=== PATIENT | female | born 1960 | race Caucasian/White ===

== ENCOUNTER 2018-07-26 16:58 | Inpatient (IN) | payer OTHER ==
[2018-07-26 19:07] LABS: Basophils # (A) 0.1 k/uL (0-0.2); Basophils % (A) 1 %; Eosinophils # (A) 0.1 k/uL (0-0.7); Eosinophils % (A) 2 %; HCT 44.6 % (34.0-46.0); HGB 14.7 gm/dL (11.4-16.0); Lymphocytes # (A) 1.6 k/uL (1.0-4.8); Lymphocytes % (A) 23 %; MCH 28.5 pg (25.0-35.0); MCV 86.3 fL (80.0-100.0); Mean Platelet Volume 5.9; Monocytes # (A) 0.4 k/uL (0-1.0); Monocytes % (A) 6 %; Neutrophils # (A) 4.6 k/uL (1.3-7.7); Neutrophils % (A) 66 %; Platelet Count 419 k/uL (150-450); RBC 5.17 m/uL (3.80-5.40)
[2018-07-26 19:10] LABS: ALT 15 U/L (9-52); AST 19 U/L (14-36); Albumin 3.7 g/dL (3.5-5.0); Alkaline Phosphatase 77 U/L (38-126); Amylase 52 U/L (30-110); Anion Gap 17 mmol/L; Blood Urea Nitrogen 15 mg/dL (7-17); Calcium 9.4 mg/dL (8.4-10.2); Carbon Dioxide 21 mmol/L (22-30); Chloride 94 mmol/L (98-107); Glucose 108 mg/dL (74-99); Lipase 29 U/L (23-300); Sodium 132 mmol/L (137-145); Total Bilirubin 0.8 mg/dL (0.2-1.3); Total Protein 7.5 g/dL (6.3-8.2)
[2018-07-26 19:11] LABS: Potassium 3.5 mmol/L (3.5-5.1)
[2018-07-26] MEDS ORDERED: SODIUM CHLORIDE 0.9% 1,000 ML IV ONE (20:21)
[2018-07-26 20:24] LABS: Amorphous Sediment,Urine Occasional /hpf; Appearance,Urine Cloudy (Clear); Bilirubin,Urine 1+ (Negative); Blood,Urine Negative (Negative); Color,Urine Dark Yellow; Glucose,Urine (UA) Negative (Negative); Ketones,Urine 3+ (Negative); Leukocyte Esterase,Urine Small (Negative); Mucus,Urine Many /hpf; Nitrite,Urine Negative (Negative); Protein,Urine 1+ (Negative); RBC,Urine 3 /hpf (0-5); Specific Gravity,Urine 1.028 (1.001-1.035); Squamous Epithelial Cell,Urine 25 /hpf (0-4); WBC,Urine 16 /hpf (0-5)
--- NOTE | 2018-07-26 20:27 | XR ---
EXAMINATION TYPE: XR KUB DATE OF EXAM: 07/26/2018 COMPARISON: NONE HISTORY: Pain for 3 weeks with nausea, intermittent pain for 6 months. TECHNIQUE: 2 upright views to include the abdomen and pelvis FINDINGS: The visualized lung bases and pleural spaces are unremarkable. There is no pneumoperitoneum and no pneumatosis. There are several mildly dilated gas-distended loops of bowel in the upper quadrant and mid abdominal areas. There are a few of these loops in the lower quadrants, but less than the upper quadrants. Gas is seen within the colon. There is prominent volume of stool throughout the descending and sigmoi d colon. IMPRESSION: 1. PATTERN SUGGESTS NONOBSTRUCTIVE ILEUS; WOULD SUGGEST SHORT INTERVAL FOLLOW-UP RADIOGRAPHS OR CT. 2. RADIOGRAPHIC FINDINGS OF CONSTIPATION.
--- NOTE | 2018-07-26 21:02 | ED ---
Abdominal Pain HPI - General Source: patient Mode of arrival: ambulatory Limitations: no limitations <Shannon Donaldson - Last Filed: 07/27/18 02:07> <Julia Marcos - Last Filed: 07/27/18 02:52> - General Chief Complaint: Abdominal Pain Stated Complaint: POSS DEHYDRATION, SENT BY [facility] Time Seen by Provider: 07/26/18 19:25 - History of Present Illness Initial Comments: 58 year-old female patient presents to the emergency department today sent in by her primary care physician for dehydration. The states that she has been having abdominal pain for the last 6 months. Patient states that multiple times a day she gets this crampy severe abdominal pain. States that she has had frequent nausea and vomiting. States that she is unable to keep down any food or fluids. States it has been 3-4 days and she has had a decent meal. She denies any fevers or chills with this. Denies any chest pain or shortness of breath. States she has not had a bowel movement, but states she has been eating. States that she did have labs that her primary care physician's office that showed she was dehydrated. Patient denies any recent rash, back pain, numbness, tingling, dizziness, weakness, hematuria, dysuria, urinary urgency, urinary frequency, headache, visual changes, or any other complaints. (Shannon Donaldson) - Related Data Home Medications Medication Instructions Recorded Confirmed Omeprazole 20 mg PO DAILY 07/26/18 07/27/18 Sucralfate [Carafate] 1 gram PO TID 07/26/18 07/26/18 Allergies Allergy/AdvReac Type Severity Reaction Status Date / Time No Known Allergies Allergy Verified 07/26/18 20:15 Review of Systems ROS Other: All systems not noted in ROS Statement are negative. <Shannon Donaldson - Last Filed: 07/27/18 02:07> ROS Other: All systems not noted in ROS Statement are negative. <Julia Marcos - Last Filed: 07/27/18 02:52> ROS Statement: Those systems with pertinent positive or pertinent negative responses have been documented in the HPI. Past Medical History Past Medical History: No Reported History History of Any Multi-Drug Resistant Organisms: None Reported Past Surgical History: Hysterectomy, Orthopedic Surgery Past Psychological History: No Psychological Hx Reported Smoking Status: Never smoker Past Alcohol Use History: Occasional Past Drug Use History: None Reported - Past Family History Mother Family Medical History: Coronary Artery Disease (CAD), Diabetes Mellitus Father Family Medical History: Diabetes Mellitus Additional Family Medical History / Comment(s): parkinsons <Shannon Donaldson - Last Filed: 07/27/18 02:07> General Exam Limitations: no limitations General appearance: alert, in no apparent distress, other (This is a well- developed, well-nourished adult female patient in no acute distress. Vital signs upon presentation are temperature 98.3F, pulse 127, respirations 18, blood pressure 117/90, pulse ox 95% on room air.) Eye exam: Present: normal appearance, PERRL, EOMI. Absent: scleral icterus, conjunctival injection, periorbital swelling ENT exam: Present: normal exam, normal oropharynx, mucous membranes moist Respiratory exam: Present: normal lung sounds bilaterally. Absent: respiratory distress, wheezes, rales, rhonchi, stridor Cardiovascular Exam: Present: regular rate, normal rhythm, normal heart sounds. Absent: systolic murmur, diastolic murmur, rubs, gallop, clicks GI/Abdominal exam: Present: soft, tenderness (Lower abdominal tenderness), normal bowel sounds. Absent: distended, guarding, rebound, rigid Neurological exam: Present: alert, oriented X3, CN II-XII intact Psychiatric exam: Present: normal affect, normal mood Skin exam: Present: warm, dry, intact, normal color. Absent: rash <Shannon Donaldson M - Last Filed: 07/27/18 02:07> Vital Signs 07/26/18 07/26/18 17:54 23:39 Temperature 98.3 F 97.7 F Pulse Rate 127 H 90 Respiratory 18 16 Rate Blood Pressure 117/90 118/83 O2 Sat by Pulse 95 98 Oximetry Medical Decision Making - Lab Data Result diagrams: 07/26/18 18:40 07/26/18 18:40 - EKG Data -: EKG Interpreted by Ca - Radiology Data Radiology results: report reviewed, image reviewed <Shannon Donaldson M - Last Filed: 07/27/18 02:07> - Lab Data Result diagrams: 07/26/18 18:40 07/26/18 18:40 <Julia Marcos - Last Filed: 07/27/18 02:52> - Medical Decision Making 58 year-old female patient presents to the emergency department today for evaluation of abdominal pain, vomiting, dehydration. Physical examination did reveal lower abdominal tenderness. Labs reviewed and are relatively unremarkable however should exhibit a anion gap of 17 with carbon dioxide of 21. We did administer IV fluids. Urinalysis showed 16 white blood cells however 25 squamous epithelial cells are present, we did send this for culture. We did obtain CT abdomen and pelvis which showed evidence for diverticular abscess and partial bowel obstruction. We will admit to medicine with consult to surgery. Dr. Marcos my attending did discuss the case with plumbing engineering draftsperson surgeon Dr. Mcnamara. (Shannon Donaldson) I personally saw and examined the patient. I reviewed and agree with the mid- level provider findings including all diagnostic interpretations and treatment plans. I discussed patient care with general surgeon on-call Dr. Mcnamara who recommended admission to medicine, continued IV fluid rehydration, continued antibiotics. She will evaluate the patient. I discussed patient care with Dr. Bear of the [facility] who accepts the admission. (Julia Marcos) - Lab Data Lab Results 07/26/18 07/26/18 07/26/18 Range/Units 18:40 18:40 20:05 WBC 7.0 (3.8-10.6) k/uL RBC 5.17 (3.80-5.40) m/uL Hgb 14.7 (11.4-16.0) gm/dL Hct 44.6 (34.0-46.0) % MCV 86.3 (80.0-100.0) fL MCH 28.5 (25.0-35.0) pg MCHC 33.0 (31.0-37.0) g/dL RDW 13.0 (11.5-15.5) % Plt Count 419 (150-450) k/uL Neutrophils % 66 % Lymphocytes % 23 % Monocytes % 6 % Eosinophils % 2 % Basophils % 1 % Neutrophils # 4.6 (1.3-7.7) k/uL Lymphocytes # 1.6 (1.0-4.8) k/uL Monocytes # 0.4 (0-1.0) k/uL Eosinophils # 0.1 (0-0.7) k/uL Basophils # 0.1 (0-0.2) k/uL Sodium 132 L (137-145) mmol/L Potassium 3.5 (3.5-5.1) mmol/L Chloride 94 L (98-107) mmol/L Carbon Dioxide 21 L (22-30) mmol/L Anion Gap 17 mmol/L BUN 15 (7-17) mg/dL Creatinine 0.68 (0.52-1.04) mg/dL Est GFR (CKD-EPI)AfAm >90 (>60 ml/min/1.73 sqM) Est GFR (CKD-EPI)NonAf >90 (>60 ml/min/1.73 sqM) Glucose 108 H (74-99) mg/dL Calcium 9.4 (8.4-10.2) mg/dL Total Bilirubin 0.8 (0.2-1.3) mg/dL AST 19 (14-36) U/L ALT 15 (9-52) U/L Alkaline Phosphatase 77 (38-126) U/L Total Protein 7.5 (6.3-8.2) g/dL Albumin 3.7 (3.5-5.0) g/dL Amylase 52 (30-110) U/L Lipase 29 (23-300) U/L Urine Color Dark Yellow Urine Appearance Cloudy H (Clear) Urine pH 6.0 (5.0-8.0) Ur Specific [place] 1.028 (1.001-1.035) Urine Protein 1+ H (Negative) Urine Glucose (UA) Negative (Negative) Urine Ketones 3+ H (Negative) Urine Blood Negative (Negative) Urine Nitrite Negative (Negative) Urine Bilirubin 1+ H (Negative) Urine Urobilinogen 6.0 (<2.0) mg/dL Ur Leukocyte Esterase Small H (Negative) Urine RBC 3 (0-5) /hpf Urine WBC 16 H (0-5) /hpf Ur Squamous Epith Cells 25 H (0-4) /hpf Amorphous Sediment Occasional H (None) /hpf Urine Mucus Many H (None) /hpf - EKG Data EKG Comments: EKG obtained at 2115 shows sinus tachycardia with a ventricular rate of 104, IL interval 126, QRS duration 72, QT 366, QTC 481. No evidence of ST elevation or depression. (Shannon Donaldson) - Radiology Data CT abdomen and pelvis with contrast was obtained. Report was reviewed in its entirety. Impression by Dr. Rani Vick reveals a 4 cm mean diameter diverticular abscess in the left lower quadrant, with associated partial bowel obstruction. (Shannon Donaldson) Disposition Decision to Admit Reason: Admit from EC Decision Date: 07/26/18 Decision Time: 23:20 <Shannon Donaldson - Last Filed: 07/27/18 02:07> <Julia Marcos - Last Filed: 07/27/18 02:52> Clinical Impression: Colonic diverticular abscess, Partial bowel obstruction Disposition: ADMITTED IP TO THIS [facility] Condition: Serious
--- NOTE | 2018-07-26 22:08 | CT ---
EXAMINATION TYPE: CT abdomen pelvis w con DATE OF EXAM: 07/26/2018 COMPARISON: None HISTORY: ABD pain x3 weeks with nausea. HX of intermittent ABD pain x6 months. No previous report. CT DLP: 624.8 mGycm Automated exposure control for dose reduction was used. TECHNIQUE: Helical acquisition of images was performed from the lung bases through the pelvis. CONTRAST: Performed without Oral Contrast and with IV Contrast, patient injected with 100 mL of Isovue 300. FINDINGS: LUNG BASES: No significant abnormality is appreciated. LIVER/GB: No significant abnormality is appreciated. PANCREAS: No significant abnormality is seen. SPLEEN: No significant abnormality is seen. ADRENALS: No significant abnormality is seen. KIDNEYS: No significant abnormality is seen. FREE AIR: No free air is visualized. No peritoneal fluid. RETROPERITONEAL ADENOPATHY: None visualized REPRODUCTIVE ORGANS: No significant abnormality is seen URINARY BLADDER: No significant abnormality is seen. PELVIC ADENOPATHY: None visualized. OSSEOUS STRUCTURES: No significant abnormality is seen. BOWEL: In the left lower quadrant anteriorly is an ill-defined focal fluid collection measuring 4 cm mean diameter. This is situated at the undersurface of the distal most descending colon, and likely represents diverticular abscess as there is circumferential mural thickening to the colon in this pos ition, i.e. the junction of the descending and proximal sigmoid colon. There is distention of the col on and small bowel proximal to this finding, with relative collapse of the caliber of the colon dista lly but with gas seen throughout the sigmoid and rectum. There is no pneumatosis. OTHER: No acute vascular findings. IMPRESSION: 4 CM MEAN DIAMETER DIVERTICULAR ABSCESS IN THE LEFT LOWER QUADRANT, WITH ASSOCIATED PARTIAL BOWEL OBS TRUCTION.
[2018-07-26] MEDS ORDERED: NALOXONE 0.4 MG/ML 1 ML VIAL IV PRN (22:30)
[2018-07-26] MEDS ORDERED: MORPHINE SULFATE 4 MG/ML SYRINGE IV PRN (22:30)
[2018-07-26] MEDS ORDERED: PIPERACILLIN-TAZOBACTAM 3.375 GM in SODIUM CHLORIDE 0.9% 100 ML IVPB STA (23:08)
[2018-07-26] MEDS: SODIUM CHLORIDE 0.9% 1,000 ML IV SCH (23:36)
--- NOTE | 2018-07-27 06:31 | P.HPIM ---
History of Present Illness H&P Date: 07/26/18 Chief Complaint: abd pain, poor PO intake 58-year-old female with no significant past medical history Patient presented to the hospital upon recommendations of her PCP for treatment of dehydration. Patient went today to visit her PCP due to progressive poor by mouth intake for the past few weeks, along with repeated nausea vomiting. Patient started to feel generalized weakness and tired as she has been having abdominal pain for the past 6 months progressive in nature she thought she might be having the flu and was refusing to go to the hospital or her doctor to be evaluated. She describes random attacks during the day of crampy abdominal pain varies in severity usually all over her belly. She denies any associated diarrhea or bloody bowel movement or any fevers or chills. However over the past week her nausea vomiting became more frequent and she couldn't keep anything down. Which triggered her to seek medical attention. Patient went to her PCP and blood work suggested dehydration for which he recommended that she goes to the hospital. In the emergency department CAT scan of the abdomen showed 4 cm diverticular abscess with partial bowel obstruction for which she was admitted for further management. Patient otherwise denies any similar conditions in the past or history of diverticular disease. She denies any fevers or chills denies any chest pain or trouble breathing denies any GI bleeding denies any focal neurologic deficits. Upon interviewing the patient she was feeling comfortable as she reported that the pain comes and goes Review of Systems Pertinent positives as noted in HPI. All other systems were reviewed and are negative Past Medical History Past Medical History: No Reported History History of Any Multi-Drug Resistant Organisms: None Reported Past Surgical History: Hysterectomy, Orthopedic Surgery Past Psychological History: No Psychological Hx Reported Smoking Status: Never smoker Past Alcohol Use History: Occasional Past Drug Use History: None Reported - Past Family History Mother Family Medical History: Coronary Artery Disease (CAD), Diabetes Mellitus Father Family Medical History: Diabetes Mellitus Additional Family Medical History / Comment(s): parkinsons Medications and Allergies Home Medications Medication Instructions Recorded Confirmed Type Omeprazole 20 mg PO DAILY 07/26/18 07/27/18 History Sucralfate [Carafate] 1 gram PO TID 07/26/18 07/26/18 History Allergies Allergy/AdvReac Type Severity Reaction Status Date / Time No Known Allergies Allergy Verified 07/26/18 20:15 Physical Exam Vitals: Vital Signs Temp Pulse Pulse Resp BP BP Pulse Ox 07/27/18 04:15 98.6 F 109 H 18 96 07/27/18 00:33 97.5 F L 114 H 18 120/81 97 07/27/18 00:30 114 H 07/26/18 23:39 97.7 F 90 16 118/83 98 07/26/18 17:54 98.3 F 127 H 18 117/90 95 Intake and Output 07/26/18 07/26/18 07/27/18 14:59 22:59 06:59 Output Total 250 Balance -250 Output: Urine 250 Other: Voiding Method Toilet # Voids 1 Weight 52.163 kg Constitutional: No acute distress, conversant, pleasant, patient looks older than her stated age Eyes: Anicteric sclerae, moist conjunctiva, no lid-lag Pupils equal round reactive to light ENMT: NC/AT Oropharynx clear, no erythema, exudates Neck: Supple, FROM, no masses, or JVD No carotid bruits No thyromegaly Lungs: Clear to auscultation Clear to percussion Normal respiratory effort, no accessory muscle use Cardiovascular: Heart regular in rate and rhythm, No murmurs, gallops, or rubs No peripheral edema Abdominal: Soft Tenderness to palpation mainly over the left lower quadrant with rebound tenderness and voluntary guarding no rigidity Abdomen moving with respiration Normoactive bowel sounds throughout No hepatomegaly, No splenomegaly No palpable mass No abdominal wall hernia noted Skin: Normal temperature, tone, texture, turgor No induration No subcutaneous nodules No rash, lesions No ulcers Extremities: No digital cyanosis No clubbing Pedal pulses intact and symmetrical Radial pulses intact and symmetrical No calf tenderness Psychiatric: Alert and oriented to person, place and time Appropriate affect fair judgment Neuro Muscles Strength 5/5 in all 4 extremities Sensation to light touch grossly present throughout Cranial nerves II-XII grossly intact No focal sensory deficits Lymphatics: no palpable cervical or supraclavicular , or inguinal lymph nodes Results CBC & Chem 7: 07/26/18 18:40 07/26/18 18:40 Labs: Abnormal Lab Results - Last 24 Hours (Table) 07/26/18 07/26/18 Range/Units 18:40 20:05 Sodium 132 L (137-145) mmol/L Chloride 94 L (98-107) mmol/L Carbon Dioxide 21 L (22-30) mmol/L Glucose 108 H (74-99) mg/dL Urine Appearance Cloudy H (Clear) Urine Protein 1+ H (Negative) Urine Ketones 3+ H (Negative) Urine Bilirubin 1+ H (Negative) Ur Leukocyte Esterase Small H (Negative) Urine WBC 16 H (0-5) /hpf Ur Squamous Epith Cells 25 H (0-4) /hpf Amorphous Sediment Occasional H (None) /hpf Urine Mucus Many H (None) /hpf Thrombosis Risk Factor Assmnt - Choose All That Apply Each Factor Represents 1 point: Age 41-60 years Other Risk Factors: No Other congenital or acquired thrombophilia - If yes, enter type in comment: No Thrombosis Risk Factor Assessment Total Risk Factor Score: 1 Thrombosis Risk Factor Assessment Level: Low Risk Assessment and Plan Assessment: 58-year-old female with no significant past medical history admitted as inpatient with anticipated length of stay of >48 hours, acute diverticular abscess with partial bowel obstruction patient had been having symptoms progressive for the past 6 months however over the past couple weeks symptoms worsen and was associated with poor by mouth intake. and repeated nausea vomiting Plan: Acute diverticular abscess Partial bowel obstruction Dehydration secondary to poor by mouth intake Nothing by mouth Aggressive IV fluid hydration Morphine when necessary for pain control IV antibiotics with Zosyn Check cultures General surgery consult Close monitoring vital signs Follow-up labs DVT prophylaxis heparin subcu 3 times a day Surrogate decision-maker: Patient CODE STATUS: Full code Discussed with: Patient, ER, RN Anticipated discharge: 48-[address]: Home A total of 60 minutes was spent on the care of this complex patient more than 50% of the time was spent in counseling and care coordination.
[2018-07-27] MEDS ORDERED: KETOROLAC 30 MG/ML 1 ML VIAL IVP STA (07:57)
[2018-07-27] MEDS: HEPARIN SODIUM,PORCINE 5,000 UNIT/ML 1 ML VIAL SQ SCH ×2 (08:50→16:19)
[2018-07-27] MEDS: PIPERACILLIN-TAZOBACTAM 3.375 GM in SODIUM CHLORIDE 0.9% 100 ML IVPB SCH ×2 (08:55→16:27)
[2018-07-27] MEDS ORDERED: IOPAMIDOL-300 CONTRAST 30 ML VIAL (ORAL USE) PO PRN (12:50)
[2018-07-27] MEDS: PANTOPRAZOLE 40 MG/10 ML VIAL IVP SCH (12:59)
[2018-07-27] MEDS: ONDANSETRON 4 MG/2 ML VIAL IVP PRN (13:09)
[2018-07-27 13:19] LABS: INR 2.2 (<1.2); Prothrombin Time 21.6 sec (9.0-12.0)
--- NOTE | 2018-07-27 14:27 | P.GSCN ---
<Maya Reyes A - Last Filed: 07/27/18 14:29> History of Present Illness Consult date: 07/27/18 Reason for Consult: Diverticular abscess Requesting physician: Shannon Donaldson History of present illness: CHIEF COMPLAINT: Abdominal pain HISTORY OF PRESENT ILLNESS: A 58-year-old female who presented to the emergency room a chief complaint of abdominal pain. Patient states she has intermittent abdominal pain for the last 6 months. She reports over the past few weeks the pain has increased in severity. She states she has had very little to eat or drink in the past three weeks. She reports bloating. Denies nausea or vomiting. Reports she has not undergone a colonoscopy in the past. PAST MEDICAL HISTORY: See list. PAST SURGICAL HISTORY: See list. MEDICATIONS: See list. ALLERGIES: See list. SOCIAL HISTORY: No illicit drug use. REVIEW OF SYSTEMS: CONSTITUTIONAL: Denies fever or chills. HEENT: Denies blurred vision, vision changes, or eye pain. Denies hemoptysis ENDOCRINE: Denies heat or cold intolerance. CARDIOVASCULAR: Denies chest pain or pressure. RESPIRATORY: No shortness of breath. GASTROINTESTINAL: Reports abdominal pain. Reports bloating. Denies nausea or vomiting. NEURO: Denies history of seizures. PSYCH: No depression or suicidal ideation HEMATOLOGIC: Denies bleeding disorders. LYMPHATIC: The patient denies any lumps and bumps around the neck. GENITOURINARY: Denies any blood in urine or increased urinary frequency. MUSCULOSKELETAL: Denies myalgias. Denies joint swelling. Denies decreased range of motion beyond patients baseline. SKIN: Denies pruitis. Denies rash. PHYSICAL EXAM: VITAL SIGNS: Currently stable. GENERAL: Well-developed in no acute distress. HEENT: No sclera icterus. Extraocular movements grossly intact. Moist buccal mucosa. Head is atraumatic, normocephalic. Hears conversational speech. No nasal drainage. NECK: Supple without lymphadenopathy. CHEST: Non-labored respirations and equal bilateral excursions. CARDIOVASCULAR: Regular rate with regular rhythm. Palpable 2+ radial pulses. ABDOMEN: Soft. Distended. Pain and tenderness noted upon palpation of left lower quadrant. MUSCULOSKELETAL: No clubbing, cyanosis or edema. NEUROLOGIC: No focal or lateralizing signs. Cranial nerves II through XII grossly intact. PSYCH: Appropriate affect. Alert and oriented to person, place and time. SKIN: Well perfused. Good skin turgor. IMAGING: Per radiology dictation: 1. CT abdomen/pelvis: 4cm mean diameter diverticular abscess in the left lower quadrant with associated partial bowel obstruction ASSESSMENT: 1. Abdominal pain, bloating, and decreased PO intake x 3 weeks 2. Diverticular abscess 3. Partial bowel obstruction, secondary to above PLAN: Various treatment options discussed with patient including surgery resulting in colostomy. Patient would like to try all other measures before proceeding with surgical intervention. Will consult interventional radiology for drainage of abscess. Patient may have water and ice chips as tolerated. If patient complains of increased bloating or begins vomiting, she will require NG tube for decompression. Continue IV antibiotics. Continue IV fluids. Patient will also require colonoscopy in the future when acute issues are resolved. Nurse practitioner note has been reviewed by physician. Signing provider agrees with the documented findings, assessment, and plan of care. Past Medical History Past Medical History: No Reported History History of Any Multi-Drug Resistant Organisms: None Reported Past Surgical History: Hysterectomy, Orthopedic Surgery Past Psychological History: No Psychological Hx Reported Smoking Status: Never smoker Past Alcohol Use History: Occasional Past Drug Use History: None Reported - Past Family History Mother Family Medical History: Coronary Artery Disease (CAD), Diabetes Mellitus Father Family Medical History: Diabetes Mellitus Additional Family Medical History / Comment(s): parkinsons Medications and Allergies Home Medications Medication Instructions Recorded Confirmed Type Omeprazole 20 mg PO DAILY 07/26/18 07/27/18 History Sucralfate [Carafate] 1 gram PO TID 07/26/18 07/26/18 History Allergies Allergy/AdvReac Type Severity Reaction Status Date / Time No Known Allergies Allergy Verified 07/26/18 20:15 Surgical - Exam Vital Signs Temp Pulse Resp BP Pulse Ox 98.3 F 127 H 18 117/90 95 07/26/18 17:54 07/26/18 17:54 07/26/18 17:54 07/26/18 17:54 07/26/18 17:54 Results - Labs 07/26/18 18:40 07/26/18 18:40 Abnormal Lab Results - Last 24 Hours (Table) 07/26/18 07/26/18 07/27/18 Range/Units 18:40 20:05 13:01 PT 21.6 H (9.0-12.0) sec INR 2.2 H (<1.2) Sodium 132 L (137-145) mmol/L Chloride 94 L (98-107) mmol/L Carbon Dioxide 21 L (22-30) mmol/L Glucose 108 H (74-99) mg/dL Urine Appearance Cloudy H (Clear) Urine Protein 1+ H (Negative) Urine Ketones 3+ H (Negative) Urine Bilirubin 1+ H (Negative) Ur Leukocyte Esterase Small H (Negative) Urine WBC 16 H (0-5) /hpf Ur Squamous Epith Cells 25 H (0-4) /hpf Amorphous Sediment Occasional H (None) /hpf Urine Mucus Many H (None) /hpf Microbiology - Last 24 Hours (Table) 07/26/18 20:05 Urine Culture - Preliminary Urine,Voided Diabetes panel 07/26/18 Range/Units 18:40 Sodium 132 L (137-145) mmol/L Potassium 3.5 (3.5-5.1) mmol/L Chloride 94 L (98-107) mmol/L Carbon Dioxide 21 L (22-30) mmol/L BUN 15 (7-17) mg/dL Creatinine 0.68 (0.52-1.04) mg/dL Glucose 108 H (74-99) mg/dL Calcium 9.4 (8.4-10.2) mg/dL AST 19 (14-36) U/L ALT 15 (9-52) U/L Alkaline Phosphatase 77 (38-126) U/L Total Protein 7.5 (6.3-8.2) g/dL Albumin 3.7 (3.5-5.0) g/dL Calcium panel 07/26/18 Range/Units 18:40 Calcium 9.4 (8.4-10.2) mg/dL Albumin 3.7 (3.5-5.0) g/dL Pituitary panel 07/26/18 Range/Units 18:40 Sodium 132 L (137-145) mmol/L Potassium 3.5 (3.5-5.1) mmol/L Chloride 94 L (98-107) mmol/L Carbon Dioxide 21 L (22-30) mmol/L BUN 15 (7-17) mg/dL Creatinine 0.68 (0.52-1.04) mg/dL Glucose 108 H (74-99) mg/dL Calcium 9.4 (8.4-10.2) mg/dL Adrenal panel 07/26/18 Range/Units 18:40 Sodium 132 L (137-145) mmol/L Potassium 3.5 (3.5-5.1) mmol/L Chloride 94 L (98-107) mmol/L Carbon Dioxide 21 L (22-30) mmol/L BUN 15 (7-17) mg/dL Creatinine 0.68 (0.52-1.04) mg/dL Glucose 108 H (74-99) mg/dL Calcium 9.4 (8.4-10.2) mg/dL Total Bilirubin 0.8 (0.2-1.3) mg/dL AST 19 (14-36) U/L ALT 15 (9-52) U/L Alkaline Phosphatase 77 (38-126) U/L Total Protein 7.5 (6.3-8.2) g/dL Albumin 3.7 (3.5-5.0) g/dL Assessment and Plan (1) Abdominal pain Current Visit: Yes Status: Acute Code(s): R10.9 - UNSPECIFIED ABDOMINAL PAIN SNOMED Code(s): 57982991 (2) Decreased oral intake Current Visit: Yes Status: Acute Code(s): R63.8 - OTHER SYMPTOMS AND SIGNS CONCERNING FOOD AND FLUID INTAKE SNOMED Code(s): 354483218 (3) Colonic diverticular abscess Current Visit: Yes Status: Acute Code(s): K57.20 - DVTRCLI OF LG INT W PERFORATION AND ABSCESS W/O BLEEDING SNOMED Code(s): 954758207 (4) Partial bowel obstruction Current Visit: Yes Status: Acute Code(s): K56.600 - PARTIAL INTESTINAL OBSTRUCTION, UNSPECIFIED TO CAUSE SNOMED Code(s): 57535176 <Ava Mcnamara N - Last Filed: 07/27/18 16:52> Surgical - Exam Vital Signs Temp Pulse Resp BP Pulse Ox 98.3 F 127 H 18 117/90 95 07/26/18 17:54 07/26/18 17:54 07/26/18 17:54 07/26/18 17:54 07/26/18 17:54 Results - Labs 07/26/18 18:40 07/26/18 18:40 Abnormal Lab Results - Last 24 Hours (Table) 07/26/18 07/26/18 07/27/18 Range/Units 18:40 20:05 13:01 PT 21.6 H (9.0-12.0) sec INR 2.2 H (<1.2) Sodium 132 L (137-145) mmol/L Chloride 94 L (98-107) mmol/L Carbon Dioxide 21 L (22-30) mmol/L Glucose 108 H (74-99) mg/dL Urine Appearance Cloudy H (Clear) Urine Protein 1+ H (Negative) Urine Ketones 3+ H (Negative) Urine Bilirubin 1+ H (Negative) Ur Leukocyte Esterase Small H (Negative) Urine WBC 16 H (0-5) /hpf Ur Squamous Epith Cells 25 H (0-4) /hpf Amorphous Sediment Occasional H (None) /hpf Urine Mucus Many H (None) /hpf 07/27/18 Range/Units 15:26 PT 22.2 H (9.0-12.0) sec INR 2.3 H (<1.2) Sodium (137-145) mmol/L Chloride (98-107) mmol/L Carbon Dioxide (22-30) mmol/L Glucose (74-99) mg/dL Urine Appearance (Clear) Urine Protein (Negative) Urine Ketones (Negative) Urine Bilirubin (Negative) Ur Leukocyte Esterase (Negative) Urine WBC (0-5) /hpf Ur Squamous Epith Cells (0-4) /hpf Amorphous Sediment (None) /hpf Urine Mucus (None) /hpf Microbiology - Last 24 Hours (Table) 07/26/18 20:05 Urine Culture - Preliminary Urine,Voided Diabetes panel 07/26/18 Range/Units 18:40 Sodium 132 L (137-145) mmol/L Potassium 3.5 (3.5-5.1) mmol/L Chloride 94 L (98-107) mmol/L Carbon Dioxide 21 L (22-30) mmol/L BUN 15 (7-17) mg/dL Creatinine 0.68 (0.52-1.04) mg/dL Glucose 108 H (74-99) mg/dL Calcium 9.4 (8.4-10.2) mg/dL AST 19 (14-36) U/L ALT 15 (9-52) U/L Alkaline Phosphatase 77 (38-126) U/L Total Protein 7.5 (6.3-8.2) g/dL Albumin 3.7 (3.5-5.0) g/dL Calcium panel 07/26/18 Range/Units 18:40 Calcium 9.4 (8.4-10.2) mg/dL Albumin 3.7 (3.5-5.0) g/dL Pituitary panel 07/26/18 Range/Units 18:40 Sodium 132 L (137-145) mmol/L Potassium 3.5 (3.5-5.1) mmol/L Chloride 94 L (98-107) mmol/L Carbon Dioxide 21 L (22-30) mmol/L BUN 15 (7-17) mg/dL Creatinine 0.68 (0.52-1.04) mg/dL Glucose 108 H (74-99) mg/dL Calcium 9.4 (8.4-10.2) mg/dL Adrenal panel 07/26/18 Range/Units 18:40 Sodium 132 L (137-145) mmol/L Potassium 3.5 (3.5-5.1) mmol/L Chloride 94 L (98-107) mmol/L Carbon Dioxide 21 L (22-30) mmol/L BUN 15 (7-17) mg/dL Creatinine 0.68 (0.52-1.04) mg/dL Glucose 108 H (74-99) mg/dL Calcium 9.4 (8.4-10.2) mg/dL Total Bilirubin 0.8 (0.2-1.3) mg/dL AST 19 (14-36) U/L ALT 15 (9-52) U/L Alkaline Phosphatase 77 (38-126) U/L Total Protein 7.5 (6.3-8.2) g/dL Albumin 3.7 (3.5-5.0) g/dL Assessment and Plan Plan: Agree with above. Patient does not want surgery. She feels much better. Will need re-evaluation for elevated INR. At this time, no surgical intervention.
[2018-07-27 15:46] LABS: INR 2.3 (<1.2); Prothrombin Time 22.2 sec (9.0-12.0)
[2018-07-27] MEDS: SODIUM CHLORIDE 0.9% 1,000 ML IV SCH (16:26)
[2018-07-27] MEDS: KETOROLAC 30 MG/ML 1 ML VIAL IVP SCH ×2 (17:20→23:59)
[2018-07-27] MEDS ORDERED: PHYTONADIONE ORAL 5 MG/5 ML ORAL.SYRG PO STA (23:26)
[2018-07-27] MEDS ORDERED: ACETAMINOPHEN TAB 325 MG TAB PO PRN (23:32)
[2018-07-28] MEDS: SODIUM CHLORIDE 0.9% 1,000 ML IV SCH ×2 (05:11→16:10)
[2018-07-28] MEDS: KETOROLAC 30 MG/ML 1 ML VIAL IVP SCH ×4 (06:12→23:37)
[2018-07-28 06:42] LABS: HCT 38.2 % (34.0-46.0); HGB 12.6 gm/dL (11.4-16.0); MCH 29.4 pg (25.0-35.0); Mean Platelet Volume 6.2; Platelet Count 347 k/uL (150-450); RBC 4.29 m/uL (3.80-5.40); RDW 13.5 % (11.5-15.5); WBC 7.3 k/uL (3.8-10.6)
[2018-07-28 06:56] LABS: Anion Gap 10 mmol/L; Blood Urea Nitrogen 8 mg/dL (7-17); Carbon Dioxide 21 mmol/L (22-30); Chloride 101 mmol/L (98-107); Glucose 83 mg/dL (74-99); Potassium 4.4 mmol/L (3.5-5.1); Sodium 132 mmol/L (137-145)
[2018-07-28 07:16] LABS: INR 1.4 (<1.2); Partial Thromboplastin Time 28.2 sec (22.0-30.0); Prothrombin Time 13.9 sec (9.0-12.0)
[2018-07-28] MEDS: PIPERACILLIN-TAZOBACTAM 3.375 GM in SODIUM CHLORIDE 0.9% 100 ML IVPB SCH ×5 (08:31→23:38)
[2018-07-28] MEDS: PANTOPRAZOLE 40 MG/10 ML VIAL IVP SCH (08:31)
[2018-07-28] MEDS ORDERED: SODIUM CHLORIDE 0.9% 1,000 ML IV ONE (10:23)
[2018-07-28] MEDS ORDERED: MEROPENEM 1 GM in SODIUM CHLORIDE 0.9% 100 ML IVPB STA (10:29)
--- NOTE | 2018-07-28 11:04 | P.PN ---
<Maya Reyes Sara - Last Filed: 07/28/18 14:40> Subjective Progress Note Date: 07/28/18 CHIEF COMPLAINT: Abdominal pain HISTORY OF PRESENT ILLNESS: Patient examined at the bedside. She states her abdominal pain is about the same as yesterday. Denies passing flatus or bowel movement. Tolerating small sips of water. Patients INR was found to be 2.2 yesterday. Patient is not on anti-coagulation. Patient received Vitamin K and FFP per medicine. INR this morning is 1.4. IR is consulted for drainage of abscess. Patient was febrile overnight with a temperature of 100.4F. She is tachycardic with a heart rate in the 120s. She is currently receiving IV fluid bolus. PHYSICAL EXAM: VITAL SIGNS: Currently stable. GENERAL: Well-developed in no acute distress. HEENT: No sclera icterus. Extraocular movements grossly intact. Moist buccal mucosa. Head is atraumatic, normocephalic. Hears conversational speech. No nasal drainage. NECK: Supple without lymphadenopathy. CHEST: Non-labored respirations and equal bilateral excursions. CARDIOVASCULAR: Regular rate with regular rhythm. Palpable 2+ radial pulses. ABDOMEN: Soft. Distended. Pain and tenderness noted upon palpation of left lower quadrant. MUSCULOSKELETAL: No clubbing, cyanosis or edema. NEUROLOGIC: No focal or lateralizing signs. Cranial nerves II through XII grossly intact. PSYCH: Appropriate affect. Alert and oriented to person, place and time. SKIN: Well perfused. Good skin turgor. IMAGING: Per radiology dictation: 1. CT abdomen/pelvis: 4cm mean diameter diverticular abscess in the left lower quadrant with associated partial bowel obstruction ASSESSMENT: 1. Abdominal pain, bloating, and decreased PO intake x 3 weeks 2. Diverticular abscess 3. Partial bowel obstruction, secondary to above 4. Coagulopathy, not on anticoagulation (patient received 1 dose of subcu heparin upon admission), no previous history of liver disease, etiology unclear PLAN: Patient receiving IV bolus. Continue IV fluids post bolus. Interventional radiology is on consult for drainage of abscess. Patient may have sips of water as tolerated. NPO for 2 hours prior to procedure. If patient complains of increased bloating or begins vomiting, she will require NG tube for decompression. Patient aware she may require surgery resulting in colostomy, but will attempt other measures before proceeding with surgical intervention. Consult hem/onc for evaluation of coagulopathy. Nurse practitioner note has been reviewed by physician. Signing provider agrees with the documented findings, assessment, and plan of care. Objective - Vital Signs Vital signs: Vital Signs Temp 98.3 F 07/28/18 09:45 Pulse 112 H 07/28/18 09:45 Resp 20 07/28/18 09:45 BP 96/65 07/28/18 09:45 Pulse Ox 96 07/28/18 09:45 Intake & Output 07/27/18 07/28/18 07/28/18 18:59 06:59 18:59 Intake Total 283 10 Output Total 500 500 Balance -217 -490 Weight 52.163 kg Intake: Oral 10 Blood Product 283 Ffp 24 Cpd Unit 283 [id number] Output: Urine 500 500 Other: Voiding Method Toilet Toilet # Voids 2 - Labs CBC & Chem 7: 07/28/18 06:21 07/28/18 06:21 Labs: Abnormal Lab Results - Last 24 Hours (Table) 07/27/18 07/27/18 07/28/18 Range/Units 13:01 15:26 06:21 PT 21.6 H 22.2 H 13.9 H (9.0-12.0) sec INR 2.2 H 2.3 H 1.4 H (<1.2) Fibrinogen 518 H (200-500) mg/dL Sodium (137-145) mmol/L Carbon Dioxide (22-30) mmol/L 07/28/18 Range/Units 06:21 PT (9.0-12.0) sec INR (<1.2) Fibrinogen (200-500) mg/dL Sodium 132 L (137-145) mmol/L Carbon Dioxide 21 L (22-30) mmol/L Microbiology - Last 24 Hours (Table) 07/26/18 20:05 Urine Culture - Final Urine,Voided Assessment and Plan (1) Abdominal pain Current Visit: Yes Status: Acute Code(s): R10.9 - UNSPECIFIED ABDOMINAL PAIN SNOMED Code(s): 06625892 (2) Decreased oral intake Current Visit: Yes Status: Acute Code(s): R63.8 - OTHER SYMPTOMS AND SIGNS CONCERNING FOOD AND FLUID INTAKE SNOMED Code(s): 638973588 (3) Colonic diverticular abscess Current Visit: Yes Status: Acute Code(s): K57.20 - DVTRCLI OF LG INT W PERFORATION AND ABSCESS W/O BLEEDING SNOMED Code(s): 632327342 (4) Partial bowel obstruction Current Visit: Yes Status: Acute Code(s): K56.600 - PARTIAL INTESTINAL OBSTRUCTION, UNSPECIFIED TO CAUSE SNOMED Code(s): 38718182 <Ava Mcnamara N - Last Filed: 07/30/18 12:32> Subjective Patient is sore following IR drainage for diverticular abscess. No abdominal bloating. May have liquid diet sparingly. Per patient request, continue conservative management. Objective - Vital Signs Vital signs: Vital Signs Temp 97.3 F L 07/30/18 09:13 Pulse 144 H 07/30/18 09:13 Resp 28 H 07/30/18 09:13 BP 92/61 07/30/18 09:13 Pulse Ox 94 L 07/30/18 09:13 Intake & Output 07/29/18 07/30/18 07/30/18 18:59 06:59 18:59 Intake Total 80 3700 Output Total 525 500 Balance 80 -525 3200 Intake: IV 3700 Oral 80 Output: Urine 525 400 Estimated Blood Loss 100 Other: Voiding Method Toilet Toilet - Labs CBC & Chem 7: 07/30/18 09:24 07/30/18 09:24 Labs: Abnormal Lab Results - Last 24 Hours (Table) 07/30/18 07/30/18 07/30/18 Range/Units 06:17 06:17 06:17 WBC 2.5 L (3.8-10.6) k/uL Neutrophils # (Manual) (1.3-7.7) k/uL Lymphocytes # (Manual) 0.50 L (1.0-4.8) k/uL Metamyelocytes # (Man) 0.13 H (0) k/uL Myelocytes # (Manual) (0) k/uL PT 13.1 H (9.0-12.0) sec INR 1.3 H (<1.2) Sodium 135 L (137-145) mmol/L Potassium (3.5-5.1) mmol/L Chloride 108 H (98-107) mmol/L Carbon Dioxide 12 L (22-30) mmol/L Glucose 111 H (74-99) mg/dL Plasma Lactic Acid Cali (0.7-2.0) mmol/L Calcium 8.3 L (8.4-10.2) mg/dL AST 12 L (14-36) U/L Total Protein 4.8 L (6.3-8.2) g/dL Albumin 2.1 L (3.5-5.0) g/dL 07/30/18 07/30/18 07/30/18 Range/Units 08:20 09:24 09:24 WBC 1.8 L (3.8-10.6) k/uL Neutrophils # (Manual) 1.00 L (1.3-7.7) k/uL Lymphocytes # (Manual) 0.50 L (1.0-4.8) k/uL Metamyelocytes # (Man) 0.07 H (0) k/uL Myelocytes # (Manual) 0.04 H (0) k/uL PT (9.0-12.0) sec INR (<1.2) Sodium 134 L (137-145) mmol/L Potassium 3.2 L (3.5-5.1) mmol/L Chloride 113 H (98-107) mmol/L Carbon Dioxide 13 L (22-30) mmol/L Glucose (74-99) mg/dL Plasma Lactic Acid Cali 2.6 H* (0.7-2.0) mmol/L Calcium 7.5 L (8.4-10.2) mg/dL AST 11 L (14-36) U/L Total Protein 4.1 L (6.3-8.2) g/dL Albumin 1.7 L (3.5-5.0) g/dL Microbiology - Last 24 Hours (Table) 07/28/18 14:30 Gram Stain - Preliminary Cyst Body Fluid Culture - Preliminary Escherichia coli Alpha Hemolytic Streptococcus
--- NOTE | 2018-07-28 11:13 | P.PN ---
Subjective Progress Note Date: 07/28/18 Patient currently nothing by mouth, reports her pain control is adequate, previously on morphine now on Toradol. He does have left lower quadrant abdominal pain. Patient afebrile overnight, and continues to be tachycardic. Initial INR elevated at 2.2 he received 1 dose of subcu heparin. Objective - Vital Signs Vital signs: Vital Signs Temp 98.3 F 07/28/18 09:45 Pulse 112 H 07/28/18 09:45 Resp 20 07/28/18 09:45 BP 96/65 07/28/18 09:45 Pulse Ox 96 07/28/18 09:45 Intake & Output 07/27/18 07/28/18 07/28/18 18:59 06:59 18:59 Intake Total 283 10 Output Total 500 500 Balance -217 -490 Weight 52.163 kg Intake: Oral 10 Blood Product 283 Ffp 24 Cpd Unit 283 [id number] Output: Urine 500 500 Other: Voiding Method Toilet Toilet # Voids 2 - Exam Constitutional: No acute distress, conversant, pleasant Eyes: Anicteric sclerae, moist conjunctiva, no lid-lag, PERRLA ENMT: NC/AT,Oropharynx clear, no erythema, exudates Neck:Supple, FROM, no masses, or JVD, No carotid bruits; No thyromegaly Lungs: Clear to auscultation, Clear to percussion, Normal respiratory effort, no accessory muscle use Cardiovascular: Tachycardic regular rhythm, No murmurs, gallops, or rubs no peripheral edema Abdominal: Soft tender to palpation in the left lower quadrant, nom distended, no guarding, no rebound or rigidity, Normoactive bowel sounds No hepatomegaly, No splenomegaly, No palpable mass No abdominal wall hernia noted Skin: Normal temperature, tone, texture, turgor, No induration No subcutaneous nodules, No rash, lesions, No ulcers Extremities:No digital cyanosis No clubbing, Pedal pulses intact and symmetrical Radial pulses intact and symmetrical Normal gait and station, No calf tenderness Psychiatric: Alert and oriented to person, place and time, Appropriate affect Intact judgement Neuro: Muscles Strength 5/5 in all 4 extremities, Sensation to light touch grossly present throughout, Cranial nerves II-XII grossly intact. No focal sensory deficits - Labs CBC & Chem 7: 07/28/18 06:21 07/28/18 06:21 Labs: Abnormal Lab Results - Last 24 Hours (Table) 07/27/18 07/27/18 07/28/18 Range/Units 13:01 15:26 06:21 PT 21.6 H 22.2 H 13.9 H (9.0-12.0) sec INR 2.2 H 2.3 H 1.4 H (<1.2) Fibrinogen 518 H (200-500) mg/dL Sodium (137-145) mmol/L Carbon Dioxide (22-30) mmol/L 07/28/18 Range/Units 06:21 PT (9.0-12.0) sec INR (<1.2) Fibrinogen (200-500) mg/dL Sodium 132 L (137-145) mmol/L Carbon Dioxide 21 L (22-30) mmol/L Microbiology - Last 24 Hours (Table) 07/26/18 20:05 Urine Culture - Final Urine,Voided Assessment and Plan (1) Sepsis Narrative/Plan: * Secondary to diverticular abscess Urine culture no growth * Patient afebrile overnight tmax 100.4, without leukocytosis continues to be tachycardic, and blood pressure borderline * We'll give her 1 L normal saline bolus and increase her maintenance fluids to 100 mL per hour of normal saline * Previously on IV Zosyn and discontinue and start Merrem with plans for ID consultation Current Visit: Yes Status: Acute Code(s): A41.9 - SEPSIS, UNSPECIFIED ORGANISM SNOMED Code(s): 63700830 (2) Colonic diverticular abscess Narrative/Plan: * 4 cm diverticular abscess in the left lower quadrant * Interventional radiology consulted yesterday for drainage of that particular abscess * Procedure not done at this time secondary to coagulopathy Current Visit: Yes Status: Acute Code(s): K57.20 - DVTRCLI OF LG INT W PERFORATION AND ABSCESS W/O BLEEDING SNOMED Code(s): 694754983 (3) Coagulopathy Narrative/Plan: * Likely secondary to heparin * INR down to 1.4 today from 2.2 after receiving a unit of FFP Current Visit: Yes Status: Acute Code(s): D68.9 - COAGULATION DEFECT, UNSPECIFIED SNOMED Code(s): 03917789 (4) Partial bowel obstruction Narrative/Plan: * Appreciate general surgery recommendations * Patient doing conservative management at this time, further options include colostomy Current Visit: Yes Status: Acute Code(s): K56.600 - PARTIAL INTESTINAL OBSTRUCTION, UNSPECIFIED TO CAUSE SNOMED Code(s): 16877783 (5) Abdominal pain Current Visit: Yes Status: Acute Code(s): R10.9 - UNSPECIFIED ABDOMINAL PAIN SNOMED Code(s): 87942037 Plan: Anticipated discharge 2-3 days
[2018-07-28 11:30] LABS: ALT 24 U/L (9-52); AST 14 U/L (14-36); Albumin 2.9 g/dL (3.5-5.0); Alkaline Phosphatase 65 U/L (38-126); Total Bilirubin 1.4 mg/dL (0.2-1.3)
[2018-07-28] MEDS ORDERED: HYDROmorphone 0.5 MG/0.5 ML SYRINGE IVP PRN (13:46)
[2018-07-28] MEDS ORDERED: HYDROmorphone 1 MG/ML 1 ML SYRINGE IVP PRN (14:00)
--- NOTE | 2018-07-28 15:09 | CT ---
EXAMINATION TYPE: CT guided abscess drainage DATE OF EXAM: 07/28/2018 HISTORY: Diverticular abscess COMPARISON: CT 07/26/2018 PROCEDURE: Maximal barrier technique was utilized. The skin over suitable path to the abscess in the left lower quadrant was localized with CT and the overlying skin prepped and draped. Lidocaine was used for lo arturo anesthesia. A skin landon made with a scalpel. Access was gained using CT guidance with a 21-gaug e needle, purulent material returned in the hub of the needle. A 0.018 inch wire was advanced and th e access site was upsized, the wire was upsized and subsequently an 8.5-[place] drain was deployed wit hin the abscess cavity and fixed in place. Catheter attached to gravity drainage. No immediate comp lication. Purulent material sent for laboratory analysis and draining into the bag. The patient rem ained in stable condition. IMPRESSION: STATUS POST CT GUIDED ABSCESS DRAINAGE, MICROBIOLOGY ANALYSIS IS PENDING. THIS PROCEDURE WAS PERFORM ED BY THE UNDERSIGNED.
[2018-07-28] MEDS ORDERED: MEROPENEM 1 GM in SODIUM CHLORIDE 0.9% 100 ML IVPB SCH (16:00)
[2018-07-28] MEDS ORDERED: PHYTONADIONE ORAL 5 MG/5 ML ORAL.SYRG PO STA (17:41)
--- NOTE | 2018-07-28 17:41 | P.CONS ---
History of Present Illness - Reason for Consult Consult date: 07/28/18 Coagulopathy. Diverticular abscess - History of Present Illness The patient is a 58-year-old white female, with overall well controlled medical problems. The patient had developed abdominal pain, about 6 months prior to her admission here. This was described as crampy, and diffuse throughout the abdomen. Initially this was fairly mild and intermittent. However it progressively became more persistent and severe. She also noted decrease in appetite, and some slow progressive weight loss. Over the past week to 10 days, she had developed fairly persistent nausea and vomiting, with markedly decreased oral intake. She therefore went into her PCP, and worse sent in for treatment of dehydration and evaluation of her symptoms. She had a computed tomography scan of the abdomen and pelvis, as well as an abdominal x- ray. He was no evidence of any obstruction or ileus. On computed tomography scan she was noted to have a 4 cm diverticular abscess. She was therefore admitted to the hospital. Initial coags revealed increased INR of 2.2. The patient was not on any anticoagulation. She received oral vitamin K, 5 mg. INR improved to 1.4 today. The patient is now status post drain placement. Consult was placed for further evaluation and recommendations The patient denied any prior history suggestive of a bleeding or clotting disorder. She has had a hysterectomy, as well as dental extractions in the past in addition to 2 normal vaginal deliveries without any bleeding complications whatsoever. There is no family history of the same. Review of Systems Constitutional: Reports fatigue, Reports poor appetite, Reports weakness, Reports weight loss Eyes: denies blurred vision, denies pain Ears: deny: decreased hearing, ear discharge, earache, tinnitus Ears, nose, mouth and throat: Denies headache, Denies sore throat Cardiovascular: Reports decreased exercise tolerance Respiratory: Denies cough Gastrointestinal: Reports abdominal pain, Reports loss of appetite, Reports nausea, Reports vomiting Genitourinary: Denies dysuria, Denies hematuria Menstruation: Reports postmenopausal Musculoskeletal: Reports muscle weakness, Denies myalgias Integumentary: Denies pruritus, Denies rash Neurological: Denies numbness, Denies weakness Psychiatric: Denies anxiety, Denies depression Endocrine: Reports fatigue, Reports weight change Hematologic/Lymphatic: Reports as per HPI Past Medical History Past Medical History: No Reported History History of Any Multi-Drug Resistant Organisms: None Reported Past Surgical History: Hysterectomy, Orthopedic Surgery Past Psychological History: No Psychological Hx Reported Smoking Status: Never smoker Past Alcohol Use History: Occasional Past Drug Use History: None Reported - Past Family History Mother Family Medical History: Coronary Artery Disease (CAD), Diabetes Mellitus Father Family Medical History: Diabetes Mellitus Additional Family Medical History / Comment(s): parkinsons Medications and Allergies Home Medications Medication Instructions Recorded Confirmed Type Omeprazole 20 mg PO DAILY 07/26/18 07/27/18 History Sucralfate [Carafate] 1 gram PO TID 07/26/18 07/26/18 History Allergies Allergy/AdvReac Type Severity Reaction Status Date / Time No Known Allergies Allergy Verified 07/26/18 20:15 Physical Exam Vitals: Vital Signs Temp Pulse Pulse Pulse Resp BP BP 07/28/18 16:28 98.6 F 07/28/18 15:32 98.6 F 110 H 16 109/66 07/28/18 14:30 98.6 F 123 H 16 123/74 07/28/18 14:16 18 111/59 07/28/18 14:01 18 108/54 07/28/18 13:56 18 110/58 07/28/18 13:45 18 123/82 07/28/18 13:21 99.5 F 114 H 18 122/74 07/28/18 13:15 99.5 F 114 H 18 122/74 07/28/18 09:45 98.3 F 112 H 20 96/65 07/28/18 08:00 97.9 F 120 H 16 96/65 07/28/18 00:02 100.2 F H 103 H 18 111/70 07/27/18 22:30 100.4 F H 104 H 18 121/67 07/27/18 21:41 99.5 F 103 H 16 115/62 07/27/18 21:11 99.4 F 110 H 18 105/65 07/27/18 21:01 99.0 F 111 H 18 113/64 Pulse Ox 07/28/18 16:28 07/28/18 15:32 98 07/28/18 14:30 97 07/28/18 14:16 96 07/28/18 14:01 95 07/28/18 13:56 95 07/28/18 13:45 95 07/28/18 13:21 98 07/28/18 13:15 98 07/28/18 09:45 96 07/28/18 08:00 95 07/28/18 00:02 97 07/27/18 22:30 96 07/27/18 21:41 97 07/27/18 21:11 96 07/27/18 21:01 95 Intake and Output 07/28/18 07/28/18 07/28/18 06:59 14:59 22:59 Intake Total 10 10 Output Total 100 925 Balance -100 -915 10 Intake: Oral 10 10 Output: Urine 100 925 Other: Voiding Method Toilet Toilet Weight 52.163 kg - Constitutional General appearance: no acute distress - EENT Eyes: EOMI, PERRLA ENT: hearing grossly normal, normal oropharynx - Neck Neck: no lymphadenopathy Thyroid: bilateral: normal size - Respiratory Respiratory: bilateral: CTA - Cardiovascular Rhythm: regular Heart sounds: normal: S1, S2 - Gastrointestinal General gastrointestinal: normal bowel sounds Localized gastrointestinal: tender: LUQ, LLQ, guarding: LUQ, LLQ - Integumentary Integumentary: normal - Neurologic Neurologic: CNII-XII intact - Musculoskeletal Musculoskeletal: generalized weakness, strength equal bilaterally - Psychiatric Psychiatric: A&O x's 3, appropriate affect Results CBC & Chem 7: 07/28/18 06:21 07/28/18 06:21 Labs: Abnormal Lab Results - Last 24 Hours (Table) 07/28/18 07/28/18 Range/Units 06:21 06:21 PT 13.9 H (9.0-12.0) sec INR 1.4 H (<1.2) Fibrinogen 518 H (200-500) mg/dL Sodium 132 L (137-145) mmol/L Carbon Dioxide 21 L (22-30) mmol/L Total Bilirubin 1.4 H (0.2-1.3) mg/dL Total Protein 6.0 L (6.3-8.2) g/dL Albumin 2.9 L (3.5-5.0) g/dL Microbiology - Last 24 Hours (Table) 07/26/18 20:05 Urine Culture - Final Urine,Voided Abdominal x-ray: report reviewed CT scan - abdomen: report reviewed CT scan - pelvis: report reviewed Assessment and Plan (1) Coagulopathy Narrative/Plan: The consult was placed for a coagulopathy, which is apparently new. This corrected rapidly with 1 dose of oral vitamin K. The patient's history is totally not suggestive of any pre-existing, underlying coagulopathy. Therefore her current presentation is most likely due to vitamin K deficiency, from chronically decreased oral intake, and bowel inflammation. As the patient's oral intake is still reduced, and she is on antibiotics, there may be recurrence of this issue. I will give her an additional dose of oral vitamin K. I would recommend ongoing monitoring of her coags. If coagulopathy recurs, then IV vitamin K can be administered. Current Visit: Yes Status: Acute Code(s): D68.9 - COAGULATION DEFECT, UNSPECIFIED SNOMED Code(s): 55355208 (2) Colonic diverticular abscess Narrative/Plan: The patient is status post drain placement. Defer to the admitting service and surgery for ongoing management. The patient has never had a colonoscopy before , and will need evaluation, when stable Current Visit: Yes Status: Acute Code(s): K57.20 - DVTRCLI OF LG INT W PERFORATION AND ABSCESS W/O BLEEDING SNOMED Code(s): 719653723
[2018-07-28] MEDS ORDERED: ACETAMINOPHEN ORAL SUSP (PEDS) 3,840 MG/120 ML BOTTLE PO PRN (18:13)
--- NOTE | 2018-07-28 23:34 | CONS ---
CONSULTATION DATE OF SERVICE: 07/28/2018 REASON FOR CONSULTATION: Antibiotic recommendation. HISTORY OF PRESENT ILLNESS: The patient is a 58-year-old female who presented to [facility] on 07/26/2018 with chief complaints of abdominal pain that apparently has been going on and off for almost 6 months now. However, for the last few days, the pain has been becoming more severe. It is crampy in nature, mostly in the left lower abdominal area, feeling nauseated, vomiting and did not have, unable to keep anything down. The patient has been constipated as well. Did have some low-grade fever and chills. With these symptoms, the patient was evaluated by the ER physician. The patient did have a CT of abdomen and pelvis completed which did show evidence of a diverticulitis with peridiverticular abscess 4 cm in diameter. General surgery was consulted, who recommended CT-guided drainage as the patient was not go for surgery. The patient has been treated with Zosyn. This was switched over to meropenem this morning. Infectious Disease was consulted for further recommendation of antibiotic therapy. The patient categorically denied having been on any antibiotics over the last 6 months for the same condition. REVIEW OF SYSTEM: The pertinent findings have been mentioned in HPI. All other systems reviewed and negative. PAST MEDICAL HISTORY: Denies any major illnesses. PAST SURGICAL HISTORY: Hysterectomy. SOCIAL HISTORY: No history of smoking. Occasionally drinks. No drug use. FAMILY HISTORY: Mother history of coronary artery disease and diabetes. Father history of diabetes mellitus and Parkinson. MEDICATION: Medications include the patient is currently on meropenem 1 g q.8 hours, she is on Protonix, Zofran, Narcan, Toradol, Dilaudid and Tylenol. PHYSICAL EXAMINATION: Blood pressure is 95/56, pulse 122, temperature 99.1, T-max is 100.4, she is 94% on room air. General description is a middle aged female lying in bed in no distress. No tachypnea or accessory muscles for respiration use. HEENT: Shows no pallor or scleral icterus. The oral mucous membrane is moist with no pharyngeal erythema or thrush. Neck trachea is central. No thyromegaly. LUNGS: Unlabored breathing. Clear to auscultation anteriorly. No wheeze or crackles. Heart S1, S2. Regular rate and rhythm. ABDOMEN: Soft. Patient is tender in the left lower quadrant area. No guarding. No rigidity. No organomegaly. EXTREMITIES: No edema of the feet. Skin examination: No rash or mass palpable. Neurological: Patient is awake, alert, oriented x3. Mood and affect normal. LABS: Hemoglobin is 12.3, white count of 7.3, BUN of 8, creatinine 0.63. Electrolytes normal. Liver enzymes normal. Bilirubin is 1.4. CT abdomen and pelvis report as mentioned above. DIAGNOSTIC IMPRESSION AND PLAN: Patient admitted to the hospital with abdominal pain that has been almost for 6 months with recent worsening in this patient who did have evidence of acute sigmoid diverticulitis complicated with perforation and formation of a 4 cm diameter abscess. The likely organism need to cover will be enteric gram-negative both aerobes and anaerobes in this patient who has been not on antibiotics in the recent past, could be sensitive pathogen such as E coli or related jose. PLAN: 1. Discontinue the meropenem. 2. Status post CT guided drainage of this abscess. Culture has been sent for aerobic and anaerobic culture, will follow. 3. We will follow up on clinical condition and culture. 4. We will switch back to Zosyn 3.75 g q.8 hours. 5. We will follow up on clinical condition and culture to further adjust medication if needed. Thank you for this consultation. Will follow this patient along with you. MMODL / IJN: [id number] /
[2018-07-29] MEDS: SODIUM CHLORIDE 0.9% 1,000 ML IV SCH ×3 (01:50→21:53)
[2018-07-29] MEDS: KETOROLAC 30 MG/ML 1 ML VIAL IVP SCH ×2 (05:28→19:16)
[2018-07-29 06:36] LABS: HCT 34.3 % (34.0-46.0); HGB 11.1 gm/dL (11.4-16.0); MCH 29.1 pg (25.0-35.0); MCHC 32.4 g/dL (31.0-37.0); MCV 89.7 fL (80.0-100.0); Mean Platelet Volume 5.8; Platelet Count 315 k/uL (150-450); RBC 3.83 m/uL (3.80-5.40); RDW 13.2 % (11.5-15.5); WBC 7.9 k/uL (3.8-10.6)
[2018-07-29 06:53] LABS: INR 1.4 (<1.2); Prothrombin Time 13.9 sec (9.0-12.0)
[2018-07-29] MEDS: PANTOPRAZOLE 40 MG/10 ML VIAL IVP SCH (07:43)
[2018-07-29] MEDS: PIPERACILLIN-TAZOBACTAM 3.375 GM in SODIUM CHLORIDE 0.9% 100 ML IVPB SCH ×2 (07:44→19:16)
[2018-07-29 07:48] LABS: Albumin 2.2 g/dL (3.5-5.0); Carbon Dioxide 17 mmol/L (22-30)
[2018-07-29 07:51] LABS: ALT 19 U/L (9-52); AST 12 U/L (14-36); Alkaline Phosphatase 47 U/L (38-126); Anion Gap 11 mmol/L; Blood Urea Nitrogen 7 mg/dL (7-17); Calcium 8.2 mg/dL (8.4-10.2); Chloride 105 mmol/L (98-107); Glucose 95 mg/dL (74-99); Potassium 3.7 mmol/L (3.5-5.1); Sodium 133 mmol/L (137-145); Total Bilirubin 1.3 mg/dL (0.2-1.3)
[2018-07-29] MEDS ORDERED: SODIUM CHLORIDE 0.9% 1,000 ML IV ONE ×2 (09:42→13:00)
--- NOTE | 2018-07-29 11:53 | P.PN ---
Progress Note - Text Progress Note Date: 07/29/18 Patient's resting comfortably in bed. She had a CT-guided diverticular abscess drainage performed yesterday. She has some feculent purulent fluid in her drainage bag. On exam her vital signs are stable. Her abdomen soft. Status post CT-guided drainage of diverticular abscess. Patient receive IV antibiotic. She'll be reevaluated in the a.m.
[2018-07-29] MEDS ORDERED: SODIUM CHLORIDE 0.9% 1,000 ML BAG ONE (12:00)
[2018-07-29] MEDS ORDERED: KETOROLAC 30 MG/ML 1 ML VIAL ONE ×2 (12:00)
[2018-07-29] MEDS ORDERED: POLYETHYLENE GLYCOL 3350 17 GM POWD.PACK ONE (12:00)
--- NOTE | 2018-07-29 12:06 | P.PN ---
Subjective Progress Note Date: 07/29/18 The patient appears to be doing well on clear liquid diet no bowel movements this morning no gas or having good bowel sounds, had CT-guided drainage of diverticular abscess yesterday, and cultures are pending preliminary showing gram-negative bacilli. The patient continues to be tachycardic, denies any chest pain or shortness of breath. Does report moderate pain. Objective - Vital Signs Vital signs: Vital Signs Temp 98.1 F 07/29/18 07:45 Pulse 117 H 07/29/18 08:00 Resp 16 07/29/18 07:45 BP 107/70 07/29/18 07:45 Pulse Ox 96 07/29/18 07:45 Intake & Output 07/28/18 07/29/18 07/29/18 18:59 06:59 18:59 Intake Total 20 80 Output Total 925 450 Balance -905 -450 80 Weight 52.163 kg Intake: Oral 20 80 Output: Urine 925 450 Other: Voiding Method Toilet Toilet Toilet - Exam Constitutional: No acute distress, conversant, pleasant Eyes: Anicteric sclerae, moist conjunctiva, no lid-lag, PERRLA ENMT: NC/AT,Oropharynx clear, no erythema, exudates Neck:Supple, FROM, no masses, or JVD, No carotid bruits; No thyromegaly Lungs: Clear to auscultation, Clear to percussion, Normal respiratory effort, no accessory muscle use Cardiovascular: Tachycardic regular rhythm, No murmurs, gallops, or rubs no peripheral edema Abdominal: Soft tender to palpation in the left lower quadrant with drain in place, nonacute abdomen, Normoactive bowel sounds Skin: Normal temperature, tone, texture, turgor, No induration No subcutaneous nodules, No rash, lesions, No ulcers Extremities:No digital cyanosis No clubbing, Pedal pulses intact and symmetrical Radial pulses intact and symmetrical Normal gait and station, No calf tenderness Psychiatric: Alert and oriented to person, place and time, Appropriate affect Intact judgement Neuro: Muscles Strength 5/5 in all 4 extremities, Sensation to light touch grossly present throughout, Cranial nerves II-XII grossly intact. No focal sensory deficits - Labs CBC & Chem 7: 07/29/18 06:11 07/29/18 06:11 Labs: Abnormal Lab Results - Last 24 Hours (Table) 07/29/18 07/29/18 07/29/18 Range/Units 06:11 06:11 06:11 Hgb 11.1 L (11.4-16.0) gm/dL PT 13.9 H (9.0-12.0) sec INR 1.4 H (<1.2) Sodium 133 L (137-145) mmol/L Carbon Dioxide 17 L (22-30) mmol/L Calcium 8.2 L (8.4-10.2) mg/dL AST 12 L (14-36) U/L Total Protein 5.0 L (6.3-8.2) g/dL Albumin 2.2 L (3.5-5.0) g/dL Microbiology - Last 24 Hours (Table) 07/28/18 14:30 Gram Stain - Preliminary Cyst Body Fluid Culture - Preliminary Gram Neg Bacilli 07/28/18 14:30 Anaerobic Culture - Preliminary Abdomen 07/26/18 20:05 Urine Culture - Final Urine,Voided Assessment and Plan (1) Sepsis Narrative/Plan: * Secondary to diverticular abscess Urine culture no growth * Patient afebrile overnight without leukocytosis continues to be tachycardic, and blood pressure borderline * Repeat her 1 L normal saline bolus and continue her maintenance fluids to 100 mL per hour of normal saline * Continue on IV Zosyn per ID recommendations Current Visit: Yes Status: Acute Code(s): A41.9 - SEPSIS, UNSPECIFIED ORGANISM SNOMED Code(s): 81643978 (2) Colonic diverticular abscess Narrative/Plan: * 4 cm diverticular abscess in the left lower quadrant s/p as CT-guided drainage by IR * Continue antibiotics Zosyn * Cultures are pending preliminary indicating gram-negative bacilli Current Visit: Yes Status: Acute Code(s): K57.20 - DVTRCLI OF LG INT W PERFORATION AND ABSCESS W/O BLEEDING SNOMED Code(s): 623773490 (3) Partial bowel obstruction Narrative/Plan: * Appreciate general surgery recommendations * Continue clear liquid diet will plan to advance to regular diet Current Visit: Yes Status: Acute Code(s): K56.600 - PARTIAL INTESTINAL OBSTRUCTION, UNSPECIFIED TO CAUSE SNOMED Code(s): 70741073 (4) Abdominal pain Narrative/Plan: * Pain management per general surgery currently on Toradol and Dilaudid Current Visit: Yes Status: Acute Code(s): R10.9 - UNSPECIFIED ABDOMINAL PAIN SNOMED Code(s): 67577077 (5) Coagulopathy Current Visit: Yes Status: Acute Code(s): D68.9 - COAGULATION DEFECT, UNSPECIFIED SNOMED Code(s): 81707656 (6) Constipation Narrative/Plan: * Initiated on daily MiraLAX Current Visit: Yes Status: Acute Code(s): K59.00 - CONSTIPATION, UNSPECIFIED SNOMED Code(s): 86904651 Plan: Disposition * Anticipate discharge 1-2 days continue antibiotics awaiting wound cultures
[2018-07-29 12:30] LABS: Band Neutrophils % 18 %; Lymphocytes # (M) 1.34 k/uL (1.0-4.8); Neutrophils % (M) 60 %; Nucleated Red Blood Cells 0 /100 WBC (0-0); Total Cells Counted 100
[2018-07-29] MEDS: POLYETHYLENE GLYCOL 3350 17 GM POWD.PACK PO SCH (19:16)
[2018-07-30] MEDS: PIPERACILLIN-TAZOBACTAM 3.375 GM in SODIUM CHLORIDE 0.9% 100 ML IVPB SCH ×4 (00:13→23:23)
[2018-07-30] MEDS: KETOROLAC 30 MG/ML 1 ML VIAL IVP SCH ×2 (00:13→05:43)
[2018-07-30] MEDS: ONDANSETRON 4 MG/2 ML VIAL IVP PRN (04:01)
[2018-07-30] MEDS: HYDROmorphone 0.5 MG/0.5 ML SYRINGE IVP PRN ×3 (05:43→14:36)
[2018-07-30 06:29] LABS: HCT 41.8 % (34.0-46.0); MCH 28.2 pg (25.0-35.0); MCHC 31.1 g/dL (31.0-37.0); MCV 90.7 fL (80.0-100.0); Mean Platelet Volume 6.1; Platelet Count 347 k/uL (150-450); RBC 4.61 m/uL (3.80-5.40); RDW 13.5 % (11.5-15.5); WBC 2.5 k/uL (3.8-10.6)
[2018-07-30] MEDS: SODIUM CHLORIDE 0.9% 1,000 ML IV SCH ×3 (06:34→13:15)
[2018-07-30 06:52] LABS: INR 1.3 (<1.2); Prothrombin Time 13.1 sec (9.0-12.0)
--- NOTE | 2018-07-30 07:13 | PN ---
PROGRESS NOTE DATE OF SERVICE: 07/29/2018 REASON FOR FOLLOWUP: Abdominal abscess. INTERVAL HISTORY: The patient is currently afebrile. The patient did have some abdominal pain, though no worsening. The patient is status post CT-guided drainage of the abscess yesterday. However, currently no output in the drainage bag. The patient denies having any chest pain, shortness of breath or cough. No Diarrhea. PHYSICAL EXAMINATION: Blood pressure is 97/62 with a pulse of 121, temperature 98.5, she is 97% on room air. GENERAL DESCRIPTION: A middle aged female lying in bed in no distress. RESPIRATORY SYSTEM: Unlabored breathing, clear to auscultation anteriorly. HEART: S1, S2. Regular rate and rhythm. ABDOMEN: Soft, mildly tender. No guarding or rigidity. LABS: Hemoglobin is 11.1, white count 7.9, BUN of 7, creatinine 0.53. Abdominal cultures showed a gram-negative bacilli. DIAGNOSTIC IMPRESSION AND PLAN: Patient with an abdominal abscess from ruptured diverticulitis status post CT-guided drainage. Cultures with gram-negative. However, currently with no output in the drainage bag. She will continue on the Zosyn while waiting for the results of this pathogen and may need to repeat CT to make sure resolution of the abscess before transitioning her antibiotic therapy. Continue supportive care. MMODL / IJN: [id number] /
[2018-07-30 07:19] LABS: ALT 18 U/L (9-52); AST 12 U/L (14-36); Albumin 2.1 g/dL (3.5-5.0); Alkaline Phosphatase 61 U/L (38-126); Anion Gap 15 mmol/L; Blood Urea Nitrogen 9 mg/dL (7-17); Calcium 8.3 mg/dL (8.4-10.2); Carbon Dioxide 12 mmol/L (22-30); Chloride 108 mmol/L (98-107); Glucose 111 mg/dL (74-99); Potassium 3.5 mmol/L (3.5-5.1); Sodium 135 mmol/L (137-145); Total Bilirubin 1.2 mg/dL (0.2-1.3); Total Protein 4.8 g/dL (6.3-8.2)
[2018-07-30] MEDS ORDERED: SODIUM CHLORIDE 0.9% 1,000 ML IV ONE ×2 (07:45→08:46)
[2018-07-30] MEDS: PANTOPRAZOLE 40 MG/10 ML VIAL IVP SCH (08:27)
[2018-07-30] MEDS: POLYETHYLENE GLYCOL 3350 17 GM POWD.PACK PO SCH (08:54)
--- NOTE | 2018-07-30 09:22 | CT ---
EXAMINATION TYPE: CT abdomen pelvis w con DATE OF EXAM: 07/30/2018 COMPARISON: Prior CT 07/26/2018 HISTORY: Follow up diverticular abscess with drain. Pain, nausea CT DLP: 1174 mGycm Automated exposure control for dose reduction was used. TECHNIQUE: Helical acquisition of images from the lung bases through the pelvis have been completed. CONTRAST: Performed without Oral Contrast and with IV Contrast, patient injected with 100 mL of Isovue 300. FINDINGS: There has been interval development of a large amount of free air within the abdomen. Subcu taneous emphysema is extensive in the left lower quadrant at the site of patient's drainage catheter within the left lower quadrant. There are also present along the rectus musculature in the left lower quadrant. LUNG BASES: Small pleural effusions and associated atelectasis. AORTA: No significant abnormality is appreciated. LIVER/GB: No significant abnormality is appreciated. PANCREAS: No significant abnormality is seen. SPLEEN: No significant abnormality is seen. ADRENALS: No significant abnormality is seen. KIDNEYS: No significant abnormality is seen. REPRODUCTIVE ORGANS: Not seen BOWEL: Colonic wall thickening is diffuse similar to prior exam, colon is distended. FREE AIR: No Free Air visible. ASCITES: Free fluid is in the pelvis.. PELVIC ADENOPATHY: None visualized. RETROPERITONEAL ADENOPATHY: No Retroperitoneal Adenopathy visible. URINARY BLADDER: No significant abnormality is seen. OSSEOUS STRUCTURES: No significant abnormality is seen. IMPRESSION: PNEUMOPERITONEUM. SUBCUTANEOUS EMPHYSEMA AND ANASARCA CHANGES. THERE MAY BE UNDERLYING COLITIS. Addit ional findings above. Report relayed telephonically to the patient's nurse at the time of performance and interpretation of the exam.
--- NOTE | 2018-07-30 09:34 | P.PN ---
Subjective Progress Note Date: 07/30/18 Principal diagnosis: abdominal pain Patient is a 58-year-old female with no significant past medical history o who presented to the emergency department at the recommendations of her PCP for dehydration, nausea, and vomiting. In the emergency department she underwent an extensive evaluation. Computed tomography scan of the abdomen showed diverticular abscess with partial bowel obstruction she was admitted for further management. Initial laboratory analysis showed a sodium of 132, carbon dioxide 21, and a negative urinalysis. She was started on IV fluids, antibiotics and was admitted. General surgery was consulted. Patient initially wanted conservative management did not want surgery. Interventional radiology was consulted and she underwent abscess ranges placement of percutaneous drain on 07/28/18. She was found to have an elevated PTT and hematology was consulted. They felt that this was likely due to poor nutritional intake and ordered additional vitamin K. Her PT INR normalized with additional vitamin K. She was seen by ID who discontinue meropenem and started her on Zosyn. She had initially been progressing well. I was called to see patient due to change in status. Overnight on 07/29 she developed increasing pain and nausea. She started requiring IV narcotics for treatment of her pain. She then became tachycardic. Morning blood work on showed a depressed white blood cell count at 2.5, and carbon dioxide of 12. I immediately ordered a stat CT with IV contrast as well as a stat lactic acid and a 1 L fluid bolus. Patient seen and examined at bedside. She complains of pain in her abdomen that is the worst in her left lower quadrant. She is not having any nausea now but did have nausea overnight. She states that when you press anywhere in her abdomen the pain is centered below her percutaneous drain. Pain is worse when you press and better when you take it away. She denies any chest pain, shortness of breath, palpitations, lightheadedness, or dizziness. On my personal review of the CT it appears that there is free air in the abdomen. I called Dr. Jacobson and Dr. Jacobson is on his way to evaluate the patient. Objective - Vital Signs Vital signs: Vital Signs Temp 98.7 F 07/30/18 08:14 Pulse 140 H 07/30/18 08:14 Resp 18 07/30/18 08:14 BP 98/60 07/30/18 08:14 Pulse Ox 95 07/30/18 08:14 Intake & Output 07/29/18 07/30/18 07/30/18 18:59 06:59 18:59 Intake Total 80 Output Total 525 Balance 80 -525 Intake: Oral 80 Output: Urine 525 Other: Voiding Method Toilet Toilet - Exam General: ill appearing, moderate distress, appears at stated age Derm: pale, diaphoretic, + skin tenting warm, dry Head: atraumatic, normocephalic, symmetric Eyes: EOMI, no lid lag, anicteric sclera Mouth: no lip lesion, mucus membranes dry Cardiovascular: S1S2 reg, no murmur, positive posterior tibial pulse bilateral, Lungs: CTA bilateral, no rhonchi, no rales , no accessory muscle use Abdominal: soft, +tender to palpation diffusely, no guarding, no rebound tenderness, no appreciable organomegaly Ext: no gross muscle atrophy, no edema, no contractures Neuro: CN II-XI grossly intact, no focal neuro deficits Psych: Alert, oriented, appropriate affect - Labs CBC & Chem 7: 07/30/18 06:17 07/30/18 06:17 Labs: Abnormal Lab Results - Last 24 Hours (Table) 07/30/18 07/30/18 07/30/18 Range/Units 06:17 06:17 06:17 WBC 2.5 L (3.8-10.6) k/uL PT 13.1 H (9.0-12.0) sec INR 1.3 H (<1.2) Sodium 135 L (137-145) mmol/L Chloride 108 H (98-107) mmol/L Carbon Dioxide 12 L (22-30) mmol/L Glucose 111 H (74-99) mg/dL Calcium 8.3 L (8.4-10.2) mg/dL AST 12 L (14-36) U/L Total Protein 4.8 L (6.3-8.2) g/dL Albumin 2.1 L (3.5-5.0) g/dL Microbiology - Last 24 Hours (Table) 07/28/18 14:30 Gram Stain - Preliminary Cyst Body Fluid Culture - Preliminary Gram Neg Bacilli Assessment and Plan Assessment: Diverticulitis with abscess and now perforation and severe sepsis, partial bowel obstruction - 2L bolus now increase IVF to 150 cc/hr - transfer to ICU if unable to go directly to the OR - D/W Dr. Jacobson who is on his way into see the patient - Ana Rosa, ID recs - Awaiting lactic acid - stat blood cultures - strict NPO - Obtain 2 IV lines - Dr. Abena asif - Frequent vital signs, tele monitoring Anion Gap metabolic acidosis - await lactic acid, repeat CMP - IVF Hyponatremia, likely due to dehydration - improving - IVF - recheck in AM Constipation due to bowel obstruction - NPO - no additional laxatives at this time Coagulopathy, resolved DVT prophylaxis: SCDs, heparin in AM after surgery Anticipated discharge: 4-[address]: likely can go home with home health A total of 45 minutes of critical care time was spent with this complex patient
[2018-07-30 09:39] LABS: HCT 39.3 % (34.0-46.0); HGB 12.2 gm/dL (11.4-16.0); Hypochromasia Slight; MCHC 31.1 g/dL (31.0-37.0); MCV 93.1 fL (80.0-100.0); Mean Platelet Volume 6.6; Platelet Count 252 k/uL (150-450); RBC 4.22 m/uL (3.80-5.40); RDW 13.7 % (11.5-15.5); WBC 1.8 k/uL (3.8-10.6)
--- NOTE | 2018-07-30 09:46 | P.PN ---
Progress Note - Text Progress Note Date: 07/30/18 The patient developed acute pain this morning around 4 AM. She states her pain worsened after she got to the bathroom. This morning the nurses noted that her pulse was in the 130 range she underwent a stat CAT scan some of free air with pneumoperitoneum. CAT scan was reviewed Dr. Fleming. Patient is evidence of colitis and pneumoperitoneum. The patient will undergo emergent exploratory laparotomy with sigmoid resection and possible colostomy today.
[2018-07-30 09:50] LABS: ALT 19 U/L (9-52); AST 11 U/L (14-36); Albumin 1.7 g/dL (3.5-5.0); Alkaline Phosphatase 40 U/L (38-126); Anion Gap 8 mmol/L; Blood Urea Nitrogen 10 mg/dL (7-17); Calcium 7.5 mg/dL (8.4-10.2); Carbon Dioxide 13 mmol/L (22-30); Chloride 113 mmol/L (98-107); Glucose 95 mg/dL (74-99); Potassium 3.2 mmol/L (3.5-5.1); Sodium 134 mmol/L (137-145); Total Bilirubin 1.1 mg/dL (0.2-1.3); Total Protein 4.1 g/dL (6.3-8.2)
[2018-07-30] MEDS ORDERED: CALCIUM CHLORIDE 100 MG/ML 10 ML SYRINGE ONE (09:56)
[2018-07-30] MEDS ORDERED: PROPOFOL 10 MG/ML 20 ML VIAL IV ONE (09:56)
[2018-07-30] MEDS ORDERED: ROCURONIUM BROMIDE 10 MG/ML 10 ML VIAL IV ONE (09:56)
[2018-07-30] MEDS ORDERED: fentaNYL (PF) 50 MCG/ML 2 ML AMP ONE (09:56)
[2018-07-30] MEDS ORDERED: MIDAZOLAM 2 MG/2 ML VIAL ONE (09:56)
[2018-07-30] MEDS ORDERED: HEPARIN SODIUM,PORCINE 5,000 UNIT/ML 1 ML VIAL ONE (09:56)
[2018-07-30] MEDS ORDERED: SUCCINYLCHOLINE CHLORIDE 100 MG/5 ML SYR IV ONE (09:56)
[2018-07-30] MEDS ORDERED: PHENYLEPHRINE-0.9% NACL SYG 1 MG/10 ML SYRINGE ONE (09:56)
[2018-07-30] MEDS ORDERED: LIDOCAINE 1% INJ 10MG/ML (20 ML MDV) ONE (09:56)
[2018-07-30] MEDS ORDERED: IV FLUID CONTINUATION 700 ML IV ONE (10:00)
[2018-07-30] MEDS ORDERED: IV FLUID CONTINUATION 1,000 ML IV ONE (10:00)
[2018-07-30] MEDS ORDERED: NOREPINEPHRINE 4 MG in SODIUM CHLORIDE 0.9% 250 ML IV ONE (11:30)
[2018-07-30 11:59] LABS: Band Neutrophils % 19 %; Metamyelocytes # (M) 0.13 k/uL (0); Metamyelocytes % 5 %; Monocytes # (M) 0.08 k/uL (0-1.0); Neutrophils % (M) 55 %; Nucleated Red Blood Cells 0 /100 WBC (0-0); Total Cells Counted 200
[2018-07-30 12:00] LABS: Poikilocytosis (M) Present; Toxic Granulation Present
[2018-07-30] MEDS ORDERED: LACTATED RINGERS 1,000 ML IV ONE ×2 (12:08→12:09)
[2018-07-30 12:20] LABS: Band Neutrophils % 22 %; Metamyelocytes # (M) 0.07 k/uL (0); Metamyelocytes % 4 %; Monocytes # (M) 0.18 k/uL (0-1.0); Myelocytes # (M) 0.04 k/uL (0); Myelocytes % 2 %; Neutrophils % (M) 34 %; Nucleated Red Blood Cells 0 /100 WBC (0-0); Total Cells Counted 100; Toxic Granulation Present; Toxic Vacuolation Present
[2018-07-30 12:21] LABS: Poikilocytosis (M) Present
[2018-07-30 13:08] LABS: Glucose,Whole Blood 122 mg/dL (75-99)
[2018-07-30] MEDS: PROPOFOL 1,000 MG in EMPTY BAG 1 BAG IV SCH ×2 (13:15→22:26)
--- NOTE | 2018-07-30 13:29 | XR ---
EXAMINATION TYPE: XR chest 1V portable DATE OF EXAM: 07/30/2018 COMPARISON: NONE HISTORY: Intubated, central venous catheter placement TECHNIQUE: Single frontal view of the chest is obtained. FINDINGS: Endotracheal tube is selectively intubated in the right mainstem bronchus. Orogastric tube shows the side port cephalad to the level of the hemidiaphragm. Left subclavian central venous geovani ter is present, distal tip is in the right atrium. There is no pneumothorax or pleural effusion. Loly ent is rotated. Lung volumes are low. Heart size within normal limits. There are cardiac leads. Patch y bibasilar atelectatic changes are present. IMPRESSION: Central venous catheter, endotracheal tube and orogastric tube as described. Rotated exp iratory exam.
[2018-07-30 13:53] LABS: ABG Base Excess -15.3 mmol/L; ABG HCO3 13 mmol/L (21-25); ABG PCO2 34 mmHg (35-45); ABG PO2 205 mmHg (83-108); ABG TCO2 14 mmol/L (19-24)
[2018-07-30 13:57] LABS: ABG PH 7.19 (7.35-7.45)
[2018-07-30] MEDS ORDERED: SODIUM BICARB 8.4% 50 ML SYR (1 MEQ/ML) IV ONE ×2 (14:17→14:30)
[2018-07-30] MEDS ORDERED: SODIUM BICARB 8.4% 50 ML SYR (1 MEQ/ML) ONE ×2 (14:18)
--- NOTE | 2018-07-30 14:28 | XR ---
EXAMINATION TYPE: XR chest 1V portable DATE OF EXAM: 07/30/2018 COMPARISON: Prior chest x-ray 07/30/2018 and earlier time HISTORY: OG tube reposition TECHNIQUE: Single frontal view of the chest is obtained. FINDINGS: There is been interval repositioning of the orogastric tube which is now within the stomac h. There are likely basilar atelectatic changes. No other interval change. IMPRESSION: Orogastric tube reposition.
--- NOTE | 2018-07-30 14:58 | P.CNPUL ---
History of Present Illness Consult date: 07/30/18 Requesting physician: Rohit Jacobson Reason for consult: other (Intensive care unit management, patient had abdominal sepsis) Chief complaint: Abdominal pain History of present illness: This is a 58-year-old female, admitted through the emergency room on 07/26/2018, mostly admitted with abdominal pain. Patient has chronic abdominal pain for the last 6 months. She had frequent episodes of nausea and vomiting, unable to keep any fluids or food down. Apparently on presentation to the ER, patient was noted to have generalized weakness, dehydration. Prior to presentation to the ER, patient saw her primary care physician, and she was told that her blood flecked that the dehydration. Patient had a CT of the abdomen on admission, and she was found to have a 4 cm diverticular abscess with partial bowel obstruction. Patient was admitted, started on antibiotics as per infectious diseases/Zosyn. She was also seen by general surgery on consultation for abdominal pain, apparently various options of treatment were discussed with the patient including surgery/colostomy, and the option of drainage of abscess by interventional radiology was also discussed with the patient. Her initial pro time and INR was elevated, INR was 2.2. Patient did receive vitamin K. This was recommended by hematology/oncology on the case. Patient underwent CT- guided diverticular abscess drainage on 07/28/2018. And there was clearly some fecal/purulent fluid noted in the drainage bag. Patient remained on antibiotics as per infectious disease. However early this a.m. around 4 AM, patient had severe worsening of her abdominal pain. She also had sinus tachycardia, and was not feeling well. CT of the abdomen showed free air with pneumoperitoneum. Hence the patient was seen by Dr. Jacobson again, and she underwent emergent exploratory laparotomy with sigmoid resection and colostomy. Postoperatively patient was sent to the ICU on mechanical ventilation. She is presently on a tidal volume of 350, assist control rate of 20, and she is on a PEEP of 5 FiO2 of 100% initially which I cut down to 50%. Initial ABG shortly after she arrived to the ICU showed a pO2 of 205 pCO2 of 34 pH of 7.19. Hence I recommended labs and bicarb, and recommended a sodium bicarb drip. Patient was also noted to have leukopenia with WBC count of 1.8. Hemoglobin 12.2. Low potassium of 3.2. Lactic acid earlier this morning was 2.6. In the OR, patient received about 3 L of IV fluids, her main IV fluid at present is running at 1 50 mL per hour, and she is sedated, on mechanical ventilation, in no distress. She is hemodynamically stable at present. Review of Systems ROS unobtainable: due to endotracheal tube Past Medical History Past Medical History: No Reported History History of Any Multi-Drug Resistant Organisms: None Reported Past Surgical History: Hysterectomy, Orthopedic Surgery Past Psychological History: No Psychological Hx Reported Smoking Status: Never smoker Past Alcohol Use History: Occasional Past Drug Use History: None Reported - Past Family History Mother Family Medical History: Coronary Artery Disease (CAD), Diabetes Mellitus Father Family Medical History: Diabetes Mellitus Additional Family Medical History / Comment(s): parkinsons Medications and Allergies Home Medications Medication Instructions Recorded Confirmed Type Omeprazole 20 mg PO DAILY 07/26/18 07/27/18 History Sucralfate [Carafate] 1 gram PO TID 07/26/18 07/26/18 History Allergies Allergy/AdvReac Type Severity Reaction Status Date / Time No Known Allergies Allergy Verified 07/26/18 20:15 Physical Exam Vitals: Vital Signs Temp Pulse Pulse Pulse Pulse Resp BP 07/30/18 14:15 142 H 32 H 140/78 07/30/18 14:00 134 H 24 121/89 07/30/18 13:45 142 H 23 121/89 07/30/18 13:27 22 07/30/18 13:21 146 H 18 133/79 07/30/18 13:11 97.8 F 144 H 13 07/30/18 09:13 97.3 F L 144 H 28 H 07/30/18 08:14 98.7 F 140 H 18 07/30/18 07:56 140 H 07/30/18 03:50 97.8 F 100 22 07/30/18 00:12 98.2 F 110 H 16 07/29/18 20:20 98.5 F 121 H 18 BP BP Pulse Ox 07/30/18 14:15 95 07/30/18 14:00 98 07/30/18 13:45 98 07/30/18 13:27 07/30/18 13:21 98 07/30/18 13:11 133/79 173/70 07/30/18 09:13 92/61 94 L 07/30/18 08:14 98/60 95 07/30/18 07:56 07/30/18 03:50 98/58 07/30/18 00:12 115/72 98 07/29/18 20:20 97/62 97 Intake and Output 07/29/18 07/30/18 07/30/18 22:59 06:59 14:59 Intake Total 4900 Output Total 150 375 620 Balance -150 -375 4280 Intake: IV 3700 Intake, IV Titration 1200 Amount Lactated Ringers 1,000 ml 900 @ 0 mls/hr IV .[facility] Rx#:[id number] Sodium Chloride 0.9% 1, 300 000 ml @ 150 mls/hr IV . Q6H40M [facility] Rx#:[id number] Output: Urine 150 375 520 Estimated Blood Loss 100 Other: Voiding Method Toilet Toilet ABP, PAP, CO, CI - Last 8 Hours Arterial Blood Pressure 149/64 Arterial Blood Pressure 123/59 Arterial Blood Pressure 146/68 Arterial Blood Pressure 162/70 GENERAL: Physical exam revealed a 58-year-old female on mechanical ventilation, sedated, presently on propofol, and she is receiving pain medication. In no distress. Endotracheal tube is intact.. HEENT: PERRLA, EOMI, no icterus, moist mucous membranes, endotracheal tube and orogastric tube were noted. No JVD, no carotid bruits.. Head: Normocephalic, atraumatic. NECK: Supple without lymphadenopathy. CHEST: Symmetrical chest expansion, no crackles nor rhonchi no wheezes, no chest wall tenderness. CARDIOVASCULAR: Normal S1 and S2, no S3 gallop, no murmur.. ABDOMEN: Postsurgical, soft, nontender, left lower quadrant colostomy bag is noted. MUSCULOSKELETAL: Cannot be assessed, patient is fully sedated on mechanical ventilation. NEUROLOGIC: Cannot be assessed, fully sedated, on mechanical ventilation. Patient just came back from the operating room. PSYCH: Not be assessed for. SKIN: No skin rashes noted. No cyanosis. Results - Laboratory Findings CBC and BMP: 07/30/18 09:24 07/30/18 09:24 ABG ABG pH 7.19 (7.35-7.45) L* 07/30/18 13:46 ABG pCO2 34 mmHg (35-45) L 07/30/18 13:46 ABG pO2 205 mmHg (83-108) H 07/30/18 13:46 ABG O2 Saturation 99.0 % (94-97) H 07/30/18 13:46 PT/INR, D-dimer PT 13.1 sec (9.0-12.0) H 07/30/18 06:17 INR 1.3 (<1.2) H 07/30/18 06:17 Abnormal lab findings: Abnormal Labs 07/26/18 07/26/18 07/27/18 18:40 20:05 13:01 WBC Hgb Neutrophils # (Manual) Lymphocytes # (Manual) Metamyelocytes # (Man) Myelocytes # (Manual) PT 21.6 H INR 2.2 H Fibrinogen ABG pH ABG pCO2 ABG pO2 ABG HCO3 ABG Total CO2 ABG O2 Saturation Sodium 132 L Potassium Chloride 94 L Carbon Dioxide 21 L Glucose 108 H POC Glucose (mg/dL) Plasma Lactic Acid Cali Calcium Total Bilirubin AST Total Protein Albumin Urine Appearance Cloudy H Urine Protein 1+ H Urine Ketones 3+ H Urine Bilirubin 1+ H Ur Leukocyte Esterase Small H Urine WBC 16 H Ur Squamous Epith Cells 25 H Amorphous Sediment Occasional H Urine Mucus Many H 07/27/18 07/28/18 07/28/18 15:26 06:21 06:21 WBC Hgb Neutrophils # (Manual) Lymphocytes # (Manual) Metamyelocytes # (Man) Myelocytes # (Manual) PT 22.2 H 13.9 H INR 2.3 H 1.4 H Fibrinogen 518 H ABG pH ABG pCO2 ABG pO2 ABG HCO3 ABG Total CO2 ABG O2 Saturation Sodium 132 L Potassium Chloride Carbon Dioxide 21 L Glucose POC Glucose (mg/dL) Plasma Lactic Acid Cali Calcium Total Bilirubin 1.4 H AST Total Protein 6.0 L Albumin 2.9 L Urine Appearance Urine Protein Urine Ketones Urine Bilirubin Ur Leukocyte Esterase Urine WBC Ur Squamous Epith Cells Amorphous Sediment Urine Mucus 07/29/18 07/29/18 07/29/18 06:11 06:11 06:11 WBC Hgb 11.1 L Neutrophils # (Manual) Lymphocytes # (Manual) Metamyelocytes # (Man) Myelocytes # (Manual) PT 13.9 H INR 1.4 H Fibrinogen ABG pH ABG pCO2 ABG pO2 ABG HCO3 ABG Total CO2 ABG O2 Saturation Sodium 133 L Potassium Chloride Carbon Dioxide 17 L Glucose POC Glucose (mg/dL) Plasma Lactic Acid Cali Calcium 8.2 L Total Bilirubin AST 12 L Total Protein 5.0 L Albumin 2.2 L Urine Appearance Urine Protein Urine Ketones Urine Bilirubin Ur Leukocyte Esterase Urine WBC Ur Squamous Epith Cells Amorphous Sediment Urine Mucus 07/30/18 07/30/18 07/30/18 06:17 06:17 06:17 WBC 2.5 L Hgb Neutrophils # (Manual) Lymphocytes # (Manual) 0.50 L Metamyelocytes # (Man) 0.13 H Myelocytes # (Manual) PT 13.1 H INR 1.3 H Fibrinogen ABG pH ABG pCO2 ABG pO2 ABG HCO3 ABG Total CO2 ABG O2 Saturation Sodium 135 L Potassium Chloride 108 H Carbon Dioxide 12 L Glucose 111 H POC Glucose (mg/dL) Plasma Lactic Acid Cali Calcium 8.3 L Total Bilirubin AST 12 L Total Protein 4.8 L Albumin 2.1 L Urine Appearance Urine Protein Urine Ketones Urine Bilirubin Ur Leukocyte Esterase Urine WBC Ur Squamous Epith Cells Amorphous Sediment Urine Mucus 07/30/18 07/30/18 07/30/18 08:20 09:24 09:24 WBC 1.8 L Hgb Neutrophils # (Manual) 1.00 L Lymphocytes # (Manual) 0.50 L Metamyelocytes # (Man) 0.07 H Myelocytes # (Manual) 0.04 H PT INR Fibrinogen ABG pH ABG pCO2 ABG pO2 ABG HCO3 ABG Total CO2 ABG O2 Saturation Sodium 134 L Potassium 3.2 L Chloride 113 H Carbon Dioxide 13 L Glucose POC Glucose (mg/dL) Plasma Lactic Acid Cali 2.6 H* Calcium 7.5 L Total Bilirubin AST 11 L Total Protein 4.1 L Albumin 1.7 L Urine Appearance Urine Protein Urine Ketones Urine Bilirubin Ur Leukocyte Esterase Urine WBC Ur Squamous Epith Cells Amorphous Sediment Urine Mucus 07/30/18 07/30/18 13:05 13:46 WBC Hgb Neutrophils # (Manual) Lymphocytes # (Manual) Metamyelocytes # (Man) Myelocytes # (Manual) PT INR Fibrinogen ABG pH 7.19 L* ABG pCO2 34 L ABG pO2 205 H ABG HCO3 13 L ABG Total CO2 14 L ABG O2 Saturation 99.0 H Sodium Potassium Chloride Carbon Dioxide Glucose POC Glucose (mg/dL) 122 H Plasma Lactic Acid Cali Calcium Total Bilirubin AST Total Protein Albumin Urine Appearance Urine Protein Urine Ketones Urine Bilirubin Ur Leukocyte Esterase Urine WBC Ur Squamous Epith Cells Amorphous Sediment Urine Mucus - Diagnostic Findings Chest x-ray: image reviewed (Chest x-ray showed no evidence of infiltrate, there is a left basilar atelectasis. Endotracheal tube is in proper position, nasogastric tube is in the proper position, and left subclavian central line is in the proper position.) Assessment and Plan Assessment: Impression: 1 acute abdominal sepsis secondary to diverticular abscess rupture requiring exploratory laparotomy and sigmoid colostomy postoperative day #0. Continue antibiotics as per infectious disease. 2 acute hypoxic respiratory failure secondary to abdominal sepsis, no evidence of septic shock at this point. Patient is presently on mechanical ventilation, she remained on mechanical ventilation postoperatively, considering her ABG, she is clearly not ready to be weaned or extubated at this point yet. Hence she will be kept on mechanical ventilation tonight, and we will address her severe metabolic acidosis with sodium bicarbonate drip. 3 acute anion gap metabolic acidosis secondary to abdominal sepsis. 4 history of chronic abdominal pain for the last 6 months. 5 leukopenia secondary to abdominal sepsis, WBC count today was 1.8 Recommendation: Continue ventilatory support, continue GI and DVT prophylaxis, continue antibiotics for abdominal sepsis, patient is presently on Zosyn, and the infectious disease specialist on the case will be notified about her condition, may or may not consider broadening the spectrum of antibiotics at present. No plans to wean or extubated today, patient has lines already in place including a left subclavian central line, and she has a arterial catheter in place. I did recommend placing the patient on sodium bicarb drip, repeat ABG will be done this evening, and ventilator settings and sodium bicarb will be adjusted accordingly. We'll continue to follow. RTC the patient is critically ill, we'll continue to follow in the ICU. Time with Patient: Greater than 30
[2018-07-30] MEDS ORDERED: ARTIFICIAL TEARS OINTMENT 3.5 GM TUBE BOTH EYES PRN (15:16)
[2018-07-30] MEDS ORDERED: HYDROmorphone 1 MG/ML 1 ML SYRINGE IVP PRN (15:19)
[2018-07-30] MEDS ORDERED: HYDROmorphone 0.5 MG/0.5 ML SYRINGE IVP PRN (15:20)
[2018-07-30] MEDS ORDERED: INSULIN ASPART (NovoLOG) 100 UNIT/ML VIAL SQ SCH (15:30)
--- NOTE | 2018-07-30 15:39 | P.OP ---
Date of Procedure: 07/30/18 Preoperative Diagnosis: Perforated viscus Postoperative Diagnosis: Perforated sigmoid colon with fecal peritonitis Small bowel obstruction Procedure(s) Performed: Sigmoid colectomy with end colostomy Takedown of splenic flexure Small bowel resection 2 Appendectomy Anesthesia: TYRON Surgeon: Rohit Jacobson Estimated Blood Loss (ml): 100 Pathology: other (Sigmoid colon mass) Condition: critical Description of Procedure: The patient's placed on the operative table in the supine position. She received general anesthesia. Her radiologic drain was cut and removed. There was stool leaking out around the drain. The abdomen was prepped and draped usual sterile fashion. The abdomen was entered through midline incision. Upon entering the midline there was a large buchanan of air. There was obvious fecal peritonitis of the perineal cavity. The Bookwalter retractors placed a wound. The cecum right colon and transverse colon appeared to be dilated. The small bowel appeared to be dilated. There was a phlegmonous mass in the left lower quadrant related to the sigmoid colon. The mass contained the appendix and 2 loops of small bowel. The mass was very hard and appeared to be chronically inflamed. The bowel perforation appeared to be at the level sigmoid colon. The mass was dissected off the lateral pelvic wall. And then using the GABBY stapler the proximal colon was transected and then using the GI stapler the rectum was transected. The small bowel could not be dissected off the mass. The small bowel loops were transected with a GI stapler. And then the appendix was transected as well. The appendix was caught up into the mass as well. At this point the small bowel was examined. There appeared to be a Meckel's diverticulum just proximal to the staple transection line. The mesentery the bowel was divided. And then the small bowel was transected again. The specimen sent to pathology. The sigmoid colon mesentery was divided with the Enseal device and sent to pathology. A [id number] functional end-to-end staple anastomosis created between the areas of the 2 small bowel resections. A 3-0 GI silk suture was used as a crotch stitch. The splenic flexure was then taken down with the Enseal device. And then the left colon was mobilized. The white line of Toldt was divided. There was adequate length for colostomy. The abdomen was irrigated with 5 L of normal saline. A suitable spot for classic brought the left upper quadrant. The fascia closed with looped #1 PDS suture. The wound was packed open and packed with wet-to-dry Kerlix. The colostomy was then matured with 3-0 Vicryl suture. The a she was sent to the ICU intubated in critical condition.
[2018-07-30] MEDS: DEXTROSE 5% IN WATER 1,000 ML with SODIUM BICARB (1 MEQ/ML) 150 ML IV SCH (15:41)
[2018-07-30] MEDS: NOREPINEPHRINE 16 MG in SODIUM CHLORIDE 0.9% 250 ML IV SCH (15:43)
[2018-07-30] MEDS ORDERED: ARTIFICIAL TEARS-HYPROMELLOSE DROPS 15 ML BTL BOTH EYES PRN (15:48)
[2018-07-30 16:20] LABS: ABG Base Excess -11.4 mmol/L; ABG HCO3 16 mmol/L (21-25); ABG PCO2 38 mmHg (35-45); ABG PH 7.24 (7.35-7.45); ABG PO2 103 mmHg (83-108); ABG TCO2 17 mmol/L (19-24)
[2018-07-30 17:04] LABS: Appearance,Urine Cloudy (Clear); Bacteria,Urine Rare /hpf; Bilirubin,Urine 1+ (Negative); Blood,Urine Small (Negative); Color,Urine Dark Yellow; Glucose,Urine (UA) Negative (Negative); Granular Casts,Urine 8 /lpf (0); Ketones,Urine 1+ (Negative); Leukocyte Esterase,Urine Negative (Negative); Mucus,Urine Rare /hpf; Nitrite,Urine Negative (Negative); Protein,Urine 1+ (Negative); RBC,Urine 4 /hpf (0-5)
[2018-07-30 17:37] LABS: Specific Gravity,Urine >1.050 (1.001-1.035)
[2018-07-30] MEDS: SODIUM CHLORIDE 0.9% 99 ML with VASOPRESSIN 20 UNIT IV SCH ×2 (17:40)
--- NOTE | 2018-07-30 18:07 | XR ---
EXAMINATION TYPE: XR chest 1V portable DATE OF EXAM: 07/30/2018 COMPARISON: Prior chest x-ray same dated earlier time HISTORY: Endotracheal tube repositioning TECHNIQUE: Single frontal view of the chest is obtained. FINDINGS: Endotracheal tube has been withdrawn and is overlying appropriate position. Orogastric tub e has been withdrawn and is in the midthoracic esophagus. No other interval change. IMPRESSION: Interval tube reposition as described.
[2018-07-30] MEDS ORDERED: fentaNYL (PF) 50 MCG/ML 2 ML AMP IVP PRN (18:25)
[2018-07-30 23:17] LABS: Glucose,Whole Blood 175 mg/dL (75-99)
[2018-07-30] MEDS: INSULIN ASPART (NovoLOG) 100 UNIT/ML VIAL SQ SCH (23:22)
--- NOTE | 2018-07-30 23:31 | PN ---
PROGRESS NOTE DATE OF SERVICE: 07/30/2018. REASON FOR FOLLOWUP: Abdominal sepsis. INTERVAL HISTORY: The patient did have a repeat CT of the abdomen and pelvis completed this morning with pneumoperitoneum and supportive emphysema. The patient subsequently has been evaluated by General Surgery. She was taken to the OR. The patient is status post laparotomy with sigmoid colectomy and end-colostomy takedown of splenic flexure and small-bowel resection x2 along with appendectomy. The patient subsequently has been admitted to the ICU, currently intubated on the vent, has been afebrile. Blood pressure currently not requiring any pressor support. Heart rate has been stable. The patient seems to be awake and following some conversation between herself and her family members. PHYSICAL EXAMINATION: Blood pressure 150/65 with a pulse of 160, temperature 97.5. She is 98% on 50% FiO2. GENERAL DESCRIPTION: An middle aged female lying in bed in no distress. HEENT: Slight pallor. No scleral icterus. The patient is orally intubated. LUNGS: Unlabored breathing with decreased breath sounds in the bases. HEART: Regular rate and rhythm. ABDOMEN: Mildly distended. Mild rigidity. LABS: Hemoglobin 12.1, white count 1.8. BUN of 10, creatinine 0.6, 2.6. DIAGNOSTIC IMPRESSION AND PLAN: Patient with abdominal sepsis from ruptured diverticulitis with significant inflammation, status post extensive surgery. Initial CT-guided culture with and E coli. The patient is currently covered with Zosyn, should be no need for any antifungal coverage at this point. Continue to discuss with medical team. Will monitor patient closely. Continue supportive care. MMODL / IJN: [id number] /
[2018-07-31] MEDS: SODIUM CHLORIDE 0.9% 99 ML with VASOPRESSIN 20 UNIT IV SCH ×2 (01:57)
[2018-07-31 02:54] LABS: HCT 32.4 % (34.0-46.0); HGB 10.5 gm/dL (11.4-16.0); MCH 28.9 pg (25.0-35.0); MCHC 32.5 g/dL (31.0-37.0); MCV 88.9 fL (80.0-100.0); Mean Platelet Volume 6.9; RBC 3.64 m/uL (3.80-5.40); RDW 14.1 % (11.5-15.5)
[2018-07-31 03:02] LABS: INR 1.3 (<1.2); Partial Thromboplastin Time 34.2 sec (22.0-30.0); Prothrombin Time 13.1 sec (9.0-12.0)
[2018-07-31 03:12] LABS: Anion Gap 4 mmol/L; Blood Urea Nitrogen 10 mg/dL (7-17); Calcium 6.7 mg/dL (8.4-10.2); Carbon Dioxide 19 mmol/L (22-30); Chloride 113 mmol/L (98-107); Glucose 165 mg/dL (74-99); Magnesium 1.2 mg/dL (1.6-2.3); Phosphorus 2.5 mg/dL (2.5-4.5); Sodium 136 mmol/L (137-145)
[2018-07-31 03:19] LABS: Band Neutrophils % 55 %; Lymphocytes # (M) 0.84 k/uL (1.0-4.8); Metamyelocytes # (M) 0.54 k/uL (0); Metamyelocytes % 9 %; Monocytes # (M) 0.36 k/uL (0-1.0); Myelocytes # (M) 0.06 k/uL (0); Myelocytes % 1 %; Neutrophils % (M) 16 %; Nucleated Red Blood Cells 0 /100 WBC (0-0); Total Cells Counted 200
[2018-07-31 03:21] LABS: Platelet Count 109 k/uL (150-450); Toxic Granulation Present; Toxic Vacuolation Present
[2018-07-31 03:43] LABS: Potassium 2.5 mmol/L (3.5-5.1)
[2018-07-31] MEDS ORDERED: Potassium Replacement Protocol 1 EACH MISC MISCELLANE PRN (03:43)
[2018-07-31] MEDS ORDERED: Magnesium Replacement Protocol 1 EACH MISC MISCELLANE PRN (03:45)
[2018-07-31 04:36] LABS: ABG Base Excess -3.9 mmol/L; ABG HCO3 21 mmol/L (21-25); ABG Oxygen Saturation 99.2 % (94-97); ABG PCO2 33 mmHg (35-45); ABG PH 7.41 (7.35-7.45); ABG PO2 126 mmHg (83-108); ABG TCO2 22 mmol/L (19-24)
[2018-07-31] MEDS: MAGNESIUM SULFATE-D5W PMX 1 GM in DEXTROSE/WATER 1 100ML.BAG IVPB SCH ×2 (04:51→05:44)
[2018-07-31] MEDS: POTASSIUM CHLORIDE IVPB SCH ×4 (04:52→11:03)
[2018-07-31] MEDS: NOREPINEPHRINE 16 MG in SODIUM CHLORIDE 0.9% 250 ML IV SCH (05:02)
[2018-07-31] MEDS: SODIUM CHLORIDE 0.9% 1,000 ML IV SCH ×4 (05:12→16:17)
[2018-07-31] MEDS: DEXTROSE 5% IN WATER 1,000 ML with SODIUM BICARB (1 MEQ/ML) 150 ML IV SCH (05:42)
[2018-07-31] MEDS: INSULIN ASPART (NovoLOG) 100 UNIT/ML VIAL SQ SCH ×3 (05:56→18:50)
[2018-07-31] MEDS: PROPOFOL 1,000 MG in EMPTY BAG 1 BAG IV SCH (05:57)
[2018-07-31 06:22] LABS: Glucose,Whole Blood 190 mg/dL (75-99)
--- NOTE | 2018-07-31 07:08 | XR ---
EXAMINATION TYPE: XR chest 1V portable DATE OF EXAM: 07/31/2018 COMPARISON: 07/30/2018 HISTORY: SOB, Follow Up FINDINGS: Indwelling tubes and catheters are unchanged. No change in bibasilar opacities. Stable appearance of the cardio-mediastinal structures at this time. Pleural effusion unchanged. IMPRESSION: 1. Stable portable chest. Clinical correlation and follow up until resolution is recommended.
[2018-07-31] MEDS: PIPERACILLIN-TAZOBACTAM 3.375 GM in SODIUM CHLORIDE 0.9% 100 ML IVPB SCH ×2 (08:57→16:16)
[2018-07-31] MEDS: PANTOPRAZOLE 40 MG/10 ML VIAL IVP SCH (08:58)
[2018-07-31] MEDS: SODIUM CHLORIDE 0.45% 1,000 ML IV SCH ×2 (09:06→15:56)
[2018-07-31] MEDS ORDERED: CHLORHEXIDINE GLUCONATE 15 ML CUP MUCOUS MEM SCH (09:15)
--- NOTE | 2018-07-31 10:29 | PN ---
PROGRESS NOTE This is a 58-year-old female who was admitted on the for abdominal pain. She was discovered subsequently to have a small bowel obstruction. The patient underwent an exploratory laparotomy on July 30 and ended up with a sigmoid colectomy and colostomy and appendectomy. She apparently had acute abdominal sepsis secondary to a diverticular abscess. She is postop day #1. She was seen by my partner yesterday. The patient also has acute hypoxemic respiratory failure secondary to abdominal sepsis without septic shock. The patient remains on the ventilator. In addition, the patient has a history of acute anion gap metabolic acidosis, chronic abdominal pain for the last 6 months, and leukopenia secondary to sepsis. In addition, she appears not to have much in the way of chronic medical disease as she was only on omeprazole and Carafate as an outpatient. Currently, she remains on the ventilator. Her abdominal wound has been closed. The muscular layer has been closed. The subcutaneous tissues are open. She is draining some material from the subcutaneous tissues. The patient is on the volume assist- control mode rate of 20, tidal volume 350, FiO2 of 40%, PEEP of 5. Blood gases show a PaO2 of 126, a pCO2 of 33, and a pH of 7.4. The patient is on saline IV at 150 hour, sodium bicarbonate IV, 1 amp of sodium bicarbonate and D5W at 75 mL an hour, norepinephrine at 9 mcg per minute and vasopressin 0.03 units/minute. She is also on propofol 40 mcg/kg per minute. She is currently sedated. The patient will have a daily interruption of sedation. We start to consolidate the pressors into one pressor. I suggest to the nurse that she stop the vasopressin and bump the dose of Levophed up for mean arterial pressures of 60 to 65 mmHg. Microbiologic studies are showing them to be positive for E coli, beta-hemolytic Streptococcus and alpha hemolytic Streptococcus in the fluid from the abdomen. Current vital signs include a temperature 98.7, heart rate about 105 beats per minute, respiratory rate 20, blood pressure 107/63 with mean of 77, and saturations 96%. Central venous pressure is 11. Appears in no acute distress. Currently sedated. HEENT examination is grossly unremarkable. There is an orally placed endotracheal tube and NG tube. NECK: Supple. Full range of motion. No adenopathy. Neck veins are flat. Cardiovascular examination reveals regular rhythm and rate. She is mildly tachycardic. Heart rate about 105 beats per minute. S1, S2 normal. No distinct murmur noted. Lungs reveal a few scattered coarse rhonchi. No wheezes. No crackles. Breath sounds equal bilaterally. Abdomen is soft. The belly wound is evaluated. There is some drainage on the dressings. The muscular layer of the abdomen is closed. Extremities are intact. No cyanosis, clubbing, or edema. Skin without rash. Neurologic examination could not be adequately assessed as the patient is currently sedated. LAB DATA: Lab data is reviewed. White count 6, hemoglobin 10.5, hematocrit 32.4, platelet count 109,000. PT 13.1, INR 1.3. Blood gases have been noted. Sodium 136, potassium 2.5, chloride 113, CO2 of 19, anion gap is 4. BUN and creatinine were 10 and 0.48. The electrolytes are consistent with a hyperchloremic non-anion gap metabolic acidosis. I have asked the ladies to switch the fluid from 0.9 to half-normal saline. Lactic acid when last checked was 2.1, which is down. Magnesium is 1.2. Potassium 2.5. Chest x-ray suggests some mild basilar atelectasis or infiltrates. Medications are reviewed. ASSESSMENT: 1. Postoperative day #1, secondary to exploratory laparotomy, sigmoid colectomy and colostomy and appendectomy secondary to acute abdominal sepsis and diverticular abscess rupture. 2. Routine postoperative ventilator management. 3. Acute hypoxemic respiratory failure secondary to abdominal sepsis. 4. Hyperchloremic non-anion gap metabolic acidosis. 5. Previous anion gap metabolic acidosis secondary to lactic acidemia. 6. Chronic abdominal pain x6 months. 7. Leukopenia secondary to sepsis. 8. Possible history of underlying gastroesophageal reflux disease/ulcer disease as the patient was on proton pump inhibitor and cytoprotective agent prior to hospitalization. PLAN: The patient has got a complex medical issue right now. We did talk to Surgery. There is no plans taking the patient back to the operating room for a washout. The abdomen is closed. The patient's subcutaneous tissues are open and are weeping a bit. The patient will have the pressors consolidated. We will see if we cannot get the patient on Levophed alone. We will see if we cannot stop the vasopressin. We will attempt a daily interruption of sedation and a spontaneous breathing trial. Additional recommendations and suggestions are forthcoming. Prognosis is guarded. The patient's medications are reviewed. The patient will remain on antibiotics. There was E coli and a couple different alpha and beta-hemolytic strep in the abdominal fluid. Additional recommendations and suggestions are forthcoming. CRITICAL CARE TIME: 34 minutes. ELENA / EPSERANZA: [id number] / [id number]
[2018-07-31] MEDS: IPRATROPIUM-ALBUTEROL 3 ML NEB INHALATION SCH ×4 (10:55→19:22)
[2018-07-31 12:31] LABS: Glucose,Whole Blood 164 mg/dL (75-99)
[2018-07-31 12:42] LABS: ABG Base Excess -1.9 mmol/L; ABG HCO3 22 mmol/L (21-25); ABG Oxygen Saturation 99.5 % (94-97); ABG PCO2 30 mmHg (35-45); ABG PH 7.47 (7.35-7.45); ABG PO2 116 mmHg (83-108); ABG TCO2 23 mmol/L (19-24)
[2018-07-31] MEDS ORDERED: SODIUM CHLORIDE 0.9% 1,000 ML IV ONE (13:22)
[2018-07-31 15:32] LABS: Anion Gap 5 mmol/L; Blood Urea Nitrogen 9 mg/dL (7-17); Carbon Dioxide 20 mmol/L (22-30); Chloride 111 mmol/L (98-107); Glucose 147 mg/dL (74-99); Potassium 2.9 mmol/L (3.5-5.1); Sodium 136 mmol/L (137-145)
[2018-07-31 15:35] LABS: Calcium 6.3 mg/dL (8.4-10.2)
--- NOTE | 2018-07-31 15:35 | P.PN ---
Subjective Progress Note Date: 07/31/18 The patient is a 58-year-old female with no significant PMH who presented to the ED for nausea, vomiting, and dehydration with chronic abdominal pain of 6 months duration. In the ED the patient had computed tomography scan of the abdomen which showed a diverticular abscess and partial small bowel obstruction. She was started on IV fluids, and IV antibiotics with a general surgery consult and was admitted for further management. The patient opted for conservative management initially and a percutaneous drain was placed by IR on . The patient also had an elevated PTT and INR for which hematology was consulted and patient was started on Vit K after which the levels normalized. The patient was evaluated by ID and switched from Meropenem to Zosyn. On 07/30, the patient had worsening of her abdominal pain and became tachycardic, leukopenic, and had an elevated lactate. A repeat CT scan w/ contrast was obtained and showed pneumoperitoneum w/ subcutaneous emphysema. Surgery was contacted immediately and the patient was transferred to the MICU. The patient was subsequently taken for an ex-lap for perforated viscus. During the procedure , the patient was noted to have fecal peritonitis and underwent a sigmoid colectomy w/ end colostomy. The patient was transferred back to MICU post- operatively and was started on IV pressors. The patient was seen and examined at the bedside on 07/31/18 at 10 am. She is on mechanical ventilation and IV sedation. She is following basic commands. Objective - Vital Signs Vital signs: Vital Signs Temp 97.8 F 07/31/18 13:15 Pulse 125 H 07/31/18 14:00 Resp 21 07/31/18 14:00 BP 105/68 07/31/18 14:00 Pulse Ox 96 07/31/18 13:45 Intake & Output 07/30/18 07/31/18 07/31/18 18:59 06:59 18:59 Intake Total 6475.522 3620.331 3281.037 Output Total 730 415 444 Balance 5745.522 3205.331 2837.037 Weight 70.6 kg 70.6 kg Intake: IV 3700 3035 3152 Dextrose 5% in Water 1, 825 525 000 ml @ 75 mls/hr IV . [id number] JESSICA with Sodium Bicarb (1 Meq/ml) 150 ml Rx#:[id number] Magnesium Sulfate-D5w Pmx 200 100 1 gm In Dextrose/Water 1 100ml.bag @ 100 mls/hr IVPB Q1H [facility] Rx#: [id number] Piperacillin-Tazobactam 3 200 100 .375 gm In Sodium Chloride 0.9% 100 ml @ 25 mls/hr IVPB Q8HR [facility] Rx# :[id number] Potassium Chloride 20 meq 100 200 In Empty Bag 1 bag @ 50 mls/hr IVPB Q2H [facility] Rx#: [id number] Pressure bag 60 27 Sodium Chloride 0.9% 1, 1650 1200 000 ml @ 150 mls/hr IV . Q6H40M [facility] Rx#:[id number] Sodium Chloride 0.9% 1, 1000 000 ml @ 999 mls/hr IV . Q1H1M [facility] Rx#:[id number] Intake, IV Titration 2775.522 585.331 129.037 Amount Dextrose 5% in Water 1, 75 000 ml @ 75 mls/hr IV . [id number] JESSICA with Sodium Bicarb (1 Meq/ml) 150 ml Rx#:[id number] Lactated Ringers 1,000 ml 900 @ 0 mls/hr IV .STK-MED [facility] Rx#:[id number] Norepinephrine 16 mg In 56.550 206.924 57.573 Sodium Chloride 0.9% 250 ml @ Titrate IV .Q0M [facility] Rx#:[id number] Piperacillin-Tazobactam 3 50 25 .375 gm In Sodium Chloride 0.9% 100 ml @ 25 mls/hr IVPB Q8HR [facility] Rx# :[id number] Propofol 1,000 mg In 19.972 128.407 71.464 Empty Bag 1 bag @ Titrate IV .Q0M [facility] Rx#: [id number] Sodium Chloride 0.9% 1, 750 150 000 ml @ 150 mls/hr IV . Q6H40M [facility] Rx#:[id number] Sodium Chloride 0.9% 1, 999 000 ml @ 999 mls/hr IV . Q1H1M [facility] Rx#:[id number] Output: Urine 630 415 244 Stool 200 Estimated Blood Loss 100 Other: Voiding Method Indwelling Catheter Indwelling Catheter Indwelling Catheter ABP, PAP, CO, CI - Last Documented Arterial Blood Pressure 110/47 - Exam General: Intubated F, sedated, in NAD HEENT: NC/AT, orotracheal intubation Cardiovascular: S1/S2 wnl, no murmurs, rubs, or gallops Lungs: Clear to auscultation, normal respiratory effort, no accessory muscle use Abdominal: R sided abdominal dressing with some purulent discharge Skin: Warm, dry Extremities: No edema or contractures Psychiatric: Unable to assess Neuro: Following basic commands, opens eyes to verbal stimuli, tracking - Labs CBC & Chem 7: 07/31/18 02:20 07/31/18 15:10 Labs: Abnormal Lab Results - Last 24 Hours (Table) 07/30/18 07/30/18 07/30/18 Range/Units 14:05 16:15 16:30 RBC (3.80-5.40) m/uL Hgb (11.4-16.0) gm/dL Hct (34.0-46.0) % Plt Count (150-450) k/uL Lymphocytes # (Manual) (1.0-4.8) k/uL Metamyelocytes # (Man) (0) k/uL Myelocytes # (Manual) (0) k/uL PT (9.0-12.0) sec INR (<1.2) APTT (22.0-30.0) sec ABG pH 7.24 L (7.35-7.45) ABG pCO2 (35-45) mmHg ABG pO2 (83-108) mmHg ABG HCO3 16 L (21-25) mmol/L ABG Total CO2 17 L (19-24) mmol/L ABG O2 Saturation 98.0 H (94-97) % Sodium (137-145) mmol/L Potassium (3.5-5.1) mmol/L Chloride (98-107) mmol/L Carbon Dioxide (22-30) mmol/L Creatinine (0.52-1.04) mg/dL Glucose (74-99) mg/dL POC Glucose (mg/dL) (75-99) mg/dL Plasma Lactic Acid Cali 2.1 H* (0.7-2.0) mmol/L Calcium (8.4-10.2) mg/dL Ionized Calcium Abbi (4.5-5.3) mg/dL Magnesium (1.6-2.3) mg/dL Urine Appearance Cloudy H (Clear) Ur Specific [place] >1.050 H (1.001-1.035) Urine Protein 1+ H (Negative) Urine Ketones 1+ H (Negative) Urine Blood Small H (Negative) Urine Bilirubin 1+ H (Negative) Urine Bacteria Rare H (None) /hpf Urine Mucus Rare H (None) /hpf 07/30/18 07/31/18 07/31/18 Range/Units 23:13 02:20 02:20 RBC 3.64 L (3.80-5.40) m/uL Hgb 10.5 L (11.4-16.0) gm/dL Hct 32.4 L (34.0-46.0) % Plt Count 109 L D (150-450) k/uL Lymphocytes # (Manual) 0.84 L (1.0-4.8) k/uL Metamyelocytes # (Man) 0.54 H (0) k/uL Myelocytes # (Manual) 0.06 H (0) k/uL PT (9.0-12.0) sec INR (<1.2) APTT (22.0-30.0) sec ABG pH (7.35-7.45) ABG pCO2 (35-45) mmHg ABG pO2 (83-108) mmHg ABG HCO3 (21-25) mmol/L ABG Total CO2 (19-24) mmol/L ABG O2 Saturation (94-97) % Sodium 136 L (137-145) mmol/L Potassium 2.5 L* (3.5-5.1) mmol/L Chloride 113 H (98-107) mmol/L Carbon Dioxide 19 L (22-30) mmol/L Creatinine 0.48 L (0.52-1.04) mg/dL Glucose 165 H (74-99) mg/dL POC Glucose (mg/dL) 175 H (75-99) mg/dL Plasma Lactic Acid Cali (0.7-2.0) mmol/L Calcium 6.7 L (8.4-10.2) mg/dL Ionized Calcium Abbi (4.5-5.3) mg/dL Magnesium 1.2 L (1.6-2.3) mg/dL Urine Appearance (Clear) Ur Specific [place] (1.001-1.035) Urine Protein (Negative) Urine Ketones (Negative) Urine Blood (Negative) Urine Bilirubin (Negative) Urine Bacteria (None) /hpf Urine Mucus (None) /hpf 07/31/18 07/31/18 07/31/18 Range/Units 02:20 02:20 02:50 RBC (3.80-5.40) m/uL Hgb (11.4-16.0) gm/dL Hct (34.0-46.0) % Plt Count (150-450) k/uL Lymphocytes # (Manual) (1.0-4.8) k/uL Metamyelocytes # (Man) (0) k/uL Myelocytes # (Manual) (0) k/uL PT 13.1 H (9.0-12.0) sec INR 1.3 H (<1.2) APTT 34.2 H (22.0-30.0) sec ABG pH (7.35-7.45) ABG pCO2 (35-45) mmHg ABG pO2 (83-108) mmHg ABG HCO3 (21-25) mmol/L ABG Total CO2 (19-24) mmol/L ABG O2 Saturation (94-97) % Sodium (137-145) mmol/L Potassium (3.5-5.1) mmol/L Chloride (98-107) mmol/L Carbon Dioxide (22-30) mmol/L Creatinine (0.52-1.04) mg/dL Glucose (74-99) mg/dL POC Glucose (mg/dL) (75-99) mg/dL Plasma Lactic Acid Cali 2.1 H* (0.7-2.0) mmol/L Calcium (8.4-10.2) mg/dL Ionized Calcium Abbi 4.4 L (4.5-5.3) mg/dL Magnesium (1.6-2.3) mg/dL Urine Appearance (Clear) Ur Specific [place] (1.001-1.035) Urine Protein (Negative) Urine Ketones (Negative) Urine Blood (Negative) Urine Bilirubin (Negative) Urine Bacteria (None) /hpf Urine Mucus (None) /hpf 07/31/18 07/31/18 07/31/18 Range/Units 04:30 05:56 07:00 RBC (3.80-5.40) m/uL Hgb (11.4-16.0) gm/dL Hct (34.0-46.0) % Plt Count (150-450) k/uL Lymphocytes # (Manual) (1.0-4.8) k/uL Metamyelocytes # (Man) (0) k/uL Myelocytes # (Manual) (0) k/uL PT (9.0-12.0) sec INR (<1.2) APTT (22.0-30.0) sec ABG pH (7.35-7.45) ABG pCO2 33 L (35-45) mmHg ABG pO2 126 H (83-108) mmHg ABG HCO3 (21-25) mmol/L ABG Total CO2 (19-24) mmol/L ABG O2 Saturation 99.2 H (94-97) % Sodium (137-145) mmol/L Potassium (3.5-5.1) mmol/L Chloride (98-107) mmol/L Carbon Dioxide (22-30) mmol/L Creatinine (0.52-1.04) mg/dL Glucose (74-99) mg/dL POC Glucose (mg/dL) 190 H (75-99) mg/dL Plasma Lactic Acid Cali 2.1 H* (0.7-2.0) mmol/L Calcium (8.4-10.2) mg/dL Ionized Calcium Abbi (4.5-5.3) mg/dL Magnesium (1.6-2.3) mg/dL Urine Appearance (Clear) Ur Specific [place] (1.001-1.035) Urine Protein (Negative) Urine Ketones (Negative) Urine Blood (Negative) Urine Bilirubin (Negative) Urine Bacteria (None) /hpf Urine Mucus (None) /hpf 07/31/18 07/31/18 Range/Units 11:57 12:34 RBC (3.80-5.40) m/uL Hgb (11.4-16.0) gm/dL Hct (34.0-46.0) % Plt Count (150-450) k/uL Lymphocytes # (Manual) (1.0-4.8) k/uL Metamyelocytes # (Man) (0) k/uL Myelocytes # (Manual) (0) k/uL PT (9.0-12.0) sec INR (<1.2) APTT (22.0-30.0) sec ABG pH 7.47 H (7.35-7.45) ABG pCO2 30 L (35-45) mmHg ABG pO2 116 H (83-108) mmHg ABG HCO3 (21-25) mmol/L ABG Total CO2 (19-24) mmol/L ABG O2 Saturation 99.5 H (94-97) % Sodium (137-145) mmol/L Potassium (3.5-5.1) mmol/L Chloride (98-107) mmol/L Carbon Dioxide (22-30) mmol/L Creatinine (0.52-1.04) mg/dL Glucose (74-99) mg/dL POC Glucose (mg/dL) 164 H (75-99) mg/dL Plasma Lactic Acid Cali (0.7-2.0) mmol/L Calcium (8.4-10.2) mg/dL Ionized Calcium Abbi (4.5-5.3) mg/dL Magnesium (1.6-2.3) mg/dL Urine Appearance (Clear) Ur Specific [place] (1.001-1.035) Urine Protein (Negative) Urine Ketones (Negative) Urine Blood (Negative) Urine Bilirubin (Negative) Urine Bacteria (None) /hpf Urine Mucus (None) /hpf Microbiology - Last 24 Hours (Table) 07/30/18 09:24 Blood Culture - Preliminary Blood No Growth after 24 hours 07/28/18 14:30 Anaerobic Culture - Preliminary Abdomen Anaerobic Gm Negative Bacilli Anaerobic Gm Negative Bacilli#2 Anaerobic Gm Positive Bacill Anaerobic Gm Negative Bacilli#3 07/30/18 08:20 Blood Culture - Preliminary Blood No Growth after 24 hours 07/28/18 14:30 Gram Stain - Final Cyst Body Fluid Culture - Final Escherichia coli Beta Hemolytic Streptococcus F Alpha Hemolytic Streptococcus Assessment and Plan Plan: Septic shock secondary to diverticular abdscess rupture, s/p ex-lap w/ sigmoid colostomy POD # 1 -Currently on Levophed, w/ titration as tolerated. Critical care following -C/w Mechanical ventilation -IV Abxs as per ID, currently on Zosyn -Sedation holiday as tolerated Metabolic acidosis secondary to septic shock -Lactate 2.7 -2 L NS bolus ordered by Surgery -C/w IV Abxs and Sodium Bicarb drip Severe hypokalemia and hypomagnasemia -Replaced. Will monitor Normocytic anemia with thrombocytopenia -Hematology following -Likely due to septic shock Leukopenia, resolved DVT//GI prophylaxis -IPCDs -No indication for GI prophylaxis Anticipated discharge date: 08/04/[address]: Home A total of 35 minutes was spent on the care of this complex patient more than 50 % of the time was spent in counseling and care coordination.
--- NOTE | 2018-07-31 15:41 | P.PN ---
Subjective Progress Note Date: 07/31/18 CHIEF COMPLAINT: Abdominal pain HISTORY OF PRESENT ILLNESS: Patient is status post sigmoid colectomy with end colostomy, takedown of splenic flexure, small bowel resection 2, and appendectomy. POD #1. Patient has been extubated. Ostomy to left lower quadrant with stool noted. Midline incision is packed with kerlix. Patient has had a lot of drainage from abdomen. Dressing changed at bedside. She is on levo at 14mcg. Mildly hypotensive and tachycardic. Lactic acid 2.1 this morning. PHYSICAL EXAM: VITAL SIGNS: Currently stable. GENERAL: Well-developed in no acute distress. HEENT: No sclera icterus. Extraocular movements grossly intact. Moist buccal mucosa. Head is atraumatic, normocephalic. Hears conversational speech. No nasal drainage. NECK: Supple without lymphadenopathy. CHEST: Non-labored respirations and equal bilateral excursions. CARDIOVASCULAR: Regular rate with regular rhythm. Palpable 2+ radial pulses. ABDOMEN: Soft. Nondistended. Midline incision packed with wet to dry Kerlix. Ostomy present with stool noted. MUSCULOSKELETAL: No clubbing, cyanosis or edema. NEUROLOGIC: No focal or lateralizing signs. Cranial nerves II through XII grossly intact. PSYCH: Appropriate affect. Alert and oriented to person, place and time. SKIN: Well perfused. Good skin turgor. ASSESSMENT: 1. Small bowel obstruction with perforated sigmoid colon and fecal peritonitis 2. Status post sigmoid colectomy with end colostomy, takedown of splenic flexure, small bowel resection 2, and appendectomy PLAN: 1L 0.9NS bolus. Repeat venous lactic acid this afternoon. Patient may have ice chips. No TPN at this time per Dr. Jacobson. Obtain wound vac for midline abdominal incision. Nurse practitioner note has been reviewed by physician. Signing provider agrees with the documented findings, assessment, and plan of care. Objective - Vital Signs Vital signs: Vital Signs Temp 97.8 F 07/31/18 13:15 Pulse 126 H 07/31/18 15:15 Resp 24 07/31/18 15:15 BP 105/68 07/31/18 14:00 Pulse Ox 94 L 07/31/18 15:15 Intake & Output 07/30/18 07/31/18 07/31/18 18:59 06:59 18:59 Intake Total 6475.522 3620.331 4509.037 Output Total 730 415 484 Balance 5745.522 3205.331 4025.037 Weight 70.6 kg 70.6 kg Intake: IV 3700 3035 4380 Dextrose 5% in Water 1, 825 600 000 ml @ 75 mls/hr IV . [id number] JESSICA with Sodium Bicarb (1 Meq/ml) 150 ml Rx#:[id number] Magnesium Sulfate-D5w Pmx 200 100 1 gm In Dextrose/Water 1 100ml.bag @ 100 mls/hr IVPB Q1H [facility] Rx#: [id number] Piperacillin-Tazobactam 3 200 100 .375 gm In Sodium Chloride 0.9% 100 ml @ 25 mls/hr IVPB Q8HR [facility] Rx# :[id number] Potassium Chloride 20 meq 100 200 In Empty Bag 1 bag @ 50 mls/hr IVPB Q2H [facility] Rx#: [id number] Pressure bag 60 30 Sodium Chloride 0.9% 1, 1650 1350 000 ml @ 150 mls/hr IV . Q6H40M [facility] Rx#:[id number] Sodium Chloride 0.9% 1, 2000 000 ml @ 999 mls/hr IV . Q1H1M [facility] Rx#:[id number] Intake, IV Titration 2775.522 585.331 129.037 Amount Dextrose 5% in Water 1, 75 000 ml @ 75 mls/hr IV . [id number] JESSICA with Sodium Bicarb (1 Meq/ml) 150 ml Rx#:[id number] Lactated Ringers 1,000 ml 900 @ 0 mls/hr IV .STK-MED [facility] Rx#:[id number] Norepinephrine 16 mg In 56.550 206.924 57.573 Sodium Chloride 0.9% 250 ml @ Titrate IV .Q0M [facility] Rx#:[id number] Piperacillin-Tazobactam 3 50 25 .375 gm In Sodium Chloride 0.9% 100 ml @ 25 mls/hr IVPB Q8HR [facility] Rx# :[id number] Propofol 1,000 mg In 19.972 128.407 71.464 Empty Bag 1 bag @ Titrate IV .Q0M [facility] Rx#: [id number] Sodium Chloride 0.9% 1, 750 150 000 ml @ 150 mls/hr IV . Q6H40M [facility] Rx#:[id number] Sodium Chloride 0.9% 1, 999 000 ml @ 999 mls/hr IV . Q1H1M [facility] Rx#:[id number] Output: Urine 630 415 284 Stool 200 Estimated Blood Loss 100 Other: Voiding Method Indwelling Catheter Indwelling Catheter Indwelling Catheter ABP, PAP, CO, CI - Last Documented Arterial Blood Pressure 109/43 - Labs CBC & Chem 7: 07/31/18 02:20 07/31/18 02:20 Labs: Abnormal Lab Results - Last 24 Hours (Table) 07/30/18 07/30/18 07/30/18 Range/Units 16:15 16:30 23:13 RBC (3.80-5.40) m/uL Hgb (11.4-16.0) gm/dL Hct (34.0-46.0) % Plt Count (150-450) k/uL Lymphocytes # (Manual) (1.0-4.8) k/uL Metamyelocytes # (Man) (0) k/uL Myelocytes # (Manual) (0) k/uL PT (9.0-12.0) sec INR (<1.2) APTT (22.0-30.0) sec ABG pH 7.24 L (7.35-7.45) ABG pCO2 (35-45) mmHg ABG pO2 (83-108) mmHg ABG HCO3 16 L (21-25) mmol/L ABG Total CO2 17 L (19-24) mmol/L ABG O2 Saturation 98.0 H (94-97) % ABG Lactic Acid (0.5-1.6) mmol/L Sodium (137-145) mmol/L Potassium (3.5-5.1) mmol/L Chloride (98-107) mmol/L Carbon Dioxide (22-30) mmol/L Creatinine (0.52-1.04) mg/dL Glucose (74-99) mg/dL POC Glucose (mg/dL) 175 H (75-99) mg/dL Plasma Lactic Acid Cali (0.7-2.0) mmol/L Calcium (8.4-10.2) mg/dL Ionized Calcium Abbi (4.5-5.3) mg/dL Magnesium (1.6-2.3) mg/dL Urine Appearance Cloudy H (Clear) Ur Specific [place] >1.050 H (1.001-1.035) Urine Protein 1+ H (Negative) Urine Ketones 1+ H (Negative) Urine Blood Small H (Negative) Urine Bilirubin 1+ H (Negative) Urine Bacteria Rare H (None) /hpf Urine Mucus Rare H (None) /hpf 07/31/18 07/31/18 07/31/18 Range/Units 02:20 02:20 02:20 RBC 3.64 L (3.80-5.40) m/uL Hgb 10.5 L (11.4-16.0) gm/dL Hct 32.4 L (34.0-46.0) % Plt Count 109 L D (150-450) k/uL Lymphocytes # (Manual) 0.84 L (1.0-4.8) k/uL Metamyelocytes # (Man) 0.54 H (0) k/uL Myelocytes # (Manual) 0.06 H (0) k/uL PT (9.0-12.0) sec INR (<1.2) APTT (22.0-30.0) sec ABG pH (7.35-7.45) ABG pCO2 (35-45) mmHg ABG pO2 (83-108) mmHg ABG HCO3 (21-25) mmol/L ABG Total CO2 (19-24) mmol/L ABG O2 Saturation (94-97) % ABG Lactic Acid (0.5-1.6) mmol/L Sodium 136 L (137-145) mmol/L Potassium 2.5 L* (3.5-5.1) mmol/L Chloride 113 H (98-107) mmol/L Carbon Dioxide 19 L (22-30) mmol/L Creatinine 0.48 L (0.52-1.04) mg/dL Glucose 165 H (74-99) mg/dL POC Glucose (mg/dL) (75-99) mg/dL Plasma Lactic Acid Cali 2.1 H* (0.7-2.0) mmol/L Calcium 6.7 L (8.4-10.2) mg/dL Ionized Calcium Abbi (4.5-5.3) mg/dL Magnesium 1.2 L (1.6-2.3) mg/dL Urine Appearance (Clear) Ur Specific [place] (1.001-1.035) Urine Protein (Negative) Urine Ketones (Negative) Urine Blood (Negative) Urine Bilirubin (Negative) Urine Bacteria (None) /hpf Urine Mucus (None) /hpf 07/31/18 07/31/18 07/31/18 Range/Units 02:20 02:50 04:30 RBC (3.80-5.40) m/uL Hgb (11.4-16.0) gm/dL Hct (34.0-46.0) % Plt Count (150-450) k/uL Lymphocytes # (Manual) (1.0-4.8) k/uL Metamyelocytes # (Man) (0) k/uL Myelocytes # (Manual) (0) k/uL PT 13.1 H (9.0-12.0) sec INR 1.3 H (<1.2) APTT 34.2 H (22.0-30.0) sec ABG pH (7.35-7.45) ABG pCO2 33 L (35-45) mmHg ABG pO2 126 H (83-108) mmHg ABG HCO3 (21-25) mmol/L ABG Total CO2 (19-24) mmol/L ABG O2 Saturation 99.2 H (94-97) % ABG Lactic Acid (0.5-1.6) mmol/L Sodium (137-145) mmol/L Potassium (3.5-5.1) mmol/L Chloride (98-107) mmol/L Carbon Dioxide (22-30) mmol/L Creatinine (0.52-1.04) mg/dL Glucose (74-99) mg/dL POC Glucose (mg/dL) (75-99) mg/dL Plasma Lactic Acid Cali (0.7-2.0) mmol/L Calcium (8.4-10.2) mg/dL Ionized Calcium Abbi 4.4 L (4.5-5.3) mg/dL Magnesium (1.6-2.3) mg/dL Urine Appearance (Clear) Ur Specific [place] (1.001-1.035) Urine Protein (Negative) Urine Ketones (Negative) Urine Blood (Negative) Urine Bilirubin (Negative) Urine Bacteria (None) /hpf Urine Mucus (None) /hpf 07/31/18 07/31/18 07/31/18 Range/Units 05:56 07:00 11:57 RBC (3.80-5.40) m/uL Hgb (11.4-16.0) gm/dL Hct (34.0-46.0) % Plt Count (150-450) k/uL Lymphocytes # (Manual) (1.0-4.8) k/uL Metamyelocytes # (Man) (0) k/uL Myelocytes # (Manual) (0) k/uL PT (9.0-12.0) sec INR (<1.2) APTT (22.0-30.0) sec ABG pH (7.35-7.45) ABG pCO2 (35-45) mmHg ABG pO2 (83-108) mmHg ABG HCO3 (21-25) mmol/L ABG Total CO2 (19-24) mmol/L ABG O2 Saturation (94-97) % ABG Lactic Acid (0.5-1.6) mmol/L Sodium (137-145) mmol/L Potassium (3.5-5.1) mmol/L Chloride (98-107) mmol/L Carbon Dioxide (22-30) mmol/L Creatinine (0.52-1.04) mg/dL Glucose (74-99) mg/dL POC Glucose (mg/dL) 190 H 164 H (75-99) mg/dL Plasma Lactic Acid Cali 2.1 H* (0.7-2.0) mmol/L Calcium (8.4-10.2) mg/dL Ionized Calcium Abbi (4.5-5.3) mg/dL Magnesium (1.6-2.3) mg/dL Urine Appearance (Clear) Ur Specific [place] (1.001-1.035) Urine Protein (Negative) Urine Ketones (Negative) Urine Blood (Negative) Urine Bilirubin (Negative) Urine Bacteria (None) /hpf Urine Mucus (None) /hpf 07/31/18 07/31/18 Range/Units 12:34 14:20 RBC (3.80-5.40) m/uL Hgb (11.4-16.0) gm/dL Hct (34.0-46.0) % Plt Count (150-450) k/uL Lymphocytes # (Manual) (1.0-4.8) k/uL Metamyelocytes # (Man) (0) k/uL Myelocytes # (Manual) (0) k/uL PT (9.0-12.0) sec INR (<1.2) APTT (22.0-30.0) sec ABG pH 7.47 H (7.35-7.45) ABG pCO2 30 L (35-45) mmHg ABG pO2 116 H (83-108) mmHg ABG HCO3 (21-25) mmol/L ABG Total CO2 (19-24) mmol/L ABG O2 Saturation 99.5 H (94-97) % ABG Lactic Acid 2.7 H* (0.5-1.6) mmol/L Sodium (137-145) mmol/L Potassium (3.5-5.1) mmol/L Chloride (98-107) mmol/L Carbon Dioxide (22-30) mmol/L Creatinine (0.52-1.04) mg/dL Glucose (74-99) mg/dL POC Glucose (mg/dL) (75-99) mg/dL Plasma Lactic Acid Cali (0.7-2.0) mmol/L Calcium (8.4-10.2) mg/dL Ionized Calcium Abbi (4.5-5.3) mg/dL Magnesium (1.6-2.3) mg/dL Urine Appearance (Clear) Ur Specific [place] (1.001-1.035) Urine Protein (Negative) Urine Ketones (Negative) Urine Blood (Negative) Urine Bilirubin (Negative) Urine Bacteria (None) /hpf Urine Mucus (None) /hpf Microbiology - Last 24 Hours (Table) 07/30/18 09:24 Blood Culture - Preliminary Blood No Growth after 24 hours 07/28/18 14:30 Anaerobic Culture - Preliminary Abdomen Anaerobic Gm Negative Bacilli Anaerobic Gm Negative Bacilli#2 Anaerobic Gm Positive Bacill Anaerobic Gm Negative Bacilli#3 07/30/18 08:20 Blood Culture - Preliminary Blood No Growth after 24 hours 07/28/18 14:30 Gram Stain - Final Cyst Body Fluid Culture - Final Escherichia coli Beta Hemolytic Streptococcus F Alpha Hemolytic Streptococcus Assessment and Plan (1) Abdominal pain Current Visit: Yes Status: Acute Code(s): R10.9 - UNSPECIFIED ABDOMINAL PAIN SNOMED Code(s): 91243304 (2) Decreased oral intake Current Visit: Yes Status: Acute Code(s): R63.8 - OTHER SYMPTOMS AND SIGNS CONCERNING FOOD AND FLUID INTAKE SNOMED Code(s): 856434727 (3) Colonic diverticular abscess Current Visit: Yes Status: Acute Code(s): K57.20 - DVTRCLI OF LG INT W PERFORATION AND ABSCESS W/O BLEEDING SNOMED Code(s): 668141163 (4) Partial bowel obstruction Current Visit: Yes Status: Acute Code(s): K56.600 - PARTIAL INTESTINAL OBSTRUCTION, UNSPECIFIED TO CAUSE SNOMED Code(s): 81858954
[2018-07-31] MEDS: POTASSIUM CHLORIDE 20 MEQ in WATER FOR INJECTION 1 100ML.BAG IVPB SCH ×3 (15:55→21:13)
[2018-07-31] MEDS: HYDROmorphone 0.5 MG/0.5 ML SYRINGE IVP PRN ×2 (16:13→18:57)
[2018-07-31 18:49] LABS: Glucose,Whole Blood 142 mg/dL (75-99)
--- NOTE | 2018-07-31 19:35 | PN ---
PROGRESS NOTE DATE OF SERVICE: 07/31/2018 REASON FOR FOLLOWUP: Abdominal abscess. INTERVAL HISTORY: The patient is currently afebrile, hemodynamically stable. FiO2 is stable. No other changes in her clinical condition. PHYSICAL EXAMINATION: Blood pressure is 108/46, pulse 141, temperature of 98. She is 94% on 50% FiO2. RESPIRATORY SYSTEM: Unlabored breathing. Clear to auscultation anteriorly. HEART: S1, S2. Regular rate and rhythm. ABDOMEN: Soft. Mildly distended. EXTREMITIES: No edema of the feet. LABS: BUN of 9, creatinine 0.47, hemoglobin 10.5, white count 6.0. The cultures obtained from the CT-guided drainage show E coli as well as beta hemolytic Streptococcus and anaerobic gram-negative bacilli. DIAGNOSTIC IMPRESSION AND PLAN: Patient with an abdominal abscess from ruptured diverticulitis, status post diverting colostomy. Culture predominantly with an Escherichia coli and sensitive pathogens with gram-negative. Antibiotic will be switched over to Unasyn 3 grams q.6 in addition to the Flagyl 500 every 8 hours and watch her clinical course closely. Continue supportive care. MMODL / IJN: [id number] /
[2018-07-31] MEDS: AMPICILLIN-SULBACTAM 3 GM in SODIUM CHLORIDE 0.9% 100 ML IVPB SCH (21:13)
[2018-08-01] MEDS: IPRATROPIUM-ALBUTEROL 3 ML NEB INHALATION SCH ×6 (00:22→19:50)
[2018-08-01] MEDS: DEXTROSE 5% IN WATER 1,000 ML with SODIUM BICARB (1 MEQ/ML) 150 ML IV SCH (00:44)
[2018-08-01] MEDS: SODIUM CHLORIDE 0.45% 1,000 ML IV SCH ×4 (00:44→18:26)
[2018-08-01 00:48] LABS: Glucose,Whole Blood 121 mg/dL (75-99)
[2018-08-01] MEDS: INSULIN ASPART (NovoLOG) 100 UNIT/ML VIAL SQ SCH ×4 (01:10→18:04)
[2018-08-01] MEDS: metroNIDAZOLE-NS PMX 500 MG in SALINE 1 100ML.BAG IVPB SCH ×3 (01:13→16:18)
[2018-08-01] MEDS: HYDROmorphone 0.5 MG/0.5 ML SYRINGE IVP PRN ×3 (01:16→12:30)
[2018-08-01] MEDS: AMPICILLIN-SULBACTAM 3 GM in SODIUM CHLORIDE 0.9% 100 ML IVPB SCH ×4 (01:17→18:03)
[2018-08-01] MEDS ORDERED: Potassium Replacement Protocol 1 EACH MISC MISCELLANE PRN (04:21)
[2018-08-01] MEDS: POTASSIUM CHLORIDE 20 MEQ in WATER FOR INJECTION 1 100ML.BAG IVPB SCH ×2 (04:34→07:17)
[2018-08-01 06:32] LABS: Anion Gap 3 mmol/L; Blood Urea Nitrogen 8 mg/dL (7-17); Carbon Dioxide 23 mmol/L (22-30); Chloride 109 mmol/L (98-107); Glucose 148 mg/dL (74-99); Magnesium 1.5 mg/dL (1.6-2.3); Phosphorus 1.7 mg/dL (2.5-4.5); Potassium 3.3 mmol/L (3.5-5.1); Sodium 135 mmol/L (137-145)
[2018-08-01 06:43] LABS: HCT 28.2 % (34.0-46.0); HGB 9.2 gm/dL (11.4-16.0); MCH 28.8 pg (25.0-35.0); MCHC 32.5 g/dL (31.0-37.0); MCV 88.6 fL (80.0-100.0); Mean Platelet Volume 7.8; RBC 3.18 m/uL (3.80-5.40); RDW 14.1 % (11.5-15.5); WBC 11.3 k/uL (3.8-10.6)
[2018-08-01 06:44] LABS: Calcium 6.2 mg/dL (8.4-10.2)
[2018-08-01 07:41] LABS: Glucose,Whole Blood 130 mg/dL (75-99)
--- NOTE | 2018-08-01 07:55 | XR ---
EXAMINATION TYPE: XR chest 1V portable DATE OF EXAM: 08/01/2018 CLINICAL HISTORY: Difficulty breathing progress study. TECHNIQUE: Single AP portable semiupright view of the chest is obtained. COMPARISON: Chest x-ray from one day earlier and older studies. FINDINGS: There is interval extubation with removal of the endotracheal and orogastric tubes. There is stable left subclavian central venous catheter. Cardiac silhouette size is stable and upper limits of normal. There is central vascular congestion redemonstrated perhaps slightly more prominent. Ther e is persistent left basilar opacity. No pneumothorax is seen bilaterally. Osseous structures are int act. IMPRESSION: Persistent left basilar acute infiltrate and/or atelectasis and probable small left pleur al effusion. Developing mild to moderate central vascular congestion is felt present new from most re cent prior. Progress study advised.
[2018-08-01 08:12] LABS: Band Neutrophils % 8 %; Eosinophils # (M) 0.11 k/uL (0-0.7); Lymphocytes # (M) 0.57 k/uL (1.0-4.8); Metamyelocytes # (M) 0.34 k/uL (0); Metamyelocytes % 3 %; Monocytes # (M) 0.45 k/uL (0-1.0); Myelocytes # (M) 0.11 k/uL (0); Myelocytes % 1 %; Neutrophils % (M) 80 %; Nucleated Red Blood Cells 0 /100 WBC (0-0); Total Cells Counted 200; Toxic Vacuolation Present
[2018-08-01 08:13] LABS: Platelet Count 30 k/uL (150-450)
[2018-08-01] MEDS: PANTOPRAZOLE 40 MG/10 ML VIAL IVP SCH (08:59)
[2018-08-01] MEDS: MAGNESIUM SULFATE-D5W PMX 1 GM in DEXTROSE/WATER 1 100ML.BAG IVPB SCH ×2 (08:59→10:05)
[2018-08-01] MEDS: NOREPINEPHRINE 16 MG in SODIUM CHLORIDE 0.9% 250 ML IV SCH ×2 (09:30→15:59)
[2018-08-01] MEDS: HYDROCORTISONE SUCCINATE 100 MG/2 ML VIAL IV SCH ×2 (10:04→16:10)
--- NOTE | 2018-08-01 10:24 | PN ---
PROGRESS NOTE DATE OF SERVICE: 08/01/2018 This is a 58-year-old female who was admitted on July 26 for abdominal pain. Subsequent to that, she was discovered to have a bowel obstruction. The patient underwent an exploratory laparotomy on July 30 and ended up with a sigmoid colectomy and colostomy with appendectomy. She also had acute abdominal sepsis secondary to a diverticular abscess. She is postop day #2. Yesterday, she was extubated. She is currently on 2 L. She is weak. The patient remains on norepinephrine 20 mcg/minute. I asked for stat random cortisol. We are going to try to wean the Levophed. In addition, we want her to use the incentive spirometer q.1 hour while awake. The patient's sodium bicarbonate drip can be discontinued. She was getting 3 amps of sodium bicarbonate and D5W at 75 mL an hour. The patient is on also getting half- normal saline at 150 mL an hour. Again, the patient appears to be relatively weak. The patient was extubated yesterday. She is currently on 2 L nasal cannula. Current vital signs are reviewed. Her temperature is 97.7, heart rate is 128 beats per minute, respiratory rate 17, blood pressure 90/51 and mean of 64. Her CVP is only 4 and her saturations are 97% on 2 L. She appears in no acute distress. Does appear ill, frail and weak. HEENT examination is grossly unremarkable. Nasal O2 in place. Neck is supple. Full range of motion. No adenopathy or thyromegaly. Cardiovascular examination reveals regular rhythm and rate. S1, S2. No S3, S4, or murmur. Lungs reveal scattered bilateral rhonchi. No wheezes or crackles. Breath sounds are equal. Abdomen is soft. A colostomy bag is noted. The subcutaneous tissues and skin are open. There are no bowel sounds. Extremities are intact. No cyanosis, clubbing, or edema. Skin without rash. Neurologic examination is brief but nonfocal. CHEST X-RAY: From 08/01 shows some bibasilar infiltrates or atelectasis. There is some mild central venous vascular congestion. There is a small left pleural effusion. Microbiologic studies showing a number of different things and the fluid analysis from the belly including an anaerobic gram-negative bacilli, three different types. There is also anaerobic gram-positive bacilli. There is also some E coli in the body fluid cultures. In addition, there was beta-hemolytic and alpha hemolytic streptococcus. LAB DATA: Reviewed. White count 11.3, hemoglobin 9.2, hematocrit 28.2, platelet count is 30,000. Sodium 135, potassium 3.3, chloride is 109, CO2 is 23, cortisols 22, magnesium 1.5, phosphorus 1.7. Calcium 6.2, BUN and creatinine were 8 and 0.4. Medications are reviewed. For antibiotics, she remains on Unasyn and Flagyl. Her 24 hour I and O is a +8.9 L. ASSESSMENT: 1. Postoperative day #2, status post exploratory laparotomy, sigmoid colectomy and colostomy and an appendectomy, secondary to acute abdominal sepsis and diverticular abscess. 2. Routine postoperative ventilator management with extubation on July 31. 3. Acute hypoxemic respiratory failure secondary to abdominal sepsis, resolved. 4. Hyperchloremic non-anion gap metabolic acidosis, improved. 5. Previous anion gap metabolic acidosis secondary to lactic acidemia, resolved. 6. Chronic abdominal pain x6 months. 7. Leukopenia secondary to sepsis. 8. Gastroesophageal reflux disease. 9. Possible adrenal insufficiency with a random cortisol level of 22. PLAN: The patient will get hydrocortisone 100 mg q.8 hours for possible adrenal insufficiency. This is relative adrenal insufficiency, so to speak. In addition, we will try to wean the Levophed and get the patient going on incentive spirometer. Additional recommendations and suggestions are forthcoming. The patient will be watched very closely. She has a number of complex medical issues. Chest x-ray showing a bit of fluid with fluid overload. She has got quite a bit of fluid in the last 24-48 hours. Additional recommendations and suggestions are forthcoming. She is on good antibiotics in form of Unasyn and Flagyl. Infectious Disease is on the case. Will continue to follow. Critical care time is 33 minutes. MMODL / IJN: [id number] /
[2018-08-01 11:57] LABS: Glucose,Whole Blood 202 mg/dL (75-99)
[2018-08-01 12:53] LABS: HCT 28.6 % (34.0-46.0); HGB 9.4 gm/dL (11.4-16.0); MCH 29.1 pg (25.0-35.0); MCHC 32.7 g/dL (31.0-37.0); Mean Platelet Volume 8.7; RBC 3.22 m/uL (3.80-5.40); RDW 14.3 % (11.5-15.5); WBC 13.1 k/uL (3.8-10.6)
[2018-08-01] MEDS ORDERED: Phosphorus Replacement Protoco 1 EACH MISC MISCELLANE PRN (12:56)
[2018-08-01 13:00] LABS: Platelet Count 25 k/uL (150-450)
--- NOTE | 2018-08-01 13:00 | P.PN ---
Subjective Progress Note Date: 08/01/18 The patient is a 58-year-old female with no significant PMH who presented to the ED for nausea, vomiting, and dehydration with chronic abdominal pain of 6 months duration. In the ED the patient had computed tomography scan of the abdomen which showed a diverticular abscess and partial small bowel obstruction. She was started on IV fluids, and IV antibiotics with a general surgery consult and was admitted for further management. The patient opted for conservative management initially and a percutaneous drain was placed by IR on . The patient also had an elevated PTT and INR for which hematology was consulted and patient was started on Vit K after which the levels normalized. The patient was evaluated by ID and switched from Meropenem to Zosyn. On 07/30, the patient had worsening of her abdominal pain and became tachycardic, leukopenic, and had an elevated lactate. A repeat CT scan w/ contrast was obtained and showed pneumoperitoneum w/ subcutaneous emphysema. Surgery was contacted immediately and the patient was transferred to the MICU. The patient was subsequently taken for an ex-lap for perforated viscus. During the procedure , the patient was noted to have fecal peritonitis and underwent a sigmoid colectomy w/ end colostomy. The patient was transferred back to MICU post- operatively and was started on IV pressors. The patient was extubated yesterday. She continues to require Levophed. ID recommended the patient to be switched to Unasyn and Flagyl. Furthermore, a random cortisol level was drawn and was 22, for which patient was started on hydrocortisone for suspected adrenal insufficiency. The patient was seen at the bedside on the MICU. She appeared weak and lethargic though answering all questions appropriately. She noted her pain is well controlled. Objective - Vital Signs Vital signs: Vital Signs Temp 97.6 F 08/01/18 08:00 Pulse 134 H 08/01/18 11:58 Resp 16 08/01/18 11:00 BP 92/54 08/01/18 11:00 Pulse Ox 95 08/01/18 11:00 Intake & Output 07/31/18 08/01/18 08/01/18 18:59 06:59 18:59 Intake Total 6284.191 3923.799 1447.854 Output Total 1024 880 400 Balance 5260.191 3043.799 1047.854 Weight 70.6 kg 86.2 kg Intake: IV 6064 3836 1406 0.45 1650 750 Dextrose 5% in Water 1, 825 900 150 000 ml @ 75 mls/hr IV . [id number] JESSICA with Sodium Bicarb (1 Meq/ml) 150 ml Rx#:[id number] LR 1000 Magnesium Sulfate-D5w Pmx 100 200 1 gm In Dextrose/Water 1 100ml.bag @ 100 mls/hr IVPB Q1H [facility] Rx#: [id number] Magnesium Sulfate-D5w Pmx 200 1 gm In Dextrose/Water 1 100ml.bag @ 100 mls/hr IVPB Q1H [facility] Rx#: [id number] Piperacillin-Tazobactam 3 200 .375 gm In Sodium Chloride 0.9% 100 ml @ 25 mls/hr IVPB Q8HR [facility] Rx# :[id number] Potassium Chloride 20 meq 400 100 In Empty Bag 1 bag @ 50 mls/hr IVPB Q2H [facility] Rx#: [id number] Pressure bag 39 36 6 Sodium Chloride 0.9% 1, 1500 150 000 ml @ 150 mls/hr IV . Q6H40M [facility] Rx#:[id number] Sodium Chloride 0.9% 1, 3000 000 ml @ 999 mls/hr IV . Q1H1M ONE Rx#:[id number] metroNIDAZOLE-NS PMX 500 100 mg In Saline 1 100ml.bag @ 100 mls/hr IVPB Q8HR [facility] Rx#:[id number] Intake, IV Titration 220.191 87.799 41.854 Amount Norepinephrine 16 mg In 148.727 87.799 41.854 Sodium Chloride 0.9% 250 ml @ Titrate IV .Q0M [facility] Rx#:[id number] Propofol 1,000 mg In 71.464 Empty Bag 1 bag @ Titrate IV .Q0M [facility] Rx#: [id number] Output: Urine 824 680 400 Stool 200 200 Other: Voiding Method Indwelling Catheter Indwelling Catheter Indwelling Catheter ABP, PAP, CO, CI - Last Documented Arterial Blood Pressure - Exam General: Lethargic F, in NAD HEENT: NC/AT, oropharynx dry Cardiovascular: S1/S2 wnl, no murmurs, rubs, or gallops Lungs: Scattered coarse breath sounds, normal respiratory effort, no accessory muscle use Abdominal: Colostomy bag in place, wound-vac in place, suctioning Skin: Warm, dry Extremities: No edema or contractures Neuro: Following commands, non-focal - Labs CBC & Chem 7: 08/01/18 05:30 08/01/18 05:30 Labs: Abnormal Lab Results - Last 24 Hours (Table) 07/31/18 07/31/18 07/31/18 Range/Units 11:57 12:34 14:20 WBC (3.8-10.6) k/uL RBC (3.80-5.40) m/uL Hgb (11.4-16.0) gm/dL Hct (34.0-46.0) % Plt Count (150-450) k/uL Neutrophils # (Manual) (1.3-7.7) k/uL Lymphocytes # (Manual) (1.0-4.8) k/uL Metamyelocytes # (Man) (0) k/uL Myelocytes # (Manual) (0) k/uL ABG pH 7.47 H (7.35-7.45) ABG pCO2 30 L (35-45) mmHg ABG pO2 116 H (83-108) mmHg ABG O2 Saturation 99.5 H (94-97) % ABG Lactic Acid 2.7 H* (0.5-1.6) mmol/L Sodium (137-145) mmol/L Potassium (3.5-5.1) mmol/L Chloride (98-107) mmol/L Carbon Dioxide (22-30) mmol/L Creatinine (0.52-1.04) mg/dL Glucose (74-99) mg/dL POC Glucose (mg/dL) 164 H (75-99) mg/dL Plasma Lactic Acid Cali (0.7-2.0) mmol/L Calcium (8.4-10.2) mg/dL Phosphorus (2.5-4.5) mg/dL Magnesium (1.6-2.3) mg/dL 07/31/18 07/31/18 07/31/18 Range/Units 15:10 18:46 22:15 WBC (3.8-10.6) k/uL RBC (3.80-5.40) m/uL Hgb (11.4-16.0) gm/dL Hct (34.0-46.0) % Plt Count (150-450) k/uL Neutrophils # (Manual) (1.3-7.7) k/uL Lymphocytes # (Manual) (1.0-4.8) k/uL Metamyelocytes # (Man) (0) k/uL Myelocytes # (Manual) (0) k/uL ABG pH (7.35-7.45) ABG pCO2 (35-45) mmHg ABG pO2 (83-108) mmHg ABG O2 Saturation (94-97) % ABG Lactic Acid (0.5-1.6) mmol/L Sodium 136 L (137-145) mmol/L Potassium 2.9 L (3.5-5.1) mmol/L Chloride 111 H (98-107) mmol/L Carbon Dioxide 20 L (22-30) mmol/L Creatinine 0.47 L (0.52-1.04) mg/dL Glucose 147 H (74-99) mg/dL POC Glucose (mg/dL) 142 H (75-99) mg/dL Plasma Lactic Acid Cali 2.8 H* (0.7-2.0) mmol/L Calcium 6.3 L* (8.4-10.2) mg/dL Phosphorus (2.5-4.5) mg/dL Magnesium (1.6-2.3) mg/dL 08/01/18 08/01/18 08/01/18 Range/Units 00:44 01:20 05:30 WBC 11.3 H (3.8-10.6) k/uL RBC 3.18 L (3.80-5.40) m/uL Hgb 9.2 L (11.4-16.0) gm/dL Hct 28.2 L (34.0-46.0) % Plt Count 30 L D (150-450) k/uL Neutrophils # (Manual) 9.90 H (1.3-7.7) k/uL Lymphocytes # (Manual) 0.57 L (1.0-4.8) k/uL Metamyelocytes # (Man) 0.34 H (0) k/uL Myelocytes # (Manual) 0.11 H (0) k/uL ABG pH (7.35-7.45) ABG pCO2 (35-45) mmHg ABG pO2 (83-108) mmHg ABG O2 Saturation (94-97) % ABG Lactic Acid (0.5-1.6) mmol/L Sodium (137-145) mmol/L Potassium 3.2 L (3.5-5.1) mmol/L Chloride (98-107) mmol/L Carbon Dioxide (22-30) mmol/L Creatinine (0.52-1.04) mg/dL Glucose (74-99) mg/dL POC Glucose (mg/dL) 121 H (75-99) mg/dL Plasma Lactic Acid Cali (0.7-2.0) mmol/L Calcium (8.4-10.2) mg/dL Phosphorus (2.5-4.5) mg/dL Magnesium (1.6-2.3) mg/dL 08/01/18 08/01/18 08/01/18 Range/Units 05:30 07:28 11:54 WBC (3.8-10.6) k/uL RBC (3.80-5.40) m/uL Hgb (11.4-16.0) gm/dL Hct (34.0-46.0) % Plt Count (150-450) k/uL Neutrophils # (Manual) (1.3-7.7) k/uL Lymphocytes # (Manual) (1.0-4.8) k/uL Metamyelocytes # (Man) (0) k/uL Myelocytes # (Manual) (0) k/uL ABG pH (7.35-7.45) ABG pCO2 (35-45) mmHg ABG pO2 (83-108) mmHg ABG O2 Saturation (94-97) % ABG Lactic Acid (0.5-1.6) mmol/L Sodium 135 L (137-145) mmol/L Potassium 3.3 L (3.5-5.1) mmol/L Chloride 109 H (98-107) mmol/L Carbon Dioxide (22-30) mmol/L Creatinine 0.40 L (0.52-1.04) mg/dL Glucose 148 H (74-99) mg/dL POC Glucose (mg/dL) 130 H 202 H (75-99) mg/dL Plasma Lactic Acid Cali (0.7-2.0) mmol/L Calcium 6.2 L* (8.4-10.2) mg/dL Phosphorus 1.7 L (2.5-4.5) mg/dL Magnesium 1.5 L (1.6-2.3) mg/dL Microbiology - Last 24 Hours (Table) 07/30/18 09:24 Blood Culture - Preliminary Blood No Growth after 48 hours 07/30/18 08:20 Blood Culture - Preliminary Blood No Growth after 48 hours 07/28/18 14:30 Anaerobic Culture - Preliminary Abdomen Anaerobic Gm Negative Bacilli Anaerobic Gm Negative Bacilli#2 Anaerobic Gm Positive Bacill Anaerobic Gm Negative Bacilli#3 07/28/18 14:30 Gram Stain - Final Cyst Body Fluid Culture - Final Escherichia coli Beta Hemolytic Streptococcus F Alpha Hemolytic Streptococcus Assessment and Plan Plan: Septic shock secondary to diverticular abdscess rupture, s/p ex-lap w/ sigmoid colostomy POD # 2 -Patient on Levophed -IV Abxs as per ID, switched to Flagyl and Unasyn -Normal saline 150 cc/hr. CXR showing some congestion. Patient to be monitored closely. Metabolic acidosis secondary to septic shock, improved C/w IVFs and Abxs Hypokalemia, Hypocalcemia, and hypomagnasemia -Replaced. Will monitor Normocytic anemia with thrombocytopenia -Hematology aware. Will f/u recs. -Likely due to septic shock Leukopenia, resolved DVT//GI prophylaxis -IPCDs -No indication for GI prophylaxis Anticipated discharge date: 08/07/[address]: Home A total of 35 minutes was spent on the care of this complex patient more than 50 % of the time was spent in counseling and care coordination.
--- NOTE | 2018-08-01 13:52 | P.PN ---
Subjective Progress Note Date: 08/01/18 CHIEF COMPLAINT: Abdominal pain HISTORY OF PRESENT ILLNESS: Patient is status post sigmoid colectomy with end colostomy, takedown of splenic flexure, small bowel resection 2, and appendectomy. POD #2. Patient was extubated yesterday. Ostomy to left lower quadrant with clear brownish output. Wound VAC applied to midline incision. Approximately 375 mL out. She remains on levophed at 18mcg/min. She remains mildly hypotensive and tachycardic in the 130s. PHYSICAL EXAM: VITAL SIGNS: Currently stable. GENERAL: Well-developed in no acute distress. HEENT: No sclera icterus. Extraocular movements grossly intact. Moist buccal mucosa. Head is atraumatic, normocephalic. Hears conversational speech. No nasal drainage. NECK: Supple without lymphadenopathy. CHEST: Non-labored respirations and equal bilateral excursions. CARDIOVASCULAR: Regular rate with regular rhythm. Palpable 2+ radial pulses. ABDOMEN: Soft. Nondistended. Ostomy to left lower quadrant with clear brownish output. Wound VAC applied to midline incision MUSCULOSKELETAL: No clubbing, cyanosis or edema. NEUROLOGIC: No focal or lateralizing signs. Cranial nerves II through XII grossly intact. PSYCH: Appropriate affect. Alert and oriented to person, place and time. SKIN: Well perfused. Good skin turgor. ASSESSMENT: 1. Small bowel obstruction with perforated sigmoid colon and fecal peritonitis 2. Status post sigmoid colectomy with end colostomy, takedown of splenic flexure, small bowel resection 2, and appendectomy 3. Possible postoperative ileus PLAN: Continue wound vac. Begin TPN. Patient may have ice chips and popsicles only. Wean Levophed as tolerated. Begin Reglan 10mg Q6 hours Nurse practitioner note has been reviewed by physician. Signing provider agrees with the documented findings, assessment, and plan of care. Objective - Vital Signs Vital signs: Vital Signs Temp 97.9 F 08/01/18 12:00 Pulse 129 H 08/01/18 13:00 Resp 13 08/01/18 13:00 BP 99/50 08/01/18 13:00 Pulse Ox 92 L 08/01/18 13:00 Intake & Output 07/31/18 08/01/18 08/01/18 18:59 06:59 18:59 Intake Total 6284.191 3923.799 1847.854 Output Total 1031 635 0262 Balance 5260.191 3043.799 637.854 Weight 70.6 kg 86.2 kg Intake: IV 6064 3836 1806 0.45 1650 1050 Ampicillin-Sulbactam 3 gm 100 In Sodium Chloride 0.9% 100 ml @ 200 mls/hr IVPB Q6HR [facility] Rx#:[id number] Dextrose 5% in Water 1, 825 900 150 000 ml @ 75 mls/hr IV . [id number] JESSICA with Sodium Bicarb (1 Meq/ml) 150 ml Rx#:[id number] LR 1000 Magnesium Sulfate-D5w Pmx 100 200 1 gm In Dextrose/Water 1 100ml.bag @ 100 mls/hr IVPB Q1H [facility] Rx#: [id number] Magnesium Sulfate-D5w Pmx 200 1 gm In Dextrose/Water 1 100ml.bag @ 100 mls/hr IVPB Q1H [facility] Rx#: [id number] Piperacillin-Tazobactam 3 200 .375 gm In Sodium Chloride 0.9% 100 ml @ 25 mls/hr IVPB Q8HR [facility] Rx# :[id number] Potassium Chloride 20 meq 400 100 In Empty Bag 1 bag @ 50 mls/hr IVPB Q2H [facility] Rx#: [id number] Pressure bag 39 36 6 Sodium Chloride 0.9% 1, 1500 150 000 ml @ 150 mls/hr IV . Q6H40M [facility] Rx#:[id number] Sodium Chloride 0.9% 1, 3000 000 ml @ 999 mls/hr IV . Q1H1M [facility] Rx#:[id number] metroNIDAZOLE-NS PMX 500 100 mg In Saline 1 100ml.bag @ 100 mls/hr IVPB Q8HR [facility] Rx#:[id number] Intake, IV Titration 220.191 87.799 41.854 Amount Norepinephrine 16 mg In 148.727 87.799 41.854 Sodium Chloride 0.9% 250 ml @ Titrate IV .Q0M [facility] Rx#:[id number] Propofol 1,000 mg In 71.464 Empty Bag 1 bag @ Titrate IV .Q0M [facility] Rx#: [id number] Output: Drainage 700 Medial Abdomen 700 Urine 824 680 510 Stool 200 200 Other: Voiding Method Indwelling Catheter Indwelling Catheter Indwelling Catheter ABP, PAP, CO, CI - Last Documented Arterial Blood Pressure - Labs CBC & Chem 7: 08/01/18 12:31 08/01/18 11:50 Labs: Abnormal Lab Results - Last 24 Hours (Table) 07/31/18 07/31/18 07/31/18 Range/Units 14:20 15:10 18:46 WBC (3.8-10.6) k/uL RBC (3.80-5.40) m/uL Hgb (11.4-16.0) gm/dL Hct (34.0-46.0) % Plt Count (150-450) k/uL Neutrophils # (Manual) (1.3-7.7) k/uL Lymphocytes # (Manual) (1.0-4.8) k/uL Metamyelocytes # (Man) (0) k/uL Myelocytes # (Manual) (0) k/uL ABG Lactic Acid 2.7 H* (0.5-1.6) mmol/L Sodium 136 L (137-145) mmol/L Potassium 2.9 L (3.5-5.1) mmol/L Chloride 111 H (98-107) mmol/L Carbon Dioxide 20 L (22-30) mmol/L Creatinine 0.47 L (0.52-1.04) mg/dL Glucose 147 H (74-99) mg/dL POC Glucose (mg/dL) 142 H (75-99) mg/dL Plasma Lactic Acid Cali (0.7-2.0) mmol/L Calcium 6.3 L* (8.4-10.2) mg/dL Phosphorus (2.5-4.5) mg/dL Magnesium (1.6-2.3) mg/dL 07/31/18 08/01/18 08/01/18 Range/Units 22:15 00:44 01:20 WBC (3.8-10.6) k/uL RBC (3.80-5.40) m/uL Hgb (11.4-16.0) gm/dL Hct (34.0-46.0) % Plt Count (150-450) k/uL Neutrophils # (Manual) (1.3-7.7) k/uL Lymphocytes # (Manual) (1.0-4.8) k/uL Metamyelocytes # (Man) (0) k/uL Myelocytes # (Manual) (0) k/uL ABG Lactic Acid (0.5-1.6) mmol/L Sodium (137-145) mmol/L Potassium 3.2 L (3.5-5.1) mmol/L Chloride (98-107) mmol/L Carbon Dioxide (22-30) mmol/L Creatinine (0.52-1.04) mg/dL Glucose (74-99) mg/dL POC Glucose (mg/dL) 121 H (75-99) mg/dL Plasma Lactic Acid Cali 2.8 H* (0.7-2.0) mmol/L Calcium (8.4-10.2) mg/dL Phosphorus (2.5-4.5) mg/dL Magnesium (1.6-2.3) mg/dL 08/01/18 08/01/18 08/01/18 Range/Units 05:30 05:30 07:28 WBC 11.3 H (3.8-10.6) k/uL RBC 3.18 L (3.80-5.40) m/uL Hgb 9.2 L (11.4-16.0) gm/dL Hct 28.2 L (34.0-46.0) % Plt Count 30 L D (150-450) k/uL Neutrophils # (Manual) 9.90 H (1.3-7.7) k/uL Lymphocytes # (Manual) 0.57 L (1.0-4.8) k/uL Metamyelocytes # (Man) 0.34 H (0) k/uL Myelocytes # (Manual) 0.11 H (0) k/uL ABG Lactic Acid (0.5-1.6) mmol/L Sodium 135 L (137-145) mmol/L Potassium 3.3 L (3.5-5.1) mmol/L Chloride 109 H (98-107) mmol/L Carbon Dioxide (22-30) mmol/L Creatinine 0.40 L (0.52-1.04) mg/dL Glucose 148 H (74-99) mg/dL POC Glucose (mg/dL) 130 H (75-99) mg/dL Plasma Lactic Acid Cali (0.7-2.0) mmol/L Calcium 6.2 L* (8.4-10.2) mg/dL Phosphorus 1.7 L (2.5-4.5) mg/dL Magnesium 1.5 L (1.6-2.3) mg/dL 08/01/18 08/01/18 Range/Units 11:54 12:31 WBC 13.1 H (3.8-10.6) k/uL RBC 3.22 L (3.80-5.40) m/uL Hgb 9.4 L (11.4-16.0) gm/dL Hct 28.6 L (34.0-46.0) % Plt Count 25 L (150-450) k/uL Neutrophils # (Manual) (1.3-7.7) k/uL Lymphocytes # (Manual) (1.0-4.8) k/uL Metamyelocytes # (Man) (0) k/uL Myelocytes # (Manual) (0) k/uL ABG Lactic Acid (0.5-1.6) mmol/L Sodium (137-145) mmol/L Potassium (3.5-5.1) mmol/L Chloride (98-107) mmol/L Carbon Dioxide (22-30) mmol/L Creatinine (0.52-1.04) mg/dL Glucose (74-99) mg/dL POC Glucose (mg/dL) 202 H (75-99) mg/dL Plasma Lactic Acid Cali (0.7-2.0) mmol/L Calcium (8.4-10.2) mg/dL Phosphorus (2.5-4.5) mg/dL Magnesium (1.6-2.3) mg/dL Microbiology - Last 24 Hours (Table) 07/28/18 14:30 Anaerobic Culture - Final Abdomen Anaerobic Gm Negative Bacilli Anaerobic Gm Negative Bacilli#2 Anaerobic Gm Positive Bacill Anaerobic Gm Negative Bacilli#3 07/30/18 09:24 Blood Culture - Preliminary Blood No Growth after 48 hours 07/30/18 08:20 Blood Culture - Preliminary Blood No Growth after 48 hours Assessment and Plan (1) Abdominal pain Current Visit: Yes Status: Acute Code(s): R10.9 - UNSPECIFIED ABDOMINAL PAIN SNOMED Code(s): 04803284 (2) Decreased oral intake Current Visit: Yes Status: Acute Code(s): R63.8 - OTHER SYMPTOMS AND SIGNS CONCERNING FOOD AND FLUID INTAKE SNOMED Code(s): 093034189 (3) Colonic diverticular abscess Current Visit: Yes Status: Acute Code(s): K57.20 - DVTRCLI OF LG INT W PERFORATION AND ABSCESS W/O BLEEDING SNOMED Code(s): 078135958 (4) Partial bowel obstruction Current Visit: Yes Status: Acute Code(s): K56.600 - PARTIAL INTESTINAL OBSTRUCTION, UNSPECIFIED TO CAUSE SNOMED Code(s): 12432807
[2018-08-01] MEDS: POTASSIUM PHOSPHATE 10 MMOL in SODIUM CHLORIDE 0.9% 250 ML IV SCH ×2 (13:56→16:00)
[2018-08-01 14:33] LABS: Ionized Calcium 4.2 mg/dL (4.5-5.3)
[2018-08-01 14:43] LABS: Albumin 1.4 g/dL (3.5-5.0)
[2018-08-01] MEDS ORDERED: MVI, ADULT NO.4 WITH VIT K 10 ML, TRACE (CONC-1ML/DOSE) 1 ML in AMINO ACID 5%-D15W+LYTE... IV SCH ×3 (15:00)
[2018-08-01 16:01] LABS: INR 1.1 (<1.2); Prothrombin Time 11.4 sec (9.0-12.0)
[2018-08-01 17:59] LABS: Glucose,Whole Blood 119 mg/dL (75-99)
[2018-08-01] MEDS: METOCLOPRAMIDE 5 MG/ML 2 ML VIAL IVP SCH (18:03)
--- NOTE | 2018-08-01 19:24 | P.PN ---
Subjective Progress Note Date: 08/01/18 Principal diagnosis: coagulopathy, thrombocytopenia, anemia Patient seen today in follow-up, denies bleeding, fevers, unusual bruising, unsure about blood in urine or stool, patient has abdominal pain but feels her pain is managed Objective - Vital Signs Vital signs: Vital Signs Temp 97.8 F 08/01/18 16:00 Pulse 126 H 08/01/18 19:00 Resp 21 08/01/18 19:00 BP 107/61 08/01/18 19:00 Pulse Ox 94 L 08/01/18 19:00 Intake & Output 08/01/18 08/01/18 08/02/18 06:59 18:59 06:59 Intake Total 3923.799 3411.322 210.75 Output Total 880 1860 210 Balance 3043.799 1551.322 0.75 Weight 86.2 kg 86.2 kg Intake: IV 3836 3286 180 0.45 1650 1800 150 Ampicillin-Sulbactam 3 gm 200 In Sodium Chloride 0.9% 100 ml @ 200 mls/hr IVPB Q6HR JESSICA Rx#:[id number] Dextrose 5% in Water 1, 900 150 000 ml @ 75 mls/hr IV . [id number] JESSICA with Sodium Bicarb (1 Meq/ml) 150 ml Rx#:[id number] LR 1000 Magnesium Sulfate-D5w Pmx 200 1 gm In Dextrose/Water 1 100ml.bag @ 100 mls/hr IVPB Q1H EJSSICA Rx#: [id number] Magnesium Sulfate-D5w Pmx 200 1 gm In Dextrose/Water 1 100ml.bag @ 100 mls/hr IVPB Q1H JESSICA Rx#: [id number] Mvi, Adult No.4 with Vit 30 30 K 10 ml Trace (Conc-1Ml/ Dose) 1 ml In Amino Acid 5%-D15w+Lytes*E* 1,000 ml @ 30 mls/hr IV .Q24H JESSICA Rx#:[id number] Potassium Chloride 20 meq 100 In Empty Bag 1 bag @ 50 mls/hr IVPB Q2H JESSICA Rx#: [id number] Potassium Phosphate 10 500 mmol In Sodium Chloride 0 .9% 250 ml @ 125 mls/hr IV Q2H JESSICA Rx#:[id number] Pressure bag 36 6 Sodium Chloride 0.9% 1, 150 000 ml @ 150 mls/hr IV . Q6H40M JESSICA Rx#:[id number] metroNIDAZOLE-NS PMX 500 200 mg In Saline 1 100ml.bag @ 100 mls/hr IVPB Q8HR JESSICA Rx#:[id number] Intake, IV Titration 87.799 125.322 30.75 Amount Norepinephrine 16 mg In 87.799 125.322 30.75 Sodium Chloride 0.9% 250 ml @ Titrate IV .Q0M JESSICA Rx#:[id number] Output: Drainage 1000 150 Medial Abdomen 1000 150 Urine 680 860 60 Stool 200 Other: Voiding Method Indwelling Catheter Indwelling Catheter ABP, PAP, CO, CI - Last Documented Arterial Blood Pressure - Constitutional General appearance: Present: cooperative, no acute distress, obese - EENT Eyes: Present: anicteric sclerae, edentulous ENT: Present: hearing grossly normal - Respiratory Respiratory: bilateral: CTA, diminished - Cardiovascular Details: mild tachycardia, regular rhythm Heart sounds: normal: S1, S2 - Peripheral edema leg Peripheral Edema: bilateral: 2+ - Gastrointestinal Gastrointestinal Comment(s): midline wound VAC, drainage into the wound VAC is pink, not grossly bloody, surrounding skin has no redness, only mild swelling, no drainage, not warm to the touch - Musculoskeletal Musculoskeletal: Present: generalized weakness - Psychiatric Psychiatric: Present: A&O x's 3, appropriate affect - Labs CBC & Chem 7: 08/01/18 12:31 08/01/18 11:50 Labs: Abnormal Lab Results - Last 24 Hours (Table) 07/31/18 08/01/18 08/01/18 Range/Units 22:15 00:44 01:20 WBC (3.8-10.6) k/uL RBC (3.80-5.40) m/uL Hgb (11.4-16.0) gm/dL Hct (34.0-46.0) % Plt Count (150-450) k/uL Neutrophils # (Manual) (1.3-7.7) k/uL Lymphocytes # (Manual) (1.0-4.8) k/uL Metamyelocytes # (Man) (0) k/uL Myelocytes # (Manual) (0) k/uL APTT (22.0-30.0) sec Sodium (137-145) mmol/L Potassium 3.2 L (3.5-5.1) mmol/L Chloride (98-107) mmol/L Creatinine (0.52-1.04) mg/dL Glucose (74-99) mg/dL POC Glucose (mg/dL) 121 H (75-99) mg/dL Plasma Lactic Acid Cali 2.8 H* (0.7-2.0) mmol/L Calcium (8.4-10.2) mg/dL Ionized Calcium Abbi (4.5-5.3) mg/dL Phosphorus (2.5-4.5) mg/dL Magnesium (1.6-2.3) mg/dL Albumin (3.5-5.0) g/dL Triglycerides (<150) mg/dL 08/01/18 08/01/18 08/01/18 Range/Units 05:30 05:30 07:28 WBC 11.3 H (3.8-10.6) k/uL RBC 3.18 L (3.80-5.40) m/uL Hgb 9.2 L (11.4-16.0) gm/dL Hct 28.2 L (34.0-46.0) % Plt Count 30 L D (150-450) k/uL Neutrophils # (Manual) 9.90 H (1.3-7.7) k/uL Lymphocytes # (Manual) 0.57 L (1.0-4.8) k/uL Metamyelocytes # (Man) 0.34 H (0) k/uL Myelocytes # (Manual) 0.11 H (0) k/uL APTT (22.0-30.0) sec Sodium 135 L (137-145) mmol/L Potassium 3.3 L (3.5-5.1) mmol/L Chloride 109 H (98-107) mmol/L Creatinine 0.40 L (0.52-1.04) mg/dL Glucose 148 H (74-99) mg/dL POC Glucose (mg/dL) 130 H (75-99) mg/dL Plasma Lactic Acid Cali (0.7-2.0) mmol/L Calcium 6.2 L* (8.4-10.2) mg/dL Ionized Calcium Abbi (4.5-5.3) mg/dL Phosphorus 1.7 L (2.5-4.5) mg/dL Magnesium 1.5 L (1.6-2.3) mg/dL Albumin (3.5-5.0) g/dL Triglycerides (<150) mg/dL 08/01/18 08/01/18 08/01/18 Range/Units 11:54 12:31 14:02 WBC 13.1 H (3.8-10.6) k/uL RBC 3.22 L (3.80-5.40) m/uL Hgb 9.4 L (11.4-16.0) gm/dL Hct 28.6 L (34.0-46.0) % Plt Count 25 L (150-450) k/uL Neutrophils # (Manual) (1.3-7.7) k/uL Lymphocytes # (Manual) (1.0-4.8) k/uL Metamyelocytes # (Man) (0) k/uL Myelocytes # (Manual) (0) k/uL APTT (22.0-30.0) sec Sodium (137-145) mmol/L Potassium (3.5-5.1) mmol/L Chloride (98-107) mmol/L Creatinine (0.52-1.04) mg/dL Glucose (74-99) mg/dL POC Glucose (mg/dL) 202 H (75-99) mg/dL Plasma Lactic Acid Cali (0.7-2.0) mmol/L Calcium (8.4-10.2) mg/dL Ionized Calcium Abbi 4.2 L (4.5-5.3) mg/dL Phosphorus (2.5-4.5) mg/dL Magnesium (1.6-2.3) mg/dL Albumin 1.4 L (3.5-5.0) g/dL Triglycerides 239 H (<150) mg/dL 08/01/18 08/01/18 Range/Units 15:15 17:57 WBC (3.8-10.6) k/uL RBC (3.80-5.40) m/uL Hgb (11.4-16.0) gm/dL Hct (34.0-46.0) % Plt Count (150-450) k/uL Neutrophils # (Manual) (1.3-7.7) k/uL Lymphocytes # (Manual) (1.0-4.8) k/uL Metamyelocytes # (Man) (0) k/uL Myelocytes # (Manual) (0) k/uL APTT 36.0 H (22.0-30.0) sec Sodium (137-145) mmol/L Potassium (3.5-5.1) mmol/L Chloride (98-107) mmol/L Creatinine (0.52-1.04) mg/dL Glucose (74-99) mg/dL POC Glucose (mg/dL) 119 H (75-99) mg/dL Plasma Lactic Acid Cali (0.7-2.0) mmol/L Calcium (8.4-10.2) mg/dL Ionized Calcium Abbi (4.5-5.3) mg/dL Phosphorus (2.5-4.5) mg/dL Magnesium (1.6-2.3) mg/dL Albumin (3.5-5.0) g/dL Triglycerides (<150) mg/dL Microbiology - Last 24 Hours (Table) 07/28/18 14:30 Anaerobic Culture - Final Abdomen Anaerobic Gm Negative Bacilli Anaerobic Gm Negative Bacilli#2 Anaerobic Gm Positive Bacill Anaerobic Gm Negative Bacilli#3 07/30/18 09:24 Blood Culture - Preliminary Blood No Growth after 48 hours 07/30/18 08:20 Blood Culture - Preliminary Blood No Growth after 48 hours Assessment and Plan (1) Thrombocytopenia Narrative/Plan: Have asked for a redraw the citrate tube. Dr. Robles will be contacted with results and further orders from there. Transfuse with platelets for symptoms or if platelets fall below 10,000 Current Visit: Yes Status: Acute Priority: High Code(s): D69.6 - THROMBOCYTOPENIA, UNSPECIFIED SNOMED Code(s): 223021511 (2) Anemia Narrative/Plan: Anemia workup has been ordered. Suspect multifactorial. Current Visit: Yes Status: Acute Priority: High Code(s): D64.9 - ANEMIA, UNSPECIFIED SNOMED Code(s): 204155802 (3) Coagulopathy Narrative/Plan: Resolved with administration of vitamin K, INR 1.1 today Current Visit: Yes Status: Resolved Code(s): D68.9 - COAGULATION DEFECT, UNSPECIFIED SNOMED Code(s): 27718383
[2018-08-01 22:35] LABS: ABG Base Excess -1.7 mmol/L; ABG HCO3 24 mmol/L (21-25); ABG Oxygen Saturation 83.4 % (94-97); ABG PCO2 44 mmHg (35-45); ABG PH 7.35 (7.35-7.45); ABG TCO2 25 mmol/L (19-24)
[2018-08-01 22:36] LABS: ABG PO2 47 mmHg (83-108)
--- NOTE | 2018-08-01 22:45 | PN ---
PROGRESS NOTE DATE OF SERVICE: 08/01/2018. REASON FOR FOLLOWUP: Abdominal abscess, polymicrobial, from diverticulitis. INTERVAL HISTORY: The patient is currently afebrile. The patient was extubated yesterday. She was doing okay until this morning when the patient did require high-flow oxygen, currently has been on BiPAP. The patient has been on Levophed, though the MR is down to 15 mcgs compared to 22 mcgs this morning. The patient is slightly anxious, lethargic, unable to provide a history. No nausea or vomiting recorded by the nursing staff. PHYSICAL EXAMINATION: Blood pressure 107/61 with a pulse of 126, temperature 98, she is 94% on room air. GENERAL DESCRIPTION: A middle aged female lying in bed in no distress. HEENT: Examination reveals good pallor. LUNGS: Unlabored breathing with decreased breath sounds in the bases. HEART: S1, S2. Regular rate and rhythm. ABDOMEN: No distention, no guarding or rigidity. EXTREMITIES: No edema of the feet. LABS: Hemoglobin 9.4, white count 13.1, blood cultures 1 set has been negative. Abdominal culture with E coli, alpha hemolytic strep anaerobic gram-negative. DIAGNOSTIC IMPRESSION/PLAN: Patient with abdominal abscess from ruptured sigmoid diverticulitis with significant inflammatory changes status post extensive surgery. Cultures revealing E coli, alpha hemolytic streptococcus anaerobic gram-negative, currently covered with Unasyn and Flagyl, to continue while watching the clinical course closely. Family present at bedside. Questions were answered. MMODL / IJN: [id number] /
[2018-08-01] MEDS ORDERED: ETOMIDATE 2 MG/ML 10 ML VIAL ONE (23:00)
[2018-08-01] MEDS ORDERED: PHENYLEPHRINE 10 MG/ML VIAL ONE (23:00)
[2018-08-01] MEDS ORDERED: SUCCINYLCHOLINE CHLORIDE VIAL 200 MG/10 ML VIAL IV ONE (23:00)
[2018-08-01] MEDS: PROPOFOL 1,000 MG in EMPTY BAG 1 BAG IV SCH (23:03)
--- NOTE | 2018-08-01 23:22 | XR ---
EXAMINATION TYPE: XR chest 1V portable DATE OF EXAM: 08/01/2018 COMPARISON: Today HISTORY: Hypoxemia TECHNIQUE: Single frontal view of the chest is obtained. FINDINGS: There is severe pulmonary alveolar edema. There are chest leads. There is left-sided centr al venous catheter with the tip in the right atrium. IMPRESSION: Severe pulmonary edema is much worse than exam this morning.
--- NOTE | 2018-08-01 23:34 | XR ---
EXAMINATION TYPE: XR chest 1V portable DATE OF EXAM: 08/01/2018 COMPARISON: Today HISTORY: Postintubation TECHNIQUE: Single frontal view of the chest is obtained. FINDINGS: Endotracheal tube is in contact with the Dina. There is severe pulmonary edema. There is left-sided central venous catheter with tip in the right atrium. No pneumothorax. IMPRESSION: Endotracheal tube is low and should be pulled back 4 cm. Severe pulmonary edema unchange d.
--- NOTE | 2018-08-01 23:38 | XR ---
EXAMINATION TYPE: XR chest 1V portable DATE OF EXAM: 08/01/2018 COMPARISON: Today HISTORY: Intubation TECHNIQUE: Single frontal view of the chest is obtained. FINDINGS: Endotracheal tube is 1.5 cm from the suresh. There is severe pulmonary edema. There is lef t subclavian catheter with tip in the right atrium. No pneumothorax. IMPRESSION: Severe pulmonary edema unchanged. Endotracheal tube is low in could be pulled back 2 cm.
--- NOTE | 2018-08-02 00:17 | XR ---
EXAMINATION TYPE: XR chest 1V portable DATE OF EXAM: 08/02/2018 COMPARISON: Today HISTORY: Check tube position TECHNIQUE: Single frontal view of the chest is obtained. FINDINGS: Endotracheal tube is 2.5 cm from the suresh and fairly good position. There is severe pulm onary edema unchanged. Left subclavian catheter has tip in the right atrium. No pneumothorax. IMPRESSION: Tubing in good position.
[2018-08-02 00:22] LABS: Glucose,Whole Blood 179 mg/dL (75-99)
[2018-08-02] MEDS: HYDROCORTISONE SUCCINATE 100 MG/2 ML VIAL IV SCH ×4 (00:22→23:52)
[2018-08-02] MEDS: CHLORHEXIDINE GLUCONATE 15 ML CUP MUCOUS MEM SCH ×3 (00:22→20:41)
[2018-08-02] MEDS: INSULIN ASPART (NovoLOG) 100 UNIT/ML VIAL SQ SCH ×3 (00:23→12:40)
[2018-08-02] MEDS: AMPICILLIN-SULBACTAM 3 GM in SODIUM CHLORIDE 0.9% 100 ML IVPB SCH ×5 (00:23→23:49)
[2018-08-02] MEDS: metroNIDAZOLE-NS PMX 500 MG in SALINE 1 100ML.BAG IVPB SCH ×4 (00:24→23:54)
[2018-08-02] MEDS: METOCLOPRAMIDE 5 MG/ML 2 ML VIAL IVP SCH ×5 (00:25→23:54)
[2018-08-02] MEDS: SODIUM CHLORIDE 0.45% 1,000 ML IV SCH ×3 (00:27→09:50)
[2018-08-02] MEDS: HYDROmorphone 0.5 MG/0.5 ML SYRINGE IVP PRN (00:31)
[2018-08-02 00:42] LABS: ABG HCO3 24 mmol/L (21-25); ABG Oxygen Saturation 93.7 % (94-97); ABG PCO2 45 mmHg (35-45); ABG PH 7.33 (7.35-7.45); ABG PO2 77 mmHg (83-108); ABG TCO2 25 mmol/L (19-24)
[2018-08-02 01:26] LABS: Platelet Count 16 k/uL (150-450)
[2018-08-02 01:32] LABS: ALT 33 U/L (9-52); AST 33 U/L (14-36); Albumin 1.4 g/dL (3.5-5.0); Alkaline Phosphatase 72 U/L (38-126); Anion Gap 6 mmol/L; Blood Urea Nitrogen 9 mg/dL (7-17); Carbon Dioxide 23 mmol/L (22-30); Chloride 107 mmol/L (98-107); Glucose 212 mg/dL (74-99); Magnesium 1.8 mg/dL (1.6-2.3); Potassium 3.2 mmol/L (3.5-5.1); Sodium 136 mmol/L (137-145); Total Bilirubin 1.1 mg/dL (0.2-1.3); Total Protein 3.5 g/dL (6.3-8.2)
[2018-08-02 01:40] LABS: Calcium 6.2 mg/dL (8.4-10.2)
[2018-08-02] MEDS ORDERED: Potassium Replacement Protocol 1 EACH MISC MISCELLANE PRN ×2 (01:44→23:18)
[2018-08-02] MEDS: PROPOFOL 1,000 MG in EMPTY BAG 1 BAG IV SCH ×4 (02:37→17:39)
[2018-08-02] MEDS: POTASSIUM CHLORIDE 20 MEQ in WATER FOR INJECTION 1 100ML.BAG IVPB SCH ×5 (02:55→23:54)
[2018-08-02] MEDS: MAGNESIUM SULFATE-D5W PMX 1 GM in DEXTROSE/WATER 1 100ML.BAG IVPB SCH ×2 (02:55→04:01)
[2018-08-02 03:41] LABS: ABG Base Excess -2.7 mmol/L; ABG HCO3 25 mmol/L (21-25); ABG Oxygen Saturation 87.8 % (94-97); ABG PCO2 60 mmHg (35-45); ABG PH 7.23 (7.35-7.45); ABG PO2 60 mmHg (83-108); ABG TCO2 27 mmol/L (19-24)
[2018-08-02 05:25] LABS: HCT 32.3 % (34.0-46.0); HGB 10.1 gm/dL (11.4-16.0); Hypochromasia Moderate; MCH 28.8 pg (25.0-35.0); MCHC 31.4 g/dL (31.0-37.0); MCV 91.8 fL (80.0-100.0); Mean Platelet Volume 10.1; RBC 3.52 m/uL (3.80-5.40); RDW 14.6 % (11.5-15.5); Reticulocyte % 1.2 % (0.5-2.0); WBC 11.5 k/uL (3.8-10.6)
[2018-08-02 05:30] LABS: Platelet Count 25 k/uL (150-450)
[2018-08-02 05:41] LABS: Anion Gap 4 mmol/L; Blood Urea Nitrogen 9 mg/dL (7-17); Carbon Dioxide 23 mmol/L (22-30); Chloride 106 mmol/L (98-107); Glucose 238 mg/dL (74-99); Magnesium 2.4 mg/dL (1.6-2.3); Phosphorus 3.1 mg/dL (2.5-4.5); Potassium 3.6 mmol/L (3.5-5.1); Sodium 133 mmol/L (137-145)
[2018-08-02 05:54] LABS: Calcium 6.2 mg/dL (8.4-10.2)
[2018-08-02 05:59] LABS: Glucose,Whole Blood 220 mg/dL (75-99)
[2018-08-02 06:00] LABS: Band Neutrophils % 13 %; Lymphocytes # (M) 0.58 k/uL (1.0-4.8); Neutrophils % (M) 83 %; Nucleated Red Blood Cells 0 /100 WBC (0-0); Total Cells Counted 200
[2018-08-02 06:01] LABS: Toxic Vacuolation Present
[2018-08-02 06:02] LABS: Toxic Granulation Present
[2018-08-02] MEDS ORDERED: FUROSEMIDE 10 MG/ML 10 ML VIAL IV STA (06:31)
[2018-08-02] MEDS: POTASSIUM CHLORIDE 10 MEQ in WATER FOR INJECTION 1 100ML.BAG IVPB SCH ×2 (07:00→09:48)
[2018-08-02] MEDS ORDERED: POTASSIUM BICARBONATE/CIT AC 20 MEQ TABLET.EFF NG-TUBE SCH (07:00)
[2018-08-02] MEDS: IPRATROPIUM-ALBUTEROL 3 ML NEB INHALATION SCH ×4 (07:13→19:21)
--- NOTE | 2018-08-02 07:34 | XR ---
EXAMINATION TYPE: XR chest 1V portable DATE OF EXAM: 08/02/2018 Comparison: 08/02/2018 Clinical History: 58-year-old female Tube placement Findings: ET tube tip at the level of the medial clavicular heads, satisfactory. Left subclavian CVC tip in the right atrium. Continued bilateral diffuse airspace disease. Impression: Continued bilateral diffuse airspace disease, stable to minimally worsened.
--- NOTE | 2018-08-02 08:25 | CONS ---
CONSULTATION Call attended at 4 in the morning because patient had a left arterial line to the radial artery. Patient has some discoloration of the left thumb. The arterial line was removed 2 days ago. Patient has history of abdominal pain. Patient went for bowel obstruction and she had a bowel resection done and the patient has been intubated. Patient is on Levophed and norepinephrine. Patient was examined and found to have chest is clear, a few crackles. First and second sounds normal. The abdomen, patient had a colostomy. The left arm, patient has ulnar pulse by Doppler. Radial pulse is not present by the Doppler. The left hand has a decent capillary refill except the left big thumb, but capillary refill is reduced. Motor functions are present. Patient has a marked swelling on the dorsum aspect of the hand. Brachial pulses present. At this point, her platelet count is 16,000. Patient will be watched very closely. Will discuss if we can heparinize the patient. We will re-evaluate her again. Thank you chen much. MMODL / IJN: [id number] /
[2018-08-02] MEDS ORDERED: FAT EMULSION 20% 250 ML IV SCH (09:00)
[2018-08-02 09:34] LABS: ABG Base Excess -0.3 mmol/L; ABG HCO3 26 mmol/L (21-25); ABG Oxygen Saturation 98.3 % (94-97); ABG PCO2 52 mmHg (35-45); ABG PH 7.31 (7.35-7.45); ABG PO2 112 mmHg (83-108); ABG TCO2 28 mmol/L (19-24)
[2018-08-02] MEDS: NOREPINEPHRINE 16 MG in SODIUM CHLORIDE 0.9% 250 ML IV SCH (09:49)
[2018-08-02] MEDS: PANTOPRAZOLE 40 MG/10 ML VIAL IVP SCH (09:50)
--- NOTE | 2018-08-02 10:01 | PCN ---
PROCEDURE NOTE ARTERIAL LINE PLACEMENT: Indications: Hemodynamic monitoring. A time-out was completed verifying correct patient, procedure, site, positioning, and implant(s) or special equipment if applicable. Edmundo's test was performed to ensure adequate perfusion. The patient's right wrist was prepped and draped in sterile fashion. 1% Lidocaine was used to anesthetize the area. An 18G Arrow arterial line was introduced into the right radial artery. The catheter was threaded over the guide wire and the needle was removed with appropriate pulsatile blood return. Blood loss was minimal. The catheter was then sutured in place to the skin and a sterile dressing applied. Perfusion to the extremity distal to the point of catheter insertion was checked and found to be adequate. The patient tolerated the procedure well and there were no complications. The patient tolerated procedure well. Good waveform was noted. Line was flushed, it was sutured in place. Sterile dressing was applied by the nursing staff. No immediate complications. MMODL / IJN: [id number] /
--- NOTE | 2018-08-02 10:31 | PN ---
PROGRESS NOTE DATE OF SERVICE: 08/02/2018 This is a 58-year-old female who was admitted back on July 26 for abdominal pain. She was discovered on evaluation at that time to have a bowel obstruction. She went to the operating room on July 30 for an exploratory laparotomy. She ended up with an appendectomy, a colostomy and sigmoid colectomy. She also was found to have an abdominal abscess/diverticular abscess and had suspected abdominal sepsis. She is postop day #3. She was doing well yesterday. As the day progressed, her saturations started to drop. Initially we bumped her oxygen up. In addition, we placed her on BiPAP. Eventually though, her respiratory failure worsened and she became more hypoxemic and we had to reintubate her. In addition, we thought that she probably had relative adrenal insufficiency as her random cortisol level was relatively low. Currently, she is on the volume assist-control mode rate of 22, tidal volume 350, FiO2 100%, PEEP of 13. On similar settings of AC 20, tidal volume 350, 100%, 10 of PEEP, her PO2 of 60, pCO2 of 60 and pH 7.23. An art line was placed. The patient's IVs include a half-normal saline IV 150 to be turned down to 50 mL an hour, norepinephrine at 20 mcg/minute, propofol 40 mcg/kg per minute and TPN at 30 mL an hour. Again, this is postop day #3. Her chest x-ray this morning looks like fluid overload/CHF. She was getting quite a bit of fluid from the TPN of the drips and also the 0.45 IV. She received Lasix 60 mg IV push this morning. We just currently made some vent changes. We dropped the FiO2 down 80% because the repeat gases were much improved. Current vital signs are reviewed her temperature is 98.5, heart rate is 105, respiratory rate 22, blood pressure 102/60, mean 74, saturations are 99%. Her central venous pressure is 12. She is currently sedated. HEENT examination is grossly unremarkable. She has got orally placed endotracheal tube and NG tube. Neck is supple. Full range of motion. No adenopathy or thyromegaly. Neck veins are flat. Cardiovascular examination reveals mild tachycardia. Heart rate 105. S1, S2 normal. Heart sounds are distant. Lungs reveal coarse rhonchi. There is some bibasilar crackles. Abdomen is soft. No bowel sounds. Extremities are intact. Minimal edema. Skin without rash. Neurologic examination could not be properly evaluated because of her current level of sedation. LAB DATA: Reviewed. White count 11.5, hemoglobin 10.1, hematocrit 32.3, platelet count is 25,000. Blood gases have been noted. Sodium 133, potassium 3.6, chloride is 106, CO2 is 23, anion gap is 4, BUN 9, creatinine 0.49. Calcium 6.2, magnesium is 2.4, phosphorus 3.1. Albumin is only 1.4. Microbiology showing all sorts of abnormalities including E coli, alpha and beta- hemolytic strep, and a number of different anaerobes. She is currently on 2 different antibiotics as recommended by Infectious Diseases. Chest x-ray shows a properly placed endotracheal tube. There is diffuse bilateral airspace disease which could represent fluid overload and/or pneumonia and/or ARDS. Medications are reviewed. She is getting Unasyn and Flagyl currently. She is on the other drips that I currently mentioned. The rest of the medications are appropriate and include updrafts as well as typical ICU medications. ASSESSMENT: 1. Postoperative day #3, status post exploratory laparotomy, sigmoid colectomy and colostomy with appendectomy, secondary to acute abdominal sepsis and diverticular abscess. 2. Routine postoperative ventilator management with extubation initially on July 31. 3. Acute hypoxemic respiratory failure secondary to abdominal sepsis and possible ARDS, with re-intubation on this case August 01. 4. Hyperchloremic non-anion gap metabolic acidosis, improved. 5. Previous anion gap metabolic acidosis secondary to lactic acidemia, resolved. 6. Chronic abdominal pain. 7. Leukopenia secondary to sepsis. 8. Thrombocytopenia, which may relate to sepsis. 9. Gastroesophageal reflux disease. 10.Possible adrenal insufficiency, relative in nature. PLAN: The patient's overall situation has certainly worsened significantly. She required re- intubation yesterday for hypoxemic respiratory failure. She is receiving hydrocortisone 100 mg q.8 for relative adrenal insufficiency. We have her back on the volume assist-control mode. A repeat gas was done and the FiO2 was dropped from 100% to 80%. She is on PEEP of 13. An arterial line was placed. She remains on Levophed or norepinephrine at 20 mcg/minute. She gets sedation with propofol 40 mcg/kg per minute. She is on TPN at 30 mL an hour and her 0.45 IV has been turned down to 50 mL an hour. Her culture data is reviewed. Infectious Disease is involved. Additional recommendations and suggestions are forthcoming. Overall prognosis remains very guarded. Critical care time is 36 minutes. ELENA / TEGANN: [id number] /
--- NOTE | 2018-08-02 10:52 | PN ---
PROGRESS NOTE This is a 58-year-old female, she was seen by me in the morning for discoloration of the left hand, big thumb and patient had arterial line placed during the surgery. This patient had a colectomy and a colostomy. Patient is on a ventilator. The patient also is on Levophed and also patient has a platelet count of 16,000. We had discussed with Dr. Topete that patient is not a candidate for heparin because of the low platelets and also patient is very high risk for any surgical intervention. Hand is improving and there is capillary refill noted in the thumb area. The ulnar artery is present by the Doppler, radial at the wrist is no signal from the radial artery. We will watch very closely. Prognosis is guarded. MMODL / IJN: [id number] /
[2018-08-02 12:36] LABS: Glucose,Whole Blood 229 mg/dL (75-99)
--- NOTE | 2018-08-02 14:11 | P.PN ---
Subjective Progress Note Date: 08/02/18 The patient is a 58-year-old female with no significant PMH who presented to the ED for nausea, vomiting, and dehydration with chronic abdominal pain of 6 months duration. In the ED the patient had computed tomography scan of the abdomen which showed a diverticular abscess and partial small bowel obstruction. She was started on IV fluids, and IV antibiotics with a general surgery consult and was admitted for further management. The patient opted for conservative management initially and a percutaneous drain was placed by IR on . The patient also had an elevated PTT and INR for which hematology was consulted and patient was started on Vit K after which the levels normalized. The patient was evaluated by ID and switched from Meropenem to Zosyn. On 07/30, the patient had worsening of her abdominal pain and became tachycardic, leukopenic, and had an elevated lactate. A repeat CT scan w/ contrast was obtained and showed pneumoperitoneum w/ subcutaneous emphysema. Surgery was contacted immediately and the patient was transferred to the MICU. The patient was subsequently taken for an ex-lap for perforated viscus. During the procedure , the patient was noted to have fecal peritonitis and underwent a sigmoid colectomy w/ end colostomy. The patient was transferred back to MICU post- operatively and was started on IV pressors. The patient was extubated on . She continued to require Levophed. ID recommended the patient to be switched to Unasyn and Flagyl. Furthermore, a random cortisol level was drawn and was 22, for which patient was started on hydrocortisone for suspected adrenal insufficiency. On 08/02/18, the patient was in respiratory distress and was re-intubated. Furthermore, she developed L thumb discoloration with hx of A- line placement on that wrist. Vascular surgery was consulted and recommended that in light of the severe thrombocytopenia and interval improvement of the capillary refill of the thumb area that the patient wouldn't undergo surgical intervention. The patient seen at the bedside in the MICU. She was sedated and on the ventilator. Unresponsive to noxious stimuli. Objective - Vital Signs Vital signs: Vital Signs Temp 98.3 F 08/02/18 12:00 Pulse 107 H 08/02/18 13:15 Resp 22 08/02/18 13:15 BP 83/53 08/02/18 09:15 Pulse Ox 99 08/02/18 13:15 Intake & Output 08/01/18 08/02/18 08/02/18 18:59 06:59 18:59 Intake Total 3411.322 3051.951 1146.875 Output Total 1710 2260 3075 Balance 1701.322 791.951 -1928.125 Weight 86.2 kg 85.3 kg Intake: IV 3286 2680 980 0.45 1800 1650 550 Ampicillin-Sulbactam 3 gm 200 200 100 In Sodium Chloride 0.9% 100 ml @ 200 mls/hr IVPB Q6HR [facility] Rx#:[id number] Dextrose 5% in Water 1, 150 000 ml @ 75 mls/hr IV . [id number] [facility] with Sodium Bicarb (1 Meq/ml) 150 ml Rx#:[id number] Magnesium Sulfate-D5w Pmx 200 200 1 gm In Dextrose/Water 1 100ml.bag @ 100 mls/hr IVPB Q1H [facility] Rx#: [id number] Magnesium Sulfate-D5w Pmx 200 200 1 gm In Dextrose/Water 1 100ml.bag @ 100 mls/hr IVPB Q1H [facility] Rx#: [id number] Mvi, Adult No.4 with Vit 30 330 30 K 10 ml Trace (Conc-1Ml/ Dose) 1 ml In Amino Acid 5%-D15w+Lytes*E* 1,000 ml @ 30 mls/hr IV .Q24H [facility] Rx#:[id number] Potassium Chloride 10 meq 200 In Water For Injection 1 100ml.bag @ 100 mls/hr IVPB Q1H [facility] Rx#: [id number] Potassium Phosphate 10 500 mmol In Sodium Chloride 0 .9% 250 ml @ 125 mls/hr IV Q2H [facility] Rx#:[id number] Pressure bag 6 metroNIDAZOLE-NS PMX 500 200 100 100 mg In Saline 1 100ml.bag @ 100 mls/hr IVPB Q8HR [facility] Rx#:[id number] Intake, IV Titration 125.322 371.951 166.875 Amount Norepinephrine 16 mg In 125.322 234.601 66.875 Sodium Chloride 0.9% 250 ml @ Titrate IV .Q0M [facility] Rx#:[id number] Propofol 1,000 mg In 137.350 100 Empty Bag 1 bag @ Titrate IV .Q0M [facility] Rx#: [id number] Output: Drainage 850 1350 800 Left Upper Abdomen 100 Medial Abdomen 850 1250 800 Urine [phone] Other: Voiding Method Indwelling Catheter Indwelling Catheter Indwelling Catheter ABP, PAP, CO, CI - Last Documented Arterial Blood Pressure 112/51 - Exam General: Sedated F, on ventilator HEENT: NC/AT, pinpoint pupils kobe Cardiovascular: S1/S2 wnl, no murmurs, rubs, or gallops Lungs: Scattered coarse breath sounds Abdominal: Colostomy bag in place with yellowish liquid draining, wound-vac in place, bowel sounds absent Skin: Warm, dry Extremities: No edema or contractures Neuro: Unresponsive to noxious stimuli, gag-reflex present - Labs CBC & Chem 7: 08/02/18 04:50 08/02/18 13:00 Labs: Abnormal Lab Results - Last 24 Hours (Table) 08/01/18 08/01/18 08/01/18 Range/Units 14:02 15:15 17:57 WBC (3.8-10.6) k/uL RBC (3.80-5.40) m/uL Hgb (11.4-16.0) gm/dL Hct (34.0-46.0) % Plt Count (150-450) k/uL Neutrophils # (Manual) (1.3-7.7) k/uL Lymphocytes # (Manual) (1.0-4.8) k/uL APTT 36.0 H (22.0-30.0) sec ABG pH (7.35-7.45) ABG pCO2 (35-45) mmHg ABG pO2 (83-108) mmHg ABG HCO3 (21-25) mmol/L ABG Total CO2 (19-24) mmol/L ABG O2 Saturation (94-97) % Sodium (137-145) mmol/L Potassium (3.5-5.1) mmol/L Creatinine (0.52-1.04) mg/dL Glucose (74-99) mg/dL POC Glucose (mg/dL) 119 H (75-99) mg/dL Calcium (8.4-10.2) mg/dL Ionized Calcium Abbi 4.2 L (4.5-5.3) mg/dL Magnesium (1.6-2.3) mg/dL Iron (50-170) ug/dL TIBC (228-460) ug/dL Ferritin (10.0-291.0) ng/mL Total Protein (6.3-8.2) g/dL Albumin 1.4 L (3.5-5.0) g/dL Triglycerides 239 H (<150) mg/dL Vitamin B12 (200.0-944.0) pg/mL 08/01/18 08/01/18 08/02/18 Range/Units 22:28 23:55 00:38 WBC (3.8-10.6) k/uL RBC (3.80-5.40) m/uL Hgb (11.4-16.0) gm/dL Hct (34.0-46.0) % Plt Count (150-450) k/uL Neutrophils # (Manual) (1.3-7.7) k/uL Lymphocytes # (Manual) (1.0-4.8) k/uL APTT (22.0-30.0) sec ABG pH 7.33 L (7.35-7.45) ABG pCO2 (35-45) mmHg ABG pO2 47 L* 77 L (83-108) mmHg ABG HCO3 (21-25) mmol/L ABG Total CO2 25 H 25 H (19-24) mmol/L ABG O2 Saturation 83.4 L 93.7 L (94-97) % Sodium (137-145) mmol/L Potassium (3.5-5.1) mmol/L Creatinine (0.52-1.04) mg/dL Glucose (74-99) mg/dL POC Glucose (mg/dL) 179 H (75-99) mg/dL Calcium (8.4-10.2) mg/dL Ionized Calcium Abbi (4.5-5.3) mg/dL Magnesium (1.6-2.3) mg/dL Iron (50-170) ug/dL TIBC (228-460) ug/dL Ferritin (10.0-291.0) ng/mL Total Protein (6.3-8.2) g/dL Albumin (3.5-5.0) g/dL Triglycerides (<150) mg/dL Vitamin B12 (200.0-944.0) pg/mL 08/02/18 08/02/18 08/02/18 Range/Units 01:10 01:10 03:35 WBC (3.8-10.6) k/uL RBC (3.80-5.40) m/uL Hgb (11.4-16.0) gm/dL Hct (34.0-46.0) % Plt Count 16 L* (150-450) k/uL Neutrophils # (Manual) (1.3-7.7) k/uL Lymphocytes # (Manual) (1.0-4.8) k/uL APTT (22.0-30.0) sec ABG pH 7.23 L (7.35-7.45) ABG pCO2 60 H (35-45) mmHg ABG pO2 60 L (83-108) mmHg ABG HCO3 (21-25) mmol/L ABG Total CO2 27 H (19-24) mmol/L ABG O2 Saturation 87.8 L (94-97) % Sodium 136 L (137-145) mmol/L Potassium 3.2 L (3.5-5.1) mmol/L Creatinine 0.46 L (0.52-1.04) mg/dL Glucose 212 H (74-99) mg/dL POC Glucose (mg/dL) (75-99) mg/dL Calcium 6.2 L* (8.4-10.2) mg/dL Ionized Calcium Abbi (4.5-5.3) mg/dL Magnesium (1.6-2.3) mg/dL Iron (50-170) ug/dL TIBC (228-460) ug/dL Ferritin (10.0-291.0) ng/mL Total Protein 3.5 L (6.3-8.2) g/dL Albumin 1.4 L (3.5-5.0) g/dL Triglycerides (<150) mg/dL Vitamin B12 (200.0-944.0) pg/mL 08/02/18 08/02/18 08/02/18 Range/Units 04:50 04:50 04:50 WBC 11.5 H (3.8-10.6) k/uL RBC 3.52 L (3.80-5.40) m/uL Hgb 10.1 L (11.4-16.0) gm/dL Hct 32.3 L (34.0-46.0) % Plt Count 25 L D (150-450) k/uL Neutrophils # (Manual) 11.00 H (1.3-7.7) k/uL Lymphocytes # (Manual) 0.58 L (1.0-4.8) k/uL APTT (22.0-30.0) sec ABG pH (7.35-7.45) ABG pCO2 (35-45) mmHg ABG pO2 (83-108) mmHg ABG HCO3 (21-25) mmol/L ABG Total CO2 (19-24) mmol/L ABG O2 Saturation (94-97) % Sodium 133 L (137-145) mmol/L Potassium (3.5-5.1) mmol/L Creatinine 0.49 L (0.52-1.04) mg/dL Glucose 238 H (74-99) mg/dL POC Glucose (mg/dL) (75-99) mg/dL Calcium 6.2 L* (8.4-10.2) mg/dL Ionized Calcium Abbi (4.5-5.3) mg/dL Magnesium 2.4 H (1.6-2.3) mg/dL Iron 30 L (50-170) ug/dL TIBC 125 L (228-460) ug/dL Ferritin 643.2 H (10.0-291.0) ng/mL Total Protein (6.3-8.2) g/dL Albumin (3.5-5.0) g/dL Triglycerides (<150) mg/dL Vitamin B12 3174.0 H (200.0-944.0) pg/mL 08/02/18 08/02/18 08/02/18 Range/Units 05:56 09:32 12:21 WBC (3.8-10.6) k/uL RBC (3.80-5.40) m/uL Hgb (11.4-16.0) gm/dL Hct (34.0-46.0) % Plt Count (150-450) k/uL Neutrophils # (Manual) (1.3-7.7) k/uL Lymphocytes # (Manual) (1.0-4.8) k/uL APTT (22.0-30.0) sec ABG pH 7.31 L (7.35-7.45) ABG pCO2 52 H (35-45) mmHg ABG pO2 112 H (83-108) mmHg ABG HCO3 26 H (21-25) mmol/L ABG Total CO2 28 H (19-24) mmol/L ABG O2 Saturation 98.3 H (94-97) % Sodium (137-145) mmol/L Potassium (3.5-5.1) mmol/L Creatinine (0.52-1.04) mg/dL Glucose (74-99) mg/dL POC Glucose (mg/dL) 220 H 229 H (75-99) mg/dL Calcium (8.4-10.2) mg/dL Ionized Calcium Abbi (4.5-5.3) mg/dL Magnesium (1.6-2.3) mg/dL Iron (50-170) ug/dL TIBC (228-460) ug/dL Ferritin (10.0-291.0) ng/mL Total Protein (6.3-8.2) g/dL Albumin (3.5-5.0) g/dL Triglycerides (<150) mg/dL Vitamin B12 (200.0-944.0) pg/mL 08/02/18 Range/Units 13:00 WBC (3.8-10.6) k/uL RBC (3.80-5.40) m/uL Hgb (11.4-16.0) gm/dL Hct (34.0-46.0) % Plt Count (150-450) k/uL Neutrophils # (Manual) (1.3-7.7) k/uL Lymphocytes # (Manual) (1.0-4.8) k/uL APTT (22.0-30.0) sec ABG pH (7.35-7.45) ABG pCO2 (35-45) mmHg ABG pO2 (83-108) mmHg ABG HCO3 (21-25) mmol/L ABG Total CO2 (19-24) mmol/L ABG O2 Saturation (94-97) % Sodium (137-145) mmol/L Potassium 3.4 L (3.5-5.1) mmol/L Creatinine (0.52-1.04) mg/dL Glucose (74-99) mg/dL POC Glucose (mg/dL) (75-99) mg/dL Calcium (8.4-10.2) mg/dL Ionized Calcium Abbi (4.5-5.3) mg/dL Magnesium (1.6-2.3) mg/dL Iron (50-170) ug/dL TIBC (228-460) ug/dL Ferritin (10.0-291.0) ng/mL Total Protein (6.3-8.2) g/dL Albumin (3.5-5.0) g/dL Triglycerides (<150) mg/dL Vitamin B12 (200.0-944.0) pg/mL Microbiology - Last 24 Hours (Table) 08/01/18 23:20 Gram Stain - Preliminary Sputum Sputum Culture - Preliminary 07/30/18 09:24 Blood Culture - Preliminary Blood No Growth after 72 hours 07/30/18 08:20 Blood Culture - Preliminary Blood No Growth after 72 hours 07/28/18 14:30 Anaerobic Culture - Final Abdomen Anaerobic Gm Negative Bacilli Anaerobic Gm Negative Bacilli#2 Anaerobic Gm Positive Bacill Anaerobic Gm Negative Bacilli#3 Assessment and Plan Plan: Septic shock secondary to diverticular abdscess rupture, s/p ex-lap w/ sigmoid colostomy POD # 3 -Patient continues to require Levophed -IV Abxs as per ID, switched to Flagyl and Unasyn -IV fluids decreased to 50 mL per hour Hypoxic respiratory failure requiring mechanical ventilation -Ventilator bundle -Received Lasix 60 mg IVP Hypokalemia, Hypocalcemia, and hypomagnasemia -Replaced. Will monitor Normocytic anemia with thrombocytopenia -Hematology aware. Will f/u recs. -Likely due to septic shock -HIT screen negative L thumb discoloration, impaired capillary refill -As per vascular surgery Leukopenia, resolved DVT//GI prophylaxis -IPCDs -No indication for GI prophylaxis Anticipated discharge date: 08/07/[address]: Home A total of 35 minutes was spent on the care of this complex patient more than 50 % of the time was spent in counseling and care coordination.
--- NOTE | 2018-08-02 14:14 | P.PN ---
Subjective Progress Note Date: 08/02/18 CHIEF COMPLAINT: Abdominal pain HISTORY OF PRESENT ILLNESS: Patient is status post sigmoid colectomy with end colostomy, takedown of splenic flexure, small bowel resection 2, and appendectomy. POD #3. Patient was re-intubated last night. Currently sedated on vent. Wound vac intact. Ostomy with small amount of dark serous fluid. PHYSICAL EXAM: VITAL SIGNS: Currently stable on vasopressors GENERAL: Sedated on ventilator. HEENT: No sclera icterus. Extraocular movements grossly intact. Moist buccal mucosa. Head is atraumatic, normocephalic. No nasal drainage. NECK: Supple without lymphadenopathy. CHEST: Equal bilateral excursions. Currently vented. CARDIOVASCULAR: Tachycardic. Regular rate with regular rhythm. Palpable 2+ radial pulses. ABDOMEN: Soft. Nondistended. Ostomy to left lower quadrant with dark serous output. Wound VAC to midline incision MUSCULOSKELETAL: No clubbing, cyanosis or edema. NEUROLOGIC: Unable to assess secondary to intubation PSYCH: Unable to assess secondary to intubation ASSESSMENT: 1. Small bowel obstruction with perforated sigmoid colon and fecal peritonitis 2. Status post sigmoid colectomy with end colostomy, takedown of splenic flexure, small bowel resection 2, and appendectomy 3. Postoperative ileus PLAN: ICU management per Dr. Topete. Wean Levophed as tolerated. Continue wound vac. Continue TPN. Continue Reglan. Nurse practitioner note has been reviewed by physician. Signing provider agrees with the documented findings, assessment, and plan of care. Objective - Vital Signs Vital signs: Vital Signs Temp 98.3 F 08/02/18 12:00 Pulse 105 H 08/02/18 14:00 Resp 22 08/02/18 14:00 BP 83/53 08/02/18 09:15 Pulse Ox 99 08/02/18 14:00 Intake & Output 08/01/18 08/02/18 08/02/18 18:59 06:59 18:59 Intake Total 3411.322 3051.951 1196.875 Output Total 1710 2260 3375 Balance 1701.322 791.951 -2178.125 Weight 86.2 kg 85.3 kg 85.3 kg Intake: IV 3286 2680 1030 0.45 1800 1650 600 Ampicillin-Sulbactam 3 gm 200 200 100 In Sodium Chloride 0.9% 100 ml @ 200 mls/hr IVPB Q6HR [facility] Rx#:[id number] Dextrose 5% in Water 1, 150 000 ml @ 75 mls/hr IV . [id number] [facility] with Sodium Bicarb (1 Meq/ml) 150 ml Rx#:[id number] Magnesium Sulfate-D5w Pmx 200 200 1 gm In Dextrose/Water 1 100ml.bag @ 100 mls/hr IVPB Q1H [facility] Rx#: [id number] Magnesium Sulfate-D5w Pmx 200 200 1 gm In Dextrose/Water 1 100ml.bag @ 100 mls/hr IVPB Q1H [facility] Rx#: [id number] Mvi, Adult No.4 with Vit 30 330 30 K 10 ml Trace (Conc-1Ml/ Dose) 1 ml In Amino Acid 5%-D15w+Lytes*E* 1,000 ml @ 30 mls/hr IV .Q24H [facility] Rx#:[id number] Potassium Chloride 10 meq 200 In Water For Injection 1 100ml.bag @ 100 mls/hr IVPB Q1H [facility] Rx#: [id number] Potassium Phosphate 10 500 mmol In Sodium Chloride 0 .9% 250 ml @ 125 mls/hr IV Q2H [facility] Rx#:[id number] Pressure bag 6 metroNIDAZOLE-NS PMX 500 200 100 100 mg In Saline 1 100ml.bag @ 100 mls/hr IVPB Q8HR [facility] Rx#:[id number] Intake, IV Titration 125.322 371.951 166.875 Amount Norepinephrine 16 mg In 125.322 234.601 66.875 Sodium Chloride 0.9% 250 ml @ Titrate IV .Q0M [facility] Rx#:[id number] Propofol 1,000 mg In 137.350 100 Empty Bag 1 bag @ Titrate IV .Q0M [facility] Rx#: [id number] Output: Drainage 850 1350 800 Left Upper Abdomen 100 Medial Abdomen 850 1250 800 Urine 697 804 2661 Other: Voiding Method Indwelling Catheter Indwelling Catheter Indwelling Catheter ABP, PAP, CO, CI - Last Documented Arterial Blood Pressure 99/46 - Labs CBC & Chem 7: 08/02/18 04:50 08/02/18 13:00 Labs: Abnormal Lab Results - Last 24 Hours (Table) 08/01/18 08/01/18 08/01/18 Range/Units 14:02 15:15 17:57 WBC (3.8-10.6) k/uL RBC (3.80-5.40) m/uL Hgb (11.4-16.0) gm/dL Hct (34.0-46.0) % Plt Count (150-450) k/uL Neutrophils # (Manual) (1.3-7.7) k/uL Lymphocytes # (Manual) (1.0-4.8) k/uL APTT 36.0 H (22.0-30.0) sec ABG pH (7.35-7.45) ABG pCO2 (35-45) mmHg ABG pO2 (83-108) mmHg ABG HCO3 (21-25) mmol/L ABG Total CO2 (19-24) mmol/L ABG O2 Saturation (94-97) % Sodium (137-145) mmol/L Potassium (3.5-5.1) mmol/L Creatinine (0.52-1.04) mg/dL Glucose (74-99) mg/dL POC Glucose (mg/dL) 119 H (75-99) mg/dL Calcium (8.4-10.2) mg/dL Ionized Calcium Abbi 4.2 L (4.5-5.3) mg/dL Magnesium (1.6-2.3) mg/dL Iron (50-170) ug/dL TIBC (228-460) ug/dL Ferritin (10.0-291.0) ng/mL Total Protein (6.3-8.2) g/dL Albumin 1.4 L (3.5-5.0) g/dL Triglycerides 239 H (<150) mg/dL Vitamin B12 (200.0-944.0) pg/mL 08/01/18 08/01/18 08/02/18 Range/Units 22:28 23:55 00:38 WBC (3.8-10.6) k/uL RBC (3.80-5.40) m/uL Hgb (11.4-16.0) gm/dL Hct (34.0-46.0) % Plt Count (150-450) k/uL Neutrophils # (Manual) (1.3-7.7) k/uL Lymphocytes # (Manual) (1.0-4.8) k/uL APTT (22.0-30.0) sec ABG pH 7.33 L (7.35-7.45) ABG pCO2 (35-45) mmHg ABG pO2 47 L* 77 L (83-108) mmHg ABG HCO3 (21-25) mmol/L ABG Total CO2 25 H 25 H (19-24) mmol/L ABG O2 Saturation 83.4 L 93.7 L (94-97) % Sodium (137-145) mmol/L Potassium (3.5-5.1) mmol/L Creatinine (0.52-1.04) mg/dL Glucose (74-99) mg/dL POC Glucose (mg/dL) 179 H (75-99) mg/dL Calcium (8.4-10.2) mg/dL Ionized Calcium Abbi (4.5-5.3) mg/dL Magnesium (1.6-2.3) mg/dL Iron (50-170) ug/dL TIBC (228-460) ug/dL Ferritin (10.0-291.0) ng/mL Total Protein (6.3-8.2) g/dL Albumin (3.5-5.0) g/dL Triglycerides (<150) mg/dL Vitamin B12 (200.0-944.0) pg/mL 08/02/18 08/02/18 08/02/18 Range/Units 01:10 01:10 03:35 WBC (3.8-10.6) k/uL RBC (3.80-5.40) m/uL Hgb (11.4-16.0) gm/dL Hct (34.0-46.0) % Plt Count 16 L* (150-450) k/uL Neutrophils # (Manual) (1.3-7.7) k/uL Lymphocytes # (Manual) (1.0-4.8) k/uL APTT (22.0-30.0) sec ABG pH 7.23 L (7.35-7.45) ABG pCO2 60 H (35-45) mmHg ABG pO2 60 L (83-108) mmHg ABG HCO3 (21-25) mmol/L ABG Total CO2 27 H (19-24) mmol/L ABG O2 Saturation 87.8 L (94-97) % Sodium 136 L (137-145) mmol/L Potassium 3.2 L (3.5-5.1) mmol/L Creatinine 0.46 L (0.52-1.04) mg/dL Glucose 212 H (74-99) mg/dL POC Glucose (mg/dL) (75-99) mg/dL Calcium 6.2 L* (8.4-10.2) mg/dL Ionized Calcium Abbi (4.5-5.3) mg/dL Magnesium (1.6-2.3) mg/dL Iron (50-170) ug/dL TIBC (228-460) ug/dL Ferritin (10.0-291.0) ng/mL Total Protein 3.5 L (6.3-8.2) g/dL Albumin 1.4 L (3.5-5.0) g/dL Triglycerides (<150) mg/dL Vitamin B12 (200.0-944.0) pg/mL 08/02/18 08/02/18 08/02/18 Range/Units 04:50 04:50 04:50 WBC 11.5 H (3.8-10.6) k/uL RBC 3.52 L (3.80-5.40) m/uL Hgb 10.1 L (11.4-16.0) gm/dL Hct 32.3 L (34.0-46.0) % Plt Count 25 L D (150-450) k/uL Neutrophils # (Manual) 11.00 H (1.3-7.7) k/uL Lymphocytes # (Manual) 0.58 L (1.0-4.8) k/uL APTT (22.0-30.0) sec ABG pH (7.35-7.45) ABG pCO2 (35-45) mmHg ABG pO2 (83-108) mmHg ABG HCO3 (21-25) mmol/L ABG Total CO2 (19-24) mmol/L ABG O2 Saturation (94-97) % Sodium 133 L (137-145) mmol/L Potassium (3.5-5.1) mmol/L Creatinine 0.49 L (0.52-1.04) mg/dL Glucose 238 H (74-99) mg/dL POC Glucose (mg/dL) (75-99) mg/dL Calcium 6.2 L* (8.4-10.2) mg/dL Ionized Calcium Abbi (4.5-5.3) mg/dL Magnesium 2.4 H (1.6-2.3) mg/dL Iron 30 L (50-170) ug/dL TIBC 125 L (228-460) ug/dL Ferritin 643.2 H (10.0-291.0) ng/mL Total Protein (6.3-8.2) g/dL Albumin (3.5-5.0) g/dL Triglycerides (<150) mg/dL Vitamin B12 3174.0 H (200.0-944.0) pg/mL 08/02/18 08/02/18 08/02/18 Range/Units 05:56 09:32 12:21 WBC (3.8-10.6) k/uL RBC (3.80-5.40) m/uL Hgb (11.4-16.0) gm/dL Hct (34.0-46.0) % Plt Count (150-450) k/uL Neutrophils # (Manual) (1.3-7.7) k/uL Lymphocytes # (Manual) (1.0-4.8) k/uL APTT (22.0-30.0) sec ABG pH 7.31 L (7.35-7.45) ABG pCO2 52 H (35-45) mmHg ABG pO2 112 H (83-108) mmHg ABG HCO3 26 H (21-25) mmol/L ABG Total CO2 28 H (19-24) mmol/L ABG O2 Saturation 98.3 H (94-97) % Sodium (137-145) mmol/L Potassium (3.5-5.1) mmol/L Creatinine (0.52-1.04) mg/dL Glucose (74-99) mg/dL POC Glucose (mg/dL) 220 H 229 H (75-99) mg/dL Calcium (8.4-10.2) mg/dL Ionized Calcium Abbi (4.5-5.3) mg/dL Magnesium (1.6-2.3) mg/dL Iron (50-170) ug/dL TIBC (228-460) ug/dL Ferritin (10.0-291.0) ng/mL Total Protein (6.3-8.2) g/dL Albumin (3.5-5.0) g/dL Triglycerides (<150) mg/dL Vitamin B12 (200.0-944.0) pg/mL 08/02/18 Range/Units 13:00 WBC (3.8-10.6) k/uL RBC (3.80-5.40) m/uL Hgb (11.4-16.0) gm/dL Hct (34.0-46.0) % Plt Count (150-450) k/uL Neutrophils # (Manual) (1.3-7.7) k/uL Lymphocytes # (Manual) (1.0-4.8) k/uL APTT (22.0-30.0) sec ABG pH (7.35-7.45) ABG pCO2 (35-45) mmHg ABG pO2 (83-108) mmHg ABG HCO3 (21-25) mmol/L ABG Total CO2 (19-24) mmol/L ABG O2 Saturation (94-97) % Sodium (137-145) mmol/L Potassium 3.4 L (3.5-5.1) mmol/L Creatinine (0.52-1.04) mg/dL Glucose (74-99) mg/dL POC Glucose (mg/dL) (75-99) mg/dL Calcium (8.4-10.2) mg/dL Ionized Calcium Abbi (4.5-5.3) mg/dL Magnesium (1.6-2.3) mg/dL Iron (50-170) ug/dL TIBC (228-460) ug/dL Ferritin (10.0-291.0) ng/mL Total Protein (6.3-8.2) g/dL Albumin (3.5-5.0) g/dL Triglycerides (<150) mg/dL Vitamin B12 (200.0-944.0) pg/mL Microbiology - Last 24 Hours (Table) 08/01/18 23:20 Gram Stain - Preliminary Sputum Sputum Culture - Preliminary 07/30/18 09:24 Blood Culture - Preliminary Blood No Growth after 72 hours 07/30/18 08:20 Blood Culture - Preliminary Blood No Growth after 72 hours 07/28/18 14:30 Anaerobic Culture - Final Abdomen Anaerobic Gm Negative Bacilli Anaerobic Gm Negative Bacilli#2 Anaerobic Gm Positive Bacill Anaerobic Gm Negative Bacilli#3 Assessment and Plan (1) Abdominal pain Current Visit: Yes Status: Acute Code(s): R10.9 - UNSPECIFIED ABDOMINAL PAIN SNOMED Code(s): 14624312 (2) Decreased oral intake Current Visit: Yes Status: Acute Code(s): R63.8 - OTHER SYMPTOMS AND SIGNS CONCERNING FOOD AND FLUID INTAKE SNOMED Code(s): 497914500 (3) Colonic diverticular abscess Current Visit: Yes Status: Acute Code(s): K57.20 - DVTRCLI OF LG INT W PERFORATION AND ABSCESS W/O BLEEDING SNOMED Code(s): 084504949 (4) Partial bowel obstruction Current Visit: Yes Status: Acute Code(s): K56.600 - PARTIAL INTESTINAL OBSTRUCTION, UNSPECIFIED TO CAUSE SNOMED Code(s): 45042301
[2018-08-02] MEDS: CALCIUM GLUCONATE 1,000 MG in SODIUM CHLORIDE 0.9% 100 ML IVPB SCH ×2 (15:09→16:21)
--- NOTE | 2018-08-02 16:46 | P.PN ---
Subjective Progress Note Date: 08/02/18 Principal diagnosis: coagulopathy, thrombocytopenia, anemia Pt seen ICU, she is now intubated and mechanically ventilated. NAD noted, no lines have blood in them, wound vac drainage is clear Objective - Vital Signs Vital signs: Vital Signs Temp 98.3 F 08/02/18 12:00 Pulse 94 08/02/18 15:31 Resp 22 08/02/18 15:00 BP 83/53 08/02/18 09:15 Pulse Ox 99 08/02/18 15:00 Intake & Output 08/01/18 08/02/18 08/02/18 18:59 06:59 18:59 Intake Total 3411.322 3051.951 1396.875 Output Total 1710 2260 4425 Balance 1701.322 791.951 -3028.125 Weight 86.2 kg 85.3 kg 85.3 kg Intake: IV 3286 2680 1230 0.45 1800 1650 700 Ampicillin-Sulbactam 3 gm 200 200 100 In Sodium Chloride 0.9% 100 ml @ 200 mls/hr IVPB Q6HR JESSICA Rx#:[id number] Dextrose 5% in Water 1, 150 000 ml @ 75 mls/hr IV . [id number] JESSICA with Sodium Bicarb (1 Meq/ml) 150 ml Rx#:[id number] Magnesium Sulfate-D5w Pmx 200 200 1 gm In Dextrose/Water 1 100ml.bag @ 100 mls/hr IVPB Q1H JESSICA Rx#: [id number] Magnesium Sulfate-D5w Pmx 200 200 1 gm In Dextrose/Water 1 100ml.bag @ 100 mls/hr IVPB Q1H [facility] Rx#: [id number] Mvi, Adult No.4 with Vit 30 330 30 K 10 ml Trace (Conc-1Ml/ Dose) 1 ml In Amino Acid 5%-D15w+Lytes*E* 1,000 ml @ 30 mls/hr IV .Q24H JESSICA Rx#:[id number] Potassium Chloride 10 meq 200 In Water For Injection 1 100ml.bag @ 100 mls/hr IVPB Q1H JESSICA Rx#: [id number] Potassium Phosphate 10 500 mmol In Sodium Chloride 0 .9% 250 ml @ 125 mls/hr IV Q2H JESSICA Rx#:[id number] Pressure bag 6 metroNIDAZOLE-NS PMX 500 200 100 200 mg In Saline 1 100ml.bag @ 100 mls/hr IVPB Q8HR JESS[facility] Rx#:[id number] Intake, IV Titration 125.322 371.951 166.875 Amount Norepinephrine 16 mg In 125.322 234.601 66.875 Sodium Chloride 0.9% 250 ml @ Titrate IV .Q0M JESSICA Rx#:[id number] Propofol 1,000 mg In 137.350 100 Empty Bag 1 bag @ Titrate IV .Q0M JESSICA Rx#: [id number] Output: Drainage 850 1350 1250 Left Upper Abdomen 100 Medial Abdomen 850 1250 1250 Urine 929 039 8983 Other: Voiding Method Indwelling Catheter Indwelling Catheter Indwelling Catheter ABP, PAP, CO, CI - Last Documented Arterial Blood Pressure 95/45 - Exam See HPI - Labs CBC & Chem 7: 08/02/18 04:50 08/02/18 13:00 Labs: Abnormal Lab Results - Last 24 Hours (Table) 08/01/18 08/01/18 08/01/18 Range/Units 17:57 22:28 23:55 WBC (3.8-10.6) k/uL RBC (3.80-5.40) m/uL Hgb (11.4-16.0) gm/dL Hct (34.0-46.0) % Plt Count (150-450) k/uL Neutrophils # (Manual) (1.3-7.7) k/uL Lymphocytes # (Manual) (1.0-4.8) k/uL ABG pH (7.35-7.45) ABG pCO2 (35-45) mmHg ABG pO2 47 L* (83-108) mmHg ABG HCO3 (21-25) mmol/L ABG Total CO2 25 H (19-24) mmol/L ABG O2 Saturation 83.4 L (94-97) % Sodium (137-145) mmol/L Potassium (3.5-5.1) mmol/L Creatinine (0.52-1.04) mg/dL Glucose (74-99) mg/dL POC Glucose (mg/dL) 119 H 179 H (75-99) mg/dL Calcium (8.4-10.2) mg/dL Magnesium (1.6-2.3) mg/dL Iron (50-170) ug/dL TIBC (228-460) ug/dL Ferritin (10.0-291.0) ng/mL Total Protein (6.3-8.2) g/dL Albumin (3.5-5.0) g/dL Vitamin B12 (200.0-944.0) pg/mL 08/02/18 08/02/18 08/02/18 Range/Units 00:38 01:10 01:10 WBC (3.8-10.6) k/uL RBC (3.80-5.40) m/uL Hgb (11.4-16.0) gm/dL Hct (34.0-46.0) % Plt Count 16 L* (150-450) k/uL Neutrophils # (Manual) (1.3-7.7) k/uL Lymphocytes # (Manual) (1.0-4.8) k/uL ABG pH 7.33 L (7.35-7.45) ABG pCO2 (35-45) mmHg ABG pO2 77 L (83-108) mmHg ABG HCO3 (21-25) mmol/L ABG Total CO2 25 H (19-24) mmol/L ABG O2 Saturation 93.7 L (94-97) % Sodium 136 L (137-145) mmol/L Potassium 3.2 L (3.5-5.1) mmol/L Creatinine 0.46 L (0.52-1.04) mg/dL Glucose 212 H (74-99) mg/dL POC Glucose (mg/dL) (75-99) mg/dL Calcium 6.2 L* (8.4-10.2) mg/dL Magnesium (1.6-2.3) mg/dL Iron (50-170) ug/dL TIBC (228-460) ug/dL Ferritin (10.0-291.0) ng/mL Total Protein 3.5 L (6.3-8.2) g/dL Albumin 1.4 L (3.5-5.0) g/dL Vitamin B12 (200.0-944.0) pg/mL 08/02/18 08/02/18 08/02/18 Range/Units 03:35 04:50 04:50 WBC 11.5 H (3.8-10.6) k/uL RBC 3.52 L (3.80-5.40) m/uL Hgb 10.1 L (11.4-16.0) gm/dL Hct 32.3 L (34.0-46.0) % Plt Count 25 L D (150-450) k/uL Neutrophils # (Manual) 11.00 H (1.3-7.7) k/uL Lymphocytes # (Manual) 0.58 L (1.0-4.8) k/uL ABG pH 7.23 L (7.35-7.45) ABG pCO2 60 H (35-45) mmHg ABG pO2 60 L (83-108) mmHg ABG HCO3 (21-25) mmol/L ABG Total CO2 27 H (19-24) mmol/L ABG O2 Saturation 87.8 L (94-97) % Sodium (137-145) mmol/L Potassium (3.5-5.1) mmol/L Creatinine (0.52-1.04) mg/dL Glucose (74-99) mg/dL POC Glucose (mg/dL) (75-99) mg/dL Calcium (8.4-10.2) mg/dL Magnesium (1.6-2.3) mg/dL Iron 30 L (50-170) ug/dL TIBC 125 L (228-460) ug/dL Ferritin 643.2 H (10.0-291.0) ng/mL Total Protein (6.3-8.2) g/dL Albumin (3.5-5.0) g/dL Vitamin B12 3174.0 H (200.0-944.0) pg/mL 08/02/18 08/02/18 08/02/18 Range/Units 04:50 05:56 09:32 WBC (3.8-10.6) k/uL RBC (3.80-5.40) m/uL Hgb (11.4-16.0) gm/dL Hct (34.0-46.0) % Plt Count (150-450) k/uL Neutrophils # (Manual) (1.3-7.7) k/uL Lymphocytes # (Manual) (1.0-4.8) k/uL ABG pH 7.31 L (7.35-7.45) ABG pCO2 52 H (35-45) mmHg ABG pO2 112 H (83-108) mmHg ABG HCO3 26 H (21-25) mmol/L ABG Total CO2 28 H (19-24) mmol/L ABG O2 Saturation 98.3 H (94-97) % Sodium 133 L (137-145) mmol/L Potassium (3.5-5.1) mmol/L Creatinine 0.49 L (0.52-1.04) mg/dL Glucose 238 H (74-99) mg/dL POC Glucose (mg/dL) 220 H (75-99) mg/dL Calcium 6.2 L* (8.4-10.2) mg/dL Magnesium 2.4 H (1.6-2.3) mg/dL Iron (50-170) ug/dL TIBC (228-460) ug/dL Ferritin (10.0-291.0) ng/mL Total Protein (6.3-8.2) g/dL Albumin (3.5-5.0) g/dL Vitamin B12 (200.0-944.0) pg/mL 08/02/18 08/02/18 Range/Units 12:21 13:00 WBC (3.8-10.6) k/uL RBC (3.80-5.40) m/uL Hgb (11.4-16.0) gm/dL Hct (34.0-46.0) % Plt Count (150-450) k/uL Neutrophils # (Manual) (1.3-7.7) k/uL Lymphocytes # (Manual) (1.0-4.8) k/uL ABG pH (7.35-7.45) ABG pCO2 (35-45) mmHg ABG pO2 (83-108) mmHg ABG HCO3 (21-25) mmol/L ABG Total CO2 (19-24) mmol/L ABG O2 Saturation (94-97) % Sodium (137-145) mmol/L Potassium 3.4 L (3.5-5.1) mmol/L Creatinine (0.52-1.04) mg/dL Glucose (74-99) mg/dL POC Glucose (mg/dL) 229 H (75-99) mg/dL Calcium (8.4-10.2) mg/dL Magnesium (1.6-2.3) mg/dL Iron (50-170) ug/dL TIBC (228-460) ug/dL Ferritin (10.0-291.0) ng/mL Total Protein (6.3-8.2) g/dL Albumin (3.5-5.0) g/dL Vitamin B12 (200.0-944.0) pg/mL Microbiology - Last 24 Hours (Table) 08/01/18 23:20 Gram Stain - Preliminary Sputum Sputum Culture - Preliminary 07/30/18 09:24 Blood Culture - Preliminary Blood No Growth after 72 hours 07/30/18 08:20 Blood Culture - Preliminary Blood No Growth after 72 hours 07/28/18 14:30 Anaerobic Culture - Final Abdomen Anaerobic Gm Negative Bacilli Anaerobic Gm Negative Bacilli#2 Anaerobic Gm Positive Bacill Anaerobic Gm Negative Bacilli#3 Assessment and Plan (1) Thrombocytopenia Narrative/Plan: Plt count low but stable, no gross s/s of infection HIT ab negative Transfuse for symptoms or plt <10,000 CBC daily No asa, NSAIDs, anticoagulation SCDs for DVT prophylaxis Current Visit: Yes Status: Acute Priority: High Code(s): D69.6 - THROMBOCYTOPENIA, UNSPECIFIED SNOMED Code(s): 162168189 (2) Anemia Narrative/Plan: Hgb stable, no correctable deficiency on resulted labs. Transfuse for Hgb < 7 or if symptomatic Current Visit: Yes Status: Acute Priority: High Code(s): D64.9 - ANEMIA, UNSPECIFIED SNOMED Code(s): 963755407 (3) Coagulopathy Narrative/Plan: Coags have been WNL after vit K adm. No s/s bleeding at this time. No evidence to suggest DIC at this time. Cont intermittent coag studies Current Visit: Yes Status: Resolved Code(s): D68.9 - COAGULATION DEFECT, UNSPECIFIED SNOMED Code(s): 56149065
[2018-08-02] MEDS ORDERED: INSULIN REGULAR BOLUS (FROM DRIP BAG) IV PRN (17:32)
[2018-08-02] MEDS: INSULIN REGULAR 100 UNIT in SODIUM CHLORIDE 0.9% 100 ML IV SCH (18:24)
[2018-08-02 18:31] LABS: Glucose,Whole Blood 226 mg/dL (75-99)
[2018-08-02 18:31] LABS: Glucose,Whole Blood 227 mg/dL (75-99)
[2018-08-02 18:58] LABS: Glucose,Whole Blood 178 mg/dL (75-99)
[2018-08-02 20:26] LABS: Glucose,Whole Blood 196 mg/dL (75-99)
[2018-08-02 22:08] LABS: Glucose,Whole Blood 203 mg/dL (75-99)
--- NOTE | 2018-08-02 22:27 | PN ---
PROGRESS NOTE DATE OF SERVICE: 08/02/2018 REASON FOR FOLLOWUP: Abdominal sepsis from ruptured diverticulitis. INTERVAL HISTORY: The patient is afebrile. The patient went into respiratory distress and had to be re- intubated. The patient is currently on 19 mcg of Levophed, sedated on the vent and unable to provide any history. PHYSICAL EXAMINATION: Blood pressure 94/45 with a pulse of 101, temperature of 98.3. She is 99% on 60% FiO2. General description is a middle-aged female, intubated on the vent. HEENT examination shows pallor. The patient is orally intubated. LUNGS: Unlabored breathing. Decreased breath sounds in the bases. HEART: S1, S2. Regular rate and rhythm. ABDOMEN: Soft wound is covered with a wound V.A.C. EXTREMITIES: No edema of the feet. LABS: Hemoglobin is 10.1, white count 11.5 compared to 13.1 yesterday. Platelet count is up to 25 as well. BUN of 9, creatinine 0.49. Electrolytes have been normal. Lactic acid 1.6. DIAGNOSTIC IMPRESSION AND PLAN: Patient with abdominal abscess in this patient who did have ruptured diverticulitis. The patient is status post laparotomy with extensive surgery and a diverting colostomy. The patient did have acute respiratory failure and got intubated last night. Patient is currently afebrile. White count is down compared to yesterday. Lactic acid has been normal as well. The patient's abdominal culture did grow Escherichia coli, alpha and beta hemolytic Streptococcus and anaerobic gram-negative bacilli in a patient who is currently on Unasyn 3 grams q.6 and Flagyl; to continue while waiting for her condition to stabilize. Overall prognosis remains guarded. Continue supportive care. MMODL / IJN: [id number] /
[2018-08-02 23:04] LABS: Glucose,Whole Blood 209 mg/dL (75-99)
[2018-08-02] MEDS: IPRATROPIUM-ALBUTEROL 3 ML NEB INHALATION PRN (23:04)
[2018-08-03] MEDS: PROPOFOL 1,000 MG in EMPTY BAG 1 BAG IV SCH ×4 (00:02→15:14)
[2018-08-03] MEDS: NOREPINEPHRINE 16 MG in SODIUM CHLORIDE 0.9% 250 ML IV SCH (00:05)
[2018-08-03] MEDS: HYDROmorphone 0.5 MG/0.5 ML SYRINGE IVP PRN ×2 (00:16→16:05)
[2018-08-03] MEDS: MVI, ADULT NO.4 WITH VIT K 10 ML, TRACE (CONC-1ML/DOSE) 1 ML in AMINO ACID 5%-D15W+LYTE... IV SCH ×6 (00:27→20:12)
[2018-08-03 01:25] LABS: Glucose,Whole Blood 171 mg/dL (75-99)
[2018-08-03] MEDS: POTASSIUM CHLORIDE 20 MEQ in WATER FOR INJECTION 1 100ML.BAG IVPB SCH ×5 (01:56→17:29)
[2018-08-03 02:03] LABS: Glucose,Whole Blood 157 mg/dL (75-99)
[2018-08-03] MEDS: IPRATROPIUM-ALBUTEROL 3 ML NEB INHALATION PRN ×2 (03:06→23:13)
[2018-08-03 03:41] LABS: Glucose,Whole Blood 171 mg/dL (75-99)
[2018-08-03] MEDS: SODIUM CHLORIDE 0.45% 1,000 ML IV SCH (04:19)
[2018-08-03 04:32] LABS: Anion Gap 1 mmol/L; Blood Urea Nitrogen 11 mg/dL (7-17); Calcium 6.8 mg/dL (8.4-10.2); Carbon Dioxide 28 mmol/L (22-30); Chloride 110 mmol/L (98-107); Glucose 153 mg/dL (74-99); Phosphorus 2.3 mg/dL (2.5-4.5); Potassium 3.5 mmol/L (3.5-5.1); Sodium 139 mmol/L (137-145)
[2018-08-03 04:43] LABS: HCT 26.1 % (34.0-46.0); HGB 8.8 gm/dL (11.4-16.0); Hypochromasia Slight; MCH 30.5 pg (25.0-35.0); MCHC 33.5 g/dL (31.0-37.0); MCV 90.9 fL (80.0-100.0); Mean Platelet Volume 10.4; RBC 2.88 m/uL (3.80-5.40); RDW 14.4 % (11.5-15.5); WBC 7.4 k/uL (3.8-10.6)
[2018-08-03 04:44] LABS: Platelet Count 20 k/uL (150-450)
[2018-08-03 05:02] LABS: Glucose,Whole Blood 142 mg/dL (75-99)
[2018-08-03 05:05] LABS: Band Neutrophils % 4 %; Lymphocytes # (M) 0.81 k/uL (1.0-4.8); Monocytes # (M) 0.44 k/uL (0-1.0); Neutrophils % (M) 79 %; Nucleated Red Blood Cells 0 /100 WBC (0-0); Total Cells Counted 100
[2018-08-03 05:05] LABS: ABG Base Excess 2.7 mmol/L; ABG HCO3 28 mmol/L (21-25); ABG Oxygen Saturation 99.1 % (94-97); ABG PCO2 49 mmHg (35-45); ABG PH 7.37 (7.35-7.45); ABG PO2 155 mmHg (83-108); ABG TCO2 30 mmol/L (19-24)
[2018-08-03] MEDS ORDERED: POTASSIUM PHOSPHATE 10 MMOL in SODIUM CHLORIDE 0.9% 250 ML IV ONE (05:13)
[2018-08-03] MEDS ORDERED: Phosphorus Replacement Protoco 1 EACH MISC MISCELLANE PRN (05:13)
[2018-08-03] MEDS: AMPICILLIN-SULBACTAM 3 GM in SODIUM CHLORIDE 0.9% 100 ML IVPB SCH ×4 (05:20→23:04)
[2018-08-03] MEDS: METOCLOPRAMIDE 5 MG/ML 2 ML VIAL IVP SCH ×4 (05:20→23:04)
[2018-08-03 06:07] LABS: Glucose,Whole Blood 154 mg/dL (75-99)
[2018-08-03] MEDS: IPRATROPIUM-ALBUTEROL 3 ML NEB INHALATION SCH ×4 (07:06→19:34)
[2018-08-03] MEDS ORDERED: FUROSEMIDE 10 MG/ML 4 ML VIAL IV STA (07:21)
--- NOTE | 2018-08-03 08:02 | PN ---
PROGRESS NOTE DATE OF SERVICE: August 03, 2018 This is a 58-year-old female admitted back on July 26 for abdominal pain. She was found to have a bowel obstruction. She is postop day #4, status post exploratory laparotomy, sigmoid colectomy and colostomy, and appendectomy. The patient was found to have acute abdominal sepsis and diverticular abscess. She was initially extubated on July 31, but unfortunately was re-intubated on the . She seems to have developed septic ARDS. She has acute hypoxemic respiratory failure, likely secondary to the acute respiratory distress syndrome. She currently remains on the ventilator. Her chest x-ray has shown some improvement. She was given some Lasix yesterday and diuresed well. Yesterday, she was about 3 L negative. Currently, she is on the volume assist-control mode rate of 22, tidal volume 350, FiO2 60% to be dropped to 50% and PEEP of 13. Blood gases on the PEEP of 13 show a PaO2 of 155, a PaCO2 of 49, and a pH of 7.37. Currently, she is on propofol at 35 mcg/kg per minute, insulin at 3 units/hour, norepinephrine at 18 mcg/minute, and half-normal saline IV at 50 mL an hour and TPN running at 45 mL an hour. She is currently sedated well. A radial art line was reinserted yesterday. Current vital signs are reviewed. Temperature is 97.6, heart rate 84, respiratory rate 22, and blood pressure is 100/55. Central venous pressure is 15. Saturations are in the high 90s. Appears in no acute distress, currently sedated. HEENT examination is grossly unremarkable. There is an orally placed endotracheal tube and NG tube. NECK: Supple. Full range of motion. No adenopathy. Neck veins are flat. Cardiovascular examination reveals regular rhythm and rate. Heart rate in the mid 80s. S1, S2 normal. No distinct murmur noted. Lungs reveal coarse bilateral rhonchi. Breath sounds equal bilaterally. No crackles. No wheezes. Abdomen is soft. Bowel sounds are not heard. Extremities are intact. Minimal edema. Skin without rash. Neurologic examination could not be properly assessed. Chest x-ray continues to show diffuse bilateral infiltrates. Labs are reviewed. White count of 7.4, hemoglobin 8.8, hematocrit 26.1, platelet count 20,000. Blood gases have been noted. Sodium 139, potassium 3.5, chloride 110, CO2 of 28, anion gap is 1. BUN and creatinine is 11 and 0.62. Microbiologic studies show evidence of E coli in the body fluids from the abdomen. There is also alpha and beta-hemolytic Streptococcus as well as a number of anaerobic bacteria. Medications are reviewed. Of note is the fact that she is on Unasyn and Flagyl. ASSESSMENT: 1. Postoperative day #4, status post exploratory laparotomy and sigmoid colectomy and colostomy, appendectomy secondary to acute abdominal sepsis and diverticular abscess. 2. Routine postoperative ventilator management with extubation initially on July 31 and re-intubation on August 01 for acute hypoxemic respiratory failure. 3. Acute respiratory distress syndrome secondary to abdominal sepsis. 4. Hyperchloremic non-anion gap metabolic acidosis, improved. 5. Previous anion gap metabolic acidosis, resolved, secondary to lactic acidosis. 6. Chronic abdominal pain. 7. Leukopenia. 8. Sepsis related thrombocytopenia. 9. Gastroesophageal reflux disease. 10.Relative adrenal insufficiency. PLAN: An art line was replaced yesterday. The patient continues to have the FiO2 dropped. She does have acute respiratory distress syndrome. Her PF ratio is relatively low. The patient remains on 13 of PEEP. If she is stable on 50% today, I will make PEEP change downward. She remains on a number of different drips. I will give the patient some additional Lasix today. Overall prognosis remains guarded. We will continue to follow closely. Infectious Disease is following. Surgery is following. Again prognosis is very guarded. CRITICAL CARE TIME: 35 minutes. ELENA / TEGANN: [id number] /
--- NOTE | 2018-08-03 08:12 | XR ---
EXAMINATION TYPE: XR chest 1V portable DATE OF EXAM: 08/03/2018 COMPARISON: 08/02/2018, 07/30/2018 INDICATION: Tube placement, difficulty breathing, previous abnormal chest TECHNIQUE: Single frontal view of the chest is obtained. FINDINGS: The heart size is normal. The pulmonary vasculature is prominent. There is patchy infiltrate present throughout the bilateral lung aguilera. This may has some improveme nt from the previous day. Nasogastric tube transverses the thorax the tip in left upper quadrant of the abdomen. Left central v enous catheter is present with tip in the right atrium. Endotracheal tube tip is above the suresh. IMPRESSION: 1. Diffuse increased lung markings can be on the basis of ARDS. Clinical correlation recommended. Con tinued follow-up is recommended.
[2018-08-03] MEDS: metroNIDAZOLE-NS PMX 500 MG in SALINE 1 100ML.BAG IVPB SCH ×3 (08:17→23:04)
[2018-08-03] MEDS ORDERED: HEPARIN SODIUM,PORCINE 5,000 UNIT/ML 1 ML VIAL IV PRN (08:26)
[2018-08-03 08:27] LABS: Glucose,Whole Blood 135 mg/dL (75-99)
[2018-08-03] MEDS: PANTOPRAZOLE 40 MG/10 ML VIAL IVP SCH (08:58)
[2018-08-03] MEDS: HYDROCORTISONE SUCCINATE 100 MG/2 ML VIAL IV SCH ×3 (08:59→23:04)
[2018-08-03] MEDS: CHLORHEXIDINE GLUCONATE 15 ML CUP MUCOUS MEM SCH ×2 (08:59→21:08)
--- NOTE | 2018-08-03 09:02 | PN ---
PROGRESS NOTE The patient was seen in the intensive care unit today. The patient had exploratory lap with colostomy. Patient had arterial line at the time of surgery. The patient developed some discoloration of the thumb and her radial artery is occluded at the wrist area. The rest of the hand is viable. There is some capillary refill noted. The patient is on Levophed. Discussed with Dr. Topete. Patient is still high risk. Will start her on heparin. Prognosis is guarded. MMODL / IJN: [id number] /
[2018-08-03 10:46] LABS: Glucose,Whole Blood 146 mg/dL (75-99)
--- NOTE | 2018-08-03 11:16 | P.PN ---
Subjective Progress Note Date: 08/03/18 The patient is a 58-year-old female with no significant PMH who presented to the ED for nausea, vomiting, and dehydration with chronic abdominal pain of 6 months duration. In the ED the patient had computed tomography scan of the abdomen which showed a diverticular abscess and partial small bowel obstruction. She was started on IV fluids, and IV antibiotics with a general surgery consult and was admitted for further management. The patient opted for conservative management initially and a percutaneous drain was placed by IR on . The patient also had an elevated PTT and INR for which hematology was consulted and patient was started on Vit K after which the levels normalized. The patient was evaluated by ID and switched from Meropenem to Zosyn. On 07/30, the patient had worsening of her abdominal pain and became tachycardic, leukopenic, and had an elevated lactate. A repeat CT scan w/ contrast was obtained and showed pneumoperitoneum w/ subcutaneous emphysema. Surgery was contacted immediately and the patient was transferred to the MICU. The patient was subsequently taken for an ex-lap for perforated viscus. During the procedure , the patient was noted to have fecal peritonitis and underwent a sigmoid colectomy w/ end colostomy. The patient was transferred back to MICU post- operatively and was started on IV pressors. The patient was extubated on . She continued to require Levophed. ID recommended the patient to be switched to Unasyn and Flagyl. Furthermore, a random cortisol level was drawn and was 22, for which patient was started on hydrocortisone for suspected adrenal insufficiency. On 08/02/18, the patient was in respiratory distress and was re-intubated. Furthermore, she developed L thumb discoloration with hx of A- line placement on that wrist. Vascular surgery was consulted and recommended that in light of the severe thrombocytopenia and interval improvement of the capillary refill of the thumb area that the patient wouldn't undergo surgical intervention. Patient was seen and examined the bedside. Patient continues to be on the ventilator and has developed acute respiratory distress syndrome and is on PEEP of 13. Objective - Vital Signs Vital signs: Vital Signs Temp 97.6 F 08/03/18 09:00 Pulse 87 08/03/18 09:00 Resp 22 08/03/18 09:00 BP 83/53 08/02/18 15:30 Pulse Ox 99 08/03/18 09:00 Intake & Output 08/02/18 08/03/18 08/03/18 18:59 06:59 18:59 Intake Total 9197.144 3091.739 560.412 Output Total 5330 1220 410 Balance -3532.188 413.739 150.412 Weight 85.3 kg 83.4 kg Intake: IV 1480 1210 268 0.45 850 550 150 Ampicillin-Sulbactam 3 gm 200 200 In Sodium Chloride 0.9% 100 ml @ 200 mls/hr IVPB Q6HR JESSICA Rx#:[id number] Mvi, Adult No.4 with Vit 30 K 10 ml Trace (Conc-1Ml/ Dose) 1 ml In Amino Acid 5%-D15w+Lytes*E* 1,000 ml @ 30 mls/hr IV .Q24H JESSICA Rx#:[id number] Potassium Chloride 10 meq 200 In Water For Injection 1 100ml.bag @ 100 mls/hr IVPB Q1H JESSICA Rx#: [id number] Potassium Chloride 20 meq 300 In Water For Injection 1 100ml.bag @ 50 mls/hr IVPB Q2H [facility]ESSC[facility] Rx#: [id number] Pressure bag 60 18 metroNIDAZOLE-NS PMX 500 200 100 100 mg In Saline 1 100ml.bag @ 100 mls/hr IVPB Q8HR JESSICA Rx#:[id number] Intake, IV Titration 317.812 423.739 292.412 Amount Insulin Regular 100 unit 2.609 38.181 13.248 In Sodium Chloride 0.9% 100 ml @ Per Protocol IV .Q0M JESSICA Rx#:[id number] Norepinephrine 16 mg In 138.709 206.288 79.164 Sodium Chloride 0.9% 250 ml @ Titrate IV .Q0M JESSICA Rx#:[id number] Potassium Chloride 20 meq 100 In Water For Injection 1 100ml.bag @ 50 mls/hr IVPB Q2H JESSICA Rx#: [id number] Propofol 1,000 mg In 176.494 179.270 100 Empty Bag 1 bag @ Titrate IV .Q0M JESSICA Rx#: [id number] Output: Drainage 1500 Medial Abdomen 1500 Urine 3830 1220 410 Other: Voiding Method Indwelling Catheter Indwelling Catheter Indwelling Catheter ABP, PAP, CO, CI - Last Documented Arterial Blood Pressure 106/53 - Exam General: Sedated F, on ventilator HEENT: NC/AT, pinpoint pupils kobe Cardiovascular: S1/S2 wnl, no murmurs, rubs, or gallops Lungs: Scattered coarse breath sounds Abdominal: Colostomy bag in place with yellowish liquid draining, wound-vac in place, bowel sounds absent Skin: Warm, dry Extremities: Trace lower extremity edema Neuro: Unresponsive to noxious stimuli, gag-reflex present - Labs CBC & Chem 7: 08/03/18 04:11 08/03/18 04:11 Labs: Abnormal Lab Results - Last 24 Hours (Table) 08/02/18 08/02/18 08/02/18 Range/Units 04:50 09:32 12:21 RBC (3.80-5.40) m/uL Hgb (11.4-16.0) gm/dL Hct (34.0-46.0) % Plt Count (150-450) k/uL Lymphocytes # (Manual) (1.0-4.8) k/uL ABG pH 7.31 L (7.35-7.45) ABG pCO2 52 H (35-45) mmHg ABG pO2 112 H (83-108) mmHg ABG HCO3 26 H (21-25) mmol/L ABG Total CO2 28 H (19-24) mmol/L ABG O2 Saturation 98.3 H (94-97) % Potassium (3.5-5.1) mmol/L Chloride (98-107) mmol/L Glucose (74-99) mg/dL POC Glucose (mg/dL) 229 H (75-99) mg/dL Calcium (8.4-10.2) mg/dL Phosphorus (2.5-4.5) mg/dL Iron 30 L (50-170) ug/dL TIBC 125 L (228-460) ug/dL Ferritin 643.2 H (10.0-291.0) ng/mL Vitamin B12 3174.0 H (200.0-944.0) pg/mL 08/02/18 08/02/18 08/02/18 Range/Units 13:00 17:16 18:23 RBC (3.80-5.40) m/uL Hgb (11.4-16.0) gm/dL Hct (34.0-46.0) % Plt Count (150-450) k/uL Lymphocytes # (Manual) (1.0-4.8) k/uL ABG pH (7.35-7.45) ABG pCO2 (35-45) mmHg ABG pO2 (83-108) mmHg ABG HCO3 (21-25) mmol/L ABG Total CO2 (19-24) mmol/L ABG O2 Saturation (94-97) % Potassium 3.4 L (3.5-5.1) mmol/L Chloride (98-107) mmol/L Glucose (74-99) mg/dL POC Glucose (mg/dL) 227 H 226 H (75-99) mg/dL Calcium (8.4-10.2) mg/dL Phosphorus (2.5-4.5) mg/dL Iron (50-170) ug/dL TIBC (228-460) ug/dL Ferritin (10.0-291.0) ng/mL Vitamin B12 (200.0-944.0) pg/mL 08/02/18 08/02/18 08/02/18 Range/Units 18:54 20:12 21:06 RBC (3.80-5.40) m/uL Hgb (11.4-16.0) gm/dL Hct (34.0-46.0) % Plt Count (150-450) k/uL Lymphocytes # (Manual) (1.0-4.8) k/uL ABG pH (7.35-7.45) ABG pCO2 (35-45) mmHg ABG pO2 (83-108) mmHg ABG HCO3 (21-25) mmol/L ABG Total CO2 (19-24) mmol/L ABG O2 Saturation (94-97) % Potassium (3.5-5.1) mmol/L Chloride (98-107) mmol/L Glucose (74-99) mg/dL POC Glucose (mg/dL) 178 H 196 H 203 H (75-99) mg/dL Calcium (8.4-10.2) mg/dL Phosphorus (2.5-4.5) mg/dL Iron (50-170) ug/dL TIBC (228-460) ug/dL Ferritin (10.0-291.0) ng/mL Vitamin B12 (200.0-944.0) pg/mL 08/02/18 08/02/18 08/03/18 Range/Units 21:27 23:01 01:22 RBC (3.80-5.40) m/uL Hgb (11.4-16.0) gm/dL Hct (34.0-46.0) % Plt Count (150-450) k/uL Lymphocytes # (Manual) (1.0-4.8) k/uL ABG pH (7.35-7.45) ABG pCO2 (35-45) mmHg ABG pO2 (83-108) mmHg ABG HCO3 (21-25) mmol/L ABG Total CO2 (19-24) mmol/L ABG O2 Saturation (94-97) % Potassium 3.1 L (3.5-5.1) mmol/L Chloride (98-107) mmol/L Glucose (74-99) mg/dL POC Glucose (mg/dL) 209 H 171 H (75-99) mg/dL Calcium (8.4-10.2) mg/dL Phosphorus (2.5-4.5) mg/dL Iron (50-170) ug/dL TIBC (228-460) ug/dL Ferritin (10.0-291.0) ng/mL Vitamin B12 (200.0-944.0) pg/mL 08/03/18 08/03/18 08/03/18 Range/Units 01:59 03:38 04:11 RBC 2.88 L (3.80-5.40) m/uL Hgb 8.8 L (11.4-16.0) gm/dL Hct 26.1 L (34.0-46.0) % Plt Count 20 L (150-450) k/uL Lymphocytes # (Manual) 0.81 L (1.0-4.8) k/uL ABG pH (7.35-7.45) ABG pCO2 (35-45) mmHg ABG pO2 (83-108) mmHg ABG HCO3 (21-25) mmol/L ABG Total CO2 (19-24) mmol/L ABG O2 Saturation (94-97) % Potassium (3.5-5.1) mmol/L Chloride (98-107) mmol/L Glucose (74-99) mg/dL POC Glucose (mg/dL) 157 H 171 H (75-99) mg/dL Calcium (8.4-10.2) mg/dL Phosphorus (2.5-4.5) mg/dL Iron (50-170) ug/dL TIBC (228-460) ug/dL Ferritin (10.0-291.0) ng/mL Vitamin B12 (200.0-944.0) pg/mL 08/03/18 08/03/18 08/03/18 Range/Units 04:11 04:58 05:00 RBC (3.80-5.40) m/uL Hgb (11.4-16.0) gm/dL Hct (34.0-46.0) % Plt Count (150-450) k/uL Lymphocytes # (Manual) (1.0-4.8) k/uL ABG pH (7.35-7.45) ABG pCO2 49 H (35-45) mmHg ABG pO2 155 H (83-108) mmHg ABG HCO3 28 H (21-25) mmol/L ABG Total CO2 30 H (19-24) mmol/L ABG O2 Saturation 99.1 H (94-97) % Potassium (3.5-5.1) mmol/L Chloride 110 H (98-107) mmol/L Glucose 153 H (74-99) mg/dL POC Glucose (mg/dL) 142 H (75-99) mg/dL Calcium 6.8 L (8.4-10.2) mg/dL Phosphorus 2.3 L (2.5-4.5) mg/dL Iron (50-170) ug/dL TIBC (228-460) ug/dL Ferritin (10.0-291.0) ng/mL Vitamin B12 (200.0-944.0) pg/mL 08/03/18 08/03/18 08/03/18 Range/Units 05:52 08:24 10:43 RBC (3.80-5.40) m/uL Hgb (11.4-16.0) gm/dL Hct (34.0-46.0) % Plt Count (150-450) k/uL Lymphocytes # (Manual) (1.0-4.8) k/uL ABG pH (7.35-7.45) ABG pCO2 (35-45) mmHg ABG pO2 (83-108) mmHg ABG HCO3 (21-25) mmol/L ABG Total CO2 (19-24) mmol/L ABG O2 Saturation (94-97) % Potassium (3.5-5.1) mmol/L Chloride (98-107) mmol/L Glucose (74-99) mg/dL POC Glucose (mg/dL) 154 H 135 H 146 H (75-99) mg/dL Calcium (8.4-10.2) mg/dL Phosphorus (2.5-4.5) mg/dL Iron (50-170) ug/dL TIBC (228-460) ug/dL Ferritin (10.0-291.0) ng/mL Vitamin B12 (200.0-944.0) pg/mL Microbiology - Last 24 Hours (Table) 08/01/18 23:20 Gram Stain - Preliminary Sputum Sputum Culture - Preliminary 07/30/18 09:24 Blood Culture - Preliminary Blood No Growth after 72 hours 07/30/18 08:20 Blood Culture - Preliminary Blood No Growth after 72 hours Assessment and Plan Plan: Septic shock secondary to diverticular abdscess rupture, s/p ex-lap w/ sigmoid colostomy POD # 4 -Patient continues to require Levophed -IV Abxs as per ID, switched to Flagyl and Unasyn -IV fluids decreased to 50 mL per hour. Received a dose of Lasix with good urine output and is 3 L negative today Hypoxic respiratory failure requiring mechanical ventilation -Ventilator bundle Acute respiratory distress syndrome -Continue with the ventilator bundle -Currently on PEEP of 13, defer to critical care Hypokalemia, Hypocalcemia, and hypomagnasemia -Replaced. Will monitor Normocytic anemia with thrombocytopenia -Hematology aware. Will f/u recs. -Likely due to septic shock -HIT screen negative L thumb discoloration, impaired capillary refill -As per vascular surgery Leukopenia, resolved DVT//GI prophylaxis -IPCDs -No indication for GI prophylaxis Anticipated discharge date: 08/07/[address]: Home A total of 35 minutes was spent on the care of this complex patient more than 50 % of the time was spent in counseling and care coordination.
[2018-08-03 11:32] LABS: Basophils % (A) 0 %; Eosinophils % (A) 1 %; HCT 27.1 % (34.0-46.0); HGB 8.9 gm/dL (11.4-16.0); Hypochromasia Slight; Lymphocytes # (A) 0.6 k/uL (1.0-4.8); Lymphocytes % (A) 9 %; MCH 29.4 pg (25.0-35.0); MCHC 32.7 g/dL (31.0-37.0); MCV 89.8 fL (80.0-100.0); Mean Platelet Volume 9.9; Monocytes # (A) 0.3 k/uL (0-1.0); Monocytes % (A) 5 %; Neutrophils # (A) 5.1 k/uL (1.3-7.7); Neutrophils % (A) 83 %; RBC 3.02 m/uL (3.80-5.40); RDW 14.3 % (11.5-15.5); WBC 6.2 k/uL (3.8-10.6)
[2018-08-03 11:34] LABS: Platelet Count 24 k/uL (150-450)
[2018-08-03] MEDS: HEPARIN SOD,PORK IN 0.45% NACL 25,000 UNIT in 0.45% NACL 1 250ML.BAG IV SCH (11:35)
[2018-08-03 11:41] LABS: Partial Thromboplastin Time 33.5 sec (22.0-30.0); Prothrombin Time 10.9 sec (9.0-12.0)
--- NOTE | 2018-08-03 14:13 | P.PN ---
Subjective Progress Note Date: 08/03/18 CHIEF COMPLAINT: Abdominal pain HISTORY OF PRESENT ILLNESS: Patient is status post sigmoid colectomy with end colostomy, takedown of splenic flexure, small bowel resection 2, and appendectomy. POD #4. Patient remains on ventilator. She remains on vasopressors. Ostomy with minimal serous drainage. Wound vac was changed per Paloma Nur. Tissue appears dusky with increased depth of wound bed. Patient had over 750cc of drainage overnight. Dr. Jacobson updated on condition of incision. PHYSICAL EXAM: VITAL SIGNS: Currently stable on vasopressors GENERAL: Sedated on ventilator. HEENT: No sclera icterus. Extraocular movements grossly intact. Moist buccal mucosa. Head is atraumatic, normocephalic. No nasal drainage. NECK: Supple without lymphadenopathy. CHEST: Equal bilateral excursions. Currently vented. CARDIOVASCULAR: Regular rate with regular rhythm. Palpable 2+ radial pulses. ABDOMEN: Soft. Nondistended. Ostomy to left lower quadrant minimal serous fluid. Wound VAC to midline incision MUSCULOSKELETAL: No clubbing, cyanosis or edema. NEUROLOGIC: Unable to assess secondary to intubation PSYCH: Unable to assess secondary to intubation ASSESSMENT: 1. Small bowel obstruction with perforated sigmoid colon and fecal peritonitis 2. Status post sigmoid colectomy with end colostomy, takedown of splenic flexure, small bowel resection 2, and appendectomy 3. Postoperative ileus PLAN: ICU management per Dr. Topete. Wean Levophed as tolerated. Continue wound vac. Will reassess wound bed at next scheduled wound vac change Continue TPN. Continue Reglan. Nurse practitioner note has been reviewed by physician. Signing provider agrees with the documented findings, assessment, and plan of care. Objective - Vital Signs Vital signs: Vital Signs Temp 97.6 F 08/03/18 09:00 Pulse 97 08/03/18 11:26 Resp 25 H 08/03/18 11:00 BP 83/53 08/02/18 15:30 Pulse Ox 99 08/03/18 11:00 Intake & Output 08/02/18 08/03/18 08/03/18 18:59 06:59 18:59 Intake Total 0032.218 9875.739 672.412 Output Total 5330 1220 1610 Balance -3532.188 413.739 -937.588 Weight 85.3 kg 83.4 kg Intake: IV 1480 1210 380 0.45 850 550 250 Ampicillin-Sulbactam 3 gm 200 200 In Sodium Chloride 0.9% 100 ml @ 200 mls/hr IVPB Q6HR [facility]ESS[facility] Rx#:[id number] Mvi, Adult No.4 with Vit 30 K 10 ml Trace (Conc-1Ml/ Dose) 1 ml In Amino Acid 5%-D15w+Lytes*E* 1,000 ml @ 30 mls/hr IV .Q24H JESSICA Rx#:[id number] Potassium Chloride 10 meq 200 In Water For Injection 1 100ml.bag @ 100 mls/hr IVPB Q1H JESSICA Rx#: [id number] Potassium Chloride 20 meq 300 In Water For Injection 1 100ml.bag @ 50 mls/hr IVPB Q2H JESSICA Rx#: [id number] Pressure bag 60 30 metroNIDAZOLE-NS PMX 500 200 100 100 mg In Saline 1 100ml.bag @ 100 mls/hr IVPB Q8HR JESSICA Rx#:[id number] Intake, IV Titration 317.812 423.739 292.412 Amount Insulin Regular 100 unit 2.609 38.181 13.248 In Sodium Chloride 0.9% 100 ml @ Per Protocol IV .Q0M JESSICA Rx#:[id number] Norepinephrine 16 mg In 138.709 206.288 79.164 Sodium Chloride 0.9% 250 ml @ Titrate IV .Q0M JESSICA Rx#:[id number] Potassium Chloride 20 meq 100 In Water For Injection 1 100ml.bag @ 50 mls/hr IVPB Q2H JESSICA Rx#: [id number] Propofol 1,000 mg In 176.494 179.270 100 Empty Bag 1 bag @ Titrate IV .Q0M JESSICA Rx#: [id number] Output: Drainage 1500 Medial Abdomen 1500 Urine 3830 1220 1610 Other: Voiding Method Indwelling Catheter Indwelling Catheter Indwelling Catheter ABP, PAP, CO, CI - Last Documented Arterial Blood Pressure 101/50 - Labs CBC & Chem 7: 08/03/18 10:48 08/03/18 04:11 Labs: Abnormal Lab Results - Last 24 Hours (Table) 08/02/18 08/02/18 08/02/18 Range/Units 17:16 18:23 18:54 RBC (3.80-5.40) m/uL Hgb (11.4-16.0) gm/dL Hct (34.0-46.0) % Plt Count (150-450) k/uL Lymphocytes # (1.0-4.8) k/uL Lymphocytes # (Manual) (1.0-4.8) k/uL APTT (22.0-30.0) sec ABG pCO2 (35-45) mmHg ABG pO2 (83-108) mmHg ABG HCO3 (21-25) mmol/L ABG Total CO2 (19-24) mmol/L ABG O2 Saturation (94-97) % Potassium (3.5-5.1) mmol/L Chloride (98-107) mmol/L Glucose (74-99) mg/dL POC Glucose (mg/dL) 227 H 226 H 178 H (75-99) mg/dL Calcium (8.4-10.2) mg/dL Phosphorus (2.5-4.5) mg/dL 08/02/18 08/02/18 08/02/18 Range/Units 20:12 21:06 21:27 RBC (3.80-5.40) m/uL Hgb (11.4-16.0) gm/dL Hct (34.0-46.0) % Plt Count (150-450) k/uL Lymphocytes # (1.0-4.8) k/uL Lymphocytes # (Manual) (1.0-4.8) k/uL APTT (22.0-30.0) sec ABG pCO2 (35-45) mmHg ABG pO2 (83-108) mmHg ABG HCO3 (21-25) mmol/L ABG Total CO2 (19-24) mmol/L ABG O2 Saturation (94-97) % Potassium 3.1 L (3.5-5.1) mmol/L Chloride (98-107) mmol/L Glucose (74-99) mg/dL POC Glucose (mg/dL) 196 H 203 H (75-99) mg/dL Calcium (8.4-10.2) mg/dL Phosphorus (2.5-4.5) mg/dL 08/02/18 08/03/18 08/03/18 Range/Units 23:01 01:22 01:59 RBC (3.80-5.40) m/uL Hgb (11.4-16.0) gm/dL Hct (34.0-46.0) % Plt Count (150-450) k/uL Lymphocytes # (1.0-4.8) k/uL Lymphocytes # (Manual) (1.0-4.8) k/uL APTT (22.0-30.0) sec ABG pCO2 (35-45) mmHg ABG pO2 (83-108) mmHg ABG HCO3 (21-25) mmol/L ABG Total CO2 (19-24) mmol/L ABG O2 Saturation (94-97) % Potassium (3.5-5.1) mmol/L Chloride (98-107) mmol/L Glucose (74-99) mg/dL POC Glucose (mg/dL) 209 H 171 H 157 H (75-99) mg/dL Calcium (8.4-10.2) mg/dL Phosphorus (2.5-4.5) mg/dL 08/03/18 08/03/18 08/03/18 Range/Units 03:38 04:11 04:11 RBC 2.88 L (3.80-5.40) m/uL Hgb 8.8 L (11.4-16.0) gm/dL Hct 26.1 L (34.0-46.0) % Plt Count 20 L (150-450) k/uL Lymphocytes # (1.0-4.8) k/uL Lymphocytes # (Manual) 0.81 L (1.0-4.8) k/uL APTT (22.0-30.0) sec ABG pCO2 (35-45) mmHg ABG pO2 (83-108) mmHg ABG HCO3 (21-25) mmol/L ABG Total CO2 (19-24) mmol/L ABG O2 Saturation (94-97) % Potassium (3.5-5.1) mmol/L Chloride 110 H (98-107) mmol/L Glucose 153 H (74-99) mg/dL POC Glucose (mg/dL) 171 H (75-99) mg/dL Calcium 6.8 L (8.4-10.2) mg/dL Phosphorus 2.3 L (2.5-4.5) mg/dL 08/03/18 08/03/18 08/03/18 Range/Units 04:58 05:00 05:52 RBC (3.80-5.40) m/uL Hgb (11.4-16.0) gm/dL Hct (34.0-46.0) % Plt Count (150-450) k/uL Lymphocytes # (1.0-4.8) k/uL Lymphocytes # (Manual) (1.0-4.8) k/uL APTT (22.0-30.0) sec ABG pCO2 49 H (35-45) mmHg ABG pO2 155 H (83-108) mmHg ABG HCO3 28 H (21-25) mmol/L ABG Total CO2 30 H (19-24) mmol/L ABG O2 Saturation 99.1 H (94-97) % Potassium (3.5-5.1) mmol/L Chloride (98-107) mmol/L Glucose (74-99) mg/dL POC Glucose (mg/dL) 142 H 154 H (75-99) mg/dL Calcium (8.4-10.2) mg/dL Phosphorus (2.5-4.5) mg/dL 08/03/18 08/03/18 08/03/18 Range/Units 08:24 10:43 10:48 RBC 3.02 L (3.80-5.40) m/uL Hgb 8.9 L (11.4-16.0) gm/dL Hct 27.1 L (34.0-46.0) % Plt Count 24 L (150-450) k/uL Lymphocytes # 0.6 L (1.0-4.8) k/uL Lymphocytes # (Manual) (1.0-4.8) k/uL APTT (22.0-30.0) sec ABG pCO2 (35-45) mmHg ABG pO2 (83-108) mmHg ABG HCO3 (21-25) mmol/L ABG Total CO2 (19-24) mmol/L ABG O2 Saturation (94-97) % Potassium (3.5-5.1) mmol/L Chloride (98-107) mmol/L Glucose (74-99) mg/dL POC Glucose (mg/dL) 135 H 146 H (75-99) mg/dL Calcium (8.4-10.2) mg/dL Phosphorus (2.5-4.5) mg/dL 08/03/18 Range/Units 10:48 RBC (3.80-5.40) m/uL Hgb (11.4-16.0) gm/dL Hct (34.0-46.0) % Plt Count (150-450) k/uL Lymphocytes # (1.0-4.8) k/uL Lymphocytes # (Manual) (1.0-4.8) k/uL APTT 33.5 H (22.0-30.0) sec ABG pCO2 (35-45) mmHg ABG pO2 (83-108) mmHg ABG HCO3 (21-25) mmol/L ABG Total CO2 (19-24) mmol/L ABG O2 Saturation (94-97) % Potassium (3.5-5.1) mmol/L Chloride (98-107) mmol/L Glucose (74-99) mg/dL POC Glucose (mg/dL) (75-99) mg/dL Calcium (8.4-10.2) mg/dL Phosphorus (2.5-4.5) mg/dL Microbiology - Last 24 Hours (Table) 08/01/18 23:20 Gram Stain - Preliminary Sputum Sputum Culture - Preliminary Rachelle albicans 07/30/18 09:24 Blood Culture - Preliminary Blood No Growth after 96 hours 07/30/18 08:20 Blood Culture - Preliminary Blood No Growth after 96 hours Assessment and Plan (1) Abdominal pain Current Visit: Yes Status: Acute Code(s): R10.9 - UNSPECIFIED ABDOMINAL PAIN SNOMED Code(s): 42478069 (2) Decreased oral intake Current Visit: Yes Status: Acute Code(s): R63.8 - OTHER SYMPTOMS AND SIGNS CONCERNING FOOD AND FLUID INTAKE SNOMED Code(s): 746316107 (3) Colonic diverticular abscess Current Visit: Yes Status: Acute Code(s): K57.20 - DVTRCLI OF LG INT W PERFORATION AND ABSCESS W/O BLEEDING SNOMED Code(s): 033807293 (4) Partial bowel obstruction Current Visit: Yes Status: Acute Code(s): K56.600 - PARTIAL INTESTINAL OBSTRUCTION, UNSPECIFIED TO CAUSE SNOMED Code(s): 21800408
[2018-08-03 14:19] LABS: Glucose,Whole Blood 143 mg/dL (75-99)
[2018-08-03 16:15] LABS: Glucose,Whole Blood 139 mg/dL (75-99)
[2018-08-03] MEDS: INSULIN REGULAR 100 UNIT in SODIUM CHLORIDE 0.9% 100 ML IV SCH (17:30)
[2018-08-03 18:00] LABS: Glucose,Whole Blood 150 mg/dL (75-99)
[2018-08-03 20:20] LABS: Glucose,Whole Blood 121 mg/dL (75-99)
[2018-08-03 21:35] LABS: Glucose,Whole Blood 177 mg/dL (75-99)
[2018-08-03 22:13] LABS: Glucose,Whole Blood 128 mg/dL (75-99)
[2018-08-03] MEDS ORDERED: MVI, ADULT NO.4 WITH VIT K 10 ML, TRACE (CONC-1ML/DOSE) 1 ML, POTASSIUM CHLORIDE 40 MEQ... IV SCH ×5 (23:00)
--- NOTE | 2018-08-03 23:20 | PN ---
PROGRESS NOTE DATE OF SERVICE: 08/03/2018 REASON FOR FOLLOWUP: Abdominal abscess from ruptured diverticulitis. INTERVAL HISTORY: The patient is currently afebrile. The patient is hemodynamically more stable; has been requiring less and less pressor support. Patient's FiO2 is down to 50%. No other changes noted by the nursing staff. PHYSICAL EXAMINATION: Blood pressure is 116/55 with a pulse of 93, temperature 97.6. She is 100% on 50% FiO2. General description is a middle-aged female intubated on the vent. HEENT examination shows pallor. The patient is orally intubated. LUNGS: Unlabored breathing with decreased breath sounds at the bases. HEART: S1, S2. Regular rate and rhythm. ABDOMEN: Soft. Wound is currently covered with wound V.A.C. EXTREMITIES: No edema of the feet. LABS: Hemoglobin 8.9, white count 6.2, BUN of 11, creatinine 0.62. The abdominal culture is positive for E coli, beta and alpha hemolytic Streptococcus sputum with Rachelle albicans. Blood culture has been negative. DIAGNOSTIC IMPRESSION AND PLAN: Patient with abdominal sepsis in this patient who did have an extensive abdominal wound requiring extensive surgery. Patient is currently covered with Unasyn and Flagyl abdomen, as her white count has normalized and fever resolved. She will be monitored closely. Continue with supportive care. MMODL / IJN: [id number] /
[2018-08-03 23:56] LABS: Glucose,Whole Blood 195 mg/dL (75-99)
[2018-08-04 01:55] LABS: Glucose,Whole Blood 169 mg/dL (75-99)
[2018-08-04 02:05] LABS: Glucose,Whole Blood 183 mg/dL (75-99)
[2018-08-04] MEDS: NOREPINEPHRINE 16 MG in SODIUM CHLORIDE 0.9% 250 ML IV SCH (02:08)
[2018-08-04] MEDS: PROPOFOL 1,000 MG in EMPTY BAG 1 BAG IV SCH ×5 (02:08→23:23)
[2018-08-04] MEDS: IPRATROPIUM-ALBUTEROL 3 ML NEB INHALATION PRN (03:09)
[2018-08-04 04:44] LABS: HCT 23.9 % (34.0-46.0); Hypochromasia Slight; MCH 30.1 pg (25.0-35.0); MCHC 33.4 g/dL (31.0-37.0); MCV 90.1 fL (80.0-100.0); Mean Platelet Volume 9.9; RBC 2.66 m/uL (3.80-5.40); RDW 14.7 % (11.5-15.5); WBC 5.1 k/uL (3.8-10.6)
[2018-08-04 04:47] LABS: Platelet Count 26 k/uL (150-450)
[2018-08-04] MEDS: METOCLOPRAMIDE 5 MG/ML 2 ML VIAL IVP SCH ×4 (05:08→23:48)
[2018-08-04] MEDS: AMPICILLIN-SULBACTAM 3 GM in SODIUM CHLORIDE 0.9% 100 ML IVPB SCH ×4 (05:08→23:47)
[2018-08-04 05:09] LABS: ABG HCO3 31 mmol/L (21-25); ABG Oxygen Saturation 99.6 % (94-97); ABG PCO2 43 mmHg (35-45); ABG PH 7.47 (7.35-7.45); ABG PO2 191 mmHg (83-108); ABG TCO2 32 mmol/L (19-24)
[2018-08-04 05:14] LABS: Glucose,Whole Blood 194 mg/dL (75-99)
[2018-08-04 05:34] LABS: Anion Gap 2 mmol/L; Blood Urea Nitrogen 14 mg/dL (7-17); Calcium 6.8 mg/dL (8.4-10.2); Carbon Dioxide 29 mmol/L (22-30); Chloride 109 mmol/L (98-107); Glucose 215 mg/dL (74-99); Magnesium 1.9 mg/dL (1.6-2.3); Phosphorus 2.5 mg/dL (2.5-4.5); Potassium 3.8 mmol/L (3.5-5.1); Sodium 140 mmol/L (137-145)
[2018-08-04 05:36] LABS: Band Neutrophils % 4 %; Lymphocytes # (M) 0.66 k/uL (1.0-4.8); Monocytes # (M) 0.36 k/uL (0-1.0); Neutrophils % (M) 76 %; Nucleated Red Blood Cells 0 /100 WBC (0-0); Total Cells Counted 100
[2018-08-04 05:40] LABS: Target Cells Present
[2018-08-04] MEDS ORDERED: Potassium Replacement Protocol 1 EACH MISC MISCELLANE PRN ×2 (06:09→06:41)
[2018-08-04 06:10] LABS: Glucose,Whole Blood 198 mg/dL (75-99)
[2018-08-04] MEDS ORDERED: Magnesium Replacement Protocol 1 EACH MISC MISCELLANE PRN (06:10)
[2018-08-04] MEDS: MAGNESIUM SULFATE-D5W PMX 1 GM in DEXTROSE/WATER 1 100ML.BAG IVPB SCH ×2 (06:36→07:03)
[2018-08-04] MEDS ORDERED: POTASSIUM BICARBONATE/CIT AC 20 MEQ TABLET.EFF NG-TUBE SCH (07:00)
[2018-08-04] MEDS: POTASSIUM CHLORIDE 10 MEQ in WATER FOR INJECTION 1 100ML.BAG IVPB SCH ×2 (07:08→08:19)
--- NOTE | 2018-08-04 07:26 | XR ---
EXAMINATION TYPE: XR chest 1V portable DATE OF EXAM: 08/04/2018 COMPARISON: 08/03/2018 HISTORY: SOB, Follow Up FINDINGS: Indwelling tubes and catheters are unchanged. Diffuse airspace infiltrates are unchanged. Stable appearance of the cardio-mediastinal structures at this time. Pleural effusion unchanged. IMPRESSION: 1. Stable portable chest. Clinical correlation and follow up until resolution is recommended.
[2018-08-04] MEDS: IPRATROPIUM-ALBUTEROL 3 ML NEB INHALATION SCH ×4 (07:52→19:31)
[2018-08-04] MEDS: metroNIDAZOLE-NS PMX 500 MG in SALINE 1 100ML.BAG IVPB SCH ×3 (08:19→23:48)
[2018-08-04] MEDS: HYDROmorphone 0.5 MG/0.5 ML SYRINGE IVP PRN ×3 (08:21→20:47)
[2018-08-04] MEDS: HYDROCORTISONE SUCCINATE 100 MG/2 ML VIAL IV SCH ×3 (08:23→23:48)
[2018-08-04] MEDS: CHLORHEXIDINE GLUCONATE 15 ML CUP MUCOUS MEM SCH ×2 (08:23→21:22)
[2018-08-04] MEDS: PANTOPRAZOLE 40 MG/10 ML VIAL IVP SCH (08:24)
[2018-08-04] MEDS ORDERED: FUROSEMIDE 10 MG/ML 4 ML VIAL IV STA (08:30)
--- NOTE | 2018-08-04 08:45 | PN ---
PROGRESS NOTE A 58-year-old white female patient had a bowel obstruction. Patient went for resection of the colon and the patient has a colostomy. Patient has been on ventilator with acute respiratory distress syndrome. The patient still on Levophed. Patient left hand, thumb still has skin discoloration. Patient is on heparin. Ultrasound Doppler shows patient has ulnar pulses present, radial pulses. no pulse noted by the Doppler on the radial at the wrist area. The patient has marked swelling of the dorsal aspect of the hand. Will continue with heparin. Prognosis guarded. Will discuss with the family in detail. MMODL / IJN: [id number] /
[2018-08-04 08:52] LABS: Glucose,Whole Blood 169 mg/dL (75-99)
[2018-08-04 10:19] LABS: ABG Base Excess 5.6 mmol/L; ABG HCO3 30 mmol/L (21-25); ABG Oxygen Saturation 99.7 % (94-97); ABG PCO2 47 mmHg (35-45); ABG PH 7.42 (7.35-7.45); ABG PO2 220 mmHg (83-108); ABG TCO2 32 mmol/L (19-24)
[2018-08-04 10:31] LABS: Glucose,Whole Blood 176 mg/dL (75-99)
--- NOTE | 2018-08-04 10:42 | PN ---
PROGRESS NOTE DATE OF SERVICE: 08/04/2018 This is a 58-year-old female admitted back on July 26 for abdominal pain. She was found to have a bowel obstruction. She is postop day #5, status post exploratory laparotomy, sigmoid colectomy, colostomy, and appendectomy. The patient was thought to have acute abdominal sepsis and diverticular abscess. She was initially extubated on 07/31, but unfortunately developed hypoxemic respiratory failure and was re-intubated on 08/01. She has developed septic ARDS with acute hypoxemic respiratory failure, high FiO2 and PEEP requirements. Currently, she is on the volume assist-control mode rate of 22, tidal volume 350, FiO2 of 50%, PEEP of 13. Gases show PO2 of 191, paCO2 of 43, and a pH of 7.47. The PEEP was dropped from 13 to 10. She is currently on total parental nutrition at 45 mL an hour, propofol at 35 mcg/kg per per minute, norepinephrine at 8 mcg/minute, insulin at 3.5 units an hour, 0.45 IV at 50 mL an hour and heparin via weight-based protocol. She is postop day #5. She is on Unasyn and Flagyl as an antibiotic. Her microbiologic study show a number of different things including Essure cat coli, alpha hemolytic and beta-hemolytic streptococci, and a number of anaerobic bacteria. ID is on the case. Overall prognosis remains very guarded. Current vital signs are reviewed, temperature 97.9, heart rate 86, respiratory rate blood pressure is 83/53 with mean is 63. More recent blood pressure 107/59. Her central venous pressure is 21. Her saturations are 98%-99%. She is currently sedated. Appears in no acute distress. She is synchronous with the mechanical ventilator. She does have an orally-placed endotracheal tube and NG tube. HEENT examination is grossly unremarkable. Neck is supple. Full range of motion. No adenopathy. Neck veins are flat. Cardiovascular examination reveals regular rhythm and rate. S1, S2 normal. No S3, S4, or murmur. Lungs reveal coarse rhonchi. Breath sounds are diminished. Breath sounds are equal bilaterally. Abdomen is soft. Bowel sounds are noted. Extremities are intact. There is diffuse edema and anasarca. Skin reveals some areas of ecchymoses. Neurologic examination could not be adequately assessed. Microbiology is noted. LAB DATA: Reviewed. White count 5.1, hemoglobin 8, hematocrit 23.9, platelet count 26,000. PTT 67.8. Blood gases have been noted. Sodium 140, potassium 3.8, chloride is 109, CO2 is 29, anion gap 2, BUN and creatinine were 14 and 0.56. Calcium 6.8, magnesium 1.9, phosphorus 2.5. Chest x-ray shows diffuse but improved bilateral infiltrates. Medications are reviewed. ASSESSMENT: 1. Postoperative day #5, status post exploratory laparotomy, sigmoid colectomy with colostomy and appendectomy secondary to acute abdominal sepsis and diverticular abscess. 2. Routine postoperative ventilator management with initial extubation on July 31 and re-intubation on August 01 for acute hypoxemic respiratory failure. 3. Acute respiratory distress syndrome (ARDS), secondary to abdominal sepsis. 4. Hyperchloremic non-anion gap metabolic acidosis, much improved. 5. History of anion gap metabolic acidosis secondary to lactic acidemia, resolved. 6. History of chronic abdominal pain. 7. Leukopenia. 8. Sepsis related thrombocytopenia. 9. Gastroesophageal reflux disease. 10.Relative adrenal insufficiency. 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 PLAN: The patient's medical issues are very complex. The patient's art line was reinserted. The patient is on IV heparin. Platelet counts remained stable. The PEEP was dropped from 13-10. I will have nurses repeat a blood gas. We may be able to make an additional PEEP drop. The patient remains on Unasyn and Flagyl. Microbiologic studies are reviewed. The patient remains on TPN at 45 mL an hour, propofol at 35 mcg/kg per per minute, norepinephrine at 8 mcg/minute, insulin at 3.5 units an hour and half- normal saline at 50 mL an hour and low-dose heparin infusion. We will continue to follow and make changes where appropriate. I have discussed the case with the surgeon. Additional recommendations and suggestions forthcoming. Prognosis is guarded. Critical care time 36 minutes. MMODL / IJN: [id number] /
--- NOTE | 2018-08-04 11:38 | P.PN ---
Subjective Progress Note Date: 08/04/18 CHIEF COMPLAINT: Abdominal pain HISTORY OF PRESENT ILLNESS: Patient is status post sigmoid colectomy with end colostomy, takedown of splenic flexure, small bowel resection 2, and appendectomy. POD #5. Patient remains on ventilator. She remains on vasopressors. Currently Levophed at 8 mics per minute.. Ostomy with small amount of serous drainage. Wound VAC remains intact with serous drainage. PHYSICAL EXAM: VITAL SIGNS: Currently stable on vasopressors GENERAL: Sedated on ventilator. HEENT: No sclera icterus. Extraocular movements grossly intact. Moist buccal mucosa. Head is atraumatic, normocephalic. No nasal drainage. NECK: Supple without lymphadenopathy. CHEST: Equal bilateral excursions. Currently vented. CARDIOVASCULAR: Regular rate with regular rhythm. Palpable 2+ radial pulses. ABDOMEN: Soft. Distended. Ostomy to left lower quadrant with serous fluid. Wound VAC to midline incision MUSCULOSKELETAL: No clubbing, cyanosis or edema. NEUROLOGIC: Unable to assess secondary to intubation PSYCH: Unable to assess secondary to intubation ASSESSMENT: 1. Small bowel obstruction with perforated sigmoid colon and fecal peritonitis 2. Status post sigmoid colectomy with end colostomy, takedown of splenic flexure, small bowel resection 2, and appendectomy 3. Postoperative ileus PLAN: ICU management per Dr. Topete. Wean Levophed as tolerated. Continue wound vac. Will reassess wound bed at next scheduled wound vac change Continue TPN. Continue Reglan. Nurse practitioner note has been reviewed by physician. Signing provider agrees with the documented findings, assessment, and plan of care. Objective - Vital Signs Vital signs: Vital Signs Temp 97.9 F 08/04/18 08:00 Pulse 104 H 08/04/18 11:00 Resp 22 08/04/18 11:00 BP 83/53 08/04/18 11:00 Pulse Ox 99 08/04/18 11:00 Intake & Output 08/03/18 08/04/18 08/04/18 18:59 06:59 18:59 Intake Total 0814.113 9096.686 532.232 Output Total 3960 1530 1030 Balance -2236.969 600.686 -497.768 Weight 86 kg 86 kg Intake: IV 1072 1028 324 0.45 600 50 Ampicillin-Sulbactam 3 gm 200 100 In Sodium Chloride 0.9% 100 ml @ 200 mls/hr IVPB Q6HR JESSICA Rx#:[id number] Magnesium Sulfate-D5w Pmx 100 1 gm In Dextrose/Water 1 100ml.bag @ 100 mls/hr IVPB Q1H JESSICA Rx#: [id number] Pressure bag 72 78 24 Sodium Chloride 0.45% 1, 600 200 000 ml @ 50 mls/hr IV . Q20H JESSICA Rx#:[id number] metroNIDAZOLE-NS PMX 500 200 100 100 mg In Saline 1 100ml.bag @ 100 mls/hr IVPB Q8HR JESSICA Rx#:[id number] Intake, IV Titration 020.258 5991.686 208.232 Amount Heparin Sod,Pork in 0.45% 96.333 NaCl 25,000 unit In 0.45 % NaCl 1 250ml.bag @ 12 UNITS/KG/HR 10 mls/hr IV .Q24H JESSICA Rx#:[id number] Insulin Regular 100 unit 24.548 12.039 8.232 In Sodium Chloride 0.9% 100 ml @ Per Protocol IV .Q0M JESSICA Rx#:[id number] Mvi, Adult No.4 with Vit 888.75 K 10 ml Trace (Conc-1Ml/ Dose) 1 ml In Amino Acid 5%-D15w+Lytes*E* 1,000 ml @ 45 mls/hr IV .[id number] JESSICA Rx#:[id number] Norepinephrine 16 mg In 149.439 5.564 Sodium Chloride 0.9% 250 ml @ Titrate IV .Q0M JESSICA Rx#:[id number] Potassium Chloride 10 meq 100 In Water For Injection 1 100ml.bag @ 100 mls/hr IVPB Q1H JESSICA Rx#: [id number] Potassium Chloride 20 meq 100 In Water For Injection 1 100ml.bag @ 50 mls/hr IVPB Q2H JESSICA Rx#: [id number] Potassium Chloride 20 meq 200 In Water For Injection 1 100ml.bag @ 50 mls/hr IVPB Q2H JESSICA Rx#: [id number] Propofol 1,000 mg In 177.044 100 100 Empty Bag 1 bag @ Titrate IV .Q0M JESSICA Rx#: [id number] Output: Drainage 500 350 Medial Abdomen 500 350 Urine 3460 1180 1030 Other: Voiding Method Indwelling Catheter Indwelling Catheter Indwelling Catheter ABP, PAP, CO, CI - Last Documented Arterial Blood Pressure 124/59 - Labs CBC & Chem 7: 08/04/18 04:30 08/04/18 04:30 Labs: Abnormal Lab Results - Last 24 Hours (Table) 08/03/18 08/03/18 08/03/18 Range/Units 10:48 13:43 13:45 RBC (3.80-5.40) m/uL Hgb (11.4-16.0) gm/dL Hct (34.0-46.0) % Plt Count (150-450) k/uL Lymphocytes # (Manual) (1.0-4.8) k/uL APTT 33.5 H (22.0-30.0) sec ABG pH (7.35-7.45) ABG pCO2 (35-45) mmHg ABG pO2 (83-108) mmHg ABG HCO3 (21-25) mmol/L ABG Total CO2 (19-24) mmol/L ABG O2 Saturation (94-97) % Potassium 3.2 L (3.5-5.1) mmol/L Chloride (98-107) mmol/L Glucose (74-99) mg/dL POC Glucose (mg/dL) 143 H (75-99) mg/dL Calcium (8.4-10.2) mg/dL 08/03/18 08/03/18 08/03/18 Range/Units 16:12 17:55 20:16 RBC (3.80-5.40) m/uL Hgb (11.4-16.0) gm/dL Hct (34.0-46.0) % Plt Count (150-450) k/uL Lymphocytes # (Manual) (1.0-4.8) k/uL APTT (22.0-30.0) sec ABG pH (7.35-7.45) ABG pCO2 (35-45) mmHg ABG pO2 (83-108) mmHg ABG HCO3 (21-25) mmol/L ABG Total CO2 (19-24) mmol/L ABG O2 Saturation (94-97) % Potassium (3.5-5.1) mmol/L Chloride (98-107) mmol/L Glucose (74-99) mg/dL POC Glucose (mg/dL) 139 H 150 H 121 H (75-99) mg/dL Calcium (8.4-10.2) mg/dL 08/03/18 08/03/18 08/03/18 Range/Units 20:30 21:33 22:00 RBC (3.80-5.40) m/uL Hgb (11.4-16.0) gm/dL Hct (34.0-46.0) % Plt Count (150-450) k/uL Lymphocytes # (Manual) (1.0-4.8) k/uL APTT 163.0 H* (22.0-30.0) sec ABG pH (7.35-7.45) ABG pCO2 (35-45) mmHg ABG pO2 (83-108) mmHg ABG HCO3 (21-25) mmol/L ABG Total CO2 (19-24) mmol/L ABG O2 Saturation (94-97) % Potassium (3.5-5.1) mmol/L Chloride (98-107) mmol/L Glucose (74-99) mg/dL POC Glucose (mg/dL) 177 H 128 H (75-99) mg/dL Calcium (8.4-10.2) mg/dL 08/03/18 08/04/18 08/04/18 Range/Units 23:43 01:51 02:02 RBC (3.80-5.40) m/uL Hgb (11.4-16.0) gm/dL Hct (34.0-46.0) % Plt Count (150-450) k/uL Lymphocytes # (Manual) (1.0-4.8) k/uL APTT (22.0-30.0) sec ABG pH (7.35-7.45) ABG pCO2 (35-45) mmHg ABG pO2 (83-108) mmHg ABG HCO3 (21-25) mmol/L ABG Total CO2 (19-24) mmol/L ABG O2 Saturation (94-97) % Potassium (3.5-5.1) mmol/L Chloride (98-107) mmol/L Glucose (74-99) mg/dL POC Glucose (mg/dL) 195 H 169 H 183 H (75-99) mg/dL Calcium (8.4-10.2) mg/dL 08/04/18 08/04/18 08/04/18 Range/Units 04:13 04:30 04:30 RBC 2.66 L (3.80-5.40) m/uL Hgb 8.0 L (11.4-16.0) gm/dL Hct 23.9 L (34.0-46.0) % Plt Count 26 L (150-450) k/uL Lymphocytes # (Manual) 0.66 L (1.0-4.8) k/uL APTT (22.0-30.0) sec ABG pH (7.35-7.45) ABG pCO2 (35-45) mmHg ABG pO2 (83-108) mmHg ABG HCO3 (21-25) mmol/L ABG Total CO2 (19-24) mmol/L ABG O2 Saturation (94-97) % Potassium (3.5-5.1) mmol/L Chloride 109 H (98-107) mmol/L Glucose 215 H (74-99) mg/dL POC Glucose (mg/dL) 194 H (75-99) mg/dL Calcium 6.8 L (8.4-10.2) mg/dL 08/04/18 08/04/18 08/04/18 Range/Units 04:30 05:02 06:07 RBC (3.80-5.40) m/uL Hgb (11.4-16.0) gm/dL Hct (34.0-46.0) % Plt Count (150-450) k/uL Lymphocytes # (Manual) (1.0-4.8) k/uL APTT 67.8 H (22.0-30.0) sec ABG pH 7.47 H (7.35-7.45) ABG pCO2 (35-45) mmHg ABG pO2 191 H (83-108) mmHg ABG HCO3 31 H (21-25) mmol/L ABG Total CO2 32 H (19-24) mmol/L ABG O2 Saturation 99.6 H (94-97) % Potassium (3.5-5.1) mmol/L Chloride (98-107) mmol/L Glucose (74-99) mg/dL POC Glucose (mg/dL) 198 H (75-99) mg/dL Calcium (8.4-10.2) mg/dL 08/04/18 08/04/18 08/04/18 Range/Units 08:44 10:17 10:17 RBC (3.80-5.40) m/uL Hgb (11.4-16.0) gm/dL Hct (34.0-46.0) % Plt Count (150-450) k/uL Lymphocytes # (Manual) (1.0-4.8) k/uL APTT (22.0-30.0) sec ABG pH (7.35-7.45) ABG pCO2 47 H (35-45) mmHg ABG pO2 220 H (83-108) mmHg ABG HCO3 30 H (21-25) mmol/L ABG Total CO2 32 H (19-24) mmol/L ABG O2 Saturation 99.7 H (94-97) % Potassium (3.5-5.1) mmol/L Chloride (98-107) mmol/L Glucose (74-99) mg/dL POC Glucose (mg/dL) 169 H 176 H (75-99) mg/dL Calcium (8.4-10.2) mg/dL Microbiology - Last 24 Hours (Table) 07/30/18 09:24 Blood Culture - Preliminary Blood No Growth after 120 hours 07/30/18 08:20 Blood Culture - Preliminary Blood No Growth after 120 hours 08/01/18 23:20 Gram Stain - Final Sputum Sputum Culture - Final Rachelle albicans Assessment and Plan (1) Abdominal pain Current Visit: Yes Status: Acute Code(s): R10.9 - UNSPECIFIED ABDOMINAL PAIN SNOMED Code(s): 66082294 (2) Decreased oral intake Current Visit: Yes Status: Acute Code(s): R63.8 - OTHER SYMPTOMS AND SIGNS CONCERNING FOOD AND FLUID INTAKE SNOMED Code(s): 311307274 (3) Colonic diverticular abscess Current Visit: Yes Status: Acute Code(s): K57.20 - DVTRCLI OF LG INT W PERFORATION AND ABSCESS W/O BLEEDING SNOMED Code(s): 713240623 (4) Partial bowel obstruction Current Visit: Yes Status: Acute Code(s): K56.600 - PARTIAL INTESTINAL OBSTRUCTION, UNSPECIFIED TO CAUSE SNOMED Code(s): 88706206
[2018-08-04 12:03] LABS: Glucose,Whole Blood 186 mg/dL (75-99)
[2018-08-04 12:44] LABS: Magnesium 2.3 mg/dL (1.6-2.3); Potassium 3.5 mmol/L (3.5-5.1)
--- NOTE | 2018-08-04 13:09 | P.PN ---
Subjective Progress Note Date: 08/04/18 The patient is a 58-year-old female with no significant PMH who presented to the ED for nausea, vomiting, and dehydration with chronic abdominal pain of 6 months duration. In the ED the patient had computed tomography scan of the abdomen which showed a diverticular abscess and partial small bowel obstruction. She was started on IV fluids, and IV antibiotics with a general surgery consult and was admitted for further management. The patient opted for conservative management initially and a percutaneous drain was placed by IR on . The patient also had an elevated PTT and INR for which hematology was consulted and patient was started on Vit K after which the levels normalized. The patient was evaluated by ID and switched from Meropenem to Zosyn. On 07/30, the patient had worsening of her abdominal pain and became tachycardic, leukopenic, and had an elevated lactate. A repeat CT scan w/ contrast was obtained and showed pneumoperitoneum w/ subcutaneous emphysema. Surgery was contacted immediately and the patient was transferred to the MICU. The patient was subsequently taken for an ex-lap for perforated viscus. During the procedure , the patient was noted to have fecal peritonitis and underwent a sigmoid colectomy w/ end colostomy. The patient was transferred back to MICU post- operatively and was started on IV pressors. The patient was extubated on . She continued to require Levophed. ID recommended the patient to be switched to Unasyn and Flagyl. Furthermore, a random cortisol level was drawn and was 22, for which patient was started on hydrocortisone for suspected adrenal insufficiency. On 08/02/18, the patient was in respiratory distress and was re-intubated. Furthermore, she developed L thumb discoloration with hx of A- line placement on that wrist. Vascular surgery was consulted and recommended that in light of the severe thrombocytopenia and interval improvement of the capillary refill of the thumb area that the patient wouldn't undergo surgical intervention. Patient was seen and examined the bedside. Patient is on the ventilator with PEEP decreased from 13-10. Objective - Vital Signs Vital signs: Vital Signs Temp 97.9 F 08/04/18 08:00 Pulse 104 H 08/04/18 11:52 Resp 22 08/04/18 11:00 BP 83/53 08/04/18 11:00 Pulse Ox 99 08/04/18 11:00 Intake & Output 08/03/18 08/04/18 08/04/18 18:59 06:59 18:59 Intake Total 3716.796 6568.686 695.690 Output Total 3960 1530 1930 Balance -2236.969 600.686 -1234.310 Weight 86 kg 86 kg Intake: IV 1072 1028 380 0.45 600 50 Ampicillin-Sulbactam 3 gm 200 100 In Sodium Chloride 0.9% 100 ml @ 200 mls/hr IVPB Q6HR JESSICA Rx#:[id number] Magnesium Sulfate-D5w Pmx 100 1 gm In Dextrose/Water 1 100ml.bag @ 100 mls/hr IVPB Q1H JESSICA Rx#: [id number] Pressure bag 72 78 30 Sodium Chloride 0.45% 1, 600 250 000 ml @ 50 mls/hr IV . Q20H JESSICA Rx#:[id number] metroNIDAZOLE-NS PMX 500 200 100 100 mg In Saline 1 100ml.bag @ 100 mls/hr IVPB Q8HR JESSICA Rx#:[id number] Intake, IV Titration 446.011 3665.686 315.690 Amount Ampicillin-Sulbactam 3 gm 100 In Sodium Chloride 0.9% 100 ml @ 200 mls/hr IVPB Q6HR JESSIAC Rx#:[id number] Heparin Sod,Pork in 0.45% 96.333 NaCl 25,000 unit In 0.45 % NaCl 1 250ml.bag @ 12 UNITS/KG/HR 10 mls/hr IV .Q24H JESSICA Rx#:[id number] Insulin Regular 100 unit 24.548 12.039 15.690 In Sodium Chloride 0.9% 100 ml @ Per Protocol IV .Q0M JESSICA Rx#:[id number] Mvi, Adult No.4 with Vit 888.75 K 10 ml Trace (Conc-1Ml/ Dose) 1 ml In Amino Acid 5%-D15w+Lytes*E* 1,000 ml @ 45 mls/hr IV .[id number] JESSICA Rx#:[id number] Norepinephrine 16 mg In 149.439 5.564 Sodium Chloride 0.9% 250 ml @ Titrate IV .Q0M JESSICA Rx#:[id number] Potassium Chloride 10 meq 100 In Water For Injection 1 100ml.bag @ 100 mls/hr IVPB Q1H JESSICA Rx#: [id number] Potassium Chloride 20 meq 100 In Water For Injection 1 100ml.bag @ 50 mls/hr IVPB Q2H JESSICA Rx#: [id number] Potassium Chloride 20 meq 200 In Water For Injection 1 100ml.bag @ 50 mls/hr IVPB Q2H JESSICA Rx#: [id number] Propofol 1,000 mg In 177.044 100 100 Empty Bag 1 bag @ Titrate IV .Q0M JESSICA Rx#: [id number] Output: Drainage 500 350 500 Medial Abdomen 500 350 500 Urine 3460 1180 1430 Other: Voiding Method Indwelling Catheter Indwelling Catheter Indwelling Catheter ABP, PAP, CO, CI - Last Documented Arterial Blood Pressure 124/59 - Exam General: Sedated F, on ventilator HEENT: NC/AT, pinpoint pupils kobe Cardiovascular: S1/S2 wnl, no murmurs, rubs, or gallops Lungs: Scattered coarse breath sounds Abdominal: Colostomy bag in place with serous liquid draining, wound-vac in place, bowel sounds absent Skin: Warm, dry Extremities: Trace lower extremity edema, left thumb discoloration Neuro: Unresponsive to noxious stimuli, gag-reflex present - Labs CBC & Chem 7: 08/04/18 04:30 08/04/18 11:53 Labs: Abnormal Lab Results - Last 24 Hours (Table) 08/03/18 08/03/18 08/03/18 Range/Units 13:43 13:45 16:12 RBC (3.80-5.40) m/uL Hgb (11.4-16.0) gm/dL Hct (34.0-46.0) % Plt Count (150-450) k/uL Lymphocytes # (Manual) (1.0-4.8) k/uL APTT (22.0-30.0) sec ABG pH (7.35-7.45) ABG pCO2 (35-45) mmHg ABG pO2 (83-108) mmHg ABG HCO3 (21-25) mmol/L ABG Total CO2 (19-24) mmol/L ABG O2 Saturation (94-97) % Potassium 3.2 L (3.5-5.1) mmol/L Chloride (98-107) mmol/L Glucose (74-99) mg/dL POC Glucose (mg/dL) 143 H 139 H (75-99) mg/dL Calcium (8.4-10.2) mg/dL 08/03/18 08/03/18 08/03/18 Range/Units 17:55 20:16 20:30 RBC (3.80-5.40) m/uL Hgb (11.4-16.0) gm/dL Hct (34.0-46.0) % Plt Count (150-450) k/uL Lymphocytes # (Manual) (1.0-4.8) k/uL APTT 163.0 H* (22.0-30.0) sec ABG pH (7.35-7.45) ABG pCO2 (35-45) mmHg ABG pO2 (83-108) mmHg ABG HCO3 (21-25) mmol/L ABG Total CO2 (19-24) mmol/L ABG O2 Saturation (94-97) % Potassium (3.5-5.1) mmol/L Chloride (98-107) mmol/L Glucose (74-99) mg/dL POC Glucose (mg/dL) 150 H 121 H (75-99) mg/dL Calcium (8.4-10.2) mg/dL 08/03/18 08/03/18 08/03/18 Range/Units 21:33 22:00 23:43 RBC (3.80-5.40) m/uL Hgb (11.4-16.0) gm/dL Hct (34.0-46.0) % Plt Count (150-450) k/uL Lymphocytes # (Manual) (1.0-4.8) k/uL APTT (22.0-30.0) sec ABG pH (7.35-7.45) ABG pCO2 (35-45) mmHg ABG pO2 (83-108) mmHg ABG HCO3 (21-25) mmol/L ABG Total CO2 (19-24) mmol/L ABG O2 Saturation (94-97) % Potassium (3.5-5.1) mmol/L Chloride (98-107) mmol/L Glucose (74-99) mg/dL POC Glucose (mg/dL) 177 H 128 H 195 H (75-99) mg/dL Calcium (8.4-10.2) mg/dL 08/04/18 08/04/18 08/04/18 Range/Units 01:51 02:02 04:13 RBC (3.80-5.40) m/uL Hgb (11.4-16.0) gm/dL Hct (34.0-46.0) % Plt Count (150-450) k/uL Lymphocytes # (Manual) (1.0-4.8) k/uL APTT (22.0-30.0) sec ABG pH (7.35-7.45) ABG pCO2 (35-45) mmHg ABG pO2 (83-108) mmHg ABG HCO3 (21-25) mmol/L ABG Total CO2 (19-24) mmol/L ABG O2 Saturation (94-97) % Potassium (3.5-5.1) mmol/L Chloride (98-107) mmol/L Glucose (74-99) mg/dL POC Glucose (mg/dL) 169 H 183 H 194 H (75-99) mg/dL Calcium (8.4-10.2) mg/dL 08/04/18 08/04/18 08/04/18 Range/Units 04:30 04:30 04:30 RBC 2.66 L (3.80-5.40) m/uL Hgb 8.0 L (11.4-16.0) gm/dL Hct 23.9 L (34.0-46.0) % Plt Count 26 L (150-450) k/uL Lymphocytes # (Manual) 0.66 L (1.0-4.8) k/uL APTT 67.8 H (22.0-30.0) sec ABG pH (7.35-7.45) ABG pCO2 (35-45) mmHg ABG pO2 (83-108) mmHg ABG HCO3 (21-25) mmol/L ABG Total CO2 (19-24) mmol/L ABG O2 Saturation (94-97) % Potassium (3.5-5.1) mmol/L Chloride 109 H (98-107) mmol/L Glucose 215 H (74-99) mg/dL POC Glucose (mg/dL) (75-99) mg/dL Calcium 6.8 L (8.4-10.2) mg/dL 08/04/18 08/04/18 08/04/18 Range/Units 05:02 06:07 08:44 RBC (3.80-5.40) m/uL Hgb (11.4-16.0) gm/dL Hct (34.0-46.0) % Plt Count (150-450) k/uL Lymphocytes # (Manual) (1.0-4.8) k/uL APTT (22.0-30.0) sec ABG pH 7.47 H (7.35-7.45) ABG pCO2 (35-45) mmHg ABG pO2 191 H (83-108) mmHg ABG HCO3 31 H (21-25) mmol/L ABG Total CO2 32 H (19-24) mmol/L ABG O2 Saturation 99.6 H (94-97) % Potassium (3.5-5.1) mmol/L Chloride (98-107) mmol/L Glucose (74-99) mg/dL POC Glucose (mg/dL) 198 H 169 H (75-99) mg/dL Calcium (8.4-10.2) mg/dL 08/04/18 08/04/18 08/04/18 Range/Units 10:17 10:17 11:50 RBC (3.80-5.40) m/uL Hgb (11.4-16.0) gm/dL Hct (34.0-46.0) % Plt Count (150-450) k/uL Lymphocytes # (Manual) (1.0-4.8) k/uL APTT (22.0-30.0) sec ABG pH (7.35-7.45) ABG pCO2 47 H (35-45) mmHg ABG pO2 220 H (83-108) mmHg ABG HCO3 30 H (21-25) mmol/L ABG Total CO2 32 H (19-24) mmol/L ABG O2 Saturation 99.7 H (94-97) % Potassium (3.5-5.1) mmol/L Chloride (98-107) mmol/L Glucose (74-99) mg/dL POC Glucose (mg/dL) 176 H 186 H (75-99) mg/dL Calcium (8.4-10.2) mg/dL Microbiology - Last 24 Hours (Table) 07/30/18 09:24 Blood Culture - Preliminary Blood No Growth after 120 hours 07/30/18 08:20 Blood Culture - Preliminary Blood No Growth after 120 hours 08/01/18 23:20 Gram Stain - Final Sputum Sputum Culture - Final Rachelle albicans Assessment and Plan Plan: Septic shock secondary to diverticular abdscess rupture, s/p ex-lap w/ sigmoid colostomy POD # 5 -Patient continues to require Levophed -IV Abxs as per ID, switched to Flagyl and Unasyn -IV fluids decreased to 50 mL per hour. Received a dose of Lasix yesterday. Hypoxic respiratory failure requiring mechanical ventilation -Ventilator bundle Acute respiratory distress syndrome -Continue with the ventilator bundle -Currently on PEEP of 10, defer to critical care Hypokalemia, Hypocalcemia, and hypomagnasemia -Replaced. Will monitor Normocytic anemia with thrombocytopenia -Hematology aware. -Likely due to septic shock -HIT screen negative L thumb discoloration, impaired capillary refill -As per vascular surgery Leukopenia, resolved DVT//GI prophylaxis -IPCDs -No indication for GI prophylaxis Anticipated discharge date: 08/13/[address]: Home A total of 35 minutes was spent on the care of this complex patient more than 50 % of the time was spent in counseling and care coordination.
[2018-08-04 13:22] LABS: Glucose,Whole Blood 131 mg/dL (75-99)
[2018-08-04 14:00] LABS: Glucose,Whole Blood 121 mg/dL (75-99)
[2018-08-04] MEDS: POTASSIUM CHLORIDE 20 MEQ in WATER FOR INJECTION 1 100ML.BAG IVPB SCH ×2 (14:24→16:00)
[2018-08-04 16:11] LABS: Glucose,Whole Blood 94 mg/dL (75-99)
[2018-08-04] MEDS: HEPARIN SOD,PORK IN 0.45% NACL 25,000 UNIT in 0.45% NACL 1 250ML.BAG IV SCH (17:54)
[2018-08-04] MEDS: MVI, ADULT NO.4 WITH VIT K 10 ML, TRACE (CONC-1ML/DOSE) 1 ML, POTASSIUM CHLORIDE 40 MEQ... IV SCH ×5 (17:56)
[2018-08-04 17:57] LABS: Glucose,Whole Blood 124 mg/dL (75-99)
[2018-08-04] MEDS: SODIUM CHLORIDE 0.45% 1,000 ML IV SCH ×2 (18:55)
--- NOTE | 2018-08-04 19:55 | P.PN ---
Subjective Progress Note Date: 08/04/18 Principal diagnosis: adenopathy Intubated Objective - Vital Signs Vital signs: Vital Signs Temp 98.5 F 08/04/18 16:00 Pulse 84 08/04/18 19:44 Resp 22 08/04/18 19:00 BP 83/53 08/04/18 19:00 Pulse Ox 93 L 08/04/18 19:00 Intake & Output 08/04/18 08/04/18 08/05/18 06:59 18:59 06:59 Intake Total 2130.686 1836.930 Output Total 1530 3855 Balance 600.686 -2018.070 Weight 86 kg 86 kg Intake: IV 1028 972 0.45 50 Ampicillin-Sulbactam 3 gm 100 100 In Sodium Chloride 0.9% 100 ml @ 200 mls/hr IVPB Q6HR JESSICA Rx#:[id number] Magnesium Sulfate-D5w Pmx 100 1 gm In Dextrose/Water 1 100ml.bag @ 100 mls/hr IVPB Q1H JESSICA Rx#: [id number] Pressure bag 78 72 Sodium Chloride 0.45% 1, 600 600 000 ml @ 50 mls/hr IV . Q20H JESSICA Rx#:[id number] metroNIDAZOLE-NS PMX 500 100 200 mg In Saline 1 100ml.bag @ 100 mls/hr IVPB Q8HR JESSICA Rx#:[id number] Intake, IV Titration 1102.686 864.930 Amount Ampicillin-Sulbactam 3 gm 100 In Sodium Chloride 0.9% 100 ml @ 200 mls/hr IVPB Q6HR JESSICA Rx#:[id number] Heparin Sod,Pork in 0.45% 96.333 130.954 NaCl 25,000 unit In 0.45 % NaCl 1 250ml.bag @ 12 UNITS/KG/HR 10 mls/hr IV .Q24H JESSICA Rx#:[id number] Insulin Regular 100 unit 12.039 26.857 In Sodium Chloride 0.9% 100 ml @ Per Protocol IV .Q0M JESSICA Rx#:[id number] Mvi, Adult No.4 with Vit 888.75 K 10 ml Trace (Conc-1Ml/ Dose) 1 ml In Amino Acid 5%-D15w+Lytes*E* 1,000 ml @ 45 mls/hr IV .[id number] JESSICA Rx#:[id number] Norepinephrine 16 mg In 5.564 118.625 Sodium Chloride 0.9% 250 ml @ Titrate IV .Q0M JESSICA Rx#:[id number] Potassium Chloride 10 meq 100 In Water For Injection 1 100ml.bag @ 100 mls/hr IVPB Q1H JESSICA Rx#: [id number] Potassium Chloride 20 meq 100 In Water For Injection 1 100ml.bag @ 50 mls/hr IVPB Q2H JESSICA Rx#: [id number] Propofol 1,000 mg In 100 288.494 Empty Bag 1 bag @ Titrate IV .Q0M JESSICA Rx#: [id number] Output: Drainage 350 1000 Medial Abdomen 350 1000 Urine 1180 2855 Other: Voiding Method Indwelling Catheter Indwelling Catheter ABP, PAP, CO, CI - Last Documented Arterial Blood Pressure 115/60 - Exam Gen: Sedated, on ventilator HEENT: NC/AT, Cardiovascular: S1/S2 wnl, Lungs: Scattered coarse breath sounds anterior Abdominal: Colostomy bag in place withoutput, wound-vac in place, Skin: Warm, dry Extremities: positive lower extremity edema, extremities/finger and thumb discolored Neuro: Unresponsive - Labs CBC & Chem 7: 08/04/18 04:30 08/04/18 11:53 Labs: Abnormal Lab Results - Last 24 Hours (Table) 08/03/18 08/03/18 08/03/18 Range/Units 20:16 20:30 21:33 RBC (3.80-5.40) m/uL Hgb (11.4-16.0) gm/dL Hct (34.0-46.0) % Plt Count (150-450) k/uL Lymphocytes # (Manual) (1.0-4.8) k/uL APTT 163.0 H* (22.0-30.0) sec ABG pH (7.35-7.45) ABG pCO2 (35-45) mmHg ABG pO2 (83-108) mmHg ABG HCO3 (21-25) mmol/L ABG Total CO2 (19-24) mmol/L ABG O2 Saturation (94-97) % Chloride (98-107) mmol/L Glucose (74-99) mg/dL POC Glucose (mg/dL) 121 H 177 H (75-99) mg/dL Calcium (8.4-10.2) mg/dL 08/03/18 08/03/18 08/04/18 Range/Units 22:00 23:43 01:51 RBC (3.80-5.40) m/uL Hgb (11.4-16.0) gm/dL Hct (34.0-46.0) % Plt Count (150-450) k/uL Lymphocytes # (Manual) (1.0-4.8) k/uL APTT (22.0-30.0) sec ABG pH (7.35-7.45) ABG pCO2 (35-45) mmHg ABG pO2 (83-108) mmHg ABG HCO3 (21-25) mmol/L ABG Total CO2 (19-24) mmol/L ABG O2 Saturation (94-97) % Chloride (98-107) mmol/L Glucose (74-99) mg/dL POC Glucose (mg/dL) 128 H 195 H 169 H (75-99) mg/dL Calcium (8.4-10.2) mg/dL 08/04/18 08/04/18 08/04/18 Range/Units 02:02 04:13 04:30 RBC 2.66 L (3.80-5.40) m/uL Hgb 8.0 L (11.4-16.0) gm/dL Hct 23.9 L (34.0-46.0) % Plt Count 26 L (150-450) k/uL Lymphocytes # (Manual) 0.66 L (1.0-4.8) k/uL APTT (22.0-30.0) sec ABG pH (7.35-7.45) ABG pCO2 (35-45) mmHg ABG pO2 (83-108) mmHg ABG HCO3 (21-25) mmol/L ABG Total CO2 (19-24) mmol/L ABG O2 Saturation (94-97) % Chloride (98-107) mmol/L Glucose (74-99) mg/dL POC Glucose (mg/dL) 183 H 194 H (75-99) mg/dL Calcium (8.4-10.2) mg/dL 08/04/18 08/04/18 08/04/18 Range/Units 04:30 04:30 05:02 RBC (3.80-5.40) m/uL Hgb (11.4-16.0) gm/dL Hct (34.0-46.0) % Plt Count (150-450) k/uL Lymphocytes # (Manual) (1.0-4.8) k/uL APTT 67.8 H (22.0-30.0) sec ABG pH 7.47 H (7.35-7.45) ABG pCO2 (35-45) mmHg ABG pO2 191 H (83-108) mmHg ABG HCO3 31 H (21-25) mmol/L ABG Total CO2 32 H (19-24) mmol/L ABG O2 Saturation 99.6 H (94-97) % Chloride 109 H (98-107) mmol/L Glucose 215 H (74-99) mg/dL POC Glucose (mg/dL) (75-99) mg/dL Calcium 6.8 L (8.4-10.2) mg/dL 08/04/18 08/04/18 08/04/18 Range/Units 06:07 08:44 10:17 RBC (3.80-5.40) m/uL Hgb (11.4-16.0) gm/dL Hct (34.0-46.0) % Plt Count (150-450) k/uL Lymphocytes # (Manual) (1.0-4.8) k/uL APTT (22.0-30.0) sec ABG pH (7.35-7.45) ABG pCO2 47 H (35-45) mmHg ABG pO2 220 H (83-108) mmHg ABG HCO3 30 H (21-25) mmol/L ABG Total CO2 32 H (19-24) mmol/L ABG O2 Saturation 99.7 H (94-97) % Chloride (98-107) mmol/L Glucose (74-99) mg/dL POC Glucose (mg/dL) 198 H 169 H (75-99) mg/dL Calcium (8.4-10.2) mg/dL 08/04/18 08/04/18 08/04/18 Range/Units 10:17 11:50 13:15 RBC (3.80-5.40) m/uL Hgb (11.4-16.0) gm/dL Hct (34.0-46.0) % Plt Count (150-450) k/uL Lymphocytes # (Manual) (1.0-4.8) k/uL APTT (22.0-30.0) sec ABG pH (7.35-7.45) ABG pCO2 (35-45) mmHg ABG pO2 (83-108) mmHg ABG HCO3 (21-25) mmol/L ABG Total CO2 (19-24) mmol/L ABG O2 Saturation (94-97) % Chloride (98-107) mmol/L Glucose (74-99) mg/dL POC Glucose (mg/dL) 176 H 186 H 131 H (75-99) mg/dL Calcium (8.4-10.2) mg/dL 08/04/18 08/04/18 Range/Units 13:57 17:55 RBC (3.80-5.40) m/uL Hgb (11.4-16.0) gm/dL Hct (34.0-46.0) % Plt Count (150-450) k/uL Lymphocytes # (Manual) (1.0-4.8) k/uL APTT (22.0-30.0) sec ABG pH (7.35-7.45) ABG pCO2 (35-45) mmHg ABG pO2 (83-108) mmHg ABG HCO3 (21-25) mmol/L ABG Total CO2 (19-24) mmol/L ABG O2 Saturation (94-97) % Chloride (98-107) mmol/L Glucose (74-99) mg/dL POC Glucose (mg/dL) 121 H 124 H (75-99) mg/dL Calcium (8.4-10.2) mg/dL Microbiology - Last 24 Hours (Table) 07/30/18 09:24 Blood Culture - Preliminary Blood No Growth after 120 hours 07/30/18 08:20 Blood Culture - Preliminary Blood No Growth after 120 hours 08/01/18 23:20 Gram Stain - Final Sputum Sputum Culture - Final Rachelle albicans Assessment and Plan Plan: (1) Thrombocytopenia - Plt count continues to be low but stable, - HIT ab negative = Transfuse for symptoms or plt <10,000 - CBC daily - No asa, NSAIDs, anticoagulation SCDs for DVT prophylaxis (2) Anemia - No intervention today Hgb stable Transfuse for Hgb < 7 or if symptomatic (3) Coagulopathy - Coags have been WNL after vit K adm. - No s/s bleeding at this time. - No evidence to suggest DIC at this time. Cont intermittent coag studies (4) Small Bowel Obstruction with Perforation and frcal perotonitis: - Status Post Sigmoig colectomy and end colostomy Angie Courtney, [employer]
[2018-08-04 19:58] LABS: Glucose,Whole Blood 130 mg/dL (75-99)
[2018-08-04 22:00] LABS: Glucose,Whole Blood 146 mg/dL (75-99)
[2018-08-04 22:24] LABS: HGB 7.5 gm/dL (11.4-16.0); MCH 29.3 pg (25.0-35.0); MCHC 32.7 g/dL (31.0-37.0); MCV 89.7 fL (80.0-100.0); RBC 2.57 m/uL (3.80-5.40); RDW 14.8 % (11.5-15.5)
[2018-08-04 22:29] LABS: Platelet Count 31 k/uL (150-450)
[2018-08-04 22:32] LABS: Anion Gap 2 mmol/L; Blood Urea Nitrogen 15 mg/dL (7-17); Calcium 6.6 mg/dL (8.4-10.2); Carbon Dioxide 32 mmol/L (22-30); Chloride 108 mmol/L (98-107); Glucose 142 mg/dL (74-99); Potassium 3.7 mmol/L (3.5-5.1); Sodium 142 mmol/L (137-145)
--- NOTE | 2018-08-04 23:03 | PN ---
PROGRESS NOTE DATE OF SERVICE: 08/04/2018 REASON FOR FOLLOWUP: Abdominal sepsis from ruptured diverticulitis. INTERVAL HISTORY: The patient is currently afebrile. The patient is currently on and off his pressor support in the form of Levophed. Patient in fact is currently stable on 50% and no other clinical changes per the nursing staff. PHYSICAL EXAMINATION: Blood pressure 108/26 with a pulse of 122, temperature 98.1. She is 93% on 50% FiO2. General description is a middle-aged female intubated on the vent. HEENT EXAMINATION: The patient is orally intubated. LUNGS: Unlabored breathing with decreased breath sounds in the bases. No wheeze. HEART: S1, S2. Regular rate and rhythm. ABDOMEN: Soft. The midline surgical wound covered with wound V.A.C. EXTREMITIES: No edema of the feet. LABS: Hemoglobin 8 with a white count of 5.1. BUN of 14, creatinine 0.56. Abdominal cultures with E coli, alpha and beta hemolytic Staphylococcus, anaerobic gram-negative bacilli. DIAGNOSTIC IMPRESSION AND PLAN: Patient with abdominal sepsis in this patient who did have a perforated diverticulitis, status post diverting colostomy with extensive abdominal surgery. The patient is currently covered with Unasyn and Flagyl. The patient is afebrile. Her white count is normal. Prognosis is still guarded. Will continue to monitor the patient closely and continue with supportive care. MMODL / IJN: [id number] /
[2018-08-05 00:07] LABS: Glucose,Whole Blood 152 mg/dL (75-99)
[2018-08-05] MEDS: HYDROmorphone 0.5 MG/0.5 ML SYRINGE IVP PRN ×4 (00:42→22:15)
[2018-08-05 02:05] LABS: Glucose,Whole Blood 158 mg/dL (75-99)
[2018-08-05 03:54] LABS: ABG Base Excess 7.4 mmol/L; ABG HCO3 32 mmol/L (21-25); ABG Oxygen Saturation 97.6 % (94-97); ABG PCO2 50 mmHg (35-45); ABG PH 7.41 (7.35-7.45); ABG PO2 95 mmHg (83-108); ABG TCO2 34 mmol/L (19-24)
[2018-08-05 04:01] LABS: Glucose,Whole Blood 161 mg/dL (75-99)
[2018-08-05 04:17] LABS: Basophils % (A) 1 %; Eosinophils # (A) 0.1 k/uL (0-0.7); Eosinophils % (A) 2 %; HCT 22.5 % (34.0-46.0); HGB 7.3 gm/dL (11.4-16.0); Lymphocytes # (A) 0.5 k/uL (1.0-4.8); Lymphocytes % (A) 12 %; MCH 29.1 pg (25.0-35.0); MCHC 32.3 g/dL (31.0-37.0); MCV 90.2 fL (80.0-100.0); Mean Platelet Volume 10.4; Monocytes # (A) 0.1 k/uL (0-1.0); Monocytes % (A) 3 %; Neutrophils % (A) 80 %; RBC 2.49 m/uL (3.80-5.40); RDW 14.9 % (11.5-15.5); WBC 3.7 k/uL (3.8-10.6)
[2018-08-05 04:26] LABS: Ionized Calcium 4.4 mg/dL (4.5-5.3)
[2018-08-05 04:27] LABS: Platelet Count 34 k/uL (150-450)
[2018-08-05 04:33] LABS: ALT 23 U/L (9-52); AST 36 U/L (14-36); Albumin 1.6 g/dL (3.5-5.0); Alkaline Phosphatase 87 U/L (38-126); Anion Gap 1 mmol/L; Blood Urea Nitrogen 17 mg/dL (7-17); Calcium 6.7 mg/dL (8.4-10.2); Carbon Dioxide 31 mmol/L (22-30); Chloride 109 mmol/L (98-107); Glucose 139 mg/dL (74-99); Magnesium 2.2 mg/dL (1.6-2.3); Phosphorus 3.3 mg/dL (2.5-4.5); Potassium 3.8 mmol/L (3.5-5.1); Sodium 141 mmol/L (137-145); Total Bilirubin 0.4 mg/dL (0.2-1.3); Total Protein 4.3 g/dL (6.3-8.2)
[2018-08-05] MEDS ORDERED: Potassium Replacement Protocol 1 EACH MISC MISCELLANE PRN (04:50)
[2018-08-05 04:54] LABS: Polychromasia Present
[2018-08-05] MEDS: METOCLOPRAMIDE 5 MG/ML 2 ML VIAL IVP SCH ×3 (05:44→19:07)
[2018-08-05] MEDS: AMPICILLIN-SULBACTAM 3 GM in SODIUM CHLORIDE 0.9% 100 ML IVPB SCH ×3 (05:44→19:06)
[2018-08-05] MEDS: POTASSIUM CHLORIDE 10 MEQ in WATER FOR INJECTION 1 100ML.BAG IVPB SCH ×2 (05:44→07:06)
[2018-08-05 06:03] LABS: Glucose,Whole Blood 122 mg/dL (75-99)
--- NOTE | 2018-08-05 07:19 | XR ---
EXAMINATION TYPE: XR chest 1V portable DATE OF EXAM: 08/05/2018 CLINICAL HISTORY: Difficulty breathing progress study. TECHNIQUE: Single AP portable semiupright view of the chest is obtained. COMPARISON: Chest x-ray from one day earlier and older studies. FINDINGS: An endotracheal tube, orogastric tube, and left subclavian central venous catheter are all stable in appearance. Cardiac silhouette size is stable and within normal limits. Bilateral central alveolar and interstiti al opacities remain present. There is small left pleural effusion noted. Osseous structures are intac t. IMPRESSION: Redemonstration of central alveolar and interstitial edema and/or infiltrates felt stable with slightly more prominent small left pleural effusion noted.
[2018-08-05] MEDS: IPRATROPIUM-ALBUTEROL 3 ML NEB INHALATION SCH ×4 (07:21→19:13)
[2018-08-05] MEDS: PROPOFOL 1,000 MG in EMPTY BAG 1 BAG IV SCH ×4 (07:47→21:27)
[2018-08-05] MEDS: HYDROCORTISONE SUCCINATE 100 MG/2 ML VIAL IV SCH ×2 (08:35→17:37)
[2018-08-05 08:36] LABS: Glucose,Whole Blood 125 mg/dL (75-99)
[2018-08-05] MEDS: PANTOPRAZOLE 40 MG/10 ML VIAL IVP SCH (08:36)
[2018-08-05] MEDS: CHLORHEXIDINE GLUCONATE 15 ML CUP MUCOUS MEM SCH ×2 (08:36→22:28)
[2018-08-05] MEDS: metroNIDAZOLE-NS PMX 500 MG in SALINE 1 100ML.BAG IVPB SCH ×2 (08:37→17:37)
--- NOTE | 2018-08-05 10:42 | P.PN ---
Subjective Progress Note Date: 08/05/18 The patient is a 58-year-old female with no significant PMH who presented to the ED for nausea, vomiting, and dehydration with chronic abdominal pain of 6 months duration. In the ED the patient had computed tomography scan of the abdomen which showed a diverticular abscess and partial small bowel obstruction. She was started on IV fluids, and IV antibiotics with a general surgery consult and was admitted for further management. The patient opted for conservative management initially and a percutaneous drain was placed by IR on . The patient also had an elevated PTT and INR for which hematology was consulted and patient was started on Vit K after which the levels normalized. The patient was evaluated by ID and switched from Meropenem to Zosyn. On 07/30, the patient had worsening of her abdominal pain and became tachycardic, leukopenic, and had an elevated lactate. A repeat CT scan w/ contrast was obtained and showed pneumoperitoneum w/ subcutaneous emphysema. Surgery was contacted immediately and the patient was transferred to the MICU. The patient was subsequently taken for an ex-lap for perforated viscus. During the procedure , the patient was noted to have fecal peritonitis and underwent a sigmoid colectomy w/ end colostomy. The patient was transferred back to MICU post- operatively and was started on IV pressors. The patient was extubated on . She continued to require Levophed. ID recommended the patient to be switched to Unasyn and Flagyl. Furthermore, a random cortisol level was drawn and was 22, for which patient was started on hydrocortisone for suspected adrenal insufficiency. On 08/02/18, the patient was in respiratory distress and was re-intubated. Furthermore, she developed L thumb discoloration with hx of A- line placement on that wrist. Vascular surgery was consulted and recommended that in light of the severe thrombocytopenia and interval improvement of the capillary refill of the thumb area that the patient wouldn't undergo surgical intervention. Patient was seen and examined at the bedside on 08/05/2018. The patient continues minimal ventilator, with PEEP decreased to 5. Her Levophed requirements had also decreased to 2 mcg. Objective - Vital Signs Vital signs: Vital Signs Temp 98.2 F 08/05/18 08:00 Pulse 105 H 08/05/18 10:00 Resp 27 H 08/05/18 10:00 BP 83/53 08/05/18 08:00 Pulse Ox 93 L 08/05/18 10:00 Intake & Output 08/04/18 08/05/18 08/05/18 18:59 06:59 18:59 Intake Total 9067.455 5862.009 663.875 Output Total 3855 1160 155 Balance -2018.070 -96.991 508.875 Weight 86 kg 79.8 kg Intake: IV 972 816 554 0.9 NACL 30 Ampicillin-Sulbactam 3 gm 100 100 100 In Sodium Chloride 0.9% 100 ml @ 200 mls/hr IVPB Q6HR JESSICA Rx#:[id number] Potassium Chloride 10 meq 100 In Water For Injection 1 100ml.bag @ 100 mls/hr IVPB Q1H JESSICA Rx#: [id number] Pressure bag 72 66 24 Sodium Chloride 0.45% 1, 600 550 200 000 ml @ 50 mls/hr IV . Q20H JESSICA Rx#:[id number] metroNIDAZOLE-NS PMX 500 200 100 100 mg In Saline 1 100ml.bag @ 100 mls/hr IVPB Q8HR JESSICA Rx#:[id number] Intake, IV Titration 864.930 247.009 109.875 Amount Ampicillin-Sulbactam 3 gm 100 In Sodium Chloride 0.9% 100 ml @ 200 mls/hr IVPB Q6HR JESSICA Rx#:[id number] Heparin Sod,Pork in 0.45% 130.954 NaCl 25,000 unit In 0.45 % NaCl 1 250ml.bag @ 12 UNITS/KG/HR 10 mls/hr IV .Q24H JESSICA Rx#:[id number] Insulin Regular 100 unit 26.857 16.867 In Sodium Chloride 0.9% 100 ml @ Per Protocol IV .Q0M JESSICA Rx#:[id number] Mvi, Adult No.4 with Vit 90 K 10 ml Trace (Conc-1Ml/ Dose) 1 ml Potassium Chloride 40 meq Potassium Phosphate 10 mmol In Amino Acid 5%-D15w+Lytes* E* 1,000 ml @ 45 mls/hr IV .Q23H JESSICA Rx#: [id number] Norepinephrine 16 mg In 118.625 49.216 19.875 Sodium Chloride 0.9% 250 ml @ Titrate IV .Q0M JESSICA Rx#:[id number] Potassium Chloride 10 meq 100 In Water For Injection 1 100ml.bag @ 100 mls/hr IVPB Q1H JESSICA Rx#: [id number] Potassium Chloride 20 meq 100 In Water For Injection 1 100ml.bag @ 50 mls/hr IVPB Q2H JESSICA Rx#: [id number] Propofol 1,000 mg In 288.494 180.926 Empty Bag 1 bag @ Titrate IV .Q0M JESSICA Rx#: [id number] Output: Drainage 1000 500 Medial Abdomen 1000 500 Urine 2855 560 155 Stool 100 Other: Voiding Method Indwelling Catheter Indwelling Catheter ABP, PAP, CO, CI - Last Documented Arterial Blood Pressure 117/51 - Exam General: Sedated F, on ventilator HEENT: NC/AT, pinpoint pupils kobe Cardiovascular: S1/S2 wnl, no murmurs, rubs, or gallops Lungs: Scattered coarse breath sounds Abdominal: Colostomy bag in place with brown stool, wound-vac in place, bowel sounds hypoactive Skin: Warm, dry Extremities: Trace lower extremity edema, left thumb discoloration Neuro: Unresponsive to noxious stimuli, gag-reflex present - Labs CBC & Chem 7: 08/05/18 04:04 08/05/18 04:04 Labs: Abnormal Lab Results - Last 24 Hours (Table) 08/04/18 08/04/18 08/04/18 Range/Units 11:50 13:15 13:57 WBC (3.8-10.6) k/uL RBC (3.80-5.40) m/uL Hgb (11.4-16.0) gm/dL Hct (34.0-46.0) % Plt Count (150-450) k/uL Lymphocytes # (1.0-4.8) k/uL APTT (22.0-30.0) sec ABG pCO2 (35-45) mmHg ABG HCO3 (21-25) mmol/L ABG Total CO2 (19-24) mmol/L ABG O2 Saturation (94-97) % Chloride (98-107) mmol/L Carbon Dioxide (22-30) mmol/L Glucose (74-99) mg/dL POC Glucose (mg/dL) 186 H 131 H 121 H (75-99) mg/dL Calcium (8.4-10.2) mg/dL Ionized Calcium Abbi (4.5-5.3) mg/dL Total Protein (6.3-8.2) g/dL Albumin (3.5-5.0) g/dL 08/04/18 08/04/18 08/04/18 Range/Units 17:55 19:55 21:58 WBC (3.8-10.6) k/uL RBC (3.80-5.40) m/uL Hgb (11.4-16.0) gm/dL Hct (34.0-46.0) % Plt Count (150-450) k/uL Lymphocytes # (1.0-4.8) k/uL APTT (22.0-30.0) sec ABG pCO2 (35-45) mmHg ABG HCO3 (21-25) mmol/L ABG Total CO2 (19-24) mmol/L ABG O2 Saturation (94-97) % Chloride (98-107) mmol/L Carbon Dioxide (22-30) mmol/L Glucose (74-99) mg/dL POC Glucose (mg/dL) 124 H 130 H 146 H (75-99) mg/dL Calcium (8.4-10.2) mg/dL Ionized Calcium Abbi (4.5-5.3) mg/dL Total Protein (6.3-8.2) g/dL Albumin (3.5-5.0) g/dL 08/04/18 08/04/18 08/05/18 Range/Units 22:04 22:04 00:05 WBC (3.8-10.6) k/uL RBC 2.57 L (3.80-5.40) m/uL Hgb 7.5 L (11.4-16.0) gm/dL Hct 23.0 L (34.0-46.0) % Plt Count 31 L (150-450) k/uL Lymphocytes # (1.0-4.8) k/uL APTT (22.0-30.0) sec ABG pCO2 (35-45) mmHg ABG HCO3 (21-25) mmol/L ABG Total CO2 (19-24) mmol/L ABG O2 Saturation (94-97) % Chloride 108 H (98-107) mmol/L Carbon Dioxide 32 H (22-30) mmol/L Glucose 142 H (74-99) mg/dL POC Glucose (mg/dL) 152 H (75-99) mg/dL Calcium 6.6 L (8.4-10.2) mg/dL Ionized Calcium Abbi (4.5-5.3) mg/dL Total Protein (6.3-8.2) g/dL Albumin (3.5-5.0) g/dL 08/05/18 08/05/18 08/05/18 Range/Units 02:03 03:50 03:58 WBC (3.8-10.6) k/uL RBC (3.80-5.40) m/uL Hgb (11.4-16.0) gm/dL Hct (34.0-46.0) % Plt Count (150-450) k/uL Lymphocytes # (1.0-4.8) k/uL APTT (22.0-30.0) sec ABG pCO2 50 H (35-45) mmHg ABG HCO3 32 H (21-25) mmol/L ABG Total CO2 34 H (19-24) mmol/L ABG O2 Saturation 97.6 H (94-97) % Chloride (98-107) mmol/L Carbon Dioxide (22-30) mmol/L Glucose (74-99) mg/dL POC Glucose (mg/dL) 158 H 161 H (75-99) mg/dL Calcium (8.4-10.2) mg/dL Ionized Calcium Abbi (4.5-5.3) mg/dL Total Protein (6.3-8.2) g/dL Albumin (3.5-5.0) g/dL 08/05/18 08/05/18 08/05/18 Range/Units 04:04 04:04 05:10 WBC 3.7 L (3.8-10.6) k/uL RBC 2.49 L (3.80-5.40) m/uL Hgb 7.3 L (11.4-16.0) gm/dL Hct 22.5 L (34.0-46.0) % Plt Count 34 L (150-450) k/uL Lymphocytes # 0.5 L (1.0-4.8) k/uL APTT 76.8 H (22.0-30.0) sec ABG pCO2 (35-45) mmHg ABG HCO3 (21-25) mmol/L ABG Total CO2 (19-24) mmol/L ABG O2 Saturation (94-97) % Chloride 109 H (98-107) mmol/L Carbon Dioxide 31 H (22-30) mmol/L Glucose 139 H (74-99) mg/dL POC Glucose (mg/dL) (75-99) mg/dL Calcium 6.7 L (8.4-10.2) mg/dL Ionized Calcium Abbi 4.4 L (4.5-5.3) mg/dL Total Protein 4.3 L (6.3-8.2) g/dL Albumin 1.6 L (3.5-5.0) g/dL 08/05/18 08/05/18 Range/Units 06:00 08:21 WBC (3.8-10.6) k/uL RBC (3.80-5.40) m/uL Hgb (11.4-16.0) gm/dL Hct (34.0-46.0) % Plt Count (150-450) k/uL Lymphocytes # (1.0-4.8) k/uL APTT (22.0-30.0) sec ABG pCO2 (35-45) mmHg ABG HCO3 (21-25) mmol/L ABG Total CO2 (19-24) mmol/L ABG O2 Saturation (94-97) % Chloride (98-107) mmol/L Carbon Dioxide (22-30) mmol/L Glucose (74-99) mg/dL POC Glucose (mg/dL) 122 H 125 H (75-99) mg/dL Calcium (8.4-10.2) mg/dL Ionized Calcium Abbi (4.5-5.3) mg/dL Total Protein (6.3-8.2) g/dL Albumin (3.5-5.0) g/dL Microbiology - Last 24 Hours (Table) 07/30/18 09:24 Blood Culture - Preliminary Blood No Growth after 120 hours 07/30/18 08:20 Blood Culture - Preliminary Blood No Growth after 120 hours 08/01/18 23:20 Gram Stain - Final Sputum Sputum Culture - Final Rachelle albicans Assessment and Plan Plan: Septic shock secondary to diverticular abdscess rupture, s/p ex-lap w/ sigmoid colostomy POD # 6 -Levophed requirements decrease to 2 mcgs -IV Abxs as per ID, currently on Flagyl and Unasyn -IV fluids at 50 mL per hour. Received a dose of Lasix yesterday -As per the critical care service Hypoxic respiratory failure requiring mechanical ventilation -Ventilator bundle Acute respiratory distress syndrome -Continue with the ventilator bundle -PEEP decreased to 5 Hypokalemia, Hypocalcemia -Replaced. Will monitor Normocytic anemia with thrombocytopenia -Hematology aware. -Likely due to septic shock -HIT screen negative L thumb discoloration, impaired capillary refill -As per vascular surgery -Patient is on the Heparin infusion Diabetes Mellitus -Insulin drip DVT//GI prophylaxis -Heparin infusion -Protonix Anticipated discharge date: 08/13/[address]: Home A total of 35 minutes was spent on the care of this complex patient more than 50 % of the time was spent in counseling and care coordination.
--- NOTE | 2018-08-05 10:43 | PN ---
PROGRESS NOTE ADDENDUM: Please note critical care time 35 minutes. ELENA / TEGANN: [id number] /
--- NOTE | 2018-08-05 10:45 | PN ---
PROGRESS NOTE DATE OF SERVICE: 08/05/2018 A 58-year-old female admitted back on July 26 for abdominal pain. She was found on the radiographic studies to have a bowel obstruction. She is currently postop day #6, status post exploratory laparotomy, sigmoid colectomy, colostomy, and appendectomy. The patient was thought to have acute abdominal sepsis and diverticular abscess. She was initially extubated on July 31, but unfortunately she developed acute hypoxemic respiratory failure and was reintubated on 08/01. Unfortunately, the re-intubation was necessitated by the fact that she developed a septic acute respiratory distress syndrome (ARDS). Anyway, she initially was on 100% and PEEP of 13. We may be able to wean her down back to 50% and 5 of PEEP. Today, she is on the volume assist-control mode rate of 22, tidal volume 350, FiO2 of 50%, PEEP of 5. Blood gases show PO2 of 95, a pCO2 of 50, pH 7.41. The patient's CVP is running 14 to 18. She is on propofol 40 mcg/kg per minute, a 0.45 IV at 50 mL an hour, norepinephrine, which has been weaned down to 4 mcg/minute TPN at 45 mL/hour, heparin via weight based protocol and insulin at 1.5 units/hour. The patient's chest x-ray still shows diffuse bilateral infiltrates, but overall, the chest x-ray is improved. Microbiologic data, she is demonstrating E coli, alpha hemolytic strep, beta-hemolytic strep, and a number of different anaerobic bacilli. She is currently on Unasyn and Flagyl. ID is following along. She has made progress. She is not ready for extubation as yet. We will do a daily interruption of sedation. Current vital signs are reviewed. Her temperature is 98.2, heart rate 79, respiratory rate 22, blood pressure is 90/53, central venous pressure is 14, saturations are mid 90s. Appears in no acute distress, currently sedated. She has got an orally placed endotracheal tube and NG tube. HEENT examination is grossly unremarkable. Neck is supple. Full range of motion. No adenopathy or thyromegaly. Neck veins are flat. Cardiovascular examination reveals regular rhythm and rate. Heart rate 80 beats per minute. S1, S2 normal. Lungs reveal coarse rhonchi. Breath sounds are diminished. No wheezes or crackles. Breath sounds are equal bilaterally. Abdomen is soft. No bowel sounds are noted. Her colostomy is noted. Extremities are intact. She has got significant edema and anasarca. Skin reveals areas of ecchymoses. The left thumb is dusky. Her neurologic examination could not be properly evaluated given her current level of sedation. LABORATORY DATA: Reviewed. White count 3.7, hemoglobin 7.3, hematocrit 22.5, platelet count 34,000, PTT is 76.8. Blood gases as mentioned show PO2 of 95, a pCO2 of 50, pH of 7.41. The blood gases are consistent with a mixed acid-base disturbance including a respiratory acidosis and metabolic alkalosis. Over the last 3 days she is -3 L, -1.6 L and -2 L yesterday. Drips are as mentioned. Medications are reviewed. She remains on hydrocortisone for a relative adrenal insufficiency and Unasyn and Flagyl are the antibiotics. She is also getting her updrafts. I have been dosing her Lasix daily depending on her I's and O's and her overall fluid status. No Lasix today. ASSESSMENT: 1. Postoperative day #6, status post exploratory laparotomy, sigmoid colectomy with colostomy and appendectomy secondary to acute abdominal sepsis and diverticular abscess. 2. Routine postoperative ventilator management with initial extubation on July 31 and re-intubation on 08/01 for acute hypoxemic respiratory failure. 3. Acute respiratory distress syndrome, secondary to abdominal sepsis. 4. Hyperchloremic non-anion gap metabolic acidosis, much improved. 5. History of anion gap metabolic acidosis secondary to lactic acidemia, resolved. 6. History of chronic abdominal pain. 7. Leukopenia. 8. Sepsis related thrombocytopenia. 9. Gastroesophageal reflux disease. 10.Relative adrenal insufficiency. 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 PLAN: The patient's overall respiratory status has improved in that she has been weaned down from 100% and 13 of PEEP to 50% and 5 of PEEP. Blood gases are reasonable and do show a mixed acid-base disturbance including accommodate combined respiratory acidosis, metabolic alkalosis. The patient will have a daily interruption of sedation today. She is not ready for weaning and extubation. I will speak to her today. She remains on Unasyn and Flagyl. Her microbiology has been evaluated. ID is following along. Surgery is following along. Overall prognosis remains very guarded. This poor lady may end up with a tracheostomy. Additional recommendations and suggestions are forthcoming. A new art line was placed on the right side a couple days ago. MMODL / IJN: [id number] /
[2018-08-05] MEDS: HEPARIN SOD,PORK IN 0.45% NACL 25,000 UNIT in 0.45% NACL 1 250ML.BAG IV SCH (10:47)
[2018-08-05 10:49] LABS: Glucose,Whole Blood 108 mg/dL (75-99)
[2018-08-05 12:20] LABS: Glucose,Whole Blood 101 mg/dL (75-99)
--- NOTE | 2018-08-05 12:31 | PN ---
PROGRESS NOTE A 58-year-old female patient had a colostomy for a large bowel obstruction. Patient has been on vent since surgery. She was on Levophed and today her colostomy has some output, Levophed has been stopped. Patient had a arterial line placed in the left radial artery after surgery which was removed. The patient has some discoloration of the skin of the left hand. The pulp of the thumb, the rest of the fingers are normal in color, by Doppler ulnar has a good signal, radial has no signal. Patient has some capillary refill. Patient is on heparin. Discussed with the family. We will watch closely and all the risks and complications have been discussed with the . He understands. MMODL / IJN: [id number] /
--- NOTE | 2018-08-05 14:09 | P.PN ---
Subjective Progress Note Date: 08/05/18 CHIEF COMPLAINT: Perforated diverticulitis. HISTORY OF PRESENT ILLNESS: The patient is a 58-year-old female status post colectomy with colostomy creation, small bowel resection, appendectomy, POD 6. Patient on full ventilatory support. Long discussion with nursing reports moderate output from wound VAC. Family is at bedside. Patient was receiving daily lasix but held today. She has trial of sedation holiday. Decreased amount of pressors from 20 mcg of Levophed. PHYSICAL EXAM: VITAL SIGNS: Reviewed GENERAL: Well-developed HEENT: No sclera icterus. Extraocular movements grossly intact. Head is atraumatic, normocephalic. NECK: Supple without lymphadenopathy. CHEST: Full ventilatory support with mechanical ventilation. CARDIOVASCULAR: Palpable 2+ radial pulses. Tachycardic ABDOMEN: Soft. Abdominal wound vac in place with serous drainage MUSCULOSKELETAL: No clubbing. Has edema lower extremities. NEUROLOGIC: Deferred due to sedation PSYCH: Deferred due to sedation SKIN: Poorly perfused. Moderate weeping of the skin LABS: Reviewed ASSESSMENT: 1. s/p colectomy 2. Sepsis PLAN: 1. Continue antibiotics. 2. Has wound vac that will need scheduled changed 3. Continue vent management. 4. Any further surgical intervention deferred to index operating surgeon. 5. Overall patient in guarded condition. Critical care time 21 minutes Objective - Vital Signs Vital signs: Vital Signs Temp 98.2 F 08/05/18 08:00 Pulse 112 H 08/05/18 12:00 Resp 30 H 08/05/18 12:00 BP 83/53 08/05/18 08:00 Pulse Ox 96 08/05/18 12:00 Intake & Output 08/04/18 08/05/18 08/05/18 18:59 06:59 18:59 Intake Total 0946.461 9503.009 984.366 Output Total 3855 1160 780 Balance -2018.070 -96.991 204.366 Weight 86 kg 79.8 kg Intake: IV 972 816 686 0.45 100 0.9 NACL 50 Ampicillin-Sulbactam 3 gm 100 100 100 In Sodium Chloride 0.9% 100 ml @ 200 mls/hr IVPB Q6HR JESSICA Rx#:[id number] Potassium Chloride 10 meq 100 In Water For Injection 1 100ml.bag @ 100 mls/hr IVPB Q1H JESSICA Rx#: [id number] Pressure bag 72 66 36 Sodium Chloride 0.45% 1, 600 550 200 000 ml @ 50 mls/hr IV . Q20H JESSICA Rx#:[id number] metroNIDAZOLE-NS PMX 500 200 100 100 mg In Saline 1 100ml.bag @ 100 mls/hr IVPB Q8HR JESSICA Rx#:[id number] Intake, IV Titration 864.930 247.009 298.366 Amount Ampicillin-Sulbactam 3 gm 100 In Sodium Chloride 0.9% 100 ml @ 200 mls/hr IVPB Q6HR JESSICA Rx#:[id number] Heparin Sod,Pork in 0.45% 130.954 112.612 NaCl 25,000 unit In 0.45 % NaCl 1 250ml.bag @ 12 UNITS/KG/HR 10 mls/hr IV .Q24H JESSICA Rx#:[id number] Insulin Regular 100 unit 26.857 16.867 In Sodium Chloride 0.9% 100 ml @ Per Protocol IV .Q0M JESSICA Rx#:[id number] Mvi, Adult No.4 with Vit 90 K 10 ml Trace (Conc-1Ml/ Dose) 1 ml Potassium Chloride 40 meq Potassium Phosphate 10 mmol In Amino Acid 5%-D15w+Lytes* E* 1,000 ml @ 45 mls/hr IV .Q23H JESSICA Rx#: [id number] Norepinephrine 16 mg In 118.625 49.216 19.875 Sodium Chloride 0.9% 250 ml @ Titrate IV .Q0M JESSICA Rx#:[id number] Potassium Chloride 10 meq 100 In Water For Injection 1 100ml.bag @ 100 mls/hr IVPB Q1H JESSICA Rx#: [id number] Potassium Chloride 20 meq 100 In Water For Injection 1 100ml.bag @ 50 mls/hr IVPB Q2H JESSICA Rx#: [id number] Propofol 1,000 mg In 288.494 180.926 75.879 Empty Bag 1 bag @ Titrate IV .Q0M JESSICA Rx#: [id number] Output: Drainage 1000 500 500 Medial Abdomen 1000 500 500 Urine 2855 560 280 Stool 100 Other: Voiding Method Indwelling Catheter Indwelling Catheter ABP, PAP, CO, CI - Last Documented Arterial Blood Pressure 144/59 - Labs CBC & Chem 7: 08/06/18 05:00 08/06/18 05:00 Labs: Abnormal Lab Results - Last 24 Hours (Table) 08/04/18 08/04/18 08/04/18 Range/Units 17:55 19:55 21:58 WBC (3.8-10.6) k/uL RBC (3.80-5.40) m/uL Hgb (11.4-16.0) gm/dL Hct (34.0-46.0) % Plt Count (150-450) k/uL Lymphocytes # (1.0-4.8) k/uL APTT (22.0-30.0) sec ABG pCO2 (35-45) mmHg ABG HCO3 (21-25) mmol/L ABG Total CO2 (19-24) mmol/L ABG O2 Saturation (94-97) % Chloride (98-107) mmol/L Carbon Dioxide (22-30) mmol/L Glucose (74-99) mg/dL POC Glucose (mg/dL) 124 H 130 H 146 H (75-99) mg/dL Calcium (8.4-10.2) mg/dL Ionized Calcium Abbi (4.5-5.3) mg/dL Total Protein (6.3-8.2) g/dL Albumin (3.5-5.0) g/dL 08/04/18 08/04/18 08/05/18 Range/Units 22:04 22:04 00:05 WBC (3.8-10.6) k/uL RBC 2.57 L (3.80-5.40) m/uL Hgb 7.5 L (11.4-16.0) gm/dL Hct 23.0 L (34.0-46.0) % Plt Count 31 L (150-450) k/uL Lymphocytes # (1.0-4.8) k/uL APTT (22.0-30.0) sec ABG pCO2 (35-45) mmHg ABG HCO3 (21-25) mmol/L ABG Total CO2 (19-24) mmol/L ABG O2 Saturation (94-97) % Chloride 108 H (98-107) mmol/L Carbon Dioxide 32 H (22-30) mmol/L Glucose 142 H (74-99) mg/dL POC Glucose (mg/dL) 152 H (75-99) mg/dL Calcium 6.6 L (8.4-10.2) mg/dL Ionized Calcium Abbi (4.5-5.3) mg/dL Total Protein (6.3-8.2) g/dL Albumin (3.5-5.0) g/dL 08/05/18 08/05/18 08/05/18 Range/Units 02:03 03:50 03:58 WBC (3.8-10.6) k/uL RBC (3.80-5.40) m/uL Hgb (11.4-16.0) gm/dL Hct (34.0-46.0) % Plt Count (150-450) k/uL Lymphocytes # (1.0-4.8) k/uL APTT (22.0-30.0) sec ABG pCO2 50 H (35-45) mmHg ABG HCO3 32 H (21-25) mmol/L ABG Total CO2 34 H (19-24) mmol/L ABG O2 Saturation 97.6 H (94-97) % Chloride (98-107) mmol/L Carbon Dioxide (22-30) mmol/L Glucose (74-99) mg/dL POC Glucose (mg/dL) 158 H 161 H (75-99) mg/dL Calcium (8.4-10.2) mg/dL Ionized Calcium Abbi (4.5-5.3) mg/dL Total Protein (6.3-8.2) g/dL Albumin (3.5-5.0) g/dL 08/05/18 08/05/18 08/05/18 Range/Units 04:04 04:04 05:10 WBC 3.7 L (3.8-10.6) k/uL RBC 2.49 L (3.80-5.40) m/uL Hgb 7.3 L (11.4-16.0) gm/dL Hct 22.5 L (34.0-46.0) % Plt Count 34 L (150-450) k/uL Lymphocytes # 0.5 L (1.0-4.8) k/uL APTT 76.8 H (22.0-30.0) sec ABG pCO2 (35-45) mmHg ABG HCO3 (21-25) mmol/L ABG Total CO2 (19-24) mmol/L ABG O2 Saturation (94-97) % Chloride 109 H (98-107) mmol/L Carbon Dioxide 31 H (22-30) mmol/L Glucose 139 H (74-99) mg/dL POC Glucose (mg/dL) (75-99) mg/dL Calcium 6.7 L (8.4-10.2) mg/dL Ionized Calcium Abbi 4.4 L (4.5-5.3) mg/dL Total Protein 4.3 L (6.3-8.2) g/dL Albumin 1.6 L (3.5-5.0) g/dL 08/05/18 08/05/18 08/05/18 Range/Units 06:00 08:21 10:45 WBC (3.8-10.6) k/uL RBC (3.80-5.40) m/uL Hgb (11.4-16.0) gm/dL Hct (34.0-46.0) % Plt Count (150-450) k/uL Lymphocytes # (1.0-4.8) k/uL APTT (22.0-30.0) sec ABG pCO2 (35-45) mmHg ABG HCO3 (21-25) mmol/L ABG Total CO2 (19-24) mmol/L ABG O2 Saturation (94-97) % Chloride (98-107) mmol/L Carbon Dioxide (22-30) mmol/L Glucose (74-99) mg/dL POC Glucose (mg/dL) 122 H 125 H 108 H (75-99) mg/dL Calcium (8.4-10.2) mg/dL Ionized Calcium Abbi (4.5-5.3) mg/dL Total Protein (6.3-8.2) g/dL Albumin (3.5-5.0) g/dL 08/05/18 08/05/18 Range/Units 12:14 12:36 WBC (3.8-10.6) k/uL RBC (3.80-5.40) m/uL Hgb (11.4-16.0) gm/dL Hct (34.0-46.0) % Plt Count (150-450) k/uL Lymphocytes # (1.0-4.8) k/uL APTT 63.5 H (22.0-30.0) sec ABG pCO2 (35-45) mmHg ABG HCO3 (21-25) mmol/L ABG Total CO2 (19-24) mmol/L ABG O2 Saturation (94-97) % Chloride (98-107) mmol/L Carbon Dioxide (22-30) mmol/L Glucose (74-99) mg/dL POC Glucose (mg/dL) 101 H (75-99) mg/dL Calcium (8.4-10.2) mg/dL Ionized Calcium Abbi (4.5-5.3) mg/dL Total Protein (6.3-8.2) g/dL Albumin (3.5-5.0) g/dL Microbiology - Last 24 Hours (Table) 07/30/18 09:24 Blood Culture - Final Blood No Growth after 144 hours 07/30/18 08:20 Blood Culture - Final Blood No Growth after 144 hours 08/01/18 23:20 Gram Stain - Final Sputum Sputum Culture - Final Rachelle albicans Assessment and Plan (1) S/P small bowel resection Current Visit: Yes Status: Acute Code(s): Z90.49 - ACQUIRED ABSENCE OF OTHER SPECIFIED PARTS OF DIGESTIVE TRACT SNOMED Code(s): 898248342467253 (2) Colostomy present Current Visit: Yes Status: Acute Code(s): Z93.3 - COLOSTOMY STATUS SNOMED Code(s): 224838675 (3) ARDS (adult respiratory distress syndrome) Current Visit: Yes Status: Acute Code(s): J80 - ACUTE RESPIRATORY DISTRESS SYNDROME SNOMED Code(s): 53148993 (4) Acute respiratory failure with hypoxia Current Visit: Yes Status: Acute Code(s): J96.01 - ACUTE RESPIRATORY FAILURE WITH HYPOXIA SNOMED Code(s): 51211400 (5) Colonic diverticular abscess Current Visit: Yes Status: Acute Code(s): K57.20 - DVTRCLI OF LG INT W PERFORATION AND ABSCESS W/O BLEEDING SNOMED Code(s): 097183887 (6) Sepsis Current Visit: Yes Status: Acute Code(s): A41.9 - SEPSIS, UNSPECIFIED ORGANISM SNOMED Code(s): 26007047
[2018-08-05 15:38] LABS: Glucose,Whole Blood 88 mg/dL (75-99)
[2018-08-05] MEDS: SODIUM CHLORIDE 0.45% 1,000 ML IV SCH (17:40)
[2018-08-05] MEDS: INSULIN REGULAR 100 UNIT in SODIUM CHLORIDE 0.9% 100 ML IV SCH (17:41)
[2018-08-05 17:50] LABS: Glucose,Whole Blood 179 mg/dL (75-99)
[2018-08-05 19:42] LABS: HCT 25.5 % (34.0-46.0); HGB 8.1 gm/dL (11.4-16.0); MCH 28.7 pg (25.0-35.0); MCHC 31.8 g/dL (31.0-37.0); MCV 90.1 fL (80.0-100.0); RBC 2.83 m/uL (3.80-5.40); RDW 15.1 % (11.5-15.5)
[2018-08-05] MEDS ORDERED: LACTATED RINGERS 2,000 ML IV ONE (19:45)
[2018-08-05 20:07] LABS: Platelet Count 58 k/uL (150-450)
[2018-08-05 20:27] LABS: Anisocytosis (M) Present; Band Neutrophils % 21 %; Eosinophils # (M) 0.09 k/uL (0-0.7); Lymphocytes # (M) 1.58 k/uL (1.0-4.8); Metamyelocytes # (M) 0.09 k/uL (0); Metamyelocytes % 2 %; Monocytes # (M) 0.18 k/uL (0-1.0); Neutrophils % (M) 36 %; Nucleated Red Blood Cells 11 /100 WBC (0-0); Polychromasia Present; Total Cells Counted 200; WBC 4.4 k/uL (3.8-10.6)
[2018-08-05 20:28] LABS: Large Platelets Present
[2018-08-05 20:31] LABS: Glucose,Whole Blood 144 mg/dL (75-99)
[2018-08-05 20:33] LABS: ALT 29 U/L (9-52); AST 59 U/L (14-36); Albumin 1.6 g/dL (3.5-5.0); Alkaline Phosphatase 142 U/L (38-126); Anion Gap 4 mmol/L; Blood Urea Nitrogen 19 mg/dL (7-17); Calcium 6.8 mg/dL (8.4-10.2); Carbon Dioxide 28 mmol/L (22-30); Chloride 109 mmol/L (98-107); Glucose 157 mg/dL (74-99); Sodium 141 mmol/L (137-145); Total Bilirubin 0.6 mg/dL (0.2-1.3)
[2018-08-05] MEDS: MVI, ADULT NO.4 WITH VIT K 10 ML, TRACE (CONC-1ML/DOSE) 1 ML, POTASSIUM CHLORIDE 40 MEQ... IV SCH ×5 (20:37)
--- NOTE | 2018-08-05 20:46 | CT ---
EXAMINATION TYPE: CT abdomen pelvis wo con DATE OF EXAM: 08/05/2018 HISTORY: Distended abdomen CT DLP: 1175.3 mGycm. Automated Exposure Control for Dose Reduction was Utilized. TECHNIQUE: CT scan of the abdomen and pelvis is performed without oral or IV contrast. COMPARISON: CT abdomen and pelvis from 6 days ago. FINDINGS: Within the limitations of a non-contrast study, the following observations are made. LUNG BASES: There are new at least small bilateral pleural effusions with associated compressive atel ectasis. LIVER/GB: Gallbladder is dilated with distended margins but no surrounding inflammatory change. PANCREAS: Pancreas is not well identified on current noncontrast study. Some generalized atrophy was present on prior study. SPLEEN: No significant abnormality is seen. ADRENALS: No significant abnormality is seen. KIDNEYS: No renal stones or hydronephrosis is present bilaterally. Storey catheter within decompressed bladder is noted BOWEL: There is new nasogastric tube projecting into stomach with decompression of stomach noted. Meagan luation of bowel is suboptimal secondary to lack of enteric contrast. There is poor distention of duo denal sweep identified. There are surgical sutures with poor definition of bowel loops in the anterio r pelvis. Some residual contrast material is seen in nondistended colon along the periphery. There is mild prominence of contrast and fecal material in the distal left colon on current study. Left lower quadrant colostomy is noted with suspected wall thickening in the ostomy loop. There is small to bor derline moderate amount of abdominal ascites most prominent in the left paracolic and infracolic gutt er. Areas of abnormal wall thickening small bowel loops are felt present particularly the clumped loo ps suspected in the anterior pelvis. Some diverticula in the right and transverse colon are noted. GENITAL ORGANS: Uterus is surgically absent or markedly atrophic. LYMPH NODES: No greater than 1cm abdominal or pelvic lymph nodes are appreciated. OSSEOUS STRUCTURES: No significant abnormality is seen. OTHER: Severe diffuse subcutaneous edema or soft tissue anasarca is now present between more prominen t from prior. There is persistent prominent subcutaneous emphysema in the left lower quadrant anterio r abdominal wall at site where prior pigtail catheter previously coursed. Moderate amount of free flu id in the pelvis is noted axial image 65 felt slightly diminished from prior. Interval resolution of pneumoperitoneum noted. IMPRESSION: 1. New at least small bilateral pleural effusions. New severe diffuse soft tissue anasarca. New small to moderate amount of abdominal and pelvic ascites. 2. Poor visualization of bowel loops due to nonuse of enteric contrast and ascites fluid isodense to bowel wall. Suspect multifocal areas of enterocolitis remaining present. Poor definition of bowel at sutures anterior pelvis noted with wall thickening. 3. Subcutaneous emphysema left lower quadrant anterior abdominal wall remains present fairly stable i n size from prior study. 4. Persistent dilated gallbladder even more prominent from prior study.
[2018-08-05 22:00] LABS: Glucose,Whole Blood 131 mg/dL (75-99)
[2018-08-06 00:34] LABS: Glucose,Whole Blood 131 mg/dL (75-99)
[2018-08-06] MEDS: metroNIDAZOLE-NS PMX 500 MG in SALINE 1 100ML.BAG IVPB SCH ×3 (01:01→16:38)
[2018-08-06] MEDS: AMPICILLIN-SULBACTAM 3 GM in SODIUM CHLORIDE 0.9% 100 ML IVPB SCH ×4 (01:01→18:40)
[2018-08-06] MEDS: HYDROCORTISONE SUCCINATE 100 MG/2 ML VIAL IV SCH ×3 (01:01→16:38)
[2018-08-06] MEDS: METOCLOPRAMIDE 5 MG/ML 2 ML VIAL IVP SCH ×4 (01:01→18:34)
--- NOTE | 2018-08-06 01:16 | PN ---
PROGRESS NOTE DATE OF SERVICE: 08/05/2018. REASON FOR FOLLOWUP: Abdominal abscess from ruptured diverticulitis. INTERVAL HISTORY: The patient is doing well this morning. However, she did have change in her clinical condition after change of her wound VAC by the RN mentioned low-grade fever of 99, tachycardia and heart to noted to have some acute changes on the wound edges. The patient is currently sedated on the vet, and unable to provide any history. PHYSICAL EXAMINATION: Blood pressure 111/52 with a pulse of 120, temperature 98.7, T-max is 99. She is 94% on 95% FiO2. General description is a middle-aged female lying in bed, intubated on the vent. HEENT examination is slight pallor. The patient is orally intubated. LUNGS: Unlabored breathing. Clear to auscultation anteriorly. Heart S1, S2. Regular rate and rhythm. ABDOMEN: Soft. Currently the midline incision is covered with a wound VAC. There was no evidence of any obvious redness or blackness that I could appreciate on clinical examination. EXTREMITIES: Trace edema of feet. LABS: Hemoglobin 8.1, white count 4.4 with a BUN of 19, creatinine 0.55. Sputum has been Rachelle. Blood culture has been negative. White count is normal. DIAGNOSTIC IMPRESSION AND PLAN: Patient with abdominal abscess from ruptured diverticulitis in this patient with extensive abdominal infection requiring extensive surgery. Cultures have been positive for E coli, gram-negative and patient currently covered with Unasyn and Flagyl. The incision will be evaluated by surgery. This was discussed with the nursing staff. We will monitor clinical course closely. Overall prognosis remains to be guarded. MMODL / IJN: [id number] /
[2018-08-06] MEDS: PROPOFOL 1,000 MG in EMPTY BAG 1 BAG IV SCH ×5 (01:41→23:41)
[2018-08-06 02:45] LABS: Glucose,Whole Blood 148 mg/dL (75-99)
[2018-08-06] MEDS: NOREPINEPHRINE 16 MG in SODIUM CHLORIDE 0.9% 250 ML IV SCH (03:00)
[2018-08-06 04:07] LABS: Glucose,Whole Blood 124 mg/dL (75-99)
[2018-08-06 04:16] LABS: ABG HCO3 31 mmol/L (21-25); ABG Oxygen Saturation 95.3 % (94-97); ABG PCO2 56 mmHg (35-45); ABG PH 7.35 (7.35-7.45); ABG PO2 80 mmHg (83-108); ABG TCO2 32 mmol/L (19-24)
[2018-08-06 05:23] LABS: HCT 26.1 % (34.0-46.0); HGB 8.4 gm/dL (11.4-16.0); Hypochromasia Slight; MCH 29.4 pg (25.0-35.0); MCHC 32.2 g/dL (31.0-37.0); Mean Platelet Volume 11.1; RBC 2.87 m/uL (3.80-5.40); RDW 15.9 % (11.5-15.5)
[2018-08-06 05:46] LABS: Platelet Count 77 k/uL (150-450)
[2018-08-06 05:57] LABS: ALT 29 U/L (9-52); AST 54 U/L (14-36); Albumin 1.6 g/dL (3.5-5.0); Alkaline Phosphatase 111 U/L (38-126); Anion Gap -2 mmol/L; Blood Urea Nitrogen 18 mg/dL (7-17); Calcium 7.1 mg/dL (8.4-10.2); Carbon Dioxide 34 mmol/L (22-30); Chloride 110 mmol/L (98-107); Glucose 125 mg/dL (74-99); Magnesium 2.2 mg/dL (1.6-2.3); Phosphorus 3.8 mg/dL (2.5-4.5); Sodium 142 mmol/L (137-145); Total Bilirubin 0.4 mg/dL (0.2-1.3); Total Protein 4.2 g/dL (6.3-8.2)
[2018-08-06 06:00] LABS: Potassium 4.5 mmol/L (3.5-5.1)
[2018-08-06 06:02] LABS: Glucose,Whole Blood 124 mg/dL (75-99)
[2018-08-06 06:07] LABS: Band Neutrophils % 49 %; Eosinophils # (M) 0.14 k/uL (0-0.7); Metamyelocytes # (M) 0.36 k/uL (0); Metamyelocytes % 5 %; Monocytes # (M) 0.14 k/uL (0-1.0); Myelocytes # (M) 0.14 k/uL (0); Myelocytes % 2 %; Neutrophils % (M) 36 %; Nucleated Red Blood Cells 2 /100 WBC (0-0); Total Cells Counted 200
[2018-08-06 06:08] LABS: WBC 7.1 k/uL (3.8-10.6)
[2018-08-06] MEDS: IPRATROPIUM-ALBUTEROL 3 ML NEB INHALATION SCH ×4 (07:23→19:25)
--- NOTE | 2018-08-06 07:28 | XR ---
EXAMINATION TYPE: XR chest 1V portable DATE OF EXAM: 08/06/2018 COMPARISON: 08/05/2018 HISTORY: SOB, Follow Up FINDINGS: Indwelling tubes and catheters are unchanged. Diffuse bilateral airspace disease is unchanged. Stable appearance of the cardio-mediastinal structures at this time. IMPRESSION: 1. Stable portable chest. Clinical correlation and follow up until resolution is recommended.
[2018-08-06] MEDS: CHLORHEXIDINE GLUCONATE 15 ML CUP MUCOUS MEM SCH ×2 (09:12→21:54)
[2018-08-06] MEDS: PANTOPRAZOLE 40 MG/10 ML VIAL IVP SCH (09:12)
[2018-08-06] MEDS: HEPARIN SOD,PORK IN 0.45% NACL 25,000 UNIT in 0.45% NACL 1 250ML.BAG IV SCH (09:22)
--- NOTE | 2018-08-06 09:29 | PN ---
PROGRESS NOTE DATE OF SERVICE: 09/03/2018 A 58-year-old female admitted back on July 26 for abdominal pain. She was found on radiographic studies to have a bowel obstruction and is currently postop day #7 status post exploratory laparotomy, sigmoid colectomy and colostomy and appendectomy. The patient was thought to have acute abdominal sepsis with diverticular abscess and actually was extubated initially on the . Unfortunately, she developed hypoxemic respiratory failure secondary to septic ARDS and was re-intubated on August 01. She remains on the ventilator. She has made some headway with her ARDS. She was at 1 point up at 100% and 13 of PEEP. She was weaned back down to 50% and 5 of PEEP and more recently has taken a few steps backwards. I did have a long talk with the yesterday. She is still a FULL CODE. She is only 58 years of age. She is currently on the volume assist-control mode rate of 22, tidal volume 350, FiO2 of 65% to be dropped to 60%, PEEP of 8. Blood gases show a pO2 of 80, a pCO2 of 56 and a pH 7.35. She is on a 0.45 IV of 50 mL an hour, Levophed of 14 mcg/minute, Diprivan of 45 mcg/kg per per minute, insulin at 1.5 units an hour, heparin via weight based protocol and TPN at 45 mL an hour. Current vital signs are reviewed. Her temperature is 98.7, heart rate 89, respiratory rate 22, blood pressure 111/62, mean 78 and saturations are 95%. Her CVP is running about 12. Appears in no acute distress, and she is currently sedated. HEENT examination is grossly unremarkable. She has got an orally placed endotracheal tube and NG tube. Neck is supple. Full range of motion. No adenopathy or thyromegaly. Neck veins are flat. Cardiovascular examination reveals regular rhythm and rate. S1, S2 normal. No S3, S4, or murmur. Heart rate about mid 80s. Lungs reveal coarse rhonchi. Breath sounds are diminished. Breath sounds are equal bilaterally. A few crackles are appreciated. No wheezes. Abdomen is soft. No bowel sounds. Extremities are intact. Slight edema. Skin without rash. Neurologic examination cannot be evaluated properly. Chest x-ray continues to show bilateral infiltrates. She has got gram stains showing E coli, alpha strep and beta strep. This is from the abdominal wound. In addition, she has additional abdominal wound showing various anaerobic gram-negative bacilli. LABS: Reviewed. White count 7.1, hemoglobin 8.4, hematocrit 26.1, platelet count 77,000. PTT is 122.6. Sodium 142, potassium 4.5, chloride 110, CO2 of 34. BUN and creatinine were 18 and 0.58. Medications are reviewed. She remains on Unasyn and Flagyl. Other medications are reviewed and are appropriate. ASSESSMENT: 1. Postoperative day #7 status post exploratory laparotomy, sigmoid colectomy with colostomy and appendectomy secondary to acute abdominal sepsis and diverticular abscess. 2. Routine postoperative ventilator management with initial extubation on July 31 and re-intubation on the for acute hypoxemic respiratory failure. 3. Acute respiratory distress syndrome (ARDS), secondary to abdominal sepsis. 4. Hyperchloremic non-anion gap metabolic acidosis, much improved. 5. History of anion gap metabolic acidosis, secondary to lactic acidemia, resolved. 6. History of chronic abdominal pain. 7. Leukopenia. 8. Sepsis related thrombocytopenia. 9. Gastroesophageal reflux disease. 10.Relative adrenal insufficiency. 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 PLAN: The patient's overall situation has declined a bit. She started having issues yesterday which became unstable. She did desaturate. We had to put her on 100% and bump the PEEP up. We will wean her back down slowly. Chest x-ray continues to show bilateral infiltrates. She is on good antibiotics in the form of Unasyn and Flagyl. ID is following along. I did have a long discussion with the yesterday. I will update him again today. Surgery is following along as well. Overall prognosis remains very poor. She remains on IV heparin for the left radial artery occlusion. The thumb is dusky. Additional recommendations and suggestions are forthcoming. Prognosis is very poor. Critical care time is 34 minutes. MMODL / IJN: [id number] /
[2018-08-06 09:34] LABS: Glucose,Whole Blood 116 mg/dL (75-99)
[2018-08-06 12:02] LABS: Glucose,Whole Blood 119 mg/dL (75-99)
[2018-08-06] MEDS: SODIUM CHLORIDE 0.45% 1,000 ML IV SCH (12:43)
--- NOTE | 2018-08-06 14:06 | P.PN ---
Subjective Progress Note Date: 08/06/18 The patient is a 58-year-old female with no significant PMH who presented to the ED for nausea, vomiting, and dehydration with chronic abdominal pain of 6 months duration. In the ED the patient had computed tomography scan of the abdomen which showed a diverticular abscess and partial small bowel obstruction. She was started on IV fluids, and IV antibiotics with a general surgery consult and was admitted for further management. The patient opted for conservative management initially and a percutaneous drain was placed by IR on . The patient also had an elevated PTT and INR for which hematology was consulted and patient was started on Vit K after which the levels normalized. The patient was evaluated by ID and switched from Meropenem to Zosyn. On 07/30, the patient had worsening of her abdominal pain and became tachycardic, leukopenic, and had an elevated lactate. A repeat CT scan w/ contrast was obtained and showed pneumoperitoneum w/ subcutaneous emphysema. Surgery was contacted immediately and the patient was transferred to the MICU. The patient was subsequently taken for an ex-lap for perforated viscus. During the procedure , the patient was noted to have fecal peritonitis and underwent a sigmoid colectomy w/ end colostomy. The patient was transferred back to MICU post- operatively and was started on IV pressors. The patient was extubated on . She continued to require Levophed. ID recommended the patient to be switched to Unasyn and Flagyl. Furthermore, a random cortisol level was drawn and was 22, for which patient was started on hydrocortisone for suspected adrenal insufficiency. On 08/02/18, the patient was in respiratory distress and was re-intubated. Furthermore, she developed L thumb discoloration with hx of A- line placement on that wrist. Vascular surgery was consulted and recommended that in light of the severe thrombocytopenia and interval improvement of the capillary refill of the thumb area that the patient wouldn't undergo surgical intervention. The patient was seen and examined at the bedside on 08/06/2018. Patient's oxygen requirements had increased overnight and she is presently on 60% FiO2 with PEEP of 8. She continues to be on the Levophed infusion, with propofol, heparin, and insulin drips. Objective - Vital Signs Vital signs: Vital Signs Temp 98.7 F 08/06/18 08:00 Pulse 94 08/06/18 13:00 Resp 27 H 08/06/18 13:00 BP 111/62 08/06/18 11:00 Pulse Ox 94 L 08/06/18 13:00 Intake & Output 08/05/18 08/06/18 08/06/18 18:59 06:59 18:59 Intake Total 2669.7413 3463.608 671.8 Output Total 1565 1109 1260 Balance 1104.7413 2354.608 -588.2 Weight 84.6 kg Intake: IV 1182 2986 662 0.45 400 50 0.9 NACL 110 120 70 Ampicillin-Sulbactam 3 gm 100 100 100 In Sodium Chloride 0.9% 100 ml @ 200 mls/hr IVPB Q6HR [facility] Rx#:[id number] Lactated Ringers 2,000 ml 2000 @ 999 mls/hr IV .Q2H1M [facility] Rx#:[id number] Potassium Chloride 10 meq 100 In Water For Injection 1 100ml.bag @ 100 mls/hr IVPB Q1H [facility] Rx#: [id number] Pressure bag 72 66 42 Sodium Chloride 0.45% 1, 200 550 350 000 ml @ 50 mls/hr IV . Q20H [facility] Rx#:[id number] metroNIDAZOLE-NS PMX 500 200 100 100 mg In Saline 1 100ml.bag @ 100 mls/hr IVPB Q8HR [facility] Rx#:[id number] Intake, IV Titration 1487.7413 471.608 9.8 Amount Heparin Sod,Pork in 0.45% 112.612 128.064 9.8 NaCl 25,000 unit In 0.45 % NaCl 1 250ml.bag @ 12 UNITS/KG/HR 10 mls/hr IV .Q24H [facility] Rx#:[id number] Insulin Regular 100 unit 34.524 14.087 In Sodium Chloride 0.9% 100 ml @ Per Protocol IV .Q0M [facility] Rx#:[id number] Mvi, Adult No.4 with Vit 90 K 10 ml Trace (Conc-1Ml/ Dose) 1 ml Potassium Chloride 40 meq Potassium Phosphate 10 mmol In Amino Acid 5%-D15w+Lytes* E* 1,000 ml @ 45 mls/hr IV .Q23H [facility] Rx#: [id number] Mvi, Adult No.4 with Vit 1034.3333 K 10 ml Trace (Conc-1Ml/ Dose) 1 ml Potassium Chloride 40 meq Potassium Phosphate 10 mmol In Amino Acid 5%-D15w+Lytes* E* 1,000 ml @ 45 mls/hr IV .Q23H [facility] Rx#: [id number] Norepinephrine 16 mg In 55.563 66.803 Sodium Chloride 0.9% 250 ml @ Titrate IV .Q0M [facility] Rx#:[id number] Propofol 1,000 mg In 160.709 262.654 Empty Bag 1 bag @ Titrate IV .Q0M [facility] Rx#: [id number] Lipid 6 Pressure bag 6 Output: Drainage 1000 Medial Abdomen 1000 Urine 565 1009 460 Stool 100 800 Other: Voiding Method Indwelling Catheter Indwelling Catheter Indwelling Catheter ABP, PAP, CO, CI - Last Documented Arterial Blood Pressure 127/60 - Exam General: Sedated F, on ventilator HEENT: NC/AT, pinpoint pupils kobe Cardiovascular: S1/S2 wnl, no murmurs, rubs, or gallops Lungs: Scattered coarse breath sounds Abdominal: Colostomy bag in place with brown stool, wound-vac in place, bowel sounds hypoactive Skin: Warm, dry Extremities: Trace lower extremity edema, left thumb discolored and cold Neuro: Unresponsive to noxious stimuli - Labs CBC & Chem 7: 08/06/18 05:00 08/06/18 05:00 Labs: Abnormal Lab Results - Last 24 Hours (Table) 08/05/18 08/05/18 08/05/18 Range/Units 17:26 19:20 19:20 RBC 2.83 L (3.80-5.40) m/uL Hgb 8.1 L (11.4-16.0) gm/dL Hct 25.5 L (34.0-46.0) % RDW (11.5-15.5) % Plt Count 58 L D (150-450) k/uL Lymphocytes # (Manual) (1.0-4.8) k/uL Metamyelocytes # (Man) 0.09 H (0) k/uL Myelocytes # (Manual) (0) k/uL Nucleated RBCs 11 H (0-0) /100 WBC APTT (22.0-30.0) sec ABG pCO2 (35-45) mmHg ABG pO2 (83-108) mmHg ABG HCO3 (21-25) mmol/L ABG Total CO2 (19-24) mmol/L ABG Lactic Acid (0.5-1.6) mmol/L Chloride 109 H (98-107) mmol/L Carbon Dioxide (22-30) mmol/L BUN 19 H (7-17) mg/dL Glucose 157 H (74-99) mg/dL POC Glucose (mg/dL) 179 H (75-99) mg/dL Calcium 6.8 L (8.4-10.2) mg/dL AST 59 H (14-36) U/L Alkaline Phosphatase 142 H (38-126) U/L Total Protein 4.0 L (6.3-8.2) g/dL Albumin 1.6 L (3.5-5.0) g/dL 08/05/18 08/05/18 08/05/18 Range/Units 19:20 20:27 21:57 RBC (3.80-5.40) m/uL Hgb (11.4-16.0) gm/dL Hct (34.0-46.0) % RDW (11.5-15.5) % Plt Count (150-450) k/uL Lymphocytes # (Manual) (1.0-4.8) k/uL Metamyelocytes # (Man) (0) k/uL Myelocytes # (Manual) (0) k/uL Nucleated RBCs (0-0) /100 WBC APTT (22.0-30.0) sec ABG pCO2 (35-45) mmHg ABG pO2 (83-108) mmHg ABG HCO3 (21-25) mmol/L ABG Total CO2 (19-24) mmol/L ABG Lactic Acid 3.1 H* (0.5-1.6) mmol/L Chloride (98-107) mmol/L Carbon Dioxide (22-30) mmol/L BUN (7-17) mg/dL Glucose (74-99) mg/dL POC Glucose (mg/dL) 144 H 131 H (75-99) mg/dL Calcium (8.4-10.2) mg/dL AST (14-36) U/L Alkaline Phosphatase (38-126) U/L Total Protein (6.3-8.2) g/dL Albumin (3.5-5.0) g/dL 08/06/18 08/06/18 08/06/18 Range/Units 00:08 02:08 04:05 RBC (3.80-5.40) m/uL Hgb (11.4-16.0) gm/dL Hct (34.0-46.0) % RDW (11.5-15.5) % Plt Count (150-450) k/uL Lymphocytes # (Manual) (1.0-4.8) k/uL Metamyelocytes # (Man) (0) k/uL Myelocytes # (Manual) (0) k/uL Nucleated RBCs (0-0) /100 WBC APTT (22.0-30.0) sec ABG pCO2 (35-45) mmHg ABG pO2 (83-108) mmHg ABG HCO3 (21-25) mmol/L ABG Total CO2 (19-24) mmol/L ABG Lactic Acid (0.5-1.6) mmol/L Chloride (98-107) mmol/L Carbon Dioxide (22-30) mmol/L BUN (7-17) mg/dL Glucose (74-99) mg/dL POC Glucose (mg/dL) 131 H 148 H 124 H (75-99) mg/dL Calcium (8.4-10.2) mg/dL AST (14-36) U/L Alkaline Phosphatase (38-126) U/L Total Protein (6.3-8.2) g/dL Albumin (3.5-5.0) g/dL 08/06/18 08/06/18 08/06/18 Range/Units 04:13 05:00 05:00 RBC 2.87 L (3.80-5.40) m/uL Hgb 8.4 L (11.4-16.0) gm/dL Hct 26.1 L (34.0-46.0) % RDW 15.9 H (11.5-15.5) % Plt Count 77 L (150-450) k/uL Lymphocytes # (Manual) 0.50 L (1.0-4.8) k/uL Metamyelocytes # (Man) 0.36 H (0) k/uL Myelocytes # (Manual) 0.14 H (0) k/uL Nucleated RBCs 2 H (0-0) /100 WBC APTT (22.0-30.0) sec ABG pCO2 56 H (35-45) mmHg ABG pO2 80 L (83-108) mmHg ABG HCO3 31 H (21-25) mmol/L ABG Total CO2 32 H (19-24) mmol/L ABG Lactic Acid (0.5-1.6) mmol/L Chloride 110 H (98-107) mmol/L Carbon Dioxide 34 H (22-30) mmol/L BUN 18 H (7-17) mg/dL Glucose 125 H (74-99) mg/dL POC Glucose (mg/dL) (75-99) mg/dL Calcium 7.1 L (8.4-10.2) mg/dL AST 54 H (14-36) U/L Alkaline Phosphatase (38-126) U/L Total Protein 4.2 L (6.3-8.2) g/dL Albumin 1.6 L (3.5-5.0) g/dL 08/06/18 08/06/18 08/06/18 Range/Units 05:00 05:59 09:31 RBC (3.80-5.40) m/uL Hgb (11.4-16.0) gm/dL Hct (34.0-46.0) % RDW (11.5-15.5) % Plt Count (150-450) k/uL Lymphocytes # (Manual) (1.0-4.8) k/uL Metamyelocytes # (Man) (0) k/uL Myelocytes # (Manual) (0) k/uL Nucleated RBCs (0-0) /100 WBC APTT 122.6 H* (22.0-30.0) sec ABG pCO2 (35-45) mmHg ABG pO2 (83-108) mmHg ABG HCO3 (21-25) mmol/L ABG Total CO2 (19-24) mmol/L ABG Lactic Acid (0.5-1.6) mmol/L Chloride (98-107) mmol/L Carbon Dioxide (22-30) mmol/L BUN (7-17) mg/dL Glucose (74-99) mg/dL POC Glucose (mg/dL) 124 H 116 H (75-99) mg/dL Calcium (8.4-10.2) mg/dL AST (14-36) U/L Alkaline Phosphatase (38-126) U/L Total Protein (6.3-8.2) g/dL Albumin (3.5-5.0) g/dL 08/06/18 Range/Units 12:01 RBC (3.80-5.40) m/uL Hgb (11.4-16.0) gm/dL Hct (34.0-46.0) % RDW (11.5-15.5) % Plt Count (150-450) k/uL Lymphocytes # (Manual) (1.0-4.8) k/uL Metamyelocytes # (Man) (0) k/uL Myelocytes # (Manual) (0) k/uL Nucleated RBCs (0-0) /100 WBC APTT (22.0-30.0) sec ABG pCO2 (35-45) mmHg ABG pO2 (83-108) mmHg ABG HCO3 (21-25) mmol/L ABG Total CO2 (19-24) mmol/L ABG Lactic Acid (0.5-1.6) mmol/L Chloride (98-107) mmol/L Carbon Dioxide (22-30) mmol/L BUN (7-17) mg/dL Glucose (74-99) mg/dL POC Glucose (mg/dL) 119 H (75-99) mg/dL Calcium (8.4-10.2) mg/dL AST (14-36) U/L Alkaline Phosphatase (38-126) U/L Total Protein (6.3-8.2) g/dL Albumin (3.5-5.0) g/dL Microbiology - Last 24 Hours (Table) 07/30/18 09:24 Blood Culture - Final Blood No Growth after 144 hours 07/30/18 08:20 Blood Culture - Final Blood No Growth after 144 hours Assessment and Plan Plan: Septic shock secondary to diverticular abdscess rupture, s/p ex-lap w/ sigmoid colostomy POD # 7 -Patient continues to require Levophed, requirements increased to 11 g -IV Abxs as per ID, currently on Flagyl and Unasyn -IV fluids at 50 mL per hour -As per the critical care service Hypoxic respiratory failure requiring mechanical ventilation -Ventilator bundle Acute respiratory distress syndrome -Continue with the ventilator bundle -PEEP increased to 8 Hypokalemia, Hypocalcemia -Replaced. Will monitor Normocytic anemia with thrombocytopenia, improved -Hematology aware. -Likely due to septic shock -HIT screen negative L thumb discoloration, impaired capillary refill -As per vascular surgery -Patient is on the Heparin infusion Diabetes Mellitus -Insulin drip DVT//GI prophylaxis -Heparin infusion -Protonix Prognosis: Very poor
[2018-08-06 17:39] LABS: Glucose,Whole Blood 111 mg/dL (75-99)
[2018-08-06 20:37] LABS: Glucose,Whole Blood 125 mg/dL (75-99)
[2018-08-06] MEDS: MVI, ADULT NO.4 WITH VIT K 10 ML, TRACE (CONC-1ML/DOSE) 1 ML, POTASSIUM CHLORIDE 40 MEQ... IV SCH ×5 (21:54)
[2018-08-06 22:06] LABS: Glucose,Whole Blood 121 mg/dL (75-99)
[2018-08-06] MEDS: IPRATROPIUM-ALBUTEROL 3 ML NEB INHALATION PRN (23:19)
--- NOTE | 2018-08-06 23:29 | PN ---
PROGRESS NOTE DATE OF SERVICE: 08/06/2018. REASON FOR FOLLOWUP: Abdominal sepsis. INTERVAL HISTORY: The patient is currently afebrile. The patient did have borderline blood pressure, however, overall requirements of the Levaquin has decreased since morning per the RN. currently 50%. The patient remains to be intubated, on the vent. PHYSICAL EXAMINATION: Blood pressure is 111/52 with a pulse of 96, temperature 98.2, he is 93% on 50% FiO2. GENERAL DESCRIPTION: A middle aged female intubated on the vent. HEENT: Shows pallor. The patient is orally intubated. LUNGS: Unlabored breathing. Decreased breath sounds. No wheeze. HEART: S1, S2. Regular rate and rhythm. ABDOMEN: Soft. Midline incision currently covered with wound VAC. No surrounding swelling, redness or any necrotic changes noticed obviously. EXTREMITIES: 2+ edema of feet. LABS: Hemoglobin 8.4, white count 7.1. BUN of 18, creatinine 0.58. Blood culture has been negative. Sputum with Rachelle albicans. DIAGNOSTIC IMPRESSION AND PLAN: Patient with abdominal sepsis in this patient who did have a perforated sigmoid diverticulitis. The patient did require extensive surgery. The abdominal culture has been positive for E coli Enterococcus and multiple anaerobic gram-negative bacilli. The patient is currently covered with Unasyn 3 g every 6 hours and Flagyl. being maintained on . Overall prognosis remains to be poor. Continue with supportive care. MMODL / IJN: [id number] /
[2018-08-07] MEDS: METOCLOPRAMIDE 5 MG/ML 2 ML VIAL IVP SCH ×5 (00:27→23:29)
[2018-08-07] MEDS: HYDROCORTISONE SUCCINATE 100 MG/2 ML VIAL IV SCH ×4 (00:28→23:29)
[2018-08-07 00:29] LABS: Glucose,Whole Blood 130 mg/dL (75-99)
[2018-08-07] MEDS: AMPICILLIN-SULBACTAM 3 GM in SODIUM CHLORIDE 0.9% 100 ML IVPB SCH ×5 (00:30→23:29)
[2018-08-07] MEDS: metroNIDAZOLE-NS PMX 500 MG in SALINE 1 100ML.BAG IVPB SCH ×4 (00:30→23:29)
[2018-08-07 02:11] LABS: Glucose,Whole Blood 129 mg/dL (75-99)
[2018-08-07] MEDS: IPRATROPIUM-ALBUTEROL 3 ML NEB INHALATION PRN (03:08)
[2018-08-07] MEDS: PROPOFOL 1,000 MG in EMPTY BAG 1 BAG IV SCH ×5 (03:26→20:34)
[2018-08-07 04:06] LABS: Glucose,Whole Blood 131 mg/dL (75-99)
[2018-08-07] MEDS ORDERED: HYDROmorphone 1 MG/ML 1 ML SYRINGE ONE (04:50)
[2018-08-07] MEDS ORDERED: HYDROmorphone 1 MG/ML 1 ML SYRINGE IVP STA (05:02)
[2018-08-07 05:09] LABS: HCT 24.9 % (34.0-46.0); HGB 7.9 gm/dL (11.4-16.0); Hypochromasia Slight; MCH 29.1 pg (25.0-35.0); MCHC 31.7 g/dL (31.0-37.0); MCV 91.8 fL (80.0-100.0); Mean Platelet Volume 10.5; RBC 2.71 m/uL (3.80-5.40); RDW 15.8 % (11.5-15.5); WBC 9.9 k/uL (3.8-10.6)
[2018-08-07 05:10] LABS: Platelet Count 75 k/uL (150-450)
[2018-08-07] MEDS: HYDROmorphone 0.5 MG/0.5 ML SYRINGE IVP PRN ×6 (05:12→22:22)
[2018-08-07] MEDS ORDERED: HYDROmorphone 1 MG/ML 1 ML SYRINGE IVP PRN (05:15)
[2018-08-07 05:29] LABS: ABG Base Excess 3.6 mmol/L; ABG HCO3 29 mmol/L (21-25); ABG Oxygen Saturation 94.9 % (94-97); ABG PCO2 48 mmHg (35-45); ABG PH 7.39 (7.35-7.45); ABG PO2 74 mmHg (83-108); ABG TCO2 30 mmol/L (19-24)
[2018-08-07 05:34] LABS: Band Neutrophils % 20 %; Lymphocytes # (M) 1.19 k/uL (1.0-4.8); Myelocytes % 2 %; Neutrophils % (M) 65 %; Nucleated Red Blood Cells 0 /100 WBC (0-0); Total Cells Counted 200
[2018-08-07 05:35] LABS: Basophilic Stippling Present; Polychromasia Present
[2018-08-07 06:00] LABS: ALT 31 U/L (9-52); AST 51 U/L (14-36); Albumin 1.4 g/dL (3.5-5.0); Alkaline Phosphatase 143 U/L (38-126); Anion Gap 2 mmol/L; Blood Urea Nitrogen 19 mg/dL (7-17); Calcium 6.9 mg/dL (8.4-10.2); Carbon Dioxide 27 mmol/L (22-30); Chloride 112 mmol/L (98-107); Glucose 139 mg/dL (74-99); Magnesium 2.2 mg/dL (1.6-2.3); Phosphorus 3.9 mg/dL (2.5-4.5); Potassium 4.3 mmol/L (3.5-5.1); Sodium 141 mmol/L (137-145); Total Bilirubin 0.4 mg/dL (0.2-1.3); Total Protein 3.3 g/dL (6.3-8.2)
--- NOTE | 2018-08-07 07:16 | XR ---
EXAMINATION TYPE: XR chest 1V portable DATE OF EXAM: 08/07/2018 CLINICAL HISTORY: Difficulty breathing progress study. TECHNIQUE: Single AP portable semiupright view of the chest is obtained. COMPARISON: Chest x-ray from one day earlier and older studies. FINDINGS: An endotracheal tube, orogastric tube, and left-sided subclavian central venous catheter a re all stable in appearance. There is redemonstration of bilateral central opacities with air broncho grams and silhouetting of portions of right heart border and medial aspect bilateral hemidiaphragms. Upper lungs remain clear without pneumothorax. Osseous structures are intact. IMPRESSION: Overall stable findings, bilateral central perihilar moderate alveolar and interstitial edema and/or infiltrates are redemonstrated.
--- NOTE | 2018-08-07 07:28 | P.PN ---
Subjective Progress Note Date: 08/06/18 CHIEF COMPLAINT: Perforated diverticulitis. HISTORY OF PRESENT ILLNESS: The patient is a 58-year-old female status post colectomy with colostomy creation, small bowel resection, appendectomy, POD 7. Patient on full ventilatory support. Overnight, she had acute drop in her pressures requiring increase on pressors. CT of the abdomen and pelvis obtained at that time. Nursing also reports change in color for subcu with increased necrosis and drainage. Otherwise no fevers. is at bedside. This morning, patient has stabilized with decreased use of pressors. She is still full ventilatory support. PHYSICAL EXAM: VITAL SIGNS: Reviewed GENERAL: Well-developed HEENT: No sclera icterus. Extraocular movements grossly intact. Head is atraumatic, normocephalic. NECK: Supple without lymphadenopathy. CHEST: Full ventilatory support with mechanical ventilation. CARDIOVASCULAR: Palpable 2+ radial pulses. Tachycardic ABDOMEN: Soft. Abdominal wound vac in place with serous drainage. Imaging reviewed consistent with necrosis of subcutaneous tissue compared to initial presentation in the ICU. MUSCULOSKELETAL: No clubbing. Has edema lower extremities. NEUROLOGIC: Deferred due to sedation PSYCH: Deferred due to sedation SKIN: Poorly perfused. Moderate weeping of the skin LABS: Reviewed STUDIES: CT of abdomen and pelvis using detail demonstrating functioning ostomy. Persistent subcutaneous air of the left lower quadrant. Moderate anasarca. ASSESSMENT: 1. s/p colectomy 2. Sepsis PLAN: 1. Wound may benefit from debridement. 2. Any further surgical intervention deferred to index operating surgeon. 3. Continue with IV antibiotics for ventilatory support 4. Overall patient in guarded condition. Critical care time 23 minutes Objective - Vital Signs Vital signs: Vital Signs Temp 98.1 F 08/07/18 04:00 Pulse 116 H 08/07/18 07:00 Resp 20 08/07/18 07:00 BP 93/50 08/07/18 07:00 Pulse Ox 93 L 08/07/18 07:00 Intake & Output 08/06/18 08/07/18 08/07/18 18:59 06:59 18:59 Intake Total 6689.303 1632.539 Output Total 2090 1417 Balance -758.708 -165.461 Weight 87.1 kg Intake: IV 992 948 0.9 NACL 120 120 Ampicillin-Sulbactam 3 gm 100 100 In Sodium Chloride 0.9% 100 ml @ 200 mls/hr IVPB Q6HR [facility] Rx#:[id number] Pressure bag 72 78 Sodium Chloride 0.45% 1, 600 650 000 ml @ 50 mls/hr IV . Q20H [facility] Rx#:[id number] metroNIDAZOLE-NS PMX 500 100 mg In Saline 1 100ml.bag @ 100 mls/hr IVPB Q8HR [facility] Rx#:[id number] Intake, IV Titration 339.292 223.539 Amount Heparin Sod,Pork in 0.45% 9.8 NaCl 25,000 unit In 0.45 % NaCl 1 250ml.bag @ 12 UNITS/KG/HR 10 mls/hr IV .Q24H [facility] Rx#:[id number] Norepinephrine 16 mg In 136.870 7.941 Sodium Chloride 0.9% 250 ml @ Titrate IV .Q0M [facility] Rx#:[id number] Propofol 1,000 mg In 192.622 215.598 Empty Bag 1 bag @ Titrate IV .Q0M [facility] Rx#: [id number] Oral 80 Output: Drainage 500 500 Medial Abdomen 500 500 Urine 790 617 Stool 800 300 Other: Voiding Method Indwelling Catheter Indwelling Catheter # Bowel Movements 1 ABP, PAP, CO, CI - Last Documented Arterial Blood Pressure 118/49 - Labs CBC & Chem 7: 08/07/18 04:20 08/07/18 04:20 Labs: Abnormal Lab Results - Last 24 Hours (Table) 08/06/18 08/06/18 08/06/18 Range/Units 09:31 12:01 13:05 RBC (3.80-5.40) m/uL Hgb (11.4-16.0) gm/dL Hct (34.0-46.0) % RDW (11.5-15.5) % Plt Count (150-450) k/uL Neutrophils # (Manual) (1.3-7.7) k/uL Myelocytes # (Manual) (0) k/uL APTT 57.4 H (22.0-30.0) sec ABG pCO2 (35-45) mmHg ABG pO2 (83-108) mmHg ABG HCO3 (21-25) mmol/L ABG Total CO2 (19-24) mmol/L Chloride (98-107) mmol/L BUN (7-17) mg/dL Creatinine (0.52-1.04) mg/dL Glucose (74-99) mg/dL POC Glucose (mg/dL) 116 H 119 H (75-99) mg/dL Calcium (8.4-10.2) mg/dL AST (14-36) U/L Alkaline Phosphatase (38-126) U/L Total Protein (6.3-8.2) g/dL Albumin (3.5-5.0) g/dL 08/06/18 08/06/18 08/06/18 Range/Units 17:23 20:34 22:02 RBC (3.80-5.40) m/uL Hgb (11.4-16.0) gm/dL Hct (34.0-46.0) % RDW (11.5-15.5) % Plt Count (150-450) k/uL Neutrophils # (Manual) (1.3-7.7) k/uL Myelocytes # (Manual) (0) k/uL APTT (22.0-30.0) sec ABG pCO2 (35-45) mmHg ABG pO2 (83-108) mmHg ABG HCO3 (21-25) mmol/L ABG Total CO2 (19-24) mmol/L Chloride (98-107) mmol/L BUN (7-17) mg/dL Creatinine (0.52-1.04) mg/dL Glucose (74-99) mg/dL POC Glucose (mg/dL) 111 H 125 H 121 H (75-99) mg/dL Calcium (8.4-10.2) mg/dL AST (14-36) U/L Alkaline Phosphatase (38-126) U/L Total Protein (6.3-8.2) g/dL Albumin (3.5-5.0) g/dL 08/07/18 08/07/18 08/07/18 Range/Units 00:03 02:08 04:03 RBC (3.80-5.40) m/uL Hgb (11.4-16.0) gm/dL Hct (34.0-46.0) % RDW (11.5-15.5) % Plt Count (150-450) k/uL Neutrophils # (Manual) (1.3-7.7) k/uL Myelocytes # (Manual) (0) k/uL APTT (22.0-30.0) sec ABG pCO2 (35-45) mmHg ABG pO2 (83-108) mmHg ABG HCO3 (21-25) mmol/L ABG Total CO2 (19-24) mmol/L Chloride (98-107) mmol/L BUN (7-17) mg/dL Creatinine (0.52-1.04) mg/dL Glucose (74-99) mg/dL POC Glucose (mg/dL) 130 H 129 H 131 H (75-99) mg/dL Calcium (8.4-10.2) mg/dL AST (14-36) U/L Alkaline Phosphatase (38-126) U/L Total Protein (6.3-8.2) g/dL Albumin (3.5-5.0) g/dL 08/07/18 08/07/18 08/07/18 Range/Units 04:20 04:20 04:20 RBC 2.71 L (3.80-5.40) m/uL Hgb 7.9 L (11.4-16.0) gm/dL Hct 24.9 L (34.0-46.0) % RDW 15.8 H (11.5-15.5) % Plt Count 75 L (150-450) k/uL Neutrophils # (Manual) 8.40 H (1.3-7.7) k/uL Myelocytes # (Manual) 0.20 H (0) k/uL APTT 62.1 H (22.0-30.0) sec ABG pCO2 (35-45) mmHg ABG pO2 (83-108) mmHg ABG HCO3 (21-25) mmol/L ABG Total CO2 (19-24) mmol/L Chloride 112 H (98-107) mmol/L BUN 19 H (7-17) mg/dL Creatinine 0.49 L (0.52-1.04) mg/dL Glucose 139 H (74-99) mg/dL POC Glucose (mg/dL) (75-99) mg/dL Calcium 6.9 L (8.4-10.2) mg/dL AST 51 H (14-36) U/L Alkaline Phosphatase 143 H (38-126) U/L Total Protein 3.3 L (6.3-8.2) g/dL Albumin 1.4 L (3.5-5.0) g/dL 08/07/18 Range/Units 05:24 RBC (3.80-5.40) m/uL Hgb (11.4-16.0) gm/dL Hct (34.0-46.0) % RDW (11.5-15.5) % Plt Count (150-450) k/uL Neutrophils # (Manual) (1.3-7.7) k/uL Myelocytes # (Manual) (0) k/uL APTT (22.0-30.0) sec ABG pCO2 48 H (35-45) mmHg ABG pO2 74 L (83-108) mmHg ABG HCO3 29 H (21-25) mmol/L ABG Total CO2 30 H (19-24) mmol/L Chloride (98-107) mmol/L BUN (7-17) mg/dL Creatinine (0.52-1.04) mg/dL Glucose (74-99) mg/dL POC Glucose (mg/dL) (75-99) mg/dL Calcium (8.4-10.2) mg/dL AST (14-36) U/L Alkaline Phosphatase (38-126) U/L Total Protein (6.3-8.2) g/dL Albumin (3.5-5.0) g/dL - Imaging and Cardiology CT scan - abdomen: report reviewed, image reviewed CT scan - pelvis: report reviewed, image reviewed (Findings consistent with moderate anasarca including persistent subcu air of left lower quadrant) Assessment and Plan (1) S/P small bowel resection Current Visit: Yes Status: Acute Code(s): Z90.49 - ACQUIRED ABSENCE OF OTHER SPECIFIED PARTS OF DIGESTIVE TRACT SNOMED Code(s): 983487129689123 (2) Colostomy present Current Visit: Yes Status: Acute Code(s): Z93.3 - COLOSTOMY STATUS SNOMED Code(s): 795085345 (3) ARDS (adult respiratory distress syndrome) Current Visit: Yes Status: Acute Code(s): J80 - ACUTE RESPIRATORY DISTRESS SYNDROME SNOMED Code(s): 85694729 (4) Acute respiratory failure with hypoxia Current Visit: Yes Status: Acute Code(s): J96.01 - ACUTE RESPIRATORY FAILURE WITH HYPOXIA SNOMED Code(s): 98312647 (5) Colonic diverticular abscess Current Visit: Yes Status: Acute Code(s): K57.20 - DVTRCLI OF LG INT W PERFORATION AND ABSCESS W/O BLEEDING SNOMED Code(s): 304515441 (6) Sepsis Current Visit: Yes Status: Acute Code(s): A41.9 - SEPSIS, UNSPECIFIED ORGANISM SNOMED Code(s): 62502585
[2018-08-07] MEDS: PANTOPRAZOLE 40 MG/10 ML VIAL IVP SCH (07:55)
[2018-08-07] MEDS: CHLORHEXIDINE GLUCONATE 15 ML CUP MUCOUS MEM SCH ×2 (07:55→21:07)
[2018-08-07 08:02] LABS: Glucose,Whole Blood 167 mg/dL (75-99)
[2018-08-07] MEDS: IPRATROPIUM-ALBUTEROL 3 ML NEB INHALATION SCH ×4 (08:08→20:10)
[2018-08-07 10:01] LABS: Glucose,Whole Blood 174 mg/dL (75-99)
[2018-08-07] MEDS: SODIUM CHLORIDE 0.45% 1,000 ML IV SCH (10:01)
[2018-08-07] MEDS: FUROSEMIDE 10 MG/ML 2 ML VIAL IV SCH ×2 (11:05→21:07)
[2018-08-07 12:10] LABS: Glucose,Whole Blood 145 mg/dL (75-99)
--- NOTE | 2018-08-07 12:39 | P.PN ---
Subjective Progress Note Date: 08/07/18 CHIEF COMPLAINT: Abdominal pain HISTORY OF PRESENT ILLNESS: Patient is status post sigmoid colectomy with end colostomy, takedown of splenic flexure, small bowel resection 2, and appendectomy. POD #8. Patient remains on ventilator. She remains on vasopressors. Currently Levophed at 8 mics per minute. Ostomy with brown stool noted. Wound vac remains intact with serous drainage. 750cc overnight and approximately 500cc thus far per day shift. Wound images from this weekend reviewed revealing necrotic tissue. PHYSICAL EXAM: VITAL SIGNS: Currently stable on vasopressors GENERAL: Sedated on ventilator. HEENT: No sclera icterus. Extraocular movements grossly intact. Moist buccal mucosa. Head is atraumatic, normocephalic. No nasal drainage. NECK: Supple without lymphadenopathy. CHEST: Equal bilateral excursions. Currently vented. CARDIOVASCULAR: Regular rate with regular rhythm. Palpable 2+ radial pulses. ABDOMEN: Distended. Ostomy to left lower quadrant with liquid stool. Wound VAC to midline incision NEUROLOGIC: Unable to assess secondary to intubation PSYCH: Unable to assess secondary to intubation ASSESSMENT: 1. Small bowel obstruction with perforated sigmoid colon and fecal peritonitis 2. Status post sigmoid colectomy with end colostomy, takedown of splenic flexure, small bowel resection 2, and appendectomy 3. Postoperative ileus PLAN: 1. ICU management per emergency medcl emt. 2. Wean Levophed as tolerated. 3. Continue wound vac 4. Will speak with Dr. Jacobson regarding necrotic tissue and update ICU team 5. Continue TPN. Will address trickle feeds with Dr. Jacobson. Nurse practitioner note has been reviewed by physician. Signing provider agrees with the documented findings, assessment, and plan of care. Objective - Vital Signs Vital signs: Vital Signs Temp 98.1 F 08/07/18 08:00 Pulse 115 H 08/07/18 12:21 Resp 20 08/07/18 10:00 BP 93/50 08/07/18 10:00 Pulse Ox 94 L 08/07/18 10:00 Intake & Output 08/06/18 08/07/18 08/07/18 18:59 06:59 18:59 Intake Total 1746.867 9239.539 417.337 Output Total 2090 1417 1025 Balance -758.708 -165.461 -607.663 Weight 87.1 kg 87.1 kg Intake: IV 992 948 212 0.9 NACL 120 120 Ampicillin-Sulbactam 3 gm 100 100 In Sodium Chloride 0.9% 100 ml @ 200 mls/hr IVPB Q6HR JESSICA Rx#:[id number] Pressure bag 72 78 12 Sodium Chloride 0.45% 1, 600 650 100 000 ml @ 50 mls/hr IV . Q20H JESSICA Rx#:[id number] metroNIDAZOLE-NS PMX 500 100 100 mg In Saline 1 100ml.bag @ 100 mls/hr IVPB Q8HR JESSICA Rx#:[id number] Intake, IV Titration 339.292 223.539 205.337 Amount Heparin Sod,Pork in 0.45% 9.8 NaCl 25,000 unit In 0.45 % NaCl 1 250ml.bag @ 12 UNITS/KG/HR 10 mls/hr IV .Q24H JESSICA Rx#:[id number] Insulin Regular 100 unit 0 In Sodium Chloride 0.9% 100 ml @ Per Protocol IV .Q0M JESSICA Rx#:[id number] Norepinephrine 16 mg In 136.870 7.941 45.811 Sodium Chloride 0.9% 250 ml @ Titrate IV .Q0M JESSICA Rx#:[id number] Propofol 1,000 mg In 192.622 215.598 159.526 Empty Bag 1 bag @ Titrate IV .Q0M JESSICA Rx#: [id number] Oral 80 Output: Drainage 500 500 750 Medial Abdomen 500 500 750 Urine 790 617 75 Stool 800 300 200 Other: Voiding Method Indwelling Catheter Indwelling Catheter Indwelling Catheter # Bowel Movements 1 ABP, PAP, CO, CI - Last Documented Arterial Blood Pressure 113/48 - Labs CBC & Chem 7: 08/07/18 04:20 08/07/18 04:20 Labs: Abnormal Lab Results - Last 24 Hours (Table) 08/06/18 08/06/18 08/06/18 Range/Units 13:05 17:23 20:34 RBC (3.80-5.40) m/uL Hgb (11.4-16.0) gm/dL Hct (34.0-46.0) % RDW (11.5-15.5) % Plt Count (150-450) k/uL Neutrophils # (Manual) (1.3-7.7) k/uL Myelocytes # (Manual) (0) k/uL APTT 57.4 H (22.0-30.0) sec ABG pCO2 (35-45) mmHg ABG pO2 (83-108) mmHg ABG HCO3 (21-25) mmol/L ABG Total CO2 (19-24) mmol/L Chloride (98-107) mmol/L BUN (7-17) mg/dL Creatinine (0.52-1.04) mg/dL Glucose (74-99) mg/dL POC Glucose (mg/dL) 111 H 125 H (75-99) mg/dL Calcium (8.4-10.2) mg/dL AST (14-36) U/L Alkaline Phosphatase (38-126) U/L Total Protein (6.3-8.2) g/dL Albumin (3.5-5.0) g/dL 08/06/18 08/07/18 08/07/18 Range/Units 22:02 00:03 02:08 RBC (3.80-5.40) m/uL Hgb (11.4-16.0) gm/dL Hct (34.0-46.0) % RDW (11.5-15.5) % Plt Count (150-450) k/uL Neutrophils # (Manual) (1.3-7.7) k/uL Myelocytes # (Manual) (0) k/uL APTT (22.0-30.0) sec ABG pCO2 (35-45) mmHg ABG pO2 (83-108) mmHg ABG HCO3 (21-25) mmol/L ABG Total CO2 (19-24) mmol/L Chloride (98-107) mmol/L BUN (7-17) mg/dL Creatinine (0.52-1.04) mg/dL Glucose (74-99) mg/dL POC Glucose (mg/dL) 121 H 130 H 129 H (75-99) mg/dL Calcium (8.4-10.2) mg/dL AST (14-36) U/L Alkaline Phosphatase (38-126) U/L Total Protein (6.3-8.2) g/dL Albumin (3.5-5.0) g/dL 08/07/18 08/07/18 08/07/18 Range/Units 04:03 04:20 04:20 RBC 2.71 L (3.80-5.40) m/uL Hgb 7.9 L (11.4-16.0) gm/dL Hct 24.9 L (34.0-46.0) % RDW 15.8 H (11.5-15.5) % Plt Count 75 L (150-450) k/uL Neutrophils # (Manual) 8.40 H (1.3-7.7) k/uL Myelocytes # (Manual) 0.20 H (0) k/uL APTT (22.0-30.0) sec ABG pCO2 (35-45) mmHg ABG pO2 (83-108) mmHg ABG HCO3 (21-25) mmol/L ABG Total CO2 (19-24) mmol/L Chloride 112 H (98-107) mmol/L BUN 19 H (7-17) mg/dL Creatinine 0.49 L (0.52-1.04) mg/dL Glucose 139 H (74-99) mg/dL POC Glucose (mg/dL) 131 H (75-99) mg/dL Calcium 6.9 L (8.4-10.2) mg/dL AST 51 H (14-36) U/L Alkaline Phosphatase 143 H (38-126) U/L Total Protein 3.3 L (6.3-8.2) g/dL Albumin 1.4 L (3.5-5.0) g/dL 08/07/18 08/07/18 08/07/18 Range/Units 04:20 05:24 08:00 RBC (3.80-5.40) m/uL Hgb (11.4-16.0) gm/dL Hct (34.0-46.0) % RDW (11.5-15.5) % Plt Count (150-450) k/uL Neutrophils # (Manual) (1.3-7.7) k/uL Myelocytes # (Manual) (0) k/uL APTT 62.1 H (22.0-30.0) sec ABG pCO2 48 H (35-45) mmHg ABG pO2 74 L (83-108) mmHg ABG HCO3 29 H (21-25) mmol/L ABG Total CO2 30 H (19-24) mmol/L Chloride (98-107) mmol/L BUN (7-17) mg/dL Creatinine (0.52-1.04) mg/dL Glucose (74-99) mg/dL POC Glucose (mg/dL) 167 H (75-99) mg/dL Calcium (8.4-10.2) mg/dL AST (14-36) U/L Alkaline Phosphatase (38-126) U/L Total Protein (6.3-8.2) g/dL Albumin (3.5-5.0) g/dL 08/07/18 08/07/18 Range/Units 09:58 12:04 RBC (3.80-5.40) m/uL Hgb (11.4-16.0) gm/dL Hct (34.0-46.0) % RDW (11.5-15.5) % Plt Count (150-450) k/uL Neutrophils # (Manual) (1.3-7.7) k/uL Myelocytes # (Manual) (0) k/uL APTT (22.0-30.0) sec ABG pCO2 (35-45) mmHg ABG pO2 (83-108) mmHg ABG HCO3 (21-25) mmol/L ABG Total CO2 (19-24) mmol/L Chloride (98-107) mmol/L BUN (7-17) mg/dL Creatinine (0.52-1.04) mg/dL Glucose (74-99) mg/dL POC Glucose (mg/dL) 174 H 145 H (75-99) mg/dL Calcium (8.4-10.2) mg/dL AST (14-36) U/L Alkaline Phosphatase (38-126) U/L Total Protein (6.3-8.2) g/dL Albumin (3.5-5.0) g/dL Assessment and Plan (1) Abdominal pain Current Visit: Yes Status: Acute Code(s): R10.9 - UNSPECIFIED ABDOMINAL PAIN SNOMED Code(s): 34618259 (2) Decreased oral intake Current Visit: Yes Status: Acute Code(s): R63.8 - OTHER SYMPTOMS AND SIGNS CONCERNING FOOD AND FLUID INTAKE SNOMED Code(s): 858671209 (3) Colonic diverticular abscess Current Visit: Yes Status: Acute Code(s): K57.20 - DVTRCLI OF LG INT W PERFORATION AND ABSCESS W/O BLEEDING SNOMED Code(s): 858350917 (4) Partial bowel obstruction Current Visit: Yes Status: Acute Code(s): K56.600 - PARTIAL INTESTINAL OBSTRUCTION, UNSPECIFIED TO CAUSE SNOMED Code(s): 47970745
--- NOTE | 2018-08-07 13:54 | PN ---
PROGRESS NOTE DATE OF SERVICE: 08/07/2018 REASON FOR FOLLOWUP: Abdominal sepsis. INTERVAL HISTORY: The patient is currently afebrile. The patient's abdominal wound VAC has to be changed because of the leak. Wound still has some necrotic changes per the RN. She is currently responding to 6 mcg of Levophed. Remains to be intubated on the vent. PHYSICAL EXAMINATION: Blood pressure 113/48 with a pulse of 101, temperature of 98. She is 94% on 50% FiO2. General description is a middle aged female, intubated on the vent. RESPIRATORY SYSTEM: Unlabored breathing, clear to auscultation anteriorly. HEART: S1, S2. Regular rate and rhythm. ABDOMEN: Soft, the wound is currently covered with a wound VAC. LABS: Hemoglobin 7.8, white count of 9.9 with a BUN of 19, creatinine 0.49. DIAGNOSTIC IMPRESSION AND PLAN: Patient with abdominal abscess from sigmoid diverticulitis requiring extensive surgery. The patient's culture has been E coli anaerobic gram-negative bacilli for which the patient to be currently adequate coverage with Unasyn and Flagyl. Await evaluation of the wound by the surgical team. Prognosis remains to be guarded. Continue with supportive care. MMODL / IJN: [id number] /
[2018-08-07 14:33] LABS: Glucose,Whole Blood 135 mg/dL (75-99)
--- NOTE | 2018-08-07 15:54 | P.PN ---
Subjective Progress Note Date: 08/07/18 A 58-year-old female patient was being seen in the follow-up in the intensive care unit. The patient has a complicated history of perforated diverticulitis with abscess formation and the patient has undergone expiratory laparotomy with sigmoid colectomy and colostomy and appendicectomy and the patient is postop day #8. The patient's course was complicated by development of sepsis which is secondary to intra-abdominal source. A previous fine-needle aspirate of the abdominal abscesses yielded gram-negative and anaerobes and the patient is currently on broad-spectrum antibiotics including a combination of Unasyn and Flagyl. The patient also developed acute hypoxic respiratory failure secondary to ARDS. The patient to be reintubated on 08/01/2018 and the patient has been intubated since. In terms of her condition, the patient remains on a mechanical ventilator on assist control mode. Today the tidal volume of 350, FiO2 of 60%, PEEP of 8 and a respiratory rate of 22. Chest x-ray showed diffuse bilateral pulmonary infiltrates. The lines are in good location. ET tube is in a good location. CVP is at 10. The morning blood gases showed a pH of 7.39 with a pCO2 of 48 and pO2 of 74 and this was on FiO2 of 60%. No significant orotracheal secretions. From the neurologic standpoint, the patient is sedated with Diprivan and she is calm and comfortable and success with the mechanical ventilator. From the hemodynamic standpoint, the patient CVP is at 10. The patient was on pressors and the patient was and 6 mics of norepinephrine infusion for hemodynamic support.. She has however developed significant amount of edema in all 4 extremities patient upper extremities bilaterally and she will benefit from diuresis. She is on TPN for nutritional support. She is receiving TPN through the triple-lumen catheter. The patient is still sedated with Diprivan and the Diprivan is running at 45 mics per KG per minute and the patient on insulin drip for blood sugar control. In terms of her abdominal finding, the patient has developed some necrosis along the open wound edges bilaterally. The wound VAC is in place. There is considerable amount of output through the wound VAC and output is quite dark and cloudy. Her white cell count is at 9.9. Her serum albumin is down to 1.4 with a total protein of 3.3. Renal function is stable for now. Objective - Vital Signs Vital signs: Vital Signs Temp 98.8 F 08/07/18 12:00 Pulse 103 H 08/07/18 14:00 Resp 19 08/07/18 14:00 BP 93/50 08/07/18 10:00 Pulse Ox 92 L 08/07/18 14:00 Intake & Output 08/06/18 08/07/18 08/07/18 18:59 06:59 18:59 Intake Total 5891.608 7838.539 647.337 Output Total 2090 1417 2955 Balance -758.708 -165.461 -2307.663 Weight 87.1 kg 87.1 kg Intake: IV 992 948 442 0.9 NACL 120 120 Ampicillin-Sulbactam 3 gm 100 100 100 In Sodium Chloride 0.9% 100 ml @ 200 mls/hr IVPB Q6HR JESSICA Rx#:[id number] Pressure bag 72 78 42 Sodium Chloride 0.45% 1, 600 650 200 000 ml @ 20 mls/hr IV . Q24H JESSICA Rx#:[id number] metroNIDAZOLE-NS PMX 500 100 100 mg In Saline 1 100ml.bag @ 100 mls/hr IVPB Q8HR JESSICA Rx#:[id number] Intake, IV Titration 339.292 223.539 205.337 Amount Heparin Sod,Pork in 0.45% 9.8 NaCl 25,000 unit In 0.45 % NaCl 1 250ml.bag @ 12 UNITS/KG/HR 10 mls/hr IV .Q24H JESSICA Rx#:[id number] Insulin Regular 100 unit 0 In Sodium Chloride 0.9% 100 ml @ Per Protocol IV .Q0M JESSICA Rx#:[id number] Norepinephrine 16 mg In 136.870 7.941 45.811 Sodium Chloride 0.9% 250 ml @ Titrate IV .Q0M JESSICA Rx#:[id number] Propofol 1,000 mg In 192.622 215.598 159.526 Empty Bag 1 bag @ Titrate IV .Q0M JESSICA Rx#: [id number] Oral 80 Output: Drainage 678 661 0300 Medial Abdomen 480 323 1768 Urine 552 438 1550 Stool 800 300 200 Other: Voiding Method Indwelling Catheter Indwelling Catheter Indwelling Catheter # Bowel Movements 1 ABP, PAP, CO, CI - Last Documented Arterial Blood Pressure 108/49 - Exam Gen. appearance the patient is intubated, comfortable likely distress the patient is sedated and the patient is 6 is with the mechanical ventilator. Orogastric and orotracheal tube are both in place. Head exam was generally normal. There was no scleral icterus or corneal arcus. Mucous membranes were moist. Neck was supple and without jugular venous distension, thyromegaly, or carotid bruits. Carotids were easily palpable bilaterally. There was no adenopathy. The patient has a triple lumen catheter in the left subclavian. The patient also has orogastric and orotracheal tube. Lungs are diminished bilaterally and there is some few basilar crackles heard in the mid and lower lung aguilera bilaterally. No wheezing. Cardiac exam revealed the PMI to be normally situated and sized. The rhythm was regular and no extrasystoles were noted during several minutes of auscultation. The first and second heart sounds were normal and physiologic splitting of the second heart sound was noted. There were no murmurs, rubs, clicks, or gallops. Abdomen exam is soft and the abdominal wound VAC is in place with serous drainage. There is evidence of necrosis of the subcutaneous tissue along the wound borders bilaterally. The patient has a functioning colostomy. There is minimal amount of output and the tissue still viable. Bowel sounds are hypoactive. Extremities are showing extensive edema in all 4 extremities pressure in the upper extremities bilaterally. Neurologic the patient is sedated, comfortable not in acute distress. Exertional skin shows that the skin is poorly perfused. There is some moderate amount of skin weeping and upper extremities bilaterally. There is a 1 VAC over the mid anterior abdominal wall. - Labs CBC & Chem 7: 08/07/18 04:20 08/07/18 04:20 Labs: Abnormal Lab Results - Last 24 Hours (Table) 08/06/18 08/06/18 08/06/18 Range/Units 17:23 20:34 22:02 RBC (3.80-5.40) m/uL Hgb (11.4-16.0) gm/dL Hct (34.0-46.0) % RDW (11.5-15.5) % Plt Count (150-450) k/uL Neutrophils # (Manual) (1.3-7.7) k/uL Myelocytes # (Manual) (0) k/uL APTT (22.0-30.0) sec ABG pCO2 (35-45) mmHg ABG pO2 (83-108) mmHg ABG HCO3 (21-25) mmol/L ABG Total CO2 (19-24) mmol/L Chloride (98-107) mmol/L BUN (7-17) mg/dL Creatinine (0.52-1.04) mg/dL Glucose (74-99) mg/dL POC Glucose (mg/dL) 111 H 125 H 121 H (75-99) mg/dL Calcium (8.4-10.2) mg/dL AST (14-36) U/L Alkaline Phosphatase (38-126) U/L Total Protein (6.3-8.2) g/dL Albumin (3.5-5.0) g/dL 08/07/18 08/07/18 08/07/18 Range/Units 00:03 02:08 04:03 RBC (3.80-5.40) m/uL Hgb (11.4-16.0) gm/dL Hct (34.0-46.0) % RDW (11.5-15.5) % Plt Count (150-450) k/uL Neutrophils # (Manual) (1.3-7.7) k/uL Myelocytes # (Manual) (0) k/uL APTT (22.0-30.0) sec ABG pCO2 (35-45) mmHg ABG pO2 (83-108) mmHg ABG HCO3 (21-25) mmol/L ABG Total CO2 (19-24) mmol/L Chloride (98-107) mmol/L BUN (7-17) mg/dL Creatinine (0.52-1.04) mg/dL Glucose (74-99) mg/dL POC Glucose (mg/dL) 130 H 129 H 131 H (75-99) mg/dL Calcium (8.4-10.2) mg/dL AST (14-36) U/L Alkaline Phosphatase (38-126) U/L Total Protein (6.3-8.2) g/dL Albumin (3.5-5.0) g/dL 08/07/18 08/07/18 08/07/18 Range/Units 04:20 04:20 04:20 RBC 2.71 L (3.80-5.40) m/uL Hgb 7.9 L (11.4-16.0) gm/dL Hct 24.9 L (34.0-46.0) % RDW 15.8 H (11.5-15.5) % Plt Count 75 L (150-450) k/uL Neutrophils # (Manual) 8.40 H (1.3-7.7) k/uL Myelocytes # (Manual) 0.20 H (0) k/uL APTT 62.1 H (22.0-30.0) sec ABG pCO2 (35-45) mmHg ABG pO2 (83-108) mmHg ABG HCO3 (21-25) mmol/L ABG Total CO2 (19-24) mmol/L Chloride 112 H (98-107) mmol/L BUN 19 H (7-17) mg/dL Creatinine 0.49 L (0.52-1.04) mg/dL Glucose 139 H (74-99) mg/dL POC Glucose (mg/dL) (75-99) mg/dL Calcium 6.9 L (8.4-10.2) mg/dL AST 51 H (14-36) U/L Alkaline Phosphatase 143 H (38-126) U/L Total Protein 3.3 L (6.3-8.2) g/dL Albumin 1.4 L (3.5-5.0) g/dL 08/07/18 08/07/18 08/07/18 Range/Units 05:24 08:00 09:58 RBC (3.80-5.40) m/uL Hgb (11.4-16.0) gm/dL Hct (34.0-46.0) % RDW (11.5-15.5) % Plt Count (150-450) k/uL Neutrophils # (Manual) (1.3-7.7) k/uL Myelocytes # (Manual) (0) k/uL APTT (22.0-30.0) sec ABG pCO2 48 H (35-45) mmHg ABG pO2 74 L (83-108) mmHg ABG HCO3 29 H (21-25) mmol/L ABG Total CO2 30 H (19-24) mmol/L Chloride (98-107) mmol/L BUN (7-17) mg/dL Creatinine (0.52-1.04) mg/dL Glucose (74-99) mg/dL POC Glucose (mg/dL) 167 H 174 H (75-99) mg/dL Calcium (8.4-10.2) mg/dL AST (14-36) U/L Alkaline Phosphatase (38-126) U/L Total Protein (6.3-8.2) g/dL Albumin (3.5-5.0) g/dL 08/07/18 08/07/18 Range/Units 12:04 14:06 RBC (3.80-5.40) m/uL Hgb (11.4-16.0) gm/dL Hct (34.0-46.0) % RDW (11.5-15.5) % Plt Count (150-450) k/uL Neutrophils # (Manual) (1.3-7.7) k/uL Myelocytes # (Manual) (0) k/uL APTT (22.0-30.0) sec ABG pCO2 (35-45) mmHg ABG pO2 (83-108) mmHg ABG HCO3 (21-25) mmol/L ABG Total CO2 (19-24) mmol/L Chloride (98-107) mmol/L BUN (7-17) mg/dL Creatinine (0.52-1.04) mg/dL Glucose (74-99) mg/dL POC Glucose (mg/dL) 145 H 135 H (75-99) mg/dL Calcium (8.4-10.2) mg/dL AST (14-36) U/L Alkaline Phosphatase (38-126) U/L Total Protein (6.3-8.2) g/dL Albumin (3.5-5.0) g/dL Assessment and Plan Plan: Assessment 1 complicated diverticular abscess with bowel perforation. The patient is also expiratory laparotomy, sigmoid colectomy and ostomy appendectomy. The patient is postop day #8 2 sepsis secondary to abdominal infection related to a complicated diverticular abscess. The patient has gram-negative/E. coli and Beta Strep and Anaerobes in the Intra-Abdominal Abscess and the Patient Is on a Broad-Spectrum Antibiotics Utilizing a Combination of Unasyn and Flagyl. 3 Shock Secondary to Septic Shock. The Patient Has a CVP of around 10, Still Requiring Pressors for Hemodynamic Support 4 Extensive Third Spacing Secondary to Hypoproteinemia and Hypoproteinemia and Fluid Overload 5 TPN for Nutritional Support 6 Open Wound with Necrosis of the Wound Surface, and the patient has a wound VAC in place 7 acute hypoxic respiratory failure secondary to ARDS investigation with abdominal sepsis 8 left radial artery occlusion currently on IV heparin. Vascular surgery on the case and there is no significant progression and the thumb necrosis on today 's evaluation. Patient remains on IV heparin 9 severe hypoproteinemia and hypoproteinemia 10 chronic anemia, expected outcome of the above-mentioned comorbidities 11 lactic acidosis, improved 12 carotid artery insufficiency currently on IV hydrocortisone Plan This case was discussed with the general surgeon. The wound VAC will be stopped today and the patient be taken to the operating room for another explanation him a abdominal washout and debridement. We'll continue TPN for now. Cut down the IV fluids to KVO. Start the patient on low-dose Lasix 20 mg IV push every 12 hours. Continue IV Unasyn. Continue Flagyl. Keep the patient sedated for now and give the patient periodic sedation holidays. TPN for nutritional support. Unable to wean the mechanical ventilator any further as the patient is an ARDS for now. Oxidation is stable. Condition is critical. Outcome is poor baseline above-mentioned comorbidities. We'll continue to follow. This is a critically care evaluation that was done and more than 30 minutes. Time with Patient: Greater than 30
[2018-08-07 16:18] LABS: Glucose,Whole Blood 117 mg/dL (75-99)
[2018-08-07 18:12] LABS: Glucose,Whole Blood 109 mg/dL (75-99)
--- NOTE | 2018-08-07 18:52 | P.PN ---
Subjective Progress Note Date: 08/07/18 (delayed charting patient seen at 0900) Principal diagnosis: abdominal pain Patient is a 58-year-old female with no significant past medical history o who presented to the emergency department at the recommendations of her PCP for dehydration, nausea, and vomiting. In the emergency department she underwent an extensive evaluation. Computed tomography scan of the abdomen showed diverticular abscess with partial bowel obstruction she was admitted for further management. Initial laboratory analysis showed a sodium of 132, carbon dioxide 21, and a negative urinalysis. She was started on IV fluids, antibiotics and was admitted. General surgery was consulted. Patient initially wanted conservative management did not want surgery. Interventional radiology was consulted and she underwent abscess ranges placement of percutaneous drain on 07/28/18. She was found to have an elevated PTT and hematology was consulted. They felt that this was likely due to poor nutritional intake and ordered additional vitamin K. Her PT INR normalized with additional vitamin K. She was seen by ID who discontinue meropenem and started her on Zosyn. She had initially been progressing well. Overnight on she developed increasing pain and nausea. She started requiring IV narcotics for treatment of her pain. She then became tachycardic. Morning blood work on 07/30 showed a depressed white blood cell count at 2.5, and carbon dioxide of 12. Stat CT with IV contrast as well as a stat lactic acid and a [address] abdomen and pelvis showed free air. Case discussed with Dr. Jacobson and patient was taken urgently to the operating room for ex-lap due to perforated viscus. During the procedure, the patient was noted to have fecal peritonitis and underwent a sigmoid colectomy with end colostomy. She was transferred to the ICU post-operatively and was started on IV pressors. The patient was extubated on 07/31/18. However, she continued to require Levophed. ID recommended the patient to be switched to Unasyn and Flagyl. A random cortisol level was drawn and was 22, for which patient was started on hydrocortisone for suspected adrenal insufficiency. On 08/02 the patient developed respiratory distress and was re-intubated. She was also noted to have L thumb discoloration with history of art line placement on that wrist. Vascular surgery was consulted and did not recommend urgent surgical intervention. Her pressors are being able to taken off momentarily on 08/06 but required to be restarted on 08/07. Patient seen and examined at bedside. Sedated on vent. Nurse present. Overnight her leave aside was stopped she became tachycardic and asynchronous with the present. Her sedation was increased and her blood pressure dropped only to find was restarted. She is currently on propofol, norepinephrine at 6, insulin drip and TPN. Wound VAC in place however edges of wound dusky appearing. Objective - Vital Signs Vital signs: Vital Signs Temp 98.8 F 08/07/18 12:00 Pulse 111 H 08/07/18 15:59 Resp 19 08/07/18 14:00 BP 93/50 08/07/18 10:00 Pulse Ox 92 L 08/07/18 14:00 Intake & Output 08/06/18 08/07/18 08/07/18 18:59 06:59 18:59 Intake Total 1271.088 3684.539 891.418 Output Total 2090 1417 3635 Balance -758.708 -165.461 -2743.582 Weight 87.1 kg 87.1 kg Intake: IV 992 948 594 0.9 NACL 120 120 Ampicillin-Sulbactam 3 gm 100 100 100 In Sodium Chloride 0.9% 100 ml @ 200 mls/hr IVPB Q6HR [facility] Rx#:[id number] Pressure bag 72 78 54 Sodium Chloride 0.45% 1, 600 650 240 000 ml @ 20 mls/hr IV . Q24H [facility] Rx#:[id number] metroNIDAZOLE-NS PMX 500 100 200 mg In Saline 1 100ml.bag @ 100 mls/hr IVPB Q8HR [facility] Rx#:[id number] Intake, IV Titration 339.292 223.539 297.418 Amount Heparin Sod,Pork in 0.45% 9.8 NaCl 25,000 unit In 0.45 % NaCl 1 250ml.bag @ 12 UNITS/KG/HR 10 mls/hr IV .Q24H [facility] Rx#:[id number] Insulin Regular 100 unit 0 In Sodium Chloride 0.9% 100 ml @ Per Protocol IV .Q0M [facility] Rx#:[id number] Norepinephrine 16 mg In 136.870 7.941 45.811 Sodium Chloride 0.9% 250 ml @ Titrate IV .Q0M [facility] Rx#:[id number] Propofol 1,000 mg In 192.622 215.598 251.607 Empty Bag 1 bag @ Titrate IV .Q0M [facility] Rx#: [id number] Oral 80 Output: Drainage 876 863 9635 Medial Abdomen 994 774 2350 Urine 355 592 0726 Stool 800 300 200 Other: Voiding Method Indwelling Catheter Indwelling Catheter Indwelling Catheter # Bowel Movements 1 ABP, PAP, CO, CI - Last Documented Arterial Blood Pressure 108/49 - Exam General: ill appearing, sedated on vent, no distress, appears at stated age Derm: cool, dry, left thumb dusky no skin sloughing Head: atraumatic, normocephalic, symmetric Eyes: PERRL, no lid lag, anicteric sclera Mouth: no lip lesion, mucus membranes moist Cardiovascular: [S1S2 tachy, no murmur, positive posterior tibial pulse bilateral, Lungs: course bs bilateral, no rhonchi, no rales , no accessory muscle use, on vent with ET tube in place Abdominal: soft, nontender to palpation through sedation, no guarding, no appreciable organomegaly, wound vac in place, urine clear Ext: no gross muscle atrophy, diffuse anasarca, no contractures Neuro: + cough, breathing over vent Psych:sedated on vent - Labs CBC & Chem 7: 08/07/18 04:20 08/07/18 04:20 Labs: Abnormal Lab Results - Last 24 Hours (Table) 08/06/18 08/06/18 08/06/18 Range/Units 17:23 20:34 22:02 RBC (3.80-5.40) m/uL Hgb (11.4-16.0) gm/dL Hct (34.0-46.0) % RDW (11.5-15.5) % Plt Count (150-450) k/uL Neutrophils # (Manual) (1.3-7.7) k/uL Myelocytes # (Manual) (0) k/uL APTT (22.0-30.0) sec ABG pCO2 (35-45) mmHg ABG pO2 (83-108) mmHg ABG HCO3 (21-25) mmol/L ABG Total CO2 (19-24) mmol/L Chloride (98-107) mmol/L BUN (7-17) mg/dL Creatinine (0.52-1.04) mg/dL Glucose (74-99) mg/dL POC Glucose (mg/dL) 111 H 125 H 121 H (75-99) mg/dL Calcium (8.4-10.2) mg/dL AST (14-36) U/L Alkaline Phosphatase (38-126) U/L Total Protein (6.3-8.2) g/dL Albumin (3.5-5.0) g/dL 08/07/18 08/07/18 08/07/18 Range/Units 00:03 02:08 04:03 RBC (3.80-5.40) m/uL Hgb (11.4-16.0) gm/dL Hct (34.0-46.0) % RDW (11.5-15.5) % Plt Count (150-450) k/uL Neutrophils # (Manual) (1.3-7.7) k/uL Myelocytes # (Manual) (0) k/uL APTT (22.0-30.0) sec ABG pCO2 (35-45) mmHg ABG pO2 (83-108) mmHg ABG HCO3 (21-25) mmol/L ABG Total CO2 (19-24) mmol/L Chloride (98-107) mmol/L BUN (7-17) mg/dL Creatinine (0.52-1.04) mg/dL Glucose (74-99) mg/dL POC Glucose (mg/dL) 130 H 129 H 131 H (75-99) mg/dL Calcium (8.4-10.2) mg/dL AST (14-36) U/L Alkaline Phosphatase (38-126) U/L Total Protein (6.3-8.2) g/dL Albumin (3.5-5.0) g/dL 08/07/18 08/07/18 08/07/18 Range/Units 04:20 04:20 04:20 RBC 2.71 L (3.80-5.40) m/uL Hgb 7.9 L (11.4-16.0) gm/dL Hct 24.9 L (34.0-46.0) % RDW 15.8 H (11.5-15.5) % Plt Count 75 L (150-450) k/uL Neutrophils # (Manual) 8.40 H (1.3-7.7) k/uL Myelocytes # (Manual) 0.20 H (0) k/uL APTT 62.1 H (22.0-30.0) sec ABG pCO2 (35-45) mmHg ABG pO2 (83-108) mmHg ABG HCO3 (21-25) mmol/L ABG Total CO2 (19-24) mmol/L Chloride 112 H (98-107) mmol/L BUN 19 H (7-17) mg/dL Creatinine 0.49 L (0.52-1.04) mg/dL Glucose 139 H (74-99) mg/dL POC Glucose (mg/dL) (75-99) mg/dL Calcium 6.9 L (8.4-10.2) mg/dL AST 51 H (14-36) U/L Alkaline Phosphatase 143 H (38-126) U/L Total Protein 3.3 L (6.3-8.2) g/dL Albumin 1.4 L (3.5-5.0) g/dL 08/07/18 08/07/18 08/07/18 Range/Units 05:24 08:00 09:58 RBC (3.80-5.40) m/uL Hgb (11.4-16.0) gm/dL Hct (34.0-46.0) % RDW (11.5-15.5) % Plt Count (150-450) k/uL Neutrophils # (Manual) (1.3-7.7) k/uL Myelocytes # (Manual) (0) k/uL APTT (22.0-30.0) sec ABG pCO2 48 H (35-45) mmHg ABG pO2 74 L (83-108) mmHg ABG HCO3 29 H (21-25) mmol/L ABG Total CO2 30 H (19-24) mmol/L Chloride (98-107) mmol/L BUN (7-17) mg/dL Creatinine (0.52-1.04) mg/dL Glucose (74-99) mg/dL POC Glucose (mg/dL) 167 H 174 H (75-99) mg/dL Calcium (8.4-10.2) mg/dL AST (14-36) U/L Alkaline Phosphatase (38-126) U/L Total Protein (6.3-8.2) g/dL Albumin (3.5-5.0) g/dL 08/07/18 08/07/18 08/07/18 Range/Units 12:04 14:06 16:14 RBC (3.80-5.40) m/uL Hgb (11.4-16.0) gm/dL Hct (34.0-46.0) % RDW (11.5-15.5) % Plt Count (150-450) k/uL Neutrophils # (Manual) (1.3-7.7) k/uL Myelocytes # (Manual) (0) k/uL APTT (22.0-30.0) sec ABG pCO2 (35-45) mmHg ABG pO2 (83-108) mmHg ABG HCO3 (21-25) mmol/L ABG Total CO2 (19-24) mmol/L Chloride (98-107) mmol/L BUN (7-17) mg/dL Creatinine (0.52-1.04) mg/dL Glucose (74-99) mg/dL POC Glucose (mg/dL) 145 H 135 H 117 H (75-99) mg/dL Calcium (8.4-10.2) mg/dL AST (14-36) U/L Alkaline Phosphatase (38-126) U/L Total Protein (6.3-8.2) g/dL Albumin (3.5-5.0) g/dL Assessment and Plan Assessment: Diverticulitis with abscess and bowel perforation with septic shock s/p sigmoid colectomy, small bowel resection and appendectomy now with wound necrosis - NGT - wean levophed as able - Surgery recs: - Dusky appearance of wound boarders, will return to OR for washout and wound revision - ID recs: polymicrobial infection, unasyn and flagyl - D/C IVF due to diffuse anasarca Adrenal insufficency - stress dose steroids - if levophed stable or decreased in AM would start to decrease. Hyperglycemia due to steroids and TPN - no hx of DM - check A1C - follow BS and continue insulin gtt Acute hypoxic respiratory failure due to fluid overload - vent management per ICU team - limit IVF - CXR reviewed appear fluid overloaded and agree with lasix started by critical care Anemia, dilutational due to prolonged ICU stay - stable - follow CBC - transfuse for HgB <6 Post-op ileus - on TPN - NGT to sucction - general surgery recs Severe Protein calorie malnutrition - on TPN Left thumb ischemia - vascular surgery recs appreciated, conservative management at this time. - on heparin gtt Thromboctypenia, reactive to sepsis, improving - follow CBC - HIT AB negative - Oncology recs appreaciated AST elevation - monitor on TPN and ABX Hyponatremia, hypokalemia, hypophosphatemia, and hypomagnesemia resolved Coagulopathy, resolved Anion Gap metabolic acidosis, resolved lactic acidosis, improved DVT prophylaxis: heparin gtt Anticipated discharge: undetermined Place:[facility] A total of 45 minutes, complex care of this patient.
[2018-08-07 20:34] LABS: Glucose,Whole Blood 117 mg/dL (75-99)
[2018-08-07] MEDS: MVI, ADULT NO.4 WITH VIT K 10 ML, TRACE (CONC-1ML/DOSE) 1 ML, POTASSIUM CHLORIDE 40 MEQ... IV SCH ×5 (20:54)
[2018-08-07 22:04] LABS: Glucose,Whole Blood 132 mg/dL (75-99)
[2018-08-07] MEDS: INSULIN REGULAR 100 UNIT in SODIUM CHLORIDE 0.9% 100 ML IV SCH (23:52)
[2018-08-07 23:53] LABS: Glucose,Whole Blood 143 mg/dL (75-99)
[2018-08-08] MEDS: HEPARIN SOD,PORK IN 0.45% NACL 25,000 UNIT in 0.45% NACL 1 250ML.BAG IV SCH ×2 (01:09→19:46)
[2018-08-08] MEDS: PROPOFOL 1,000 MG in EMPTY BAG 1 BAG IV SCH ×2 (01:11→05:12)
[2018-08-08] MEDS: HYDROmorphone 0.5 MG/0.5 ML SYRINGE IVP PRN ×4 (02:10→10:41)
[2018-08-08 02:41] LABS: Glucose,Whole Blood 158 mg/dL (75-99)
[2018-08-08 04:14] LABS: HCT 24.7 % (34.0-46.0); HGB 7.6 gm/dL (11.4-16.0); Hypochromasia Slight; MCH 28.2 pg (25.0-35.0); MCHC 30.7 g/dL (31.0-37.0); MCV 91.7 fL (80.0-100.0); Mean Platelet Volume 11.2; RBC 2.69 m/uL (3.80-5.40); RDW 15.8 % (11.5-15.5)
[2018-08-08 04:17] LABS: Glucose,Whole Blood 142 mg/dL (75-99)
[2018-08-08 04:24] LABS: Partial Thromboplastin Time 48.3 sec (22.0-30.0); Prothrombin Time 10.8 sec (9.0-12.0)
[2018-08-08 04:44] LABS: Platelet Count 85 k/uL (150-450)
[2018-08-08 05:04] LABS: ABG Base Excess 6.1 mmol/L; ABG HCO3 31 mmol/L (21-25); ABG Oxygen Saturation 92.7 % (94-97); ABG PCO2 47 mmHg (35-45); ABG PH 7.42 (7.35-7.45); ABG PO2 65 mmHg (83-108); ABG TCO2 32 mmol/L (19-24)
[2018-08-08] MEDS: METOCLOPRAMIDE 5 MG/ML 2 ML VIAL IVP SCH ×3 (05:07→18:39)
[2018-08-08] MEDS: SODIUM CHLORIDE 0.45% 1,000 ML IV SCH (05:07)
[2018-08-08] MEDS: AMPICILLIN-SULBACTAM 3 GM in SODIUM CHLORIDE 0.9% 100 ML IVPB SCH ×2 (05:07→12:08)
[2018-08-08 05:11] LABS: ALT 39 U/L (9-52); AST 75 U/L (14-36); Albumin 1.3 g/dL (3.5-5.0); Alkaline Phosphatase 156 U/L (38-126); Anion Gap 2 mmol/L; Blood Urea Nitrogen 22 mg/dL (7-17); Calcium 6.8 mg/dL (8.4-10.2); Carbon Dioxide 29 mmol/L (22-30); Chloride 108 mmol/L (98-107); Glucose 138 mg/dL (74-99); Magnesium 2.2 mg/dL (1.6-2.3); Phosphorus 4.5 mg/dL (2.5-4.5); Sodium 139 mmol/L (137-145); Total Bilirubin 0.3 mg/dL (0.2-1.3); Total Protein 3.4 g/dL (6.3-8.2)
[2018-08-08 05:22] LABS: Band Neutrophils % 14 %; Lymphocytes # (M) 0.69 k/uL (1.0-4.8); Metamyelocytes % 2 %; Monocytes # (M) 0.14 k/uL (0-1.0); Myelocytes # (M) 0.14 k/uL (0); Myelocytes % 1 %; Neutrophils % (M) 78 %; Nucleated Red Blood Cells 1 /100 WBC (0-0); Total Cells Counted 200
[2018-08-08 05:23] LABS: Metamyelocytes # (M) 0.27 k/uL (0); WBC 13.7 k/uL (3.8-10.6)
[2018-08-08 05:24] LABS: Basophilic Stippling Present; Large Platelets Present; Polychromasia Present
[2018-08-08 06:28] LABS: Glucose,Whole Blood 137 mg/dL (75-99)
[2018-08-08] MEDS: IPRATROPIUM-ALBUTEROL 3 ML NEB INHALATION SCH ×4 (07:05→20:09)
[2018-08-08] MEDS: CHLORHEXIDINE GLUCONATE 15 ML CUP MUCOUS MEM SCH ×2 (08:40→20:13)
[2018-08-08] MEDS: HYDROCORTISONE SUCCINATE 100 MG/2 ML VIAL IV SCH ×2 (08:40→16:06)
[2018-08-08] MEDS: PANTOPRAZOLE 40 MG/10 ML VIAL IVP SCH (08:40)
[2018-08-08] MEDS: FUROSEMIDE 10 MG/ML 2 ML VIAL IV SCH ×2 (08:40→20:13)
--- NOTE | 2018-08-08 08:41 | XR ---
EXAMINATION TYPE: XR chest 1V portable DATE OF EXAM: 08/08/2018 COMPARISON: 08/07/2018 INDICATION: Intubation. TECHNIQUE: Single frontal view of the chest is obtained. FINDINGS: The heart size is normal. The pulmonary vasculature is prominent. There is diffuse increased infiltrate through the bilateral lungs more so on the right. This is sligh tly improved from comparison Endotracheal tube tip is above the suresh. Nasogastric tube transverses the thorax. A central venous catheter is tip in the right atrium. IMPRESSION: 1. Patchy improving infiltrates. Correlate for atelectasis or ARDS. 2. Lines and catheters stable in position.
[2018-08-08 09:18] LABS: Glucose,Whole Blood 125 mg/dL (75-99)
[2018-08-08] MEDS: metroNIDAZOLE-NS PMX 500 MG in SALINE 1 100ML.BAG IVPB SCH ×2 (09:36→16:03)
[2018-08-08 10:07] LABS: ABG HCO3 32 mmol/L (21-25); ABG Oxygen Saturation 94.4 % (94-97); ABG PCO2 58 mmHg (35-45); ABG PH 7.35 (7.35-7.45); ABG PO2 77 mmHg (83-108); ABG TCO2 33 mmol/L (19-24)
[2018-08-08 10:27] LABS: Glucose,Whole Blood 128 mg/dL (75-99)
--- NOTE | 2018-08-08 10:45 | P.PN ---
Subjective Progress Note Date: 08/08/18 A 58-year-old female patient was being seen in the follow-up in the intensive care unit. The patient has a complicated history of perforated diverticulitis with abscess formation and the patient has undergone expiratory laparotomy with sigmoid colectomy and colostomy and appendicectomy and the patient is postop day #8. The patient's course was complicated by development of sepsis which is secondary to intra-abdominal source. A previous fine-needle aspirate of the abdominal abscesses yielded gram-negative and anaerobes and the patient is currently on broad-spectrum antibiotics including a combination of Unasyn and Flagyl. The patient also developed acute hypoxic respiratory failure secondary to ARDS. The patient to be reintubated on 08/01/2018 and the patient has been intubated since. In terms of her condition, the patient remains on a mechanical ventilator on assist control mode. Today the tidal volume of 350, FiO2 of 60%, PEEP of 8 and a respiratory rate of 22. Chest x-ray showed diffuse bilateral pulmonary infiltrates. The lines are in good location. ET tube is in a good location. CVP is at 10. The morning blood gases showed a pH of 7.39 with a pCO2 of 48 and pO2 of 74 and this was on FiO2 of 60%. No significant orotracheal secretions. From the neurologic standpoint, the patient is sedated with Diprivan and she is calm and comfortable and success with the mechanical ventilator. From the hemodynamic standpoint, the patient CVP is at 10. The patient was on pressors and the patient was and 6 mics of norepinephrine infusion for hemodynamic support.. She has however developed significant amount of edema in all 4 extremities patient upper extremities bilaterally and she will benefit from diuresis. She is on TPN for nutritional support. She is receiving TPN through the triple-lumen catheter. The patient is still sedated with Diprivan and the Diprivan is running at 45 mics per KG per minute and the patient on insulin drip for blood sugar control. In terms of her abdominal finding, the patient has developed some necrosis along the open wound edges bilaterally. The wound VAC is in place. There is considerable amount of output through the wound VAC and output is quite dark and cloudy. Her white cell count is at 9.9. Her serum albumin is down to 1.4 with a total protein of 3.3. Renal function is stable for now. On 08/08/2018, the patient remains critically ill. The plan is to take this patient to the operating room for another abdominal washout and debridement knowing that she had developed some necrosis along the wound surface. The wound VAC was stopped yesterday. The patient is sedated with Diprivan and she is calm and comfortable. The prednisone running at 20 mics. She remains on a mechanical ventilator. This morning she was a tidal volume of 350 with an FiO2 of 60% and a PEEP of 8 and the respiratory rate of 22. As mentioned earlier, the patient is an ARDS with diffuse but the pulmonary infiltrates and there is interval worsening in her oxygenation and in the bilateral pulmonary infiltrates seen on today's chest x-ray. The blood gases from this morning showed a pH of 42 with a pCO2 of 47 and pO2 of 65.. Based on further drop in the pulse ox, increase the PEEP up to 12 L and it his FiO2 up to 70%. A repeat blood gases is pending and will need to fix her oxygenation prior to this patient going to the operating room. The patient is still on pressors. The patient has responded to Lasix 20 mg IV every 12 hours and the neck fluid balance is negative over the past 24 hours. She is producing adequate amount of urine output. She continues to have extensive edema in the upper and lower extremities. The left thumb is still necrotic. The patient is still requiring pressors and the dose being titrated to keep a mean artery pressure above 65. She is in the order of 5-6 g of norepinephrine infusion. The patient is on Diprivan which is running at 45 mg per KG per minute. She is also on insulin drip for blood sugar control. The wound VAC is still draining extensively, and order of probably 1 L on a 24-hour period. The patient is severely hypoproteinemic and hypoalbuminemic despite being on TPN for discharge and support. Antibiotic coverage remains unchanged. The patient remains on stress dose hydrocortisone. Objective - Vital Signs Vital signs: Vital Signs Temp 99.0 F 08/08/18 04:00 Pulse 114 H 08/08/18 09:00 Resp 21 08/08/18 09:00 BP 93/50 08/08/18 09:00 Pulse Ox 86 L 08/08/18 09:00 Intake & Output 08/07/18 08/08/18 08/08/18 18:59 06:59 18:59 Intake Total 9548.110 0923.9573 730.203 Output Total 3755 2305 685 Balance -2664.606 748.9885 45.203 Weight 87.1 kg 85.8 kg Intake: IV 772 1081 429 Ampicillin-Sulbactam 3 gm 200 200 200 In Sodium Chloride 0.9% 100 ml @ 200 mls/hr IVPB Q6HR JESSICA Rx#:[id number] Mvi, Adult No.4 with Vit 495 45 K 10 ml Trace (Conc-1Ml/ Dose) 1 ml Potassium Chloride 40 meq Potassium Phosphate 10 mmol In Amino Acid 5%-D15w+Lytes* E* 1,000 ml @ 45 mls/hr IV .Q23H JESSICA Rx#: [id number] Pressure bag 72 66 24 Sodium Chloride 0.45% 1, 300 220 60 000 ml @ 20 mls/hr IV . Q24H JESSICA Rx#:[id number] metroNIDAZOLE-NS PMX 500 200 100 100 mg In Saline 1 100ml.bag @ 100 mls/hr IVPB Q8HR JESSICA Rx#:[id number] Intake, IV Titration 081.269 8565.9573 301.203 Amount Heparin Sod,Pork in 0.45% 201.203 NaCl 25,000 unit In 0.45 % NaCl 1 250ml.bag @ 12 UNITS/KG/HR 10 mls/hr IV .Q24H JESSICA Rx#:[id number] Insulin Regular 100 unit 20.706 0.017 In Sodium Chloride 0.9% 100 ml @ Per Protocol IV .Q0M JESSICA Rx#:[id number] Mvi, Adult No.4 with Vit 1034.3333 K 10 ml Trace (Conc-1Ml/ Dose) 1 ml Potassium Chloride 40 meq Potassium Phosphate 10 mmol In Amino Acid 5%-D15w+Lytes* E* 1,000 ml @ 45 mls/hr IV .Q23H JESSICA Rx#: [id number] Norepinephrine 16 mg In 45.811 19.171 Sodium Chloride 0.9% 250 ml @ Titrate IV .Q0M JESSICA Rx#:[id number] Propofol 1,000 mg In 251.607 280.436 100 Empty Bag 1 bag @ Titrate IV .Q0M JESSICA Rx#: [id number] Output: Drainage 2250 1000 Medial Abdomen 2250 1000 Urine 1305 1005 685 Stool 200 300 Other: Voiding Method Indwelling Catheter Indwelling Catheter Indwelling Catheter ABP, PAP, CO, CI - Last Documented Arterial Blood Pressure 109/53 - Exam Gen. appearance the patient is intubated, comfortable likely distress the patient is sedated and the patient is 6 is with the mechanical ventilator. Orogastric and orotracheal tube are both in place. Head exam was generally normal. There was no scleral icterus or corneal arcus. Mucous membranes were moist. Neck was supple and without jugular venous distension, thyromegaly, or carotid bruits. Carotids were easily palpable bilaterally. There was no adenopathy. The patient has a triple lumen catheter in the left subclavian. The patient also has orogastric and orotracheal tube. Lungs are diminished bilaterally and there is some few basilar crackles heard in the mid and lower lung aguilera bilaterally. No wheezing. Cardiac exam revealed the PMI to be normally situated and sized. The rhythm was regular and no extrasystoles were noted during several minutes of auscultation. The first and second heart sounds were normal and physiologic splitting of the second heart sound was noted. There were no murmurs, rubs, clicks, or gallops. Abdomen exam is soft and the abdominal wound VAC is in place with serous drainage. There is evidence of necrosis of the subcutaneous tissue along the wound borders bilaterally. The patient has a functioning colostomy. There is minimal amount of output and the tissue still viable. Bowel sounds are hypoactive. Extremities are showing extensive edema in all 4 extremities pressure in the upper extremities bilaterally. Neurologic the patient is sedated, comfortable not in acute distress. Exertional skin shows that the skin is poorly perfused. There is some moderate amount of skin weeping and upper extremities bilaterally. There is a 1 VAC over the mid anterior abdominal wall. - Labs CBC & Chem 7: 08/08/18 04:00 08/08/18 04:00 Labs: Abnormal Lab Results - Last 24 Hours (Table) 08/07/18 08/07/18 08/07/18 Range/Units 12:04 14:06 16:14 WBC (3.8-10.6) k/uL RBC (3.80-5.40) m/uL Hgb (11.4-16.0) gm/dL Hct (34.0-46.0) % MCHC (31.0-37.0) g/dL RDW (11.5-15.5) % Plt Count (150-450) k/uL Neutrophils # (Manual) (1.3-7.7) k/uL Lymphocytes # (Manual) (1.0-4.8) k/uL Metamyelocytes # (Man) (0) k/uL Myelocytes # (Manual) (0) k/uL Nucleated RBCs (0-0) /100 WBC APTT (22.0-30.0) sec ABG pCO2 (35-45) mmHg ABG pO2 (83-108) mmHg ABG HCO3 (21-25) mmol/L ABG Total CO2 (19-24) mmol/L ABG O2 Saturation (94-97) % Chloride (98-107) mmol/L BUN (7-17) mg/dL Glucose (74-99) mg/dL POC Glucose (mg/dL) 145 H 135 H 117 H (75-99) mg/dL Calcium (8.4-10.2) mg/dL AST (14-36) U/L Alkaline Phosphatase (38-126) U/L Total Protein (6.3-8.2) g/dL Albumin (3.5-5.0) g/dL 08/07/18 08/07/18 08/07/18 Range/Units 18:10 20:30 22:01 WBC (3.8-10.6) k/uL RBC (3.80-5.40) m/uL Hgb (11.4-16.0) gm/dL Hct (34.0-46.0) % MCHC (31.0-37.0) g/dL RDW (11.5-15.5) % Plt Count (150-450) k/uL Neutrophils # (Manual) (1.3-7.7) k/uL Lymphocytes # (Manual) (1.0-4.8) k/uL Metamyelocytes # (Man) (0) k/uL Myelocytes # (Manual) (0) k/uL Nucleated RBCs (0-0) /100 WBC APTT (22.0-30.0) sec ABG pCO2 (35-45) mmHg ABG pO2 (83-108) mmHg ABG HCO3 (21-25) mmol/L ABG Total CO2 (19-24) mmol/L ABG O2 Saturation (94-97) % Chloride (98-107) mmol/L BUN (7-17) mg/dL Glucose (74-99) mg/dL POC Glucose (mg/dL) 109 H 117 H 132 H (75-99) mg/dL Calcium (8.4-10.2) mg/dL AST (14-36) U/L Alkaline Phosphatase (38-126) U/L Total Protein (6.3-8.2) g/dL Albumin (3.5-5.0) g/dL 08/07/18 08/08/18 08/08/18 Range/Units 23:50 02:15 04:00 WBC 13.7 H (3.8-10.6) k/uL RBC 2.69 L (3.80-5.40) m/uL Hgb 7.6 L (11.4-16.0) gm/dL Hct 24.7 L (34.0-46.0) % MCHC 30.7 L (31.0-37.0) g/dL RDW 15.8 H (11.5-15.5) % Plt Count 85 L (150-450) k/uL Neutrophils # (Manual) 12.60 H (1.3-7.7) k/uL Lymphocytes # (Manual) 0.69 L (1.0-4.8) k/uL Metamyelocytes # (Man) 0.27 H (0) k/uL Myelocytes # (Manual) 0.14 H (0) k/uL Nucleated RBCs 1 H (0-0) /100 WBC APTT (22.0-30.0) sec ABG pCO2 (35-45) mmHg ABG pO2 (83-108) mmHg ABG HCO3 (21-25) mmol/L ABG Total CO2 (19-24) mmol/L ABG O2 Saturation (94-97) % Chloride (98-107) mmol/L BUN (7-17) mg/dL Glucose (74-99) mg/dL POC Glucose (mg/dL) 143 H 158 H (75-99) mg/dL Calcium (8.4-10.2) mg/dL AST (14-36) U/L Alkaline Phosphatase (38-126) U/L Total Protein (6.3-8.2) g/dL Albumin (3.5-5.0) g/dL 08/08/18 08/08/18 08/08/18 Range/Units 04:00 04:00 04:03 WBC (3.8-10.6) k/uL RBC (3.80-5.40) m/uL Hgb (11.4-16.0) gm/dL Hct (34.0-46.0) % MCHC (31.0-37.0) g/dL RDW (11.5-15.5) % Plt Count (150-450) k/uL Neutrophils # (Manual) (1.3-7.7) k/uL Lymphocytes # (Manual) (1.0-4.8) k/uL Metamyelocytes # (Man) (0) k/uL Myelocytes # (Manual) (0) k/uL Nucleated RBCs (0-0) /100 WBC APTT 48.3 H (22.0-30.0) sec ABG pCO2 (35-45) mmHg ABG pO2 (83-108) mmHg ABG HCO3 (21-25) mmol/L ABG Total CO2 (19-24) mmol/L ABG O2 Saturation (94-97) % Chloride 108 H (98-107) mmol/L BUN 22 H (7-17) mg/dL Glucose 138 H (74-99) mg/dL POC Glucose (mg/dL) 142 H (75-99) mg/dL Calcium 6.8 L (8.4-10.2) mg/dL AST 75 H (14-36) U/L Alkaline Phosphatase 156 H (38-126) U/L Total Protein 3.4 L (6.3-8.2) g/dL Albumin 1.3 L (3.5-5.0) g/dL 08/08/18 08/08/18 08/08/18 Range/Units 05:02 06:24 09:03 WBC (3.8-10.6) k/uL RBC (3.80-5.40) m/uL Hgb (11.4-16.0) gm/dL Hct (34.0-46.0) % MCHC (31.0-37.0) g/dL RDW (11.5-15.5) % Plt Count (150-450) k/uL Neutrophils # (Manual) (1.3-7.7) k/uL Lymphocytes # (Manual) (1.0-4.8) k/uL Metamyelocytes # (Man) (0) k/uL Myelocytes # (Manual) (0) k/uL Nucleated RBCs (0-0) /100 WBC APTT (22.0-30.0) sec ABG pCO2 47 H (35-45) mmHg ABG pO2 65 L (83-108) mmHg ABG HCO3 31 H (21-25) mmol/L ABG Total CO2 32 H (19-24) mmol/L ABG O2 Saturation 92.7 L (94-97) % Chloride (98-107) mmol/L BUN (7-17) mg/dL Glucose (74-99) mg/dL POC Glucose (mg/dL) 137 H 125 H (75-99) mg/dL Calcium (8.4-10.2) mg/dL AST (14-36) U/L Alkaline Phosphatase (38-126) U/L Total Protein (6.3-8.2) g/dL Albumin (3.5-5.0) g/dL 08/08/18 08/08/18 Range/Units 10:00 10:24 WBC (3.8-10.6) k/uL RBC (3.80-5.40) m/uL Hgb (11.4-16.0) gm/dL Hct (34.0-46.0) % MCHC (31.0-37.0) g/dL RDW (11.5-15.5) % Plt Count (150-450) k/uL Neutrophils # (Manual) (1.3-7.7) k/uL Lymphocytes # (Manual) (1.0-4.8) k/uL Metamyelocytes # (Man) (0) k/uL Myelocytes # (Manual) (0) k/uL Nucleated RBCs (0-0) /100 WBC APTT (22.0-30.0) sec ABG pCO2 58 H (35-45) mmHg ABG pO2 77 L (83-108) mmHg ABG HCO3 32 H (21-25) mmol/L ABG Total CO2 33 H (19-24) mmol/L ABG O2 Saturation (94-97) % Chloride (98-107) mmol/L BUN (7-17) mg/dL Glucose (74-99) mg/dL POC Glucose (mg/dL) 128 H (75-99) mg/dL Calcium (8.4-10.2) mg/dL AST (14-36) U/L Alkaline Phosphatase (38-126) U/L Total Protein (6.3-8.2) g/dL Albumin (3.5-5.0) g/dL Assessment and Plan Plan: Assessment 1 complicated diverticular abscess with bowel perforation. The patient is also expiratory laparotomy, sigmoid colectomy and ostomy appendectomy. The patient is postop day #9 2 sepsis secondary to abdominal infection related to a complicated diverticular abscess. The patient has gram-negative/E. coli and Beta Strep and Anaerobes in the Intra-Abdominal Abscess and the Patient Is on a Broad-Spectrum Antibiotics Utilizing a Combination of Unasyn and Flagyl. The patient continues to have necrosis of the wound surface and the patient will be having another debridement procedure today and abdominal washout. 3 Shock Secondary to intra-abdominal sepsis and the patient is still requiring pressors. 4 extensive volume overload in addition to hypoproteinemia and hypoproteinemia contributing to the patient's third spacing an extensive upper and lower extremity edema 5 TPN for Nutritional Support 6 Open Wound with Necrosis of the Wound Surface, and the patient has a wound VAC in place 7 acute hypoxic respiratory failure secondary to ARDS investigation with abdominal sepsis. There is been some worsening in her oxygenation compared to yesterday secondary to ARDS. 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 Vascular surgery on the case and there is no significant progression and the thumb necrosis on today 's evaluation. Patient remains on IV heparin 9 severe hypoproteinemia and hypoproteinemia 10 chronic anemia, expected outcome of the above-mentioned comorbidities 11 lactic acidosis, improved 12 carotid artery insufficiency currently on IV hydrocortisone Plan The patient will be taken to the operating room for an abdominal washout and debridement. Continue TPN. Discussed the possibility of initiating the tube feeds and this will be constellation after the patient comes back from the operating room. Her colostomy site is viable and there is some liquidy material collecting in the back. Meanwhile, continue the same antibiotic coverage includes a combination of Unasyn and Flagyl. Continue diuretics. Appropriate vent adjustments were done to improve the patient's oxygenation. Increase the PEEP up to 12. It his FiO2 up to 70%. Condition is still very critical. Prognosis poor based on above-mentioned comorbidities. We'll continue to follow. Evaluation was done and more than 30 minutes. Time with Patient: Greater than 30
[2018-08-08] MEDS ORDERED: ROCURONIUM BROMIDE 10 MG/ML 10 ML VIAL IV ONE (13:10)
[2018-08-08] MEDS ORDERED: IV FLUID CONTINUATION 1,000 ML IV ONE (13:24)
[2018-08-08 15:06] LABS: Hemoglobin A1C 6.1 % (4.0-6.0)
[2018-08-08 15:34] LABS: Glucose,Whole Blood 135 mg/dL (75-99)
[2018-08-08] MEDS: NOREPINEPHRINE 16 MG in SODIUM CHLORIDE 0.9% 250 ML IV SCH (15:59)
[2018-08-08 17:54] LABS: Glucose,Whole Blood 115 mg/dL (75-99)
[2018-08-08] MEDS: PIPERACILLIN-TAZOBACTAM 3.375 GM in SODIUM CHLORIDE 0.9% 100 ML IVPB SCH (17:55)
--- NOTE | 2018-08-08 18:22 | P.PN ---
Subjective Progress Note Date: 08/08/18 (delayed charting patient seen at 0920) Principal diagnosis: abdominal pain Patient is a 58-year-old female with no significant past medical history o who presented to the emergency department at the recommendations of her PCP for dehydration, nausea, and vomiting. In the emergency department she underwent an extensive evaluation. Computed tomography scan of the abdomen showed diverticular abscess with partial bowel obstruction she was admitted for further management. Initial laboratory analysis showed a sodium of 132, carbon dioxide 21, and a negative urinalysis. She was started on IV fluids, antibiotics and was admitted. General surgery was consulted. Patient initially wanted conservative management did not want surgery. Interventional radiology was consulted and she underwent abscess ranges placement of percutaneous drain on 07/28/18. She was found to have an elevated PTT and hematology was consulted. They felt that this was likely due to poor nutritional intake and ordered additional vitamin K. Her PT INR normalized with additional vitamin K. She was seen by ID who discontinue meropenem and started her on Zosyn. She had initially been progressing well. Overnight on she developed increasing pain and nausea. She started requiring IV narcotics for treatment of her pain. She then became tachycardic. Morning blood work on 07/30 showed a depressed white blood cell count at 2.5, and carbon dioxide of 12. Stat CT with IV contrast as well as a stat lactic acid and a [address] abdomen and pelvis showed free air. Case discussed with Dr. Jacobson and patient was taken urgently to the operating room for ex-lap due to perforated viscus. During the procedure, the patient was noted to have fecal peritonitis and underwent a sigmoid colectomy with end colostomy. She was transferred to the ICU post-operatively and was started on IV pressors. The patient was extubated on 07/31/18. However, she continued to require Levophed. ID recommended the patient to be switched to Unasyn and Flagyl. A random cortisol level was drawn and was 22, for which patient was started on hydrocortisone for suspected adrenal insufficiency. On 08/02 the patient developed respiratory distress and was re-intubated. She was also noted to have L thumb discoloration with history of art line placement on that wrist. Vascular surgery was consulted and did not recommend urgent surgical intervention. Her pressors were able to taken off momentarily on 08/06 but required to be restarted on 08/07. She had a dusky appearance to the wound edges and was taken back to the OR on 08/09 and underwent small bowel ressection with abdominal wound debridement. Patient seen and examined at bedside. Sedated on vent. Nurse present. O2 on ABG decreased today. Pressor needs stable at 6 mcg/min. Objective - Vital Signs Vital signs: Vital Signs Temp 99.1 F 08/08/18 16:00 Pulse 123 H 08/08/18 18:00 Resp 22 08/08/18 18:00 BP 93/50 08/08/18 18:00 Pulse Ox 89 L 08/08/18 18:00 Intake & Output 08/07/18 08/08/18 08/08/18 18:59 06:59 18:59 Intake Total 7513.279 4440.9573 1136.515 Output Total 3755 2305 2115 Balance -2664.206 319.8173 -978.485 Weight 87.1 kg 85.8 kg Intake: IV 772 1081 835 Ampicillin-Sulbactam 3 gm 200 200 300 In Sodium Chloride 0.9% 100 ml @ 200 mls/hr IVPB Q6HR JESSICA Rx#:[id number] Mvi, Adult No.4 with Vit 495 45 K 10 ml Trace (Conc-1Ml/ Dose) 1 ml Potassium Chloride 40 meq Potassium Phosphate 10 mmol In Amino Acid 5%-D15w+Lytes* E* 1,000 ml @ 45 mls/hr IV .Q23H JESSICA Rx#: [id number] Pressure bag 72 66 60 Sodium Chloride 0.45% 1, 300 220 180 000 ml @ 20 mls/hr IV . Q24H JESSICA Rx#:[id number] metroNIDAZOLE-NS PMX 500 200 100 200 mg In Saline 1 100ml.bag @ 100 mls/hr IVPB Q8HR JESSICA Rx#:[id number] Intake, IV Titration 557.108 1228.9573 301.515 Amount Heparin Sod,Pork in 0.45% 201.203 NaCl 25,000 unit In 0.45 % NaCl 1 250ml.bag @ 12 UNITS/KG/HR 10 mls/hr IV .Q24H JESSICA Rx#:[id number] Insulin Regular 100 unit 20.706 0.017 In Sodium Chloride 0.9% 100 ml @ Per Protocol IV .Q0M JESSICA Rx#:[id number] Mvi, Adult No.4 with Vit 1034.3333 K 10 ml Trace (Conc-1Ml/ Dose) 1 ml Potassium Chloride 40 meq Potassium Phosphate 10 mmol In Amino Acid 5%-D15w+Lytes* E* 1,000 ml @ 45 mls/hr IV .Q23H JESSICA Rx#: [id number] Norepinephrine 16 mg In 45.811 19.171 0.312 Sodium Chloride 0.9% 250 ml @ Titrate IV .Q0M JESSICA Rx#:[id number] Propofol 1,000 mg In 251.607 280.436 100 Empty Bag 1 bag @ Titrate IV .Q0M JESSICA Rx#: [id number] Output: Drainage 2250 1000 680 Medial Abdomen 2250 1000 600 Right Abdomen 80 Urine 1305 1005 1185 Stool 200 300 200 Estimated Blood Loss 50 Other: Voiding Method Indwelling Catheter Indwelling Catheter Indwelling Catheter ABP, PAP, CO, CI - Last Documented Arterial Blood Pressure 127/66 - Exam General: ill appearing, sedated on vent, no distress, appears at stated age Derm: cool, dry, left thumb dusky no skin sloughing Head: atraumatic, normocephalic, symmetric Eyes: PERRL, no lid lag, anicteric sclera Mouth: no lip lesion, mucus membranes moist Cardiovascular: S1S2 tachy, no murmur, positive posterior tibial pulse bilateral , Lungs: course bs bilateral, no rhonchi, no rales , no accessory muscle use, on vent with ET tube in place Abdominal: soft, nontender to palpation through sedation, no guarding, no appreciable organomegaly, wound vac in place, urine clear Ext: no gross muscle atrophy, diffuse anasarca, no contractures Neuro: no withdrawal to pain but currently on sedation. Psych:sedated on vent - Labs CBC & Chem 7: 08/08/18 04:00 08/08/18 04:00 Labs: Abnormal Lab Results - Last 24 Hours (Table) 08/07/18 08/07/18 08/07/18 Range/Units 20:30 22:01 23:50 WBC (3.8-10.6) k/uL RBC (3.80-5.40) m/uL Hgb (11.4-16.0) gm/dL Hct (34.0-46.0) % MCHC (31.0-37.0) g/dL RDW (11.5-15.5) % Plt Count (150-450) k/uL Neutrophils # (Manual) (1.3-7.7) k/uL Lymphocytes # (Manual) (1.0-4.8) k/uL Metamyelocytes # (Man) (0) k/uL Myelocytes # (Manual) (0) k/uL Nucleated RBCs (0-0) /100 WBC APTT (22.0-30.0) sec ABG pCO2 (35-45) mmHg ABG pO2 (83-108) mmHg ABG HCO3 (21-25) mmol/L ABG Total CO2 (19-24) mmol/L ABG O2 Saturation (94-97) % Chloride (98-107) mmol/L BUN (7-17) mg/dL Glucose (74-99) mg/dL POC Glucose (mg/dL) 117 H 132 H 143 H (75-99) mg/dL Hemoglobin A1c (4.0-6.0) % Calcium (8.4-10.2) mg/dL AST (14-36) U/L Alkaline Phosphatase (38-126) U/L Total Protein (6.3-8.2) g/dL Albumin (3.5-5.0) g/dL 08/08/18 08/08/18 08/08/18 Range/Units 02:15 04:00 04:00 WBC 13.7 H (3.8-10.6) k/uL RBC 2.69 L (3.80-5.40) m/uL Hgb 7.6 L (11.4-16.0) gm/dL Hct 24.7 L (34.0-46.0) % MCHC 30.7 L (31.0-37.0) g/dL RDW 15.8 H (11.5-15.5) % Plt Count 85 L (150-450) k/uL Neutrophils # (Manual) 12.60 H (1.3-7.7) k/uL Lymphocytes # (Manual) 0.69 L (1.0-4.8) k/uL Metamyelocytes # (Man) 0.27 H (0) k/uL Myelocytes # (Manual) 0.14 H (0) k/uL Nucleated RBCs 1 H (0-0) /100 WBC APTT (22.0-30.0) sec ABG pCO2 (35-45) mmHg ABG pO2 (83-108) mmHg ABG HCO3 (21-25) mmol/L ABG Total CO2 (19-24) mmol/L ABG O2 Saturation (94-97) % Chloride (98-107) mmol/L BUN (7-17) mg/dL Glucose (74-99) mg/dL POC Glucose (mg/dL) 158 H (75-99) mg/dL Hemoglobin A1c 6.1 H (4.0-6.0) % Calcium (8.4-10.2) mg/dL AST (14-36) U/L Alkaline Phosphatase (38-126) U/L Total Protein (6.3-8.2) g/dL Albumin (3.5-5.0) g/dL 08/08/18 08/08/18 08/08/18 Range/Units 04:00 04:00 04:03 WBC (3.8-10.6) k/uL RBC (3.80-5.40) m/uL Hgb (11.4-16.0) gm/dL Hct (34.0-46.0) % MCHC (31.0-37.0) g/dL RDW (11.5-15.5) % Plt Count (150-450) k/uL Neutrophils # (Manual) (1.3-7.7) k/uL Lymphocytes # (Manual) (1.0-4.8) k/uL Metamyelocytes # (Man) (0) k/uL Myelocytes # (Manual) (0) k/uL Nucleated RBCs (0-0) /100 WBC APTT 48.3 H (22.0-30.0) sec ABG pCO2 (35-45) mmHg ABG pO2 (83-108) mmHg ABG HCO3 (21-25) mmol/L ABG Total CO2 (19-24) mmol/L ABG O2 Saturation (94-97) % Chloride 108 H (98-107) mmol/L BUN 22 H (7-17) mg/dL Glucose 138 H (74-99) mg/dL POC Glucose (mg/dL) 142 H (75-99) mg/dL Hemoglobin A1c (4.0-6.0) % Calcium 6.8 L (8.4-10.2) mg/dL AST 75 H (14-36) U/L Alkaline Phosphatase 156 H (38-126) U/L Total Protein 3.4 L (6.3-8.2) g/dL Albumin 1.3 L (3.5-5.0) g/dL 08/08/18 08/08/18 08/08/18 Range/Units 05:02 06:24 09:03 WBC (3.8-10.6) k/uL RBC (3.80-5.40) m/uL Hgb (11.4-16.0) gm/dL Hct (34.0-46.0) % MCHC (31.0-37.0) g/dL RDW (11.5-15.5) % Plt Count (150-450) k/uL Neutrophils # (Manual) (1.3-7.7) k/uL Lymphocytes # (Manual) (1.0-4.8) k/uL Metamyelocytes # (Man) (0) k/uL Myelocytes # (Manual) (0) k/uL Nucleated RBCs (0-0) /100 WBC APTT (22.0-30.0) sec ABG pCO2 47 H (35-45) mmHg ABG pO2 65 L (83-108) mmHg ABG HCO3 31 H (21-25) mmol/L ABG Total CO2 32 H (19-24) mmol/L ABG O2 Saturation 92.7 L (94-97) % Chloride (98-107) mmol/L BUN (7-17) mg/dL Glucose (74-99) mg/dL POC Glucose (mg/dL) 137 H 125 H (75-99) mg/dL Hemoglobin A1c (4.0-6.0) % Calcium (8.4-10.2) mg/dL AST (14-36) U/L Alkaline Phosphatase (38-126) U/L Total Protein (6.3-8.2) g/dL Albumin (3.5-5.0) g/dL 08/08/18 08/08/18 08/08/18 Range/Units 10:00 10:24 15:09 WBC (3.8-10.6) k/uL RBC (3.80-5.40) m/uL Hgb (11.4-16.0) gm/dL Hct (34.0-46.0) % MCHC (31.0-37.0) g/dL RDW (11.5-15.5) % Plt Count (150-450) k/uL Neutrophils # (Manual) (1.3-7.7) k/uL Lymphocytes # (Manual) (1.0-4.8) k/uL Metamyelocytes # (Man) (0) k/uL Myelocytes # (Manual) (0) k/uL Nucleated RBCs (0-0) /100 WBC APTT (22.0-30.0) sec ABG pCO2 58 H (35-45) mmHg ABG pO2 77 L (83-108) mmHg ABG HCO3 32 H (21-25) mmol/L ABG Total CO2 33 H (19-24) mmol/L ABG O2 Saturation (94-97) % Chloride (98-107) mmol/L BUN (7-17) mg/dL Glucose (74-99) mg/dL POC Glucose (mg/dL) 128 H 135 H (75-99) mg/dL Hemoglobin A1c (4.0-6.0) % Calcium (8.4-10.2) mg/dL AST (14-36) U/L Alkaline Phosphatase (38-126) U/L Total Protein (6.3-8.2) g/dL Albumin (3.5-5.0) g/dL 08/08/18 Range/Units 17:50 WBC (3.8-10.6) k/uL RBC (3.80-5.40) m/uL Hgb (11.4-16.0) gm/dL Hct (34.0-46.0) % MCHC (31.0-37.0) g/dL RDW (11.5-15.5) % Plt Count (150-450) k/uL Neutrophils # (Manual) (1.3-7.7) k/uL Lymphocytes # (Manual) (1.0-4.8) k/uL Metamyelocytes # (Man) (0) k/uL Myelocytes # (Manual) (0) k/uL Nucleated RBCs (0-0) /100 WBC APTT (22.0-30.0) sec ABG pCO2 (35-45) mmHg ABG pO2 (83-108) mmHg ABG HCO3 (21-25) mmol/L ABG Total CO2 (19-24) mmol/L ABG O2 Saturation (94-97) % Chloride (98-107) mmol/L BUN (7-17) mg/dL Glucose (74-99) mg/dL POC Glucose (mg/dL) 115 H (75-99) mg/dL Hemoglobin A1c (4.0-6.0) % Calcium (8.4-10.2) mg/dL AST (14-36) U/L Alkaline Phosphatase (38-126) U/L Total Protein (6.3-8.2) g/dL Albumin (3.5-5.0) g/dL Assessment and Plan Assessment: Diverticulitis with abscess and bowel perforation with septic shock s/p sigmoid colectomy, small bowel resection X 2 and appendectomy and debridement of wound necrosis - NGT - wean levophed as able - Surgery recs - ID recs: polymicrobial infection, zosyn and flagyl Relative adrenal insufficency - stress dose steroids, wean in AM if levophed stable or decreased Hyperglycemia due to steroids and TPN - prediabetes - A1C 6.1, diet modification on discharge - follow BS and continue insulin gtt Acute hypoxic respiratory failure due to fluid overload - vent management per ICU team, PEEP increased - CXR reviewed appear fluid overloaded on lasix BID - Consider trach in the next few days if no improvement Anemia, dilutational due to prolonged ICU stay - stable - follow CBC - transfuse for HgB <6 Post-op ileus - on TPN - NGT to suction - general surgery recs Severe Protein calorie malnutrition - on TPN Left thumb ischemia - vascular surgery recs appreciated, conservative management at this time. - on heparin gtt Thromboctypenia, reactive to sepsis, improving - follow CBC - HIT AB negative - Oncology recs appreaciated AST elevation - monitor on TPN and ABX Hyponatremia, hypokalemia, hypophosphatemia, and hypomagnesemia resolved Coagulopathy, resolved Anion Gap metabolic acidosis, resolved lactic acidosis, improved DVT prophylaxis: heparin gtt Anticipated discharge: undetermined Place:[facility] A total of 45 minutes, complex care of this patient.
[2018-08-08 19:55] LABS: ABG HCO3 29 mmol/L (21-25); ABG Oxygen Saturation 89.1 % (94-97); ABG PCO2 59 mmHg (35-45); ABG PH 7.31 (7.35-7.45); ABG PO2 61 mmHg (83-108); ABG TCO2 31 mmol/L (19-24)
[2018-08-08] MEDS: MVI, ADULT NO.4 WITH VIT K 10 ML, TRACE (CONC-1ML/DOSE) 1 ML, POTASSIUM CHLORIDE 40 MEQ... IV SCH ×5 (20:24)
[2018-08-08 20:31] LABS: Glucose,Whole Blood 132 mg/dL (75-99)
[2018-08-08 20:48] LABS: Anisocytosis Slight; HCT 29.4 % (34.0-46.0); Hypochromasia Marked; MCH 29.1 pg (25.0-35.0); MCHC 31.1 g/dL (31.0-37.0); MCV 93.7 fL (80.0-100.0); Mean Platelet Volume 10.8; Platelet Count 109 k/uL (150-450); RBC 3.14 m/uL (3.80-5.40); RDW 16.3 % (11.5-15.5)
[2018-08-08 20:50] LABS: HGB 9.1 gm/dL (11.4-16.0)
[2018-08-08 21:18] LABS: Band Neutrophils % 29 %; Lymphocytes # (M) 1.79 k/uL (1.0-4.8); Metamyelocytes # (M) 1.07 k/uL (0); Metamyelocytes % 6 %; Monocytes # (M) 0.54 k/uL (0-1.0); Neutrophils % (M) 53 %; Nucleated Red Blood Cells 4 /100 WBC (0-0); Total Cells Counted 200; WBC 17.9 k/uL (3.8-10.6)
[2018-08-08 21:21] LABS: Large Platelets Present; Polychromasia Present
[2018-08-08 22:02] LABS: Glucose,Whole Blood 125 mg/dL (75-99)
--- NOTE | 2018-08-08 23:34 | PN ---
PROGRESS NOTE DATE OF SERVICE: 08/08/2018. REASON FOR FOLLOWUP: Abdominal sepsis. INTERVAL HISTORY: The patient was taken back to the OR. The patient noticed to have a perforated small bowel. The patient is status post resection of the portion of the small bowel and diverting ileostomy. The patient subsequently has been brought back to the ICU on the vent. Currently at the time of my evaluation, the patient was on 70% FIO2 and requiring 6 amara of Levophed. has been present at bedside. Questions were answered. PHYSICAL EXAMINATION: Blood pressure is 93/59 with a pulse of with temperature of 98. She is 90% on 70% FiO2. General description is a middle aged female intubated on the vent. HEENT: Shows pallor. No scleral icterus. The patient is orally intubated. LUNGS: Unlabored breathing with decreased breath sounds in the bases. Heart S1, S2. Regular rate and rhythm. ABDOMEN: Soft. The incision is currently dressed. No output in the ostomy or colostomy bag. [place]S: [place] [address] after surgery, hemoglobin of 9.1. BUN of 22, creatinine 0.57. DIAGNOSTIC IMPRESSION AND PLAN: Patient with abdominal abscess in this patient who did have initial sigmoid diverticulitis with diverting colostomy. Subsequently, the perforation again and has to be taken back to the OR. The patient overall antibiotics will be broadened to addition of Zosyn. Continue Levaquin. Discontinue Unasyn and we will monitor her clinical course closely. present at bedside. His questions were answered. MMODL / IJN: [id number] /
[2018-08-09] MEDS: PIPERACILLIN-TAZOBACTAM 3.375 GM in SODIUM CHLORIDE 0.9% 100 ML IVPB SCH ×3 (00:42→16:40)
[2018-08-09] MEDS: HYDROCORTISONE SUCCINATE 100 MG/2 ML VIAL IV SCH ×3 (00:42→16:40)
[2018-08-09 00:43] LABS: Glucose,Whole Blood 128 mg/dL (75-99)
[2018-08-09] MEDS: METOCLOPRAMIDE 5 MG/ML 2 ML VIAL IVP SCH ×4 (00:43→18:24)
[2018-08-09] MEDS: metroNIDAZOLE-NS PMX 500 MG in SALINE 1 100ML.BAG IVPB SCH ×2 (00:43→10:05)
[2018-08-09] MEDS: PROPOFOL 1,000 MG in EMPTY BAG 1 BAG IV SCH ×4 (00:43→16:34)
[2018-08-09] MEDS: SODIUM CHLORIDE 0.45% 1,000 ML IV SCH ×2 (00:48→20:53)
[2018-08-09] MEDS: HYDROmorphone 0.5 MG/0.5 ML SYRINGE IVP PRN ×2 (00:52→06:04)
[2018-08-09 02:30] LABS: Glucose,Whole Blood 143 mg/dL (75-99)
[2018-08-09 04:15] LABS: Glucose,Whole Blood 100 mg/dL (75-99)
[2018-08-09 04:32] LABS: ABG HCO3 30 mmol/L (21-25); ABG Oxygen Saturation 90.4 % (94-97); ABG PCO2 60 mmHg (35-45); ABG PO2 64 mmHg (83-108); ABG TCO2 31 mmol/L (19-24)
[2018-08-09 04:34] LABS: Ionized Calcium 4.6 mg/dL (4.5-5.3)
[2018-08-09 04:40] LABS: Partial Thromboplastin Time 29.3 sec (22.0-30.0); Prothrombin Time 10.7 sec (9.0-12.0)
[2018-08-09 04:44] LABS: ALT 91 U/L (9-52); AST 272 U/L (14-36); Albumin 1.5 g/dL (3.5-5.0); Alkaline Phosphatase 160 U/L (38-126); Anion Gap 4 mmol/L; Blood Urea Nitrogen 30 mg/dL (7-17); Calcium 6.9 mg/dL (8.4-10.2); Carbon Dioxide 29 mmol/L (22-30); Chloride 109 mmol/L (98-107); Glucose 127 mg/dL (74-99); Magnesium 2.2 mg/dL (1.6-2.3); Phosphorus 5.3 mg/dL (2.5-4.5); Potassium 4.8 mmol/L (3.5-5.1); Sodium 142 mmol/L (137-145); Total Bilirubin 0.4 mg/dL (0.2-1.3); Total Protein 3.6 g/dL (6.3-8.2)
[2018-08-09 05:35] LABS: Anisocytosis Slight; HCT 29.6 % (34.0-46.0); HGB 9.2 gm/dL (11.4-16.0); Hypochromasia Marked; MCH 29.2 pg (25.0-35.0); MCHC 30.9 g/dL (31.0-37.0); MCV 94.4 fL (80.0-100.0); Platelet Count 125 k/uL (150-450); RBC 3.13 m/uL (3.80-5.40); RDW 16.2 % (11.5-15.5)
--- NOTE | 2018-08-09 05:55 | OP ---
OPERATIVE REPORT DATE OF SURGERY: 08/08/2018 PROCEDURE: 1. Exploratory laparotomy, reopening of recent laparotomy. 2. Small-bowel resection with ileostomy. 3. Drainage of intraperitoneal localized abscess near previous small bowel anastomosis. PREOPERATIVE DIAGNOSIS: Wound infection. POSTOPERATIVE DIAGNOSES: 1. Wound dehiscence. 2. Small bowel anastomotic failure. SURGEON: Rohit Jacobson MD. CIVIL SERVICE WORKER: None. ANESTHESIA: General endotracheal tube anesthesia. ESTIMATED BLOOD LOSS: 40 mL. PROCEDURE: Patient was placed on the operating room table in the supine position. Her wound VAC has been removed. The abdomen was prepped and draped in usual sterile fashion. The patient's wound was examined. There was some minimal superficial ischemic fat in the wound. The wound was probed and at the superior portion of the wound there appeared to be a small area of fascial dehiscence. The suction veneer sheet repairer was placed in this area. At this point, it was decided to open the wound. The fascial sutures were cut. There was almost no wound healing seen. The fascia was opened with just some blunt finger dissection. In the pelvis, the bowel was examined. There was a previous small bowel anastomosis. This appeared to have some bilious fluid around it. The small bowel anastomosis was inspected and there appeared to be very poor tissue healing and with some gentle finger traction there appeared to be disruption of the small bowel anastomosis. At this point, it was decided to perform a limited small bowel resection. The patient's bowel did not look healthy enough for an anastomosis. The ileum was transected proximally distally to the area of the anastomosis and then using the EnSeal device, the mesentery of the bowel was divided. The specimen was removed. There was evidence of some bilious fluid around this anastomosis. This was irrigated and removed as well. At this point, the abdomen was irrigated with 6 L of normal saline. The remaining bowel appeared viable. The ileostomy was brought up in the right upper quadrant. The fascia was closed with looped #1 PDS suture. The skin was packed open. A wet-to-dry Kerlix dressing was placed in the abdominal wound. The patient tolerated the procedure well. She was sent back to the ICU in critical condition. MMODL / IJN: [id number] /
[2018-08-09 06:22] LABS: Glucose,Whole Blood 129 mg/dL (75-99)
--- NOTE | 2018-08-09 07:15 | XR ---
EXAMINATION TYPE: XR chest 1V portable DATE OF EXAM: 08/09/2018 COMPARISON: 08/08/2018 HISTORY: SOB, Follow Up FINDINGS: Indwelling tubes and catheters are unchanged. Perihilar and basilar airspace infiltrates persist essentially unchanged. Suspect small effusions. Stable appearance of the cardio-mediastinal structures at this time. Pleural effusion unchanged. IMPRESSION: 1. Stable portable chest. Clinical correlation and follow up until resolution is recommended.
[2018-08-09] MEDS: IPRATROPIUM-ALBUTEROL 3 ML NEB INHALATION SCH ×4 (07:36→19:35)
[2018-08-09 09:47] LABS: Band Neutrophils % 54 %; Metamyelocytes % 3 %; Myelocytes % 2 %; Neutrophils % (M) 31 %; Nucleated Red Blood Cells 8 /100 WBC (0-0); Total Cells Counted 200
[2018-08-09 09:48] LABS: Basophilic Stippling Present; Eosinophils # (M) 0.18 k/uL (0-0.7); Lymphocytes # (M) 1.45 k/uL (1.0-4.8); Metamyelocytes # (M) 0.54 k/uL (0); Monocytes # (M) 0.54 k/uL (0-1.0); Myelocytes # (M) 0.36 k/uL (0); Polychromasia Present; WBC 18.1 k/uL (3.8-10.6)
[2018-08-09 09:50] LABS: Poikilocytosis (M) Present
[2018-08-09 09:51] LABS: Toxic Granulation Present
[2018-08-09] MEDS: CHLORHEXIDINE GLUCONATE 15 ML CUP MUCOUS MEM SCH ×2 (10:06→20:48)
[2018-08-09] MEDS: PANTOPRAZOLE 40 MG/10 ML VIAL IVP SCH (10:08)
[2018-08-09 10:51] LABS: ABG Base Excess 3.2 mmol/L; ABG HCO3 30 mmol/L (21-25); ABG Oxygen Saturation 89.5 % (94-97); ABG PCO2 63 mmHg (35-45); ABG PH 7.29 (7.35-7.45); ABG PO2 60 mmHg (83-108); ABG TCO2 32 mmol/L (19-24)
[2018-08-09 11:41] LABS: Glucose,Whole Blood 134 mg/dL (75-99)
[2018-08-09 12:14] LABS: ABG Base Excess 3.6 mmol/L; ABG HCO3 30 mmol/L (21-25); ABG PCO2 58 mmHg (35-45); ABG PH 7.32 (7.35-7.45); ABG TCO2 31 mmol/L (19-24)
[2018-08-09 12:14] LABS: Glucose,Whole Blood 124 mg/dL (75-99)
[2018-08-09 12:17] LABS: ABG Oxygen Saturation 90.4 % (94-97); ABG PO2 59 mmHg (83-108)
--- NOTE | 2018-08-09 14:41 | P.PN ---
Subjective Progress Note Date: 08/09/18 Principal diagnosis: abdominal pain Patient is a 58-year-old female with no significant past medical history o who presented to the emergency department at the recommendations of her PCP for dehydration, nausea, and vomiting. In the emergency department she underwent an extensive evaluation. Computed tomography scan of the abdomen showed diverticular abscess with partial bowel obstruction she was admitted for further management. Initial laboratory analysis showed a sodium of 132, carbon dioxide 21, and a negative urinalysis. She was started on IV fluids, antibiotics and was admitted. General surgery was consulted. Patient initially wanted conservative management did not want surgery. Interventional radiology was consulted and she underwent abscess ranges placement of percutaneous drain on 07/28/18. She was found to have an elevated PTT and hematology was consulted. They felt that this was likely due to poor nutritional intake and ordered additional vitamin K. Her PT INR normalized with additional vitamin K. She was seen by ID who discontinue meropenem and started her on Zosyn. She had initially been progressing well. Overnight on she developed increasing pain and nausea. She started requiring IV narcotics for treatment of her pain. She then became tachycardic. Morning blood work on 07/30 showed a depressed white blood cell count at 2.5, and carbon dioxide of 12. Stat CT with IV contrast as well as a stat lactic acid and a [address] abdomen and pelvis showed free air. Case discussed with Dr. Jacobson and patient was taken urgently to the operating room for ex-lap due to perforated viscus. During the procedure, the patient was noted to have fecal peritonitis and underwent a sigmoid colectomy with end colostomy. She was transferred to the ICU post-operatively and was started on IV pressors. The patient was extubated on 07/31/18. However, she continued to require Levophed. ID recommended the patient to be switched to Unasyn and Flagyl. A random cortisol level was drawn and was 22, for which patient was started on hydrocortisone for suspected adrenal insufficiency. On 08/02 the patient developed respiratory distress and was re-intubated. She was also noted to have L thumb discoloration with history of art line placement on that wrist. Vascular surgery was consulted and did not recommend urgent surgical intervention. Her pressors were able to taken off momentarily on 08/06 but required to be restarted on 2/4. She had a dusky appearance to the wound edges and was taken back to the OR on 08/09 and underwent small bowel resection with abdominal wound debridement. Patient seen and examined at bedside. Sedated on vent. Nurse present. Pressors needs increased overnight, PEEP and FiO2 needs increased. Increasing drainage out of wound which is now open and wound vac removed. Patient becoming more anasaric Objective - Vital Signs Vital signs: Vital Signs Temp 98.8 F 08/09/18 04:00 Pulse 114 H 08/09/18 07:52 Resp 22 08/09/18 07:00 BP 93/50 08/08/18 19:00 Pulse Ox 90 L 08/09/18 07:00 Intake & Output 08/08/18 08/09/18 08/09/18 18:59 06:59 18:59 Intake Total 8002.137 4750.4993 Output Total 2115 875 Balance -442.879 2786.4993 Weight 80.6 kg Intake: IV 835 852 Ampicillin-Sulbactam 3 gm 300 In Sodium Chloride 0.9% 100 ml @ 200 mls/hr IVPB Q6HR JESSICA Rx#:[id number] Mvi, Adult No.4 with Vit 45 540 K 10 ml Trace (Conc-1Ml/ Dose) 1 ml Potassium Chloride 40 meq Potassium Phosphate 10 mmol In Amino Acid 5%-D15w+Lytes* E* 1,000 ml @ 45 mls/hr IV .Q23H JESSICA Rx#: [id number] Pressure bag 60 72 Sodium Chloride 0.45% 1, 180 240 000 ml @ 20 mls/hr IV . Q24H JESSICA Rx#:[id number] metroNIDAZOLE-NS PMX 500 200 mg In Saline 1 100ml.bag @ 100 mls/hr IVPB Q8HR JESSICA Rx#:[id number] Intake, IV Titration 648.313 4516.4993 Amount Heparin Sod,Pork in 0.45% 201.203 NaCl 25,000 unit In 0.45 % NaCl 1 250ml.bag @ 12 UNITS/KG/HR 10 mls/hr IV .Q24H JESSICA Rx#:[id number] Insulin Regular 100 unit 27.624 In Sodium Chloride 0.9% 100 ml @ Per Protocol IV .Q0M JESSICA Rx#:[id number] Mvi, Adult No.4 with Vit 1034.3333 K 10 ml Trace (Conc-1Ml/ Dose) 1 ml Potassium Chloride 40 meq Potassium Phosphate 10 mmol In Amino Acid 5%-D15w+Lytes* E* 1,000 ml @ 45 mls/hr IV .Q23H JESSICA Rx#: [id number] Norepinephrine 16 mg In 0.312 45.994 Sodium Chloride 0.9% 250 ml @ Titrate IV .Q0M JESSICA Rx#:[id number] Propofol 1,000 mg In 100 85.548 Empty Bag 1 bag @ Titrate IV .Q0M JESSICA Rx#: [id number] Output: Drainage 680 160 Medial Abdomen 600 Right Abdomen 80 160 Urine 1185 715 Stool 200 Estimated Blood Loss 50 Other: Voiding Method Indwelling Catheter Indwelling Catheter ABP, PAP, CO, CI - Last Documented Arterial Blood Pressure 101/52 - Exam General: ill appearing, sedated on vent, mod distress, appears at stated age Derm: cool, dry, left thumb dusky no skin sloughing Head: atraumatic, normocephalic, symmetric Eyes: PERRL, no lid lag, anicteric sclera Mouth: no lip lesion, mucus membranes moist Cardiovascular: S1S2 tachy, no murmur, positive posterior tibial pulse bilateral , Lungs: course bs bilateral, no accessory muscle use, on vent with ET tube in place Abdominal: soft, nontender to palpation through sedation, no guarding, no appreciable organomegaly, dressing with moderate soak through, + ostomy X 2. Ext: no gross muscle atrophy, diffuse anasarca now developing blisters, no contractures Neuro: no withdrawal to pain but currently on sedation. Psych:sedated on vent - Labs CBC & Chem 7: 08/09/18 04:00 08/09/18 04:00 Labs: Abnormal Lab Results - Last 24 Hours (Table) 08/08/18 08/08/18 08/08/18 Range/Units 04:00 09:03 10:00 WBC (3.8-10.6) k/uL RBC (3.80-5.40) m/uL Hgb (11.4-16.0) gm/dL Hct (34.0-46.0) % MCHC (31.0-37.0) g/dL RDW (11.5-15.5) % Plt Count (150-450) k/uL Neutrophils # (Manual) (1.3-7.7) k/uL Metamyelocytes # (Man) (0) k/uL Nucleated RBCs (0-0) /100 WBC ABG pH (7.35-7.45) ABG pCO2 58 H (35-45) mmHg ABG pO2 77 L (83-108) mmHg ABG HCO3 32 H (21-25) mmol/L ABG Total CO2 33 H (19-24) mmol/L ABG O2 Saturation (94-97) % ABG Lactic Acid (0.5-1.6) mmol/L Chloride (98-107) mmol/L BUN (7-17) mg/dL Glucose (74-99) mg/dL POC Glucose (mg/dL) 125 H (75-99) mg/dL Hemoglobin A1c 6.1 H (4.0-6.0) % Calcium (8.4-10.2) mg/dL Phosphorus (2.5-4.5) mg/dL AST (14-36) U/L ALT (9-52) U/L Alkaline Phosphatase (38-126) U/L Total Protein (6.3-8.2) g/dL Albumin (3.5-5.0) g/dL 08/08/18 08/08/18 08/08/18 Range/Units 10:24 15:09 17:50 WBC (3.8-10.6) k/uL RBC (3.80-5.40) m/uL Hgb (11.4-16.0) gm/dL Hct (34.0-46.0) % MCHC (31.0-37.0) g/dL RDW (11.5-15.5) % Plt Count (150-450) k/uL Neutrophils # (Manual) (1.3-7.7) k/uL Metamyelocytes # (Man) (0) k/uL Nucleated RBCs (0-0) /100 WBC ABG pH (7.35-7.45) ABG pCO2 (35-45) mmHg ABG pO2 (83-108) mmHg ABG HCO3 (21-25) mmol/L ABG Total CO2 (19-24) mmol/L ABG O2 Saturation (94-97) % ABG Lactic Acid (0.5-1.6) mmol/L Chloride (98-107) mmol/L BUN (7-17) mg/dL Glucose (74-99) mg/dL POC Glucose (mg/dL) 128 H 135 H 115 H (75-99) mg/dL Hemoglobin A1c (4.0-6.0) % Calcium (8.4-10.2) mg/dL Phosphorus (2.5-4.5) mg/dL AST (14-36) U/L ALT (9-52) U/L Alkaline Phosphatase (38-126) U/L Total Protein (6.3-8.2) g/dL Albumin (3.5-5.0) g/dL 08/08/18 08/08/18 08/08/18 Range/Units 19:10 19:10 19:50 WBC 17.9 H (3.8-10.6) k/uL RBC 3.14 L (3.80-5.40) m/uL Hgb 9.1 L D (11.4-16.0) gm/dL Hct 29.4 L (34.0-46.0) % MCHC (31.0-37.0) g/dL RDW 16.3 H (11.5-15.5) % Plt Count 109 L (150-450) k/uL Neutrophils # (Manual) 14.60 H (1.3-7.7) k/uL Metamyelocytes # (Man) 1.07 H (0) k/uL Nucleated RBCs 4 H (0-0) /100 WBC ABG pH 7.31 L (7.35-7.45) ABG pCO2 59 H (35-45) mmHg ABG pO2 61 L (83-108) mmHg ABG HCO3 29 H (21-25) mmol/L ABG Total CO2 31 H (19-24) mmol/L ABG O2 Saturation 89.1 L (94-97) % ABG Lactic Acid 2.2 H* (0.5-1.6) mmol/L Chloride (98-107) mmol/L BUN (7-17) mg/dL Glucose (74-99) mg/dL POC Glucose (mg/dL) (75-99) mg/dL Hemoglobin A1c (4.0-6.0) % Calcium (8.4-10.2) mg/dL Phosphorus (2.5-4.5) mg/dL AST (14-36) U/L ALT (9-52) U/L Alkaline Phosphatase (38-126) U/L Total Protein (6.3-8.2) g/dL Albumin (3.5-5.0) g/dL 08/08/18 08/08/18 08/09/18 Range/Units 20:28 22:00 00:39 WBC (3.8-10.6) k/uL RBC (3.80-5.40) m/uL Hgb (11.4-16.0) gm/dL Hct (34.0-46.0) % MCHC (31.0-37.0) g/dL RDW (11.5-15.5) % Plt Count (150-450) k/uL Neutrophils # (Manual) (1.3-7.7) k/uL Metamyelocytes # (Man) (0) k/uL Nucleated RBCs (0-0) /100 WBC ABG pH (7.35-7.45) ABG pCO2 (35-45) mmHg ABG pO2 (83-108) mmHg ABG HCO3 (21-25) mmol/L ABG Total CO2 (19-24) mmol/L ABG O2 Saturation (94-97) % ABG Lactic Acid (0.5-1.6) mmol/L Chloride (98-107) mmol/L BUN (7-17) mg/dL Glucose (74-99) mg/dL POC Glucose (mg/dL) 132 H 125 H 128 H (75-99) mg/dL Hemoglobin A1c (4.0-6.0) % Calcium (8.4-10.2) mg/dL Phosphorus (2.5-4.5) mg/dL AST (14-36) U/L ALT (9-52) U/L Alkaline Phosphatase (38-126) U/L Total Protein (6.3-8.2) g/dL Albumin (3.5-5.0) g/dL 08/09/18 08/09/18 08/09/18 Range/Units 02:16 04:00 04:00 WBC 19.6 H (3.8-10.6) k/uL RBC 3.13 L (3.80-5.40) m/uL Hgb 9.2 L (11.4-16.0) gm/dL Hct 29.6 L (34.0-46.0) % MCHC 30.9 L (31.0-37.0) g/dL RDW 16.2 H (11.5-15.5) % Plt Count 125 L (150-450) k/uL Neutrophils # (Manual) (1.3-7.7) k/uL Metamyelocytes # (Man) (0) k/uL Nucleated RBCs (0-0) /100 WBC ABG pH (7.35-7.45) ABG pCO2 (35-45) mmHg ABG pO2 (83-108) mmHg ABG HCO3 (21-25) mmol/L ABG Total CO2 (19-24) mmol/L ABG O2 Saturation (94-97) % ABG Lactic Acid (0.5-1.6) mmol/L Chloride 109 H (98-107) mmol/L BUN 30 H (7-17) mg/dL Glucose 127 H (74-99) mg/dL POC Glucose (mg/dL) 143 H (75-99) mg/dL Hemoglobin A1c (4.0-6.0) % Calcium 6.9 L (8.4-10.2) mg/dL Phosphorus 5.3 H (2.5-4.5) mg/dL AST 272 H (14-36) U/L ALT 91 H (9-52) U/L Alkaline Phosphatase 160 H (38-126) U/L Total Protein 3.6 L (6.3-8.2) g/dL Albumin 1.5 L (3.5-5.0) g/dL 08/09/18 08/09/18 08/09/18 Range/Units 04:00 04:01 04:28 WBC (3.8-10.6) k/uL RBC (3.80-5.40) m/uL Hgb (11.4-16.0) gm/dL Hct (34.0-46.0) % MCHC (31.0-37.0) g/dL RDW (11.5-15.5) % Plt Count (150-450) k/uL Neutrophils # (Manual) (1.3-7.7) k/uL Metamyelocytes # (Man) (0) k/uL Nucleated RBCs (0-0) /100 WBC ABG pH 7.30 L (7.35-7.45) ABG pCO2 60 H (35-45) mmHg ABG pO2 64 L (83-108) mmHg ABG HCO3 30 H (21-25) mmol/L ABG Total CO2 31 H (19-24) mmol/L ABG O2 Saturation 90.4 L (94-97) % ABG Lactic Acid 2.3 H* (0.5-1.6) mmol/L Chloride (98-107) mmol/L BUN (7-17) mg/dL Glucose (74-99) mg/dL POC Glucose (mg/dL) 100 H (75-99) mg/dL Hemoglobin A1c (4.0-6.0) % Calcium (8.4-10.2) mg/dL Phosphorus (2.5-4.5) mg/dL AST (14-36) U/L ALT (9-52) U/L Alkaline Phosphatase (38-126) U/L Total Protein (6.3-8.2) g/dL Albumin (3.5-5.0) g/dL 08/09/18 Range/Units 05:55 WBC (3.8-10.6) k/uL RBC (3.80-5.40) m/uL Hgb (11.4-16.0) gm/dL Hct (34.0-46.0) % MCHC (31.0-37.0) g/dL RDW (11.5-15.5) % Plt Count (150-450) k/uL Neutrophils # (Manual) (1.3-7.7) k/uL Metamyelocytes # (Man) (0) k/uL Nucleated RBCs (0-0) /100 WBC ABG pH (7.35-7.45) ABG pCO2 (35-45) mmHg ABG pO2 (83-108) mmHg ABG HCO3 (21-25) mmol/L ABG Total CO2 (19-24) mmol/L ABG O2 Saturation (94-97) % ABG Lactic Acid (0.5-1.6) mmol/L Chloride (98-107) mmol/L BUN (7-17) mg/dL Glucose (74-99) mg/dL POC Glucose (mg/dL) 129 H (75-99) mg/dL Hemoglobin A1c (4.0-6.0) % Calcium (8.4-10.2) mg/dL Phosphorus (2.5-4.5) mg/dL AST (14-36) U/L ALT (9-52) U/L Alkaline Phosphatase (38-126) U/L Total Protein (6.3-8.2) g/dL Albumin (3.5-5.0) g/dL Assessment and Plan Assessment: Diverticulitis with abscess and bowel perforation with septic shock s/p sigmoid colectomy, small bowel resection X 2 and appendectomy and debridement of wound necrosis - additional intraabdominal abscess - wean levophed as able - Surgery recs - ID recs: polymicrobial infection, zosyn and flagyl, ? need for gram + coverage with worsening CXR Transaminitis - likely due to TPN and hypoperfusion - follow liver enzymes ARDS - increase lasix to 40 mg q8 hours, if response suboptimal added albumin - treatment of infections - PEEP increased, low tidal volume - critical care recs Anemia, dilutational due to prolonged ICU stay - stable - follow CBC - transfuse for HgB <6 Relative adrenal insufficiency - stress dose steroids, wean per pulm/cc recs Hyperglycemia due to steroids and TPN - prediabetes - A1C 6.1, diet modification on discharge - follow BS and continue insulin gtt Acute hypoxic respiratory failure due ARDS - vent management per ICU team - CXR reviewed appear fluid overloaded on lasix BID - Consider trach in the next few days if no improvement and patient stable Post-op ileus - on TPN - NGT to suction - general surgery recs Severe Protein calorie malnutrition - on TPN Left thumb ischemia - vascular surgery recs appreciated, conservative management at this time. - on heparin gtt Thromboctypenia, reactive to sepsis, improving - follow CBC - HIT AB negative - Oncology recs appreciated AST elevation - monitor on TPN and ABX Hyponatremia, hypokalemia, hypophosphatemia, and hypomagnesemia resolved Coagulopathy, resolved Anion Gap metabolic acidosis, resolved lactic acidosis, improved DVT prophylaxis: heparin gtt Anticipated discharge: undetermined Place:[facility] A total of 45 minutes, complex care of this patient.
[2018-08-09] MEDS ORDERED: FUROSEMIDE 10 MG/ML 4 ML VIAL IV SCH (16:00)
[2018-08-09 16:15] LABS: Glucose,Whole Blood 120 mg/dL (75-99)
[2018-08-09 16:26] LABS: ABG HCO3 29 mmol/L (21-25); ABG PCO2 52 mmHg (35-45); ABG PH 7.35 (7.35-7.45); ABG TCO2 30 mmol/L (19-24)
[2018-08-09] MEDS ORDERED: SODIUM CHLORIDE 0.9% 2,000 ML IV ONE (16:26)
[2018-08-09 16:29] LABS: ABG PO2 57 mmHg (83-108)
[2018-08-09] MEDS ORDERED: CISATRACURIUM 200 MG in SODIUM CHLORIDE 0.9% 180 ML IV SCH (16:30)
[2018-08-09] MEDS ORDERED: VANCOMYCIN IV PER PHARMACY 1 EACH MISC MISCELLANE PRN (16:31)
[2018-08-09] MEDS: NOREPINEPHRINE 16 MG in SODIUM CHLORIDE 0.9% 250 ML IV SCH (16:32)
[2018-08-09] MEDS ORDERED: ANIDULAFUNGIN 200 MG in SODIUM CHLORIDE 0.9% 200 ML IVPB ONE ×2 (16:32→17:00)
[2018-08-09] MEDS ORDERED: ACETAMINOPHEN IV (For NPO) 1,000 MG in EMPTY BAG 1 BAG IVPB PRN (16:35)
[2018-08-09] MEDS ORDERED: fentaNYL (PF) 50 MCG/ML 2 ML AMP IV SCH (16:45)
--- NOTE | 2018-08-09 17:26 | PN ---
PROGRESS NOTE DATE OF SERVICE: 08/09/2018. REASON FOR FOLLOWUP: Abdominal sepsis. INTERVAL HISTORY: The patient did have a fever of 100 degrees Fahrenheit this afternoon. The patient did require low-dose pressor around 9 to 10 mics of Levophed. Pressor running on the low side as well, FiO2. EXAM: Blood pressure 140/58 with a pulse of 150, temperature of 100. She is 99% on 55% FiO2. General description is a middle-aged female lying in bed in no distress. Respiratory system: Unlabored breathing with decreased breath sounds in the bases. No wheeze. Heart S1, S2. Regular rate and rhythm. ABDOMEN: Soft. Wound is currently covered with dressing. No output in the colostomy bag. LABS: Hemoglobin 9.1, 18.1 with a BUN of 30, creatinine 0.71. DIAGNOSTIC IMPRESSION AND PLAN: Patient with abdominal sepsis in this patient who has ruptured diverticulitis status post surgery followed by small bowel perforation status post repeat surgery in a patient whose overall prognosis remains to be guarded. The patient currently with a new fever. The patient source could have been the IV's. The patient is getting TPN as well. We will repeat blood cultures. Add Vancomycin and and continue Zosyn. Overall prognosis remains to be guarded. Continue supportive care. MMODL / IJN: [id number] /
[2018-08-09] MEDS ORDERED: fentaNYL (PF) 2,500 MCG in SODIUM CHLORIDE 0.9% 200 ML IV SCH (17:30)
[2018-08-09 17:51] LABS: Appearance,Urine Cloudy (Clear); Bacteria,Urine Rare /hpf; Bilirubin,Urine Negative (Negative); Blood,Urine Moderate (Negative); Color,Urine Light Red; Glucose,Urine (UA) Negative (Negative); Hyaline Casts,Urine 7 /lpf (0-2); Ketones,Urine Negative (Negative); Leukocyte Esterase,Urine Trace (Negative); Mucus,Urine Rare /hpf; Nitrite,Urine Negative (Negative); Protein,Urine 1+ (Negative); RBC,Urine 14 /hpf (0-5); Specific Gravity,Urine 1.022 (1.001-1.035); Urobilinogen,Urine <2.0 mg/dL (<2.0)
[2018-08-09] MEDS: VANCOMYCIN 1,500 MG in SODIUM CHLORIDE 0.9% 250 ML IVPB SCH (18:21)
[2018-08-09 18:33] LABS: Glucose,Whole Blood 120 mg/dL (75-99)
--- NOTE | 2018-08-09 18:48 | P.PN ---
Subjective Progress Note Date: 08/09/18 A 58-year-old female patient was being seen in the follow-up in the intensive care unit. The patient has a complicated history of perforated diverticulitis with abscess formation and the patient has undergone expiratory laparotomy with sigmoid colectomy and colostomy and appendicectomy and the patient is postop day #8. The patient's course was complicated by development of sepsis which is secondary to intra-abdominal source. A previous fine-needle aspirate of the abdominal abscesses yielded gram-negative and anaerobes and the patient is currently on broad-spectrum antibiotics including a combination of Unasyn and Flagyl. The patient also developed acute hypoxic respiratory failure secondary to ARDS. The patient to be reintubated on 08/01/2018 and the patient has been intubated since. In terms of her condition, the patient remains on a mechanical ventilator on assist control mode. Today the tidal volume of 350, FiO2 of 60%, PEEP of 8 and a respiratory rate of 22. Chest x-ray showed diffuse bilateral pulmonary infiltrates. The lines are in good location. ET tube is in a good location. CVP is at 10. The morning blood gases showed a pH of 7.39 with a pCO2 of 48 and pO2 of 74 and this was on FiO2 of 60%. No significant orotracheal secretions. From the neurologic standpoint, the patient is sedated with Diprivan and she is calm and comfortable and success with the mechanical ventilator. From the hemodynamic standpoint, the patient CVP is at 10. The patient was on pressors and the patient was and 6 mics of norepinephrine infusion for hemodynamic support.. She has however developed significant amount of edema in all 4 extremities patient upper extremities bilaterally and she will benefit from diuresis. She is on TPN for nutritional support. She is receiving TPN through the triple-lumen catheter. The patient is still sedated with Diprivan and the Diprivan is running at 45 mics per KG per minute and the patient on insulin drip for blood sugar control. In terms of her abdominal finding, the patient has developed some necrosis along the open wound edges bilaterally. The wound VAC is in place. There is considerable amount of output through the wound VAC and output is quite dark and cloudy. Her white cell count is at 9.9. Her serum albumin is down to 1.4 with a total protein of 3.3. Renal function is stable for now. On 08/08/2018, the patient remains critically ill. The plan is to take this patient to the operating room for another abdominal washout and debridement knowing that she had developed some necrosis along the wound surface. The wound VAC was stopped yesterday. The patient is sedated with Diprivan and she is calm and comfortable. The prednisone running at 20 mics. She remains on a mechanical ventilator. This morning she was a tidal volume of 350 with an FiO2 of 60% and a PEEP of 8 and the respiratory rate of 22. As mentioned earlier, the patient is an ARDS with diffuse but the pulmonary infiltrates and there is interval worsening in her oxygenation and in the bilateral pulmonary infiltrates seen on today's chest x-ray. The blood gases from this morning showed a pH of 42 with a pCO2 of 47 and pO2 of 65.. Based on further drop in the pulse ox, increase the PEEP up to 12 L and it his FiO2 up to 70%. A repeat blood gases is pending and will need to fix her oxygenation prior to this patient going to the operating room. The patient is still on pressors. The patient has responded to Lasix 20 mg IV every 12 hours and the neck fluid balance is negative over the past 24 hours. She is producing adequate amount of urine output. She continues to have extensive edema in the upper and lower extremities. The left thumb is still necrotic. The patient is still requiring pressors and the dose being titrated to keep a mean artery pressure above 65. She is in the order of 5-6 g of norepinephrine infusion. The patient is on Diprivan which is running at 45 mg per KG per minute. She is also on insulin drip for blood sugar control. The wound VAC is still draining extensively, and order of probably 1 L on a 24-hour period. The patient is severely hypoproteinemic and hypoalbuminemic despite being on TPN for discharge and support. Antibiotic coverage remains unchanged. The patient remains on stress dose hydrocortisone. On today's evaluation of 08/09/2008 Seeing this patient for a follow-up. The patient is doing very poorly. Events occurring yesterday was noted. The patient was taken again to the operating room and the patient was found to have residual abscess. She underwent expiratory laparotomy, small bowel resection with ileostomy and drainage of intraperitoneal localized abscess near the previous small bowel anastomosis. There was also ongoing with infection and was debrided. Postop the patient was brought back to the intensive care units. The patient is still sedated with Diprivan which is running at 35 mics. The patient was somewhat asynchronous with the mechanical ventilator. I thought this was a pain related problem and for that reason the patient was given a dose of fentanyl 50 g to which she responded nicely and she'll be started also on a fentanyl drip. She is on a mechanical ventilator on assist control mode. As mentioned earlier in her chest x-ray showing diffuse but the pulmonary infiltrates consistent with ARDS. I was having some issues with oxygen desaturation. The PEEP is currently at 14 with an FiO2 of 85%. She is tidal volume is at 350 and the rate is at 24. The peak airway pressures around 34 with metastatic a pressure of around 28. Chest x-ray findings are essentially stable with diffuse bilateral pulmonary infiltrates. ET tube is in a good location. The most recent blood gas showed a pH of 7.35 with a pCO2 of 52 and pO2 of 57. The patient is on broad-spectrum antibiotics. Antibiotic coverage includes a combination of Zosyn and vancomycin and Anidulafungin. The patient is still requiring pressors. Norepinephrine infusion is running at 8 g per KG per minute. Urine output is adequate for now and the patient is producing more than 25-30 mL of urine output on an hourly basis. She continues to have extensive edema in all 4 extremities. She has weeping and fluid seeping from her skin surface in lower extremities and arms. She has areas of skin break in lower extremities and appropriate dressing has been applied. The abdominal wound is packed. The patient has some drainage in the colostomy back and some drainage also in the ileostomy bag. She is receiving TPN for the chest support which is being provided to her through the left subclavian triple-lumen catheter. Remains on stress dose hydrocortisone. Neck fluid balance over the past 24 hours has been +192 mL. Objective - Vital Signs Vital signs: Vital Signs Temp 100.0 F H 08/09/18 16:00 Pulse 112 H 08/09/18 18:00 Resp 26 H 08/09/18 18:00 BP 93/50 08/09/18 14:00 Pulse Ox 96 08/09/18 18:00 Intake & Output 08/08/18 08/09/18 08/09/18 18:59 06:59 18:59 Intake Total 2562.826 7401.4993 1727.455 Output Total 2115 875 515 Balance -271.237 8276.4993 1212.455 Weight 80.6 kg 80.6 kg Intake: IV 988 306 8592 Ampicillin-Sulbactam 3 gm 300 100 In Sodium Chloride 0.9% 100 ml @ 200 mls/hr IVPB Q6HR JESSICA Rx#:[id number] Fentanyl 5 Mvi, Adult No.4 with Vit 45 540 495 K 10 ml Trace (Conc-1Ml/ Dose) 1 ml Potassium Chloride 40 meq Potassium Phosphate 10 mmol In Amino Acid 5%-D15w+Lytes* E* 1,000 ml @ 45 mls/hr IV .Q23H JESSICA Rx#: [id number] Pressure bag 60 72 60 Sodium Chloride 0.45% 1, 180 240 220 000 ml @ 20 mls/hr IV . Q24H JESSICA Rx#:[id number] Vancomycin 250 metroNIDAZOLE-NS PMX 500 200 100 mg In Saline 1 100ml.bag @ 100 mls/hr IVPB Q8HR JESSICA Rx#:[id number] zosyn 100 Intake, IV Titration 452.294 9142.4993 397.455 Amount Heparin Sod,Pork in 0.45% 201.203 NaCl 25,000 unit In 0.45 % NaCl 1 250ml.bag @ 12 UNITS/KG/HR 10 mls/hr IV .Q24H JESSICA Rx#:[id number] Insulin Regular 100 unit 27.624 In Sodium Chloride 0.9% 100 ml @ Per Protocol IV .Q0M JESSICA Rx#:[id number] Mvi, Adult No.4 with Vit 1034.3333 K 10 ml Trace (Conc-1Ml/ Dose) 1 ml Potassium Chloride 40 meq Potassium Phosphate 10 mmol In Amino Acid 5%-D15w+Lytes* E* 1,000 ml @ 45 mls/hr IV .Q23H JESSICA Rx#: [id number] Norepinephrine 16 mg In 0.312 45.994 213.108 Sodium Chloride 0.9% 250 ml @ Titrate IV .Q0M JESSICA Rx#:[id number] Propofol 1,000 mg In 100 85.548 184.347 Empty Bag 1 bag @ Titrate IV .Q0M JESSICA Rx#: [id number] Output: Drainage 680 160 110 Medial Abdomen 600 Right Abdomen 80 160 110 Urine 1185 715 405 Stool 200 Estimated Blood Loss 50 Other: Voiding Method Indwelling Catheter Indwelling Catheter ABP, PAP, CO, CI - Last Documented Arterial Blood Pressure 131/57 - Exam Gen. appearance the patient is intubated, comfortable likely distress the patient is sedated and the patient is on the mechanical ventilator. Orogastric and orotracheal tube are both in place. Head exam was generally normal. There was no scleral icterus or corneal arcus. Mucous membranes were moist. Neck was supple and without jugular venous distension, thyromegaly, or carotid bruits. Carotids were easily palpable bilaterally. There was no adenopathy. The patient has a triple lumen catheter in the left subclavian. The patient also has orogastric and orotracheal tube. Lungs are diminished bilaterally and there is some few basilar crackles heard in the mid and lower lung aguilera bilaterally. No wheezing. Cardiac exam revealed the PMI to be normally situated and sized. The rhythm was regular and no extrasystoles were noted during several minutes of auscultation. The first and second heart sounds were normal and physiologic splitting of the second heart sound was noted. There were no murmurs, rubs, clicks, or gallops. Abdomen exam is soft and the abdominal wound VAC is in place with serous drainage. There is evidence of necrosis of the subcutaneous tissue along the wound borders bilaterally. The patient has a functioning colostomy. There is minimal amount of output and the tissue still viable. Bowel sounds are hypoactive. The patient has an ileostomy and the patient has a colostomy. There is some liquid the dark material collecting and both bags. Extremities are showing extensive edema in all 4 extremities pressure in the upper extremities bilaterally. Neurologic the patient is sedated, comfortable not in acute distress. Exertional skin shows that the skin is poorly perfused. There is some moderate amount of skin weeping and upper extremities bilaterally. Abdominal wound is packed. The patient continues to have extensive amount of swelling and skin weeping and breakdown and this is all over. - Labs CBC & Chem 7: 08/09/18 04:00 08/09/18 04:00 Labs: Abnormal Lab Results - Last 24 Hours (Table) 08/08/18 08/08/18 08/08/18 Range/Units 19:10 19:10 19:50 WBC 17.9 H (3.8-10.6) k/uL RBC 3.14 L (3.80-5.40) m/uL Hgb 9.1 L D (11.4-16.0) gm/dL Hct 29.4 L (34.0-46.0) % MCHC (31.0-37.0) g/dL RDW 16.3 H (11.5-15.5) % Plt Count 109 L (150-450) k/uL Neutrophils # (Manual) 14.60 H (1.3-7.7) k/uL Metamyelocytes # (Man) 1.07 H (0) k/uL Myelocytes # (Manual) (0) k/uL Nucleated RBCs 4 H (0-0) /100 WBC ABG pH 7.31 L (7.35-7.45) ABG pCO2 59 H (35-45) mmHg ABG pO2 61 L (83-108) mmHg ABG HCO3 29 H (21-25) mmol/L ABG Total CO2 31 H (19-24) mmol/L ABG O2 Saturation 89.1 L (94-97) % ABG Lactic Acid 2.2 H* (0.5-1.6) mmol/L Chloride (98-107) mmol/L BUN (7-17) mg/dL Glucose (74-99) mg/dL POC Glucose (mg/dL) (75-99) mg/dL Calcium (8.4-10.2) mg/dL Phosphorus (2.5-4.5) mg/dL AST (14-36) U/L ALT (9-52) U/L Alkaline Phosphatase (38-126) U/L Total Protein (6.3-8.2) g/dL Albumin (3.5-5.0) g/dL Urine Appearance (Clear) Urine Protein (Negative) Urine Blood (Negative) Ur Leukocyte Esterase (Negative) Urine RBC (0-5) /hpf Urine WBC (0-5) /hpf Urine Bacteria (None) /hpf Hyaline Casts (0-2) /lpf Urine Mucus (None) /hpf 08/08/18 08/08/18 08/09/18 Range/Units 20:28 22:00 00:39 WBC (3.8-10.6) k/uL RBC (3.80-5.40) m/uL Hgb (11.4-16.0) gm/dL Hct (34.0-46.0) % MCHC (31.0-37.0) g/dL RDW (11.5-15.5) % Plt Count (150-450) k/uL Neutrophils # (Manual) (1.3-7.7) k/uL Metamyelocytes # (Man) (0) k/uL Myelocytes # (Manual) (0) k/uL Nucleated RBCs (0-0) /100 WBC ABG pH (7.35-7.45) ABG pCO2 (35-45) mmHg ABG pO2 (83-108) mmHg ABG HCO3 (21-25) mmol/L ABG Total CO2 (19-24) mmol/L ABG O2 Saturation (94-97) % ABG Lactic Acid (0.5-1.6) mmol/L Chloride (98-107) mmol/L BUN (7-17) mg/dL Glucose (74-99) mg/dL POC Glucose (mg/dL) 132 H 125 H 128 H (75-99) mg/dL Calcium (8.4-10.2) mg/dL Phosphorus (2.5-4.5) mg/dL AST (14-36) U/L ALT (9-52) U/L Alkaline Phosphatase (38-126) U/L Total Protein (6.3-8.2) g/dL Albumin (3.5-5.0) g/dL Urine Appearance (Clear) Urine Protein (Negative) Urine Blood (Negative) Ur Leukocyte Esterase (Negative) Urine RBC (0-5) /hpf Urine WBC (0-5) /hpf Urine Bacteria (None) /hpf Hyaline Casts (0-2) /lpf Urine Mucus (None) /hpf 08/09/18 08/09/18 08/09/18 Range/Units 02:16 04:00 04:00 WBC 18.1 H (3.8-10.6) k/uL RBC 3.13 L (3.80-5.40) m/uL Hgb 9.2 L (11.4-16.0) gm/dL Hct 29.6 L (34.0-46.0) % MCHC 30.9 L (31.0-37.0) g/dL RDW 16.2 H (11.5-15.5) % Plt Count 125 L (150-450) k/uL Neutrophils # (Manual) 15.30 H (1.3-7.7) k/uL Metamyelocytes # (Man) 0.54 H (0) k/uL Myelocytes # (Manual) 0.36 H (0) k/uL Nucleated RBCs 8 H (0-0) /100 WBC ABG pH (7.35-7.45) ABG pCO2 (35-45) mmHg ABG pO2 (83-108) mmHg ABG HCO3 (21-25) mmol/L ABG Total CO2 (19-24) mmol/L ABG O2 Saturation (94-97) % ABG Lactic Acid (0.5-1.6) mmol/L Chloride 109 H (98-107) mmol/L BUN 30 H (7-17) mg/dL Glucose 127 H (74-99) mg/dL POC Glucose (mg/dL) 143 H (75-99) mg/dL Calcium 6.9 L (8.4-10.2) mg/dL Phosphorus 5.3 H (2.5-4.5) mg/dL AST 272 H (14-36) U/L ALT 91 H (9-52) U/L Alkaline Phosphatase 160 H (38-126) U/L Total Protein 3.6 L (6.3-8.2) g/dL Albumin 1.5 L (3.5-5.0) g/dL Urine Appearance (Clear) Urine Protein (Negative) Urine Blood (Negative) Ur Leukocyte Esterase (Negative) Urine RBC (0-5) /hpf Urine WBC (0-5) /hpf Urine Bacteria (None) /hpf Hyaline Casts (0-2) /lpf Urine Mucus (None) /hpf 08/09/18 08/09/18 08/09/18 Range/Units 04:00 04:01 04:28 WBC (3.8-10.6) k/uL RBC (3.80-5.40) m/uL Hgb (11.4-16.0) gm/dL Hct (34.0-46.0) % MCHC (31.0-37.0) g/dL RDW (11.5-15.5) % Plt Count (150-450) k/uL Neutrophils # (Manual) (1.3-7.7) k/uL Metamyelocytes # (Man) (0) k/uL Myelocytes # (Manual) (0) k/uL Nucleated RBCs (0-0) /100 WBC ABG pH 7.30 L (7.35-7.45) ABG pCO2 60 H (35-45) mmHg ABG pO2 64 L (83-108) mmHg ABG HCO3 30 H (21-25) mmol/L ABG Total CO2 31 H (19-24) mmol/L ABG O2 Saturation 90.4 L (94-97) % ABG Lactic Acid 2.3 H* (0.5-1.6) mmol/L Chloride (98-107) mmol/L BUN (7-17) mg/dL Glucose (74-99) mg/dL POC Glucose (mg/dL) 100 H (75-99) mg/dL Calcium (8.4-10.2) mg/dL Phosphorus (2.5-4.5) mg/dL AST (14-36) U/L ALT (9-52) U/L Alkaline Phosphatase (38-126) U/L Total Protein (6.3-8.2) g/dL Albumin (3.5-5.0) g/dL Urine Appearance (Clear) Urine Protein (Negative) Urine Blood (Negative) Ur Leukocyte Esterase (Negative) Urine RBC (0-5) /hpf Urine WBC (0-5) /hpf Urine Bacteria (None) /hpf Hyaline Casts (0-2) /lpf Urine Mucus (None) /hpf 08/09/18 08/09/18 08/09/18 Range/Units 05:55 10:27 10:46 WBC (3.8-10.6) k/uL RBC (3.80-5.40) m/uL Hgb (11.4-16.0) gm/dL Hct (34.0-46.0) % MCHC (31.0-37.0) g/dL RDW (11.5-15.5) % Plt Count (150-450) k/uL Neutrophils # (Manual) (1.3-7.7) k/uL Metamyelocytes # (Man) (0) k/uL Myelocytes # (Manual) (0) k/uL Nucleated RBCs (0-0) /100 WBC ABG pH 7.29 L (7.35-7.45) ABG pCO2 63 H (35-45) mmHg ABG pO2 60 L (83-108) mmHg ABG HCO3 30 H (21-25) mmol/L ABG Total CO2 32 H (19-24) mmol/L ABG O2 Saturation 89.5 L (94-97) % ABG Lactic Acid (0.5-1.6) mmol/L Chloride (98-107) mmol/L BUN (7-17) mg/dL Glucose (74-99) mg/dL POC Glucose (mg/dL) 129 H 134 H (75-99) mg/dL Calcium (8.4-10.2) mg/dL Phosphorus (2.5-4.5) mg/dL AST (14-36) U/L ALT (9-52) U/L Alkaline Phosphatase (38-126) U/L Total Protein (6.3-8.2) g/dL Albumin (3.5-5.0) g/dL Urine Appearance (Clear) Urine Protein (Negative) Urine Blood (Negative) Ur Leukocyte Esterase (Negative) Urine RBC (0-5) /hpf Urine WBC (0-5) /hpf Urine Bacteria (None) /hpf Hyaline Casts (0-2) /lpf Urine Mucus (None) /hpf 08/09/18 08/09/18 08/09/18 Range/Units 12:07 12:11 16:11 WBC (3.8-10.6) k/uL RBC (3.80-5.40) m/uL Hgb (11.4-16.0) gm/dL Hct (34.0-46.0) % MCHC (31.0-37.0) g/dL RDW (11.5-15.5) % Plt Count (150-450) k/uL Neutrophils # (Manual) (1.3-7.7) k/uL Metamyelocytes # (Man) (0) k/uL Myelocytes # (Manual) (0) k/uL Nucleated RBCs (0-0) /100 WBC ABG pH 7.32 L (7.35-7.45) ABG pCO2 58 H (35-45) mmHg ABG pO2 59 L* (83-108) mmHg ABG HCO3 30 H (21-25) mmol/L ABG Total CO2 31 H (19-24) mmol/L ABG O2 Saturation 90.4 L (94-97) % ABG Lactic Acid (0.5-1.6) mmol/L Chloride (98-107) mmol/L BUN (7-17) mg/dL Glucose (74-99) mg/dL POC Glucose (mg/dL) 124 H 120 H (75-99) mg/dL Calcium (8.4-10.2) mg/dL Phosphorus (2.5-4.5) mg/dL AST (14-36) U/L ALT (9-52) U/L Alkaline Phosphatase (38-126) U/L Total Protein (6.3-8.2) g/dL Albumin (3.5-5.0) g/dL Urine Appearance (Clear) Urine Protein (Negative) Urine Blood (Negative) Ur Leukocyte Esterase (Negative) Urine RBC (0-5) /hpf Urine WBC (0-5) /hpf Urine Bacteria (None) /hpf Hyaline Casts (0-2) /lpf Urine Mucus (None) /hpf 08/09/18 08/09/18 08/09/18 Range/Units 16:22 16:50 18:30 WBC (3.8-10.6) k/uL RBC (3.80-5.40) m/uL Hgb (11.4-16.0) gm/dL Hct (34.0-46.0) % MCHC (31.0-37.0) g/dL RDW (11.5-15.5) % Plt Count (150-450) k/uL Neutrophils # (Manual) (1.3-7.7) k/uL Metamyelocytes # (Man) (0) k/uL Myelocytes # (Manual) (0) k/uL Nucleated RBCs (0-0) /100 WBC ABG pH (7.35-7.45) ABG pCO2 52 H (35-45) mmHg ABG pO2 57 L* (83-108) mmHg ABG HCO3 29 H (21-25) mmol/L ABG Total CO2 30 H (19-24) mmol/L ABG O2 Saturation 89.0 L (94-97) % ABG Lactic Acid (0.5-1.6) mmol/L Chloride (98-107) mmol/L BUN (7-17) mg/dL Glucose (74-99) mg/dL POC Glucose (mg/dL) 120 H (75-99) mg/dL Calcium (8.4-10.2) mg/dL Phosphorus (2.5-4.5) mg/dL AST (14-36) U/L ALT (9-52) U/L Alkaline Phosphatase (38-126) U/L Total Protein (6.3-8.2) g/dL Albumin (3.5-5.0) g/dL Urine Appearance Cloudy H (Clear) Urine Protein 1+ H (Negative) Urine Blood Moderate H (Negative) Ur Leukocyte Esterase Trace H (Negative) Urine RBC 14 H (0-5) /hpf Urine WBC 8 H (0-5) /hpf Urine Bacteria Rare H (None) /hpf Hyaline Casts 7 H (0-2) /lpf Urine Mucus Rare H (None) /hpf Assessment and Plan Plan: Assessment 1 complicated diverticular abscess with bowel perforation. The patient is also expiratory laparotomy, sigmoid colectomy and ostomy appendectomy. The patient is postop day #10. The patient had another expiratory laparotomy where an abscess was found next to the small bowel resection area and it was drained. The patient underwent further small bowel resection and diverting ileostomy. One debridement was also done. Patient is postop day #1 following the reexploration laparotomy. 2 sepsis secondary to abdominal infection related to a complicated diverticular abscess. The patient has gram-negative/E. coli and Beta Strep and Anaerobes , and based on the most recent findings, the antibiotics have been adjusted to include a combination of Zosyn and vancomycin and appropriate antifungal agents were also added. The patient has been recultured and meanwhile the patient is currently in a positive fluid balance and diuretics have been discontinued and the patient is receiving pressors in the form of norepinephrine infusion running at 6 g per KG per minute. The patient is also on stress dose hydrocortisone. Another 2 L of IV fluid was also given as the patient was having some hemodynamic instability and hypotension and based on that Lasix was discontinued and the patient was started on low-dose is. 3 Shock Secondary to intra-abdominal sepsis and the patient is still requiring pressors. 4 extensive volume overload in addition to hypoproteinemia and hypoproteinemia contributing to the patient's third spacing an extensive upper and lower extremity edema 5 TPN for Nutritional Support 6 Open Wound with Necrosis of the Wound Surface, and the patient has a wound VAC in place 7 acute hypoxic respiratory failure secondary to ARDS investigation with abdominal sepsis. There is been some worsening in her oxygenation compared to yesterday secondary to ARDS. The patient continues to have difficulties with oxygenation. The patient's PEEP has been increased up to 14 with an FiO2 of 85% . Most recent pulse ox is around 96% on a monitor. 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 Vascular surgery on the case and there is no significant progression and the thumb necrosis on today 's evaluation. Patient remains on IV heparin 9 severe hypoproteinemia and hypoproteinemia 10 chronic anemia, expected outcome of the above-mentioned comorbidities 11 lactic acidosis, improved 12 carotid artery insufficiency currently on IV hydrocortisone Plan Patient is doing poorly as the patient has been dealing with a complicated of her abdominal surgery. She has had to extract laparotomies the second mole was done yesterday where another abscess was drained and the patient underwent small bowel resection and diverting ileostomy. Currently she has a ileostomy and colostomy. Her abdominal wound is open and wound debridement was performed. The cultures were noted. Repeat cultures were sent. Antibiotics were further broaden unchanged to include a combination of Zosyn and vancomycin and antifungal agents. The patient was having issues with hypotension the patient was receiving 2 L of IV fluids boluses and the patient is still on pressors stress dose hydrocortisone. The necessary vent changes were done to maintain oxygen saturation above 90% and bring the pO2 above 60. IV heparin was discontinued. Continue TPN for now. Prognosis poor. Atelectatic discussion with the patient's the bedside. The odds of this patient coming recovering from this extensive complicated abdominal process is extremely low. We'll continue to follow. There is a critically care evaluation that was done more than 30 minutes. Time with Patient: Greater than 30
[2018-08-09 20:13] LABS: Glucose,Whole Blood 133 mg/dL (75-99)
[2018-08-09] MEDS: MVI, ADULT NO.4 WITH VIT K 10 ML, TRACE (CONC-1ML/DOSE) 1 ML, PARENTERAL ELECTROLYTES 2... IV SCH ×4 (21:05)
[2018-08-09 22:22] LABS: Glucose,Whole Blood 148 mg/dL (75-99)
[2018-08-09 23:47] LABS: Glucose,Whole Blood 176 mg/dL (75-99)
[2018-08-10] MEDS: PIPERACILLIN-TAZOBACTAM 3.375 GM in SODIUM CHLORIDE 0.9% 100 ML IVPB SCH ×3 (00:07→16:52)
[2018-08-10] MEDS: METOCLOPRAMIDE 5 MG/ML 2 ML VIAL IVP SCH ×4 (00:08→18:36)
[2018-08-10] MEDS: HYDROCORTISONE SUCCINATE 100 MG/2 ML VIAL IV SCH ×3 (00:08→16:51)
[2018-08-10] MEDS: PROPOFOL 1,000 MG in EMPTY BAG 1 BAG IV SCH ×4 (00:11→21:16)
[2018-08-10] MEDS: NOREPINEPHRINE 16 MG in SODIUM CHLORIDE 0.9% 250 ML IV SCH (00:12)
[2018-08-10 03:24] LABS: Glucose,Whole Blood 196 mg/dL (75-99)
[2018-08-10 04:45] LABS: Glucose,Whole Blood 185 mg/dL (75-99)
[2018-08-10 04:59] LABS: ABG Base Excess -1.4 mmol/L; ABG HCO3 27 mmol/L (21-25); ABG Oxygen Saturation 92.6 % (94-97); ABG PCO2 68 mmHg (35-45); ABG PO2 75 mmHg (83-108); ABG TCO2 29 mmol/L (19-24)
[2018-08-10] MEDS: VANCOMYCIN 1,500 MG in SODIUM CHLORIDE 0.9% 250 ML IVPB SCH ×2 (05:34→18:37)
[2018-08-10 06:06] LABS: Glucose,Whole Blood 169 mg/dL (75-99)
[2018-08-10 06:24] LABS: Anisocytosis Slight; HCT 24.8 % (34.0-46.0); HGB 8.2 gm/dL (11.4-16.0); Hypochromasia Marked; MCH 31.7 pg (25.0-35.0); MCV 96.1 fL (80.0-100.0); Mean Platelet Volume 9.4; Platelet Count 120 k/uL (150-450); RBC 2.58 m/uL (3.80-5.40); RDW 16.7 % (11.5-15.5); WBC 17.4 k/uL (3.8-10.6)
[2018-08-10 06:46] LABS: ALT 77 U/L (9-52); AST 160 U/L (14-36); Albumin 1.4 g/dL (3.5-5.0); Alkaline Phosphatase 163 U/L (38-126); Anion Gap 3 mmol/L; Blood Urea Nitrogen 37 mg/dL (7-17); Calcium 7.1 mg/dL (8.4-10.2); Carbon Dioxide 26 mmol/L (22-30); Chloride 112 mmol/L (98-107); Glucose 167 mg/dL (74-99); Lipase 17 U/L (23-300); Magnesium 2.3 mg/dL (1.6-2.3); Phosphorus 5.3 mg/dL (2.5-4.5); Potassium 5.1 mmol/L (3.5-5.1); Sodium 141 mmol/L (137-145); Total Bilirubin 0.4 mg/dL (0.2-1.3); Total Protein 3.6 g/dL (6.3-8.2)
--- NOTE | 2018-08-10 06:48 | P.PN ---
Progress Note - Text Progress Note Date: 08/09/18 The patient remains in the ICU in critical condition. Her Betadine wet-to-dry dressing was removed. She currently has a new wet-to-dry dressing in her wound. Patient remains tachycardic. She is on Lupron at 5 mics. Abdomen appears soft. Ileostomy and colostomy appeared viable. There is no significant output through the ileostomy. Sepsis with ARDS picture. Patient's condition is quite critical. We'll continue supportive care.
--- NOTE | 2018-08-10 07:38 | XR ---
EXAMINATION TYPE: XR chest 1V portable DATE OF EXAM: 08/10/2018 COMPARISON: August 09, 2018 HISTORY: SOB, Follow Up FINDINGS: Indwelling tubes and catheters are unchanged. Diffuse bilateral airspace infiltrates remain stable. Stable appearance of the cardio-mediastinal structures at this time. Pleural effusion unchanged. IMPRESSION: 1. Stable portable chest. Clinical correlation and follow up until resolution is recommended.
[2018-08-10] MEDS: IPRATROPIUM-ALBUTEROL 3 ML NEB INHALATION SCH ×4 (07:58→19:31)
[2018-08-10] MEDS: CHLORHEXIDINE GLUCONATE 15 ML CUP MUCOUS MEM SCH ×2 (08:20→21:00)
[2018-08-10 08:21] LABS: Glucose,Whole Blood 167 mg/dL (75-99)
[2018-08-10] MEDS: PANTOPRAZOLE 40 MG/10 ML VIAL IVP SCH (08:21)
[2018-08-10] MEDS ORDERED: ANIDULAFUNGIN 100 MG in SODIUM CHLORIDE 0.9% 100 ML IVPB SCH (09:00)
[2018-08-10] MEDS: ANIDULAFUNGIN 100 MG in SODIUM CHLORIDE 0.9% 100 ML IVPB SCH (09:05)
[2018-08-10] MEDS ORDERED: FUROSEMIDE 10 MG/ML 4 ML VIAL IV STA (09:47)
[2018-08-10] MEDS: ALBUMIN HUMAN 25% 50 ML in EMPTY BAG 1 BAG IVPB SCH ×4 (10:36→21:51)
[2018-08-10 10:55] LABS: Glucose,Whole Blood 155 mg/dL (75-99)
--- NOTE | 2018-08-10 11:44 | ECHOF ---
Referral Reason:anasarca/edema MEASUREMENTS -------- HEIGHT: 149.9 cm WEIGHT: 80.7 kg BP: 93/50 RVIDd: 2.9 cm (< 3.3) IVSd: 1.0 cm (0.6 - 1.1) LVIDd: 3.1 cm (3.9 - 5.3) LVPWd: 1.0 cm (0.6 - 1.1) IVSs: 1.2 cm LVIDs: 2.0 cm LVPWs: 1.2 cm LA Diam: 1.9 cm (2.7 - 3.8) Ao Diam: 2.6 cm (2.0 - 3.7) AV Cusp: 1.6 cm (1.5 - 2.6) MV E Vikram: 0.76 m/s MV DecT: 191 ms MV A Vikram: 0.77 m/s MV E/A Ratio: 0.99 RAP: 5.00 mmHg RVSP: 37.80 mmHg FINDINGS -------- Resting tachycardia (HR>100bpm). This was a technically adequate study. The left ventricular size is normal. Left ventricular wall thickness is normal. Left ventricular systolic function is hyperdynamic with an estimated EF of >70%. The right ventricle is mildly enlarged. The left atrial size is normal. The right atrium is normal in size. There is mild aortic valve sclerosis. There is no evidence of aortic regurgitation. There is no e vidence of aortic stenosis. The mitral valve leaflets are mildly thickened. There is trace to mild mitral regurgitation. Mild tricuspid regurgitation present. There is borderline pulmonary hypertension. The right ventr icular systolic pressure, as measured by Doppler, is 37.80mmHg. The pulmonic valve was not well visualized. The aortic root size is normal. Normal inferior vena cava with normal inspiratory collapse consistent with estimated right atrial pre ssure of 5 mmHg. There is a small, generalized pericardial effusion present. CONCLUSIONS -------- 1. Resting tachycardia (HR>100bpm). 2. This was a technically adequate study. 3. The left ventricular size is normal. 4. Left ventricular wall thickness is normal. 5. Left ventricular systolic function is hyperdynamic with an estimated EF of >70%. 6. The right ventricle is mildly enlarged. 7. The left atrial size is normal. 8. There is mild aortic valve sclerosis. 9. The mitral valve leaflets are mildly thickened. 10. There is trace to mild mitral regurgitation. 11. Mild tricuspid regurgitation present. 12. There is borderline pulmonary hypertension. 13. The right ventricular systolic pressure, as measured by Doppler, is 37.80mmHg. 14. The pulmonic valve was not well visualized. 15. The aortic root size is normal. 16. There is a small, generalized pericardial effusion present. DOOR TO DOOR SALES REPRESENTATIVE: rEic Chavez RDCS
--- NOTE | 2018-08-10 11:57 | P.PN ---
Subjective Progress Note Date: 08/10/18 A 58-year-old female patient was being seen in the follow-up in the intensive care unit. The patient has a complicated history of perforated diverticulitis with abscess formation and the patient has undergone expiratory laparotomy with sigmoid colectomy and colostomy and appendicectomy and the patient is postop day #8. The patient's course was complicated by development of sepsis which is secondary to intra-abdominal source. A previous fine-needle aspirate of the abdominal abscesses yielded gram-negative and anaerobes and the patient is currently on broad-spectrum antibiotics including a combination of Unasyn and Flagyl. The patient also developed acute hypoxic respiratory failure secondary to ARDS. The patient to be reintubated on 08/01/2018 and the patient has been intubated since. In terms of her condition, the patient remains on a mechanical ventilator on assist control mode. Today the tidal volume of 350, FiO2 of 60%, PEEP of 8 and a respiratory rate of 22. Chest x-ray showed diffuse bilateral pulmonary infiltrates. The lines are in good location. ET tube is in a good location. CVP is at 10. The morning blood gases showed a pH of 7.39 with a pCO2 of 48 and pO2 of 74 and this was on FiO2 of 60%. No significant orotracheal secretions. From the neurologic standpoint, the patient is sedated with Diprivan and she is calm and comfortable and success with the mechanical ventilator. From the hemodynamic standpoint, the patient CVP is at 10. The patient was on pressors and the patient was and 6 mics of norepinephrine infusion for hemodynamic support.. She has however developed significant amount of edema in all 4 extremities patient upper extremities bilaterally and she will benefit from diuresis. She is on TPN for nutritional support. She is receiving TPN through the triple-lumen catheter. The patient is still sedated with Diprivan and the Diprivan is running at 45 mics per KG per minute and the patient on insulin drip for blood sugar control. In terms of her abdominal finding, the patient has developed some necrosis along the open wound edges bilaterally. The wound VAC is in place. There is considerable amount of output through the wound VAC and output is quite dark and cloudy. Her white cell count is at 9.9. Her serum albumin is down to 1.4 with a total protein of 3.3. Renal function is stable for now. On 08/08/2018, the patient remains critically ill. The plan is to take this patient to the operating room for another abdominal washout and debridement knowing that she had developed some necrosis along the wound surface. The wound VAC was stopped yesterday. The patient is sedated with Diprivan and she is calm and comfortable. The prednisone running at 20 mics. She remains on a mechanical ventilator. This morning she was a tidal volume of 350 with an FiO2 of 60% and a PEEP of 8 and the respiratory rate of 22. As mentioned earlier, the patient is an ARDS with diffuse but the pulmonary infiltrates and there is interval worsening in her oxygenation and in the bilateral pulmonary infiltrates seen on today's chest x-ray. The blood gases from this morning showed a pH of 42 with a pCO2 of 47 and pO2 of 65.. Based on further drop in the pulse ox, increase the PEEP up to 12 L and it his FiO2 up to 70%. A repeat blood gases is pending and will need to fix her oxygenation prior to this patient going to the operating room. The patient is still on pressors. The patient has responded to Lasix 20 mg IV every 12 hours and the neck fluid balance is negative over the past 24 hours. She is producing adequate amount of urine output. She continues to have extensive edema in the upper and lower extremities. The left thumb is still necrotic. The patient is still requiring pressors and the dose being titrated to keep a mean artery pressure above 65. She is in the order of 5-6 g of norepinephrine infusion. The patient is on Diprivan which is running at 45 mg per KG per minute. She is also on insulin drip for blood sugar control. The wound VAC is still draining extensively, and order of probably 1 L on a 24-hour period. The patient is severely hypoproteinemic and hypoalbuminemic despite being on TPN for discharge and support. Antibiotic coverage remains unchanged. The patient remains on stress dose hydrocortisone. On today's evaluation of 08/09/2008 Seeing this patient for a follow-up. The patient is doing very poorly. Events occurring yesterday was noted. The patient was taken again to the operating room and the patient was found to have residual abscess. She underwent expiratory laparotomy, small bowel resection with ileostomy and drainage of intraperitoneal localized abscess near the previous small bowel anastomosis. There was also ongoing with infection and was debrided. Postop the patient was brought back to the intensive care units. The patient is still sedated with Diprivan which is running at 35 mics. The patient was somewhat asynchronous with the mechanical ventilator. I thought this was a pain related problem and for that reason the patient was given a dose of fentanyl 50 g to which she responded nicely and she'll be started also on a fentanyl drip. She is on a mechanical ventilator on assist control mode. As mentioned earlier in her chest x-ray showing diffuse but the pulmonary infiltrates consistent with ARDS. I was having some issues with oxygen desaturation. The PEEP is currently at 14 with an FiO2 of 85%. She is tidal volume is at 350 and the rate is at 24. The peak airway pressures around 34 with metastatic a pressure of around 28. Chest x-ray findings are essentially stable with diffuse bilateral pulmonary infiltrates. ET tube is in a good location. The most recent blood gas showed a pH of 7.35 with a pCO2 of 52 and pO2 of 57. The patient is on broad-spectrum antibiotics. Antibiotic coverage includes a combination of Zosyn and vancomycin and Anidulafungin. The patient is still requiring pressors. Norepinephrine infusion is running at 8 g per KG per minute. Urine output is adequate for now and the patient is producing more than 25-30 mL of urine output on an hourly basis. She continues to have extensive edema in all 4 extremities. She has weeping and fluid seeping from her skin surface in lower extremities and arms. She has areas of skin break in lower extremities and appropriate dressing has been applied. The abdominal wound is packed. The patient has some drainage in the colostomy back and some drainage also in the ileostomy bag. She is receiving TPN for the chest support which is being provided to her through the left subclavian triple-lumen catheter. Remains on stress dose hydrocortisone. Neck fluid balance over the past 24 hours has been +192 mL. On 08/10/2018, the patient remains intubated on a mechanical ventilator. She is sedated with Diprivan and fentanyl drip was added yesterday for comfort and pain reasons. The throat is running at 35 mics and fentanyl is at 50 mics. The patient is well sedated. She is a mechanical ventilator. Her FiO2 is up to 85% with a 14 of PEEP with a tidal volume of 350. Respirations are 24. The patient remains an ARDS with diffuse bilateral pulmonary infiltrates. I reviewed the blood gases from this morning and the blood gases showed a pH of 7.2 with episode of 68 and pO2 of 75. Based on that I think his respiratory rate up to 30. Chest x-ray showing bilateral pulmonary infiltrates. The findings are essentially stable compared to yesterday. ET tube is in a good location. The patient remains pressor dependent. She is on 2 mics of norepinephrine infusion at this point in time. Echocardiogram was done and patient is hyperdynamic with an ejection fraction of 70%. No evidence of the valvular abnormalities. She has no significant pulmonary hypertension. She is afebrile. Antibiotics have been adjusted and the patient is currently on a combination of Zosyn, vancomycin and Eraxis. The patient is profoundly hypoproteinemic and the is third spacing and fluid is seeping from the skin surface both in the upper and lower extremities and fluid is also seeping from the one surface noted the patient has an open abdominal wounds. Ileostomy and colostomy sites are unchanged and there is some dark material collecting in the bags. No major change in her condition compared to yesterday. She seems the more symptoms the mechanical ventilator. A comfort level is improved with the addition of fentanyl. The neck fluid balance is less than 1.5 L over the past 24 hours. Objective - Vital Signs Vital signs: Vital Signs Temp 98.2 F 08/10/18 08:00 Pulse 103 H 08/10/18 11:44 Resp 27 H 08/10/18 10:00 BP 93/50 08/10/18 07:00 Pulse Ox 93 L 08/10/18 10:00 Intake & Output 08/09/18 08/10/18 08/10/18 18:59 06:59 18:59 Intake Total 1909.650 1485.709 708 Output Total 515 935 190 Balance 1212.455 355.709 518 Weight 80.6 kg 81.1 kg Intake: IV 1330 988 708 Ampicillin-Sulbactam 3 gm 100 In Sodium Chloride 0.9% 100 ml @ 200 mls/hr IVPB Q6HR JESSICA Rx#:[id number] Anidulafungin 100 mg In 130 Sodium Chloride 0.9% 100 ml @ 84 mls/hr IVPB DAILY JESSICA Rx#:[id number] Fentanyl 5 65 15 Mvi, Adult No.4 with Vit 495 585 135 K 10 ml Trace (Conc-1Ml/ Dose) 1 ml Potassium Chloride 40 meq Potassium Phosphate 10 mmol In Amino Acid 5%-D15w+Lytes* E* 1,000 ml @ 45 mls/hr IV .Q23H JESSICA Rx#: [id number] Pressure bag 60 78 18 Sodium Chloride 0.45% 1, 220 260 60 000 ml @ 20 mls/hr IV . Q24H JESSICA Rx#:[id number] Vancomycin 250 250 metroNIDAZOLE-NS PMX 500 100 mg In Saline 1 100ml.bag @ 100 mls/hr IVPB Q8HR JESSICA Rx#:[id number] zosyn 100 100 Intake, IV Titration 397.455 302.709 Amount Insulin Regular 100 unit 31.522 In Sodium Chloride 0.9% 100 ml @ Per Protocol IV .Q0M JESSICA Rx#:[id number] Norepinephrine 16 mg In 213.108 71.187 Sodium Chloride 0.9% 250 ml @ Titrate IV .Q0M JESSICA Rx#:[id number] Propofol 1,000 mg In 184.347 200 Empty Bag 1 bag @ Titrate IV .Q0M JESSICA Rx#: [id number] Output: Drainage 110 35 Right Abdomen 110 35 Urine 405 700 190 Stool 200 Other: Voiding Method Indwelling Catheter Indwelling Catheter Indwelling Catheter ABP, PAP, CO, CI - Last Documented Arterial Blood Pressure 110/47 - Exam Gen. appearance the patient is intubated, comfortable likely distress the patient is sedated and the patient is on the mechanical ventilator. Orogastric and orotracheal tube are both in place. Head exam was generally normal. There was no scleral icterus or corneal arcus. Mucous membranes were moist. Neck was supple and without jugular venous distension, thyromegaly, or carotid bruits. Carotids were easily palpable bilaterally. There was no adenopathy. The patient has a triple lumen catheter in the left subclavian. The patient also has orogastric and orotracheal tube. Lungs are diminished bilaterally and there is some few basilar crackles heard in the mid and lower lung aguilera bilaterally. No wheezing. Cardiac exam revealed the PMI to be normally situated and sized. The rhythm was regular and no extrasystoles were noted during several minutes of auscultation. The first and second heart sounds were normal and physiologic splitting of the second heart sound was noted. There were no murmurs, rubs, clicks, or gallops. Abdomen exam is soft and the abdominal wound VAC is in place with serous drainage. There is evidence of necrosis of the subcutaneous tissue along the wound borders bilaterally. The patient has a functioning colostomy. There is minimal amount of output and the tissue still viable. Bowel sounds are hypoactive. The patient has an ileostomy and the patient has a colostomy. There is some liquid the dark material collecting and both bags. Extremities are showing extensive edema in all 4 extremities pressure in the upper extremities bilaterally. Neurologic the patient is sedated, comfortable not in acute distress. Exertional skin shows that the skin is poorly perfused. There is some moderate amount of skin weeping and upper extremities bilaterally. Abdominal wound is packed. The patient continues to have extensive amount of swelling and skin weeping and breakdown and this is all over. - Labs CBC & Chem 7: 08/10/18 05:45 08/10/18 05:45 Labs: Abnormal Lab Results - Last 24 Hours (Table) 08/09/18 08/09/18 08/09/18 Range/Units 12:07 12:11 16:11 WBC (3.8-10.6) k/uL RBC (3.80-5.40) m/uL Hgb (11.4-16.0) gm/dL Hct (34.0-46.0) % RDW (11.5-15.5) % Plt Count (150-450) k/uL ABG pH 7.32 L (7.35-7.45) ABG pCO2 58 H (35-45) mmHg ABG pO2 59 L* (83-108) mmHg ABG HCO3 30 H (21-25) mmol/L ABG Total CO2 31 H (19-24) mmol/L ABG O2 Saturation 90.4 L (94-97) % Chloride (98-107) mmol/L BUN (7-17) mg/dL Glucose (74-99) mg/dL POC Glucose (mg/dL) 124 H 120 H (75-99) mg/dL Calcium (8.4-10.2) mg/dL Phosphorus (2.5-4.5) mg/dL AST (14-36) U/L ALT (9-52) U/L Alkaline Phosphatase (38-126) U/L Total Protein (6.3-8.2) g/dL Albumin (3.5-5.0) g/dL Lipase (23-300) U/L Urine Appearance (Clear) Urine Protein (Negative) Urine Blood (Negative) Ur Leukocyte Esterase (Negative) Urine RBC (0-5) /hpf Urine WBC (0-5) /hpf Urine Bacteria (None) /hpf Hyaline Casts (0-2) /lpf Urine Mucus (None) /hpf 08/09/18 08/09/18 08/09/18 Range/Units 16:22 16:50 18:30 WBC (3.8-10.6) k/uL RBC (3.80-5.40) m/uL Hgb (11.4-16.0) gm/dL Hct (34.0-46.0) % RDW (11.5-15.5) % Plt Count (150-450) k/uL ABG pH (7.35-7.45) ABG pCO2 52 H (35-45) mmHg ABG pO2 57 L* (83-108) mmHg ABG HCO3 29 H (21-25) mmol/L ABG Total CO2 30 H (19-24) mmol/L ABG O2 Saturation 89.0 L (94-97) % Chloride (98-107) mmol/L BUN (7-17) mg/dL Glucose (74-99) mg/dL POC Glucose (mg/dL) 120 H (75-99) mg/dL Calcium (8.4-10.2) mg/dL Phosphorus (2.5-4.5) mg/dL AST (14-36) U/L ALT (9-52) U/L Alkaline Phosphatase (38-126) U/L Total Protein (6.3-8.2) g/dL Albumin (3.5-5.0) g/dL Lipase (23-300) U/L Urine Appearance Cloudy H (Clear) Urine Protein 1+ H (Negative) Urine Blood Moderate H (Negative) Ur Leukocyte Esterase Trace H (Negative) Urine RBC 14 H (0-5) /hpf Urine WBC 8 H (0-5) /hpf Urine Bacteria Rare H (None) /hpf Hyaline Casts 7 H (0-2) /lpf Urine Mucus Rare H (None) /hpf 08/09/18 08/09/18 08/09/18 Range/Units 20:10 22:08 23:44 WBC (3.8-10.6) k/uL RBC (3.80-5.40) m/uL Hgb (11.4-16.0) gm/dL Hct (34.0-46.0) % RDW (11.5-15.5) % Plt Count (150-450) k/uL ABG pH (7.35-7.45) ABG pCO2 (35-45) mmHg ABG pO2 (83-108) mmHg ABG HCO3 (21-25) mmol/L ABG Total CO2 (19-24) mmol/L ABG O2 Saturation (94-97) % Chloride (98-107) mmol/L BUN (7-17) mg/dL Glucose (74-99) mg/dL POC Glucose (mg/dL) 133 H 148 H 176 H (75-99) mg/dL Calcium (8.4-10.2) mg/dL Phosphorus (2.5-4.5) mg/dL AST (14-36) U/L ALT (9-52) U/L Alkaline Phosphatase (38-126) U/L Total Protein (6.3-8.2) g/dL Albumin (3.5-5.0) g/dL Lipase (23-300) U/L Urine Appearance (Clear) Urine Protein (Negative) Urine Blood (Negative) Ur Leukocyte Esterase (Negative) Urine RBC (0-5) /hpf Urine WBC (0-5) /hpf Urine Bacteria (None) /hpf Hyaline Casts (0-2) /lpf Urine Mucus (None) /hpf 08/10/18 08/10/18 08/10/18 Range/Units 03:21 04:07 04:54 WBC (3.8-10.6) k/uL RBC (3.80-5.40) m/uL Hgb (11.4-16.0) gm/dL Hct (34.0-46.0) % RDW (11.5-15.5) % Plt Count (150-450) k/uL ABG pH 7.20 L (7.35-7.45) ABG pCO2 68 H (35-45) mmHg ABG pO2 75 L (83-108) mmHg ABG HCO3 27 H (21-25) mmol/L ABG Total CO2 29 H (19-24) mmol/L ABG O2 Saturation 92.6 L (94-97) % Chloride (98-107) mmol/L BUN (7-17) mg/dL Glucose (74-99) mg/dL POC Glucose (mg/dL) 196 H 185 H (75-99) mg/dL Calcium (8.4-10.2) mg/dL Phosphorus (2.5-4.5) mg/dL AST (14-36) U/L ALT (9-52) U/L Alkaline Phosphatase (38-126) U/L Total Protein (6.3-8.2) g/dL Albumin (3.5-5.0) g/dL Lipase (23-300) U/L Urine Appearance (Clear) Urine Protein (Negative) Urine Blood (Negative) Ur Leukocyte Esterase (Negative) Urine RBC (0-5) /hpf Urine WBC (0-5) /hpf Urine Bacteria (None) /hpf Hyaline Casts (0-2) /lpf Urine Mucus (None) /hpf 08/10/18 08/10/18 08/10/18 Range/Units 05:45 05:45 06:03 WBC 17.4 H (3.8-10.6) k/uL RBC 2.58 L (3.80-5.40) m/uL Hgb 8.2 L (11.4-16.0) gm/dL Hct 24.8 L (34.0-46.0) % RDW 16.7 H (11.5-15.5) % Plt Count 120 L (150-450) k/uL ABG pH (7.35-7.45) ABG pCO2 (35-45) mmHg ABG pO2 (83-108) mmHg ABG HCO3 (21-25) mmol/L ABG Total CO2 (19-24) mmol/L ABG O2 Saturation (94-97) % Chloride 112 H (98-107) mmol/L BUN 37 H (7-17) mg/dL Glucose 167 H (74-99) mg/dL POC Glucose (mg/dL) 169 H (75-99) mg/dL Calcium 7.1 L (8.4-10.2) mg/dL Phosphorus 5.3 H (2.5-4.5) mg/dL AST 160 H (14-36) U/L ALT 77 H (9-52) U/L Alkaline Phosphatase 163 H (38-126) U/L Total Protein 3.6 L (6.3-8.2) g/dL Albumin 1.4 L (3.5-5.0) g/dL Lipase 17 L (23-300) U/L Urine Appearance (Clear) Urine Protein (Negative) Urine Blood (Negative) Ur Leukocyte Esterase (Negative) Urine RBC (0-5) /hpf Urine WBC (0-5) /hpf Urine Bacteria (None) /hpf Hyaline Casts (0-2) /lpf Urine Mucus (None) /hpf 08/10/18 08/10/18 Range/Units 08:08 10:48 WBC (3.8-10.6) k/uL RBC (3.80-5.40) m/uL Hgb (11.4-16.0) gm/dL Hct (34.0-46.0) % RDW (11.5-15.5) % Plt Count (150-450) k/uL ABG pH (7.35-7.45) ABG pCO2 (35-45) mmHg ABG pO2 (83-108) mmHg ABG HCO3 (21-25) mmol/L ABG Total CO2 (19-24) mmol/L ABG O2 Saturation (94-97) % Chloride (98-107) mmol/L BUN (7-17) mg/dL Glucose (74-99) mg/dL POC Glucose (mg/dL) 167 H 155 H (75-99) mg/dL Calcium (8.4-10.2) mg/dL Phosphorus (2.5-4.5) mg/dL AST (14-36) U/L ALT (9-52) U/L Alkaline Phosphatase (38-126) U/L Total Protein (6.3-8.2) g/dL Albumin (3.5-5.0) g/dL Lipase (23-300) U/L Urine Appearance (Clear) Urine Protein (Negative) Urine Blood (Negative) Ur Leukocyte Esterase (Negative) Urine RBC (0-5) /hpf Urine WBC (0-5) /hpf Urine Bacteria (None) /hpf Hyaline Casts (0-2) /lpf Urine Mucus (None) /hpf Microbiology - Last 24 Hours (Table) 02/06/19 16:50 Urine Culture - Preliminary Urine,Voided Assessment and Plan Plan: Assessment 1 complicated diverticular abscess with bowel perforation. The patient is also expiratory laparotomy, sigmoid colectomy and ostomy appendectomy. The patient is postop day #11. The patient had another expiratory laparotomy where an abscess was found next to the small bowel resection area and it was drained. The patient underwent further small bowel resection and diverting ileostomy. One debridement was also done. Patient is postop day #2 following the reexploration laparotomy. Unfortunately, the patient is doing very poor. The patient is on TPN for nutritional support. There is significant complications following the abdominal surgeries as the patient has developed ARDS and she remains intubated on a mechanical ventilator. She has become profoundly hypoproteinemic and she is developing extensive multiple third spacing and fluid seeping from the skin surface. Hemodynamically, she still pressor dependent. 2 sepsis secondary to abdominal infection related to a complicated diverticular abscess. The patient has gram-negative/E. coli and Beta Strep and Anaerobes , and based on the most recent findings, the antibiotics have been adjusted to include a combination of Zosyn and vancomycin and appropriate antifungal agents were also added. Patient remains pressor dependent and this morning the norepinephrine infusion is down to 2 g per KG per minute. 3 Shock Secondary to intra-abdominal sepsis and the patient is still requiring pressors. The echocardiogram showed a hyperdynamic LV function of 70%. 4 extensive volume overload in addition to hypoproteinemia and hypoproteinemia contributing to the patient's third spacing an extensive upper and lower extremity edema 5 TPN for Nutritional Support 6 Open Wound with Necrosis of the Wound Surface, status post debridement 7 acute hypoxic respiratory failure secondary to ARDS , still on low tidal volume ventilation. The patient is on high PEEP of 14 with an FiO2 of 85%. 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 Vascular surgery on the case and there is no significant progression and the thumb necrosis on today 's evaluation. Examination of the left thumb remains unchanged on today's evaluation. 9 severe hypoproteinemia and hypoproteinemia 10 chronic anemia, expected outcome of the above-mentioned comorbidities 11 lactic acidosis, improved 12 carotid artery insufficiency currently on IV hydrocortisone Plan Continue current supportive care. Increase respiratory rate up to 30. Keep the FiO2 at 85%. Keep tidal volume of 350 with a PEEP of 14. Continue TPN for nutritional support. Unable to feed this patient and thoroughly for now. Continue same antibiotic coverage. Wean off pressors if possible. Continue to follow. Prognosis is extremely poor due to above-mentioned comorbidities. Critically care evaluation was done more than 35 minutes. Case was discussed with general surgery. Family was updated. Time with Patient: Greater than 30
--- NOTE | 2018-08-10 12:00 | P.PN ---
Subjective Progress Note Date: 08/10/18 Principal diagnosis: Perforated diverticulitis The patient remains in critical condition. She is slightly improved today. She 's had good urine output. She remains hemodynamically stable on 4 g of levophed Objective - Vital Signs Vital signs: Vital Signs Temp 98.2 F 08/10/18 08:00 Pulse 103 H 08/10/18 11:44 Resp 26 H 08/10/18 11:00 BP 93/50 08/10/18 07:00 Pulse Ox 93 L 08/10/18 11:00 Intake & Output 08/09/18 08/10/18 08/10/18 18:59 06:59 18:59 Intake Total 7231.798 9180.709 784 Output Total 515 935 450 Balance 1212.455 355.709 334 Weight 80.6 kg 81.1 kg Intake: IV 1330 988 784 Ampicillin-Sulbactam 3 gm 100 In Sodium Chloride 0.9% 100 ml @ 200 mls/hr IVPB Q6HR [facility] Rx#:[id number] Anidulafungin 100 mg In 130 Sodium Chloride 0.9% 100 ml @ 84 mls/hr IVPB DAILY [facility] Rx#:[id number] Fentanyl 5 65 20 Mvi, Adult No.4 with Vit 495 585 180 K 10 ml Trace (Conc-1Ml/ Dose) 1 ml Potassium Chloride 40 meq Potassium Phosphate 10 mmol In Amino Acid 5%-D15w+Lytes* E* 1,000 ml @ 45 mls/hr IV .Q23H [facility] Rx#: [id number] Pressure bag 60 78 24 Sodium Chloride 0.45% 1, 220 260 80 000 ml @ 20 mls/hr IV . Q24H [facility] Rx#:[id number] Vancomycin 250 250 metroNIDAZOLE-NS PMX 500 100 mg In Saline 1 100ml.bag @ 100 mls/hr IVPB Q8HR [facility] Rx#:[id number] zosyn 100 100 Intake, IV Titration 397.455 302.709 Amount Insulin Regular 100 unit 31.522 In Sodium Chloride 0.9% 100 ml @ Per Protocol IV .Q0M [facility] Rx#:[id number] Norepinephrine 16 mg In 213.108 71.187 Sodium Chloride 0.9% 250 ml @ Titrate IV .Q0M [facility] Rx#:[id number] Propofol 1,000 mg In 184.347 200 Empty Bag 1 bag @ Titrate IV .Q0M [facility] Rx#: [id number] Output: Drainage 110 35 Right Abdomen 110 35 Urine 405 700 450 Stool 200 Other: Voiding Method Indwelling Catheter Indwelling Catheter Indwelling Catheter ABP, PAP, CO, CI - Last Documented Arterial Blood Pressure 111/46 - Gastrointestinal Gastrointestinal Comment(s): Abdomen soft. Ileostomy dysfunction. There is less output through the defunctionalized colostomy. The wound was examined. There is some ischemic fat the wound. - Labs CBC & Chem 7: 08/10/18 05:45 08/10/18 05:45 Labs: Abnormal Lab Results - Last 24 Hours (Table) 08/09/18 08/09/18 08/09/18 Range/Units 12:07 12:11 16:11 WBC (3.8-10.6) k/uL RBC (3.80-5.40) m/uL Hgb (11.4-16.0) gm/dL Hct (34.0-46.0) % RDW (11.5-15.5) % Plt Count (150-450) k/uL ABG pH 7.32 L (7.35-7.45) ABG pCO2 58 H (35-45) mmHg ABG pO2 59 L* (83-108) mmHg ABG HCO3 30 H (21-25) mmol/L ABG Total CO2 31 H (19-24) mmol/L ABG O2 Saturation 90.4 L (94-97) % Chloride (98-107) mmol/L BUN (7-17) mg/dL Glucose (74-99) mg/dL POC Glucose (mg/dL) 124 H 120 H (75-99) mg/dL Calcium (8.4-10.2) mg/dL Phosphorus (2.5-4.5) mg/dL AST (14-36) U/L ALT (9-52) U/L Alkaline Phosphatase (38-126) U/L Total Protein (6.3-8.2) g/dL Albumin (3.5-5.0) g/dL Lipase (23-300) U/L Urine Appearance (Clear) Urine Protein (Negative) Urine Blood (Negative) Ur Leukocyte Esterase (Negative) Urine RBC (0-5) /hpf Urine WBC (0-5) /hpf Urine Bacteria (None) /hpf Hyaline Casts (0-2) /lpf Urine Mucus (None) /hpf 08/09/18 08/09/18 08/09/18 Range/Units 16:22 16:50 18:30 WBC (3.8-10.6) k/uL RBC (3.80-5.40) m/uL Hgb (11.4-16.0) gm/dL Hct (34.0-46.0) % RDW (11.5-15.5) % Plt Count (150-450) k/uL ABG pH (7.35-7.45) ABG pCO2 52 H (35-45) mmHg ABG pO2 57 L* (83-108) mmHg ABG HCO3 29 H (21-25) mmol/L ABG Total CO2 30 H (19-24) mmol/L ABG O2 Saturation 89.0 L (94-97) % Chloride (98-107) mmol/L BUN (7-17) mg/dL Glucose (74-99) mg/dL POC Glucose (mg/dL) 120 H (75-99) mg/dL Calcium (8.4-10.2) mg/dL Phosphorus (2.5-4.5) mg/dL AST (14-36) U/L ALT (9-52) U/L Alkaline Phosphatase (38-126) U/L Total Protein (6.3-8.2) g/dL Albumin (3.5-5.0) g/dL Lipase (23-300) U/L Urine Appearance Cloudy H (Clear) Urine Protein 1+ H (Negative) Urine Blood Moderate H (Negative) Ur Leukocyte Esterase Trace H (Negative) Urine RBC 14 H (0-5) /hpf Urine WBC 8 H (0-5) /hpf Urine Bacteria Rare H (None) /hpf Hyaline Casts 7 H (0-2) /lpf Urine Mucus Rare H (None) /hpf 08/09/18 08/09/18 08/09/18 Range/Units 20:10 22:08 23:44 WBC (3.8-10.6) k/uL RBC (3.80-5.40) m/uL Hgb (11.4-16.0) gm/dL Hct (34.0-46.0) % RDW (11.5-15.5) % Plt Count (150-450) k/uL ABG pH (7.35-7.45) ABG pCO2 (35-45) mmHg ABG pO2 (83-108) mmHg ABG HCO3 (21-25) mmol/L ABG Total CO2 (19-24) mmol/L ABG O2 Saturation (94-97) % Chloride (98-107) mmol/L BUN (7-17) mg/dL Glucose (74-99) mg/dL POC Glucose (mg/dL) 133 H 148 H 176 H (75-99) mg/dL Calcium (8.4-10.2) mg/dL Phosphorus (2.5-4.5) mg/dL AST (14-36) U/L ALT (9-52) U/L Alkaline Phosphatase (38-126) U/L Total Protein (6.3-8.2) g/dL Albumin (3.5-5.0) g/dL Lipase (23-300) U/L Urine Appearance (Clear) Urine Protein (Negative) Urine Blood (Negative) Ur Leukocyte Esterase (Negative) Urine RBC (0-5) /hpf Urine WBC (0-5) /hpf Urine Bacteria (None) /hpf Hyaline Casts (0-2) /lpf Urine Mucus (None) /hpf 08/10/18 08/10/18 08/10/18 Range/Units 03:21 04:07 04:54 WBC (3.8-10.6) k/uL RBC (3.80-5.40) m/uL Hgb (11.4-16.0) gm/dL Hct (34.0-46.0) % RDW (11.5-15.5) % Plt Count (150-450) k/uL ABG pH 7.20 L (7.35-7.45) ABG pCO2 68 H (35-45) mmHg ABG pO2 75 L (83-108) mmHg ABG HCO3 27 H (21-25) mmol/L ABG Total CO2 29 H (19-24) mmol/L ABG O2 Saturation 92.6 L (94-97) % Chloride (98-107) mmol/L BUN (7-17) mg/dL Glucose (74-99) mg/dL POC Glucose (mg/dL) 196 H 185 H (75-99) mg/dL Calcium (8.4-10.2) mg/dL Phosphorus (2.5-4.5) mg/dL AST (14-36) U/L ALT (9-52) U/L Alkaline Phosphatase (38-126) U/L Total Protein (6.3-8.2) g/dL Albumin (3.5-5.0) g/dL Lipase (23-300) U/L Urine Appearance (Clear) Urine Protein (Negative) Urine Blood (Negative) Ur Leukocyte Esterase (Negative) Urine RBC (0-5) /hpf Urine WBC (0-5) /hpf Urine Bacteria (None) /hpf Hyaline Casts (0-2) /lpf Urine Mucus (None) /hpf 08/10/18 08/10/18 08/10/18 Range/Units 05:45 05:45 06:03 WBC 17.4 H (3.8-10.6) k/uL RBC 2.58 L (3.80-5.40) m/uL Hgb 8.2 L (11.4-16.0) gm/dL Hct 24.8 L (34.0-46.0) % RDW 16.7 H (11.5-15.5) % Plt Count 120 L (150-450) k/uL ABG pH (7.35-7.45) ABG pCO2 (35-45) mmHg ABG pO2 (83-108) mmHg ABG HCO3 (21-25) mmol/L ABG Total CO2 (19-24) mmol/L ABG O2 Saturation (94-97) % Chloride 112 H (98-107) mmol/L BUN 37 H (7-17) mg/dL Glucose 167 H (74-99) mg/dL POC Glucose (mg/dL) 169 H (75-99) mg/dL Calcium 7.1 L (8.4-10.2) mg/dL Phosphorus 5.3 H (2.5-4.5) mg/dL AST 160 H (14-36) U/L ALT 77 H (9-52) U/L Alkaline Phosphatase 163 H (38-126) U/L Total Protein 3.6 L (6.3-8.2) g/dL Albumin 1.4 L (3.5-5.0) g/dL Lipase 17 L (23-300) U/L Urine Appearance (Clear) Urine Protein (Negative) Urine Blood (Negative) Ur Leukocyte Esterase (Negative) Urine RBC (0-5) /hpf Urine WBC (0-5) /hpf Urine Bacteria (None) /hpf Hyaline Casts (0-2) /lpf Urine Mucus (None) /hpf 08/10/18 08/10/18 Range/Units 08:08 10:48 WBC (3.8-10.6) k/uL RBC (3.80-5.40) m/uL Hgb (11.4-16.0) gm/dL Hct (34.0-46.0) % RDW (11.5-15.5) % Plt Count (150-450) k/uL ABG pH (7.35-7.45) ABG pCO2 (35-45) mmHg ABG pO2 (83-108) mmHg ABG HCO3 (21-25) mmol/L ABG Total CO2 (19-24) mmol/L ABG O2 Saturation (94-97) % Chloride (98-107) mmol/L BUN (7-17) mg/dL Glucose (74-99) mg/dL POC Glucose (mg/dL) 167 H 155 H (75-99) mg/dL Calcium (8.4-10.2) mg/dL Phosphorus (2.5-4.5) mg/dL AST (14-36) U/L ALT (9-52) U/L Alkaline Phosphatase (38-126) U/L Total Protein (6.3-8.2) g/dL Albumin (3.5-5.0) g/dL Lipase (23-300) U/L Urine Appearance (Clear) Urine Protein (Negative) Urine Blood (Negative) Ur Leukocyte Esterase (Negative) Urine RBC (0-5) /hpf Urine WBC (0-5) /hpf Urine Bacteria (None) /hpf Hyaline Casts (0-2) /lpf Urine Mucus (None) /hpf Microbiology - Last 24 Hours (Table) 08/09/18 16:50 Urine Culture - Preliminary Urine,Voided Assessment and Plan Assessment: Diverticulitis ARDS Sepsis Patient will Have supportive care. We will add Aquacel silver to her wound.
[2018-08-10 12:50] LABS: Glucose,Whole Blood 176 mg/dL (75-99)
[2018-08-10] MEDS: NOREPINEPHRINE 32 MG in SODIUM CHLORIDE 0.9% 250 ML IV SCH (14:32)
--- NOTE | 2018-08-10 14:46 | P.PN ---
Subjective Progress Note Date: 08/10/18 Principal diagnosis: Patient is a 58-year-old female with no significant past medical history o who presented to the emergency department at the recommendations of her PCP for dehydration, nausea, and vomiting. In the emergency department she underwent an extensive evaluation. Computed tomography scan of the abdomen showed diverticular abscess with partial bowel obstruction she was admitted for further management. Initial laboratory analysis showed a sodium of 132, carbon dioxide 21, and a negative urinalysis. She was started on IV fluids, antibiotics and was admitted. General surgery was consulted. Patient initially wanted conservative management did not want surgery. Interventional radiology was consulted and she underwent abscess ranges placement of percutaneous drain on 07/28/18. She was found to have an elevated PTT and hematology was consulted. They felt that this was likely due to poor nutritional intake and ordered additional vitamin K. Her PT INR normalized with additional vitamin K. She was seen by ID who discontinue meropenem and started her on Zosyn. She had initially been progressing well. Overnight on she developed increasing pain and nausea. She started requiring IV narcotics for treatment of her pain. She then became tachycardic. Morning blood work on 07/30 showed a depressed white blood cell count at 2.5, and carbon dioxide of 12. Stat CT with IV contrast as well as a stat lactic acid and a [address] abdomen and pelvis showed free air. Case discussed with Dr. Jacobson and patient was taken urgently to the operating room for ex-lap due to perforated viscus. During the procedure, the patient was noted to have fecal peritonitis and underwent a sigmoid colectomy with end colostomy. She was transferred to the ICU post-operatively and was started on IV pressors. The patient was extubated on 07/31/18. However, she continued to require Levophed. ID recommended the patient to be switched to Unasyn and Flagyl. A random cortisol level was drawn and was 22, for which patient was started on hydrocortisone for suspected adrenal insufficiency. On 08/02 the patient developed respiratory distress and was re-intubated. She was also noted to have L thumb discoloration with history of art line placement on that wrist. Vascular surgery was consulted and did not recommend urgent surgical intervention. Her pressors were able to taken off momentarily on 08/06 but required to be restarted on 08/07. She had a dusky appearance to the wound edges and was taken back to the OR on 08/09 and underwent small bowel resection with abdominal wound debridement. patiently currently on mechanical ventilator and sedated on propofol also on fentanyl drip for pain and comfort, currently on Levophed at 2 mcg. Patient continues to have anasarca. Continues to be afebrile Objective - Vital Signs Vital signs: Vital Signs Temp 99.5 F 08/10/18 04:00 Pulse 116 H 08/10/18 07:00 Resp 24 08/10/18 07:00 BP 93/50 08/10/18 07:00 Pulse Ox 92 L 08/10/18 07:00 Intake & Output 08/09/18 08/10/18 08/10/18 18:59 06:59 18:59 Intake Total 1361.024 2592.709 Output Total 515 935 Balance 1212.455 255.709 Weight 80.6 kg 81.1 kg Intake: IV 1330 988 Ampicillin-Sulbactam 3 gm 100 In Sodium Chloride 0.9% 100 ml @ 200 mls/hr IVPB Q6HR [facility] Rx#:[id number] Fentanyl 5 65 Mvi, Adult No.4 with Vit 495 585 K 10 ml Trace (Conc-1Ml/ Dose) 1 ml Potassium Chloride 40 meq Potassium Phosphate 10 mmol In Amino Acid 5%-D15w+Lytes* E* 1,000 ml @ 45 mls/hr IV .Q23H [facility] Rx#: [id number] Pressure bag 60 78 Sodium Chloride 0.45% 1, 220 260 000 ml @ 20 mls/hr IV . Q24H [facility] Rx#:[id number] Vancomycin 250 metroNIDAZOLE-NS PMX 500 100 mg In Saline 1 100ml.bag @ 100 mls/hr IVPB Q8HR [facility] Rx#:[id number] zosyn 100 Intake, IV Titration 397.455 202.709 Amount Insulin Regular 100 unit 31.522 In Sodium Chloride 0.9% 100 ml @ Per Protocol IV .Q0M [facility] Rx#:[id number] Norepinephrine 16 mg In 213.108 71.187 Sodium Chloride 0.9% 250 ml @ Titrate IV .Q0M [facility] Rx#:[id number] Propofol 1,000 mg In 184.347 100 Empty Bag 1 bag @ Titrate IV .Q0M [facility] Rx#: [id number] Output: Drainage 110 35 Right Abdomen 110 35 Urine 405 700 Stool 200 Other: Voiding Method Indwelling Catheter Indwelling Catheter ABP, PAP, CO, CI - Last Documented Arterial Blood Pressure 105/50 - Exam Constitutional: Intubated currently on mechanical ventilator, OG/OT tubes in place Eyes: Anicteric sclerae, moist conjunctiva, no lid-lag, PERRLA ENMT: NC/AT,Oropharynx clear, no erythema, exudates Neck:Supple, FROM, no masses, or JVD, No carotid bruits; No thyromegaly Lungs: Diminished bilaterally with some bibasilar crackles, no wheezes Cardiovascular: Heart regular in rate and rhythm, No murmurs, gallops, or rubs no peripheral edema Abdominal: Soft Nontender, abdominal wound VAC in place with serous drainage evidence of necrosis, functioning colostomy and ileostomy with dark fluid collection in both, hypoactive bowel sounds Skin: Multiple tears with seepage of serous fluid due to anasarca Extremities: Left thumb violaceously discolored dark, unable to palpate Radial pulse which is heard with Doppler Psychiatric: Alert and oriented to person, place and time, Appropriate affect Intact judgement - Labs CBC & Chem 7: 08/10/18 05:45 08/10/18 05:45 Labs: Abnormal Lab Results - Last 24 Hours (Table) 08/09/18 08/09/18 08/09/18 Range/Units 04:00 10:27 10:46 WBC 18.1 H (3.8-10.6) k/uL RBC (3.80-5.40) m/uL Hgb (11.4-16.0) gm/dL Hct (34.0-46.0) % RDW (11.5-15.5) % Plt Count (150-450) k/uL Neutrophils # (Manual) 15.30 H (1.3-7.7) k/uL Metamyelocytes # (Man) 0.54 H (0) k/uL Myelocytes # (Manual) 0.36 H (0) k/uL Nucleated RBCs 8 H (0-0) /100 WBC ABG pH 7.29 L (7.35-7.45) ABG pCO2 63 H (35-45) mmHg ABG pO2 60 L (83-108) mmHg ABG HCO3 30 H (21-25) mmol/L ABG Total CO2 32 H (19-24) mmol/L ABG O2 Saturation 89.5 L (94-97) % Chloride (98-107) mmol/L BUN (7-17) mg/dL Glucose (74-99) mg/dL POC Glucose (mg/dL) 134 H (75-99) mg/dL Calcium (8.4-10.2) mg/dL Phosphorus (2.5-4.5) mg/dL AST (14-36) U/L ALT (9-52) U/L Alkaline Phosphatase (38-126) U/L Total Protein (6.3-8.2) g/dL Albumin (3.5-5.0) g/dL Lipase (23-300) U/L Urine Appearance (Clear) Urine Protein (Negative) Urine Blood (Negative) Ur Leukocyte Esterase (Negative) Urine RBC (0-5) /hpf Urine WBC (0-5) /hpf Urine Bacteria (None) /hpf Hyaline Casts (0-2) /lpf Urine Mucus (None) /hpf 08/09/18 08/09/18 08/09/18 Range/Units 12:07 12:11 16:11 WBC (3.8-10.6) k/uL RBC (3.80-5.40) m/uL Hgb (11.4-16.0) gm/dL Hct (34.0-46.0) % RDW (11.5-15.5) % Plt Count (150-450) k/uL Neutrophils # (Manual) (1.3-7.7) k/uL Metamyelocytes # (Man) (0) k/uL Myelocytes # (Manual) (0) k/uL Nucleated RBCs (0-0) /100 WBC ABG pH 7.32 L (7.35-7.45) ABG pCO2 58 H (35-45) mmHg ABG pO2 59 L* (83-108) mmHg ABG HCO3 30 H (21-25) mmol/L ABG Total CO2 31 H (19-24) mmol/L ABG O2 Saturation 90.4 L (94-97) % Chloride (98-107) mmol/L BUN (7-17) mg/dL Glucose (74-99) mg/dL POC Glucose (mg/dL) 124 H 120 H (75-99) mg/dL Calcium (8.4-10.2) mg/dL Phosphorus (2.5-4.5) mg/dL AST (14-36) U/L ALT (9-52) U/L Alkaline Phosphatase (38-126) U/L Total Protein (6.3-8.2) g/dL Albumin (3.5-5.0) g/dL Lipase (23-300) U/L Urine Appearance (Clear) Urine Protein (Negative) Urine Blood (Negative) Ur Leukocyte Esterase (Negative) Urine RBC (0-5) /hpf Urine WBC (0-5) /hpf Urine Bacteria (None) /hpf Hyaline Casts (0-2) /lpf Urine Mucus (None) /hpf 08/09/18 08/09/18 08/09/18 Range/Units 16:22 16:50 18:30 WBC (3.8-10.6) k/uL RBC (3.80-5.40) m/uL Hgb (11.4-16.0) gm/dL Hct (34.0-46.0) % RDW (11.5-15.5) % Plt Count (150-450) k/uL Neutrophils # (Manual) (1.3-7.7) k/uL Metamyelocytes # (Man) (0) k/uL Myelocytes # (Manual) (0) k/uL Nucleated RBCs (0-0) /100 WBC ABG pH (7.35-7.45) ABG pCO2 52 H (35-45) mmHg ABG pO2 57 L* (83-108) mmHg ABG HCO3 29 H (21-25) mmol/L ABG Total CO2 30 H (19-24) mmol/L ABG O2 Saturation 89.0 L (94-97) % Chloride (98-107) mmol/L BUN (7-17) mg/dL Glucose (74-99) mg/dL POC Glucose (mg/dL) 120 H (75-99) mg/dL Calcium (8.4-10.2) mg/dL Phosphorus (2.5-4.5) mg/dL AST (14-36) U/L ALT (9-52) U/L Alkaline Phosphatase (38-126) U/L Total Protein (6.3-8.2) g/dL Albumin (3.5-5.0) g/dL Lipase (23-300) U/L Urine Appearance Cloudy H (Clear) Urine Protein 1+ H (Negative) Urine Blood Moderate H (Negative) Ur Leukocyte Esterase Trace H (Negative) Urine RBC 14 H (0-5) /hpf Urine WBC 8 H (0-5) /hpf Urine Bacteria Rare H (None) /hpf Hyaline Casts 7 H (0-2) /lpf Urine Mucus Rare H (None) /hpf 08/09/18 08/09/18 08/09/18 Range/Units 20:10 22:08 23:44 WBC (3.8-10.6) k/uL RBC (3.80-5.40) m/uL Hgb (11.4-16.0) gm/dL Hct (34.0-46.0) % RDW (11.5-15.5) % Plt Count (150-450) k/uL Neutrophils # (Manual) (1.3-7.7) k/uL Metamyelocytes # (Man) (0) k/uL Myelocytes # (Manual) (0) k/uL Nucleated RBCs (0-0) /100 WBC ABG pH (7.35-7.45) ABG pCO2 (35-45) mmHg ABG pO2 (83-108) mmHg ABG HCO3 (21-25) mmol/L ABG Total CO2 (19-24) mmol/L ABG O2 Saturation (94-97) % Chloride (98-107) mmol/L BUN (7-17) mg/dL Glucose (74-99) mg/dL POC Glucose (mg/dL) 133 H 148 H 176 H (75-99) mg/dL Calcium (8.4-10.2) mg/dL Phosphorus (2.5-4.5) mg/dL AST (14-36) U/L ALT (9-52) U/L Alkaline Phosphatase (38-126) U/L Total Protein (6.3-8.2) g/dL Albumin (3.5-5.0) g/dL Lipase (23-300) U/L Urine Appearance (Clear) Urine Protein (Negative) Urine Blood (Negative) Ur Leukocyte Esterase (Negative) Urine RBC (0-5) /hpf Urine WBC (0-5) /hpf Urine Bacteria (None) /hpf Hyaline Casts (0-2) /lpf Urine Mucus (None) /hpf 08/10/18 08/10/18 08/10/18 Range/Units 03:21 04:07 04:54 WBC (3.8-10.6) k/uL RBC (3.80-5.40) m/uL Hgb (11.4-16.0) gm/dL Hct (34.0-46.0) % RDW (11.5-15.5) % Plt Count (150-450) k/uL Neutrophils # (Manual) (1.3-7.7) k/uL Metamyelocytes # (Man) (0) k/uL Myelocytes # (Manual) (0) k/uL Nucleated RBCs (0-0) /100 WBC ABG pH 7.20 L (7.35-7.45) ABG pCO2 68 H (35-45) mmHg ABG pO2 75 L (83-108) mmHg ABG HCO3 27 H (21-25) mmol/L ABG Total CO2 29 H (19-24) mmol/L ABG O2 Saturation 92.6 L (94-97) % Chloride (98-107) mmol/L BUN (7-17) mg/dL Glucose (74-99) mg/dL POC Glucose (mg/dL) 196 H 185 H (75-99) mg/dL Calcium (8.4-10.2) mg/dL Phosphorus (2.5-4.5) mg/dL AST (14-36) U/L ALT (9-52) U/L Alkaline Phosphatase (38-126) U/L Total Protein (6.3-8.2) g/dL Albumin (3.5-5.0) g/dL Lipase (23-300) U/L Urine Appearance (Clear) Urine Protein (Negative) Urine Blood (Negative) Ur Leukocyte Esterase (Negative) Urine RBC (0-5) /hpf Urine WBC (0-5) /hpf Urine Bacteria (None) /hpf Hyaline Casts (0-2) /lpf Urine Mucus (None) /hpf 08/10/18 08/10/18 08/10/18 Range/Units 05:45 05:45 06:03 WBC 17.4 H (3.8-10.6) k/uL RBC 2.58 L (3.80-5.40) m/uL Hgb 8.2 L (11.4-16.0) gm/dL Hct 24.8 L (34.0-46.0) % RDW 16.7 H (11.5-15.5) % Plt Count 120 L (150-450) k/uL Neutrophils # (Manual) (1.3-7.7) k/uL Metamyelocytes # (Man) (0) k/uL Myelocytes # (Manual) (0) k/uL Nucleated RBCs (0-0) /100 WBC ABG pH (7.35-7.45) ABG pCO2 (35-45) mmHg ABG pO2 (83-108) mmHg ABG HCO3 (21-25) mmol/L ABG Total CO2 (19-24) mmol/L ABG O2 Saturation (94-97) % Chloride 112 H (98-107) mmol/L BUN 37 H (7-17) mg/dL Glucose 167 H (74-99) mg/dL POC Glucose (mg/dL) 169 H (75-99) mg/dL Calcium 7.1 L (8.4-10.2) mg/dL Phosphorus 5.3 H (2.5-4.5) mg/dL AST 160 H (14-36) U/L ALT 77 H (9-52) U/L Alkaline Phosphatase 163 H (38-126) U/L Total Protein 3.6 L (6.3-8.2) g/dL Albumin 1.4 L (3.5-5.0) g/dL Lipase 17 L (23-300) U/L Urine Appearance (Clear) Urine Protein (Negative) Urine Blood (Negative) Ur Leukocyte Esterase (Negative) Urine RBC (0-5) /hpf Urine WBC (0-5) /hpf Urine Bacteria (None) /hpf Hyaline Casts (0-2) /lpf Urine Mucus (None) /hpf Microbiology - Last 24 Hours (Table) 08/09/18 16:50 Urine Culture - Preliminary Urine,Voided Assessment and Plan Assessment: Septic shock * Continue with stress dose of Solu-Cortef along with iv pressor levophed * Appears intravascularly depleted secondary to third spacing with noted anasarca * Continue with antibiotic regimen of vancomycin and Zosyn and Eraxis * follow up Echocardiogram Diverticulitis with abscess and bowel perforation with septic shock s/p sigmoid colectomy, small bowel resection X 2 and appendectomy and debridement of wound necrosis - additional intraabdominal abscess - wean levophed as able - Surgery recs -Appreciate ID recommendations Acute hypoxic respiratory failure due ARDS secondary to septic shock - vent management per ICU team - CXR reviewed stable showing bilateral pulmonary infiltrates - Consider trach in the next few days if no improvement and patient stable Anasarca * Diffuse third spacing patient intravascularly depleted * Continue with Lasix with pretreated with albumin * Continues to be hypoalbuminemic ARDS * secondary to septic shock from intra-abdominal infection/abscess/peritonitis -Resume lasix to 40 mg IV q12 hours, to be given after albumin load - treatment of infections - PEEP increased, low tidal volume - critical care recs Anemia, dilutational due to prolonged ICU stay - stable - follow CBC - transfuse for HgB <6 Transaminitis - likely due to TPN and hypoperfusion from shock liver - follow liver enzymes Relative adrenal insufficiency - stress dose steroids, wean per pulm/cc recs Hyperglycemia due to steroids and TPN - prediabetes - A1C 6.1, diet modification on discharge - follow BS and continue insulin gtt Post-op ileus - on TPN - NGT to suction - general surgery recs Severe Protein calorie malnutrition - on TPN Left thumb ischemia secondary to radial artery occlusion - vascular surgery recs appreciated, conservative management at this time. - heparin gtt held per surgery Thromboctypenia, reactive to sepsis, improving - follow CBC - HIT AB negative - Oncology recs appreciated AST elevation - monitor on TPN and ABX Hyponatremia, hypokalemia, hypophosphatemia, and hypomagnesemia resolved Coagulopathy, resolved Anion Gap metabolic acidosis, resolved lactic acidosis, improved DVT prophylaxis: Heparin held by general surgery Anticipated discharge: undetermined Place:[facility] A total of 45 minutes, complex care of this patient. (1) Sepsis Current Visit: Yes Status: Acute Code(s): A41.9 - SEPSIS, UNSPECIFIED ORGANISM SNOMED Code(s): 05928094 (2) Colonic diverticular abscess Current Visit: Yes Status: Acute Code(s): K57.20 - DVTRCLI OF LG INT W PERFORATION AND ABSCESS W/O BLEEDING SNOMED Code(s): 152708166 (3) Partial bowel obstruction Current Visit: Yes Status: Acute Code(s): K56.600 - PARTIAL INTESTINAL OBSTRUCTION, UNSPECIFIED TO CAUSE SNOMED Code(s): 80713429 (4) Abdominal pain Current Visit: Yes Status: Acute Code(s): R10.9 - UNSPECIFIED ABDOMINAL PAIN SNOMED Code(s): 08779959 (5) Coagulopathy Current Visit: Yes Status: Resolved Code(s): D68.9 - COAGULATION DEFECT, UNSPECIFIED SNOMED Code(s): 31446839 (6) Constipation Current Visit: Yes Status: Acute Code(s): K59.00 - CONSTIPATION, UNSPECIFIED SNOMED Code(s): 17456331
[2018-08-10 14:57] LABS: Glucose,Whole Blood 181 mg/dL (75-99)
[2018-08-10] MEDS: fentaNYL (PF) 1,000 MCG in SODIUM CHLORIDE 0.9% 80 ML IV SCH (15:11)
[2018-08-10] MEDS: INSULIN REGULAR 100 UNIT in SODIUM CHLORIDE 0.9% 100 ML IV SCH (15:12)
[2018-08-10] MEDS: SODIUM CHLORIDE 0.45% 1,000 ML IV SCH (15:15)
[2018-08-10 18:54] LABS: Glucose,Whole Blood 194 mg/dL (75-99)
[2018-08-10 20:21] LABS: Glucose,Whole Blood 165 mg/dL (75-99)
[2018-08-10] MEDS ORDERED: FUROSEMIDE 10 MG/ML 4 ML VIAL IV ONE (20:30)
[2018-08-10] MEDS: MVI, ADULT NO.4 WITH VIT K 10 ML, TRACE (CONC-1ML/DOSE) 1 ML, PARENTERAL ELECTROLYTES 2... IV SCH ×4 (21:08)
[2018-08-10 22:52] LABS: Glucose,Whole Blood 184 mg/dL (75-99)
[2018-08-11] MEDS: PIPERACILLIN-TAZOBACTAM 3.375 GM in SODIUM CHLORIDE 0.9% 100 ML IVPB SCH ×3 (00:53→16:50)
[2018-08-11] MEDS: HYDROCORTISONE SUCCINATE 100 MG/2 ML VIAL IV SCH ×3 (00:56→16:34)
[2018-08-11 01:22] LABS: Glucose,Whole Blood 162 mg/dL (75-99)
[2018-08-11] MEDS: METOCLOPRAMIDE 5 MG/ML 2 ML VIAL IVP SCH ×4 (01:29→18:17)
[2018-08-11] MEDS: PROPOFOL 1,000 MG in EMPTY BAG 1 BAG IV SCH ×5 (01:36→20:49)
[2018-08-11 02:29] LABS: Glucose,Whole Blood 176 mg/dL (75-99)
[2018-08-11 03:46] LABS: Glucose,Whole Blood 104 mg/dL (75-99)
[2018-08-11 04:17] LABS: Glucose,Whole Blood 127 mg/dL (75-99)
[2018-08-11 04:48] LABS: ABG HCO3 29 mmol/L (21-25); ABG Oxygen Saturation 97.9 % (94-97); ABG PCO2 60 mmHg (35-45); ABG PH 7.29 (7.35-7.45); ABG PO2 100 mmHg (83-108); ABG TCO2 30 mmol/L (19-24)
[2018-08-11] MEDS ORDERED: VANCOMYCIN TROUGH DUE 1 EACH MISC MISCELLANE ONE (05:00)
[2018-08-11] MEDS: VANCOMYCIN 1,500 MG in SODIUM CHLORIDE 0.9% 250 ML IVPB SCH (06:10)
[2018-08-11 06:15] LABS: Magnesium 2.2 mg/dL (1.6-2.3)
--- NOTE | 2018-08-11 07:03 | PN ---
PROGRESS NOTE DATE OF SERVICE: 08/10/2018 REASON FOR FOLLOWUP: Abdominal sepsis. INTERVAL HISTORY: The patient is afebrile. Today, the patient overall Levophed requirement has decreased. The patient does still require a high amount of supplemental oxygen to maintain her oxygenation. NG tube suction remains to be sedated on the vent. No reported history. PHYSICAL EXAMINATION: On examination, blood pressure is 114/41 with a pulse of 95, temperature of 98. She is 95% . General description is a middle-aged female lying in bed in no distress. RESPIRATORY SYSTEM: Unlabored breathing with decreased breath sounds at the bases. No wheeze. HEART: S1, S2. Regular rate and rhythm. ABDOMEN: Soft. is currently intact. EXTREMITIES: 3+ edema of feet. LABS: Hemoglobin 8.1, white count 17.4. BUN of 37, creatinine 0.82. DIAGNOSTIC IMPRESSION AND PLAN: Patient with abdominal sepsis in this patient who did have a new fever. She was reported to have a positive culture with gram-positive cocci from the art line, however, has been advised to repeat blood cultures and remove the art line. The patient is currently covered with Vancomycin and Zosyn that will be continued for now. Will watch her clinical course closely. Overall prognosis remains to be guarded. Continue supportive care. MMODL / IJN: [id number] /
[2018-08-11] MEDS: fentaNYL (PF) 1,000 MCG in SODIUM CHLORIDE 0.9% 80 ML IV SCH (07:14)
[2018-08-11 07:17] LABS: Glucose,Whole Blood 166 mg/dL (75-99)
--- NOTE | 2018-08-11 07:38 | XR ---
EXAMINATION TYPE: XR chest 1V portable DATE OF EXAM: 08/11/2018 COMPARISON: 08/10/2018 HISTORY: Shortness of breath. TECHNIQUE: Single frontal view of the chest is obtained. FINDINGS: There is new extensive subcutaneous emphysema of the neck and chest wall. There is also qu estionable pneumomediastinum. No discrete pneumothorax is appreciated. Enteric tube is appropriately placed with its fenestrated portion just beyond the gastroesophageal junction. Endotracheal tuber ter minates proximally 4.5 cm above the suresh and although is appropriate could be advanced approximatel y 2 cm for optimal placement. Confluent opacities are increasing at the left lung base and have a central predominance although are present throughout. These are alveolar. Cardiomediastinal silhouette is within normal limits. Osseou s structures are grossly intact. Left-sided central venous catheter from a subclavian approach termin ates in the high right atrium. IMPRESSION: 1. New diffuse subcutaneous edema of the neck and chest wall and questionable pneumomediastinum. Atte ntion on follow-up exams. 2. Alveolar opacities increasing in confluence in comparison to the prior of 08/10/2018. Central predom inance favors pulmonary edema and/or pulmonary hemorrhage although findings may be superimposed upon multifocal pneumonia. Developing ARDS remains a consideration.
[2018-08-11 07:41] LABS: Calcium 7.5 mg/dL (8.4-10.2); Potassium 3.4 mmol/L (3.5-5.1)
[2018-08-11] MEDS: IPRATROPIUM-ALBUTEROL 3 ML NEB INHALATION SCH ×4 (07:46→19:27)
--- NOTE | 2018-08-11 08:19 | PN ---
PROGRESS NOTE DATE OF SERVICE: 08/10/2018 REASON FOR FOLLOWUP: Abdominal sepsis. INTERVAL HISTORY: The patient is afebrile. Today, the patient overall Levophed requirement has decreased. The patient does still requiring high amount of supplemental oxygen to maintain oxygenation. NG tube suction, remains to be sedated on the vent. No reported history. PHYSICAL EXAMINATION: On examination, blood pressure is 114/41 with a pulse of 95, temperature of 98. She is 95% General description is a middle-aged female lying in bed in no distress. RESPIRATORY SYSTEM: Unlabored breathing, with decreased breath sounds at the bases. No wheeze. HEART: S1, S2. Regular rate and rhythm. ABDOMEN: Soft. Incision is currently intact. EXTREMITIES: Some 3+ edema of feet. LABS: Hemoglobin 8.1, white count 17.4. BUN of 37, creatinine 0.82. DIAGNOSTIC IMPRESSION AND PLAN: Patient with abdominal sepsis in this patient who did have a new fever. She was reported to have a positive culture with gram-positive cocci from the art line. has been advised to repeat blood cultures and remove the art line. The patient is currently covered with Vancomycin as well as Zosyn that will be continued for now, watching the clinical course closely. Overall prognosis remains to be guarded. Continue with supportive care. MMODL / IJN: [id number] /
[2018-08-11] MEDS ORDERED: POTASSIUM CHLORIDE 40 MEQ in WATER FOR INJECTION 1 100ML.BAG IVPB STA (08:26)
--- NOTE | 2018-08-11 08:28 | P.PN ---
Subjective Progress Note Date: 08/11/18 Principal diagnosis: Patient is a 58-year-old female with no significant past medical history o who presented to the emergency department at the recommendations of her PCP for dehydration, nausea, and vomiting. In the emergency department she underwent an extensive evaluation. Computed tomography scan of the abdomen showed diverticular abscess with partial bowel obstruction she was admitted for further management. Initial laboratory analysis showed a sodium of 132, carbon dioxide 21, and a negative urinalysis. She was started on IV fluids, antibiotics and was admitted. General surgery was consulted. Patient initially wanted conservative management did not want surgery. Interventional radiology was consulted and she underwent abscess ranges placement of percutaneous drain on 07/28/18. She was found to have an elevated PTT and hematology was consulted. They felt that this was likely due to poor nutritional intake and ordered additional vitamin K. Her PT INR normalized with additional vitamin K. She was seen by ID who discontinue meropenem and started her on Zosyn. She had initially been progressing well. Overnight on she developed increasing pain and nausea. She started requiring IV narcotics for treatment of her pain. She then became tachycardic. Morning blood work on 07/30 showed a depressed white blood cell count at 2.5, and carbon dioxide of 12. Stat CT with IV contrast as well as a stat lactic acid and a [address] abdomen and pelvis showed free air. Case discussed with Dr. Jacobson and patient was taken urgently to the operating room for ex-lap due to perforated viscus. During the procedure, the patient was noted to have fecal peritonitis and underwent a sigmoid colectomy with end colostomy. She was transferred to the ICU post-operatively and was started on IV pressors. The patient was extubated on 07/31/18. However, she continued to require Levophed. ID recommended the patient to be switched to Unasyn and Flagyl. A random cortisol level was drawn and was 22, for which patient was started on hydrocortisone for suspected adrenal insufficiency. On 08/02 the patient developed respiratory distress and was re-intubated. She was also noted to have L thumb discoloration with history of art line placement on that wrist. Vascular surgery was consulted and did not recommend urgent surgical intervention. Her pressors were able to taken off momentarily on 08/06 but required to be restarted on 08/07. She had a dusky appearance to the wound edges and was taken back to the OR on 08/09 and underwent small bowel resection with abdominal wound debridement. patiently currently on mechanical ventilator and sedated on propofol also on fentanyl drip for pain and comfort, pressors weaned off last night and patient is normotensive. Continues to be afebrile, anasarca is significantly improved today. Labs pending. Objective - Vital Signs Vital signs: Vital Signs Temp 97.4 F L 08/10/18 16:00 Pulse 84 08/11/18 08:06 Resp 30 H 08/11/18 07:00 BP 93/50 08/11/18 02:00 Pulse Ox 100 08/11/18 07:00 Intake & Output 08/10/18 08/11/18 08/11/18 18:59 06:59 18:59 Intake Total 6003.427 7086.373 361.571 Output Total 1660 2325 60 Balance -36.590 -472.627 301.571 Weight 79.8 kg Intake: IV 1531 348 281 Anidulafungin 100 mg In 130 Sodium Chloride 0.9% 100 ml @ 84 mls/hr IVPB DAILY JESSICA Rx#:[id number] Fentanyl 55 60 5 Mvi, Adult No.4 with Vit 360 K 10 ml Trace (Conc-1Ml/ Dose) 1 ml Potassium Chloride 40 meq Potassium Phosphate 10 mmol In Amino Acid 5%-D15w+Lytes* E* 1,000 ml @ 45 mls/hr IV .Q23H JESSICA Rx#: [id number] Pressure bag 66 48 6 Sodium Chloride 0.45% 1, 220 240 20 000 ml @ 20 mls/hr IV . Q24H JESSICA Rx#:[id number] Vancomycin 500 250 zosyn 200 Intake, IV Titration 92.410 1504.373 80.571 Amount Albumin Human 25% 50 ml 100 In Empty Bag 1 bag @ 100 mls/hr IVPB Q1H JESSICA Rx#: [id number] Insulin Regular 100 unit 13.766 22.855 In Sodium Chloride 0.9% 100 ml @ Per Protocol IV .Q0M JESSICA Rx#:[id number] Mvi, Adult No.4 with Vit 1031 K 10 ml Trace (Conc-1Ml/ Dose) 1 ml Parenteral Electrolytes 20 ml In Amino Acid 5%-D15w 1,000 ml @ 45 mls/hr IV . [id number] JESSICA Rx#:[id number] Norepinephrine 16 mg In 62.562 Sodium Chloride 0.9% 250 ml @ Titrate IV .Q0M JESSICA Rx#:[id number] Norepinephrine 32 mg In 7.197 Sodium Chloride 0.9% 250 ml @ 0.1 MCG/KG/MIN 4.28 mls/hr IV .Q24H JESSICA Rx#: [id number] Propofol 1,000 mg In 78.644 280.759 Empty Bag 1 bag @ Titrate IV .Q0M JESSICA Rx#: [id number] fentaNYL (PF) 1,000 mcg 80.571 In Sodium Chloride 0.9% 80 ml @ 0.62 MCG/KG/HR 5. 02 mls/hr IV .[id number] JESSICA Rx#:[id number] Output: Gastric Drainage 150 Drainage 210 Right Abdomen 210 Urine 1250 2075 60 Stool 200 100 Other: Voiding Method Indwelling Catheter Indwelling Catheter # Voids 2 ABP, PAP, CO, CI - Last Documented Arterial Blood Pressure 117/37 - Exam Constitutional: Intubated currently on mechanical ventilator, OG/OT tubes in place Eyes: Anicteric sclerae, moist conjunctiva, no lid-lag, PERRLA ENMT: NC/AT,Oropharynx clear, no erythema, exudates Neck:Supple, FROM, no masses, or JVD, No carotid bruits; No thyromegaly Lungs: Diminished bilaterally with some bibasilar crackles, no wheezes Cardiovascular: Heart regular in rate and rhythm, No murmurs, gallops, or rubs no peripheral edema Abdominal: Soft Nontender, abdominal wound VAC in place with serous drainage evidence of necrosis, functioning colostomy and ileostomy with dark fluid collection in both, hypoactive bowel sounds Skin: Multiple tears with seepage of serous fluid due to anasarca Extremities: Left thumb violaceously discolored dark, unable to palpate Radial pulse which is heard with Doppler Psychiatric: Alert and oriented to person, place and time, Appropriate affect Intact judgement - Labs CBC & Chem 7: 08/10/18 05:45 08/11/18 04:48 Labs: Abnormal Lab Results - Last 24 Hours (Table) 08/10/18 08/10/18 08/10/18 Range/Units 08:08 10:48 12:46 ABG pH (7.35-7.45) ABG pCO2 (35-45) mmHg ABG HCO3 (21-25) mmol/L ABG Total CO2 (19-24) mmol/L ABG O2 Saturation (94-97) % Potassium (3.5-5.1) mmol/L Chloride (98-107) mmol/L BUN (7-17) mg/dL Glucose (74-99) mg/dL POC Glucose (mg/dL) 167 H 155 H 176 H (75-99) mg/dL Calcium (8.4-10.2) mg/dL Vancomycin Trough ug/mL 08/10/18 08/10/18 08/10/18 Range/Units 14:54 18:50 20:17 ABG pH (7.35-7.45) ABG pCO2 (35-45) mmHg ABG HCO3 (21-25) mmol/L ABG Total CO2 (19-24) mmol/L ABG O2 Saturation (94-97) % Potassium (3.5-5.1) mmol/L Chloride (98-107) mmol/L BUN (7-17) mg/dL Glucose (74-99) mg/dL POC Glucose (mg/dL) 181 H 194 H 165 H (75-99) mg/dL Calcium (8.4-10.2) mg/dL Vancomycin Trough ug/mL 08/10/18 08/11/18 08/11/18 Range/Units 22:33 01:15 02:15 ABG pH (7.35-7.45) ABG pCO2 (35-45) mmHg ABG HCO3 (21-25) mmol/L ABG Total CO2 (19-24) mmol/L ABG O2 Saturation (94-97) % Potassium (3.5-5.1) mmol/L Chloride (98-107) mmol/L BUN (7-17) mg/dL Glucose (74-99) mg/dL POC Glucose (mg/dL) 184 H 162 H 176 H (75-99) mg/dL Calcium (8.4-10.2) mg/dL Vancomycin Trough ug/mL 08/11/18 08/11/18 08/11/18 Range/Units 03:43 04:14 04:42 ABG pH 7.29 L (7.35-7.45) ABG pCO2 60 H (35-45) mmHg ABG HCO3 29 H (21-25) mmol/L ABG Total CO2 30 H (19-24) mmol/L ABG O2 Saturation 97.9 H (94-97) % Potassium (3.5-5.1) mmol/L Chloride (98-107) mmol/L BUN (7-17) mg/dL Glucose (74-99) mg/dL POC Glucose (mg/dL) 104 H 127 H (75-99) mg/dL Calcium (8.4-10.2) mg/dL Vancomycin Trough ug/mL 08/11/18 08/11/18 08/11/18 Range/Units 04:48 04:48 07:03 ABG pH (7.35-7.45) ABG pCO2 (35-45) mmHg ABG HCO3 (21-25) mmol/L ABG Total CO2 (19-24) mmol/L ABG O2 Saturation (94-97) % Potassium 3.4 L (3.5-5.1) mmol/L Chloride 112 H (98-107) mmol/L BUN 40 H (7-17) mg/dL Glucose 153 H (74-99) mg/dL POC Glucose (mg/dL) 166 H (75-99) mg/dL Calcium 7.5 L (8.4-10.2) mg/dL Vancomycin Trough 30.4 H* ug/mL Microbiology - Last 24 Hours (Table) 08/09/18 16:50 Urine Culture - Final Urine,Voided 08/09/18 16:50 Blood Culture Gram Stain - Preliminary Blood Blood Culture - Preliminary Coagulase Negative Staph 08/09/18 16:50 Blood Culture - Preliminary Blood No Growth after 24 hours 08/09/18 16:50 Blood Culture - Final Blood Assessment and Plan Assessment: Septic shock * Continue with stress dose of Solu-Cortef, levophed weaned off with heart rate normal sinus rhythm in the 80s * Appears intravascularly euvolemic with significant improvement off the third spacing after receiving albumin followed by Lasix * Continue with antibiotic regimen of vancomycin and Zosyn and Eraxis * Echocardiogram showed hyperdynamic LV function with an EF of greater than 70 Diverticulitis with abscess and bowel perforation with septic shock s/p sigmoid colectomy, small bowel resection X 2 and appendectomy and debridement of wound necrosis - additional intraabdominal abscess - Surgery recs -Appreciate ID recommendations Acute hypoxemic respiratory failure due ARDS with possible DAD secondary to septic shock - vent management per ICU team, patient with improved oxygenation on today's ABG - CXR reviewed suggesting questionable pneumomediastinum superimposed on possible multifocal pneumonia - Consider trach in the next few days if no improvement and patient stable Anasarca * Diffuse third spacing much improved appears euvolemic, patient with excellent response and diuresis with pretreated abdomen followed by Lasix * We'll hold Lasix and albumin today * Continues to be hypoalbuminemic ARDS * secondary to septic shock from intra-abdominal infection/abscess/peritonitis -Management per pulmonary - treatment of infections - PEEP increased, low tidal volume - critical care recs Anemia, dilutational due to prolonged ICU stay - stable - follow CBC - transfuse for HgB <6 Transaminitis - likely due to TPN and hypoperfusion from shock liver - follow liver enzymes Relative adrenal insufficiency - stress dose steroids, wean per pulm/cc recs Hyperglycemia due to steroids and TPN - prediabetes - A1C 6.1, diet modification on discharge - follow BS and continue insulin gtt Post-op ileus - on TPN - NGT to suction - general surgery recs Severe Protein calorie malnutrition - on TPN Left thumb ischemia secondary to radial artery occlusion - vascular surgery recs appreciated, conservative management at this time. - heparin gtt held per surgery Thromboctypenia, reactive to sepsis, improving - follow CBC - HIT AB negative - Oncology recs appreciated AST elevation - monitor on TPN and ABX Hyponatremia, hypokalemia, hypophosphatemia, and hypomagnesemia resolved Coagulopathy, resolved Anion Gap metabolic acidosis, resolved lactic acidosis, improved DVT prophylaxis: Heparin held by general surgery Anticipated discharge: undetermined Place:[facility] A total of 45 minutes, complex care of this patient. (1) Sepsis Current Visit: Yes Status: Acute Code(s): A41.9 - SEPSIS, UNSPECIFIED ORGANISM SNOMED Code(s): 61935685 (2) Colonic diverticular abscess Current Visit: Yes Status: Acute Code(s): K57.20 - DVTRCLI OF LG INT W PERFORATION AND ABSCESS W/O BLEEDING SNOMED Code(s): 967272895 (3) Partial bowel obstruction Current Visit: Yes Status: Acute Code(s): K56.600 - PARTIAL INTESTINAL OBSTRUCTION, UNSPECIFIED TO CAUSE SNOMED Code(s): 46554662 (4) Abdominal pain Current Visit: Yes Status: Acute Code(s): R10.9 - UNSPECIFIED ABDOMINAL PAIN SNOMED Code(s): 03610855 (5) Coagulopathy Current Visit: Yes Status: Resolved Code(s): D68.9 - COAGULATION DEFECT, UNSPECIFIED SNOMED Code(s): 19906597 (6) Constipation Current Visit: Yes Status: Acute Code(s): K59.00 - CONSTIPATION, UNSPECIFIED SNOMED Code(s): 89011919
[2018-08-11 08:38] LABS: Glucose,Whole Blood 156 mg/dL (75-99)
[2018-08-11] MEDS: PANTOPRAZOLE 40 MG/10 ML VIAL IVP SCH (08:42)
[2018-08-11] MEDS: CHLORHEXIDINE GLUCONATE 15 ML CUP MUCOUS MEM SCH ×2 (09:01→20:52)
[2018-08-11] MEDS: ANIDULAFUNGIN 100 MG in SODIUM CHLORIDE 0.9% 100 ML IVPB SCH (09:01)
[2018-08-11 09:09] LABS: Anisocytosis Slight; Basophils # (A) 0.1 k/uL (0-0.2); Basophils % (A) 1 %; Eosinophils % (A) 0 %; Hypochromasia Marked; Lymphocytes # (A) 0.7 k/uL (1.0-4.8); Lymphocytes % (A) 5 %; MCH 28.4 pg (25.0-35.0); MCHC 29.9 g/dL (31.0-37.0); MCV 94.8 fL (80.0-100.0); Mean Platelet Volume 10.3; Monocytes # (A) 0.3 k/uL (0-1.0); Monocytes % (A) 2 %; Neutrophils # (A) 11.5 k/uL (1.3-7.7); Neutrophils % (A) 91 %; Platelet Count 71 k/uL (150-450); RBC 1.83 m/uL (3.80-5.40); WBC 12.7 k/uL (3.8-10.6)
[2018-08-11 09:14] LABS: HCT 17.4 % (34.0-46.0); HGB 5.2 gm/dL (11.4-16.0)
[2018-08-11 09:24] LABS: ALT 53 U/L (9-52); AST 99 U/L (14-36); Albumin 1.7 g/dL (3.5-5.0); Alkaline Phosphatase 134 U/L (38-126); Anion Gap 3 mmol/L; Blood Urea Nitrogen 41 mg/dL (7-17); Calcium 7.5 mg/dL (8.4-10.2); Carbon Dioxide 29 mmol/L (22-30); Chloride 111 mmol/L (98-107); Glucose 138 mg/dL (74-99); Potassium 3.2 mmol/L (3.5-5.1); Sodium 143 mmol/L (137-145); Total Bilirubin 0.6 mg/dL (0.2-1.3); Total Protein 3.6 g/dL (6.3-8.2)
[2018-08-11] MEDS: POTASSIUM CHLORIDE 20 MEQ in WATER FOR INJECTION 1 100ML.BAG IVPB SCH ×2 (10:25→12:35)
--- NOTE | 2018-08-11 11:38 | P.PN ---
Subjective Progress Note Date: 08/11/18 A 58-year-old female patient was being seen in the follow-up in the intensive care unit. The patient has a complicated history of perforated diverticulitis with abscess formation and the patient has undergone expiratory laparotomy with sigmoid colectomy and colostomy and appendicectomy and the patient is postop day #8. The patient's course was complicated by development of sepsis which is secondary to intra-abdominal source. A previous fine-needle aspirate of the abdominal abscesses yielded gram-negative and anaerobes and the patient is currently on broad-spectrum antibiotics including a combination of Unasyn and Flagyl. The patient also developed acute hypoxic respiratory failure secondary to ARDS. The patient to be reintubated on 08/01/2018 and the patient has been intubated since. In terms of her condition, the patient remains on a mechanical ventilator on assist control mode. Today the tidal volume of 350, FiO2 of 60%, PEEP of 8 and a respiratory rate of 22. Chest x-ray showed diffuse bilateral pulmonary infiltrates. The lines are in good location. ET tube is in a good location. CVP is at 10. The morning blood gases showed a pH of 7.39 with a pCO2 of 48 and pO2 of 74 and this was on FiO2 of 60%. No significant orotracheal secretions. From the neurologic standpoint, the patient is sedated with Diprivan and she is calm and comfortable and success with the mechanical ventilator. From the hemodynamic standpoint, the patient CVP is at 10. The patient was on pressors and the patient was and 6 mics of norepinephrine infusion for hemodynamic support.. She has however developed significant amount of edema in all 4 extremities patient upper extremities bilaterally and she will benefit from diuresis. She is on TPN for nutritional support. She is receiving TPN through the triple-lumen catheter. The patient is still sedated with Diprivan and the Diprivan is running at 45 mics per KG per minute and the patient on insulin drip for blood sugar control. In terms of her abdominal finding, the patient has developed some necrosis along the open wound edges bilaterally. The wound VAC is in place. There is considerable amount of output through the wound VAC and output is quite dark and cloudy. Her white cell count is at 9.9. Her serum albumin is down to 1.4 with a total protein of 3.3. Renal function is stable for now. On 08/08/2018, the patient remains critically ill. The plan is to take this patient to the operating room for another abdominal washout and debridement knowing that she had developed some necrosis along the wound surface. The wound VAC was stopped yesterday. The patient is sedated with Diprivan and she is calm and comfortable. The prednisone running at 20 mics. She remains on a mechanical ventilator. This morning she was a tidal volume of 350 with an FiO2 of 60% and a PEEP of 8 and the respiratory rate of 22. As mentioned earlier, the patient is an ARDS with diffuse but the pulmonary infiltrates and there is interval worsening in her oxygenation and in the bilateral pulmonary infiltrates seen on today's chest x-ray. The blood gases from this morning showed a pH of 42 with a pCO2 of 47 and pO2 of 65.. Based on further drop in the pulse ox, increase the PEEP up to 12 L and it his FiO2 up to 70%. A repeat blood gases is pending and will need to fix her oxygenation prior to this patient going to the operating room. The patient is still on pressors. The patient has responded to Lasix 20 mg IV every 12 hours and the neck fluid balance is negative over the past 24 hours. She is producing adequate amount of urine output. She continues to have extensive edema in the upper and lower extremities. The left thumb is still necrotic. The patient is still requiring pressors and the dose being titrated to keep a mean artery pressure above 65. She is in the order of 5-6 g of norepinephrine infusion. The patient is on Diprivan which is running at 45 mg per KG per minute. She is also on insulin drip for blood sugar control. The wound VAC is still draining extensively, and order of probably 1 L on a 24-hour period. The patient is severely hypoproteinemic and hypoalbuminemic despite being on TPN for discharge and support. Antibiotic coverage remains unchanged. The patient remains on stress dose hydrocortisone. On today's evaluation of 08/09/2008 Seeing this patient for a follow-up. The patient is doing very poorly. Events occurring yesterday was noted. The patient was taken again to the operating room and the patient was found to have residual abscess. She underwent expiratory laparotomy, small bowel resection with ileostomy and drainage of intraperitoneal localized abscess near the previous small bowel anastomosis. There was also ongoing with infection and was debrided. Postop the patient was brought back to the intensive care units. The patient is still sedated with Diprivan which is running at 35 mics. The patient was somewhat asynchronous with the mechanical ventilator. I thought this was a pain related problem and for that reason the patient was given a dose of fentanyl 50 g to which she responded nicely and she'll be started also on a fentanyl drip. She is on a mechanical ventilator on assist control mode. As mentioned earlier in her chest x-ray showing diffuse but the pulmonary infiltrates consistent with ARDS. I was having some issues with oxygen desaturation. The PEEP is currently at 14 with an FiO2 of 85%. She is tidal volume is at 350 and the rate is at 24. The peak airway pressures around 34 with metastatic a pressure of around 28. Chest x-ray findings are essentially stable with diffuse bilateral pulmonary infiltrates. ET tube is in a good location. The most recent blood gas showed a pH of 7.35 with a pCO2 of 52 and pO2 of 57. The patient is on broad-spectrum antibiotics. Antibiotic coverage includes a combination of Zosyn and vancomycin and Anidulafungin. The patient is still requiring pressors. Norepinephrine infusion is running at 8 g per KG per minute. Urine output is adequate for now and the patient is producing more than 25-30 mL of urine output on an hourly basis. She continues to have extensive edema in all 4 extremities. She has weeping and fluid seeping from her skin surface in lower extremities and arms. She has areas of skin break in lower extremities and appropriate dressing has been applied. The abdominal wound is packed. The patient has some drainage in the colostomy back and some drainage also in the ileostomy bag. She is receiving TPN for the chest support which is being provided to her through the left subclavian triple-lumen catheter. Remains on stress dose hydrocortisone. Neck fluid balance over the past 24 hours has been +192 mL. On 08/10/2018, the patient remains intubated on a mechanical ventilator. She is sedated with Diprivan and fentanyl drip was added yesterday for comfort and pain reasons. The throat is running at 35 mics and fentanyl is at 50 mics. The patient is well sedated. She is a mechanical ventilator. Her FiO2 is up to 85% with a 14 of PEEP with a tidal volume of 350. Respirations are 24. The patient remains an ARDS with diffuse bilateral pulmonary infiltrates. I reviewed the blood gases from this morning and the blood gases showed a pH of 7.2 with episode of 68 and pO2 of 75. Based on that I think his respiratory rate up to 30. Chest x-ray showing bilateral pulmonary infiltrates. The findings are essentially stable compared to yesterday. ET tube is in a good location. The patient remains pressor dependent. She is on 2 mics of norepinephrine infusion at this point in time. Echocardiogram was done and patient is hyperdynamic with an ejection fraction of 70%. No evidence of the valvular abnormalities. She has no significant pulmonary hypertension. She is afebrile. Antibiotics have been adjusted and the patient is currently on a combination of Zosyn, vancomycin and Eraxis. The patient is profoundly hypoproteinemic and the is third spacing and fluid is seeping from the skin surface both in the upper and lower extremities and fluid is also seeping from the one surface noted the patient has an open abdominal wounds. Ileostomy and colostomy sites are unchanged and there is some dark material collecting in the bags. No major change in her condition compared to yesterday. She seems the more symptoms the mechanical ventilator. A comfort level is improved with the addition of fentanyl. The neck fluid balance is less than 1.5 L over the past 24 hours. On 08/11/2018, the patient remains on a mechanical ventilator. There has been some changes in her physical appearance of the patient's face and neck and anterior chest has been swollen. The patient developed subcutaneous emphysema and this has been confirmed on a chest x-ray that was done earlier this morning. No evidence of any pneumothorax. No evidence of any significant pneumomediastinum. This isn't anticipated complication of mechanical ventilation ARDS. I still have the patient FiO2 of 85% this morning with a PEEP of 14 and tidal volume of 350 with a respiratory rate of 24. Peak pressures around 30 for metastatic air pressure of around 28-29. Chest x-ray findings is showing extensive subcutaneous emphysema. ET tube is in a good location. The patient is still oxygenating and ventilating adequately knowing that the morning blood gas showed a pH of 7.29 with a pCO2 of 60 and pO2 of 100 and this was on FiO2 of 85%. Hemodynamically, the patient was able to come off pressors. She is maintaining her on blood pressure. Nevertheless hemoglobin dropped down to 5.2 without evidence of any external bleeding and the patient will be undergoing packed RBC transfusion a total of 2 today. She is still covered with broad-spectrum antibiotics with a combination of Eraxis, Zosyn and vancomycin. No new cultures are available it with exception of a coagulase- negative staph that was identified in the blood. The patient is afebrile. She is not tachycardic. She is maintaining a low blood pressure that she is off pressors. She is receiving TPN for nutritional support. She obviously has a extensive third spacing and seepage of fluid from the skin surface all over. Her serum albumin is down to 1.7. She remains on stress dose hydrocortisone. In terms of sedation, I felt that she is slightly oversedated on today's evaluation. I asked to cut down the Diprivan which is running at 35 g per KG per minute pH is also on fentanyl drip at 50 mics . The abdominal wound is unchanged. Local dressing and wound care is being applied. Ileostomy and colostomy sites are showing some liquid material and the viable on today's evaluation. Objective - Vital Signs Vital signs: Vital Signs Temp 96 F L 08/11/18 08:00 Pulse 87 08/11/18 11:20 Resp 30 H 08/11/18 10:00 BP 93/50 08/11/18 02:00 Pulse Ox 94 L 08/11/18 10:00 Intake & Output 08/10/18 08/11/18 08/11/18 18:59 06:59 18:59 Intake Total 3708.432 5187.027 819.571 Output Total 1660 2325 450 Balance -36.590 -457.973 369.571 Weight 79.8 kg 79.8 kg Intake: IV 1531 348 739 Anidulafungin 100 mg In 130 130 Sodium Chloride 0.9% 100 ml @ 84 mls/hr IVPB DAILY JESSICA Rx#:[id number] Fentanyl 55 60 20 Mvi, Adult No.4 with Vit 135 K 10 ml Trace (Conc-1Ml/ Dose) 1 ml In Amino Acid 5%-D15w+Lytes*E* 1,000 ml @ 30 mls/hr IV .Q24H JESSICA Rx#:[id number] Mvi, Adult No.4 with Vit 360 K 10 ml Trace (Conc-1Ml/ Dose) 1 ml Potassium Chloride 40 meq Potassium Phosphate 10 mmol In Amino Acid 5%-D15w+Lytes* E* 1,000 ml @ 45 mls/hr IV .Q23H JESSICA Rx#: [id number] Pressure bag 66 48 24 Sodium Chloride 0.45% 1, 220 240 80 000 ml @ 20 mls/hr IV . Q24H JESSICA Rx#:[id number] Vancomycin 500 250 zosyn 200 100 Intake, IV Titration 92.410 1519.027 80.571 Amount Albumin Human 25% 50 ml 100 In Empty Bag 1 bag @ 100 mls/hr IVPB Q1H JESSICA Rx#: [id number] Insulin Regular 100 unit 13.766 37.446 In Sodium Chloride 0.9% 100 ml @ Per Protocol IV .Q0M JESSICA Rx#:[id number] Mvi, Adult No.4 with Vit 1031 K 10 ml Trace (Conc-1Ml/ Dose) 1 ml Parenteral Electrolytes 20 ml In Amino Acid 5%-D15w 1,000 ml @ 45 mls/hr IV . [id number] JESSICA Rx#:[id number] Norepinephrine 16 mg In 62.562 Sodium Chloride 0.9% 250 ml @ Titrate IV .Q0M JESSICA Rx#:[id number] Norepinephrine 32 mg In 7.260 Sodium Chloride 0.9% 250 ml @ 0.1 MCG/KG/MIN 4.28 mls/hr IV .Q24H JESSICA Rx#: [id number] Propofol 1,000 mg In 78.644 280.759 Empty Bag 1 bag @ Titrate IV .Q0M JESSICA Rx#: [id number] fentaNYL (PF) 1,000 mcg 80.571 In Sodium Chloride 0.9% 80 ml @ 0.62 MCG/KG/HR 5. 02 mls/hr IV .[id number] JESSICA Rx#:[id number] Output: Gastric Drainage 150 Drainage 210 Right Abdomen 210 Urine 1250 2075 350 Stool 200 100 100 Other: Voiding Method Indwelling Catheter Indwelling Catheter # Voids 2 2 ABP, PAP, CO, CI - Last Documented Arterial Blood Pressure 176/62 - Exam Gen. appearance the patient is intubated, the patient has developed extensive facial neck upper chest and upper extremity swelling secondary to subcutaneous emphysema development a complication of mechanical ventilation. The patient is sedated and the patient is on the mechanical ventilator. Orogastric and orotracheal tube are both in place. Head exam was generally normal. There was no scleral icterus or corneal arcus. Mucous membranes were moist. Neck was supple and without jugular venous distension, thyromegaly, or carotid bruits. Carotids were easily palpable bilaterally. There was no adenopathy. The patient has a triple lumen catheter in the left subclavian. The patient also has orogastric and orotracheal tube. Lungs are diminished bilaterally and there is some few basilar crackles heard in the mid and lower lung aguilera bilaterally. No wheezing. Cardiac exam revealed the PMI to be normally situated and sized. The rhythm was regular and no extrasystoles were noted during several minutes of auscultation. The first and second heart sounds were normal and physiologic splitting of the second heart sound was noted. There were no murmurs, rubs, clicks, or gallops. Abdomen exam is soft and the abdominal wound VAC is in place with serous drainage. There is evidence of necrosis of the subcutaneous tissue along the wound borders bilaterally. The patient has a functioning colostomy. There is minimal amount of output and the tissue still viable. Bowel sounds are hypoactive. The patient has an ileostomy and the patient has a colostomy. There is some liquid the dark material collecting and both bags. Extremities are showing extensive edema in all 4 extremities pressure in the upper extremities bilaterally. Neurologic the patient is sedated, comfortable not in acute distress. Exertional skin shows that the skin is poorly perfused. There is some moderate amount of skin weeping and upper extremities bilaterally. Abdominal wound is packed. The patient continues to have extensive amount of swelling and skin weeping and breakdown and this is all over. - Labs CBC & Chem 7: 08/11/18 08:30 08/11/18 08:30 Labs: Abnormal Lab Results - Last 24 Hours (Table) 08/10/18 08/10/18 08/10/18 Range/Units 12:46 14:54 18:50 WBC (3.8-10.6) k/uL RBC (3.80-5.40) m/uL Hgb (11.4-16.0) gm/dL Hct (34.0-46.0) % MCHC (31.0-37.0) g/dL RDW (11.5-15.5) % Plt Count (150-450) k/uL Neutrophils # (1.3-7.7) k/uL Lymphocytes # (1.0-4.8) k/uL ABG pH (7.35-7.45) ABG pCO2 (35-45) mmHg ABG HCO3 (21-25) mmol/L ABG Total CO2 (19-24) mmol/L ABG O2 Saturation (94-97) % Potassium (3.5-5.1) mmol/L Chloride (98-107) mmol/L BUN (7-17) mg/dL Glucose (74-99) mg/dL POC Glucose (mg/dL) 176 H 181 H 194 H (75-99) mg/dL Calcium (8.4-10.2) mg/dL AST (14-36) U/L ALT (9-52) U/L Alkaline Phosphatase (38-126) U/L Total Protein (6.3-8.2) g/dL Albumin (3.5-5.0) g/dL Vancomycin Trough ug/mL Crossmatch 08/10/18 08/10/18 08/11/18 Range/Units 20:17 22:33 01:15 WBC (3.8-10.6) k/uL RBC (3.80-5.40) m/uL Hgb (11.4-16.0) gm/dL Hct (34.0-46.0) % MCHC (31.0-37.0) g/dL RDW (11.5-15.5) % Plt Count (150-450) k/uL Neutrophils # (1.3-7.7) k/uL Lymphocytes # (1.0-4.8) k/uL ABG pH (7.35-7.45) ABG pCO2 (35-45) mmHg ABG HCO3 (21-25) mmol/L ABG Total CO2 (19-24) mmol/L ABG O2 Saturation (94-97) % Potassium (3.5-5.1) mmol/L Chloride (98-107) mmol/L BUN (7-17) mg/dL Glucose (74-99) mg/dL POC Glucose (mg/dL) 165 H 184 H 162 H (75-99) mg/dL Calcium (8.4-10.2) mg/dL AST (14-36) U/L ALT (9-52) U/L Alkaline Phosphatase (38-126) U/L Total Protein (6.3-8.2) g/dL Albumin (3.5-5.0) g/dL Vancomycin Trough ug/mL Crossmatch 08/11/18 08/11/18 08/11/18 Range/Units 02:15 03:43 04:14 WBC (3.8-10.6) k/uL RBC (3.80-5.40) m/uL Hgb (11.4-16.0) gm/dL Hct (34.0-46.0) % MCHC (31.0-37.0) g/dL RDW (11.5-15.5) % Plt Count (150-450) k/uL Neutrophils # (1.3-7.7) k/uL Lymphocytes # (1.0-4.8) k/uL ABG pH (7.35-7.45) ABG pCO2 (35-45) mmHg ABG HCO3 (21-25) mmol/L ABG Total CO2 (19-24) mmol/L ABG O2 Saturation (94-97) % Potassium (3.5-5.1) mmol/L Chloride (98-107) mmol/L BUN (7-17) mg/dL Glucose (74-99) mg/dL POC Glucose (mg/dL) 176 H 104 H 127 H (75-99) mg/dL Calcium (8.4-10.2) mg/dL AST (14-36) U/L ALT (9-52) U/L Alkaline Phosphatase (38-126) U/L Total Protein (6.3-8.2) g/dL Albumin (3.5-5.0) g/dL Vancomycin Trough ug/mL Crossmatch 08/11/18 08/11/18 08/11/18 Range/Units 04:42 04:48 04:48 WBC (3.8-10.6) k/uL RBC (3.80-5.40) m/uL Hgb (11.4-16.0) gm/dL Hct (34.0-46.0) % MCHC (31.0-37.0) g/dL RDW (11.5-15.5) % Plt Count (150-450) k/uL Neutrophils # (1.3-7.7) k/uL Lymphocytes # (1.0-4.8) k/uL ABG pH 7.29 L (7.35-7.45) ABG pCO2 60 H (35-45) mmHg ABG HCO3 29 H (21-25) mmol/L ABG Total CO2 30 H (19-24) mmol/L ABG O2 Saturation 97.9 H (94-97) % Potassium 3.4 L (3.5-5.1) mmol/L Chloride 112 H (98-107) mmol/L BUN 40 H (7-17) mg/dL Glucose 153 H (74-99) mg/dL POC Glucose (mg/dL) (75-99) mg/dL Calcium 7.5 L (8.4-10.2) mg/dL AST (14-36) U/L ALT (9-52) U/L Alkaline Phosphatase (38-126) U/L Total Protein (6.3-8.2) g/dL Albumin (3.5-5.0) g/dL Vancomycin Trough 30.4 H* ug/mL Crossmatch 08/11/18 08/11/18 08/11/18 Range/Units 07:03 08:30 08:30 WBC 12.7 H (3.8-10.6) k/uL RBC 1.83 L (3.80-5.40) m/uL Hgb 5.2 L* D (11.4-16.0) gm/dL Hct 17.4 L* (34.0-46.0) % MCHC 29.9 L (31.0-37.0) g/dL RDW 17.0 H (11.5-15.5) % Plt Count 71 L (150-450) k/uL Neutrophils # 11.5 H (1.3-7.7) k/uL Lymphocytes # 0.7 L (1.0-4.8) k/uL ABG pH (7.35-7.45) ABG pCO2 (35-45) mmHg ABG HCO3 (21-25) mmol/L ABG Total CO2 (19-24) mmol/L ABG O2 Saturation (94-97) % Potassium 3.2 L (3.5-5.1) mmol/L Chloride 111 H (98-107) mmol/L BUN 41 H (7-17) mg/dL Glucose 138 H (74-99) mg/dL POC Glucose (mg/dL) 166 H (75-99) mg/dL Calcium 7.5 L (8.4-10.2) mg/dL AST 99 H (14-36) U/L ALT 53 H (9-52) U/L Alkaline Phosphatase 134 H (38-126) U/L Total Protein 3.6 L (6.3-8.2) g/dL Albumin 1.7 L (3.5-5.0) g/dL Vancomycin Trough ug/mL Crossmatch 08/11/18 08/11/18 Range/Units 08:35 09:50 WBC (3.8-10.6) k/uL RBC (3.80-5.40) m/uL Hgb (11.4-16.0) gm/dL Hct (34.0-46.0) % MCHC (31.0-37.0) g/dL RDW (11.5-15.5) % Plt Count (150-450) k/uL Neutrophils # (1.3-7.7) k/uL Lymphocytes # (1.0-4.8) k/uL ABG pH (7.35-7.45) ABG pCO2 (35-45) mmHg ABG HCO3 (21-25) mmol/L ABG Total CO2 (19-24) mmol/L ABG O2 Saturation (94-97) % Potassium (3.5-5.1) mmol/L Chloride (98-107) mmol/L BUN (7-17) mg/dL Glucose (74-99) mg/dL POC Glucose (mg/dL) 156 H (75-99) mg/dL Calcium (8.4-10.2) mg/dL AST (14-36) U/L ALT (9-52) U/L Alkaline Phosphatase (38-126) U/L Total Protein (6.3-8.2) g/dL Albumin (3.5-5.0) g/dL Vancomycin Trough ug/mL Crossmatch See Detail Microbiology - Last 24 Hours (Table) 08/09/18 16:50 Urine Culture - Final Urine,Voided 08/09/18 16:50 Blood Culture Gram Stain - Preliminary Blood Blood Culture - Preliminary Coagulase Negative Staph 08/09/18 16:50 Blood Culture - Preliminary Blood No Growth after 24 hours 08/09/18 16:50 Blood Culture - Final Blood Assessment and Plan Plan: Assessment 1 complicated diverticular abscess with bowel perforation. The patient is also expiratory laparotomy, sigmoid colectomy and ostomy appendectomy. The patient is postop day #12. The patient had another expiratory laparotomy where an abscess was found next to the small bowel resection area and it was drained. The patient underwent further small bowel resection and diverting ileostomy. One debridement was also done. Patient is postop day #3 following the reexploration laparotomy. On today's evaluation the patient still on TPN for nutritional support. The patient is hemodynamic is off pressors. She is still sedated with a combination of fentanyl and Diprivan. Overall doing poorly. Developed ARDS and subcutaneous emphysema, a complication of mechanical ventilation in a patient with ARDS. 2 sepsis secondary to abdominal infection related to a complicated diverticular abscess. The patient has gram-negative/E. coli and Beta Strep and Anaerobes , and based on the most recent findings, the antibiotics have been adjusted to include a combination of Zosyn and vancomycin and Eraxis. The patient was taken off the pressors and the patient is maintaining his own blood pressure for now. 3 Shock Secondary to intra-abdominal sepsis and the patient currently is off pressors.. The echocardiogram showed a hyperdynamic LV function of 70%. 4 extensive volume overload in addition to hypoproteinemia and hypoproteinemia contributing to the patient's third spacing an extensive upper and lower extremity edema 5 TPN for Nutritional Support 6 Open Wound with Necrosis of the Wound Surface, status post debridement 7 acute hypoxic respiratory failure secondary to ARDS , still on low tidal volume ventilation. The patient is on high PEEP of 14 with an FiO2 of 85%. 8 extensive subcutaneous emphysema involving the face chest and upper extremities. There may be a slight now mediastinum. Nevertheless this hasn't affected the patient's oxidation or ventilation. No signs of any worsening in her hemodynamics. We'll continue to follow. We'll attempt to lower down the PEEP if possible. Keep the low tidal volume ventilation for now. Allow permissive hypercapnia. 9 severe hypoproteinemia and hypoproteinemia 10 chronic anemia, expected outcome of the above-mentioned comorbidities 11 lactic acidosis, improved 12 carotid artery insufficiency currently on IV hydrocortisone 13left radial artery occlusion currently on IV heparin. Vascular surgery on the case and there is no significant progression and the thumb necrosis on today 's evaluation. Examination of the left thumb remains unchanged on today's evaluation. Plan Continue current supportive care. Monitor the substance emphysema. Monitor oxygenation. Wean down the FiO2 as possible. Within the PEEP if possible. The patient is currently off pressors. The patient will be given Lasix 40 mg IV every 12 hours. This should optimize some of her volume status. Continue TPN for nutritional support. Continue same antibiotic coverage. Prognosis remains poor and outcome is obviously poor baseline above-mentioned comorbidities. I care evaluation more than 35 minutes. Time with Patient: Greater than 30
[2018-08-11 12:21] LABS: Glucose,Whole Blood 132 mg/dL (75-99)
[2018-08-11] MEDS: FUROSEMIDE 10 MG/ML 4 ML VIAL IV SCH ×2 (12:44→20:52)
[2018-08-11 15:44] LABS: Glucose,Whole Blood 144 mg/dL (75-99)
--- NOTE | 2018-08-11 16:28 | P.PN ---
Subjective Progress Note Date: 08/11/18 Principal diagnosis: Perforated diverticulitis The patient showed some improvement today. She is off of pressor support. Her white count has improved. However she did develop subcutaneous emphysema and pneumomediastinum. Objective - Vital Signs Vital signs: Vital Signs Temp 97.4 F L 08/11/18 16:17 Pulse 97 08/11/18 16:17 Resp 19 08/11/18 16:17 BP 117/52 08/11/18 16:17 Pulse Ox 95 08/11/18 16:17 Intake & Output 08/10/18 08/11/18 08/11/18 18:59 06:59 18:59 Intake Total 6815.731 6997.027 1678.618 Output Total 1660 2325 1330 Balance -36.590 -457.973 348.618 Weight 79.8 kg 79.8 kg Intake: IV 6761 408 5849 Anidulafungin 100 mg In 130 130 Sodium Chloride 0.9% 100 ml @ 84 mls/hr IVPB DAILY JESSICA Rx#:[id number] Fentanyl 55 60 40 Mvi, Adult No.4 with Vit 135 K 10 ml Trace (Conc-1Ml/ Dose) 1 ml In Amino Acid 5%-D15w+Lytes*E* 1,000 ml @ 30 mls/hr IV .Q24H JESSICA Rx#:[id number] Mvi, Adult No.4 with Vit 360 225 K 10 ml Trace (Conc-1Ml/ Dose) 1 ml Potassium Chloride 40 meq Potassium Phosphate 10 mmol In Amino Acid 5%-D15w+Lytes* E* 1,000 ml @ 45 mls/hr IV .Q23H JESSICA Rx#: [id number] Pressure bag 66 48 54 Sodium Chloride 0.45% 1, 220 240 180 000 ml @ 20 mls/hr IV . Q24H JESSICA Rx#:[id number] Vancomycin 500 250 zosyn 200 100 Intake, IV Titration 92.410 1519.027 254.618 Amount Albumin Human 25% 50 ml 100 In Empty Bag 1 bag @ 100 mls/hr IVPB Q1H JESSICA Rx#: [id number] Insulin Regular 100 unit 13.766 37.446 In Sodium Chloride 0.9% 100 ml @ Per Protocol IV .Q0M JESSICA Rx#:[id number] Mvi, Adult No.4 with Vit 1031 K 10 ml Trace (Conc-1Ml/ Dose) 1 ml Parenteral Electrolytes 20 ml In Amino Acid 5%-D15w 1,000 ml @ 45 mls/hr IV . [id number] JESSICA Rx#:[id number] Norepinephrine 16 mg In 62.562 Sodium Chloride 0.9% 250 ml @ Titrate IV .Q0M JESSICA Rx#:[id number] Norepinephrine 32 mg In 7.260 Sodium Chloride 0.9% 250 ml @ 0.1 MCG/KG/MIN 4.28 mls/hr IV .Q24H JESSICA Rx#: [id number] Propofol 1,000 mg In 78.644 280.759 174.047 Empty Bag 1 bag @ Titrate IV .Q0M JESSICA Rx#: [id number] fentaNYL (PF) 1,000 mcg 80.571 In Sodium Chloride 0.9% 80 ml @ 0.62 MCG/KG/HR 5. 02 mls/hr IV .[id number] JESSICA Rx#:[id number] Blood Product 310 Rc As-1 Unit 310 [id number] Rc As-1 Unit 0 [id number] Output: Gastric Drainage 150 Drainage 210 65 Right Abdomen 210 65 Urine 1250 2075 1065 Stool 200 100 200 Other: Voiding Method Indwelling Catheter Indwelling Catheter Indwelling Catheter # Voids 2 2 ABP, PAP, CO, CI - Last Documented Arterial Blood Pressure 114/53 - Gastrointestinal Gastrointestinal Comment(s): Abdomen is soft. There is output through the ileostomy. The wound is stable. - Labs CBC & Chem 7: 08/11/18 08:30 08/11/18 08:30 Labs: Abnormal Lab Results - Last 24 Hours (Table) 08/10/18 08/10/18 08/10/18 Range/Units 18:50 20:17 22:33 WBC (3.8-10.6) k/uL RBC (3.80-5.40) m/uL Hgb (11.4-16.0) gm/dL Hct (34.0-46.0) % MCHC (31.0-37.0) g/dL RDW (11.5-15.5) % Plt Count (150-450) k/uL Neutrophils # (1.3-7.7) k/uL Lymphocytes # (1.0-4.8) k/uL ABG pH (7.35-7.45) ABG pCO2 (35-45) mmHg ABG HCO3 (21-25) mmol/L ABG Total CO2 (19-24) mmol/L ABG O2 Saturation (94-97) % Potassium (3.5-5.1) mmol/L Chloride (98-107) mmol/L BUN (7-17) mg/dL Glucose (74-99) mg/dL POC Glucose (mg/dL) 194 H 165 H 184 H (75-99) mg/dL Calcium (8.4-10.2) mg/dL AST (14-36) U/L ALT (9-52) U/L Alkaline Phosphatase (38-126) U/L Total Protein (6.3-8.2) g/dL Albumin (3.5-5.0) g/dL Vancomycin Trough ug/mL Crossmatch 08/11/18 08/11/18 08/11/18 Range/Units 01:15 02:15 03:43 WBC (3.8-10.6) k/uL RBC (3.80-5.40) m/uL Hgb (11.4-16.0) gm/dL Hct (34.0-46.0) % MCHC (31.0-37.0) g/dL RDW (11.5-15.5) % Plt Count (150-450) k/uL Neutrophils # (1.3-7.7) k/uL Lymphocytes # (1.0-4.8) k/uL ABG pH (7.35-7.45) ABG pCO2 (35-45) mmHg ABG HCO3 (21-25) mmol/L ABG Total CO2 (19-24) mmol/L ABG O2 Saturation (94-97) % Potassium (3.5-5.1) mmol/L Chloride (98-107) mmol/L BUN (7-17) mg/dL Glucose (74-99) mg/dL POC Glucose (mg/dL) 162 H 176 H 104 H (75-99) mg/dL Calcium (8.4-10.2) mg/dL AST (14-36) U/L ALT (9-52) U/L Alkaline Phosphatase (38-126) U/L Total Protein (6.3-8.2) g/dL Albumin (3.5-5.0) g/dL Vancomycin Trough ug/mL Crossmatch 08/11/18 08/11/18 08/11/18 Range/Units 04:14 04:42 04:48 WBC (3.8-10.6) k/uL RBC (3.80-5.40) m/uL Hgb (11.4-16.0) gm/dL Hct (34.0-46.0) % MCHC (31.0-37.0) g/dL RDW (11.5-15.5) % Plt Count (150-450) k/uL Neutrophils # (1.3-7.7) k/uL Lymphocytes # (1.0-4.8) k/uL ABG pH 7.29 L (7.35-7.45) ABG pCO2 60 H (35-45) mmHg ABG HCO3 29 H (21-25) mmol/L ABG Total CO2 30 H (19-24) mmol/L ABG O2 Saturation 97.9 H (94-97) % Potassium (3.5-5.1) mmol/L Chloride (98-107) mmol/L BUN (7-17) mg/dL Glucose (74-99) mg/dL POC Glucose (mg/dL) 127 H (75-99) mg/dL Calcium (8.4-10.2) mg/dL AST (14-36) U/L ALT (9-52) U/L Alkaline Phosphatase (38-126) U/L Total Protein (6.3-8.2) g/dL Albumin (3.5-5.0) g/dL Vancomycin Trough 30.4 H* ug/mL Crossmatch 08/11/18 08/11/18 08/11/18 Range/Units 04:48 07:03 08:30 WBC 12.7 H (3.8-10.6) k/uL RBC 1.83 L (3.80-5.40) m/uL Hgb 5.2 L* D (11.4-16.0) gm/dL Hct 17.4 L* (34.0-46.0) % MCHC 29.9 L (31.0-37.0) g/dL RDW 17.0 H (11.5-15.5) % Plt Count 71 L (150-450) k/uL Neutrophils # 11.5 H (1.3-7.7) k/uL Lymphocytes # 0.7 L (1.0-4.8) k/uL ABG pH (7.35-7.45) ABG pCO2 (35-45) mmHg ABG HCO3 (21-25) mmol/L ABG Total CO2 (19-24) mmol/L ABG O2 Saturation (94-97) % Potassium 3.4 L (3.5-5.1) mmol/L Chloride 112 H (98-107) mmol/L BUN 40 H (7-17) mg/dL Glucose 153 H (74-99) mg/dL POC Glucose (mg/dL) 166 H (75-99) mg/dL Calcium 7.5 L (8.4-10.2) mg/dL AST (14-36) U/L ALT (9-52) U/L Alkaline Phosphatase (38-126) U/L Total Protein (6.3-8.2) g/dL Albumin (3.5-5.0) g/dL Vancomycin Trough ug/mL Crossmatch 08/11/18 08/11/18 08/11/18 Range/Units 08:30 08:35 09:50 WBC (3.8-10.6) k/uL RBC (3.80-5.40) m/uL Hgb (11.4-16.0) gm/dL Hct (34.0-46.0) % MCHC (31.0-37.0) g/dL RDW (11.5-15.5) % Plt Count (150-450) k/uL Neutrophils # (1.3-7.7) k/uL Lymphocytes # (1.0-4.8) k/uL ABG pH (7.35-7.45) ABG pCO2 (35-45) mmHg ABG HCO3 (21-25) mmol/L ABG Total CO2 (19-24) mmol/L ABG O2 Saturation (94-97) % Potassium 3.2 L (3.5-5.1) mmol/L Chloride 111 H (98-107) mmol/L BUN 41 H (7-17) mg/dL Glucose 138 H (74-99) mg/dL POC Glucose (mg/dL) 156 H (75-99) mg/dL Calcium 7.5 L (8.4-10.2) mg/dL AST 99 H (14-36) U/L ALT 53 H (9-52) U/L Alkaline Phosphatase 134 H (38-126) U/L Total Protein 3.6 L (6.3-8.2) g/dL Albumin 1.7 L (3.5-5.0) g/dL Vancomycin Trough ug/mL Crossmatch See Detail 08/11/18 08/11/18 Range/Units 12:17 15:40 WBC (3.8-10.6) k/uL RBC (3.80-5.40) m/uL Hgb (11.4-16.0) gm/dL Hct (34.0-46.0) % MCHC (31.0-37.0) g/dL RDW (11.5-15.5) % Plt Count (150-450) k/uL Neutrophils # (1.3-7.7) k/uL Lymphocytes # (1.0-4.8) k/uL ABG pH (7.35-7.45) ABG pCO2 (35-45) mmHg ABG HCO3 (21-25) mmol/L ABG Total CO2 (19-24) mmol/L ABG O2 Saturation (94-97) % Potassium (3.5-5.1) mmol/L Chloride (98-107) mmol/L BUN (7-17) mg/dL Glucose (74-99) mg/dL POC Glucose (mg/dL) 132 H 144 H (75-99) mg/dL Calcium (8.4-10.2) mg/dL AST (14-36) U/L ALT (9-52) U/L Alkaline Phosphatase (38-126) U/L Total Protein (6.3-8.2) g/dL Albumin (3.5-5.0) g/dL Vancomycin Trough ug/mL Crossmatch Microbiology - Last 24 Hours (Table) 08/09/18 16:50 Urine Culture - Final Urine,Voided 08/09/18 16:50 Blood Culture Gram Stain - Preliminary Blood Blood Culture - Preliminary Coagulase Negative Staph 08/09/18 16:50 Blood Culture - Preliminary Blood No Growth after 24 hours 08/09/18 16:50 Blood Culture - Final Blood Assessment and Plan Assessment: Status post sepsis from severe diverticulitis abscess and then subsequent small bowel resection with ileostomy. The patient has had some improvement however her pneumomediastinum will be observed by the air bag buffer. If it progresses she may require a chest tube. Her condition is quite guarded.
--- NOTE | 2018-08-11 16:52 | XR ---
EXAMINATION: XR chest 1V portable DATE AND TIME: 08/11/2018 4:35 PM CLINICAL INDICATION: PHH; shortness of breath COMPARISON: Portable AP semiupright chest X-ray 08/11/2018 at 6:00 AM TECHNIQUE: Departmental protocol FINDINGS: ET tube tip superimposed over the mid trachea, similar in position. NG tube port superimposed over the expected position of the gastroesophageal junction. Left subclavian central line tip superimposed over the expected position of the cavoatrial junction. 1) When compared to the prior study the volume of diffuse subcutaneous emphysema has increased to a m oderate degree. 2) There is evidence of pneumomediastinum. 3) Cannot exclude pneumothorax without CT. 4) The prominent bilateral confluent alveolar opacities have increased to a moderate degree since the prior study. Central predominance favors pulmonary edema and/or pulmonary hemorrhage although findin gs may be superimposed upon multifocal pneumonia - developing ARDS remains a consideration. IMPRESSION: INTERVAL WORSENING DETAILED.
[2018-08-11] MEDS: INSULIN REGULAR 100 UNIT in SODIUM CHLORIDE 0.9% 100 ML IV SCH (18:17)
[2018-08-11 18:24] LABS: Glucose,Whole Blood 155 mg/dL (75-99)
[2018-08-11 19:42] LABS: Anisocytosis Slight; HCT 31.6 % (34.0-46.0); Hypochromasia Moderate; MCHC 31.5 g/dL (31.0-37.0); Mean Platelet Volume 10.2; Platelet Count 83 k/uL (150-450); Poikilocytosis Slight; RBC 3.44 m/uL (3.80-5.40); RDW 16.5 % (11.5-15.5); WBC 23.2 k/uL (3.8-10.6)
[2018-08-11] MEDS: MVI, ADULT NO.4 WITH VIT K 10 ML, TRACE (CONC-1ML/DOSE) 1 ML, PARENTERAL ELECTROLYTES 2... IV SCH ×4 (20:49)
[2018-08-11] MEDS: SODIUM CHLORIDE 0.45% 1,000 ML IV SCH (20:51)
[2018-08-11 22:32] LABS: Glucose,Whole Blood 188 mg/dL (75-99)
[2018-08-11] MEDS ORDERED: Potassium Replacement Protocol 1 EACH MISC MISCELLANE PRN (23:04)
[2018-08-11] MEDS: NOREPINEPHRINE 32 MG in SODIUM CHLORIDE 0.9% 250 ML IV SCH (23:08)
[2018-08-11] MEDS: IPRATROPIUM-ALBUTEROL 3 ML NEB INHALATION PRN (23:19)
--- NOTE | 2018-08-11 23:52 | PN ---
PROGRESS NOTE DATE OF SERVICE: 08/11/2018. REASON FOR FOLLOWUP: . INTERVAL HISTORY: The patient is currently afebrile. The patient is hemodynamically stable. The patient is currently off the pressor support. FiO2 is currently down to 75%. The patient and could not provide any history. PHYSICAL EXAMINATION: Blood pressure is 117/52 with a pulse of 97, T 97.4. She is 95% on 65% FiO2 description is a middle-aged female lying in bed in no distress. HEENT examination: No scleral icterus. The patient is orally intubated. Lungs unlabored breathing, decreased breath sounds at the base. Heart S1, S2 heard with abdomen soft. Incision currently covered. No significant drainage. Extremities: No edema of the feet. LABS: White condition did jump to 23.2, BUN of , creatinine 0.83. Blood culture: Coag negative staphylococcus Opening from the art line. DIAGNOSTIC IMPRESSION AND PLAN: Patient with abdominal sepsis. The patient currently did . She also have a positive blood culture should be discontinued. The patient is currently broadly covered with Zosyn and then Flagyl and the vancomycin. Slight jump in white count. We will monitor closely as the patient overall has been having improvement. The goal will be to discontinue the patient is on continue supportive care. MMODL / IJN: [id number] /
[2018-08-12 00:52] LABS: Glucose,Whole Blood 157 mg/dL (75-99)
[2018-08-12] MEDS: HYDROCORTISONE SUCCINATE 100 MG/2 ML VIAL IV SCH ×3 (01:11→17:01)
[2018-08-12] MEDS: POTASSIUM CHLORIDE 10 MEQ in WATER FOR INJECTION 1 100ML.BAG IVPB SCH ×2 (01:12→03:50)
[2018-08-12] MEDS: PIPERACILLIN-TAZOBACTAM 3.375 GM in SODIUM CHLORIDE 0.9% 100 ML IVPB SCH ×3 (01:13→17:00)
[2018-08-12] MEDS: PROPOFOL 1,000 MG in EMPTY BAG 1 BAG IV SCH ×5 (01:22→18:23)
[2018-08-12] MEDS: METOCLOPRAMIDE 5 MG/ML 2 ML VIAL IVP SCH ×4 (01:26→17:51)
[2018-08-12] MEDS: fentaNYL (PF) 1,000 MCG in SODIUM CHLORIDE 0.9% 80 ML IV SCH ×2 (01:54→20:56)
[2018-08-12 02:11] LABS: Glucose,Whole Blood 142 mg/dL (75-99)
[2018-08-12] MEDS: IPRATROPIUM-ALBUTEROL 3 ML NEB INHALATION PRN ×2 (03:11→23:24)
[2018-08-12 03:51] LABS: Glucose,Whole Blood 157 mg/dL (75-99)
[2018-08-12 04:36] LABS: ABG HCO3 28 mmol/L (21-25); ABG Oxygen Saturation 94.1 % (94-97); ABG PCO2 54 mmHg (35-45); ABG PH 7.33 (7.35-7.45); ABG PO2 70 mmHg (83-108); ABG TCO2 30 mmol/L (19-24)
[2018-08-12 05:51] LABS: Anisocytosis Slight; Basophils # (A) 0.1 k/uL (0-0.2); Basophils % (A) 1 %; Eosinophils # (A) 0.1 k/uL (0-0.7); Eosinophils % (A) 0 %; HCT 30.5 % (34.0-46.0); HGB 9.7 gm/dL (11.4-16.0); Hypochromasia Moderate; Lymphocytes # (A) 0.7 k/uL (1.0-4.8); Lymphocytes % (A) 3 %; MCH 28.9 pg (25.0-35.0); MCHC 31.6 g/dL (31.0-37.0); MCV 91.3 fL (80.0-100.0); Monocytes # (A) 0.4 k/uL (0-1.0); Monocytes % (A) 2 %; Neutrophils # (A) 21.3 k/uL (1.3-7.7); Neutrophils % (A) 94 %; Poikilocytosis Slight; RBC 3.35 m/uL (3.80-5.40); WBC 22.8 k/uL (3.8-10.6)
[2018-08-12 05:56] LABS: Platelet Count 85 k/uL (150-450)
[2018-08-12] MEDS: VANCOMYCIN 1,500 MG in SODIUM CHLORIDE 0.9% 250 ML IVPB SCH (05:58)
[2018-08-12 06:15] LABS: ALT 63 U/L (9-52); AST 87 U/L (14-36); Albumin 1.9 g/dL (3.5-5.0); Alkaline Phosphatase 220 U/L (38-126); Anion Gap 6 mmol/L; Blood Urea Nitrogen 44 mg/dL (7-17); Calcium 7.7 mg/dL (8.4-10.2); Carbon Dioxide 26 mmol/L (22-30); Chloride 110 mmol/L (98-107); Glucose 151 mg/dL (74-99); Phosphorus 3.7 mg/dL (2.5-4.5); Potassium 3.6 mmol/L (3.5-5.1); Sodium 142 mmol/L (137-145); Total Bilirubin 0.9 mg/dL (0.2-1.3); Total Protein 4.3 g/dL (6.3-8.2)
[2018-08-12] MEDS: IPRATROPIUM-ALBUTEROL 3 ML NEB INHALATION SCH ×4 (06:15→19:52)
--- NOTE | 2018-08-12 07:18 | XR ---
EXAMINATION TYPE: XR chest 1V portable DATE OF EXAM: 08/12/2018 CLINICAL HISTORY: Difficulty breathing progress study. TECHNIQUE: Single AP portable upright view of the chest is obtained. COMPARISON: Chest radiograph one day earlier. FINDINGS: An endotracheal and enteric tubes remain appropriately positioned. Left subclavian central line remains appropriately positioned. Extensive subcutaneous emphysema is evident. Pneumomediastinum and extensive subcutaneous emphysema p ersists. There is also suspected pneumoperitoneum as a small crescent of air is now seen located infe rior to the left hemidiaphragm. No sizable pleural effusion or obvious pneumothorax. Bilateral hilar airspace disease persists. IMPRESSION: 1. Stable support lines and tubes. 2. Stable extensive subcutaneous emphysema with pneumomediastinum 3. Interval suspected pneumoperitoneum as a small crescent of air is now seen located inferior to the left hemidiaphragm. 4. Stable bilateral hilar airspace opacities.
[2018-08-12 08:07] LABS: Glucose,Whole Blood 85 mg/dL (75-99)
[2018-08-12] MEDS: PANTOPRAZOLE 40 MG/10 ML VIAL IVP SCH (09:31)
[2018-08-12] MEDS: CHLORHEXIDINE GLUCONATE 15 ML CUP MUCOUS MEM SCH ×2 (09:31→20:38)
[2018-08-12] MEDS: FUROSEMIDE 10 MG/ML 4 ML VIAL IV SCH ×2 (09:32→20:38)
[2018-08-12] MEDS: SODIUM CHLORIDE 0.45% 1,000 ML IV SCH (09:53)
--- NOTE | 2018-08-12 10:10 | P.PN ---
Progress Note - Text Progress Note Date: 08/12/18 The patient is on the ventilator sedated. She still has significant chest wall subcutaneous emphysema. There have been no acute changes overnight. On exam vital signs appear stable. Ventilatory settings are stable. Abdomen is edematous ileostomy is functioning. The defunctionalized: Has no significant output. The wound is stable. Sepsis, ARDS. Patient's vent settings currently managed with Dr. Velez. She will most likely need a tracheostomy on Tuesday.
[2018-08-12 10:15] LABS: Glucose,Whole Blood 149 mg/dL (75-99)
[2018-08-12] MEDS: ANIDULAFUNGIN 100 MG in SODIUM CHLORIDE 0.9% 100 ML IVPB SCH (10:23)
--- NOTE | 2018-08-12 11:49 | P.PN ---
Subjective Progress Note Date: 08/12/18 Principal diagnosis: Patient is a 58-year-old female with no significant past medical history o who presented to the emergency department at the recommendations of her PCP for dehydration, nausea, and vomiting. In the emergency department she underwent an extensive evaluation. Computed tomography scan of the abdomen showed diverticular abscess with partial bowel obstruction she was admitted for further management. Initial laboratory analysis showed a sodium of 132, carbon dioxide 21, and a negative urinalysis. She was started on IV fluids, antibiotics and was admitted. General surgery was consulted. Patient initially wanted conservative management did not want surgery. Interventional radiology was consulted and she underwent abscess ranges placement of percutaneous drain on 07/28/18. She was found to have an elevated PTT and hematology was consulted. They felt that this was likely due to poor nutritional intake and ordered additional vitamin K. Her PT INR normalized with additional vitamin K. She was seen by ID who discontinue meropenem and started her on Zosyn. She had initially been progressing well. Overnight on she developed increasing pain and nausea. She started requiring IV narcotics for treatment of her pain. She then became tachycardic. Morning blood work on 07/30 showed a depressed white blood cell count at 2.5, and carbon dioxide of 12. Stat CT with IV contrast as well as a stat lactic acid and a [address] abdomen and pelvis showed free air. Case discussed with Dr. Jacobson and patient was taken urgently to the operating room for ex-lap due to perforated viscus. During the procedure, the patient was noted to have fecal peritonitis and underwent a sigmoid colectomy with end colostomy. She was transferred to the ICU post-operatively and was started on IV pressors. The patient was extubated on 07/31/18. However, she continued to require Levophed. ID recommended the patient to be switched to Unasyn and Flagyl. A random cortisol level was drawn and was 22, for which patient was started on hydrocortisone for suspected adrenal insufficiency. On 08/02 the patient developed respiratory distress and was re-intubated. She was also noted to have L thumb discoloration with history of art line placement on that wrist. Vascular surgery was consulted and did not recommend urgent surgical intervention. Her pressors were able to taken off momentarily on 08/06 but required to be restarted on 08/07. She had a dusky appearance to the wound edges and was taken back to the OR on 08/09 and underwent small bowel resection with abdominal wound debridement. patiently currently on mechanical ventilator and sedated on propofol also on fentanyl drip for pain and comfort continues to remain normotensive. Continues to be afebrile, anasarca is significantly improved today. Patient with facial due to swelling subcutaneous emphysema. and anasarca. Hemoglobin down to yesterday received 2 units of packed RBCs up to 9.7 this morning Objective - Vital Signs Vital signs: Vital Signs Temp 96.8 F L 08/12/18 08:00 Pulse 89 08/12/18 11:00 Resp 29 H 08/12/18 11:00 BP 93/50 08/12/18 09:00 Pulse Ox 95 08/12/18 11:00 Intake & Output 08/11/18 08/12/18 08/12/18 18:59 06:59 18:59 Intake Total 2353.836 2356.126 506.965 Output Total 1775 1125 805 Balance 705.771 4102.126 -298.035 Weight 79.8 kg 78.5 kg Intake: IV 1442 917 416 Anidulafungin 100 mg In 130 100 Sodium Chloride 0.9% 100 ml @ 84 mls/hr IVPB DAILY JESSICA Rx#:[id number] Fentanyl 55 60 5 Mvi, Adult No.4 with Vit 135 K 10 ml Trace (Conc-1Ml/ Dose) 1 ml In Amino Acid 5%-D15w+Lytes*E* 1,000 ml @ 30 mls/hr IV .Q24H JESSICA Rx#:[id number] Mvi, Adult No.4 with Vit 360 45 K 10 ml Trace (Conc-1Ml/ Dose) 1 ml Potassium Chloride 40 meq Potassium Phosphate 10 mmol In Amino Acid 5%-D15w+Lytes* E* 1,000 ml @ 45 mls/hr IV .Q23H JESSICA Rx#: [id number] Piperacillin-Tazobactam 3 125 100 .375 gm In Sodium Chloride 0.9% 100 ml @ 25 mls/hr IVPB Q8HR JESSICA Rx# :[id number] Potassium Chloride 10 meq 250 In Water For Injection 1 100ml.bag @ 100 mls/hr IVPB Q1H JESSICA Rx#: [id number] Pressure bag 72 72 6 Sodium Chloride 0.45% 1, 240 240 80 000 ml @ 20 mls/hr IV . Q24H JESSICA Rx#:[id number] Vancomycin 250 Vancomycin 1,500 mg In 125 125 Sodium Chloride 0.9% 250 ml @ 125 mls/hr IVPB Q12H JESSICA Rx#:[id number] zosyn 200 Intake, IV Titration 388.455 3008.126 90.965 Amount Insulin Regular 100 unit 37.218 17.687 6.918 In Sodium Chloride 0.9% 100 ml @ Per Protocol IV .Q0M JESSICA Rx#:[id number] Mvi, Adult No.4 with Vit 1031 K 10 ml Trace (Conc-1Ml/ Dose) 1 ml Parenteral Electrolytes 20 ml In Amino Acid 5%-D15w 1,000 ml @ 45 mls/hr IV . [id number] JESSICA Rx#:[id number] Propofol 1,000 mg In 174.047 296.732 84.047 Empty Bag 1 bag @ Titrate IV .Q0M JESSICA Rx#: [id number] fentaNYL (PF) 1,000 mcg 80.571 93.707 In Sodium Chloride 0.9% 80 ml @ 0.62 MCG/KG/HR 5. 02 mls/hr IV .[id number] [facility] Rx#:[id number] Blood Product 620 Rc As-1 Unit 310 [id number] Rc As-1 Unit 310 [id number] Output: Drainage 130 Right Abdomen 130 Urine 1445 1125 705 Stool 200 100 Other: Voiding Method Indwelling Catheter Indwelling Catheter Indwelling Catheter # Voids 2 ABP, PAP, CO, CI - Last Documented Arterial Blood Pressure 132/55 - Exam Constitutional: Intubated currently on mechanical ventilator, OG/OT tubes in place Eyes: Anicteric sclerae, moist conjunctiva, no lid-lag, PERRLA ENMT: NC/AT,Oropharynx clear, no erythema, exudates Neck:Supple, FROM, no masses, or JVD, No carotid bruits; No thyromegaly Lungs: Diminished bilaterally with some bibasilar crackles, no wheezes Cardiovascular: Heart regular in rate and rhythm, No murmurs, gallops, or rubs no peripheral edema Abdominal: Soft Nontender, abdominal wound VAC in place with serous drainage evidence of necrosis, functioning colostomy and ileostomy with dark fluid collection in both, hypoactive bowel sounds Skin: Multiple tears with seepage of serous fluid due to anasarca Extremities: Left thumb violaceously discolored dark, unable to palpate Radial pulse which is heard with Doppler Psychiatric: Alert and oriented to person, place and time, Appropriate affect Intact judgement - Labs CBC & Chem 7: 08/12/18 05:10 08/12/18 05:10 Labs: Abnormal Lab Results - Last 24 Hours (Table) 08/11/18 08/11/18 08/11/18 Range/Units 09:50 12:17 15:40 WBC (3.8-10.6) k/uL RBC (3.80-5.40) m/uL Hgb (11.4-16.0) gm/dL Hct (34.0-46.0) % RDW (11.5-15.5) % Plt Count (150-450) k/uL Neutrophils # (1.3-7.7) k/uL Lymphocytes # (1.0-4.8) k/uL ABG pH (7.35-7.45) ABG pCO2 (35-45) mmHg ABG pO2 (83-108) mmHg ABG HCO3 (21-25) mmol/L ABG Total CO2 (19-24) mmol/L Chloride (98-107) mmol/L BUN (7-17) mg/dL Glucose (74-99) mg/dL POC Glucose (mg/dL) 132 H 144 H (75-99) mg/dL Calcium (8.4-10.2) mg/dL AST (14-36) U/L ALT (9-52) U/L Alkaline Phosphatase (38-126) U/L Total Protein (6.3-8.2) g/dL Albumin (3.5-5.0) g/dL Crossmatch See Detail 08/11/18 08/11/18 08/11/18 Range/Units 18:21 19:02 22:30 WBC 23.2 H (3.8-10.6) k/uL RBC 3.44 L (3.80-5.40) m/uL Hgb 10.0 L D (11.4-16.0) gm/dL Hct 31.6 L (34.0-46.0) % RDW 16.5 H (11.5-15.5) % Plt Count 83 L (150-450) k/uL Neutrophils # (1.3-7.7) k/uL Lymphocytes # (1.0-4.8) k/uL ABG pH (7.35-7.45) ABG pCO2 (35-45) mmHg ABG pO2 (83-108) mmHg ABG HCO3 (21-25) mmol/L ABG Total CO2 (19-24) mmol/L Chloride (98-107) mmol/L BUN (7-17) mg/dL Glucose (74-99) mg/dL POC Glucose (mg/dL) 155 H 188 H (75-99) mg/dL Calcium (8.4-10.2) mg/dL AST (14-36) U/L ALT (9-52) U/L Alkaline Phosphatase (38-126) U/L Total Protein (6.3-8.2) g/dL Albumin (3.5-5.0) g/dL Crossmatch 08/12/18 08/12/18 08/12/18 Range/Units 00:39 02:09 03:47 WBC (3.8-10.6) k/uL RBC (3.80-5.40) m/uL Hgb (11.4-16.0) gm/dL Hct (34.0-46.0) % RDW (11.5-15.5) % Plt Count (150-450) k/uL Neutrophils # (1.3-7.7) k/uL Lymphocytes # (1.0-4.8) k/uL ABG pH (7.35-7.45) ABG pCO2 (35-45) mmHg ABG pO2 (83-108) mmHg ABG HCO3 (21-25) mmol/L ABG Total CO2 (19-24) mmol/L Chloride (98-107) mmol/L BUN (7-17) mg/dL Glucose (74-99) mg/dL POC Glucose (mg/dL) 157 H 142 H 157 H (75-99) mg/dL Calcium (8.4-10.2) mg/dL AST (14-36) U/L ALT (9-52) U/L Alkaline Phosphatase (38-126) U/L Total Protein (6.3-8.2) g/dL Albumin (3.5-5.0) g/dL Crossmatch 08/12/18 08/12/18 08/12/18 Range/Units 04:33 05:10 05:10 WBC 22.8 H (3.8-10.6) k/uL RBC 3.35 L (3.80-5.40) m/uL Hgb 9.7 L (11.4-16.0) gm/dL Hct 30.5 L (34.0-46.0) % RDW 17.0 H (11.5-15.5) % Plt Count 85 L (150-450) k/uL Neutrophils # 21.3 H (1.3-7.7) k/uL Lymphocytes # 0.7 L (1.0-4.8) k/uL ABG pH 7.33 L (7.35-7.45) ABG pCO2 54 H (35-45) mmHg ABG pO2 70 L (83-108) mmHg ABG HCO3 28 H (21-25) mmol/L ABG Total CO2 30 H (19-24) mmol/L Chloride 110 H (98-107) mmol/L BUN 44 H (7-17) mg/dL Glucose 151 H (74-99) mg/dL POC Glucose (mg/dL) (75-99) mg/dL Calcium 7.7 L (8.4-10.2) mg/dL AST 87 H (14-36) U/L ALT 63 H (9-52) U/L Alkaline Phosphatase 220 H (38-126) U/L Total Protein 4.3 L (6.3-8.2) g/dL Albumin 1.9 L (3.5-5.0) g/dL Crossmatch 08/12/18 Range/Units 09:49 WBC (3.8-10.6) k/uL RBC (3.80-5.40) m/uL Hgb (11.4-16.0) gm/dL Hct (34.0-46.0) % RDW (11.5-15.5) % Plt Count (150-450) k/uL Neutrophils # (1.3-7.7) k/uL Lymphocytes # (1.0-4.8) k/uL ABG pH (7.35-7.45) ABG pCO2 (35-45) mmHg ABG pO2 (83-108) mmHg ABG HCO3 (21-25) mmol/L ABG Total CO2 (19-24) mmol/L Chloride (98-107) mmol/L BUN (7-17) mg/dL Glucose (74-99) mg/dL POC Glucose (mg/dL) 149 H (75-99) mg/dL Calcium (8.4-10.2) mg/dL AST (14-36) U/L ALT (9-52) U/L Alkaline Phosphatase (38-126) U/L Total Protein (6.3-8.2) g/dL Albumin (3.5-5.0) g/dL Crossmatch Microbiology - Last 24 Hours (Table) 08/10/18 18:30 Blood Culture - Preliminary Blood No Growth after 24 hours 08/09/18 16:50 Blood Culture - Preliminary Blood No Growth after 48 hours Assessment and Plan Assessment: Septic shock * Continue with stress dose of Solu-Cortef, levophed weaned off with heart rate normal sinus rhythm in the 80s * Appears intravascularly euvolemic with significant improvement off the third spacing after receiving albumin followed by Lasix * Continue with antibiotic regimen of vancomycin and Zosyn and Eraxis * Echocardiogram showed hyperdynamic LV function with an EF of greater than 70 Diverticulitis with abscess and bowel perforation with septic shock s/p sigmoid colectomy, small bowel resection X 2 and appendectomy and debridement of wound necrosis - additional intraabdominal abscess - Surgery recs -Appreciate ID recommendations Acute hypoxemic respiratory failure due ARDS with possible DAD secondary to septic shock - vent management per ICU team, patient with improved oxygenation on today's ABG - CXR reviewed by pulmonary no evidence of pneumomediastinum does have subcutaneous emphysema likely secondary to elevated PEEP's needed for her ARDS - Consider trach in the next few days if no improvement and patient stable Anasarca * Diffuse third spacing much improved appears euvolemic, patient with excellent response and diuresis with pretreated abdomen followed by Lasix * We'll continue with Lasix twice a day * Continues to be hypoalbuminemic ARDS * secondary to septic shock from intra-abdominal infection/abscess/peritonitis -Management per pulmonary - treatment of infections - PEEP increased, low tidal volume - critical care recs Anemia, dilutational due to prolonged ICU stay - stable - follow CBC - transfuse for HgB <6 Transaminitis - likely due to TPN and hypoperfusion from shock liver - follow liver enzymes Relative adrenal insufficiency - stress dose steroids, wean per pulm/cc recs Hyperglycemia due to steroids and TPN - prediabetes - A1C 6.1, diet modification on discharge - follow BS and continue insulin gtt Post-op ileus - on TPN - NGT to suction - general surgery recs Severe Protein calorie malnutrition - on TPN Left thumb ischemia secondary to radial artery occlusion - vascular surgery recs appreciated, conservative management at this time. - heparin gtt held per surgery Thromboctypenia, reactive to sepsis, improving - follow CBC - HIT AB negative - Oncology recs appreciated AST elevation - monitor on TPN and ABX Hyponatremia, hypokalemia, hypophosphatemia, and hypomagnesemia resolved Coagulopathy, resolved Anion Gap metabolic acidosis, resolved lactic acidosis, improved DVT prophylaxis: Heparin held by general surgery Anticipated discharge: undetermined Place:[facility] A total of 45 minutes, complex care of this patient. (1) Sepsis Current Visit: Yes Status: Acute Code(s): A41.9 - SEPSIS, UNSPECIFIED ORGANISM SNOMED Code(s): 70382921 (2) Colonic diverticular abscess Current Visit: Yes Status: Acute Code(s): K57.20 - DVTRCLI OF LG INT W PERFORATION AND ABSCESS W/O BLEEDING SNOMED Code(s): 309776088 (3) Partial bowel obstruction Current Visit: Yes Status: Acute Code(s): K56.600 - PARTIAL INTESTINAL OBSTRUCTION, UNSPECIFIED TO CAUSE SNOMED Code(s): 99997879 (4) Abdominal pain Current Visit: Yes Status: Acute Code(s): R10.9 - UNSPECIFIED ABDOMINAL PAIN SNOMED Code(s): 69215300 (5) Coagulopathy Current Visit: Yes Status: Resolved Code(s): D68.9 - COAGULATION DEFECT, UNSPECIFIED SNOMED Code(s): 59344074 (6) Constipation Current Visit: Yes Status: Acute Code(s): K59.00 - CONSTIPATION, UNSPECIFIED SNOMED Code(s): 61003834
[2018-08-12 12:46] LABS: Glucose,Whole Blood 141 mg/dL (75-99)
[2018-08-12] MEDS: NOREPINEPHRINE 32 MG in SODIUM CHLORIDE 0.9% 250 ML IV SCH (13:13)
[2018-08-12 14:27] LABS: Glucose,Whole Blood 121 mg/dL (75-99)
--- NOTE | 2018-08-12 14:41 | P.PN ---
Subjective Progress Note Date: 08/12/18 A 58-year-old female patient was being seen in the follow-up in the intensive care unit. The patient has a complicated history of perforated diverticulitis with abscess formation and the patient has undergone expiratory laparotomy with sigmoid colectomy and colostomy and appendicectomy and the patient is postop day #8. The patient's course was complicated by development of sepsis which is secondary to intra-abdominal source. A previous fine-needle aspirate of the abdominal abscesses yielded gram-negative and anaerobes and the patient is currently on broad-spectrum antibiotics including a combination of Unasyn and Flagyl. The patient also developed acute hypoxic respiratory failure secondary to ARDS. The patient to be reintubated on 08/01/2018 and the patient has been intubated since. In terms of her condition, the patient remains on a mechanical ventilator on assist control mode. Today the tidal volume of 350, FiO2 of 60%, PEEP of 8 and a respiratory rate of 22. Chest x-ray showed diffuse bilateral pulmonary infiltrates. The lines are in good location. ET tube is in a good location. CVP is at 10. The morning blood gases showed a pH of 7.39 with a pCO2 of 48 and pO2 of 74 and this was on FiO2 of 60%. No significant orotracheal secretions. From the neurologic standpoint, the patient is sedated with Diprivan and she is calm and comfortable and success with the mechanical ventilator. From the hemodynamic standpoint, the patient CVP is at 10. The patient was on pressors and the patient was and 6 mics of norepinephrine infusion for hemodynamic support.. She has however developed significant amount of edema in all 4 extremities patient upper extremities bilaterally and she will benefit from diuresis. She is on TPN for nutritional support. She is receiving TPN through the triple-lumen catheter. The patient is still sedated with Diprivan and the Diprivan is running at 45 mics per KG per minute and the patient on insulin drip for blood sugar control. In terms of her abdominal finding, the patient has developed some necrosis along the open wound edges bilaterally. The wound VAC is in place. There is considerable amount of output through the wound VAC and output is quite dark and cloudy. Her white cell count is at 9.9. Her serum albumin is down to 1.4 with a total protein of 3.3. Renal function is stable for now. On 08/08/2018, the patient remains critically ill. The plan is to take this patient to the operating room for another abdominal washout and debridement knowing that she had developed some necrosis along the wound surface. The wound VAC was stopped yesterday. The patient is sedated with Diprivan and she is calm and comfortable. The prednisone running at 20 mics. She remains on a mechanical ventilator. This morning she was a tidal volume of 350 with an FiO2 of 60% and a PEEP of 8 and the respiratory rate of 22. As mentioned earlier, the patient is an ARDS with diffuse but the pulmonary infiltrates and there is interval worsening in her oxygenation and in the bilateral pulmonary infiltrates seen on today's chest x-ray. The blood gases from this morning showed a pH of 42 with a pCO2 of 47 and pO2 of 65.. Based on further drop in the pulse ox, increase the PEEP up to 12 L and it his FiO2 up to 70%. A repeat blood gases is pending and will need to fix her oxygenation prior to this patient going to the operating room. The patient is still on pressors. The patient has responded to Lasix 20 mg IV every 12 hours and the neck fluid balance is negative over the past 24 hours. She is producing adequate amount of urine output. She continues to have extensive edema in the upper and lower extremities. The left thumb is still necrotic. The patient is still requiring pressors and the dose being titrated to keep a mean artery pressure above 65. She is in the order of 5-6 g of norepinephrine infusion. The patient is on Diprivan which is running at 45 mg per KG per minute. She is also on insulin drip for blood sugar control. The wound VAC is still draining extensively, and order of probably 1 L on a 24-hour period. The patient is severely hypoproteinemic and hypoalbuminemic despite being on TPN for discharge and support. Antibiotic coverage remains unchanged. The patient remains on stress dose hydrocortisone. On today's evaluation of 08/09/2008 Seeing this patient for a follow-up. The patient is doing very poorly. Events occurring yesterday was noted. The patient was taken again to the operating room and the patient was found to have residual abscess. She underwent expiratory laparotomy, small bowel resection with ileostomy and drainage of intraperitoneal localized abscess near the previous small bowel anastomosis. There was also ongoing with infection and was debrided. Postop the patient was brought back to the intensive care units. The patient is still sedated with Diprivan which is running at 35 mics. The patient was somewhat asynchronous with the mechanical ventilator. I thought this was a pain related problem and for that reason the patient was given a dose of fentanyl 50 g to which she responded nicely and she'll be started also on a fentanyl drip. She is on a mechanical ventilator on assist control mode. As mentioned earlier in her chest x-ray showing diffuse but the pulmonary infiltrates consistent with ARDS. I was having some issues with oxygen desaturation. The PEEP is currently at 14 with an FiO2 of 85%. She is tidal volume is at 350 and the rate is at 24. The peak airway pressures around 34 with metastatic a pressure of around 28. Chest x-ray findings are essentially stable with diffuse bilateral pulmonary infiltrates. ET tube is in a good location. The most recent blood gas showed a pH of 7.35 with a pCO2 of 52 and pO2 of 57. The patient is on broad-spectrum antibiotics. Antibiotic coverage includes a combination of Zosyn and vancomycin and Anidulafungin. The patient is still requiring pressors. Norepinephrine infusion is running at 8 g per KG per minute. Urine output is adequate for now and the patient is producing more than 25-30 mL of urine output on an hourly basis. She continues to have extensive edema in all 4 extremities. She has weeping and fluid seeping from her skin surface in lower extremities and arms. She has areas of skin break in lower extremities and appropriate dressing has been applied. The abdominal wound is packed. The patient has some drainage in the colostomy back and some drainage also in the ileostomy bag. She is receiving TPN for the chest support which is being provided to her through the left subclavian triple-lumen catheter. Remains on stress dose hydrocortisone. Neck fluid balance over the past 24 hours has been +192 mL. On 08/10/2018, the patient remains intubated on a mechanical ventilator. She is sedated with Diprivan and fentanyl drip was added yesterday for comfort and pain reasons. The throat is running at 35 mics and fentanyl is at 50 mics. The patient is well sedated. She is a mechanical ventilator. Her FiO2 is up to 85% with a 14 of PEEP with a tidal volume of 350. Respirations are 24. The patient remains an ARDS with diffuse bilateral pulmonary infiltrates. I reviewed the blood gases from this morning and the blood gases showed a pH of 7.2 with episode of 68 and pO2 of 75. Based on that I think his respiratory rate up to 30. Chest x-ray showing bilateral pulmonary infiltrates. The findings are essentially stable compared to yesterday. ET tube is in a good location. The patient remains pressor dependent. She is on 2 mics of norepinephrine infusion at this point in time. Echocardiogram was done and patient is hyperdynamic with an ejection fraction of 70%. No evidence of the valvular abnormalities. She has no significant pulmonary hypertension. She is afebrile. Antibiotics have been adjusted and the patient is currently on a combination of Zosyn, vancomycin and Eraxis. The patient is profoundly hypoproteinemic and the is third spacing and fluid is seeping from the skin surface both in the upper and lower extremities and fluid is also seeping from the one surface noted the patient has an open abdominal wounds. Ileostomy and colostomy sites are unchanged and there is some dark material collecting in the bags. No major change in her condition compared to yesterday. She seems the more symptoms the mechanical ventilator. A comfort level is improved with the addition of fentanyl. The neck fluid balance is less than 1.5 L over the past 24 hours. On 08/11/2018, the patient remains on a mechanical ventilator. There has been some changes in her physical appearance of the patient's face and neck and anterior chest has been swollen. The patient developed subcutaneous emphysema and this has been confirmed on a chest x-ray that was done earlier this morning. No evidence of any pneumothorax. No evidence of any significant pneumomediastinum. This isn't anticipated complication of mechanical ventilation ARDS. I still have the patient FiO2 of 85% this morning with a PEEP of 14 and tidal volume of 350 with a respiratory rate of 24. Peak pressures around 30 for metastatic air pressure of around 28-29. Chest x-ray findings is showing extensive subcutaneous emphysema. ET tube is in a good location. The patient is still oxygenating and ventilating adequately knowing that the morning blood gas showed a pH of 7.29 with a pCO2 of 60 and pO2 of 100 and this was on FiO2 of 85%. Hemodynamically, the patient was able to come off pressors. She is maintaining her on blood pressure. Nevertheless hemoglobin dropped down to 5.2 without evidence of any external bleeding and the patient will be undergoing packed RBC transfusion a total of 2 today. She is still covered with broad-spectrum antibiotics with a combination of Eraxis, Zosyn and vancomycin. No new cultures are available it with exception of a coagulase- negative staph that was identified in the blood. The patient is afebrile. She is not tachycardic. She is maintaining a low blood pressure that she is off pressors. She is receiving TPN for nutritional support. She obviously has a extensive third spacing and seepage of fluid from the skin surface all over. Her serum albumin is down to 1.7. She remains on stress dose hydrocortisone. In terms of sedation, I felt that she is slightly oversedated on today's evaluation. I asked to cut down the Diprivan which is running at 35 g per KG per minute pH is also on fentanyl drip at 50 mics . The abdominal wound is unchanged. Local dressing and wound care is being applied. Ileostomy and colostomy sites are showing some liquid material and the viable on today's evaluation. On today's evaluation of 08/12/2018, no major changes this patient's condition. The patient remains an ARDS. The patient remains intubated on a mechanical ventilator. The patient has developed some worsening in the subQ emphysema yet this is mainly in her neck and chest area and upper shoulders. Based on that, I did some horizontal incision over the anterior chest to deflate some of the cutaneous air. Otherwise, the patient remains on the same vent setting which includes an assist-control of 24, tidal volume of 350, PEEP of 14 and FiO2 of 75 %. The morning blood gases showed a pH of 7.33 with a pCO2 of 54 and pO2 of 70 and this was done and FiO2 of 35%. Peak air pressures around 36 and static air pressures around 32. Chest x-ray shows no evidence of pneumothorax. No known mediastinum. There is extensive subcutaneous emphysema. The patient is afebrile. The patient is on TPN for nutritional support. The patient is maintaining her on blood pressure without being placed on pressors. The patient is being diuresis IV Lasix 40 mg every 12 hours. She is barely in a 0 fluid balance. Otherwise, the abdominal wounds remains unchanged. The ileostomy site is showing some liquid examination of the back. Colostomy site is also unchanged. The patient has extensive swelling and edema and she started having fluid seeping from the skin surface. She is obviously sedated. She is not paralyzed for now. Antibiotic combination of Zosyn, vancomycin and Eraxis. Objective - Vital Signs Vital signs: Vital Signs Temp 96.8 F L 08/12/18 08:00 Pulse 86 08/12/18 13:05 Resp 30 H 08/12/18 13:00 BP 80/49 08/12/18 13:00 Pulse Ox 96 08/12/18 13:00 Intake & Output 08/11/18 08/12/18 08/12/18 18:59 06:59 18:59 Intake Total 2353.836 2356.126 1397.410 Output Total 1775 1125 1545 Balance 437.559 2556.126 -147.590 Weight 79.8 kg 78.5 kg Intake: IV 1442 917 456 Anidulafungin 100 mg In 130 100 Sodium Chloride 0.9% 100 ml @ 84 mls/hr IVPB DAILY JESSICA Rx#:[id number] Fentanyl 55 60 5 Mvi, Adult No.4 with Vit 135 K 10 ml Trace (Conc-1Ml/ Dose) 1 ml In Amino Acid 5%-D15w+Lytes*E* 1,000 ml @ 30 mls/hr IV .Q24H JESSICA Rx#:[id number] Mvi, Adult No.4 with Vit 360 45 K 10 ml Trace (Conc-1Ml/ Dose) 1 ml Potassium Chloride 40 meq Potassium Phosphate 10 mmol In Amino Acid 5%-D15w+Lytes* E* 1,000 ml @ 45 mls/hr IV .Q23H JESSICA Rx#: [id number] Piperacillin-Tazobactam 3 125 100 .375 gm In Sodium Chloride 0.9% 100 ml @ 25 mls/hr IVPB Q8HR JESSICA Rx# :[id number] Potassium Chloride 10 meq 250 In Water For Injection 1 100ml.bag @ 100 mls/hr IVPB Q1H JESSICA Rx#: [id number] Pressure bag 72 72 6 Sodium Chloride 0.45% 1, 240 240 120 000 ml @ 20 mls/hr IV . Q24H JESSICA Rx#:[id number] Vancomycin 250 Vancomycin 1,500 mg In 125 125 Sodium Chloride 0.9% 250 ml @ 125 mls/hr IVPB Q12H JESSICA Rx#:[id number] zosyn 200 Intake, IV Titration 573.676 9825.126 941.410 Amount Insulin Regular 100 unit 37.218 17.687 6.918 In Sodium Chloride 0.9% 100 ml @ Per Protocol IV .Q0M JESSICA Rx#:[id number] Mvi, Adult No.4 with Vit 1031 732.75 K 10 ml Trace (Conc-1Ml/ Dose) 1 ml Parenteral Electrolytes 20 ml In Amino Acid 5%-D15w 1,000 ml @ 45 mls/hr IV . [id number] JESSICA Rx#:[id number] Norepinephrine 32 mg In 0 Sodium Chloride 0.9% 250 ml @ 0.1 MCG/KG/MIN 4.28 mls/hr IV .Q24H JESSICA Rx#: [id number] Propofol 1,000 mg In 174.047 296.732 145.434 Empty Bag 1 bag @ Titrate IV .Q0M JESSICA Rx#: [id number] fentaNYL (PF) 1,000 mcg 80.571 93.707 56.308 In Sodium Chloride 0.9% 80 ml @ 0.62 MCG/KG/HR 5. 02 mls/hr IV .[id number] JESSICA Rx#:[id number] Blood Product 620 Rc As-1 Unit 310 [id number] Rc As-1 Unit 310 [id number] Output: Drainage 130 40 Right Abdomen 130 40 Urine 1445 1125 1305 Stool 200 200 Other: Voiding Method Indwelling Catheter Indwelling Catheter Indwelling Catheter # Voids 2 2 ABP, PAP, CO, CI - Last Documented Arterial Blood Pressure 100/49 - Exam Gen. appearance the patient is intubated, the patient has developed extensive facial neck upper chest and upper extremity swelling secondary to subcutaneous emphysema development a complication of mechanical ventilation. The patient is sedated and the patient is on the mechanical ventilator. Orogastric and orotracheal tube are both in place. Head exam was generally normal. There was no scleral icterus or corneal arcus. Mucous membranes were moist. Neck was supple and without jugular venous distension, thyromegaly, or carotid bruits. Carotids were easily palpable bilaterally. There was no adenopathy. The patient has a triple lumen catheter in the left subclavian. The patient also has orogastric and orotracheal tube. Lungs are diminished bilaterally and there is some few basilar crackles heard in the mid and lower lung aguilera bilaterally. No wheezing. Cardiac exam revealed the PMI to be normally situated and sized. The rhythm was regular and no extrasystoles were noted during several minutes of auscultation. The first and second heart sounds were normal and physiologic splitting of the second heart sound was noted. There were no murmurs, rubs, clicks, or gallops. Abdomen exam is soft and the abdominal wound VAC is in place with serous drainage. There is evidence of necrosis of the subcutaneous tissue along the wound borders bilaterally. The patient has a functioning colostomy. There is minimal amount of output and the tissue still viable. Bowel sounds are hypoactive. The patient has an ileostomy and the patient has a colostomy. There is some liquid the dark material collecting and both bags. Extremities are showing extensive edema in all 4 extremities pressure in the upper extremities bilaterally. Neurologic the patient is sedated, comfortable not in acute distress. Exertional skin shows that the skin is poorly perfused. There is some moderate amount of skin weeping and upper extremities bilaterally. Abdominal wound is packed. The patient continues to have extensive amount of swelling and skin weeping and breakdown and this is all over. - Labs CBC & Chem 7: 08/12/18 05:10 08/12/18 05:10 Labs: Abnormal Lab Results - Last 24 Hours (Table) 08/11/18 08/11/18 08/11/18 Range/Units 09:50 15:40 18:21 WBC (3.8-10.6) k/uL RBC (3.80-5.40) m/uL Hgb (11.4-16.0) gm/dL Hct (34.0-46.0) % RDW (11.5-15.5) % Plt Count (150-450) k/uL Neutrophils # (1.3-7.7) k/uL Lymphocytes # (1.0-4.8) k/uL ABG pH (7.35-7.45) ABG pCO2 (35-45) mmHg ABG pO2 (83-108) mmHg ABG HCO3 (21-25) mmol/L ABG Total CO2 (19-24) mmol/L Chloride (98-107) mmol/L BUN (7-17) mg/dL Glucose (74-99) mg/dL POC Glucose (mg/dL) 144 H 155 H (75-99) mg/dL Calcium (8.4-10.2) mg/dL AST (14-36) U/L ALT (9-52) U/L Alkaline Phosphatase (38-126) U/L Total Protein (6.3-8.2) g/dL Albumin (3.5-5.0) g/dL Crossmatch See Detail 08/11/18 08/11/18 08/12/18 Range/Units 19:02 22:30 00:39 WBC 23.2 H (3.8-10.6) k/uL RBC 3.44 L (3.80-5.40) m/uL Hgb 10.0 L D (11.4-16.0) gm/dL Hct 31.6 L (34.0-46.0) % RDW 16.5 H (11.5-15.5) % Plt Count 83 L (150-450) k/uL Neutrophils # (1.3-7.7) k/uL Lymphocytes # (1.0-4.8) k/uL ABG pH (7.35-7.45) ABG pCO2 (35-45) mmHg ABG pO2 (83-108) mmHg ABG HCO3 (21-25) mmol/L ABG Total CO2 (19-24) mmol/L Chloride (98-107) mmol/L BUN (7-17) mg/dL Glucose (74-99) mg/dL POC Glucose (mg/dL) 188 H 157 H (75-99) mg/dL Calcium (8.4-10.2) mg/dL AST (14-36) U/L ALT (9-52) U/L Alkaline Phosphatase (38-126) U/L Total Protein (6.3-8.2) g/dL Albumin (3.5-5.0) g/dL Crossmatch 08/12/18 08/12/18 08/12/18 Range/Units 02:09 03:47 04:33 WBC (3.8-10.6) k/uL RBC (3.80-5.40) m/uL Hgb (11.4-16.0) gm/dL Hct (34.0-46.0) % RDW (11.5-15.5) % Plt Count (150-450) k/uL Neutrophils # (1.3-7.7) k/uL Lymphocytes # (1.0-4.8) k/uL ABG pH 7.33 L (7.35-7.45) ABG pCO2 54 H (35-45) mmHg ABG pO2 70 L (83-108) mmHg ABG HCO3 28 H (21-25) mmol/L ABG Total CO2 30 H (19-24) mmol/L Chloride (98-107) mmol/L BUN (7-17) mg/dL Glucose (74-99) mg/dL POC Glucose (mg/dL) 142 H 157 H (75-99) mg/dL Calcium (8.4-10.2) mg/dL AST (14-36) U/L ALT (9-52) U/L Alkaline Phosphatase (38-126) U/L Total Protein (6.3-8.2) g/dL Albumin (3.5-5.0) g/dL Crossmatch 08/12/18 08/12/18 08/12/18 Range/Units 05:10 05:10 09:49 WBC 22.8 H (3.8-10.6) k/uL RBC 3.35 L (3.80-5.40) m/uL Hgb 9.7 L (11.4-16.0) gm/dL Hct 30.5 L (34.0-46.0) % RDW 17.0 H (11.5-15.5) % Plt Count 85 L (150-450) k/uL Neutrophils # 21.3 H (1.3-7.7) k/uL Lymphocytes # 0.7 L (1.0-4.8) k/uL ABG pH (7.35-7.45) ABG pCO2 (35-45) mmHg ABG pO2 (83-108) mmHg ABG HCO3 (21-25) mmol/L ABG Total CO2 (19-24) mmol/L Chloride 110 H (98-107) mmol/L BUN 44 H (7-17) mg/dL Glucose 151 H (74-99) mg/dL POC Glucose (mg/dL) 149 H (75-99) mg/dL Calcium 7.7 L (8.4-10.2) mg/dL AST 87 H (14-36) U/L ALT 63 H (9-52) U/L Alkaline Phosphatase 220 H (38-126) U/L Total Protein 4.3 L (6.3-8.2) g/dL Albumin 1.9 L (3.5-5.0) g/dL Crossmatch 08/12/18 08/12/18 Range/Units 12:44 13:56 WBC (3.8-10.6) k/uL RBC (3.80-5.40) m/uL Hgb (11.4-16.0) gm/dL Hct (34.0-46.0) % RDW (11.5-15.5) % Plt Count (150-450) k/uL Neutrophils # (1.3-7.7) k/uL Lymphocytes # (1.0-4.8) k/uL ABG pH (7.35-7.45) ABG pCO2 (35-45) mmHg ABG pO2 (83-108) mmHg ABG HCO3 (21-25) mmol/L ABG Total CO2 (19-24) mmol/L Chloride (98-107) mmol/L BUN (7-17) mg/dL Glucose (74-99) mg/dL POC Glucose (mg/dL) 141 H 121 H (75-99) mg/dL Calcium (8.4-10.2) mg/dL AST (14-36) U/L ALT (9-52) U/L Alkaline Phosphatase (38-126) U/L Total Protein (6.3-8.2) g/dL Albumin (3.5-5.0) g/dL Crossmatch Microbiology - Last 24 Hours (Table) 08/10/18 18:30 Blood Culture - Preliminary Blood No Growth after 24 hours 08/09/18 16:50 Blood Culture - Preliminary Blood No Growth after 48 hours Assessment and Plan Plan: Assessment 1 complicated diverticular abscess with bowel perforation. The patient is also expiratory laparotomy, sigmoid colectomy and ostomy appendectomy. The patient is postop day #13. The patient had another expiratory laparotomy where an abscess was found next to the small bowel resection area and it was drained. The patient underwent further small bowel resection and diverting ileostomy. One debridement was also done. Patient is postop day #4 following the reexploration laparotomy. On 08/12/2018, the patient remains intubated on a mechanical ventilator number dealing with complications of ARDS and abdominal sepsis. Hemodynamically stable. Nevertheless, the patient is still vent dependent and the patient has developed extensive subcutaneous emphysema. The patient remains nothing by mouth on TPN for now. The wound is still open and packed and the patient has a viable ileostomy site. The patient is afebrile for now. 2 sepsis secondary to abdominal infection related to a complicated diverticular abscess. The patient has gram-negative/E. coli and Beta Strep and Anaerobes , and based on the most recent findings, the antibiotics have been adjusted to include a combination of Zosyn and vancomycin and Eraxis. The patient was taken off the pressors and the patient is maintaining his own blood pressure for now. Patient is also being diuresed IV Lasix 40 mg every 12 hours. 3 Shock Secondary to intra-abdominal sepsis and the patient currently is off pressors.. The echocardiogram showed a hyperdynamic LV function of 70%. 4 extensive volume overload in addition to hypoproteinemia and hypoproteinemia contributing to the patient's third spacing an extensive upper and lower extremity edema 5 TPN for Nutritional Support 6 Open Wound with Necrosis of the Wound Surface, status post debridement 7 acute hypoxic respiratory failure secondary to ARDS , still on low tidal volume ventilation. The patient is on high PEEP of 14 with an FiO2 of 85%. 8 extensive subcutaneous emphysema involving the face chest and upper extremities. There may be a slight now mediastinum. Nevertheless this hasn't affected the patient's oxidation or ventilation. No signs of any worsening in her hemodynamics. We'll continue to follow. We'll attempt to lower down the PEEP if possible. Keep the low tidal volume ventilation for now. Allow permissive hypercapnia. For now, the patient's appearance emphysema stable. A horizontal incision in the skin and fascia was done to the sleep is subcutaneous air. 9 severe hypoproteinemia and hypoproteinemia 10 chronic anemia, expected outcome of the above-mentioned comorbidities 11 lactic acidosis, improved 12 carotid artery insufficiency currently on IV hydrocortisone 13left radial artery occlusion currently on IV heparin. Vascular surgery on the case and there is no significant progression and the thumb necrosis on today 's evaluation. Examination of the left thumb remains unchanged on today's evaluation. Plan Continue current supportive care. Continue TPN. Support. We'll start the patient on some enteral feeding at a low rate and assess the patient's ability to tolerate enteral feeding. No pressors for now. Continue IV Lasix. May gradually wean off the TPN and discontinue if the patient is able to go up to goal in terms of enteral feeding. Monitor the subcutaneous emphysema. Watch for any signs of pneumothorax. Unable today to make any adjustment a mechanical ventilator as the patient's oxygenation and ventilation is quite borderline. We'll continue to follow. Condition is critical. Carries a high mortality based on the above-mentioned comorbidities. The sedation was done and more than 35 minutes. Case was discussed with the general surgeon. Time with Patient: Greater than 30
--- NOTE | 2018-08-12 15:32 | PN ---
PROGRESS NOTE This is a 58-year-old female. She has multiple medical problems. Patient is on a vent. Patient had a line placed at the time of exploratory laparotomy and then patient developed some discoloration of the left hand thumb. Patient at that time was on Levophed and she was very high risk. We could not start heparin on the same day; we started heparin the next day. Patient had discoloration of the left hand, thumb area involving the distal phalanx. Patient's left radial artery is occluded, ulnar artery by the Doppler. Patient has marked swelling on the dorsal aspect of the foot and the left arm. The patient is scheduled to have a trach. Prognosis guarded. I have discussed in detail with the and the family member. Patient will need possible amputation of the distal phalanx. At this point, we are waiting for demarcation. Prognosis is guarded. Discussed with the family today again. MMODL / IJN: [id number] /
[2018-08-12 16:46] LABS: Glucose,Whole Blood 158 mg/dL (75-99)
[2018-08-12] MEDS: POTASSIUM CHLORIDE 20 MEQ in WATER FOR INJECTION 1 100ML.BAG IVPB SCH ×2 (17:00→20:39)
[2018-08-12] MEDS: MVI, ADULT NO.4 WITH VIT K 10 ML, TRACE (CONC-1ML/DOSE) 1 ML, PARENTERAL ELECTROLYTES 2... IV SCH ×4 (17:01)
--- NOTE | 2018-08-12 17:38 | PN ---
PROGRESS NOTE DATE OF SERVICE: 08/12/2018 REASON FOR FOLLOWUP: Abdominal sepsis. INTERVAL HISTORY: The patient is currently afebrile. The patient is hemodynamically stable, currently off the pressor support, currently in the process of being started on tube feeds. The patient remains sedated on the vent. PHYSICAL EXAMINATION: Blood pressure is 112/67 with a pulse of 81, temperature 98. She is 96% with 75% FiO2. General description is a middle-aged female lying in bed in no distress. RESPIRATORY SYSTEM: Unlabored breathing with decreased breath sounds at the base. HEART: S1, S2. Regular rate and rhythm. ABDOMEN: Soft. EXTREMITIES: Three plus edema of feet. LABS: Hemoglobin 9.7, white count 22.8 with a BUN of 44, creatinine 0.97. Repeat blood culture has been negative so far. DIAGNOSTIC IMPRESSION AND PLAN: Patient with abdominal sepsis in this patient who did have extensive abdominal surgery. The patient is currently broadly covered with Zosyn and vancomycin and antifungal, to continue. Advised to remove the arterial line; that may be the source of infection. present at bedside. His questions were answered. MMODL / IJN: [id number] /
[2018-08-12 18:32] LABS: Glucose,Whole Blood 167 mg/dL (75-99)
[2018-08-12 20:39] LABS: Glucose,Whole Blood 180 mg/dL (75-99)
[2018-08-12 22:47] LABS: Glucose,Whole Blood 199 mg/dL (75-99)
[2018-08-13] MEDS: PIPERACILLIN-TAZOBACTAM 3.375 GM in SODIUM CHLORIDE 0.9% 100 ML IVPB SCH ×3 (00:33→15:21)
[2018-08-13] MEDS: METOCLOPRAMIDE 5 MG/ML 2 ML VIAL IVP SCH ×4 (00:33→17:17)
[2018-08-13] MEDS: HYDROCORTISONE SUCCINATE 100 MG/2 ML VIAL IV SCH ×3 (00:33→15:07)
[2018-08-13 01:32] LABS: Potassium 3.1 mmol/L (3.5-5.1)
[2018-08-13 01:34] LABS: ALT 59 U/L (9-52); AST 62 U/L (14-36); Albumin 1.9 g/dL (3.5-5.0); Alkaline Phosphatase 238 U/L (38-126); Blood Urea Nitrogen 44 mg/dL (7-17); Calcium 7.9 mg/dL (8.4-10.2); Carbon Dioxide 27 mmol/L (22-30); Chloride 109 mmol/L (98-107); Glucose 215 mg/dL (74-99); Phosphorus 3.6 mg/dL (2.5-4.5); Total Bilirubin 0.8 mg/dL (0.2-1.3); Total Protein 4.5 g/dL (6.3-8.2)
[2018-08-13 01:35] LABS: Anion Gap 6 mmol/L; Sodium 142 mmol/L (137-145)
[2018-08-13] MEDS ORDERED: Potassium Replacement Protocol 1 EACH MISC MISCELLANE PRN (01:45)
[2018-08-13] MEDS: POTASSIUM CHLORIDE 20 MEQ in WATER FOR INJECTION 1 100ML.BAG IVPB SCH ×2 (01:57→04:00)
[2018-08-13 02:37] LABS: Glucose,Whole Blood 223 mg/dL (75-99)
[2018-08-13] MEDS: IPRATROPIUM-ALBUTEROL 3 ML NEB INHALATION PRN (03:20)
[2018-08-13 04:19] LABS: Glucose,Whole Blood 211 mg/dL (75-99)
[2018-08-13 05:21] LABS: ABG Base Excess 1.9 mmol/L; ABG HCO3 28 mmol/L (21-25); ABG Oxygen Saturation 96.7 % (94-97); ABG PCO2 54 mmHg (35-45); ABG PH 7.33 (7.35-7.45); ABG PO2 88 mmHg (83-108); ABG TCO2 30 mmol/L (19-24)
[2018-08-13] MEDS: VANCOMYCIN 1,500 MG in SODIUM CHLORIDE 0.9% 250 ML IVPB SCH (05:55)
[2018-08-13] MEDS: SODIUM CHLORIDE 0.45% 1,000 ML IV SCH (05:55)
[2018-08-13] MEDS: PROPOFOL 1,000 MG in EMPTY BAG 1 BAG IV SCH ×5 (06:15→20:56)
[2018-08-13 07:31] LABS: Anisocytosis Slight; HCT 33.8 % (34.0-46.0); HGB 10.7 gm/dL (11.4-16.0); Hypochromasia Moderate; MCH 29.4 pg (25.0-35.0); MCHC 31.6 g/dL (31.0-37.0); Poikilocytosis Slight; RBC 3.63 m/uL (3.80-5.40); RDW 18.2 % (11.5-15.5); WBC 20.4 k/uL (3.8-10.6)
[2018-08-13 07:45] LABS: Glucose,Whole Blood 190 mg/dL (75-99)
[2018-08-13 07:54] LABS: Platelet Count 81 k/uL (150-450)
[2018-08-13 08:27] LABS: ALT 52 U/L (9-52); AST 58 U/L (14-36); Albumin 1.9 g/dL (3.5-5.0); Alkaline Phosphatase 219 U/L (38-126); Anion Gap 5 mmol/L; Blood Urea Nitrogen 44 mg/dL (7-17); Calcium 7.9 mg/dL (8.4-10.2); Carbon Dioxide 26 mmol/L (22-30); Chloride 113 mmol/L (98-107); Glucose 196 mg/dL (74-99); Potassium 3.7 mmol/L (3.5-5.1); Sodium 144 mmol/L (137-145); Total Bilirubin 0.7 mg/dL (0.2-1.3); Total Protein 4.4 g/dL (6.3-8.2)
[2018-08-13] MEDS: CHLORHEXIDINE GLUCONATE 15 ML CUP MUCOUS MEM SCH ×2 (08:45→20:56)
[2018-08-13] MEDS: PANTOPRAZOLE 40 MG/10 ML VIAL IVP SCH (08:45)
[2018-08-13] MEDS: FUROSEMIDE 10 MG/ML 4 ML VIAL IV SCH (08:45)
--- NOTE | 2018-08-13 09:22 | XR ---
EXAMINATION TYPE: XR chest 1V portable DATE OF EXAM: 08/13/2018 COMPARISON: 08/12/2018 INDICATION: ARDS TECHNIQUE: Single frontal view of the chest is obtained. FINDINGS: The heart size is normal. The pulmonary vasculature is prominent. There is diffuse increased lung markings. This is improving from comparison. Residual remains in the right perihilar region and left lower lobe. Left central venous catheter is present with the tip in the proximal right atrial region. Endotrachea l tube tip is above the suresh. Nasogastric tube transverses the thorax. There is extensive subcutaneous emphysematous changes present bilaterally. No obvious pneumothorax is identified. Continued follow-up is recommended. This is improving from comparison. IMPRESSION: 1. Extensive subcutaneous emphysema is improving from comparison. No obvious pneumothorax is evident. 2. Left lower lobe infiltrate and right perihilar infiltrate. Findings can be compatible with a RDS w hich is improving from comparison.
--- NOTE | 2018-08-13 09:30 | P.PN ---
Subjective Progress Note Date: 08/13/18 Principal diagnosis: Patient is a 58-year-old female with no significant past medical history o who presented to the emergency department at the recommendations of her PCP for dehydration, nausea, and vomiting. In the emergency department she underwent an extensive evaluation. Computed tomography scan of the abdomen showed diverticular abscess with partial bowel obstruction she was admitted for further management. Initial laboratory analysis showed a sodium of 132, carbon dioxide 21, and a negative urinalysis. She was started on IV fluids, antibiotics and was admitted. General surgery was consulted. Patient initially wanted conservative management did not want surgery. Interventional radiology was consulted and she underwent abscess ranges placement of percutaneous drain on 07/28/18. She was found to have an elevated PTT and hematology was consulted. They felt that this was likely due to poor nutritional intake and ordered additional vitamin K. Her PT INR normalized with additional vitamin K. She was seen by ID who discontinue meropenem and started her on Zosyn. She had initially been progressing well. Overnight on she developed increasing pain and nausea. She started requiring IV narcotics for treatment of her pain. She then became tachycardic. Morning blood work on 07/30 showed a depressed white blood cell count at 2.5, and carbon dioxide of 12. Stat CT with IV contrast as well as a stat lactic acid and a [address] abdomen and pelvis showed free air. Case discussed with Dr. Jacobson and patient was taken urgently to the operating room for ex-lap due to perforated viscus. During the procedure, the patient was noted to have fecal peritonitis and underwent a sigmoid colectomy with end colostomy. She was transferred to the ICU post-operatively and was started on IV pressors. The patient was extubated on 07/31/18. However, she continued to require Levophed. ID recommended the patient to be switched to Unasyn and Flagyl. A random cortisol level was drawn and was 22, for which patient was started on hydrocortisone for suspected adrenal insufficiency. On 08/02 the patient developed respiratory distress and was re-intubated. She was also noted to have L thumb discoloration with history of art line placement on that wrist. Vascular surgery was consulted and did not recommend urgent surgical intervention. Her pressors were able to taken off momentarily on 08/06 but required to be restarted on 08/07. She had a dusky appearance to the wound edges and was taken back to the OR on 08/09 and underwent small bowel resection with abdominal wound debridement. patiently currently on mechanical ventilator and sedated on propofol also on fentanyl drip for pain and comfort continues to remain normotensive. Patient had runs of nonsustained paroxysmal SVT that resolved spontaneously, currently receiving trickle enteral feeds with TPN. Continues to be afebrile, anasarca is significantly improved today. Patient with facial due to swelling subcutaneous emphysema and anasarca. Gen. surgery planning to place tracheostomy tomorrow. Patient's potassium level this morning at 3.1 has been replaced recheck pending. Blood sugars mildly elevated continue correctional scale coverage. White count is down to 20 today, hemoglobin steady at 10.7 Objective - Vital Signs Vital signs: Vital Signs Temp 97.5 F L 08/13/18 09:00 Pulse 89 08/13/18 09:00 Resp 30 H 08/13/18 09:00 BP 99/72 08/13/18 02:00 Pulse Ox 96 08/13/18 09:00 Intake & Output 08/12/18 08/13/18 08/13/18 18:59 06:59 18:59 Intake Total 1979.282 940.053 235.913 Output Total 2240 2095 210 Balance -260.718 -1154.947 25.913 Weight 78.5 kg Intake: IV 536 716 171 Anidulafungin 100 mg In 100 Sodium Chloride 0.9% 100 ml @ 84 mls/hr IVPB DAILY JESSICA Rx#:[id number] Fentanyl 5 Piperacillin-Tazobactam 3 100 200 .375 gm In Sodium Chloride 0.9% 100 ml @ 25 mls/hr IVPB Q8HR JESSICA Rx# :[id number] Potassium Chloride 10 meq 100 In Water For Injection 1 100ml.bag @ 100 mls/hr IVPB Q1H JESSICA Rx#: [id number] Potassium Chloride 20 meq 150 In Water For Injection 1 100ml.bag @ 50 mls/hr IVPB Q2H JESSICA Rx#: [id number] Pressure bag 6 66 6 Sodium Chloride 0.45% 1, 200 200 40 000 ml @ 20 mls/hr IV . Q24H JESSICA Rx#:[id number] Vancomycin 1,500 mg In 125 Sodium Chloride 0.9% 250 ml @ 125 mls/hr IVPB Q12H JESSICA Rx#:[id number] Vancomycin 1,500 mg In 125 Sodium Chloride 0.9% 250 ml @ 125 mls/hr IVPB Q24H JESSICA Rx#:[id number] Intake, IV Titration 1433.282 224.053 24.913 Amount Insulin Regular 100 unit 24.357 14.746 24.913 In Sodium Chloride 0.9% 100 ml @ Per Protocol IV .Q0M JESSICA Rx#:[id number] Mvi, Adult No.4 with Vit 977.25 K 10 ml Trace (Conc-1Ml/ Dose) 1 ml Parenteral Electrolytes 20 ml In Amino Acid 5%-D15w 1,000 ml @ 45 mls/hr IV . [id number] JESSICA Rx#:[id number] Norepinephrine 32 mg In 0 Sodium Chloride 0.9% 250 ml @ 0.1 MCG/KG/MIN 4.28 mls/hr IV .Q24H JESSICA Rx#: [id number] Potassium Chloride 20 meq 100 In Water For Injection 1 100ml.bag @ 50 mls/hr IVPB Q2H JESSICA Rx#: [id number] Propofol 1,000 mg In 248.259 197.175 Empty Bag 1 bag @ Titrate IV .Q0M JESSICA Rx#: [id number] fentaNYL (PF) 1,000 mcg 83.416 12.132 In Sodium Chloride 0.9% 80 ml @ 0.62 MCG/KG/HR 5. 02 mls/hr IV .[id number] JESSICA Rx#:[id number] Tube Feeding 10 40 Output: Drainage 120 Right Abdomen 120 Urine 1720 1995 210 Stool 400 100 Other: Voiding Method Indwelling Catheter Indwelling Catheter # Voids 2 ABP, PAP, CO, CI - Last Documented Arterial Blood Pressure 135/57 - Exam Constitutional: Intubated currently on mechanical ventilator, OG/OT tubes in place Eyes: Anicteric sclerae, moist conjunctiva, no lid-lag, PERRLA ENMT: NC/AT,Oropharynx clear, no erythema, exudates Neck:Supple, FROM, no masses, or JVD, No carotid bruits; No thyromegaly Lungs: Diminished bilaterally with some bibasilar crackles, no wheezes Cardiovascular: Heart regular in rate and rhythm, No murmurs, gallops, or rubs no peripheral edema Abdominal: Soft Nontender, abdominal wound VAC in place with serous drainage evidence of necrosis, functioning colostomy and ileostomy with dark fluid collection in both, hypoactive bowel sounds Skin: Multiple tears with seepage of serous fluid due to anasarca Extremities: Left thumb violaceously discolored dark, unable to palpate Radial pulse which is heard with Doppler Psychiatric: Alert and oriented to person, place and time, Appropriate affect Intact judgement - Labs CBC & Chem 7: 08/13/18 06:00 08/13/18 07:45 Labs: Abnormal Lab Results - Last 24 Hours (Table) 08/12/18 08/12/18 08/12/18 Range/Units 09:49 12:44 13:56 WBC (3.8-10.6) k/uL RBC (3.80-5.40) m/uL Hgb (11.4-16.0) gm/dL Hct (34.0-46.0) % RDW (11.5-15.5) % Plt Count (150-450) k/uL ABG pH (7.35-7.45) ABG pCO2 (35-45) mmHg ABG HCO3 (21-25) mmol/L ABG Total CO2 (19-24) mmol/L Potassium (3.5-5.1) mmol/L Chloride (98-107) mmol/L BUN (7-17) mg/dL Glucose (74-99) mg/dL POC Glucose (mg/dL) 149 H 141 H 121 H (75-99) mg/dL Calcium (8.4-10.2) mg/dL AST (14-36) U/L ALT (9-52) U/L Alkaline Phosphatase (38-126) U/L Total Protein (6.3-8.2) g/dL Albumin (3.5-5.0) g/dL 08/12/18 08/12/18 08/12/18 Range/Units 16:39 18:28 20:25 WBC (3.8-10.6) k/uL RBC (3.80-5.40) m/uL Hgb (11.4-16.0) gm/dL Hct (34.0-46.0) % RDW (11.5-15.5) % Plt Count (150-450) k/uL ABG pH (7.35-7.45) ABG pCO2 (35-45) mmHg ABG HCO3 (21-25) mmol/L ABG Total CO2 (19-24) mmol/L Potassium (3.5-5.1) mmol/L Chloride (98-107) mmol/L BUN (7-17) mg/dL Glucose (74-99) mg/dL POC Glucose (mg/dL) 158 H 167 H 180 H (75-99) mg/dL Calcium (8.4-10.2) mg/dL AST (14-36) U/L ALT (9-52) U/L Alkaline Phosphatase (38-126) U/L Total Protein (6.3-8.2) g/dL Albumin (3.5-5.0) g/dL 08/12/18 08/13/18 08/13/18 Range/Units 22:34 01:00 02:34 WBC (3.8-10.6) k/uL RBC (3.80-5.40) m/uL Hgb (11.4-16.0) gm/dL Hct (34.0-46.0) % RDW (11.5-15.5) % Plt Count (150-450) k/uL ABG pH (7.35-7.45) ABG pCO2 (35-45) mmHg ABG HCO3 (21-25) mmol/L ABG Total CO2 (19-24) mmol/L Potassium 3.1 L (3.5-5.1) mmol/L Chloride 109 H (98-107) mmol/L BUN 44 H (7-17) mg/dL Glucose 215 H (74-99) mg/dL POC Glucose (mg/dL) 199 H 223 H (75-99) mg/dL Calcium 7.9 L (8.4-10.2) mg/dL AST 62 H (14-36) U/L ALT 59 H (9-52) U/L Alkaline Phosphatase 238 H (38-126) U/L Total Protein 4.5 L (6.3-8.2) g/dL Albumin 1.9 L (3.5-5.0) g/dL 08/13/18 08/13/18 08/13/18 Range/Units 04:05 05:17 06:00 WBC 20.4 H (3.8-10.6) k/uL RBC 3.63 L (3.80-5.40) m/uL Hgb 10.7 L (11.4-16.0) gm/dL Hct 33.8 L (34.0-46.0) % RDW 18.2 H (11.5-15.5) % Plt Count 81 L (150-450) k/uL ABG pH 7.33 L (7.35-7.45) ABG pCO2 54 H (35-45) mmHg ABG HCO3 28 H (21-25) mmol/L ABG Total CO2 30 H (19-24) mmol/L Potassium (3.5-5.1) mmol/L Chloride (98-107) mmol/L BUN (7-17) mg/dL Glucose (74-99) mg/dL POC Glucose (mg/dL) 211 H (75-99) mg/dL Calcium (8.4-10.2) mg/dL AST (14-36) U/L ALT (9-52) U/L Alkaline Phosphatase (38-126) U/L Total Protein (6.3-8.2) g/dL Albumin (3.5-5.0) g/dL 08/13/18 08/13/18 Range/Units 07:41 07:45 WBC (3.8-10.6) k/uL RBC (3.80-5.40) m/uL Hgb (11.4-16.0) gm/dL Hct (34.0-46.0) % RDW (11.5-15.5) % Plt Count (150-450) k/uL ABG pH (7.35-7.45) ABG pCO2 (35-45) mmHg ABG HCO3 (21-25) mmol/L ABG Total CO2 (19-24) mmol/L Potassium (3.5-5.1) mmol/L Chloride 113 H (98-107) mmol/L BUN 44 H (7-17) mg/dL Glucose 196 H (74-99) mg/dL POC Glucose (mg/dL) 190 H (75-99) mg/dL Calcium 7.9 L (8.4-10.2) mg/dL AST 58 H (14-36) U/L ALT (9-52) U/L Alkaline Phosphatase 219 H (38-126) U/L Total Protein 4.4 L (6.3-8.2) g/dL Albumin 1.9 L (3.5-5.0) g/dL Microbiology - Last 24 Hours (Table) 08/10/18 18:30 Blood Culture - Preliminary Blood No Growth after 48 hours 08/09/18 16:50 Blood Culture - Preliminary Blood No Growth after 72 hours Assessment and Plan Assessment: Septic shock * Continue with stress dose of Solu-Cortef, levophed weaned off * Appears intravascularly euvolemic with significant improvement off the third spacing after receiving albumin followed by Lasix * Continue with antibiotic regimen of vancomycin and Zosyn and Eraxis * Echocardiogram showed hyperdynamic LV function with an EF of greater than 70 Diverticulitis with abscess and bowel perforation with septic shock s/p sigmoid colectomy, small bowel resection X 2 and appendectomy and debridement of wound necrosis - additional intraabdominal abscess with current open abdominal wound with noted necrosis at the borders of the wound - Surgery recs -Appreciate ID recommendations Acute hypoxemic respiratory failure due ARDS with possible DAD secondary to septic shock - vent management per ICU team, patient with improved oxygenation on today's ABG currently on FiO2 of 75% - CXR reviewed by pulmonary no evidence of pneumomediastinum does have subcutaneous emphysema likely secondary to elevated PEEP's needed for her ARDS * Subcutaneous emphysema appears somewhat improved today - Consider trach in the next few days if no improvement and patient stable Anasarca * Diffuse third spacing much improved appears euvolemic, patient with excellent response and diuresis with pretreated abdomen followed by Lasix * We'll continue with Lasix twice a day * Continues to be hypoalbuminemic ARDS * secondary to septic shock from intra-abdominal infection/abscess/peritonitis -Management per pulmonary - treatment of infections - PEEP at 14, low tidal volume - critical care recs Anemia, dilutational due to prolonged ICU stay - stable - follow CBC - transfuse for HgB <6 Transaminitis - likely due to TPN and hypoperfusion from shock liver - follow liver enzymes Relative adrenal insufficiency - stress dose steroids, wean per pulm/cc recs Hyperglycemia due to steroids and TPN - prediabetes - A1C 6.1, diet modification on discharge - follow BS and continue insulin gtt Post-op ileus - on TPN - NGT to suction - general surgery recs Severe Protein calorie malnutrition - on TPN Left thumb ischemia secondary to radial artery occlusion - vascular surgery recs appreciated, conservative management at this time. - heparin gtt held per surgery Thromboctypenia, reactive to sepsis, improving - follow CBC - HIT AB negative - Oncology recs appreciated AST elevation - monitor on TPN and ABX Hyponatremia, hypokalemia, hypophosphatemia, and hypomagnesemia resolved Coagulopathy, resolved Anion Gap metabolic acidosis, resolved lactic acidosis, improved DVT prophylaxis: Heparin held by general surgery Anticipated discharge: undetermined Place:[facility] A total of 45 minutes, complex care of this patient. (1) Sepsis Current Visit: Yes Status: Acute Code(s): A41.9 - SEPSIS, UNSPECIFIED ORGANISM SNOMED Code(s): 80146482 (2) Colonic diverticular abscess Current Visit: Yes Status: Acute Code(s): K57.20 - DVTRCLI OF LG INT W PERFORATION AND ABSCESS W/O BLEEDING SNOMED Code(s): 714327393 (3) Partial bowel obstruction Current Visit: Yes Status: Acute Code(s): K56.600 - PARTIAL INTESTINAL OBSTRUCTION, UNSPECIFIED TO CAUSE SNOMED Code(s): 33649279 (4) Abdominal pain Current Visit: Yes Status: Acute Code(s): R10.9 - UNSPECIFIED ABDOMINAL PAIN SNOMED Code(s): 28069889 (5) Coagulopathy Current Visit: Yes Status: Resolved Code(s): D68.9 - COAGULATION DEFECT, UNSPECIFIED SNOMED Code(s): 23223730 (6) Constipation Current Visit: Yes Status: Acute Code(s): K59.00 - CONSTIPATION, UNSPECIFIED SNOMED Code(s): 47888208
[2018-08-13] MEDS: IPRATROPIUM-ALBUTEROL 3 ML NEB INHALATION SCH ×4 (09:48→19:25)
[2018-08-13 10:39] LABS: Glucose,Whole Blood 182 mg/dL (75-99)
[2018-08-13] MEDS ORDERED: FUROSEMIDE 10 MG/ML 4 ML VIAL IV STA (10:41)
--- NOTE | 2018-08-13 10:48 | P.PN ---
Progress Note - Text Progress Note Date: 08/13/18 The patient has shown some improvement overnight. Her subcutaneous emphysema has improved. Her white count has improved. Her blood pressure is improved. She has been hemodynamically stable. On exam her vital signs appear stable. Patient is sedated on the ventilator. Ileostomy is functioning. Her wound is stable with some ischemic fat in the wound. The patient's ARDS has improved slightly. We will plan on tracheostomy tomorrow. She'll also have debridement of her abdominal wound performed.
[2018-08-13] MEDS: ANIDULAFUNGIN 100 MG in SODIUM CHLORIDE 0.9% 100 ML IVPB SCH (10:54)
[2018-08-13 12:02] LABS: Glucose,Whole Blood 186 mg/dL (75-99)
[2018-08-13 12:07] LABS: Band Neutrophils % 5 %; Lymphocytes # (M) 0.82 k/uL (1.0-4.8); Metamyelocytes # (M) 0.41 k/uL (0); Metamyelocytes % 2 %; Myelocytes % 1 %; Neutrophils % (M) 88 %; Nucleated Red Blood Cells 0 /100 WBC (0-0); Total Cells Counted 200
[2018-08-13 12:40] LABS: ABG Base Excess 2.1 mmol/L; ABG HCO3 28 mmol/L (21-25); ABG Oxygen Saturation 97.6 % (94-97); ABG PCO2 56 mmHg (35-45); ABG PH 7.31 (7.35-7.45); ABG PO2 101 mmHg (83-108); ABG TCO2 30 mmol/L (19-24)
[2018-08-13 14:04] LABS: Glucose,Whole Blood 188 mg/dL (75-99)
[2018-08-13] MEDS: NOREPINEPHRINE 32 MG in SODIUM CHLORIDE 0.9% 250 ML IV SCH (14:05)
--- NOTE | 2018-08-13 14:31 | P.PN ---
Subjective Progress Note Date: 08/13/18 A 58-year-old female patient was being seen in the follow-up in the intensive care unit. The patient has a complicated history of perforated diverticulitis with abscess formation and the patient has undergone expiratory laparotomy with sigmoid colectomy and colostomy and appendicectomy and the patient is postop day #8. The patient's course was complicated by development of sepsis which is secondary to intra-abdominal source. A previous fine-needle aspirate of the abdominal abscesses yielded gram-negative and anaerobes and the patient is currently on broad-spectrum antibiotics including a combination of Unasyn and Flagyl. The patient also developed acute hypoxic respiratory failure secondary to ARDS. The patient to be reintubated on 08/01/2018 and the patient has been intubated since. In terms of her condition, the patient remains on a mechanical ventilator on assist control mode. Today the tidal volume of 350, FiO2 of 60%, PEEP of 8 and a respiratory rate of 22. Chest x-ray showed diffuse bilateral pulmonary infiltrates. The lines are in good location. ET tube is in a good location. CVP is at 10. The morning blood gases showed a pH of 7.39 with a pCO2 of 48 and pO2 of 74 and this was on FiO2 of 60%. No significant orotracheal secretions. From the neurologic standpoint, the patient is sedated with Diprivan and she is calm and comfortable and success with the mechanical ventilator. From the hemodynamic standpoint, the patient CVP is at 10. The patient was on pressors and the patient was and 6 mics of norepinephrine infusion for hemodynamic support.. She has however developed significant amount of edema in all 4 extremities patient upper extremities bilaterally and she will benefit from diuresis. She is on TPN for nutritional support. She is receiving TPN through the triple-lumen catheter. The patient is still sedated with Diprivan and the Diprivan is running at 45 mics per KG per minute and the patient on insulin drip for blood sugar control. In terms of her abdominal finding, the patient has developed some necrosis along the open wound edges bilaterally. The wound VAC is in place. There is considerable amount of output through the wound VAC and output is quite dark and cloudy. Her white cell count is at 9.9. Her serum albumin is down to 1.4 with a total protein of 3.3. Renal function is stable for now. On 08/08/2018, the patient remains critically ill. The plan is to take this patient to the operating room for another abdominal washout and debridement knowing that she had developed some necrosis along the wound surface. The wound VAC was stopped yesterday. The patient is sedated with Diprivan and she is calm and comfortable. The prednisone running at 20 mics. She remains on a mechanical ventilator. This morning she was a tidal volume of 350 with an FiO2 of 60% and a PEEP of 8 and the respiratory rate of 22. As mentioned earlier, the patient is an ARDS with diffuse but the pulmonary infiltrates and there is interval worsening in her oxygenation and in the bilateral pulmonary infiltrates seen on today's chest x-ray. The blood gases from this morning showed a pH of 42 with a pCO2 of 47 and pO2 of 65.. Based on further drop in the pulse ox, increase the PEEP up to 12 L and it his FiO2 up to 70%. A repeat blood gases is pending and will need to fix her oxygenation prior to this patient going to the operating room. The patient is still on pressors. The patient has responded to Lasix 20 mg IV every 12 hours and the neck fluid balance is negative over the past 24 hours. She is producing adequate amount of urine output. She continues to have extensive edema in the upper and lower extremities. The left thumb is still necrotic. The patient is still requiring pressors and the dose being titrated to keep a mean artery pressure above 65. She is in the order of 5-6 g of norepinephrine infusion. The patient is on Diprivan which is running at 45 mg per KG per minute. She is also on insulin drip for blood sugar control. The wound VAC is still draining extensively, and order of probably 1 L on a 24-hour period. The patient is severely hypoproteinemic and hypoalbuminemic despite being on TPN for discharge and support. Antibiotic coverage remains unchanged. The patient remains on stress dose hydrocortisone. On today's evaluation of 08/09/2008 Seeing this patient for a follow-up. The patient is doing very poorly. Events occurring yesterday was noted. The patient was taken again to the operating room and the patient was found to have residual abscess. She underwent expiratory laparotomy, small bowel resection with ileostomy and drainage of intraperitoneal localized abscess near the previous small bowel anastomosis. There was also ongoing with infection and was debrided. Postop the patient was brought back to the intensive care units. The patient is still sedated with Diprivan which is running at 35 mics. The patient was somewhat asynchronous with the mechanical ventilator. I thought this was a pain related problem and for that reason the patient was given a dose of fentanyl 50 g to which she responded nicely and she'll be started also on a fentanyl drip. She is on a mechanical ventilator on assist control mode. As mentioned earlier in her chest x-ray showing diffuse but the pulmonary infiltrates consistent with ARDS. I was having some issues with oxygen desaturation. The PEEP is currently at 14 with an FiO2 of 85%. She is tidal volume is at 350 and the rate is at 24. The peak airway pressures around 34 with metastatic a pressure of around 28. Chest x-ray findings are essentially stable with diffuse bilateral pulmonary infiltrates. ET tube is in a good location. The most recent blood gas showed a pH of 7.35 with a pCO2 of 52 and pO2 of 57. The patient is on broad-spectrum antibiotics. Antibiotic coverage includes a combination of Zosyn and vancomycin and Anidulafungin. The patient is still requiring pressors. Norepinephrine infusion is running at 8 g per KG per minute. Urine output is adequate for now and the patient is producing more than 25-30 mL of urine output on an hourly basis. She continues to have extensive edema in all 4 extremities. She has weeping and fluid seeping from her skin surface in lower extremities and arms. She has areas of skin break in lower extremities and appropriate dressing has been applied. The abdominal wound is packed. The patient has some drainage in the colostomy back and some drainage also in the ileostomy bag. She is receiving TPN for the chest support which is being provided to her through the left subclavian triple-lumen catheter. Remains on stress dose hydrocortisone. Neck fluid balance over the past 24 hours has been +192 mL. On 08/10/2018, the patient remains intubated on a mechanical ventilator. She is sedated with Diprivan and fentanyl drip was added yesterday for comfort and pain reasons. The throat is running at 35 mics and fentanyl is at 50 mics. The patient is well sedated. She is a mechanical ventilator. Her FiO2 is up to 85% with a 14 of PEEP with a tidal volume of 350. Respirations are 24. The patient remains an ARDS with diffuse bilateral pulmonary infiltrates. I reviewed the blood gases from this morning and the blood gases showed a pH of 7.2 with episode of 68 and pO2 of 75. Based on that I think his respiratory rate up to 30. Chest x-ray showing bilateral pulmonary infiltrates. The findings are essentially stable compared to yesterday. ET tube is in a good location. The patient remains pressor dependent. She is on 2 mics of norepinephrine infusion at this point in time. Echocardiogram was done and patient is hyperdynamic with an ejection fraction of 70%. No evidence of the valvular abnormalities. She has no significant pulmonary hypertension. She is afebrile. Antibiotics have been adjusted and the patient is currently on a combination of Zosyn, vancomycin and Eraxis. The patient is profoundly hypoproteinemic and the is third spacing and fluid is seeping from the skin surface both in the upper and lower extremities and fluid is also seeping from the one surface noted the patient has an open abdominal wounds. Ileostomy and colostomy sites are unchanged and there is some dark material collecting in the bags. No major change in her condition compared to yesterday. She seems the more symptoms the mechanical ventilator. A comfort level is improved with the addition of fentanyl. The neck fluid balance is less than 1.5 L over the past 24 hours. On 08/11/2018, the patient remains on a mechanical ventilator. There has been some changes in her physical appearance of the patient's face and neck and anterior chest has been swollen. The patient developed subcutaneous emphysema and this has been confirmed on a chest x-ray that was done earlier this morning. No evidence of any pneumothorax. No evidence of any significant pneumomediastinum. This isn't anticipated complication of mechanical ventilation ARDS. I still have the patient FiO2 of 85% this morning with a PEEP of 14 and tidal volume of 350 with a respiratory rate of 24. Peak pressures around 30 for metastatic air pressure of around 28-29. Chest x-ray findings is showing extensive subcutaneous emphysema. ET tube is in a good location. The patient is still oxygenating and ventilating adequately knowing that the morning blood gas showed a pH of 7.29 with a pCO2 of 60 and pO2 of 100 and this was on FiO2 of 85%. Hemodynamically, the patient was able to come off pressors. She is maintaining her on blood pressure. Nevertheless hemoglobin dropped down to 5.2 without evidence of any external bleeding and the patient will be undergoing packed RBC transfusion a total of 2 today. She is still covered with broad-spectrum antibiotics with a combination of Eraxis, Zosyn and vancomycin. No new cultures are available it with exception of a coagulase- negative staph that was identified in the blood. The patient is afebrile. She is not tachycardic. She is maintaining a low blood pressure that she is off pressors. She is receiving TPN for nutritional support. She obviously has a extensive third spacing and seepage of fluid from the skin surface all over. Her serum albumin is down to 1.7. She remains on stress dose hydrocortisone. In terms of sedation, I felt that she is slightly oversedated on today's evaluation. I asked to cut down the Diprivan which is running at 35 g per KG per minute pH is also on fentanyl drip at 50 mics . The abdominal wound is unchanged. Local dressing and wound care is being applied. Ileostomy and colostomy sites are showing some liquid material and the viable on today's evaluation. On today's evaluation of 08/12/2018, no major changes this patient's condition. The patient remains an ARDS. The patient remains intubated on a mechanical ventilator. The patient has developed some worsening in the subQ emphysema yet this is mainly in her neck and chest area and upper shoulders. Based on that, I did some horizontal incision over the anterior chest to deflate some of the cutaneous air. Otherwise, the patient remains on the same vent setting which includes an assist-control of 24, tidal volume of 350, PEEP of 14 and FiO2 of 75 %. The morning blood gases showed a pH of 7.33 with a pCO2 of 54 and pO2 of 70 and this was done and FiO2 of 35%. Peak air pressures around 36 and static air pressures around 32. Chest x-ray shows no evidence of pneumothorax. No known mediastinum. There is extensive subcutaneous emphysema. The patient is afebrile. The patient is on TPN for nutritional support. The patient is maintaining her on blood pressure without being placed on pressors. The patient is being diuresis IV Lasix 40 mg every 12 hours. She is barely in a 0 fluid balance. Otherwise, the abdominal wounds remains unchanged. The ileostomy site is showing some liquid examination of the back. Colostomy site is also unchanged. The patient has extensive swelling and edema and she started having fluid seeping from the skin surface. She is obviously sedated. She is not paralyzed for now. Antibiotic combination of Zosyn, vancomycin and Eraxis. On 08/13/2018, the patient remains sedated on a mechanical ventilator. Her success emphysema seems to have improved as the patient had a decompression skin incision over the anterior chest yesterday. Since then, there is improvement in the saphenous emphysema and she seems to be less distended and her face and neck and chest area. The patient is sedated with Diprivan she is calm and comfortable and sickness with a mechanical ventilator. This morning, she does not tidal volume of 350 with a PEEP of 14 FiO2 of 75% with a rate of 24. The blood gases from today showed a pH of 7.33 with a pCO2 of 54 and pO2 of 70. Chest x-ray still showing bilateral pulmonary infiltrates. This appearance emphysema. There were pressures are improved compared to yesterday. I think that the patient is less stiff compared to yesterday. Based on that, I gradually dropped down to PEEP to 12. I repeated the blood gas that showed improvement in oxygenation. Her current pH is at 7.31 with a pCO2 of 56 and pO2 of 101. Based on all this, I'm going to further wean down the FiO2 ambulate on the PEEP. The plan is to proceed with a tracheostomy tube insertion tomorrow if things remain unchanged and the patient remains stable. Hemodynamically, she is very stable. She is on no pressors. She is taking Lasix 40 mg IV and this will be going once a day. The patient is producing good urine output. Her net fluid balance is slightly positive. The patient is having fluid seepage from the skin surface. Overall edema improved compared to yesterday. In terms of her abdominal findings, colostomy site is nonfunctional. Ileostomy site is functioning the patient was given low-dose enteral feedings yesterday in the form of vitamin 1.2 and this is running at 10 mL an hour. We may consider increasing the rate in lung and the patient is tolerating her tube feeds. No significant leukocytosis. No fever. She continues to have a right radial art line catheter dissected which is clean. No signs of any digital ischemia. The patient has a necrotic left thumb tip which occurred at the time of profound sepsis and hypotension and the patient had a art line catheter in her left leg artery back and it was removed. Otherwise, her abdominal wound was inspected. The patient has some limited necrosis along the wound edges specially in the fat planes onset tissue. This may need to be depleted at a later stage. Currently she has packing and dressing applied. Objective - Vital Signs Vital signs: Vital Signs Temp 97.5 F L 08/13/18 09:00 Pulse 92 08/13/18 14:00 Resp 32 H 08/13/18 14:00 BP 99/72 08/13/18 02:00 Pulse Ox 94 L 08/13/18 14:00 Intake & Output 08/12/18 08/13/18 08/13/18 18:59 06:59 18:59 Intake Total 1979.282 940.053 415.594 Output Total 2240 2095 1585 Balance -260.718 -1154.947 -1169.406 Weight 78.5 kg Intake: IV 536 716 251 Anidulafungin 100 mg In 100 Sodium Chloride 0.9% 100 ml @ 84 mls/hr IVPB DAILY JESSICA Rx#:[id number] Fentanyl 5 Piperacillin-Tazobactam 3 100 200 .375 gm In Sodium Chloride 0.9% 100 ml @ 25 mls/hr IVPB Q8HR JESSICA Rx# :[id number] Potassium Chloride 10 meq 100 In Water For Injection 1 100ml.bag @ 100 mls/hr IVPB Q1H JESSICA Rx#: [id number] Potassium Chloride 20 meq 150 In Water For Injection 1 100ml.bag @ 50 mls/hr IVPB Q2H JESSICA Rx#: [id number] Pressure bag 6 66 6 Sodium Chloride 0.45% 1, 200 200 120 000 ml @ 20 mls/hr IV . Q24H JESSICA Rx#:[id number] Vancomycin 1,500 mg In 125 Sodium Chloride 0.9% 250 ml @ 125 mls/hr IVPB Q12H JESSICA Rx#:[id number] Vancomycin 1,500 mg In 125 Sodium Chloride 0.9% 250 ml @ 125 mls/hr IVPB Q24H JESSICA Rx#:[id number] Intake, IV Titration 1433.282 224.053 124.594 Amount Insulin Regular 100 unit 24.357 14.746 44.210 In Sodium Chloride 0.9% 100 ml @ Per Protocol IV .Q0M JESSICA Rx#:[id number] Mvi, Adult No.4 with Vit 977.25 K 10 ml Trace (Conc-1Ml/ Dose) 1 ml Parenteral Electrolytes 20 ml In Amino Acid 5%-D15w 1,000 ml @ 45 mls/hr IV . [id number] JESSICA Rx#:[id number] Norepinephrine 32 mg In 0 Sodium Chloride 0.9% 250 ml @ 0.1 MCG/KG/MIN 4.28 mls/hr IV .Q24H JESSICA Rx#: [id number] Potassium Chloride 20 meq 100 In Water For Injection 1 100ml.bag @ 50 mls/hr IVPB Q2H JESSICA Rx#: [id number] Propofol 1,000 mg In 248.259 197.175 80.384 Empty Bag 1 bag @ Titrate IV .Q0M JESSICA Rx#: [id number] fentaNYL (PF) 1,000 mcg 83.416 12.132 In Sodium Chloride 0.9% 80 ml @ 0.62 MCG/KG/HR 5. 02 mls/hr IV .[id number] JESSICA Rx#:[id number] Tube Feeding 10 40 Output: Drainage 120 Right Abdomen 120 Urine 1720 1995 1485 Stool 400 100 100 Other: Voiding Method Indwelling Catheter Indwelling Catheter Indwelling Catheter # Voids 2 2 ABP, PAP, CO, CI - Last Documented Arterial Blood Pressure 137/63 - Exam Gen. appearance the patient is intubated, the patient has developed extensive facial neck upper chest and upper extremity swelling secondary to subcutaneous emphysema development a complication of mechanical ventilation. The patient is sedated and the patient is on the mechanical ventilator. Orogastric and orotracheal tube are both in place. The patient's neck and upper chest is less distended compared to yesterday and there is some improvement in symptoms since emphysema. Head exam was generally normal. There was no scleral icterus or corneal arcus. Mucous membranes were moist. Neck was supple and without jugular venous distension, thyromegaly, or carotid bruits. Carotids were easily palpable bilaterally. There was no adenopathy. The patient has a triple lumen catheter in the left subclavian. The patient also has orogastric and orotracheal tube. Lungs are diminished bilaterally and there is some few basilar crackles heard in the mid and lower lung aguilera bilaterally. No wheezing. Cardiac exam revealed the PMI to be normally situated and sized. The rhythm was regular and no extrasystoles were noted during several minutes of auscultation. The first and second heart sounds were normal and physiologic splitting of the second heart sound was noted. There were no murmurs, rubs, clicks, or gallops. Abdomen exam is soft and the abdominal wound VAC is in place with serous drainage. There is evidence of necrosis of the subcutaneous tissue along the wound borders bilaterally. The patient has a functioning colostomy. There is minimal amount of output and the tissue still viable. Bowel sounds are hypoactive. The patient has an ileostomy and the patient has a colostomy. There is some liquid the dark material collecting and both bags. Extremities are showing extensive edema in all 4 extremities pressure in the upper extremities bilaterally. Neurologic the patient is sedated, comfortable not in acute distress. Exertional skin shows that the skin is poorly perfused. There is some moderate amount of skin weeping and upper extremities bilaterally. Abdominal wound is packed. The patient continues to have extensive amount of swelling and skin weeping and breakdown and this is all over. The overall edema seems to be improved compared to yesterday. The tip of the left thumb is necrotic. - Labs CBC & Chem 7: 08/13/18 06:00 08/13/18 07:45 Labs: Abnormal Lab Results - Last 24 Hours (Table) 08/12/18 08/12/18 08/12/18 Range/Units 13:56 16:39 18:28 WBC (3.8-10.6) k/uL RBC (3.80-5.40) m/uL Hgb (11.4-16.0) gm/dL Hct (34.0-46.0) % RDW (11.5-15.5) % Plt Count (150-450) k/uL Neutrophils # (Manual) (1.3-7.7) k/uL Lymphocytes # (Manual) (1.0-4.8) k/uL Metamyelocytes # (Man) (0) k/uL Myelocytes # (Manual) (0) k/uL ABG pH (7.35-7.45) ABG pCO2 (35-45) mmHg ABG HCO3 (21-25) mmol/L ABG Total CO2 (19-24) mmol/L ABG O2 Saturation (94-97) % Potassium (3.5-5.1) mmol/L Chloride (98-107) mmol/L BUN (7-17) mg/dL Glucose (74-99) mg/dL POC Glucose (mg/dL) 121 H 158 H 167 H (75-99) mg/dL Calcium (8.4-10.2) mg/dL AST (14-36) U/L ALT (9-52) U/L Alkaline Phosphatase (38-126) U/L Total Protein (6.3-8.2) g/dL Albumin (3.5-5.0) g/dL 08/12/18 08/12/18 08/13/18 Range/Units 20:25 22:34 01:00 WBC (3.8-10.6) k/uL RBC (3.80-5.40) m/uL Hgb (11.4-16.0) gm/dL Hct (34.0-46.0) % RDW (11.5-15.5) % Plt Count (150-450) k/uL Neutrophils # (Manual) (1.3-7.7) k/uL Lymphocytes # (Manual) (1.0-4.8) k/uL Metamyelocytes # (Man) (0) k/uL Myelocytes # (Manual) (0) k/uL ABG pH (7.35-7.45) ABG pCO2 (35-45) mmHg ABG HCO3 (21-25) mmol/L ABG Total CO2 (19-24) mmol/L ABG O2 Saturation (94-97) % Potassium 3.1 L (3.5-5.1) mmol/L Chloride 109 H (98-107) mmol/L BUN 44 H (7-17) mg/dL Glucose 215 H (74-99) mg/dL POC Glucose (mg/dL) 180 H 199 H (75-99) mg/dL Calcium 7.9 L (8.4-10.2) mg/dL AST 62 H (14-36) U/L ALT 59 H (9-52) U/L Alkaline Phosphatase 238 H (38-126) U/L Total Protein 4.5 L (6.3-8.2) g/dL Albumin 1.9 L (3.5-5.0) g/dL 08/13/18 08/13/18 08/13/18 Range/Units 02:34 04:05 05:17 WBC (3.8-10.6) k/uL RBC (3.80-5.40) m/uL Hgb (11.4-16.0) gm/dL Hct (34.0-46.0) % RDW (11.5-15.5) % Plt Count (150-450) k/uL Neutrophils # (Manual) (1.3-7.7) k/uL Lymphocytes # (Manual) (1.0-4.8) k/uL Metamyelocytes # (Man) (0) k/uL Myelocytes # (Manual) (0) k/uL ABG pH 7.33 L (7.35-7.45) ABG pCO2 54 H (35-45) mmHg ABG HCO3 28 H (21-25) mmol/L ABG Total CO2 30 H (19-24) mmol/L ABG O2 Saturation (94-97) % Potassium (3.5-5.1) mmol/L Chloride (98-107) mmol/L BUN (7-17) mg/dL Glucose (74-99) mg/dL POC Glucose (mg/dL) 223 H 211 H (75-99) mg/dL Calcium (8.4-10.2) mg/dL AST (14-36) U/L ALT (9-52) U/L Alkaline Phosphatase (38-126) U/L Total Protein (6.3-8.2) g/dL Albumin (3.5-5.0) g/dL 08/13/18 08/13/18 08/13/18 Range/Units 06:00 07:41 07:45 WBC 20.4 H (3.8-10.6) k/uL RBC 3.63 L (3.80-5.40) m/uL Hgb 10.7 L (11.4-16.0) gm/dL Hct 33.8 L (34.0-46.0) % RDW 18.2 H (11.5-15.5) % Plt Count 81 L (150-450) k/uL Neutrophils # (Manual) 18.90 H (1.3-7.7) k/uL Lymphocytes # (Manual) 0.82 L (1.0-4.8) k/uL Metamyelocytes # (Man) 0.41 H (0) k/uL Myelocytes # (Manual) 0.20 H (0) k/uL ABG pH (7.35-7.45) ABG pCO2 (35-45) mmHg ABG HCO3 (21-25) mmol/L ABG Total CO2 (19-24) mmol/L ABG O2 Saturation (94-97) % Potassium (3.5-5.1) mmol/L Chloride 113 H (98-107) mmol/L BUN 44 H (7-17) mg/dL Glucose 196 H (74-99) mg/dL POC Glucose (mg/dL) 190 H (75-99) mg/dL Calcium 7.9 L (8.4-10.2) mg/dL AST 58 H (14-36) U/L ALT (9-52) U/L Alkaline Phosphatase 219 H (38-126) U/L Total Protein 4.4 L (6.3-8.2) g/dL Albumin 1.9 L (3.5-5.0) g/dL 08/13/18 08/13/18 08/13/18 Range/Units 10:36 12:00 12:38 WBC (3.8-10.6) k/uL RBC (3.80-5.40) m/uL Hgb (11.4-16.0) gm/dL Hct (34.0-46.0) % RDW (11.5-15.5) % Plt Count (150-450) k/uL Neutrophils # (Manual) (1.3-7.7) k/uL Lymphocytes # (Manual) (1.0-4.8) k/uL Metamyelocytes # (Man) (0) k/uL Myelocytes # (Manual) (0) k/uL ABG pH 7.31 L (7.35-7.45) ABG pCO2 56 H (35-45) mmHg ABG HCO3 28 H (21-25) mmol/L ABG Total CO2 30 H (19-24) mmol/L ABG O2 Saturation 97.6 H (94-97) % Potassium (3.5-5.1) mmol/L Chloride (98-107) mmol/L BUN (7-17) mg/dL Glucose (74-99) mg/dL POC Glucose (mg/dL) 182 H 186 H (75-99) mg/dL Calcium (8.4-10.2) mg/dL AST (14-36) U/L ALT (9-52) U/L Alkaline Phosphatase (38-126) U/L Total Protein (6.3-8.2) g/dL Albumin (3.5-5.0) g/dL 08/13/18 Range/Units 14:01 WBC (3.8-10.6) k/uL RBC (3.80-5.40) m/uL Hgb (11.4-16.0) gm/dL Hct (34.0-46.0) % RDW (11.5-15.5) % Plt Count (150-450) k/uL Neutrophils # (Manual) (1.3-7.7) k/uL Lymphocytes # (Manual) (1.0-4.8) k/uL Metamyelocytes # (Man) (0) k/uL Myelocytes # (Manual) (0) k/uL ABG pH (7.35-7.45) ABG pCO2 (35-45) mmHg ABG HCO3 (21-25) mmol/L ABG Total CO2 (19-24) mmol/L ABG O2 Saturation (94-97) % Potassium (3.5-5.1) mmol/L Chloride (98-107) mmol/L BUN (7-17) mg/dL Glucose (74-99) mg/dL POC Glucose (mg/dL) 188 H (75-99) mg/dL Calcium (8.4-10.2) mg/dL AST (14-36) U/L ALT (9-52) U/L Alkaline Phosphatase (38-126) U/L Total Protein (6.3-8.2) g/dL Albumin (3.5-5.0) g/dL Microbiology - Last 24 Hours (Table) 08/09/18 16:50 Blood Culture Gram Stain - Preliminary Blood Blood Culture - Preliminary Coagulase Negative Staph 08/10/18 18:30 Blood Culture - Preliminary Blood No Growth after 48 hours 08/09/18 16:50 Blood Culture - Preliminary Blood No Growth after 72 hours Assessment and Plan Plan: Assessment 1 complicated diverticular abscess with bowel perforation. The patient is also expiratory laparotomy, sigmoid colectomy and ostomy appendectomy. The patient is postop day #14. The patient had another expiratory laparotomy where an abscess was found next to the small bowel resection area and it was drained. The patient underwent further small bowel resection and diverting ileostomy. One debridement was also done. Patient is postop day #5 following the reexploration laparotomy. On 08/12/2018, the patient remains intubated on a mechanical ventilator number dealing with complications of ARDS and abdominal sepsis. Hemodynamically stable. Nevertheless, the patient is still vent dependent and the patient has developed extensive subcutaneous emphysema. The patient remains nothing by mouth on TPN for now. The wound is still open and packed and the patient has a viable ileostomy site. The patient is afebrile for now. On 08/13/2018, the patient has done some limited progress. First and foremost, the patient is hemodynamically stable and she remains off pressors. Also, the patient is showing some improvement in the oxygenation along with underlying ARDS. Also, the patient was started enteral feeding and she seems to be tolerating the feeds with a functional ileostomy site. As such, this is encouraging and the next several the proceeding with a tracheostomy tube insertion for prolonged mechanical ventilation. 2 sepsis secondary to abdominal infection related to a complicated diverticular abscess. The patient has gram-negative/E. coli and Beta Strep and Anaerobes , and based on the most recent findings, the antibiotics have been adjusted to include a combination of Zosyn and vancomycin and Eraxis. The patient was taken off the pressors and the patient is maintaining his own blood pressure for now. Patient is also being diuresed IV Lasix 40 mg once a day and the patient's overall fluid balance is improving compared to yesterday. 3 Shock Secondary to intra-abdominal sepsis and the patient currently is off pressors.. The echocardiogram showed a hyperdynamic LV function of 70%. The patient is off pressors. 4 extensive volume overload in addition to hypoproteinemia and hypoproteinemia contributing to the patient's third spacing an extensive upper and lower extremity edema, and there is been improvement in the patient's protein level in the serum albumin is up to 1.9 and the serum protein is up to 4.5. 5 TPN for Nutritional Support 6 Open Wound with Necrosis of the Wound Surface, status post debridement 7 acute hypoxic respiratory failure secondary to ARDS , still on low tidal volume ventilation. The patient is on high PEEP of 12 with an FiO2 of 85%. Note that the above-mentioned changes were done and the patient's occupation is gradually improving. 8 extensive subcutaneous emphysema involving the face chest and upper extremities. There may be a slight now mediastinum. Nevertheless this hasn't affected the patient's oxidation or ventilation. No signs of any worsening in her hemodynamics. We'll continue to follow. We'll attempt to lower down the PEEP if possible. Keep the low tidal volume ventilation for now. Allow permissive hypercapnia. For now, the patient's appearance emphysema stable. A horizontal incision in the skin and fascia was done to the sleep is subcutaneous air. The amount of air in her chest and the neck area is improved compared to yesterday 9 severe hypoproteinemia and hypoproteinemia, improved on TPN. The patient is also starting on enteral feeding. 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 Vascular surgery on the case and there is no significant progression and the thumb necrosis on today 's evaluation. Examination of the left thumb remains unchanged on today's evaluation. The tip of the left thumb is necrotic and ultimately this may need a surgical resection. Plan Continue current supportive care. Continue TPN. Support. The patient patient was started on enteral feeding yesterday. The patient is receiving vital 1.2. We'll gradually advance diet as tolerated. The ultimate plan is to proceed with a tracheostomy tube insertion for tomorrow. In terms of her ARDS, there is improvement in the patient's oxygenation. The patient will be brought down to an FiO2 of 60% if possible. If so I intend to bring his PEEP as low as 10 today getting this patient prepared for a tracheostomy tube insertion tomorrow. Subcutaneous emphysema is also improving. Continue same antibiotic coverage. I had a lengthy discussion with the patient's family. I met again her and the sister with significant amount of questions which I addressed. Condition remains highly critical. Prognosis still poor. Nevertheless the patient is doing some progress especially over the past few days. We'll continue to follow. This is a critically care evaluation was done and 45 minutes. Time with Patient: Greater than 30
[2018-08-13] MEDS: fentaNYL (PF) 1,000 MCG in SODIUM CHLORIDE 0.9% 80 ML IV SCH (15:07)
[2018-08-13] MEDS ORDERED: MVI, ADULT NO.4 WITH VIT K 10 ML, TRACE (CONC-1ML/DOSE) 1 ML, PARENTERAL ELECTROLYTES 2... IV SCH ×5 (16:00)
[2018-08-13 16:40] LABS: Glucose,Whole Blood 196 mg/dL (75-99)
[2018-08-13] MEDS: INSULIN REGULAR 100 UNIT in SODIUM CHLORIDE 0.9% 100 ML IV SCH (16:51)
[2018-08-13 18:42] LABS: Glucose,Whole Blood 189 mg/dL (75-99)
[2018-08-13 20:26] LABS: Glucose,Whole Blood 198 mg/dL (75-99)
[2018-08-13 22:12] LABS: Glucose,Whole Blood 179 mg/dL (75-99)
[2018-08-13 23:02] LABS: Glucose,Whole Blood 194 mg/dL (75-99)
--- NOTE | 2018-08-13 23:18 | PN ---
PROGRESS NOTE DATE OF SERVICE: 08/13/2018. REASON FOR FOLLOWUP: Abdominal sepsis, positive blood culture with Staph. INTERVAL HISTORY: The patient is currently afebrile. The patient is hemodynamically stable, not requiring any pressor support. The patient's FiO2 is down to 65% as well. Scheduled for a tracheostomy tomorrow. on the vent. No other changes reported by the nursing staff. PHYSICAL EXAMINATION: Blood pressure 134/55 with a pulse of 90, temperature 97.6. She is 93% on 55% FiO2. GENERAL DESCRIPTION: A middle-aged female lying in bed in no distress. HEENT: No pallor. The patient is orally intubated. LUNGS: Unlabored breathing, decreased breath sounds at the bases. HEART: S1, S2 regular rhythm. ABDOMEN: Soft. The incision is currently covered, with no obvious drainage. EXTREMITIES: 2+ edema of feet. LABS: Hemoglobin is 10.7, white count 20.4, BUN of 44, creatinine 0.68. Culture has been negative so far. One blood culture from art line was coagulase negative Staph. DIAGNOSTIC IMPRESSION AND PLAN: Patient with sepsis, source is abdominal in this patient who did have an extensive sigmoid diverticulitis with perforation involving status post extensive surgery x2. Subsequently did have a leak and has to go back for surgery and status post ileostomy. The patient was noted to have subcutaneous emphysema, relieved now. The patient seemed to have shown clinical improvement as well as she is hemodynamically stable not requiring any pressor support. No fever. White count slightly coming down. Possible tracheostomy tomorrow and debridement of the wound. Wound care was discussed in detail with the family present at bedside, their questions were answered. MMODL / IJN: [id number] /
[2018-08-14 00:04] LABS: Glucose,Whole Blood 172 mg/dL (75-99)
[2018-08-14] MEDS: PIPERACILLIN-TAZOBACTAM 3.375 GM in SODIUM CHLORIDE 0.9% 100 ML IVPB SCH ×4 (00:06→23:50)
[2018-08-14] MEDS: METOCLOPRAMIDE 5 MG/ML 2 ML VIAL IVP SCH ×5 (00:06→23:50)
[2018-08-14] MEDS: HYDROCORTISONE SUCCINATE 100 MG/2 ML VIAL IV SCH ×4 (00:06→23:50)
[2018-08-14] MEDS: SODIUM CHLORIDE 0.45% 1,000 ML IV SCH (00:09)
[2018-08-14 01:26] LABS: Glucose,Whole Blood 178 mg/dL (75-99)
[2018-08-14 02:04] LABS: Glucose,Whole Blood 166 mg/dL (75-99)
[2018-08-14] MEDS: PROPOFOL 1,000 MG in EMPTY BAG 1 BAG IV SCH ×5 (02:08→21:37)
[2018-08-14 03:06] LABS: Glucose,Whole Blood 166 mg/dL (75-99)
[2018-08-14 03:47] LABS: Glucose,Whole Blood 156 mg/dL (75-99)
[2018-08-14 05:06] LABS: Anisocytosis Slight; Basophils # (A) 0.1 k/uL (0-0.2); Basophils % (A) 1 %; Eosinophils # (A) 0.1 k/uL (0-0.7); Eosinophils % (A) 0 %; HCT 33.2 % (34.0-46.0); HGB 10.3 gm/dL (11.4-16.0); Hypochromasia Marked; Lymphocytes # (A) 0.9 k/uL (1.0-4.8); Lymphocytes % (A) 6 %; MCH 29.5 pg (25.0-35.0); MCHC 31.1 g/dL (31.0-37.0); MCV 94.7 fL (80.0-100.0); Macrocytosis Slight; Mean Platelet Volume 9.9; Monocytes # (A) 0.3 k/uL (0-1.0); Monocytes % (A) 2 %; Neutrophils # (A) 14.5 k/uL (1.3-7.7); Neutrophils % (A) 90 %; Poikilocytosis Slight; RBC 3.51 m/uL (3.80-5.40); RDW 18.6 % (11.5-15.5); WBC 16.1 k/uL (3.8-10.6)
[2018-08-14 05:07] LABS: Platelet Count 81 k/uL (150-450)
[2018-08-14 05:08] LABS: Glucose,Whole Blood 157 mg/dL (75-99)
[2018-08-14 05:12] LABS: Blood Urea Nitrogen 45 mg/dL (7-17); Calcium 7.9 mg/dL (8.4-10.2); Chloride 109 mmol/L (98-107); Glucose 415 mg/dL (74-99); Sodium 139 mmol/L (137-145); Total Bilirubin 0.9 mg/dL (0.2-1.3)
[2018-08-14 05:28] LABS: Anion Gap 3 mmol/L; Carbon Dioxide 27 mmol/L (22-30)
[2018-08-14 05:43] LABS: ALT 41 U/L (9-52); AST 61 U/L (14-36); Albumin 1.8 g/dL (3.5-5.0); Alkaline Phosphatase 197 U/L (38-126); Magnesium 2.2 mg/dL (1.6-2.3); Phosphorus 2.9 mg/dL (2.5-4.5); Potassium 4.6 mmol/L (3.5-5.1); Total Protein 4.5 g/dL (6.3-8.2)
[2018-08-14 06:08] LABS: Glucose,Whole Blood 147 mg/dL (75-99)
[2018-08-14 06:23] LABS: Anisocytosis Slight; Basophils # (A) 0.1 k/uL (0-0.2); Basophils % (A) 1 %; Eosinophils # (A) 0.1 k/uL (0-0.7); Eosinophils % (A) 0 %; HCT 33.4 % (34.0-46.0); HGB 10.5 gm/dL (11.4-16.0); Hypochromasia Moderate; Lymphocytes # (A) 0.8 k/uL (1.0-4.8); Lymphocytes % (A) 5 %; MCH 29.3 pg (25.0-35.0); MCHC 31.4 g/dL (31.0-37.0); MCV 93.5 fL (80.0-100.0); Macrocytosis Slight; Mean Platelet Volume 9.6; Monocytes # (A) 0.3 k/uL (0-1.0); Monocytes % (A) 2 %; Neutrophils # (A) 14.5 k/uL (1.3-7.7); Neutrophils % (A) 92 %; Poikilocytosis Slight; RBC 3.57 m/uL (3.80-5.40); RDW 18.9 % (11.5-15.5); WBC 15.8 k/uL (3.8-10.6)
[2018-08-14 06:24] LABS: Platelet Count 78 k/uL (150-450)
[2018-08-14] MEDS: VANCOMYCIN 1,500 MG in SODIUM CHLORIDE 0.9% 250 ML IVPB SCH (06:32)
[2018-08-14 06:33] LABS: Anion Gap 5 mmol/L; Blood Urea Nitrogen 45 mg/dL (7-17); Carbon Dioxide 29 mmol/L (22-30); Chloride 112 mmol/L (98-107); Glucose 158 mg/dL (74-99); Phosphorus 2.9 mg/dL (2.5-4.5); Potassium 3.4 mmol/L (3.5-5.1); Sodium 146 mmol/L (137-145)
[2018-08-14] MEDS: POTASSIUM CHLORIDE 20 MEQ in WATER FOR INJECTION 1 100ML.BAG IVPB SCH ×2 (06:52→08:36)
[2018-08-14 07:03] LABS: Glucose,Whole Blood 167 mg/dL (75-99)
[2018-08-14] MEDS: IPRATROPIUM-ALBUTEROL 3 ML NEB INHALATION SCH ×4 (07:51→19:30)
--- NOTE | 2018-08-14 08:02 | XR ---
EXAMINATION TYPE: XR chest 1V portable DATE OF EXAM: 08/14/2018 COMPARISON: 08/13/2018 INDICATION: ARDS TECHNIQUE: Single frontal view of the chest is obtained. FINDINGS: The heart size is normal. The pulmonary vasculature is prominent. Diffuse increased lung markings are present bilaterally. Findings appear similar to comparison Extensive subcutaneous emphysema is present. Endotracheal tube tip is above suresh. Nasogastric tube transverses the thorax. Left central venous catheter is tip in the distal superior vena cava region. EKG leads overlie the chest. IMPRESSION: 1. Diffuse increased lung markings which can be compatible with a RDS in the proper clinical setting. 2. Multiple lines and catheters discussed above. 3. Examination appears stable from comparison.
[2018-08-14] MEDS: CHLORHEXIDINE GLUCONATE 15 ML CUP MUCOUS MEM SCH ×2 (08:35→20:35)
[2018-08-14] MEDS: PANTOPRAZOLE 40 MG/10 ML VIAL IVP SCH (08:35)
[2018-08-14] MEDS: ANIDULAFUNGIN 100 MG in SODIUM CHLORIDE 0.9% 100 ML IVPB SCH (08:36)
[2018-08-14] MEDS ORDERED: CISATRACURIUM 2 MG/ML 5 ML VIAL IV ONE (09:07)
[2018-08-14 10:15] LABS: Glucose,Whole Blood 143 mg/dL (75-99)
[2018-08-14] MEDS ORDERED: PHENYLEPHRINE-0.9% NACL SYG 1 MG/10 ML SYRINGE ONE (10:30)
[2018-08-14] MEDS ORDERED: MIDAZOLAM 2 MG/2 ML VIAL ONE (10:30)
[2018-08-14] MEDS ORDERED: ROCURONIUM BROMIDE 10 MG/ML 10 ML VIAL IV ONE (10:30)
[2018-08-14] MEDS ORDERED: fentaNYL (PF) 50 MCG/ML 2 ML AMP ONE (10:30)
[2018-08-14] MEDS ORDERED: LIDOCAINE 1% INJ 10MG/ML (20 ML MDV) SQ ONE ×2 (10:32)
--- NOTE | 2018-08-14 10:54 | P.PN ---
Subjective Progress Note Date: 08/14/18 Principal diagnosis: Patient is a 58-year-old female with no significant past medical history o who presented to the emergency department at the recommendations of her PCP for dehydration, nausea, and vomiting. In the emergency department she underwent an extensive evaluation. Computed tomography scan of the abdomen showed diverticular abscess with partial bowel obstruction she was admitted for further management. Initial laboratory analysis showed a sodium of 132, carbon dioxide 21, and a negative urinalysis. She was started on IV fluids, antibiotics and was admitted. General surgery was consulted. Patient initially wanted conservative management did not want surgery. Interventional radiology was consulted and she underwent abscess ranges placement of percutaneous drain on 07/28/18. She was found to have an elevated PTT and hematology was consulted. They felt that this was likely due to poor nutritional intake and ordered additional vitamin K. Her PT INR normalized with additional vitamin K. She was seen by ID who discontinue meropenem and started her on Zosyn. She had initially been progressing well. Overnight on she developed increasing pain and nausea. She started requiring IV narcotics for treatment of her pain. She then became tachycardic. Morning blood work on 07/30 showed a depressed white blood cell count at 2.5, and carbon dioxide of 12. Stat CT with IV contrast as well as a stat lactic acid and a [address] abdomen and pelvis showed free air. Case discussed with Dr. Jacobson and patient was taken urgently to the operating room for ex-lap due to perforated viscus. During the procedure, the patient was noted to have fecal peritonitis and underwent a sigmoid colectomy with end colostomy. She was transferred to the ICU post-operatively and was started on IV pressors. The patient was extubated on 07/31/18. However, she continued to require Levophed. ID recommended the patient to be switched to Unasyn and Flagyl. A random cortisol level was drawn and was 22, for which patient was started on hydrocortisone for suspected adrenal insufficiency. On 08/02 the patient developed respiratory distress and was re-intubated. She was also noted to have L thumb discoloration with history of art line placement on that wrist. Vascular surgery was consulted and did not recommend urgent surgical intervention. Her pressors were able to taken off momentarily on 08/06 but required to be restarted on 08/07. She had a dusky appearance to the wound edges and was taken back to the OR on 08/09 and underwent small bowel resection with abdominal wound debridement. patiently currently on mechanical ventilator and sedated on propofol also on fentanyl drip for pain and comfort continues to remain normotensive. trickle enteral feeds with TPN discontinued preop subsequently noted to have increased residuals. Continues to be afebrile with white count trending down, anasarca is significantly improved today. Patient having dysfunctional left radial artery line with difficulty finding right renal artery with Doppler, fingertips on the right hand become increasingly cyanotic. Patient with facial due to swelling subcutaneous emphysema and anasarca. Gen. surgery planning to place tracheostomy today and to re-debridement abdominal wound. Patient's potassium level this morning at 3.4 has been replaced recheck pending. Blood sugars mildly elevated continue correctional scale coverage. Objective - Vital Signs Vital signs: Vital Signs Temp 97.7 F 08/14/18 04:00 Pulse 85 08/14/18 08:14 Resp 30 H 08/14/18 07:00 BP 109/69 08/14/18 07:00 Pulse Ox 92 L 08/14/18 07:00 Intake & Output 08/13/18 08/14/18 08/14/18 18:59 06:59 18:59 Intake Total 875.322 1031.419 106.388 Output Total 2405 725 Balance -1599.927 805.419 106.388 Weight 77.7 kg Intake: IV 251 1253 Fentanyl 60 Mvi, Adult No.4 with Vit 540 K 10 ml Trace (Conc-1Ml/ Dose) 1 ml Parenteral Electrolytes 20 ml Potassium Chloride 20 meq In Amino Acid 5%-D15w 1, 000 ml @ 45 mls/hr IV . Q23H8M JESSICA Rx#:[id number] Pressure bag 6 63 Sodium Chloride 0.45% 1, 120 240 000 ml @ 20 mls/hr IV . Q24H JESSICA Rx#:[id number] Vancomycin 1,500 mg In 125 250 Sodium Chloride 0.9% 250 ml @ 125 mls/hr IVPB Q24H JESSICA Rx#:[id number] zosyn 100 Intake, IV Titration 324.073 217.419 106.388 Amount Insulin Regular 100 unit 44.210 50.685 13.13 In Sodium Chloride 0.9% 100 ml @ Per Protocol IV .Q0M JESSICA Rx#:[id number] Propofol 1,000 mg In 180.384 166.734 93.258 Empty Bag 1 bag @ Titrate IV .Q0M JESSICA Rx#: [id number] fentaNYL (PF) 1,000 mcg 99.479 In Sodium Chloride 0.9% 80 ml @ 0.62 MCG/KG/HR 5. 02 mls/hr IV .[id number] JESSICA Rx#:[id number] Tube Feeding 140 60 Other 90 Output: Drainage 120 Right Abdomen 120 Urine 2105 605 Stool 300 Other: Voiding Method Indwelling Catheter Indwelling Catheter # Voids 2 ABP, PAP, CO, CI - Last Documented Arterial Blood Pressure 113/110 - Exam Constitutional: Intubated currently on mechanical ventilator, OG/OT tubes in place Eyes: Anicteric sclerae, moist conjunctiva, no lid-lag, PERRLA ENMT: NC/AT,Oropharynx clear, no erythema, exudates Neck:Supple, FROM, no masses, or JVD, No carotid bruits; No thyromegaly Lungs: Diminished bilaterally with some bibasilar crackles, no wheezes Cardiovascular: Heart regular in rate and rhythm, No murmurs, gallops, or rubs no peripheral edema Abdominal: Soft Nontender, abdominal wound VAC in place with serous drainage evidence of necrosis, functioning colostomy and ileostomy with dark fluid collection in both, hypoactive bowel sounds Skin: Multiple tears with seepage of serous fluid due to anasarca Extremities: Left thumb violaceously discolored dark, unable to palpate Radial pulse which is heard with Doppler Psychiatric: Alert and oriented to person, place and time, Appropriate affect Intact judgement - Labs CBC & Chem 7: 08/14/18 05:51 08/14/18 05:51 Labs: Abnormal Lab Results - Last 24 Hours (Table) 08/13/18 08/13/18 08/13/18 Range/Units 06:00 12:00 12:38 WBC (3.8-10.6) k/uL RBC (3.80-5.40) m/uL Hgb (11.4-16.0) gm/dL Hct (34.0-46.0) % RDW (11.5-15.5) % Plt Count (150-450) k/uL Neutrophils # (1.3-7.7) k/uL Neutrophils # (Manual) 18.90 H (1.3-7.7) k/uL Lymphocytes # (1.0-4.8) k/uL Lymphocytes # (Manual) 0.82 L (1.0-4.8) k/uL Metamyelocytes # (Man) 0.41 H (0) k/uL Myelocytes # (Manual) 0.20 H (0) k/uL ABG pH 7.31 L (7.35-7.45) ABG pCO2 56 H (35-45) mmHg ABG HCO3 28 H (21-25) mmol/L ABG Total CO2 30 H (19-24) mmol/L ABG O2 Saturation 97.6 H (94-97) % Sodium (137-145) mmol/L Potassium (3.5-5.1) mmol/L Chloride (98-107) mmol/L BUN (7-17) mg/dL Glucose (74-99) mg/dL POC Glucose (mg/dL) 186 H (75-99) mg/dL Calcium (8.4-10.2) mg/dL AST (14-36) U/L Alkaline Phosphatase (38-126) U/L Total Protein (6.3-8.2) g/dL Albumin (3.5-5.0) g/dL 08/13/18 08/13/18 08/13/18 Range/Units 14:01 16:25 18:39 WBC (3.8-10.6) k/uL RBC (3.80-5.40) m/uL Hgb (11.4-16.0) gm/dL Hct (34.0-46.0) % RDW (11.5-15.5) % Plt Count (150-450) k/uL Neutrophils # (1.3-7.7) k/uL Neutrophils # (Manual) (1.3-7.7) k/uL Lymphocytes # (1.0-4.8) k/uL Lymphocytes # (Manual) (1.0-4.8) k/uL Metamyelocytes # (Man) (0) k/uL Myelocytes # (Manual) (0) k/uL ABG pH (7.35-7.45) ABG pCO2 (35-45) mmHg ABG HCO3 (21-25) mmol/L ABG Total CO2 (19-24) mmol/L ABG O2 Saturation (94-97) % Sodium (137-145) mmol/L Potassium (3.5-5.1) mmol/L Chloride (98-107) mmol/L BUN (7-17) mg/dL Glucose (74-99) mg/dL POC Glucose (mg/dL) 188 H 196 H 189 H (75-99) mg/dL Calcium (8.4-10.2) mg/dL AST (14-36) U/L Alkaline Phosphatase (38-126) U/L Total Protein (6.3-8.2) g/dL Albumin (3.5-5.0) g/dL 08/13/18 08/13/18 08/13/18 Range/Units 20:23 22:09 22:58 WBC (3.8-10.6) k/uL RBC (3.80-5.40) m/uL Hgb (11.4-16.0) gm/dL Hct (34.0-46.0) % RDW (11.5-15.5) % Plt Count (150-450) k/uL Neutrophils # (1.3-7.7) k/uL Neutrophils # (Manual) (1.3-7.7) k/uL Lymphocytes # (1.0-4.8) k/uL Lymphocytes # (Manual) (1.0-4.8) k/uL Metamyelocytes # (Man) (0) k/uL Myelocytes # (Manual) (0) k/uL ABG pH (7.35-7.45) ABG pCO2 (35-45) mmHg ABG HCO3 (21-25) mmol/L ABG Total CO2 (19-24) mmol/L ABG O2 Saturation (94-97) % Sodium (137-145) mmol/L Potassium (3.5-5.1) mmol/L Chloride (98-107) mmol/L BUN (7-17) mg/dL Glucose (74-99) mg/dL POC Glucose (mg/dL) 198 H 179 H 194 H (75-99) mg/dL Calcium (8.4-10.2) mg/dL AST (14-36) U/L Alkaline Phosphatase (38-126) U/L Total Protein (6.3-8.2) g/dL Albumin (3.5-5.0) g/dL 08/14/18 08/14/18 08/14/18 Range/Units 00:01 01:09 02:01 WBC (3.8-10.6) k/uL RBC (3.80-5.40) m/uL Hgb (11.4-16.0) gm/dL Hct (34.0-46.0) % RDW (11.5-15.5) % Plt Count (150-450) k/uL Neutrophils # (1.3-7.7) k/uL Neutrophils # (Manual) (1.3-7.7) k/uL Lymphocytes # (1.0-4.8) k/uL Lymphocytes # (Manual) (1.0-4.8) k/uL Metamyelocytes # (Man) (0) k/uL Myelocytes # (Manual) (0) k/uL ABG pH (7.35-7.45) ABG pCO2 (35-45) mmHg ABG HCO3 (21-25) mmol/L ABG Total CO2 (19-24) mmol/L ABG O2 Saturation (94-97) % Sodium (137-145) mmol/L Potassium (3.5-5.1) mmol/L Chloride (98-107) mmol/L BUN (7-17) mg/dL Glucose (74-99) mg/dL POC Glucose (mg/dL) 172 H 178 H 166 H (75-99) mg/dL Calcium (8.4-10.2) mg/dL AST (14-36) U/L Alkaline Phosphatase (38-126) U/L Total Protein (6.3-8.2) g/dL Albumin (3.5-5.0) g/dL 08/14/18 08/14/18 08/14/18 Range/Units 03:03 03:44 04:21 WBC 16.1 H (3.8-10.6) k/uL RBC 3.51 L (3.80-5.40) m/uL Hgb 10.3 L (11.4-16.0) gm/dL Hct 33.2 L (34.0-46.0) % RDW 18.6 H (11.5-15.5) % Plt Count 81 L (150-450) k/uL Neutrophils # 14.5 H (1.3-7.7) k/uL Neutrophils # (Manual) (1.3-7.7) k/uL Lymphocytes # 0.9 L (1.0-4.8) k/uL Lymphocytes # (Manual) (1.0-4.8) k/uL Metamyelocytes # (Man) (0) k/uL Myelocytes # (Manual) (0) k/uL ABG pH (7.35-7.45) ABG pCO2 (35-45) mmHg ABG HCO3 (21-25) mmol/L ABG Total CO2 (19-24) mmol/L ABG O2 Saturation (94-97) % Sodium (137-145) mmol/L Potassium (3.5-5.1) mmol/L Chloride (98-107) mmol/L BUN (7-17) mg/dL Glucose (74-99) mg/dL POC Glucose (mg/dL) 166 H 156 H (75-99) mg/dL Calcium (8.4-10.2) mg/dL AST (14-36) U/L Alkaline Phosphatase (38-126) U/L Total Protein (6.3-8.2) g/dL Albumin (3.5-5.0) g/dL 08/14/18 08/14/18 08/14/18 Range/Units 04:21 05:05 05:51 WBC (3.8-10.6) k/uL RBC (3.80-5.40) m/uL Hgb (11.4-16.0) gm/dL Hct (34.0-46.0) % RDW (11.5-15.5) % Plt Count (150-450) k/uL Neutrophils # (1.3-7.7) k/uL Neutrophils # (Manual) (1.3-7.7) k/uL Lymphocytes # (1.0-4.8) k/uL Lymphocytes # (Manual) (1.0-4.8) k/uL Metamyelocytes # (Man) (0) k/uL Myelocytes # (Manual) (0) k/uL ABG pH (7.35-7.45) ABG pCO2 (35-45) mmHg ABG HCO3 (21-25) mmol/L ABG Total CO2 (19-24) mmol/L ABG O2 Saturation (94-97) % Sodium 146 H (137-145) mmol/L Potassium 3.4 L (3.5-5.1) mmol/L Chloride 109 H 112 H (98-107) mmol/L BUN 45 H 45 H (7-17) mg/dL Glucose 415 H 158 H (74-99) mg/dL POC Glucose (mg/dL) 157 H (75-99) mg/dL Calcium 7.9 L 8.0 L (8.4-10.2) mg/dL AST 61 H (14-36) U/L Alkaline Phosphatase 197 H (38-126) U/L Total Protein 4.5 L (6.3-8.2) g/dL Albumin 1.8 L (3.5-5.0) g/dL 08/14/18 08/14/18 08/14/18 Range/Units 05:51 06:05 07:00 WBC 15.8 H (3.8-10.6) k/uL RBC 3.57 L (3.80-5.40) m/uL Hgb 10.5 L (11.4-16.0) gm/dL Hct 33.4 L (34.0-46.0) % RDW 18.9 H (11.5-15.5) % Plt Count 78 L (150-450) k/uL Neutrophils # 14.5 H (1.3-7.7) k/uL Neutrophils # (Manual) (1.3-7.7) k/uL Lymphocytes # 0.8 L (1.0-4.8) k/uL Lymphocytes # (Manual) (1.0-4.8) k/uL Metamyelocytes # (Man) (0) k/uL Myelocytes # (Manual) (0) k/uL ABG pH (7.35-7.45) ABG pCO2 (35-45) mmHg ABG HCO3 (21-25) mmol/L ABG Total CO2 (19-24) mmol/L ABG O2 Saturation (94-97) % Sodium (137-145) mmol/L Potassium (3.5-5.1) mmol/L Chloride (98-107) mmol/L BUN (7-17) mg/dL Glucose (74-99) mg/dL POC Glucose (mg/dL) 147 H 167 H (75-99) mg/dL Calcium (8.4-10.2) mg/dL AST (14-36) U/L Alkaline Phosphatase (38-126) U/L Total Protein (6.3-8.2) g/dL Albumin (3.5-5.0) g/dL 08/14/18 Range/Units 10:11 WBC (3.8-10.6) k/uL RBC (3.80-5.40) m/uL Hgb (11.4-16.0) gm/dL Hct (34.0-46.0) % RDW (11.5-15.5) % Plt Count (150-450) k/uL Neutrophils # (1.3-7.7) k/uL Neutrophils # (Manual) (1.3-7.7) k/uL Lymphocytes # (1.0-4.8) k/uL Lymphocytes # (Manual) (1.0-4.8) k/uL Metamyelocytes # (Man) (0) k/uL Myelocytes # (Manual) (0) k/uL ABG pH (7.35-7.45) ABG pCO2 (35-45) mmHg ABG HCO3 (21-25) mmol/L ABG Total CO2 (19-24) mmol/L ABG O2 Saturation (94-97) % Sodium (137-145) mmol/L Potassium (3.5-5.1) mmol/L Chloride (98-107) mmol/L BUN (7-17) mg/dL Glucose (74-99) mg/dL POC Glucose (mg/dL) 143 H (75-99) mg/dL Calcium (8.4-10.2) mg/dL AST (14-36) U/L Alkaline Phosphatase (38-126) U/L Total Protein (6.3-8.2) g/dL Albumin (3.5-5.0) g/dL Microbiology - Last 24 Hours (Table) 08/10/18 18:30 Blood Culture - Preliminary Blood No Growth after 72 hours 08/09/18 16:50 Blood Culture - Preliminary Blood No Growth after 96 hours 08/09/18 16:50 Blood Culture Gram Stain - Preliminary Blood Blood Culture - Preliminary Coagulase Negative Staph Assessment and Plan Assessment: Septic shock * Continue with stress dose of Solu-Cortef, levophed weaned off, loss access to her right radial artery not functioning we'll plan to place arterial line While in surgery today * Appears intravascularly euvolemic with significant improvement off the third spacing after receiving albumin followed by Lasix * Continue with antibiotic regimen of vancomycin and Zosyn and Eraxis * Echocardiogram showed hyperdynamic LV function with an EF of greater than 70 Diverticulitis with abscess and bowel perforation with septic shock s/p sigmoid colectomy, small bowel resection X 2 and appendectomy and debridement of wound necrosis - additional intraabdominal abscess with current open abdominal wound with noted necrosis at the borders of the wound - Surgery recs -Appreciate ID recommendations Acute hypoxemic respiratory failure due ARDS with possible DAD secondary to septic shock - vent management per ICU team, patient with improved oxygenation on today's ABG currently on FiO2 of 75% - CXR reviewed by pulmonary no evidence of pneumomediastinum does have subcutaneous emphysema likely secondary to elevated PEEP's needed for her ARDS * Subcutaneous emphysema appears somewhat improved today - Consider trach in the next few days if no improvement and patient stable Anasarca * Diffuse third spacing much improved appears euvolemic, patient with excellent response and diuresis with pretreated abdomen followed by Lasix * We'll continue with Lasix twice a day * Continues to be hypoalbuminemic ARDS * secondary to septic shock from intra-abdominal infection/abscess/peritonitis -Management per pulmonary - treatment of infections - PEEP at 12, low tidal volume - critical care recs Anemia, dilutational due to prolonged ICU stay - stable - follow CBC - transfuse for HgB <6 Transaminitis - likely due to TPN and hypoperfusion from shock liver - follow liver enzymes Relative adrenal insufficiency - stress dose steroids, wean per pulm/cc recs Hyperglycemia due to steroids and TPN - prediabetes - A1C 6.1, diet modification on discharge - follow BS and continue insulin gtt Post-op ileus - on TPN - NGT to suction - general surgery recs Severe Protein calorie malnutrition - on TPN Left thumb ischemia secondary to radial artery occlusion - vascular surgery recs appreciated, conservative management at this time. - heparin gtt held per surgery Thromboctypenia, reactive to sepsis, improving - follow CBC - HIT AB negative - Oncology recs appreciated AST elevation - monitor on TPN and ABX Hyponatremia, hypokalemia, hypophosphatemia, and hypomagnesemia resolved Coagulopathy, resolved Anion Gap metabolic acidosis, resolved lactic acidosis, improved DVT prophylaxis: Heparin held by general surgery Anticipated discharge: undetermined Place:[facility] A total of 45 minutes, complex care of this patient. (1) Sepsis Current Visit: Yes Status: Acute Code(s): A41.9 - SEPSIS, UNSPECIFIED ORGANISM SNOMED Code(s): 07019957 (2) Colonic diverticular abscess Current Visit: Yes Status: Acute Code(s): K57.20 - DVTRCLI OF LG INT W PERFORATION AND ABSCESS W/O BLEEDING SNOMED Code(s): 592090957 (3) Partial bowel obstruction Current Visit: Yes Status: Acute Code(s): K56.600 - PARTIAL INTESTINAL OBSTRUCTION, UNSPECIFIED TO CAUSE SNOMED Code(s): 74248975 (4) Abdominal pain Current Visit: Yes Status: Acute Code(s): R10.9 - UNSPECIFIED ABDOMINAL PAIN SNOMED Code(s): 86485182 (5) Coagulopathy Current Visit: Yes Status: Resolved Code(s): D68.9 - COAGULATION DEFECT, UNSPECIFIED SNOMED Code(s): 63087130 (6) Constipation Current Visit: Yes Status: Acute Code(s): K59.00 - CONSTIPATION, UNSPECIFIED SNOMED Code(s): 50688625
[2018-08-14] MEDS ORDERED: LACTATED RINGERS 1,000 ML IV ONE (11:12)
--- NOTE | 2018-08-14 11:51 | P.OP ---
Date of Procedure: 08/14/18 Preoperative Diagnosis: Respiratory failure Chronic abdominal wound Postoperative Diagnosis: Respiratory failure Chronic abdominal wall wound Procedure(s) Performed: Tracheostomy Debridement of abdominal wall wound Description of Procedure: Patient's placed in the operative table in the supine position. She received general anesthesia. Her neck and abdomen were prepped and draped usual sterile fashion. A standard Netta incision was made with a 15 blade and then using cautery the subcu tissues and platysma was divided. The strap muscles were divided midline. The pretracheal space was seen. And then electric cautery the adipose tissue in the peritoneal space and divided. The trachea was then exposed. The endotracheal tube was inserted into the right mainstem bronchus and then the tracheotomy was performed. The and a trickle tube was then withdrawn under direct vision. And then the #8 Portex tube was placed into the trachea. The patient was cut to the ventilator and end-tidal CO2 was confirmed. The skin incision site was closed with 3-0 nylon suture. The umbilical tape tracheostomy tie was secured. The abdominal wound was sprayed with Betadine. Using curved Kaminski scissors the ischemic fat was debrided. The debridement measured approximately 10 x 5 x 1 cm. Hemostasis was achieved with cautery. The wound was packed with wet-to- dry dressing. Patient was sent back to the ICU in critical condition.
[2018-08-14 12:48] LABS: Glucose,Whole Blood 107 mg/dL (75-99)
[2018-08-14] MEDS: CISATRACURIUM 200 MG in SODIUM CHLORIDE 0.9% 180 ML IV SCH (13:00)
--- NOTE | 2018-08-14 13:00 | P.PN ---
Subjective Progress Note Date: 08/14/18 Principal diagnosis: Acute hypoxic respiratory failure secondary to ARDS, and abdominal sepsis. Patient was reevaluated today on 08/14/2018, remains on mechanical ventilation, she remains on relatively high PEEP of 12, and high FiO2 of 65% with marginal O2 saturation. O2 saturation was 93% at best. ABG could not be done this morning, the right radial arterial line was nonfunctional and it was removed. And she had issues related to her left radial arterial line which was discontinued because of ischemic changes of the left thumb. Patient remains on assist control rate of 30 tidal volume of 350 PEEP of 12 and FiO2 of 65%. Remains on fentanyl roughly about 50 mcg/m, insulin drip at 4.5 units per hour, and propofol drip at 40 mcg/kg/m. Considering the patient is still requiring high FiO2 and high PEEP, and she seems to be a bit tachypneic, I went ahead and recommended that the patient gets to be placed on Nimbex. She is scheduled to undergo tracheostomy today. Chest x-ray showed significant bilateral interstitial changes consistent with ARDS, significant subcutaneous emphysema is noted, no evidence of pneumothorax, and no evidence of pneumomediastinum. Fortunately, the patient is not requiring any pressors at this point. Urine output seems to be adequate, the pressure is adequate. She does have a net positive fluid balance. There is however significant amount of seepage noted from the skin surfaces specially skin of lower extremities. Colostomy is nonfunctional ileostomy is functioning. Patient remains on TPN. Necrotic left stump remains about the same. Objective - Vital Signs Vital signs: Vital Signs Temp 97.7 F 08/14/18 04:00 Pulse 92 08/14/18 12:23 Resp 34 H 08/14/18 10:00 BP 148/95 08/14/18 10:00 Pulse Ox 93 L 08/14/18 10:00 Intake & Output 08/13/18 08/14/18 08/14/18 18:59 06:59 18:59 Intake Total 562.738 8027.419 1125.388 Output Total 2405 725 1040 Balance -1599.927 805.419 85.388 Weight 77.7 kg 77.7 kg Intake: IV 251 1253 1019 Anidulafungin 100 mg In 100 Sodium Chloride 0.9% 100 ml @ 84 mls/hr IVPB DAILY [facility] Rx#:[id number] Fentanyl 60 15 Mvi, Adult No.4 with Vit 540 135 K 10 ml Trace (Conc-1Ml/ Dose) 1 ml Parenteral Electrolytes 20 ml Potassium Chloride 20 meq In Amino Acid 5%-D15w 1, 000 ml @ 45 mls/hr IV . Q23H8M [facility] Rx#:[id number] Pressure bag 6 63 9 Sodium Chloride 0.45% 1, 120 240 60 000 ml @ 20 mls/hr IV . Q24H [facility] Rx#:[id number] Vancomycin 1,500 mg In 125 250 Sodium Chloride 0.9% 250 ml @ 125 mls/hr IVPB Q24H [facility] Rx#:[id number] potassium chloride 100 zosyn 100 100 Intake, IV Titration 324.073 217.419 106.388 Amount Insulin Regular 100 unit 44.210 50.685 13.13 In Sodium Chloride 0.9% 100 ml @ Per Protocol IV .Q0M [facility] Rx#:[id number] Propofol 1,000 mg In 180.384 166.734 93.258 Empty Bag 1 bag @ Titrate IV .Q0M [facility] Rx#: [id number] fentaNYL (PF) 1,000 mcg 99.479 In Sodium Chloride 0.9% 80 ml @ 0.62 MCG/KG/HR 5. 02 mls/hr IV .[id number] [facility] Rx#:[id number] Tube Feeding 140 60 Other 90 Output: Drainage 120 Right Abdomen 120 Urine 2105 605 1015 Stool 300 Estimated Blood Loss 25 Other: Voiding Method Indwelling Catheter Indwelling Catheter # Voids 2 ABP, PAP, CO, CI - Last Documented Arterial Blood Pressure 113/110 - Exam Physical Exam: Revealed a 58-year-old female on mechanical ventilation, sedated , on propofol, fentanyl, and Nimbex. Head: Atraumatic, normocephalic. Facial and neck swelling is noted secondary to subcutaneous emphysema. HEENT:[Neck is supple.] [No neck masses.] [No thyromegaly.] [No JVD.] PERRLA, EOMI, no icterus. Dry mucous membranes were noted. Chest: Crackles and rhonchi were noted bilaterally, right sided chest incision seems to be losing a bit.] Cardiac Exam: [Normal S1 and S2, no S3 gallop, no murmur.] Abdomen: [Abdominal wound, remains open, colostomy and ileostomy tubes were noted. Dark material noted in both legs. Abdominal wall is swollen and edematous. Bowel sounds are hypoactive. Necrosis of the subcutaneous tissue along the wound borders noted bilaterally. Neurological Exam: Cannot be assessed sedated and paralyzed. Psychiatric: Cannot be assessed. Skin/extremities. Evidence of poor perfusion to the tips of the fingers in both hands however more pronounced in the left thumb area with ischemic changes and necrosis. Tips of the other fingers in the right hand are also noted to show some dark discoloration at the tips mostly. That is being addressed by vascular surgery on the case. There is evidence of significant seeping of serous drainage from lower extremities. Significant edema is noted in both lower extremities. - Labs CBC & Chem 7: 08/14/18 05:51 08/14/18 05:51 Labs: Abnormal Lab Results - Last 24 Hours (Table) 08/13/18 08/13/18 08/13/18 Range/Units 12:38 14:01 16:25 WBC (3.8-10.6) k/uL RBC (3.80-5.40) m/uL Hgb (11.4-16.0) gm/dL Hct (34.0-46.0) % RDW (11.5-15.5) % Plt Count (150-450) k/uL Neutrophils # (1.3-7.7) k/uL Lymphocytes # (1.0-4.8) k/uL ABG pH 7.31 L (7.35-7.45) ABG pCO2 56 H (35-45) mmHg ABG HCO3 28 H (21-25) mmol/L ABG Total CO2 30 H (19-24) mmol/L ABG O2 Saturation 97.6 H (94-97) % Sodium (137-145) mmol/L Potassium (3.5-5.1) mmol/L Chloride (98-107) mmol/L BUN (7-17) mg/dL Glucose (74-99) mg/dL POC Glucose (mg/dL) 188 H 196 H (75-99) mg/dL Calcium (8.4-10.2) mg/dL AST (14-36) U/L Alkaline Phosphatase (38-126) U/L Total Protein (6.3-8.2) g/dL Albumin (3.5-5.0) g/dL 08/13/18 08/13/18 08/13/18 Range/Units 18:39 20:23 22:09 WBC (3.8-10.6) k/uL RBC (3.80-5.40) m/uL Hgb (11.4-16.0) gm/dL Hct (34.0-46.0) % RDW (11.5-15.5) % Plt Count (150-450) k/uL Neutrophils # (1.3-7.7) k/uL Lymphocytes # (1.0-4.8) k/uL ABG pH (7.35-7.45) ABG pCO2 (35-45) mmHg ABG HCO3 (21-25) mmol/L ABG Total CO2 (19-24) mmol/L ABG O2 Saturation (94-97) % Sodium (137-145) mmol/L Potassium (3.5-5.1) mmol/L Chloride (98-107) mmol/L BUN (7-17) mg/dL Glucose (74-99) mg/dL POC Glucose (mg/dL) 189 H 198 H 179 H (75-99) mg/dL Calcium (8.4-10.2) mg/dL AST (14-36) U/L Alkaline Phosphatase (38-126) U/L Total Protein (6.3-8.2) g/dL Albumin (3.5-5.0) g/dL 08/13/18 08/14/18 08/14/18 Range/Units 22:58 00:01 01:09 WBC (3.8-10.6) k/uL RBC (3.80-5.40) m/uL Hgb (11.4-16.0) gm/dL Hct (34.0-46.0) % RDW (11.5-15.5) % Plt Count (150-450) k/uL Neutrophils # (1.3-7.7) k/uL Lymphocytes # (1.0-4.8) k/uL ABG pH (7.35-7.45) ABG pCO2 (35-45) mmHg ABG HCO3 (21-25) mmol/L ABG Total CO2 (19-24) mmol/L ABG O2 Saturation (94-97) % Sodium (137-145) mmol/L Potassium (3.5-5.1) mmol/L Chloride (98-107) mmol/L BUN (7-17) mg/dL Glucose (74-99) mg/dL POC Glucose (mg/dL) 194 H 172 H 178 H (75-99) mg/dL Calcium (8.4-10.2) mg/dL AST (14-36) U/L Alkaline Phosphatase (38-126) U/L Total Protein (6.3-8.2) g/dL Albumin (3.5-5.0) g/dL 08/14/18 08/14/18 08/14/18 Range/Units 02:01 03:03 03:44 WBC (3.8-10.6) k/uL RBC (3.80-5.40) m/uL Hgb (11.4-16.0) gm/dL Hct (34.0-46.0) % RDW (11.5-15.5) % Plt Count (150-450) k/uL Neutrophils # (1.3-7.7) k/uL Lymphocytes # (1.0-4.8) k/uL ABG pH (7.35-7.45) ABG pCO2 (35-45) mmHg ABG HCO3 (21-25) mmol/L ABG Total CO2 (19-24) mmol/L ABG O2 Saturation (94-97) % Sodium (137-145) mmol/L Potassium (3.5-5.1) mmol/L Chloride (98-107) mmol/L BUN (7-17) mg/dL Glucose (74-99) mg/dL POC Glucose (mg/dL) 166 H 166 H 156 H (75-99) mg/dL Calcium (8.4-10.2) mg/dL AST (14-36) U/L Alkaline Phosphatase (38-126) U/L Total Protein (6.3-8.2) g/dL Albumin (3.5-5.0) g/dL 08/14/18 08/14/18 08/14/18 Range/Units 04:21 04:21 05:05 WBC 16.1 H (3.8-10.6) k/uL RBC 3.51 L (3.80-5.40) m/uL Hgb 10.3 L (11.4-16.0) gm/dL Hct 33.2 L (34.0-46.0) % RDW 18.6 H (11.5-15.5) % Plt Count 81 L (150-450) k/uL Neutrophils # 14.5 H (1.3-7.7) k/uL Lymphocytes # 0.9 L (1.0-4.8) k/uL ABG pH (7.35-7.45) ABG pCO2 (35-45) mmHg ABG HCO3 (21-25) mmol/L ABG Total CO2 (19-24) mmol/L ABG O2 Saturation (94-97) % Sodium (137-145) mmol/L Potassium (3.5-5.1) mmol/L Chloride 109 H (98-107) mmol/L BUN 45 H (7-17) mg/dL Glucose 415 H (74-99) mg/dL POC Glucose (mg/dL) 157 H (75-99) mg/dL Calcium 7.9 L (8.4-10.2) mg/dL AST 61 H (14-36) U/L Alkaline Phosphatase 197 H (38-126) U/L Total Protein 4.5 L (6.3-8.2) g/dL Albumin 1.8 L (3.5-5.0) g/dL 08/14/18 08/14/18 08/14/18 Range/Units 05:51 05:51 06:05 WBC 15.8 H (3.8-10.6) k/uL RBC 3.57 L (3.80-5.40) m/uL Hgb 10.5 L (11.4-16.0) gm/dL Hct 33.4 L (34.0-46.0) % RDW 18.9 H (11.5-15.5) % Plt Count 78 L (150-450) k/uL Neutrophils # 14.5 H (1.3-7.7) k/uL Lymphocytes # 0.8 L (1.0-4.8) k/uL ABG pH (7.35-7.45) ABG pCO2 (35-45) mmHg ABG HCO3 (21-25) mmol/L ABG Total CO2 (19-24) mmol/L ABG O2 Saturation (94-97) % Sodium 146 H (137-145) mmol/L Potassium 3.4 L (3.5-5.1) mmol/L Chloride 112 H (98-107) mmol/L BUN 45 H (7-17) mg/dL Glucose 158 H (74-99) mg/dL POC Glucose (mg/dL) 147 H (75-99) mg/dL Calcium 8.0 L (8.4-10.2) mg/dL AST (14-36) U/L Alkaline Phosphatase (38-126) U/L Total Protein (6.3-8.2) g/dL Albumin (3.5-5.0) g/dL 08/14/18 08/14/18 Range/Units 07:00 10:11 WBC (3.8-10.6) k/uL RBC (3.80-5.40) m/uL Hgb (11.4-16.0) gm/dL Hct (34.0-46.0) % RDW (11.5-15.5) % Plt Count (150-450) k/uL Neutrophils # (1.3-7.7) k/uL Lymphocytes # (1.0-4.8) k/uL ABG pH (7.35-7.45) ABG pCO2 (35-45) mmHg ABG HCO3 (21-25) mmol/L ABG Total CO2 (19-24) mmol/L ABG O2 Saturation (94-97) % Sodium (137-145) mmol/L Potassium (3.5-5.1) mmol/L Chloride (98-107) mmol/L BUN (7-17) mg/dL Glucose (74-99) mg/dL POC Glucose (mg/dL) 167 H 143 H (75-99) mg/dL Calcium (8.4-10.2) mg/dL AST (14-36) U/L Alkaline Phosphatase (38-126) U/L Total Protein (6.3-8.2) g/dL Albumin (3.5-5.0) g/dL Microbiology - Last 24 Hours (Table) 08/09/18 16:50 Blood Culture Gram Stain - Final Blood Blood Culture - Final Staphylococcus epidermidis 08/10/18 18:30 Blood Culture - Preliminary Blood No Growth after 72 hours 08/09/18 16:50 Blood Culture - Preliminary Blood No Growth after 96 hours Assessment and Plan Assessment: Impression: Acute hypoxic respiratory failure secondary to ARDS secondary to abdominal sepsis. 2 complicated diverticular abscess with bowel perforation, status post exploratory laparotomy and sigmoid colectomy and ostomy appendectomy postoperative day #15. 3 status post repeat exploratory laparotomy and small bowel resection and abscess drainage and diverting ileostomy postoperative day #6 4 acute septic shock secondary to intra-abdominal abscess 5 excessive volume overload and hypoalbuminemia contributing to significant swelling and third spacing with significant bipedal edema. 6 open wound/abdominal wound with necrosis of the wound surfaces status post debridement. 7 extensive subcutaneous emphysema probably from pneumomediastinum and status post horizontal incision made in the skin and fascia to allow drainage of subcutaneous air. Postoperative day #2 8 chronic anemia 9 adrenocortical insufficiency on IV hydrocortisone. 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 May require surgical resection. 11 plans for tracheostomy to be done today. Recommendation: Continue present supportive care measures, continue ventilatory support, nutritional support, presently on TPN. Continue GI and DVT prophylaxis. Continue high PEEP and high FiO2 for now, will likely cut down the FiO2 if possible and hopefully that could be accomplished once the patient is back on Nimbex today. Clearly the patient is nowhere near any weaning trials. Prognosis is extremely poor, and mortality is going to be extremely high. In the meantime we'll continue present treatment plan including antibiotics, bronchodilators, antifungal therapy, hydrocortisone, diuretics, insulin, address electrolytes accordingly, antibiotics and antifungal as per infectious disease on the case. Critical care time is 45 minutes. Time with Patient: Greater than 30
[2018-08-14 14:43] LABS: Glucose,Whole Blood 130 mg/dL (75-99)
[2018-08-14] MEDS: NOREPINEPHRINE 32 MG in SODIUM CHLORIDE 0.9% 218 ML IV SCH (14:57)
[2018-08-14] MEDS: MVI, ADULT NO.4 WITH VIT K 10 ML, TRACE (CONC-1ML/DOSE) 1 ML, POTASSIUM CHLORIDE 40 MEQ... IV SCH ×7 (15:03)
[2018-08-14 15:58] LABS: Glucose,Whole Blood 117 mg/dL (75-99)
[2018-08-14] MEDS: FUROSEMIDE 10 MG/ML 4 ML VIAL IV SCH (16:09)
[2018-08-14] MEDS: NOREPINEPHRINE 32 MG in SODIUM CHLORIDE 0.9% 250 ML IV SCH (16:10)
[2018-08-14 17:07] LABS: Glucose,Whole Blood 171 mg/dL (75-99)
[2018-08-14 17:39] LABS: ABG Base Excess 0.9 mmol/L; ABG HCO3 27 mmol/L (21-25); ABG Oxygen Saturation 94.1 % (94-97); ABG PCO2 52 mmHg (35-45); ABG PH 7.33 (7.35-7.45); ABG PO2 72 mmHg (83-108); ABG TCO2 29 mmol/L (19-24)
--- NOTE | 2018-08-14 18:25 | PCN ---
PROCEDURE NOTE OPERATIVE REPORT: Placement of right brachial arterial line. PREOPERATIVE DIAGNOSIS: Acute abdominal sepsis and ARDS with respiratory failure. POSTOP DIAGNOSIS: Acute abdominal sepsis and ARDS with respiratory failure. ANESTHESIA: None deployed. PROCEDURE: The right brachial region was prepared in a sterile fashion and drapes were applied. The right brachial artery was palpated, cannulated, and a guidewire was placed. A Cook catheter was inserted over the guidewire, and the guidewire was removed. Good blood flow and good waveform were noted, no evidence of any immediate complications. Line was secured using 3.0 silk sutures. MMODL / IJN: [id number] /
--- NOTE | 2018-08-14 18:58 | XR ---
EXAMINATION: XR chest 1V portable DATE AND TIME: 08/14/2018 5:57 PM CLINICAL INDICATION: PHH; hypoxia TECHNIQUE: Departmental protocol COMPARISON: 08/14/2018 at 5:49 AM FINDINGS: AP semiupright portable technique. Since prior study tracheostomy tube has been placed with tip 2 cm above the suresh. Since the prior s tudy the NG tube is been removed. Left subclavian central line catheter remains with tip superimposed over the cavoatrial junction. EKG leads noted. Marked subcutaneous emphysema with evident pneumomediastinum redemonstrated. If anything, the subcuta neous emphysema appears slightly less conspicuous currently. The striking radiographic pattern of diffuse airspace filling process involving the upper and mid and lower lung zones bilaterally is redemonstrated without interval change. No new pulmonary or pleural process. IMPRESSION: STABLE FINDINGS; NO NEW PROCESS.
[2018-08-14 19:06] LABS: Glucose,Whole Blood 158 mg/dL (75-99)
[2018-08-14] MEDS: INSULIN REGULAR 100 UNIT in SODIUM CHLORIDE 0.9% 100 ML IV SCH (19:17)
[2018-08-14] MEDS: fentaNYL (PF) 1,000 MCG in SODIUM CHLORIDE 0.9% 80 ML IV SCH (20:10)
[2018-08-14 20:22] LABS: Glucose,Whole Blood 191 mg/dL (75-99)
[2018-08-14 21:28] LABS: Glucose,Whole Blood 219 mg/dL (75-99)
[2018-08-14 22:06] LABS: Glucose,Whole Blood 221 mg/dL (75-99)
[2018-08-14 23:42] LABS: Glucose,Whole Blood 211 mg/dL (75-99)
[2018-08-15 00:36] LABS: Glucose,Whole Blood 196 mg/dL (75-99)
[2018-08-15 01:11] LABS: Glucose,Whole Blood 209 mg/dL (75-99)
[2018-08-15 02:07] LABS: Glucose,Whole Blood 159 mg/dL (75-99)
[2018-08-15] MEDS: PROPOFOL 1,000 MG in EMPTY BAG 1 BAG IV SCH ×4 (03:28→23:29)
[2018-08-15 03:38] LABS: Glucose,Whole Blood 199 mg/dL (75-99)
[2018-08-15 04:44] LABS: Anisocytosis Slight; HCT 34.7 % (34.0-46.0); Hypochromasia Marked; MCH 28.1 pg (25.0-35.0); MCHC 28.8 g/dL (31.0-37.0); MCV 97.7 fL (80.0-100.0); Macrocytosis Slight; Mean Platelet Volume 9.9; Poikilocytosis Slight; RBC 3.55 m/uL (3.80-5.40)
[2018-08-15 04:51] LABS: Platelet Count 118 k/uL (150-450)
[2018-08-15 04:52] LABS: ALT 47 U/L (9-52); AST 38 U/L (14-36); Albumin 1.9 g/dL (3.5-5.0); Alkaline Phosphatase 209 U/L (38-126); Anion Gap 4 mmol/L; Blood Urea Nitrogen 48 mg/dL (7-17); Calcium 8.2 mg/dL (8.4-10.2); Carbon Dioxide 26 mmol/L (22-30); Chloride 111 mmol/L (98-107); Glucose 156 mg/dL (74-99); Magnesium 2.2 mg/dL (1.6-2.3); Phosphorus 4.4 mg/dL (2.5-4.5); Potassium 4.6 mmol/L (3.5-5.1); Sodium 141 mmol/L (137-145); Total Bilirubin 0.6 mg/dL (0.2-1.3); Total Protein 4.7 g/dL (6.3-8.2)
[2018-08-15] MEDS: fentaNYL (PF) 1,000 MCG in SODIUM CHLORIDE 0.9% 80 ML IV SCH (04:55)
[2018-08-15] MEDS: INSULIN REGULAR 100 UNIT in SODIUM CHLORIDE 0.9% 100 ML IV SCH (04:56)
[2018-08-15] MEDS ORDERED: VANCOMYCIN TROUGH DUE 1 EACH MISC MISCELLANE ONE (05:00)
--- NOTE | 2018-08-15 05:29 | PN ---
PROGRESS NOTE DATE OF SERVICE: 08/14/2018 REASON FOR FOLLOWUP: Abdominal sepsis. INTERVAL HISTORY: The patient is currently afebrile. The patient is status post tracheostomy today. The patient is hemodynamically stable. Not on any pressor support. FiO2 on 100% after the tracheostomy. She also had evaluation of abdominal wound, but no evidence of any further necrosis per the surgeon. PHYSICAL EXAMINATION: On examination, her blood pressure is 120/59 with a pulse of 104, temperature 98.1. She is 93% on 100% FiO2. General description is a middle aged female intubated on the vent. HEENT EXAMINATION: Pallor. LUNGS: Unlabored breathing with decreased breath sounds at the bases. HEART: S1, S2. Regular. ABDOMEN: Soft. Midline incision open with no significant drainage. EXTREMITIES: No edema of the feet. LABS: Hemoglobin is 10.5, white count 15.8. BUN of 45, creatinine 0.57. Repeat cultures have been negative so far. DIAGNOSTIC IMPRESSION AND PLAN: Patient with abdominal sepsis in this patient who did have a sigmoid diverticulitis requiring 2 different surgery for perforation, also with acute respiratory failure, status post tracheostomy. Overall prognosis remains to be guarded. The patient is currently covered with Zosyn, vancomycin, to continue for now. Family present at the bedside. Questions were answered. MMODL / IJN: [id number] /
[2018-08-15] MEDS ORDERED: VANCOMYCIN IV PER PHARMACY 1 EACH MISC MISCELLANE PRN (05:46)
[2018-08-15 05:51] LABS: Glucose,Whole Blood 142 mg/dL (75-99)
[2018-08-15 06:08] LABS: Glucose,Whole Blood 163 mg/dL (75-99)
[2018-08-15 06:11] LABS: Band Neutrophils % 32 %; Lymphocytes # (M) 1.41 k/uL (1.0-4.8); Metamyelocytes # (M) 0.24 k/uL (0); Metamyelocytes % 1 %; Monocytes # (M) 0.24 k/uL (0-1.0); Myelocytes # (M) 0.24 k/uL (0); Myelocytes % 1 %; Neutrophils % (M) 61 %; Nucleated Red Blood Cells 2 /100 WBC (0-0); Total Cells Counted 200; WBC 23.5 k/uL (3.8-10.6)
[2018-08-15 06:12] LABS: Large Platelets Present; Polychromasia Present
[2018-08-15] MEDS ORDERED: SODIUM CHLORIDE 0.9% 1,000 ML IV ONE (06:52)
[2018-08-15] MEDS: SODIUM CHLORIDE 0.45% 1,000 ML IV SCH ×2 (06:55→18:22)
[2018-08-15 07:05] LABS: Glucose,Whole Blood 126 mg/dL (75-99)
[2018-08-15 07:33] LABS: ABG Base Excess -5.1 mmol/L; ABG HCO3 25 mmol/L (21-25); ABG Oxygen Saturation 99.2 % (94-97); ABG PO2 198 mmHg (83-108); ABG TCO2 28 mmol/L (19-24)
[2018-08-15] MEDS: IPRATROPIUM-ALBUTEROL 3 ML NEB INHALATION SCH ×4 (07:37→19:36)
[2018-08-15 07:41] LABS: ABG PCO2 90 mmHg (35-45); ABG PH 7.06 (7.35-7.45)
[2018-08-15] MEDS: METOCLOPRAMIDE 5 MG/ML 2 ML VIAL IVP SCH ×4 (07:46→23:35)
--- NOTE | 2018-08-15 08:13 | XR ---
EXAMINATION TYPE: XR chest 1V portable DATE OF EXAM: 08/15/2018 Comparison: 08/14/2018 Clinical History: 58 year-old female follow-up ARDS Findings: Tracheostomy cannula. NG tube is present. Left subclavian CVC tip remains in the right atrium. Heart normal size. Diffuse interstitial and patchy confluent airspace opacities persist without significant interval change. Cutaneous emphysema along the right greater the left chest tobin. Impression: Stable diffuse bilateral interstitial and airspace disease. The previously seen pneumomediastinum is not as apparent on the current study.
[2018-08-15 08:59] LABS: Glucose,Whole Blood 112 mg/dL (75-99)
[2018-08-15 09:14] LABS: ABG Base Excess -4.4 mmol/L; ABG HCO3 25 mmol/L (21-25); ABG Oxygen Saturation 96.9 % (94-97); ABG PO2 98 mmHg (83-108); ABG TCO2 27 mmol/L (19-24)
[2018-08-15 09:25] LABS: ABG PH 7.13 (7.35-7.45)
[2018-08-15 09:26] LABS: ABG PCO2 74 mmHg (35-45)
[2018-08-15] MEDS ORDERED: HYDROGEN PEROXIDE BOTTLE TOPICAL ONE (10:42)
[2018-08-15] MEDS: ANIDULAFUNGIN 100 MG in SODIUM CHLORIDE 0.9% 100 ML IVPB SCH (10:49)
[2018-08-15] MEDS: HYDROCORTISONE SUCCINATE 100 MG/2 ML VIAL IV SCH ×3 (10:49→23:30)
[2018-08-15] MEDS: PIPERACILLIN-TAZOBACTAM 3.375 GM in SODIUM CHLORIDE 0.9% 100 ML IVPB SCH ×3 (10:49→23:36)
--- NOTE | 2018-08-15 10:49 | P.PN ---
Subjective Progress Note Date: 08/15/18 CHIEF COMPLAINT: Abdominal pain HISTORY OF PRESENT ILLNESS: Patient examined at the bedside. patient underwent trach yesterday and wound debridement. Patient remains sedated on mechanical ventilation. PHYSICAL EXAM: VITAL SIGNS: Currently stable. GENERAL: Sedated on ventilator. HEENT: Trach noted. No sclera icterus. Extraocular movements grossly intact. Dry mucusa with old bloody drainage noted. Head is normocephalic. No nasal drainage. NECK: Supple without lymphadenopathy. CHEST: Equal bilateral excursions. Currently vented. CARDIOVASCULAR: Regular rate with regular rhythm. ABDOMEN: Distended. Ostomy x 2 with serous drainage. Abdominal dressing CDI. NEUROLOGIC: Unable to assess secondary to intubation PSYCH: Unable to assess secondary to intubation ASSESSMENT: 1. Small bowel obstruction with perforated sigmoid colon and fecal peritonitis 2. Status post sigmoid colectomy with end colostomy, takedown of splenic flexure, small bowel resection 2, and appendectomy 3. Postoperative ileus 4. S/P repeat exploratory laparotomy and small bowel resection and abscess drainage and diverting ileostomy 5. S/P tracheostomy PLAN: 1. ICU management per food services manager. 2. Continue TPN 3. Daily wet to dry dressing changes of abdominal wound Nurse practitioner note has been reviewed by physician. Signing provider agrees with the documented findings, assessment, and plan of care. Objective - Vital Signs Vital signs: Vital Signs Temp 97.5 F L 08/15/18 06:00 Pulse 98 08/15/18 07:46 Resp 23 08/15/18 07:00 BP 97/56 08/14/18 17:00 Pulse Ox 96 08/15/18 07:00 Intake & Output 08/14/18 08/15/18 08/15/18 18:59 06:59 18:59 Intake Total 4978.611 2068.489 1107.233 Output Total 1805 455 105 Balance 148.501 805.052 8382.233 Weight 77.7 kg 75.3 kg Intake: IV 1628.98 1056.92 1077.66 Anidulafungin 100 mg In 100 Sodium Chloride 0.9% 100 ml @ 84 mls/hr IVPB DAILY [facility] Rx#:[id number] Fentanyl 50 60 5 Mvi, Adult No.4 with Vit 450 540 45 K 10 ml Trace (Conc-1Ml/ Dose) 1 ml Parenteral Electrolytes 20 ml Potassium Chloride 20 meq In Amino Acid 5%-D15w 1, 000 ml @ 45 mls/hr IV . Q23H8M [facility] Rx#:[id number] NImbex 13.98 55.92 4.66 Pressure bag 15 36 3 Sodium Chloride 0.45% 1, 200 240 20 000 ml @ 20 mls/hr IV . Q24H [facility] Rx#:[id number] Sodium Chloride 0.9% 1, 1000 000 ml @ 999 mls/hr IV . Q1H1M [facility] Rx#:[id number] potassium chloride 100 zosyn 200 125 Intake, IV Titration 324.521 342.569 29.573 Amount Insulin Regular 100 unit 39.462 60.422 5.088 In Sodium Chloride 0.9% 100 ml @ Per Protocol IV .Q0M [facility] Rx#:[id number] Norepinephrine 32 mg In 22.78 Sodium Chloride 0.9% 218 ml @ 0.05 MCG/KG/MIN 1.82 mls/hr IV .Q24H [facility] Rx#: [id number] Norepinephrine 32 mg In 6.398 5.493 Sodium Chloride 0.9% 250 ml @ 0.1 MCG/KG/MIN 4.28 mls/hr IV .Q24H [facility] Rx#: [id number] Propofol 1,000 mg In 193.258 209.044 Empty Bag 1 bag @ Titrate IV .Q0M [facility] Rx#: [id number] fentaNYL (PF) 1,000 mcg 91.801 43.925 18.992 In Sodium Chloride 0.9% 80 ml @ 0.62 MCG/KG/HR 5. 02 mls/hr IV .[id number] [facility] Rx#:[id number] Output: Gastric Drainage 225 Drainage 80 80 Right Abdomen 80 80 Urine 1355 375 25 Stool 200 Estimated Blood Loss 25 Other: Voiding Method Indwelling Catheter Indwelling Catheter ABP, PAP, CO, CI - Last Documented Arterial Blood Pressure 123/59 - Labs CBC & Chem 7: 08/15/18 03:21 08/15/18 03:21 Labs: Abnormal Lab Results - Last 24 Hours (Table) 08/11/18 08/14/18 08/14/18 Range/Units 04:48 12:44 14:40 WBC (3.8-10.6) k/uL RBC (3.80-5.40) m/uL Hgb (11.4-16.0) gm/dL MCHC (31.0-37.0) g/dL RDW (11.5-15.5) % Plt Count (150-450) k/uL Neutrophils # (Manual) (1.3-7.7) k/uL Metamyelocytes # (Man) (0) k/uL Myelocytes # (Manual) (0) k/uL Nucleated RBCs (0-0) /100 WBC ABG pH (7.35-7.45) ABG pCO2 (35-45) mmHg ABG pO2 (83-108) mmHg ABG HCO3 (21-25) mmol/L ABG Total CO2 (19-24) mmol/L ABG O2 Saturation (94-97) % Chloride (98-107) mmol/L BUN (7-17) mg/dL Glucose (74-99) mg/dL POC Glucose (mg/dL) 107 H 130 H (75-99) mg/dL Calcium (8.4-10.2) mg/dL AST (14-36) U/L Alkaline Phosphatase (38-126) U/L Total Protein (6.3-8.2) g/dL Albumin (3.5-5.0) g/dL Vancomycin Trough 30.4 H* ug/mL 08/14/18 08/14/18 08/14/18 Range/Units 15:55 17:04 17:34 WBC (3.8-10.6) k/uL RBC (3.80-5.40) m/uL Hgb (11.4-16.0) gm/dL MCHC (31.0-37.0) g/dL RDW (11.5-15.5) % Plt Count (150-450) k/uL Neutrophils # (Manual) (1.3-7.7) k/uL Metamyelocytes # (Man) (0) k/uL Myelocytes # (Manual) (0) k/uL Nucleated RBCs (0-0) /100 WBC ABG pH 7.33 L (7.35-7.45) ABG pCO2 52 H (35-45) mmHg ABG pO2 72 L (83-108) mmHg ABG HCO3 27 H (21-25) mmol/L ABG Total CO2 29 H (19-24) mmol/L ABG O2 Saturation (94-97) % Chloride (98-107) mmol/L BUN (7-17) mg/dL Glucose (74-99) mg/dL POC Glucose (mg/dL) 117 H 171 H (75-99) mg/dL Calcium (8.4-10.2) mg/dL AST (14-36) U/L Alkaline Phosphatase (38-126) U/L Total Protein (6.3-8.2) g/dL Albumin (3.5-5.0) g/dL Vancomycin Trough ug/mL 08/14/18 08/14/18 08/14/18 Range/Units 19:02 20:19 21:24 WBC (3.8-10.6) k/uL RBC (3.80-5.40) m/uL Hgb (11.4-16.0) gm/dL MCHC (31.0-37.0) g/dL RDW (11.5-15.5) % Plt Count (150-450) k/uL Neutrophils # (Manual) (1.3-7.7) k/uL Metamyelocytes # (Man) (0) k/uL Myelocytes # (Manual) (0) k/uL Nucleated RBCs (0-0) /100 WBC ABG pH (7.35-7.45) ABG pCO2 (35-45) mmHg ABG pO2 (83-108) mmHg ABG HCO3 (21-25) mmol/L ABG Total CO2 (19-24) mmol/L ABG O2 Saturation (94-97) % Chloride (98-107) mmol/L BUN (7-17) mg/dL Glucose (74-99) mg/dL POC Glucose (mg/dL) 158 H 191 H 219 H (75-99) mg/dL Calcium (8.4-10.2) mg/dL AST (14-36) U/L Alkaline Phosphatase (38-126) U/L Total Protein (6.3-8.2) g/dL Albumin (3.5-5.0) g/dL Vancomycin Trough ug/mL 08/14/18 08/14/18 08/14/18 Range/Units 22:03 23:15 23:58 WBC (3.8-10.6) k/uL RBC (3.80-5.40) m/uL Hgb (11.4-16.0) gm/dL MCHC (31.0-37.0) g/dL RDW (11.5-15.5) % Plt Count (150-450) k/uL Neutrophils # (Manual) (1.3-7.7) k/uL Metamyelocytes # (Man) (0) k/uL Myelocytes # (Manual) (0) k/uL Nucleated RBCs (0-0) /100 WBC ABG pH (7.35-7.45) ABG pCO2 (35-45) mmHg ABG pO2 (83-108) mmHg ABG HCO3 (21-25) mmol/L ABG Total CO2 (19-24) mmol/L ABG O2 Saturation (94-97) % Chloride (98-107) mmol/L BUN (7-17) mg/dL Glucose (74-99) mg/dL POC Glucose (mg/dL) 221 H 211 H 196 H (75-99) mg/dL Calcium (8.4-10.2) mg/dL AST (14-36) U/L Alkaline Phosphatase (38-126) U/L Total Protein (6.3-8.2) g/dL Albumin (3.5-5.0) g/dL Vancomycin Trough ug/mL 08/15/18 08/15/18 08/15/18 Range/Units 01:08 02:04 03:21 WBC 23.5 H (3.8-10.6) k/uL RBC 3.55 L (3.80-5.40) m/uL Hgb 10.0 L (11.4-16.0) gm/dL MCHC 28.8 L (31.0-37.0) g/dL RDW 19.0 H (11.5-15.5) % Plt Count 118 L D (150-450) k/uL Neutrophils # (Manual) 21.80 H (1.3-7.7) k/uL Metamyelocytes # (Man) 0.24 H (0) k/uL Myelocytes # (Manual) 0.24 H (0) k/uL Nucleated RBCs 2 H (0-0) /100 WBC ABG pH (7.35-7.45) ABG pCO2 (35-45) mmHg ABG pO2 (83-108) mmHg ABG HCO3 (21-25) mmol/L ABG Total CO2 (19-24) mmol/L ABG O2 Saturation (94-97) % Chloride (98-107) mmol/L BUN (7-17) mg/dL Glucose (74-99) mg/dL POC Glucose (mg/dL) 209 H 159 H (75-99) mg/dL Calcium (8.4-10.2) mg/dL AST (14-36) U/L Alkaline Phosphatase (38-126) U/L Total Protein (6.3-8.2) g/dL Albumin (3.5-5.0) g/dL Vancomycin Trough ug/mL 08/15/18 08/15/18 08/15/18 Range/Units 03:21 03:21 03:24 WBC (3.8-10.6) k/uL RBC (3.80-5.40) m/uL Hgb (11.4-16.0) gm/dL MCHC (31.0-37.0) g/dL RDW (11.5-15.5) % Plt Count (150-450) k/uL Neutrophils # (Manual) (1.3-7.7) k/uL Metamyelocytes # (Man) (0) k/uL Myelocytes # (Manual) (0) k/uL Nucleated RBCs (0-0) /100 WBC ABG pH (7.35-7.45) ABG pCO2 (35-45) mmHg ABG pO2 (83-108) mmHg ABG HCO3 (21-25) mmol/L ABG Total CO2 (19-24) mmol/L ABG O2 Saturation (94-97) % Chloride 111 H (98-107) mmol/L BUN 48 H (7-17) mg/dL Glucose 156 H (74-99) mg/dL POC Glucose (mg/dL) 199 H (75-99) mg/dL Calcium 8.2 L (8.4-10.2) mg/dL AST 38 H (14-36) U/L Alkaline Phosphatase 209 H (38-126) U/L Total Protein 4.7 L (6.3-8.2) g/dL Albumin 1.9 L (3.5-5.0) g/dL Vancomycin Trough 31.5 H* ug/mL 08/15/18 08/15/18 08/15/18 Range/Units 05:25 06:04 07:02 WBC (3.8-10.6) k/uL RBC (3.80-5.40) m/uL Hgb (11.4-16.0) gm/dL MCHC (31.0-37.0) g/dL RDW (11.5-15.5) % Plt Count (150-450) k/uL Neutrophils # (Manual) (1.3-7.7) k/uL Metamyelocytes # (Man) (0) k/uL Myelocytes # (Manual) (0) k/uL Nucleated RBCs (0-0) /100 WBC ABG pH (7.35-7.45) ABG pCO2 (35-45) mmHg ABG pO2 (83-108) mmHg ABG HCO3 (21-25) mmol/L ABG Total CO2 (19-24) mmol/L ABG O2 Saturation (94-97) % Chloride (98-107) mmol/L BUN (7-17) mg/dL Glucose (74-99) mg/dL POC Glucose (mg/dL) 142 H 163 H 126 H (75-99) mg/dL Calcium (8.4-10.2) mg/dL AST (14-36) U/L Alkaline Phosphatase (38-126) U/L Total Protein (6.3-8.2) g/dL Albumin (3.5-5.0) g/dL Vancomycin Trough ug/mL 08/15/18 08/15/18 08/15/18 Range/Units 07:28 08:55 09:08 WBC (3.8-10.6) k/uL RBC (3.80-5.40) m/uL Hgb (11.4-16.0) gm/dL MCHC (31.0-37.0) g/dL RDW (11.5-15.5) % Plt Count (150-450) k/uL Neutrophils # (Manual) (1.3-7.7) k/uL Metamyelocytes # (Man) (0) k/uL Myelocytes # (Manual) (0) k/uL Nucleated RBCs (0-0) /100 WBC ABG pH 7.06 L* 7.13 L* (7.35-7.45) ABG pCO2 90 H* 74 H* (35-45) mmHg ABG pO2 198 H (83-108) mmHg ABG HCO3 (21-25) mmol/L ABG Total CO2 28 H 27 H (19-24) mmol/L ABG O2 Saturation 99.2 H (94-97) % Chloride (98-107) mmol/L BUN (7-17) mg/dL Glucose (74-99) mg/dL POC Glucose (mg/dL) 112 H (75-99) mg/dL Calcium (8.4-10.2) mg/dL AST (14-36) U/L Alkaline Phosphatase (38-126) U/L Total Protein (6.3-8.2) g/dL Albumin (3.5-5.0) g/dL Vancomycin Trough ug/mL Microbiology - Last 24 Hours (Table) 08/10/18 18:30 Blood Culture - Preliminary Blood No Growth after 96 hours 08/09/18 16:50 Blood Culture - Preliminary Blood No Growth after 120 hours 08/13/18 14:50 Blood Culture - Preliminary Blood No Growth after 24 hours 08/09/18 16:50 Blood Culture Gram Stain - Final Blood Blood Culture - Final Staphylococcus epidermidis Assessment and Plan (1) Abdominal pain Current Visit: Yes Status: Acute Code(s): R10.9 - UNSPECIFIED ABDOMINAL PAIN SNOMED Code(s): 26735068 (2) Decreased oral intake Current Visit: Yes Status: Acute Code(s): R63.8 - OTHER SYMPTOMS AND SIGNS CONCERNING FOOD AND FLUID INTAKE SNOMED Code(s): 653434365 (3) Colonic diverticular abscess Current Visit: Yes Status: Acute Code(s): K57.20 - DVTRCLI OF LG INT W PERFORATION AND ABSCESS W/O BLEEDING SNOMED Code(s): 032590184 (4) Partial bowel obstruction Current Visit: Yes Status: Acute Code(s): K56.600 - PARTIAL INTESTINAL OBSTRUCTION, UNSPECIFIED TO CAUSE SNOMED Code(s): 22505713
[2018-08-15] MEDS: PANTOPRAZOLE 40 MG/10 ML VIAL IVP SCH (10:50)
[2018-08-15] MEDS: FUROSEMIDE 10 MG/ML 4 ML VIAL IV SCH (10:50)
[2018-08-15] MEDS: CHLORHEXIDINE GLUCONATE 15 ML CUP MUCOUS MEM SCH ×2 (10:50→20:46)
[2018-08-15] MEDS: CISATRACURIUM 200 MG in SODIUM CHLORIDE 0.9% 180 ML IV SCH ×2 (10:50→23:36)
[2018-08-15 11:08] LABS: Glucose,Whole Blood 122 mg/dL (75-99)
--- NOTE | 2018-08-15 12:30 | P.PN ---
Subjective Progress Note Date: 08/15/18 Principal diagnosis: Acute hypoxic respiratory failure secondary to ARDS, and abdominal sepsis. Patient was reevaluated today on 08/14/2018, remains on mechanical ventilation, she remains on relatively high PEEP of 12, and high FiO2 of 65% with marginal O2 saturation. O2 saturation was 93% at best. ABG could not be done this morning, the right radial arterial line was nonfunctional and it was removed. And she had issues related to her left radial arterial line which was discontinued because of ischemic changes of the left thumb. Patient remains on assist control rate of 30 tidal volume of 350 PEEP of 12 and FiO2 of 65%. Remains on fentanyl roughly about 50 mcg/m, insulin drip at 4.5 units per hour, and propofol drip at 40 mcg/kg/m. Considering the patient is still requiring high FiO2 and high PEEP, and she seems to be a bit tachypneic, I went ahead and recommended that the patient gets to be placed on Nimbex. She is scheduled to undergo tracheostomy today. Chest x-ray showed significant bilateral interstitial changes consistent with ARDS, significant subcutaneous emphysema is noted, no evidence of pneumothorax, and no evidence of pneumomediastinum. Fortunately, the patient is not requiring any pressors at this point. Urine output seems to be adequate, the pressure is adequate. She does have a net positive fluid balance. There is however significant amount of seepage noted from the skin surfaces specially skin of lower extremities. Colostomy is nonfunctional ileostomy is functioning. Patient remains on TPN. Necrotic left stump remains about the same. Patient was reevaluated today on 08/15/2018, she underwent tracheostomy yesterday. Postoperative ABG was poor, hence she was placed back on 100% FiO2 overnight, PEEP remains at 12, her gases this morning showed significant improvement, hence I was able to cut down the FiO2 to 55%, and I increased the PEEP to 15. Follow-up ABG this morning showed a pO2 of 98, pCO2 of 74 pH of 7.13. CBC is showing leukocytosis again with WBC count of 23.5, hemoglobin is 10. Platelets are 118,000. Basic metabolic profile is normal, renal profile showed a BUN of 48 creatinine of 0.75. Patient is now on multiple drips including propofol, 40 mcg/kg/m, fentanyl at 25 mcg/h, norepinephrine at 3.5 mcg /m. She is also on Nimbex drip. Titrated as per protocol. Her ventilator settings this morning were adjusted, she is presently on assist control rate of 56. Tidal volume of 350, FiO2 is 55%, and PEEP is 15. Chest x-ray continues to show diffuse bilateral interstitial infiltrates and airspace disease. No evidence of pneumothorax, and no evidence of pneumomediastinum. Recent blood cultures from 08/13/2018 remain negative. And urine cultures have been negative since 08/09/2018. Patient remains on DuoNeb updrafts,anidulafungin, Solu-Cortef which I will cut down to 50 mg every 8 hours, Zosyn, and vancomycin. Objective - Vital Signs Vital signs: Vital Signs Temp 93.8 F L 08/15/18 12:00 Pulse 84 08/15/18 12:00 Resp 36 H 08/15/18 12:00 BP 97/56 08/14/18 17:00 Pulse Ox 92 L 08/15/18 12:00 Intake & Output 08/14/18 08/15/18 08/15/18 18:59 06:59 18:59 Intake Total 6996.887 7154.489 1523.976 Output Total 1805 455 330 Balance 148.501 180.984 4178.976 Weight 77.7 kg 75.3 kg Intake: IV 1628.98 1056.92 1392.66 Anidulafungin 100 mg In 100 100 Sodium Chloride 0.9% 100 ml @ 84 mls/hr IVPB DAILY [facility] Rx#:[id number] Fentanyl 50 60 5 Mvi, Adult No.4 with Vit 450 540 45 K 10 ml Trace (Conc-1Ml/ Dose) 1 ml Parenteral Electrolytes 20 ml Potassium Chloride 20 meq In Amino Acid 5%-D15w 1, 000 ml @ 45 mls/hr IV . Q23H8M [facility] Rx#:[id number] NImbex 13.98 55.92 4.66 Piperacillin-Tazobactam 3 100 .375 gm In Sodium Chloride 0.9% 100 ml @ 25 mls/hr IVPB Q8HR [facility] Rx# :[id number] Pressure bag 15 36 18 Sodium Chloride 0.45% 1, 200 240 120 000 ml @ 20 mls/hr IV . Q24H [facility] Rx#:[id number] Sodium Chloride 0.9% 1, 1000 000 ml @ 999 mls/hr IV . Q1H1M [facility] Rx#:[id number] potassium chloride 100 zosyn 200 125 Intake, IV Titration 324.521 342.569 131.316 Amount Cisatracurium 200 mg In 101.743 Sodium Chloride 0.9% 180 ml @ 1 MCG/KG/MIN 4.66 mls/hr IV .Q24H [facility] Rx#: [id number] Insulin Regular 100 unit 39.462 60.422 5.088 In Sodium Chloride 0.9% 100 ml @ Per Protocol IV .Q0M [facility] Rx#:[id number] Norepinephrine 32 mg In 22.78 Sodium Chloride 0.9% 218 ml @ 0.05 MCG/KG/MIN 1.82 mls/hr IV .Q24H [facility] Rx#: [id number] Norepinephrine 32 mg In 6.398 5.493 Sodium Chloride 0.9% 250 ml @ 0.1 MCG/KG/MIN 4.28 mls/hr IV .Q24H [facility] Rx#: [id number] Propofol 1,000 mg In 193.258 209.044 Empty Bag 1 bag @ Titrate IV .Q0M [facility] Rx#: [id number] fentaNYL (PF) 1,000 mcg 91.801 43.925 18.992 In Sodium Chloride 0.9% 80 ml @ 0.62 MCG/KG/HR 5. 02 mls/hr IV .[id number] [facility] Rx#:[id number] Output: Gastric Drainage 225 Drainage 80 80 Right Abdomen 80 80 Urine 1355 375 150 Stool 200 100 Estimated Blood Loss 25 Other: Voiding Method Indwelling Catheter Indwelling Catheter Indwelling Catheter ABP, PAP, CO, CI - Last Documented Arterial Blood Pressure 118/49 - Exam Physical Exam: Revealed a 58-year-old female on mechanical ventilation, fully sedated and paralyzed. Head: Atraumatic, normocephalic. There is evidence of resolution of her subcutaneous emphysema per HEENT:[Neck is supple.] [No neck masses.] [No thyromegaly.] [No JVD.] PERRLA, EOMI, no icterus. Dry mucous membranes were noted. Minimal bleeding and oozing noted from the oral mucosa and lips. Chest: Good breath sound bilaterally, no crackles or rhonchi or wheezes. symmetrical chest expansion was noted. Cardiac Exam: [Normal S1 and S2, no S3 gallop, no murmur.] Abdomen: [Abdominal wound, remains open, colostomy and ileostomy tubes were noted. Dark material noted in both legs. Abdominal wall is swollen and edematous. Bowel sounds are hypoactive. Necrosis of the subcutaneous tissue along the wound borders noted bilaterally. Neurological Exam: Cannot be assessed sedated and paralyzed. Psychiatric: Cannot be assessed. Skin/extremities. Evidence of poor perfusion to the tips of the fingers in both hands however more pronounced in the left thumb area with ischemic changes and necrosis. Tips of the other fingers in the right hand are also noted to show some dark discoloration at the tips mostly. That is being addressed by vascular surgery on the case. There is evidence of significant seeping of serous drainage from lower extremities. Significant edema is noted in both lower extremities. - Labs CBC & Chem 7: 08/15/18 03:21 08/15/18 03:21 Labs: Abnormal Lab Results - Last 24 Hours (Table) 08/11/18 08/14/18 08/14/18 Range/Units 04:48 12:44 14:40 WBC (3.8-10.6) k/uL RBC (3.80-5.40) m/uL Hgb (11.4-16.0) gm/dL MCHC (31.0-37.0) g/dL RDW (11.5-15.5) % Plt Count (150-450) k/uL Neutrophils # (Manual) (1.3-7.7) k/uL Metamyelocytes # (Man) (0) k/uL Myelocytes # (Manual) (0) k/uL Nucleated RBCs (0-0) /100 WBC ABG pH (7.35-7.45) ABG pCO2 (35-45) mmHg ABG pO2 (83-108) mmHg ABG HCO3 (21-25) mmol/L ABG Total CO2 (19-24) mmol/L ABG O2 Saturation (94-97) % Chloride (98-107) mmol/L BUN (7-17) mg/dL Glucose (74-99) mg/dL POC Glucose (mg/dL) 107 H 130 H (75-99) mg/dL Calcium (8.4-10.2) mg/dL AST (14-36) U/L Alkaline Phosphatase (38-126) U/L Total Protein (6.3-8.2) g/dL Albumin (3.5-5.0) g/dL Vancomycin Trough 30.4 H* ug/mL 08/14/18 08/14/18 08/14/18 Range/Units 15:55 17:04 17:34 WBC (3.8-10.6) k/uL RBC (3.80-5.40) m/uL Hgb (11.4-16.0) gm/dL MCHC (31.0-37.0) g/dL RDW (11.5-15.5) % Plt Count (150-450) k/uL Neutrophils # (Manual) (1.3-7.7) k/uL Metamyelocytes # (Man) (0) k/uL Myelocytes # (Manual) (0) k/uL Nucleated RBCs (0-0) /100 WBC ABG pH 7.33 L (7.35-7.45) ABG pCO2 52 H (35-45) mmHg ABG pO2 72 L (83-108) mmHg ABG HCO3 27 H (21-25) mmol/L ABG Total CO2 29 H (19-24) mmol/L ABG O2 Saturation (94-97) % Chloride (98-107) mmol/L BUN (7-17) mg/dL Glucose (74-99) mg/dL POC Glucose (mg/dL) 117 H 171 H (75-99) mg/dL Calcium (8.4-10.2) mg/dL AST (14-36) U/L Alkaline Phosphatase (38-126) U/L Total Protein (6.3-8.2) g/dL Albumin (3.5-5.0) g/dL Vancomycin Trough ug/mL 08/14/18 08/14/18 08/14/18 Range/Units 19:02 20:19 21:24 WBC (3.8-10.6) k/uL RBC (3.80-5.40) m/uL Hgb (11.4-16.0) gm/dL MCHC (31.0-37.0) g/dL RDW (11.5-15.5) % Plt Count (150-450) k/uL Neutrophils # (Manual) (1.3-7.7) k/uL Metamyelocytes # (Man) (0) k/uL Myelocytes # (Manual) (0) k/uL Nucleated RBCs (0-0) /100 WBC ABG pH (7.35-7.45) ABG pCO2 (35-45) mmHg ABG pO2 (83-108) mmHg ABG HCO3 (21-25) mmol/L ABG Total CO2 (19-24) mmol/L ABG O2 Saturation (94-97) % Chloride (98-107) mmol/L BUN (7-17) mg/dL Glucose (74-99) mg/dL POC Glucose (mg/dL) 158 H 191 H 219 H (75-99) mg/dL Calcium (8.4-10.2) mg/dL AST (14-36) U/L Alkaline Phosphatase (38-126) U/L Total Protein (6.3-8.2) g/dL Albumin (3.5-5.0) g/dL Vancomycin Trough ug/mL 08/14/18 08/14/18 08/14/18 Range/Units 22:03 23:15 23:58 WBC (3.8-10.6) k/uL RBC (3.80-5.40) m/uL Hgb (11.4-16.0) gm/dL MCHC (31.0-37.0) g/dL RDW (11.5-15.5) % Plt Count (150-450) k/uL Neutrophils # (Manual) (1.3-7.7) k/uL Metamyelocytes # (Man) (0) k/uL Myelocytes # (Manual) (0) k/uL Nucleated RBCs (0-0) /100 WBC ABG pH (7.35-7.45) ABG pCO2 (35-45) mmHg ABG pO2 (83-108) mmHg ABG HCO3 (21-25) mmol/L ABG Total CO2 (19-24) mmol/L ABG O2 Saturation (94-97) % Chloride (98-107) mmol/L BUN (7-17) mg/dL Glucose (74-99) mg/dL POC Glucose (mg/dL) 221 H 211 H 196 H (75-99) mg/dL Calcium (8.4-10.2) mg/dL AST (14-36) U/L Alkaline Phosphatase (38-126) U/L Total Protein (6.3-8.2) g/dL Albumin (3.5-5.0) g/dL Vancomycin Trough ug/mL 08/15/18 08/15/18 08/15/18 Range/Units 01:08 02:04 03:21 WBC 23.5 H (3.8-10.6) k/uL RBC 3.55 L (3.80-5.40) m/uL Hgb 10.0 L (11.4-16.0) gm/dL MCHC 28.8 L (31.0-37.0) g/dL RDW 19.0 H (11.5-15.5) % Plt Count 118 L D (150-450) k/uL Neutrophils # (Manual) 21.80 H (1.3-7.7) k/uL Metamyelocytes # (Man) 0.24 H (0) k/uL Myelocytes # (Manual) 0.24 H (0) k/uL Nucleated RBCs 2 H (0-0) /100 WBC ABG pH (7.35-7.45) ABG pCO2 (35-45) mmHg ABG pO2 (83-108) mmHg ABG HCO3 (21-25) mmol/L ABG Total CO2 (19-24) mmol/L ABG O2 Saturation (94-97) % Chloride (98-107) mmol/L BUN (7-17) mg/dL Glucose (74-99) mg/dL POC Glucose (mg/dL) 209 H 159 H (75-99) mg/dL Calcium (8.4-10.2) mg/dL AST (14-36) U/L Alkaline Phosphatase (38-126) U/L Total Protein (6.3-8.2) g/dL Albumin (3.5-5.0) g/dL Vancomycin Trough ug/mL 08/15/18 08/15/18 08/15/18 Range/Units 03:21 03:21 03:24 WBC (3.8-10.6) k/uL RBC (3.80-5.40) m/uL Hgb (11.4-16.0) gm/dL MCHC (31.0-37.0) g/dL RDW (11.5-15.5) % Plt Count (150-450) k/uL Neutrophils # (Manual) (1.3-7.7) k/uL Metamyelocytes # (Man) (0) k/uL Myelocytes # (Manual) (0) k/uL Nucleated RBCs (0-0) /100 WBC ABG pH (7.35-7.45) ABG pCO2 (35-45) mmHg ABG pO2 (83-108) mmHg ABG HCO3 (21-25) mmol/L ABG Total CO2 (19-24) mmol/L ABG O2 Saturation (94-97) % Chloride 111 H (98-107) mmol/L BUN 48 H (7-17) mg/dL Glucose 156 H (74-99) mg/dL POC Glucose (mg/dL) 199 H (75-99) mg/dL Calcium 8.2 L (8.4-10.2) mg/dL AST 38 H (14-36) U/L Alkaline Phosphatase 209 H (38-126) U/L Total Protein 4.7 L (6.3-8.2) g/dL Albumin 1.9 L (3.5-5.0) g/dL Vancomycin Trough 31.5 H* ug/mL 08/15/18 08/15/18 08/15/18 Range/Units 05:25 06:04 07:02 WBC (3.8-10.6) k/uL RBC (3.80-5.40) m/uL Hgb (11.4-16.0) gm/dL MCHC (31.0-37.0) g/dL RDW (11.5-15.5) % Plt Count (150-450) k/uL Neutrophils # (Manual) (1.3-7.7) k/uL Metamyelocytes # (Man) (0) k/uL Myelocytes # (Manual) (0) k/uL Nucleated RBCs (0-0) /100 WBC ABG pH (7.35-7.45) ABG pCO2 (35-45) mmHg ABG pO2 (83-108) mmHg ABG HCO3 (21-25) mmol/L ABG Total CO2 (19-24) mmol/L ABG O2 Saturation (94-97) % Chloride (98-107) mmol/L BUN (7-17) mg/dL Glucose (74-99) mg/dL POC Glucose (mg/dL) 142 H 163 H 126 H (75-99) mg/dL Calcium (8.4-10.2) mg/dL AST (14-36) U/L Alkaline Phosphatase (38-126) U/L Total Protein (6.3-8.2) g/dL Albumin (3.5-5.0) g/dL Vancomycin Trough ug/mL 08/15/18 08/15/18 08/15/18 Range/Units 07:28 08:55 09:08 WBC (3.8-10.6) k/uL RBC (3.80-5.40) m/uL Hgb (11.4-16.0) gm/dL MCHC (31.0-37.0) g/dL RDW (11.5-15.5) % Plt Count (150-450) k/uL Neutrophils # (Manual) (1.3-7.7) k/uL Metamyelocytes # (Man) (0) k/uL Myelocytes # (Manual) (0) k/uL Nucleated RBCs (0-0) /100 WBC ABG pH 7.06 L* 7.13 L* (7.35-7.45) ABG pCO2 90 H* 74 H* (35-45) mmHg ABG pO2 198 H (83-108) mmHg ABG HCO3 (21-25) mmol/L ABG Total CO2 28 H 27 H (19-24) mmol/L ABG O2 Saturation 99.2 H (94-97) % Chloride (98-107) mmol/L BUN (7-17) mg/dL Glucose (74-99) mg/dL POC Glucose (mg/dL) 112 H (75-99) mg/dL Calcium (8.4-10.2) mg/dL AST (14-36) U/L Alkaline Phosphatase (38-126) U/L Total Protein (6.3-8.2) g/dL Albumin (3.5-5.0) g/dL Vancomycin Trough ug/mL 08/15/18 Range/Units 11:05 WBC (3.8-10.6) k/uL RBC (3.80-5.40) m/uL Hgb (11.4-16.0) gm/dL MCHC (31.0-37.0) g/dL RDW (11.5-15.5) % Plt Count (150-450) k/uL Neutrophils # (Manual) (1.3-7.7) k/uL Metamyelocytes # (Man) (0) k/uL Myelocytes # (Manual) (0) k/uL Nucleated RBCs (0-0) /100 WBC ABG pH (7.35-7.45) ABG pCO2 (35-45) mmHg ABG pO2 (83-108) mmHg ABG HCO3 (21-25) mmol/L ABG Total CO2 (19-24) mmol/L ABG O2 Saturation (94-97) % Chloride (98-107) mmol/L BUN (7-17) mg/dL Glucose (74-99) mg/dL POC Glucose (mg/dL) 122 H (75-99) mg/dL Calcium (8.4-10.2) mg/dL AST (14-36) U/L Alkaline Phosphatase (38-126) U/L Total Protein (6.3-8.2) g/dL Albumin (3.5-5.0) g/dL Vancomycin Trough ug/mL Microbiology - Last 24 Hours (Table) 08/10/18 18:30 Blood Culture - Preliminary Blood No Growth after 96 hours 08/09/18 16:50 Blood Culture - Preliminary Blood No Growth after 120 hours 08/13/18 14:50 Blood Culture - Preliminary Blood No Growth after 24 hours 08/09/18 16:50 Blood Culture Gram Stain - Final Blood Blood Culture - Final Staphylococcus epidermidis Assessment and Plan Assessment: Impression: Acute hypoxic respiratory failure secondary to ARDS secondary to abdominal sepsis. 2 complicated diverticular abscess with bowel perforation, status post exploratory laparotomy and sigmoid colectomy and ostomy appendectomy postoperative day #16 3 status post repeat exploratory laparotomy and small bowel resection and abscess drainage and diverting ileostomy postoperative day #7 4 acute septic shock secondary to intra-abdominal abscess 5 excessive volume overload and hypoalbuminemia contributing to significant swelling and third spacing with significant bipedal edema. Patient was given Lasix last night, and she'll be given more Lasix today. 6 open wound/abdominal wound with necrosis of the wound surfaces status post debridement. 7 extensive subcutaneous emphysema probably from pneumomediastinum and status post horizontal incision made in the skin and fascia to allow drainage of subcutaneous air. Postoperative day #2 8 chronic anemia 9 adrenocortical insufficiency on IV hydrocortisone. We'll cut down the dose to 50 mg IV push every 8 hours. 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 May require surgical resection. 11 status post tracheostomy, postoperative day #1. Recommendation: Continue present supportive care measures, continue ventilatory support, nutritional support,/TPN. Continue GI and DVT prophylaxis. Continue high PEEP at 15 presently FiO2 was cut down to 55%, Clearly the patient is nowhere near any weaning trials. Prognosis is extremely poor, and mortality is going to be extremely high. In the meantime we'll continue present treatment plan including antibiotics, bronchodilators, antifungal therapy, hydrocortisone , diuretics, insulin, address electrolytes accordingly, antibiotics and antifungal as per infectious disease on the case. I updated her yesterday on her condition, and I explained to him clearly that the patient carries a very high mortality, as a matter of fact I believe her mortality is probably over 90% at this point. is very well aware of the poor prognosis, and he continues to insist on full measures, not even ready to consider DO NOT RESUSCITATE CODE STATUS at this point. Again prognosis is extremely poor and guarded, critical care time is 40 minutes. Time with Patient: Greater than 30
[2018-08-15 12:36] LABS: Glucose,Whole Blood 121 mg/dL (75-99)
--- NOTE | 2018-08-15 12:54 | PN ---
PROGRESS NOTE ADDENDUM: This patient had a radial line placed at the time of exploratory laparotomy. MMODL / IJN: [id number] /
[2018-08-15] MEDS: NOREPINEPHRINE 32 MG in SODIUM CHLORIDE 0.9% 250 ML IV SCH (13:43)
[2018-08-15] MEDS: MVI, ADULT NO.4 WITH VIT K 10 ML, TRACE (CONC-1ML/DOSE) 1 ML, POTASSIUM CHLORIDE 40 MEQ... IV SCH ×7 (13:43)
--- NOTE | 2018-08-15 13:54 | P.PN ---
Subjective Progress Note Date: 08/15/18 Principal diagnosis: follow up of diverticular abscess complicated by bowel perf, and ARDS with septic shock patient seen and examined, tolerated procedure yesterday for trach, continues to be on vent support and sedated. Leukocytosis is worse today , no fevers overnight respiratory acidosis this AM, vent settings were adjusted , which later showed some improvement in her ABG patient is deeply sedated. currently off IV pressors. functional ileostomy in place. Objective - Vital Signs Vital signs: Vital Signs Temp 97.5 F L 08/15/18 06:00 Pulse 98 08/15/18 07:46 Resp 23 08/15/18 07:00 BP 97/56 08/14/18 17:00 Pulse Ox 96 08/15/18 07:00 Intake & Output 08/14/18 08/15/18 08/15/18 18:59 06:59 18:59 Intake Total 0070.715 4381.489 1107.233 Output Total 1805 455 105 Balance 148.501 708.628 5591.233 Weight 77.7 kg 75.3 kg Intake: IV 1628.98 1056.92 1077.66 Anidulafungin 100 mg In 100 Sodium Chloride 0.9% 100 ml @ 84 mls/hr IVPB DAILY JESS[facility] Rx#:[id number] Fentanyl 50 60 5 Mvi, Adult No.4 with Vit 450 540 45 K 10 ml Trace (Conc-1Ml/ Dose) 1 ml Parenteral Electrolytes 20 ml Potassium Chloride 20 meq In Amino Acid 5%-D15w 1, 000 ml @ 45 mls/hr IV . Q23H8M [facility] Rx#:[id number] NImbex 13.98 55.92 4.66 Pressure bag 15 36 3 Sodium Chloride 0.45% 1, 200 240 20 000 ml @ 20 mls/hr IV . Q24H JESS[facility] Rx#:[id number] Sodium Chloride 0.9% 1, 1000 000 ml @ 999 mls/hr IV . Q1H1M [facility] Rx#:[id number] potassium chloride 100 zosyn 200 125 Intake, IV Titration 324.521 342.569 29.573 Amount Insulin Regular 100 unit 39.462 60.422 5.088 In Sodium Chloride 0.9% 100 ml @ Per Protocol IV .Q0M [facility] Rx#:[id number] Norepinephrine 32 mg In 22.78 Sodium Chloride 0.9% 218 ml @ 0.05 MCG/KG/MIN 1.82 mls/hr IV .Q24H [facility]ESS[facility] Rx#: [id number] Norepinephrine 32 mg In 6.398 5.493 Sodium Chloride 0.9% 250 ml @ 0.1 MCG/KG/MIN 4.28 mls/hr IV .Q24H [facility] Rx#: [id number] Propofol 1,000 mg In 193.258 209.044 Empty Bag 1 bag @ Titrate IV .Q0M [facility]ESS[facility] Rx#: [id number] fentaNYL (PF) 1,000 mcg 91.801 43.925 18.992 In Sodium Chloride 0.9% 80 ml @ 0.62 MCG/KG/HR 5. 02 mls/hr IV .[id number] [facility] Rx#:[id number] Output: Gastric Drainage 225 Drainage 80 80 Right Abdomen 80 80 Urine 1355 375 25 Stool 200 Estimated Blood Loss 25 Other: Voiding Method Indwelling Catheter Indwelling Catheter ABP, PAP, CO, CI - Last Documented Arterial Blood Pressure 123/59 - Exam Constitutional: Intubated currently on mechanical ventilator, fully sedated and paralyzed. Lungs: audible breath sounds bilaterally, bibasilar crackles, no wheezes Cardiovascular: Heart regular in rate and rhythm, No murmurs, gallops, or rubs , +3 peripheral edema with seeping fluids through skin tears Abdominal: edema of abd wall , functioning colostomy and ileostomy with dark fluid collection in ileostomy, negative bowel sounds Skin: Multiple tears with seepage of serous fluid due to anasarca Extremities: Left thumb violaceously discolored dark with ischemic changes and necrosis. discoloration of the tip of fingers bilaterally Neuro and Psychiatric: unable to assess, patient is sedated - Labs CBC & Chem 7: 08/15/18 03:21 08/15/18 03:21 Labs: Abnormal Lab Results - Last 24 Hours (Table) 08/11/18 08/14/18 08/14/18 Range/Units 04:48 10:11 12:44 WBC (3.8-10.6) k/uL RBC (3.80-5.40) m/uL Hgb (11.4-16.0) gm/dL MCHC (31.0-37.0) g/dL RDW (11.5-15.5) % Plt Count (150-450) k/uL Neutrophils # (Manual) (1.3-7.7) k/uL Metamyelocytes # (Man) (0) k/uL Myelocytes # (Manual) (0) k/uL Nucleated RBCs (0-0) /100 WBC ABG pH (7.35-7.45) ABG pCO2 (35-45) mmHg ABG pO2 (83-108) mmHg ABG HCO3 (21-25) mmol/L ABG Total CO2 (19-24) mmol/L ABG O2 Saturation (94-97) % Chloride (98-107) mmol/L BUN (7-17) mg/dL Glucose (74-99) mg/dL POC Glucose (mg/dL) 143 H 107 H (75-99) mg/dL Calcium (8.4-10.2) mg/dL AST (14-36) U/L Alkaline Phosphatase (38-126) U/L Total Protein (6.3-8.2) g/dL Albumin (3.5-5.0) g/dL Vancomycin Trough 30.4 H* ug/mL 08/14/18 08/14/18 08/14/18 Range/Units 14:40 15:55 17:04 WBC (3.8-10.6) k/uL RBC (3.80-5.40) m/uL Hgb (11.4-16.0) gm/dL MCHC (31.0-37.0) g/dL RDW (11.5-15.5) % Plt Count (150-450) k/uL Neutrophils # (Manual) (1.3-7.7) k/uL Metamyelocytes # (Man) (0) k/uL Myelocytes # (Manual) (0) k/uL Nucleated RBCs (0-0) /100 WBC ABG pH (7.35-7.45) ABG pCO2 (35-45) mmHg ABG pO2 (83-108) mmHg ABG HCO3 (21-25) mmol/L ABG Total CO2 (19-24) mmol/L ABG O2 Saturation (94-97) % Chloride (98-107) mmol/L BUN (7-17) mg/dL Glucose (74-99) mg/dL POC Glucose (mg/dL) 130 H 117 H 171 H (75-99) mg/dL Calcium (8.4-10.2) mg/dL AST (14-36) U/L Alkaline Phosphatase (38-126) U/L Total Protein (6.3-8.2) g/dL Albumin (3.5-5.0) g/dL Vancomycin Trough ug/mL 08/14/18 08/14/18 08/14/18 Range/Units 17:34 19:02 20:19 WBC (3.8-10.6) k/uL RBC (3.80-5.40) m/uL Hgb (11.4-16.0) gm/dL MCHC (31.0-37.0) g/dL RDW (11.5-15.5) % Plt Count (150-450) k/uL Neutrophils # (Manual) (1.3-7.7) k/uL Metamyelocytes # (Man) (0) k/uL Myelocytes # (Manual) (0) k/uL Nucleated RBCs (0-0) /100 WBC ABG pH 7.33 L (7.35-7.45) ABG pCO2 52 H (35-45) mmHg ABG pO2 72 L (83-108) mmHg ABG HCO3 27 H (21-25) mmol/L ABG Total CO2 29 H (19-24) mmol/L ABG O2 Saturation (94-97) % Chloride (98-107) mmol/L BUN (7-17) mg/dL Glucose (74-99) mg/dL POC Glucose (mg/dL) 158 H 191 H (75-99) mg/dL Calcium (8.4-10.2) mg/dL AST (14-36) U/L Alkaline Phosphatase (38-126) U/L Total Protein (6.3-8.2) g/dL Albumin (3.5-5.0) g/dL Vancomycin Trough ug/mL 08/14/18 08/14/18 08/14/18 Range/Units 21:24 22:03 23:15 WBC (3.8-10.6) k/uL RBC (3.80-5.40) m/uL Hgb (11.4-16.0) gm/dL MCHC (31.0-37.0) g/dL RDW (11.5-15.5) % Plt Count (150-450) k/uL Neutrophils # (Manual) (1.3-7.7) k/uL Metamyelocytes # (Man) (0) k/uL Myelocytes # (Manual) (0) k/uL Nucleated RBCs (0-0) /100 WBC ABG pH (7.35-7.45) ABG pCO2 (35-45) mmHg ABG pO2 (83-108) mmHg ABG HCO3 (21-25) mmol/L ABG Total CO2 (19-24) mmol/L ABG O2 Saturation (94-97) % Chloride (98-107) mmol/L BUN (7-17) mg/dL Glucose (74-99) mg/dL POC Glucose (mg/dL) 219 H 221 H 211 H (75-99) mg/dL Calcium (8.4-10.2) mg/dL AST (14-36) U/L Alkaline Phosphatase (38-126) U/L Total Protein (6.3-8.2) g/dL Albumin (3.5-5.0) g/dL Vancomycin Trough ug/mL 08/14/18 08/15/18 08/15/18 Range/Units 23:58 01:08 02:04 WBC (3.8-10.6) k/uL RBC (3.80-5.40) m/uL Hgb (11.4-16.0) gm/dL MCHC (31.0-37.0) g/dL RDW (11.5-15.5) % Plt Count (150-450) k/uL Neutrophils # (Manual) (1.3-7.7) k/uL Metamyelocytes # (Man) (0) k/uL Myelocytes # (Manual) (0) k/uL Nucleated RBCs (0-0) /100 WBC ABG pH (7.35-7.45) ABG pCO2 (35-45) mmHg ABG pO2 (83-108) mmHg ABG HCO3 (21-25) mmol/L ABG Total CO2 (19-24) mmol/L ABG O2 Saturation (94-97) % Chloride (98-107) mmol/L BUN (7-17) mg/dL Glucose (74-99) mg/dL POC Glucose (mg/dL) 196 H 209 H 159 H (75-99) mg/dL Calcium (8.4-10.2) mg/dL AST (14-36) U/L Alkaline Phosphatase (38-126) U/L Total Protein (6.3-8.2) g/dL Albumin (3.5-5.0) g/dL Vancomycin Trough ug/mL 08/15/18 08/15/18 08/15/18 Range/Units 03:21 03:21 03:21 WBC 23.5 H (3.8-10.6) k/uL RBC 3.55 L (3.80-5.40) m/uL Hgb 10.0 L (11.4-16.0) gm/dL MCHC 28.8 L (31.0-37.0) g/dL RDW 19.0 H (11.5-15.5) % Plt Count 118 L D (150-450) k/uL Neutrophils # (Manual) 21.80 H (1.3-7.7) k/uL Metamyelocytes # (Man) 0.24 H (0) k/uL Myelocytes # (Manual) 0.24 H (0) k/uL Nucleated RBCs 2 H (0-0) /100 WBC ABG pH (7.35-7.45) ABG pCO2 (35-45) mmHg ABG pO2 (83-108) mmHg ABG HCO3 (21-25) mmol/L ABG Total CO2 (19-24) mmol/L ABG O2 Saturation (94-97) % Chloride 111 H (98-107) mmol/L BUN 48 H (7-17) mg/dL Glucose 156 H (74-99) mg/dL POC Glucose (mg/dL) (75-99) mg/dL Calcium 8.2 L (8.4-10.2) mg/dL AST 38 H (14-36) U/L Alkaline Phosphatase 209 H (38-126) U/L Total Protein 4.7 L (6.3-8.2) g/dL Albumin 1.9 L (3.5-5.0) g/dL Vancomycin Trough 31.5 H* ug/mL 08/15/18 08/15/18 08/15/18 Range/Units 03:24 05:25 06:04 WBC (3.8-10.6) k/uL RBC (3.80-5.40) m/uL Hgb (11.4-16.0) gm/dL MCHC (31.0-37.0) g/dL RDW (11.5-15.5) % Plt Count (150-450) k/uL Neutrophils # (Manual) (1.3-7.7) k/uL Metamyelocytes # (Man) (0) k/uL Myelocytes # (Manual) (0) k/uL Nucleated RBCs (0-0) /100 WBC ABG pH (7.35-7.45) ABG pCO2 (35-45) mmHg ABG pO2 (83-108) mmHg ABG HCO3 (21-25) mmol/L ABG Total CO2 (19-24) mmol/L ABG O2 Saturation (94-97) % Chloride (98-107) mmol/L BUN (7-17) mg/dL Glucose (74-99) mg/dL POC Glucose (mg/dL) 199 H 142 H 163 H (75-99) mg/dL Calcium (8.4-10.2) mg/dL AST (14-36) U/L Alkaline Phosphatase (38-126) U/L Total Protein (6.3-8.2) g/dL Albumin (3.5-5.0) g/dL Vancomycin Trough ug/mL 08/15/18 08/15/18 Range/Units 07:02 07:28 WBC (3.8-10.6) k/uL RBC (3.80-5.40) m/uL Hgb (11.4-16.0) gm/dL MCHC (31.0-37.0) g/dL RDW (11.5-15.5) % Plt Count (150-450) k/uL Neutrophils # (Manual) (1.3-7.7) k/uL Metamyelocytes # (Man) (0) k/uL Myelocytes # (Manual) (0) k/uL Nucleated RBCs (0-0) /100 WBC ABG pH 7.06 L* (7.35-7.45) ABG pCO2 90 H* (35-45) mmHg ABG pO2 198 H (83-108) mmHg ABG HCO3 (21-25) mmol/L ABG Total CO2 28 H (19-24) mmol/L ABG O2 Saturation 99.2 H (94-97) % Chloride (98-107) mmol/L BUN (7-17) mg/dL Glucose (74-99) mg/dL POC Glucose (mg/dL) 126 H (75-99) mg/dL Calcium (8.4-10.2) mg/dL AST (14-36) U/L Alkaline Phosphatase (38-126) U/L Total Protein (6.3-8.2) g/dL Albumin (3.5-5.0) g/dL Vancomycin Trough ug/mL Microbiology - Last 24 Hours (Table) 08/10/18 18:30 Blood Culture - Preliminary Blood No Growth after 96 hours 08/09/18 16:50 Blood Culture - Preliminary Blood No Growth after 120 hours 08/13/18 14:50 Blood Culture - Preliminary Blood No Growth after 24 hours 08/09/18 16:50 Blood Culture Gram Stain - Final Blood Blood Culture - Final Staphylococcus epidermidis Assessment and Plan Assessment: Patient is a 58-year-old female with no significant past medical history who presented to the emergency department at the recommendations of her PCP for dehydration, nausea, and vomiting. In the emergency department she underwent an extensive evaluation. Computed tomography scan of the abdomen showed diverticular abscess with partial bowel obstruction she was admitted for further management. She was started on IV fluids, antibiotics and was admitted. General surgery was consulted. Patient initially wanted conservative management did not want surgery. Interventional radiology was consulted and she underwent abscess ranges placement of percutaneous drain on . She was found to have an elevated PTT and hematology was consulted. They felt that this was likely due to poor nutritional intake and ordered additional vitamin K. Her PT INR normalized with additional vitamin K. She was seen by ID to assist with antibiotics management . She had initially been progressing well. Overnight on 07/29 she developed increasing pain and nausea. She started requiring IV narcotics for treatment of her pain. She then became tachycardic. Morning blood work on 07/30 showed a depressed white blood cell count at 2.5, and carbon dioxide of 12. Stat CT with IV contrast as well as a stat lactic acid and a [address] abdomen and pelvis showed free air. Case discussed with Dr. Jacobson and patient was taken urgently to the operating room for ex-lap due to perforated viscus. During the procedure, the patient was noted to have fecal peritonitis and underwent a sigmoid colectomy with end colostomy. She was transferred to the ICU post-operatively and was started on IV pressors. The patient was extubated on 07/31/18. However, she continued to require Levophed. ID recommended the patient to be switched to Unasyn and Flagyl. patient was started on hydrocortisone for suspected adrenal insufficiency. On 08/02 the patient developed respiratory distress and was re- intubated. She was also noted to have L thumb discoloration with history of art line placement on that wrist. Vascular surgery was consulted and did not recommend urgent surgical intervention. Her pressors were able to taken off momentarily on 08/06 but required to be restarted on 08/07. She had a dusky appearance to the wound edges and was taken back to the OR on 08/09 and underwent small bowel resection with abdominal wound debridement. on 08/14 Patient with facial swelling subcutaneous emphysema and anasarca. patient underwent tracheostomy and to re-debridement abdominal wound which she tolerated well, now patient requiring deep sedation and paralytics to achieve good oxygenation and washing CO2 out. Plan: Respiratory Acute hypoxic respiratory failure secondary to ARDS secondary to abdominal sepsis Vent support, status post tracheostomy, currently deeply sedated and paralyzed Follow-up ABGs Cardiovascular Patient off and on IV pressors as needed Left thumb ischemia with evidence of poor circulation to both bilateral fingers vascular surgery following Infectious Septic shock from abdominal source due to bowel perforation and peritonitis has competitions of diverticular abscess( Diverticulitis with abscess and bowel perforation with septic shock s/p sigmoid colectomy, small bowel resection X 2 and appendectomy and debridement of wound necrosis ) Continue patient on broad-spectrum antibiotics per ID recommendations vancomycin and zosyn and Eraxis Echocardiogram showed hyperdynamic left ventricular function s/p re-debridement of the necrosis of the borders of the wound, Gen. surgery following on hydrocortison, today dose was decreased Metabolic Follow-up electrolytes replace as needed Diffuse generalized anasarca due to hypoalbuminemia and third spacing of fluids Transaminitis likely due to TPN and hypoperfusion from shock liver , follow liver enzymes Hyperglycemia , continue with insulin gtt Hematologic Anemia, hemoglobin stable now Elevated white count and thrombocytopenia now improving (HIT ab negative) GI Post-op ileus on TPN NGT to suction general surgery recs Vascular Left thumb ischemia secondary to radial artery occlusion - vascular surgery recs appreciated, conservative management at this time. - heparin gtt held per surgery DVT prophylaxis: Heparin held by general surgery Anticipated discharge: undetermined Place:[facility] poor
[2018-08-15 14:08] LABS: Glucose,Whole Blood 108 mg/dL (75-99)
[2018-08-15] MEDS: NOREPINEPHRINE 32 MG in SODIUM CHLORIDE 0.9% 218 ML IV SCH (15:23)
[2018-08-15 16:18] LABS: Glucose,Whole Blood 135 mg/dL (75-99)
[2018-08-15 18:14] LABS: Glucose,Whole Blood 149 mg/dL (75-99)
[2018-08-15 19:28] LABS: Glucose,Whole Blood 172 mg/dL (75-99)
[2018-08-15 20:43] LABS: Glucose,Whole Blood 188 mg/dL (75-99)
[2018-08-15 21:42] LABS: Glucose,Whole Blood 168 mg/dL (75-99)
--- NOTE | 2018-08-15 22:44 | PN ---
PROGRESS NOTE DATE OF SERVICE: 08/15/2018 REASON FOR FOLLOWUP: Abdominal sepsis. INTERVAL HISTORY: The patient is currently afebrile. The patient continues to be intubated through a trach. Still remains lethargic. Did not open her eyes or follow commands. No nausea or any significant output in her ileostomy bag. PHYSICAL EXAMINATION: Blood pressure is 101/49 with a pulse of 100, temperature 98. She is 90% on 50% FiO2. General description is a middle-aged female lying in bed in no distress. RESPIRATORY SYSTEM: Unlabored breathing with decreased breath sounds at the base. No wheeze. HEART: S1, S2. Regular rate and rhythm. ABDOMEN: Currently . No significant output in the ileostomy bag. EXTREMITIES: Three plus edema of feet. LABS: Hemoglobin is 10, white count 23.5. BUN 48, creatinine 0.75. DIAGNOSTIC IMPRESSION AND PLAN: Patient with abdominal sepsis in this patient who required multiple surgery for her perforated diverticulitis with persistent respiratory failure requiring a tracheostomy. The patient's overall prognosis remains guarded. Currently covered with vancomycin and Zosyn to continue for now. Family was present at the bedside. Their questions were answered. MMODL / IJN: [id number] /
[2018-08-15] MEDS ORDERED: FUROSEMIDE 10 MG/ML 4 ML VIAL IV STA (23:41)
[2018-08-16 00:09] LABS: Glucose,Whole Blood 127 mg/dL (75-99)
[2018-08-16 01:41] LABS: Glucose,Whole Blood 102 mg/dL (75-99)
[2018-08-16] MEDS: fentaNYL (PF) 1,000 MCG in SODIUM CHLORIDE 0.9% 80 ML IV SCH ×2 (01:58→22:00)
[2018-08-16 03:09] LABS: Glucose,Whole Blood 91 mg/dL (75-99)
[2018-08-16] MEDS: PROPOFOL 1,000 MG in EMPTY BAG 1 BAG IV SCH ×5 (03:15→21:00)
[2018-08-16 04:05] LABS: Glucose,Whole Blood 162 mg/dL (75-99)
[2018-08-16 04:05] LABS: Glucose,Whole Blood 165 mg/dL (75-99)
[2018-08-16 04:22] LABS: Anisocytosis Slight; HCT 28.3 % (34.0-46.0); Hypochromasia Marked; MCH 28.6 pg (25.0-35.0); MCV 98.3 fL (80.0-100.0); Macrocytosis Slight; Mean Platelet Volume 10.6; Poikilocytosis Moderate; RBC 2.88 m/uL (3.80-5.40); RDW 19.4 % (11.5-15.5)
[2018-08-16 04:25] LABS: HGB 8.2 gm/dL (11.4-16.0)
[2018-08-16 04:34] LABS: Calcium 8.2 mg/dL (8.4-10.2); Magnesium 2.2 mg/dL (1.6-2.3); Phosphorus 4.4 mg/dL (2.5-4.5); Potassium 5.5 mmol/L (3.5-5.1); Total Protein 4.8 g/dL (6.3-8.2)
[2018-08-16 05:12] LABS: Eosinophils # (M) 0.19 k/uL (0-0.7); Lymphocytes # (M) 0.94 k/uL (1.0-4.8); Monocytes # (M) 0.19 k/uL (0-1.0); Myelocytes # (M) 1.12 k/uL (0); Myelocytes % 6 %; Neutrophils # (M) 16.27 k/uL (1.3-7.7); Neutrophils % (M) 87 %; Nucleated Red Blood Cells 2 /100 WBC (0-0); Platelet Count 74 k/uL (150-450); Total Cells Counted 200; WBC 18.7 k/uL (3.8-10.6)
[2018-08-16 05:13] LABS: Basophilic Stippling Present; Polychromasia Present
[2018-08-16 05:29] LABS: Glucose,Whole Blood 74 mg/dL (75-99)
[2018-08-16 06:18] LABS: Glucose,Whole Blood 82 mg/dL (75-99)
[2018-08-16] MEDS: METOCLOPRAMIDE 5 MG/ML 2 ML VIAL IVP SCH ×3 (06:47→18:24)
[2018-08-16] MEDS ORDERED: DEXTROSE 50%-WATER 50 ML SYRINGE IVP STA (07:03)
[2018-08-16] MEDS ORDERED: DEXTROSE 50%-WATER 50 ML SYRINGE IVP ONE (07:05)
[2018-08-16 07:21] LABS: Glucose,Whole Blood 70 mg/dL (75-99)
[2018-08-16 07:24] LABS: Glucose,Whole Blood 83 mg/dL (75-99)
[2018-08-16 07:36] LABS: ABG Base Excess -6.7 mmol/L; ABG HCO3 21 mmol/L (21-25); ABG Oxygen Saturation 91.9 % (94-97); ABG PCO2 56 mmHg (35-45); ABG PO2 64 mmHg (83-108); ABG TCO2 23 mmol/L (19-24)
[2018-08-16 07:39] LABS: ABG PH 7.19 (7.35-7.45)
--- NOTE | 2018-08-16 07:39 | XR ---
EXAMINATION TYPE: XR chest 1V portable DATE OF EXAM: 08/16/2018 COMPARISON: NONE HISTORY: SOB, Follow Up FINDINGS: Indwelling tubes and catheters are unchanged. Increasing subcutaneous emphysema. Sizable pneumothorax not identified with absolute certainty. No change in diffuse airspace infiltrates. Stable appearance of the cardio-mediastinal structures at this time. Pleural effusion unchanged. IMPRESSION: 1. Diffuse airspace infiltrates persist unchanged. Increasing subcutaneous emphysema. Clinical correl ation and follow up until resolution is recommended.
[2018-08-16] MEDS: IPRATROPIUM-ALBUTEROL 3 ML NEB INHALATION SCH ×4 (07:40→20:48)
[2018-08-16 08:22] LABS: Glucose,Whole Blood 209 mg/dL (75-99)
[2018-08-16 09:13] LABS: Glucose,Whole Blood 193 mg/dL (75-99)
[2018-08-16] MEDS: PIPERACILLIN-TAZOBACTAM 3.375 GM in SODIUM CHLORIDE 0.9% 100 ML IVPB SCH ×2 (09:14→16:42)
[2018-08-16] MEDS: HYDROCORTISONE SUCCINATE 100 MG/2 ML VIAL IV SCH ×2 (09:14→17:26)
[2018-08-16] MEDS: ANIDULAFUNGIN 100 MG in SODIUM CHLORIDE 0.9% 100 ML IVPB SCH (09:15)
[2018-08-16] MEDS: LACTATED RINGERS 1,000 ML IV SCH ×8 (09:15→17:21)
[2018-08-16] MEDS: CHLORHEXIDINE GLUCONATE 15 ML CUP MUCOUS MEM SCH ×2 (09:15→20:01)
[2018-08-16] MEDS: PANTOPRAZOLE 40 MG/10 ML VIAL IVP SCH (09:16)
[2018-08-16] MEDS: FUROSEMIDE 10 MG/ML 4 ML VIAL IV SCH (09:18)
--- NOTE | 2018-08-16 09:49 | P.PN ---
Subjective Progress Note Date: 08/16/18 CHIEF COMPLAINT: Abdominal pain HISTORY OF PRESENT ILLNESS: Patient examined at the bedside. patient s/p trach and wound debridement. POD #2. Patient remains sedated on mechanical ventilation. PHYSICAL EXAM: VITAL SIGNS: Currently stable. GENERAL: Sedated on ventilator. HEENT: Trach noted. OG tube noted. No sclera icterus. Extraocular movements grossly intact. Dry mucusa with old bloody drainage noted. Head is normocephalic. No nasal drainage. NECK: Supple without lymphadenopathy. CHEST: Equal bilateral excursions. Currently vented. CARDIOVASCULAR: Regular rate with regular rhythm. ABDOMEN: Distended. Ostomy x 2 with serous drainage on left. Dark brown/black drainage on right. Abdominal dressing CDI. NEUROLOGIC: Unable to assess secondary to intubation PSYCH: Unable to assess secondary to intubation ASSESSMENT: 1. Small bowel obstruction with perforated sigmoid colon and fecal peritonitis 2. Status post sigmoid colectomy with end colostomy, takedown of splenic flexure, small bowel resection 2, and appendectomy 3. Postoperative ileus 4. S/P repeat exploratory laparotomy and small bowel resection and abscess drainage and diverting ileostomy 5. S/P tracheostomy PLAN: 1. ICU management per liner installer. 2. Continue TPN 3. Daily wet to dry dressing changes of abdominal wound 4. Patients prognosis is extremely poor. No further wound debridements or surgical procedures will be performed per surgical services. Nurse practitioner note has been reviewed by physician. Signing provider agrees with the documented findings, assessment, and plan of care. Objective - Vital Signs Vital signs: Vital Signs Temp 98.4 F 08/16/18 08:00 Pulse 105 H 08/16/18 09:00 Resp 36 H 08/16/18 09:00 BP 97/56 08/14/18 17:00 Pulse Ox 92 L 08/16/18 09:00 Intake & Output 08/15/18 08/16/18 08/16/18 18:59 06:59 18:59 Intake Total 2980.650 0005.282 9246.843 Output Total 550 138 25 Balance 2430.650 7905.496 9744.843 Weight 75.3 kg Intake: IV 1610.66 871 389 Anidulafungin 100 mg In 100 130 Sodium Chloride 0.9% 100 ml @ 84 mls/hr IVPB DAILY [facility] Rx#:[id number] Fentanyl 5 Mvi, Adult No.4 with Vit 45 K 10 ml Trace (Conc-1Ml/ Dose) 1 ml Parenteral Electrolytes 20 ml Potassium Chloride 20 meq In Amino Acid 5%-D15w 1, 000 ml @ 45 mls/hr IV . Q23H8M [facility] Rx#:[id number] Mvi, Adult No.4 with Vit 495 90 K 10 ml Trace (Conc-1Ml/ Dose) 1 ml Potassium Chloride 40 meq Calcium Gluconate 1 gm Magnesium Sulfate gm 0.5 gm Potassium Acetate 10 meq In Amino Acid 5%-D15w 1, 000 ml @ 45 mls/hr IV . [id number] [facility] Rx#:[id number] NImbex 4.66 Piperacillin-Tazobactam 3 200 100 100 .375 gm In Sodium Chloride 0.9% 100 ml @ 25 mls/hr IVPB Q8HR [facility] Rx# :[id number] Pressure bag 36 36 9 Sodium Chloride 0.45% 1, 220 240 60 000 ml @ 20 mls/hr IV . Q24H [facility] Rx#:[id number] Sodium Chloride 0.9% 1, 1000 000 ml @ 999 mls/hr IV . Q1H1M [facility] Rx#:[id number] Intake, IV Titration 1369.990 203.449 2186.843 Amount Cisatracurium 200 mg In 101.743 59.493 40.697 Sodium Chloride 0.9% 180 ml @ 1 MCG/KG/MIN 4.66 mls/hr IV .Q24H [facility] Rx#: [id number] Insulin Regular 100 unit 5.088 32.756 18.058 In Sodium Chloride 0.9% 100 ml @ Per Protocol IV .Q0M [facility] Rx#:[id number] Lactated Ringers 1,000 ml 1000 @ 999 mls/hr IV .Q1H1M [facility] Rx#:[id number] Mvi, Adult No.4 with Vit 1020 K 10 ml Trace (Conc-1Ml/ Dose) 1 ml Potassium Chloride 40 meq Calcium Gluconate 1 gm Magnesium Sulfate gm 0.5 gm Potassium Acetate 10 meq In Amino Acid 5%-D15w 1, 000 ml @ 45 mls/hr IV . [id number] [facility] Rx#:[id number] Norepinephrine 32 mg In 13.915 63.790 5.088 Sodium Chloride 0.9% 250 ml @ 0.1 MCG/KG/MIN 4.28 mls/hr IV .Q24H [facility] Rx#: [id number] Propofol 1,000 mg In 186.365 185.089 100 Empty Bag 1 bag @ Titrate IV .Q0M [facility] Rx#: [id number] fentaNYL (PF) 1,000 mcg 42.879 38.905 In Sodium Chloride 0.9% 80 ml @ 0.62 MCG/KG/HR 5. 02 mls/hr IV .[id number] [facility] Rx#:[id number] Output: Drainage 130 Right Abdomen 130 Urine 320 138 25 Stool 100 Other: Voiding Method Indwelling Catheter Indwelling Catheter ABP, PAP, CO, CI - Last Documented Arterial Blood Pressure 121/42 - Labs CBC & Chem 7: 08/16/18 04:09 08/16/18 04:09 Labs: Abnormal Lab Results - Last 24 Hours (Table) 08/15/18 08/15/18 08/15/18 Range/Units 11:05 12:10 14:04 WBC (3.8-10.6) k/uL RBC (3.80-5.40) m/uL Hgb (11.4-16.0) gm/dL Hct (34.0-46.0) % MCHC (31.0-37.0) g/dL RDW (11.5-15.5) % Plt Count (150-450) k/uL Neutrophils # (Manual) (1.3-7.7) k/uL Lymphocytes # (Manual) (1.0-4.8) k/uL Myelocytes # (Manual) (0) k/uL Nucleated RBCs (0-0) /100 WBC ABG pH (7.35-7.45) ABG pCO2 (35-45) mmHg ABG pO2 (83-108) mmHg ABG O2 Saturation (94-97) % Potassium (3.5-5.1) mmol/L Chloride (98-107) mmol/L Carbon Dioxide (22-30) mmol/L BUN (7-17) mg/dL Creatinine (0.52-1.04) mg/dL Glucose (74-99) mg/dL POC Glucose (mg/dL) 122 H 121 H 108 H (75-99) mg/dL Calcium (8.4-10.2) mg/dL Alkaline Phosphatase (38-126) U/L Total Protein (6.3-8.2) g/dL Albumin (3.5-5.0) g/dL 08/15/18 08/15/18 08/15/18 Range/Units 16:14 18:11 19:03 WBC (3.8-10.6) k/uL RBC (3.80-5.40) m/uL Hgb (11.4-16.0) gm/dL Hct (34.0-46.0) % MCHC (31.0-37.0) g/dL RDW (11.5-15.5) % Plt Count (150-450) k/uL Neutrophils # (Manual) (1.3-7.7) k/uL Lymphocytes # (Manual) (1.0-4.8) k/uL Myelocytes # (Manual) (0) k/uL Nucleated RBCs (0-0) /100 WBC ABG pH (7.35-7.45) ABG pCO2 (35-45) mmHg ABG pO2 (83-108) mmHg ABG O2 Saturation (94-97) % Potassium (3.5-5.1) mmol/L Chloride (98-107) mmol/L Carbon Dioxide (22-30) mmol/L BUN (7-17) mg/dL Creatinine (0.52-1.04) mg/dL Glucose (74-99) mg/dL POC Glucose (mg/dL) 135 H 149 H 172 H (75-99) mg/dL Calcium (8.4-10.2) mg/dL Alkaline Phosphatase (38-126) U/L Total Protein (6.3-8.2) g/dL Albumin (3.5-5.0) g/dL 08/15/18 08/15/18 08/16/18 Range/Units 20:40 21:39 00:07 WBC (3.8-10.6) k/uL RBC (3.80-5.40) m/uL Hgb (11.4-16.0) gm/dL Hct (34.0-46.0) % MCHC (31.0-37.0) g/dL RDW (11.5-15.5) % Plt Count (150-450) k/uL Neutrophils # (Manual) (1.3-7.7) k/uL Lymphocytes # (Manual) (1.0-4.8) k/uL Myelocytes # (Manual) (0) k/uL Nucleated RBCs (0-0) /100 WBC ABG pH (7.35-7.45) ABG pCO2 (35-45) mmHg ABG pO2 (83-108) mmHg ABG O2 Saturation (94-97) % Potassium (3.5-5.1) mmol/L Chloride (98-107) mmol/L Carbon Dioxide (22-30) mmol/L BUN (7-17) mg/dL Creatinine (0.52-1.04) mg/dL Glucose (74-99) mg/dL POC Glucose (mg/dL) 188 H 168 H 127 H (75-99) mg/dL Calcium (8.4-10.2) mg/dL Alkaline Phosphatase (38-126) U/L Total Protein (6.3-8.2) g/dL Albumin (3.5-5.0) g/dL 08/16/18 08/16/18 08/16/18 Range/Units 01:40 04:01 04:02 WBC (3.8-10.6) k/uL RBC (3.80-5.40) m/uL Hgb (11.4-16.0) gm/dL Hct (34.0-46.0) % MCHC (31.0-37.0) g/dL RDW (11.5-15.5) % Plt Count (150-450) k/uL Neutrophils # (Manual) (1.3-7.7) k/uL Lymphocytes # (Manual) (1.0-4.8) k/uL Myelocytes # (Manual) (0) k/uL Nucleated RBCs (0-0) /100 WBC ABG pH (7.35-7.45) ABG pCO2 (35-45) mmHg ABG pO2 (83-108) mmHg ABG O2 Saturation (94-97) % Potassium (3.5-5.1) mmol/L Chloride (98-107) mmol/L Carbon Dioxide (22-30) mmol/L BUN (7-17) mg/dL Creatinine (0.52-1.04) mg/dL Glucose (74-99) mg/dL POC Glucose (mg/dL) 102 H 162 H 165 H (75-99) mg/dL Calcium (8.4-10.2) mg/dL Alkaline Phosphatase (38-126) U/L Total Protein (6.3-8.2) g/dL Albumin (3.5-5.0) g/dL 08/16/18 08/16/18 08/16/18 Range/Units 04:09 04:09 05:14 WBC 18.7 H (3.8-10.6) k/uL RBC 2.88 L (3.80-5.40) m/uL Hgb 8.2 L D (11.4-16.0) gm/dL Hct 28.3 L (34.0-46.0) % MCHC 29.0 L (31.0-37.0) g/dL RDW 19.4 H (11.5-15.5) % Plt Count 74 L (150-450) k/uL Neutrophils # (Manual) 16.27 H (1.3-7.7) k/uL Lymphocytes # (Manual) 0.94 L (1.0-4.8) k/uL Myelocytes # (Manual) 1.12 H (0) k/uL Nucleated RBCs 2 H (0-0) /100 WBC ABG pH (7.35-7.45) ABG pCO2 (35-45) mmHg ABG pO2 (83-108) mmHg ABG O2 Saturation (94-97) % Potassium 5.5 H (3.5-5.1) mmol/L Chloride 111 H (98-107) mmol/L Carbon Dioxide 21 L (22-30) mmol/L BUN 59 H (7-17) mg/dL Creatinine 1.07 H (0.52-1.04) mg/dL Glucose 145 H (74-99) mg/dL POC Glucose (mg/dL) 74 L (75-99) mg/dL Calcium 8.2 L (8.4-10.2) mg/dL Alkaline Phosphatase 162 H (38-126) U/L Total Protein 4.8 L (6.3-8.2) g/dL Albumin 2.0 L (3.5-5.0) g/dL 08/16/18 08/16/18 08/16/18 Range/Units 06:54 07:28 08:19 WBC (3.8-10.6) k/uL RBC (3.80-5.40) m/uL Hgb (11.4-16.0) gm/dL Hct (34.0-46.0) % MCHC (31.0-37.0) g/dL RDW (11.5-15.5) % Plt Count (150-450) k/uL Neutrophils # (Manual) (1.3-7.7) k/uL Lymphocytes # (Manual) (1.0-4.8) k/uL Myelocytes # (Manual) (0) k/uL Nucleated RBCs (0-0) /100 WBC ABG pH 7.19 L* (7.35-7.45) ABG pCO2 56 H (35-45) mmHg ABG pO2 64 L (83-108) mmHg ABG O2 Saturation 91.9 L (94-97) % Potassium (3.5-5.1) mmol/L Chloride (98-107) mmol/L Carbon Dioxide (22-30) mmol/L BUN (7-17) mg/dL Creatinine (0.52-1.04) mg/dL Glucose (74-99) mg/dL POC Glucose (mg/dL) 70 L 209 H (75-99) mg/dL Calcium (8.4-10.2) mg/dL Alkaline Phosphatase (38-126) U/L Total Protein (6.3-8.2) g/dL Albumin (3.5-5.0) g/dL 08/16/18 Range/Units 09:11 WBC (3.8-10.6) k/uL RBC (3.80-5.40) m/uL Hgb (11.4-16.0) gm/dL Hct (34.0-46.0) % MCHC (31.0-37.0) g/dL RDW (11.5-15.5) % Plt Count (150-450) k/uL Neutrophils # (Manual) (1.3-7.7) k/uL Lymphocytes # (Manual) (1.0-4.8) k/uL Myelocytes # (Manual) (0) k/uL Nucleated RBCs (0-0) /100 WBC ABG pH (7.35-7.45) ABG pCO2 (35-45) mmHg ABG pO2 (83-108) mmHg ABG O2 Saturation (94-97) % Potassium (3.5-5.1) mmol/L Chloride (98-107) mmol/L Carbon Dioxide (22-30) mmol/L BUN (7-17) mg/dL Creatinine (0.52-1.04) mg/dL Glucose (74-99) mg/dL POC Glucose (mg/dL) 193 H (75-99) mg/dL Calcium (8.4-10.2) mg/dL Alkaline Phosphatase (38-126) U/L Total Protein (6.3-8.2) g/dL Albumin (3.5-5.0) g/dL Microbiology - Last 24 Hours (Table) 08/10/18 18:30 Blood Culture - Preliminary Blood No Growth after 120 hours 08/09/18 16:50 Blood Culture - Final Blood No Growth after 144 hours 08/13/18 14:50 Blood Culture - Preliminary Blood No Growth after 48 hours Assessment and Plan (1) Abdominal pain Current Visit: Yes Status: Acute Code(s): R10.9 - UNSPECIFIED ABDOMINAL PAIN SNOMED Code(s): 44491512 (2) Decreased oral intake Current Visit: Yes Status: Acute Code(s): R63.8 - OTHER SYMPTOMS AND SIGNS CONCERNING FOOD AND FLUID INTAKE SNOMED Code(s): 451995838 (3) Colonic diverticular abscess Current Visit: Yes Status: Acute Code(s): K57.20 - DVTRCLI OF LG INT W PERFORATION AND ABSCESS W/O BLEEDING SNOMED Code(s): 184309612 (4) Partial bowel obstruction Current Visit: Yes Status: Acute Code(s): K56.600 - PARTIAL INTESTINAL OBSTRUCTION, UNSPECIFIED TO CAUSE SNOMED Code(s): 28992432
[2018-08-16 10:31] LABS: Glucose,Whole Blood 181 mg/dL (75-99)
[2018-08-16] MEDS: [UNRECOGNIZED DRUG - REMARK] IV SCH ×6 (11:00)
[2018-08-16 11:17] LABS: Glucose,Whole Blood 162 mg/dL (75-99)
--- NOTE | 2018-08-16 11:20 | P.PN ---
Subjective Progress Note Date: 08/16/18 Principal diagnosis: Acute hypoxic respiratory failure secondary to ARDS, and abdominal sepsis. Patient was reevaluated today on 08/14/2018, remains on mechanical ventilation, she remains on relatively high PEEP of 12, and high FiO2 of 65% with marginal O2 saturation. O2 saturation was 93% at best. ABG could not be done this morning, the right radial arterial line was nonfunctional and it was removed. And she had issues related to her left radial arterial line which was discontinued because of ischemic changes of the left thumb. Patient remains on assist control rate of 30 tidal volume of 350 PEEP of 12 and FiO2 of 65%. Remains on fentanyl roughly about 50 mcg/m, insulin drip at 4.5 units per hour, and propofol drip at 40 mcg/kg/m. Considering the patient is still requiring high FiO2 and high PEEP, and she seems to be a bit tachypneic, I went ahead and recommended that the patient gets to be placed on Nimbex. She is scheduled to undergo tracheostomy today. Chest x-ray showed significant bilateral interstitial changes consistent with ARDS, significant subcutaneous emphysema is noted, no evidence of pneumothorax, and no evidence of pneumomediastinum. Fortunately, the patient is not requiring any pressors at this point. Urine output seems to be adequate, the pressure is adequate. She does have a net positive fluid balance. There is however significant amount of seepage noted from the skin surfaces specially skin of lower extremities. Colostomy is nonfunctional ileostomy is functioning. Patient remains on TPN. Necrotic left stump remains about the same. Patient was reevaluated today on 08/15/2018, she underwent tracheostomy yesterday. Postoperative ABG was poor, hence she was placed back on 100% FiO2 overnight, PEEP remains at 12, her gases this morning showed significant improvement, hence I was able to cut down the FiO2 to 55%, and I increased the PEEP to 15. Follow-up ABG this morning showed a pO2 of 98, pCO2 of 74 pH of 7.13. CBC is showing leukocytosis again with WBC count of 23.5, hemoglobin is 10. Platelets are 118,000. Basic metabolic profile is normal, renal profile showed a BUN of 48 creatinine of 0.75. Patient is now on multiple drips including propofol, 40 mcg/kg/m, fentanyl at 25 mcg/h, norepinephrine at 3.5 mcg /m. She is also on Nimbex drip. Titrated as per protocol. Her ventilator settings this morning were adjusted, she is presently on assist control rate of 56. Tidal volume of 350, FiO2 is 55%, and PEEP is 15. Chest x-ray continues to show diffuse bilateral interstitial infiltrates and airspace disease. No evidence of pneumothorax, and no evidence of pneumomediastinum. Recent blood cultures from 08/13/2018 remain negative. And urine cultures have been negative since 08/09/2018. Patient remains on DuoNeb updrafts,anidulafungin, Solu-Cortef which I will cut down to 50 mg every 8 hours, Zosyn, and vancomycin. Patient was reevaluated in the ICU again today on 08/16/2018. Patient remains on mechanical ventilation via tracheostomy. Remains on the same ventilator settings which are FiO2 of 50%, tidal volume of 350 assist-control rate is 36 PEEP remains high at 15. ABG this morning was marginal pO2 was noted to be 64 pCO2 is 56 pH of 7.19. Patient remains on multiple drips including propofol at 50 mcg/kg/m, Nimbex 1 mcg/kg/m which I plan to hold today fentanyl at 0.67 mcg/ kg/h and she is on norepinephrine at 0.08 mcg/kg/m. Urine output is marginal at best, patient is quite swollen and edematous, but I believe she is intravascularly depleted. Did not respond to albumin infusions followed by Lasix yesterday, hence I will give the patient fluids today, and hopefully will improve her urine output and bit more. May even consider a sodium bicarb drip, although the acidosis is mostly respiratory in nature, does have some metabolic component and that is believed to be related to her sepsis and hypoperfusion. Chest x-ray is basically the same continues to show bilateral infiltrates consistent with ARDS. Airway mechanics were reviewed, her peak airway pressure is in the low 40s, and her plateau pressures are in the range of 33-36. Patient remains sedated and paralyzed. I'm hoping I could get her off the Nimbex today, but considering patient is still requiring high PEEP, may not be able to tolerate coming off Nimbex easily. Patient remains on broad-spectrum antibiotics as per infectious disease on the case. All meds were reviewed, chest x-ray was reviewed as noted above. And labs were all reviewed and as noted above. Objective - Vital Signs Vital signs: Vital Signs Temp 98.4 F 08/16/18 08:00 Pulse 103 H 08/16/18 10:00 Resp 36 H 08/16/18 10:00 BP 97/56 08/14/18 17:00 Pulse Ox 91 L 08/16/18 10:00 Intake & Output 08/15/18 08/16/18 08/16/18 18:59 06:59 18:59 Intake Total 2980.650 4490.536 6240.943 Output Total 550 138 40 Balance 2430.650 8290.298 0609.943 Weight 75.3 kg Intake: IV 1610.66 871 412 Anidulafungin 100 mg In 100 130 Sodium Chloride 0.9% 100 ml @ 84 mls/hr IVPB DAILY [facility] Rx#:[id number] Fentanyl 5 Mvi, Adult No.4 with Vit 45 K 10 ml Trace (Conc-1Ml/ Dose) 1 ml Parenteral Electrolytes 20 ml Potassium Chloride 20 meq In Amino Acid 5%-D15w 1, 000 ml @ 45 mls/hr IV . Q23H8M [facility] Rx#:[id number] Mvi, Adult No.4 with Vit 495 90 K 10 ml Trace (Conc-1Ml/ Dose) 1 ml Potassium Chloride 40 meq Calcium Gluconate 1 gm Magnesium Sulfate gm 0.5 gm Potassium Acetate 10 meq In Amino Acid 5%-D15w 1, 000 ml @ 45 mls/hr IV . [id number] [facility] Rx#:[id number] NImbex 4.66 Piperacillin-Tazobactam 3 200 100 100 .375 gm In Sodium Chloride 0.9% 100 ml @ 25 mls/hr IVPB Q8HR [facility] Rx# :[id number] Pressure bag 36 36 12 Sodium Chloride 0.45% 1, 220 240 80 000 ml @ 20 mls/hr IV . Q24H [facility] Rx#:[id number] Sodium Chloride 0.9% 1, 1000 000 ml @ 999 mls/hr IV . Q1H1M [facility] Rx#:[id number] Intake, IV Titration 1369.990 166.215 3542.943 Amount Cisatracurium 200 mg In 101.743 59.493 40.697 Sodium Chloride 0.9% 180 ml @ 1 MCG/KG/MIN 4.66 mls/hr IV .Q24H [facility] Rx#: [id number] Insulin Regular 100 unit 5.088 32.756 22.158 In Sodium Chloride 0.9% 100 ml @ Per Protocol IV .Q0M [facility] Rx#:[id number] Lactated Ringers 1,000 ml 1000 @ 999 mls/hr IV .Q1H1M [facility] Rx#:[id number] Mvi, Adult No.4 with Vit 1020 K 10 ml Trace (Conc-1Ml/ Dose) 1 ml Potassium Chloride 40 meq Calcium Gluconate 1 gm Magnesium Sulfate gm 0.5 gm Potassium Acetate 10 meq In Amino Acid 5%-D15w 1, 000 ml @ 45 mls/hr IV . [id number] [facility] Rx#:[id number] Norepinephrine 32 mg In 13.915 63.790 5.088 Sodium Chloride 0.9% 250 ml @ 0.1 MCG/KG/MIN 4.28 mls/hr IV .Q24H [facility] Rx#: [id number] Propofol 1,000 mg In 186.365 185.089 100 Empty Bag 1 bag @ Titrate IV .Q0M [facility] Rx#: [id number] fentaNYL (PF) 1,000 mcg 42.879 38.905 In Sodium Chloride 0.9% 80 ml @ 0.62 MCG/KG/HR 5. 02 mls/hr IV .[id number] [facility] Rx#:[id number] Output: Drainage 130 Right Abdomen 130 Urine 320 138 40 Stool 100 Other: Voiding Method Indwelling Catheter Indwelling Catheter Indwelling Catheter ABP, PAP, CO, CI - Last Documented Arterial Blood Pressure 103/32 - Exam Physical Exam: Revealed a 58-year-old female on mechanical ventilation, fully sedated and paralyzed. Head: Atraumatic, normocephalic. Some subcutaneous emphysema was palpable mostly in the upper chest area. HEENT:[Neck is supple.] [No neck masses.] [No thyromegaly.] [No JVD.] PERRLA, EOMI, no icterus. Dry mucous membranes were noted. Minimal bleeding and oozing noted from the oral mucosa and lips. Chest: Good breath sound bilaterally, no crackles or rhonchi or wheezes. symmetrical chest expansion was noted. Cardiac Exam: [Normal S1 and S2, no S3 gallop, no murmur.] Abdomen: [Abdominal wound, remains open, colostomy and ileostomy tubes were noted. Dark material noted in both legs. Abdominal wall is swollen and edematous. Bowel sounds are hypoactive. Necrosis of the subcutaneous tissue along the wound borders noted bilaterally. Neurological Exam: Cannot be assessed sedated and paralyzed. Psychiatric: Cannot be assessed. Skin/extremities. Evidence of poor perfusion to the tips of the fingers in both hands however more pronounced in the left thumb area with ischemic changes and necrosis. Tips of the other fingers in the right hand are also noted to show some dark discoloration at the tips mostly. And significant edema noted in lower extremity is, and serous seepage is noted. - Labs CBC & Chem 7: 08/16/18 04:09 08/16/18 04:09 Labs: Abnormal Lab Results - Last 24 Hours (Table) 08/15/18 08/15/18 08/15/18 Range/Units 12:10 14:04 16:14 WBC (3.8-10.6) k/uL RBC (3.80-5.40) m/uL Hgb (11.4-16.0) gm/dL Hct (34.0-46.0) % MCHC (31.0-37.0) g/dL RDW (11.5-15.5) % Plt Count (150-450) k/uL Neutrophils # (Manual) (1.3-7.7) k/uL Lymphocytes # (Manual) (1.0-4.8) k/uL Myelocytes # (Manual) (0) k/uL Nucleated RBCs (0-0) /100 WBC ABG pH (7.35-7.45) ABG pCO2 (35-45) mmHg ABG pO2 (83-108) mmHg ABG O2 Saturation (94-97) % Potassium (3.5-5.1) mmol/L Chloride (98-107) mmol/L Carbon Dioxide (22-30) mmol/L BUN (7-17) mg/dL Creatinine (0.52-1.04) mg/dL Glucose (74-99) mg/dL POC Glucose (mg/dL) 121 H 108 H 135 H (75-99) mg/dL Calcium (8.4-10.2) mg/dL Alkaline Phosphatase (38-126) U/L Total Protein (6.3-8.2) g/dL Albumin (3.5-5.0) g/dL 08/15/18 08/15/18 08/15/18 Range/Units 18:11 19:03 20:40 WBC (3.8-10.6) k/uL RBC (3.80-5.40) m/uL Hgb (11.4-16.0) gm/dL Hct (34.0-46.0) % MCHC (31.0-37.0) g/dL RDW (11.5-15.5) % Plt Count (150-450) k/uL Neutrophils # (Manual) (1.3-7.7) k/uL Lymphocytes # (Manual) (1.0-4.8) k/uL Myelocytes # (Manual) (0) k/uL Nucleated RBCs (0-0) /100 WBC ABG pH (7.35-7.45) ABG pCO2 (35-45) mmHg ABG pO2 (83-108) mmHg ABG O2 Saturation (94-97) % Potassium (3.5-5.1) mmol/L Chloride (98-107) mmol/L Carbon Dioxide (22-30) mmol/L BUN (7-17) mg/dL Creatinine (0.52-1.04) mg/dL Glucose (74-99) mg/dL POC Glucose (mg/dL) 149 H 172 H 188 H (75-99) mg/dL Calcium (8.4-10.2) mg/dL Alkaline Phosphatase (38-126) U/L Total Protein (6.3-8.2) g/dL Albumin (3.5-5.0) g/dL 08/15/18 08/16/18 08/16/18 Range/Units 21:39 00:07 01:40 WBC (3.8-10.6) k/uL RBC (3.80-5.40) m/uL Hgb (11.4-16.0) gm/dL Hct (34.0-46.0) % MCHC (31.0-37.0) g/dL RDW (11.5-15.5) % Plt Count (150-450) k/uL Neutrophils # (Manual) (1.3-7.7) k/uL Lymphocytes # (Manual) (1.0-4.8) k/uL Myelocytes # (Manual) (0) k/uL Nucleated RBCs (0-0) /100 WBC ABG pH (7.35-7.45) ABG pCO2 (35-45) mmHg ABG pO2 (83-108) mmHg ABG O2 Saturation (94-97) % Potassium (3.5-5.1) mmol/L Chloride (98-107) mmol/L Carbon Dioxide (22-30) mmol/L BUN (7-17) mg/dL Creatinine (0.52-1.04) mg/dL Glucose (74-99) mg/dL POC Glucose (mg/dL) 168 H 127 H 102 H (75-99) mg/dL Calcium (8.4-10.2) mg/dL Alkaline Phosphatase (38-126) U/L Total Protein (6.3-8.2) g/dL Albumin (3.5-5.0) g/dL 08/16/18 08/16/18 08/16/18 Range/Units 04:01 04:02 04:09 WBC 18.7 H (3.8-10.6) k/uL RBC 2.88 L (3.80-5.40) m/uL Hgb 8.2 L D (11.4-16.0) gm/dL Hct 28.3 L (34.0-46.0) % MCHC 29.0 L (31.0-37.0) g/dL RDW 19.4 H (11.5-15.5) % Plt Count 74 L (150-450) k/uL Neutrophils # (Manual) 16.27 H (1.3-7.7) k/uL Lymphocytes # (Manual) 0.94 L (1.0-4.8) k/uL Myelocytes # (Manual) 1.12 H (0) k/uL Nucleated RBCs 2 H (0-0) /100 WBC ABG pH (7.35-7.45) ABG pCO2 (35-45) mmHg ABG pO2 (83-108) mmHg ABG O2 Saturation (94-97) % Potassium (3.5-5.1) mmol/L Chloride (98-107) mmol/L Carbon Dioxide (22-30) mmol/L BUN (7-17) mg/dL Creatinine (0.52-1.04) mg/dL Glucose (74-99) mg/dL POC Glucose (mg/dL) 162 H 165 H (75-99) mg/dL Calcium (8.4-10.2) mg/dL Alkaline Phosphatase (38-126) U/L Total Protein (6.3-8.2) g/dL Albumin (3.5-5.0) g/dL 08/16/18 08/16/18 08/16/18 Range/Units 04:09 05:14 06:54 WBC (3.8-10.6) k/uL RBC (3.80-5.40) m/uL Hgb (11.4-16.0) gm/dL Hct (34.0-46.0) % MCHC (31.0-37.0) g/dL RDW (11.5-15.5) % Plt Count (150-450) k/uL Neutrophils # (Manual) (1.3-7.7) k/uL Lymphocytes # (Manual) (1.0-4.8) k/uL Myelocytes # (Manual) (0) k/uL Nucleated RBCs (0-0) /100 WBC ABG pH (7.35-7.45) ABG pCO2 (35-45) mmHg ABG pO2 (83-108) mmHg ABG O2 Saturation (94-97) % Potassium 5.5 H (3.5-5.1) mmol/L Chloride 111 H (98-107) mmol/L Carbon Dioxide 21 L (22-30) mmol/L BUN 59 H (7-17) mg/dL Creatinine 1.07 H (0.52-1.04) mg/dL Glucose 145 H (74-99) mg/dL POC Glucose (mg/dL) 74 L 70 L (75-99) mg/dL Calcium 8.2 L (8.4-10.2) mg/dL Alkaline Phosphatase 162 H (38-126) U/L Total Protein 4.8 L (6.3-8.2) g/dL Albumin 2.0 L (3.5-5.0) g/dL 08/16/18 08/16/18 08/16/18 Range/Units 07:28 08:19 09:11 WBC (3.8-10.6) k/uL RBC (3.80-5.40) m/uL Hgb (11.4-16.0) gm/dL Hct (34.0-46.0) % MCHC (31.0-37.0) g/dL RDW (11.5-15.5) % Plt Count (150-450) k/uL Neutrophils # (Manual) (1.3-7.7) k/uL Lymphocytes # (Manual) (1.0-4.8) k/uL Myelocytes # (Manual) (0) k/uL Nucleated RBCs (0-0) /100 WBC ABG pH 7.19 L* (7.35-7.45) ABG pCO2 56 H (35-45) mmHg ABG pO2 64 L (83-108) mmHg ABG O2 Saturation 91.9 L (94-97) % Potassium (3.5-5.1) mmol/L Chloride (98-107) mmol/L Carbon Dioxide (22-30) mmol/L BUN (7-17) mg/dL Creatinine (0.52-1.04) mg/dL Glucose (74-99) mg/dL POC Glucose (mg/dL) 209 H 193 H (75-99) mg/dL Calcium (8.4-10.2) mg/dL Alkaline Phosphatase (38-126) U/L Total Protein (6.3-8.2) g/dL Albumin (3.5-5.0) g/dL 08/16/18 Range/Units 10:28 WBC (3.8-10.6) k/uL RBC (3.80-5.40) m/uL Hgb (11.4-16.0) gm/dL Hct (34.0-46.0) % MCHC (31.0-37.0) g/dL RDW (11.5-15.5) % Plt Count (150-450) k/uL Neutrophils # (Manual) (1.3-7.7) k/uL Lymphocytes # (Manual) (1.0-4.8) k/uL Myelocytes # (Manual) (0) k/uL Nucleated RBCs (0-0) /100 WBC ABG pH (7.35-7.45) ABG pCO2 (35-45) mmHg ABG pO2 (83-108) mmHg ABG O2 Saturation (94-97) % Potassium (3.5-5.1) mmol/L Chloride (98-107) mmol/L Carbon Dioxide (22-30) mmol/L BUN (7-17) mg/dL Creatinine (0.52-1.04) mg/dL Glucose (74-99) mg/dL POC Glucose (mg/dL) 181 H (75-99) mg/dL Calcium (8.4-10.2) mg/dL Alkaline Phosphatase (38-126) U/L Total Protein (6.3-8.2) g/dL Albumin (3.5-5.0) g/dL Microbiology - Last 24 Hours (Table) 08/10/18 18:30 Blood Culture - Preliminary Blood No Growth after 120 hours 08/09/18 16:50 Blood Culture - Final Blood No Growth after 144 hours 08/13/18 14:50 Blood Culture - Preliminary Blood No Growth after 48 hours Assessment and Plan Assessment: Impression: Acute hypoxic respiratory failure secondary to ARDS secondary to abdominal sepsis. 2 complicated diverticular abscess with bowel perforation, status post exploratory laparotomy and sigmoid colectomy and ostomy appendectomy postoperative day # 17 3 status post repeat exploratory laparotomy and small bowel resection and abscess drainage and diverting ileostomy postoperative day # 8 4 acute septic shock secondary to intra-abdominal abscess 5 excessive volume overload and hypoalbuminemia contributing to significant swelling and third spacing with significant bipedal edema. Did not respond to albumin and Lasix infusions. 6 open wound/abdominal wound with necrosis of the wound surfaces status post debridement. 7 extensive subcutaneous emphysema probably from pneumomediastinum and status post horizontal incision made in the skin and fascia to allow drainage of subcutaneous air. Postoperative day #2 8 chronic anemia 9 adrenocortical insufficiency on IV hydrocortisone. We'll cut down the dose to 50 mg IV push every 8 hours. 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 May require surgical resection. 11 status post tracheostomy, postoperative day # 2 Recommendation: Continue present supportive care measures, continue ventilatory support, nutritional support,/TPN. Continue GI and DVT prophylaxis. Continue high PEEP at 15 presently FiO2 was cut down to 50%, patient is not ready for any weaning trials. I believe her prognosis is extremely poor, and chances of pulling through this is less than 5%. was updated on a daily basis on her condition, he is still reluctant to consider DO NOT RESUSCITATE CODE STATUS or comfort care measures. In the meantime we'll continue antibiotics, bronchodilators, antifungal therapy, hydrocortisone, diuretics intermittently, insulin, I still believe her mortality is probably in the range of 90% or more. Patient remains critically ill. Critical care time is 35 minutes Time with Patient: Greater than 30
[2018-08-16 12:17] LABS: Glucose,Whole Blood 152 mg/dL (75-99)
[2018-08-16 13:38] LABS: Glucose,Whole Blood 149 mg/dL (75-99)
--- NOTE | 2018-08-16 14:23 | P.PN ---
Subjective Progress Note Date: 08/16/18 Principal diagnosis: follow up of diverticular abscess complicated by bowel perf, and ARDS with septic shock patient seen and examined, s/p trach 08/14, continues to be on vent support and sedated. Leukocytosis improved slightly today , no fevers overnight patient is deeply sedated. weaning off IV pressors as possible , receiving boluses of IVF no new events overnight Objective - Vital Signs Vital signs: Vital Signs Temp 98.3 F 08/16/18 12:00 Pulse 98 08/16/18 14:00 Resp 37 H 08/16/18 14:00 BP 97/56 08/14/18 17:00 Pulse Ox 91 L 08/16/18 14:00 Intake & Output 08/15/18 08/16/18 08/16/18 18:59 06:59 18:59 Intake Total 2980.650 1839.635 5150.231 Output Total 550 138 125 Balance 2430.650 7769.481 3170.231 Weight 75.3 kg Intake: IV 1610.66 871 684 Anidulafungin 100 mg In 100 130 Sodium Chloride 0.9% 100 ml @ 84 mls/hr IVPB DAILY [facility] Rx#:[id number] Fentanyl 5 Mvi, Adult No.4 with Vit 45 K 10 ml Trace (Conc-1Ml/ Dose) 1 ml Parenteral Electrolytes 20 ml Potassium Chloride 20 meq In Amino Acid 5%-D15w 1, 000 ml @ 45 mls/hr IV . Q23H8M [facility] Rx#:[id number] Mvi, Adult No.4 with Vit 495 270 K 10 ml Trace (Conc-1Ml/ Dose) 1 ml Potassium Chloride 40 meq Calcium Gluconate 1 gm Magnesium Sulfate gm 0.5 gm Potassium Acetate 10 meq In Amino Acid 5%-D15w 1, 000 ml @ 45 mls/hr IV . [id number] [facility] Rx#:[id number] NImbex 4.66 Piperacillin-Tazobactam 3 200 100 100 .375 gm In Sodium Chloride 0.9% 100 ml @ 25 mls/hr IVPB Q8HR [facility] Rx# :[id number] Pressure bag 36 36 24 Sodium Chloride 0.45% 1, 220 240 160 000 ml @ 20 mls/hr IV . Q24H [facility] Rx#:[id number] Sodium Chloride 0.9% 1, 1000 000 ml @ 999 mls/hr IV . Q1H1M [facility] Rx#:[id number] Intake, IV Titration 1369.990 682.794 5944.231 Amount Cisatracurium 200 mg In 101.743 59.493 40.697 Sodium Chloride 0.9% 180 ml @ 1 MCG/KG/MIN 4.66 mls/hr IV .Q24H [facility] Rx#: [id number] Insulin Regular 100 unit 5.088 32.756 30.633 In Sodium Chloride 0.9% 100 ml @ Per Protocol IV .Q0M [facility] Rx#:[id number] Lactated Ringers 1,000 ml 1000 @ 999 mls/hr IV .Q1H1M [facility] Rx#:[id number] Mvi, Adult No.4 with Vit 1020 K 10 ml Trace (Conc-1Ml/ Dose) 1 ml Potassium Chloride 40 meq Calcium Gluconate 1 gm Magnesium Sulfate gm 0.5 gm Potassium Acetate 10 meq In Amino Acid 5%-D15w 1, 000 ml @ 45 mls/hr IV . [id number] [facility] Rx#:[id number] Norepinephrine 32 mg In 13.915 63.790 13.505 Sodium Chloride 0.9% 250 ml @ 0.1 MCG/KG/MIN 4.28 mls/hr IV .Q24H [facility] Rx#: [id number] Propofol 1,000 mg In 186.365 185.089 199.396 Empty Bag 1 bag @ Titrate IV .Q0M [facility] Rx#: [id number] fentaNYL (PF) 1,000 mcg 42.879 38.905 In Sodium Chloride 0.9% 80 ml @ 0.62 MCG/KG/HR 5. 02 mls/hr IV .[id number] [facility] Rx#:[id number] Output: Drainage 130 Right Abdomen 130 Urine 320 138 125 Stool 100 Other: Voiding Method Indwelling Catheter Indwelling Catheter Indwelling Catheter # Voids 2 ABP, PAP, CO, CI - Last Documented Arterial Blood Pressure 133/46 - Exam Constitutional: Intubated currently on mechanical ventilator, fully sedated , oral mucosa with blood tinged frothy secretions Lungs: good breath sounds bilaterally Cardiovascular: Heart regular in rate and rhythm, No murmurs, gallops, or rubs , +3 peripheral edema with seeping fluids through skin tears Abdominal: edema of abd wall, colostomy and ileostomy in place with dark fluid collection in ileostomy, negative bowel sounds Skin: Multiple tears with seepage of serous fluid due to anasarca Extremities: Left thumb discolored with ischemic changes and necrosis. Dark discoloration of the fingers bilaterally mainly over the tips Neuro and Psychiatric: unable to assess, patient is sedated left subclavian central line emmanuel cath arterial line trach to vent support - Labs CBC & Chem 7: 08/16/18 04:09 08/16/18 04:09 Labs: Abnormal Lab Results - Last 24 Hours (Table) 08/15/18 08/15/18 08/15/18 Range/Units 16:14 18:11 19:03 WBC (3.8-10.6) k/uL RBC (3.80-5.40) m/uL Hgb (11.4-16.0) gm/dL Hct (34.0-46.0) % MCHC (31.0-37.0) g/dL RDW (11.5-15.5) % Plt Count (150-450) k/uL Neutrophils # (Manual) (1.3-7.7) k/uL Lymphocytes # (Manual) (1.0-4.8) k/uL Myelocytes # (Manual) (0) k/uL Nucleated RBCs (0-0) /100 WBC ABG pH (7.35-7.45) ABG pCO2 (35-45) mmHg ABG pO2 (83-108) mmHg ABG O2 Saturation (94-97) % Potassium (3.5-5.1) mmol/L Chloride (98-107) mmol/L Carbon Dioxide (22-30) mmol/L BUN (7-17) mg/dL Creatinine (0.52-1.04) mg/dL Glucose (74-99) mg/dL POC Glucose (mg/dL) 135 H 149 H 172 H (75-99) mg/dL Calcium (8.4-10.2) mg/dL Alkaline Phosphatase (38-126) U/L Total Protein (6.3-8.2) g/dL Albumin (3.5-5.0) g/dL 08/15/18 08/15/18 08/16/18 Range/Units 20:40 21:39 00:07 WBC (3.8-10.6) k/uL RBC (3.80-5.40) m/uL Hgb (11.4-16.0) gm/dL Hct (34.0-46.0) % MCHC (31.0-37.0) g/dL RDW (11.5-15.5) % Plt Count (150-450) k/uL Neutrophils # (Manual) (1.3-7.7) k/uL Lymphocytes # (Manual) (1.0-4.8) k/uL Myelocytes # (Manual) (0) k/uL Nucleated RBCs (0-0) /100 WBC ABG pH (7.35-7.45) ABG pCO2 (35-45) mmHg ABG pO2 (83-108) mmHg ABG O2 Saturation (94-97) % Potassium (3.5-5.1) mmol/L Chloride (98-107) mmol/L Carbon Dioxide (22-30) mmol/L BUN (7-17) mg/dL Creatinine (0.52-1.04) mg/dL Glucose (74-99) mg/dL POC Glucose (mg/dL) 188 H 168 H 127 H (75-99) mg/dL Calcium (8.4-10.2) mg/dL Alkaline Phosphatase (38-126) U/L Total Protein (6.3-8.2) g/dL Albumin (3.5-5.0) g/dL 08/16/18 08/16/18 08/16/18 Range/Units 01:40 04:01 04:02 WBC (3.8-10.6) k/uL RBC (3.80-5.40) m/uL Hgb (11.4-16.0) gm/dL Hct (34.0-46.0) % MCHC (31.0-37.0) g/dL RDW (11.5-15.5) % Plt Count (150-450) k/uL Neutrophils # (Manual) (1.3-7.7) k/uL Lymphocytes # (Manual) (1.0-4.8) k/uL Myelocytes # (Manual) (0) k/uL Nucleated RBCs (0-0) /100 WBC ABG pH (7.35-7.45) ABG pCO2 (35-45) mmHg ABG pO2 (83-108) mmHg ABG O2 Saturation (94-97) % Potassium (3.5-5.1) mmol/L Chloride (98-107) mmol/L Carbon Dioxide (22-30) mmol/L BUN (7-17) mg/dL Creatinine (0.52-1.04) mg/dL Glucose (74-99) mg/dL POC Glucose (mg/dL) 102 H 162 H 165 H (75-99) mg/dL Calcium (8.4-10.2) mg/dL Alkaline Phosphatase (38-126) U/L Total Protein (6.3-8.2) g/dL Albumin (3.5-5.0) g/dL 08/16/18 08/16/18 08/16/18 Range/Units 04:09 04:09 05:14 WBC 18.7 H (3.8-10.6) k/uL RBC 2.88 L (3.80-5.40) m/uL Hgb 8.2 L D (11.4-16.0) gm/dL Hct 28.3 L (34.0-46.0) % MCHC 29.0 L (31.0-37.0) g/dL RDW 19.4 H (11.5-15.5) % Plt Count 74 L (150-450) k/uL Neutrophils # (Manual) 16.27 H (1.3-7.7) k/uL Lymphocytes # (Manual) 0.94 L (1.0-4.8) k/uL Myelocytes # (Manual) 1.12 H (0) k/uL Nucleated RBCs 2 H (0-0) /100 WBC ABG pH (7.35-7.45) ABG pCO2 (35-45) mmHg ABG pO2 (83-108) mmHg ABG O2 Saturation (94-97) % Potassium 5.5 H (3.5-5.1) mmol/L Chloride 111 H (98-107) mmol/L Carbon Dioxide 21 L (22-30) mmol/L BUN 59 H (7-17) mg/dL Creatinine 1.07 H (0.52-1.04) mg/dL Glucose 145 H (74-99) mg/dL POC Glucose (mg/dL) 74 L (75-99) mg/dL Calcium 8.2 L (8.4-10.2) mg/dL Alkaline Phosphatase 162 H (38-126) U/L Total Protein 4.8 L (6.3-8.2) g/dL Albumin 2.0 L (3.5-5.0) g/dL 08/16/18 08/16/18 08/16/18 Range/Units 06:54 07:28 08:19 WBC (3.8-10.6) k/uL RBC (3.80-5.40) m/uL Hgb (11.4-16.0) gm/dL Hct (34.0-46.0) % MCHC (31.0-37.0) g/dL RDW (11.5-15.5) % Plt Count (150-450) k/uL Neutrophils # (Manual) (1.3-7.7) k/uL Lymphocytes # (Manual) (1.0-4.8) k/uL Myelocytes # (Manual) (0) k/uL Nucleated RBCs (0-0) /100 WBC ABG pH 7.19 L* (7.35-7.45) ABG pCO2 56 H (35-45) mmHg ABG pO2 64 L (83-108) mmHg ABG O2 Saturation 91.9 L (94-97) % Potassium (3.5-5.1) mmol/L Chloride (98-107) mmol/L Carbon Dioxide (22-30) mmol/L BUN (7-17) mg/dL Creatinine (0.52-1.04) mg/dL Glucose (74-99) mg/dL POC Glucose (mg/dL) 70 L 209 H (75-99) mg/dL Calcium (8.4-10.2) mg/dL Alkaline Phosphatase (38-126) U/L Total Protein (6.3-8.2) g/dL Albumin (3.5-5.0) g/dL 08/16/18 08/16/18 08/16/18 Range/Units 09:11 10:28 11:14 WBC (3.8-10.6) k/uL RBC (3.80-5.40) m/uL Hgb (11.4-16.0) gm/dL Hct (34.0-46.0) % MCHC (31.0-37.0) g/dL RDW (11.5-15.5) % Plt Count (150-450) k/uL Neutrophils # (Manual) (1.3-7.7) k/uL Lymphocytes # (Manual) (1.0-4.8) k/uL Myelocytes # (Manual) (0) k/uL Nucleated RBCs (0-0) /100 WBC ABG pH (7.35-7.45) ABG pCO2 (35-45) mmHg ABG pO2 (83-108) mmHg ABG O2 Saturation (94-97) % Potassium (3.5-5.1) mmol/L Chloride (98-107) mmol/L Carbon Dioxide (22-30) mmol/L BUN (7-17) mg/dL Creatinine (0.52-1.04) mg/dL Glucose (74-99) mg/dL POC Glucose (mg/dL) 193 H 181 H 162 H (75-99) mg/dL Calcium (8.4-10.2) mg/dL Alkaline Phosphatase (38-126) U/L Total Protein (6.3-8.2) g/dL Albumin (3.5-5.0) g/dL 08/16/18 08/16/18 Range/Units 12:14 13:35 WBC (3.8-10.6) k/uL RBC (3.80-5.40) m/uL Hgb (11.4-16.0) gm/dL Hct (34.0-46.0) % MCHC (31.0-37.0) g/dL RDW (11.5-15.5) % Plt Count (150-450) k/uL Neutrophils # (Manual) (1.3-7.7) k/uL Lymphocytes # (Manual) (1.0-4.8) k/uL Myelocytes # (Manual) (0) k/uL Nucleated RBCs (0-0) /100 WBC ABG pH (7.35-7.45) ABG pCO2 (35-45) mmHg ABG pO2 (83-108) mmHg ABG O2 Saturation (94-97) % Potassium (3.5-5.1) mmol/L Chloride (98-107) mmol/L Carbon Dioxide (22-30) mmol/L BUN (7-17) mg/dL Creatinine (0.52-1.04) mg/dL Glucose (74-99) mg/dL POC Glucose (mg/dL) 152 H 149 H (75-99) mg/dL Calcium (8.4-10.2) mg/dL Alkaline Phosphatase (38-126) U/L Total Protein (6.3-8.2) g/dL Albumin (3.5-5.0) g/dL Microbiology - Last 24 Hours (Table) 08/10/18 18:30 Blood Culture - Preliminary Blood No Growth after 120 hours 08/09/18 16:50 Blood Culture - Final Blood No Growth after 144 hours 08/13/18 14:50 Blood Culture - Preliminary Blood No Growth after 48 hours Assessment and Plan Assessment: Patient is a 58-year-old female with no significant past medical history who presented to the emergency department at the recommendations of her PCP for dehydration, nausea, and vomiting. In the emergency department she underwent an extensive evaluation. Computed tomography scan of the abdomen showed diverticular abscess with partial bowel obstruction she was admitted for further management. She was started on IV fluids, antibiotics and was admitted. General surgery was consulted. Patient initially wanted conservative management did not want surgery. Interventional radiology was consulted and she underwent abscess ranges placement of percutaneous drain on . She was found to have an elevated PTT and hematology was consulted. They felt that this was likely due to poor nutritional intake and ordered additional vitamin K. Her PT INR normalized with additional vitamin K. She was seen by ID to assist with antibiotics management . She had initially been progressing well. Overnight on 07/29 she developed increasing pain and nausea. She started requiring IV narcotics for treatment of her pain. She then became tachycardic. Morning blood work on 07/30 showed a depressed white blood cell count at 2.5, and carbon dioxide of 12. Stat CT with IV contrast as well as a stat lactic acid and a [address] abdomen and pelvis showed free air. Case discussed with Dr. Jacobson and patient was taken urgently to the operating room for ex-lap due to perforated viscus. During the procedure, the patient was noted to have fecal peritonitis and underwent a sigmoid colectomy with end colostomy. She was transferred to the ICU post-operatively and was started on IV pressors. The patient was extubated on 07/31/18. However, she continued to require Levophed. ID recommended the patient to be switched to Unasyn and Flagyl. patient was started on hydrocortisone for suspected adrenal insufficiency. On 08/02 the patient developed respiratory distress and was re- intubated. She was also noted to have L thumb discoloration with history of art line placement on that wrist. Vascular surgery was consulted and did not recommend urgent surgical intervention. Her pressors were able to taken off momentarily on 08/06 but required to be restarted on 08/07. She had a dusky appearance to the wound edges and was taken back to the OR on 08/09 and underwent small bowel resection with abdominal wound debridement. on 08/14 Patient with facial swelling subcutaneous emphysema and anasarca. 08/14 patient underwent tracheostomy and to re-debridement abdominal wound which she tolerated well, now patient requiring deep sedation and paralytics to achieve good oxygenation and washing CO2 out. 08/16 attempts to wean off IV pressors, and nimbex. otherwise no events overnight, continues with supportive care. continues to be full code. Plan: Respiratory Acute hypoxic respiratory failure secondary to ARDS secondary to abdominal sepsis Vent support, status post tracheostomy, currently deeply sedated and paralyzed, attempts to wean off Nimbex today Follow-up ABGs, which is showing mainly respiratory acidosis Cardiovascular Patient off/on IV pressors as needed, attempts to wean off IV pressors, IVF boluses as needed to help with urine output, patient intravascularly depleted, patient given albumin overnight Left thumb ischemia with evidence of poor circulation to both bilateral fingers vascular surgery following Infectious Septic shock from abdominal source due to bowel perforation and peritonitis has competitions of diverticular abscess( Diverticulitis with abscess and bowel perforation with septic shock s/p sigmoid colectomy, small bowel resection X 2 and appendectomy and debridement of wound necrosis ) Continue patient on broad-spectrum antibiotics per ID recommendations vancomycin and zosyn and Eraxis Echocardiogram showed hyperdynamic left ventricular function 08/14 s/p re-debridement of the necrosis of the borders of the wound, Gen. surgery following on hydrocortison 50 mg TID Metabolic Follow-up electrolytes replace as needed Diffuse generalized anasarca due to hypoalbuminemia and third spacing of fluids , s/p albumin and lasix Transaminitis likely due to TPN and hypoperfusion from shock liver , follow liver enzymes Hyperglycemia , continue with insulin gtt Hematologic Anemia, today all three indices Hgb, WBC, Platelets trended down, most likely secondary to dilutional effect of IVF boluses overnight in an attempt to improve BP and urine output GI Post-op ileus on TPN NGT to suction general surgery recs Vascular Left thumb ischemia secondary to radial artery occlusion - vascular surgery recs appreciated, conservative management at this time. DVT prophylaxis: Heparin held by general surgery Anticipated discharge: undetermined Place: [facility] vs [facility] poor continues to request full code, and full theraputic measures . He is not ready to consider hospice measures at this point despite poor prognosis .
[2018-08-16 14:34] LABS: Glucose,Whole Blood 139 mg/dL (75-99)
[2018-08-16] MEDS: SODIUM CHLORIDE 0.45% 1,000 ML IV SCH (15:39)
[2018-08-16 16:15] LABS: Glucose,Whole Blood 139 mg/dL (75-99)
[2018-08-16] MEDS: NOREPINEPHRINE 32 MG in SODIUM CHLORIDE 0.9% 218 ML IV SCH (16:43)
--- NOTE | 2018-08-16 17:04 | PN ---
PROGRESS NOTE DATE OF SERVICE: 08/16/2018. REASON FOR FOLLOWUP: Abdominal sepsis. INTERVAL HISTORY: The patient is currently afebrile. She noticed to be hypertensive requiring pressor support. FIO2 is currently 50%. She did have some leak around the trach . PHYSICAL EXAMINATION: Blood pressure 97/56, pulse of 100, temperature of 98. She is 90% on 50% FiO2. General description is a middle aged female, lying in bed in no distress. HEENT: Shows slight pallor. The patient is . NECK: Trach site is clean. LUNGS: Unlabored breathing with decreased breath sounds at the bases. Heart is S1, S2. Regular rate and rhythm. Abdomen soft. Extremities with 3+ edema of feet. LABS: Hemoglobin is 8.2, white count of 18.7. Slightly decreased from yesterday, 23.5. BUN of 59 and creatinine 1.07. DIAGNOSTIC IMPRESSION AND PLAN: Patient with abdominal sepsis in a patient who did have extensive for perforated sigmoid diverticulitis with surgery for a small-bowel leak status post tracheostomy. Patient overall prognosis remains to be guarded. The patient is currently followed with Zosyn and vancomycin. Family present at bedside. Questions were answered. MMODL / IJN: [id number] /
[2018-08-16] MEDS: NOREPINEPHRINE 32 MG in SODIUM CHLORIDE 0.9% 250 ML IV SCH (17:21)
[2018-08-16 17:44] LABS: Glucose,Whole Blood 137 mg/dL (75-99)
[2018-08-16 18:56] LABS: Glucose,Whole Blood 128 mg/dL (75-99)
[2018-08-16 20:46] LABS: Glucose,Whole Blood 128 mg/dL (75-99)
[2018-08-16] MEDS ORDERED: ALBUMIN HUMAN 25% 50 ML in EMPTY BAG 1 BAG IVPB ONE ×2 (21:56)
[2018-08-16] MEDS ORDERED: FUROSEMIDE 10 MG/ML 4 ML VIAL IV STA (22:01)
[2018-08-16 22:42] LABS: Glucose,Whole Blood 125 mg/dL (75-99)
[2018-08-17 00:13] LABS: Glucose,Whole Blood 126 mg/dL (75-99)
[2018-08-17] MEDS: PIPERACILLIN-TAZOBACTAM 3.375 GM in SODIUM CHLORIDE 0.9% 100 ML IVPB SCH ×4 (00:23→23:18)
[2018-08-17] MEDS: METOCLOPRAMIDE 5 MG/ML 2 ML VIAL IVP SCH ×5 (00:24→23:16)
[2018-08-17] MEDS: HYDROCORTISONE SUCCINATE 100 MG/2 ML VIAL IV SCH ×4 (00:24→23:16)
[2018-08-17] MEDS: INSULIN REGULAR 100 UNIT in SODIUM CHLORIDE 0.9% 100 ML IV SCH (01:20)
[2018-08-17 02:28] LABS: Glucose,Whole Blood 117 mg/dL (75-99)
[2018-08-17 04:56] LABS: Anisocytosis Slight; Basophils # (A) 0.1 k/uL (0-0.2); Basophils % (A) 1 %; Eosinophils # (A) 0.1 k/uL (0-0.7); Eosinophils % (A) 1 %; HCT 24.8 % (34.0-46.0); Hypochromasia Marked; Lymphocytes # (A) 0.8 k/uL (1.0-4.8); Lymphocytes % (A) 7 %; MCH 29.2 pg (25.0-35.0); MCHC 29.7 g/dL (31.0-37.0); MCV 98.4 fL (80.0-100.0); Macrocytosis Slight; Mean Platelet Volume 10.9; Monocytes # (A) 0.2 k/uL (0-1.0); Monocytes % (A) 2 %; Neutrophils # (A) 10.7 k/uL (1.3-7.7); Neutrophils % (A) 89 %; Poikilocytosis Moderate; RBC 2.52 m/uL (3.80-5.40); RDW 19.3 % (11.5-15.5)
[2018-08-17 05:00] LABS: Albumin 2.2 g/dL (3.5-5.0); Calcium 8.6 mg/dL (8.4-10.2); Potassium 5.1 mmol/L (3.5-5.1); Total Bilirubin 0.9 mg/dL (0.2-1.3)
[2018-08-17 05:05] LABS: HGB 7.4 gm/dL (11.4-16.0); Platelet Count 59 k/uL (150-450)
[2018-08-17 05:07] LABS: Glucose,Whole Blood 138 mg/dL (75-99)
[2018-08-17] MEDS: PROPOFOL 1,000 MG in EMPTY BAG 1 BAG IV SCH ×4 (05:28→23:18)
[2018-08-17 06:14] LABS: Glucose,Whole Blood 130 mg/dL (75-99)
--- NOTE | 2018-08-17 07:53 | XR ---
EXAMINATION TYPE: XR chest 1V portable DATE OF EXAM: 08/17/2018 COMPARISON: 08/16/2018 INDICATION: ARDS TECHNIQUE: Single frontal view of the chest is obtained. FINDINGS: The heart size is normal. The pulmonary vasculature is indistinct. Bilateral increased lung markings are present. Correlate for ARDS this may be slightly more focal in left lower lobe. Pneumonia remains within the differential. Tracheostomy tube is in the midline. Nasogastric tube transverses the thorax. EKG leads overlie the c hest. Left central venous catheter tip is within the proximal right atrium. Extensive overlying subcu taneous emphysema is evident. IMPRESSION: 1. Findings which can be compatible with ARDS in the proper clinical setting. 2. Lines and catheters discussed above.
[2018-08-17 07:55] LABS: ABG Base Excess -9.5 mmol/L; ABG HCO3 19 mmol/L (21-25); ABG Oxygen Saturation 97.1 % (94-97); ABG PCO2 51 mmHg (35-45); ABG PO2 94 mmHg (83-108); ABG TCO2 20 mmol/L (19-24)
[2018-08-17 07:58] LABS: ABG PH 7.18 (7.35-7.45)
[2018-08-17] MEDS: IPRATROPIUM-ALBUTEROL 3 ML NEB INHALATION SCH ×4 (07:59→20:06)
[2018-08-17] MEDS: PANTOPRAZOLE 40 MG/10 ML VIAL IVP SCH (08:07)
[2018-08-17] MEDS: CHLORHEXIDINE GLUCONATE 15 ML CUP MUCOUS MEM SCH ×2 (08:08→21:25)
[2018-08-17] MEDS: SODIUM CHLORIDE 0.45% 1,000 ML IV SCH (08:08)
[2018-08-17] MEDS: ANIDULAFUNGIN 100 MG in SODIUM CHLORIDE 0.9% 100 ML IVPB SCH (08:20)
[2018-08-17] MEDS: DEXTROSE 5% IN WATER 1,000 ML with SODIUM BICARB (1 MEQ/ML) 150 ML IV SCH (08:39)
[2018-08-17] MEDS: [UNRECOGNIZED DRUG - REMARK] IV SCH ×6 (08:39)
[2018-08-17 08:43] LABS: Glucose,Whole Blood 135 mg/dL (75-99)
[2018-08-17] MEDS: CISATRACURIUM 200 MG in SODIUM CHLORIDE 0.9% 180 ML IV SCH (08:44)
--- NOTE | 2018-08-17 10:33 | P.PN ---
<AmyMaya A - Last Filed: 08/17/18 14:11> Subjective Progress Note Date: 08/17/18 CHIEF COMPLAINT: Abdominal pain HISTORY OF PRESENT ILLNESS: Patient examined at the bedside. patient s/p trach and wound debridement. POD #3. Patient remains sedated on mechanical ventilation. PHYSICAL EXAM: VITAL SIGNS: Currently stable. GENERAL: Sedated on ventilator. HEENT: Trach noted. OG tube noted. No sclera icterus. Extraocular movements grossly intact. Dry mucusa with old bloody drainage noted. Head is normocephalic. No nasal drainage. NECK: Supple without lymphadenopathy. CHEST: Equal bilateral excursions. Currently vented. CARDIOVASCULAR: Regular rate with regular rhythm. ABDOMEN: Distended. Ostomy x 2 with serous drainage on left. Dark brown/black drainage on right. Abdominal dressing CDI. NEUROLOGIC: Unable to assess secondary to intubation PSYCH: Unable to assess secondary to intubation ASSESSMENT: 1. Small bowel obstruction with perforated sigmoid colon and fecal peritonitis 2. Status post sigmoid colectomy with end colostomy, takedown of splenic flexure, small bowel resection 2, and appendectomy 3. Postoperative ileus 4. S/P repeat exploratory laparotomy and small bowel resection and abscess drainage and diverting ileostomy 5. S/P tracheostomy PLAN: 1. ICU management per gas desulfurizer. 2. Continue TPN 3. Daily wet to dry dressing changes of abdominal wound 4. Patients prognosis is extremely poor. No further wound debridements or surgical procedures will be performed per Dr. Jacobson. Nurse practitioner note has been reviewed by physician. Signing provider agrees with the documented findings, assessment, and plan of care. Objective - Vital Signs Vital signs: Vital Signs Temp 97.5 F L 08/17/18 04:00 Pulse 88 08/17/18 10:00 Resp 31 H 08/17/18 10:00 BP 97/56 08/14/18 17:00 Pulse Ox 95 08/17/18 10:00 Intake & Output 08/16/18 08/17/18 08/17/18 18:59 06:59 18:59 Intake Total 2514.597 3680.462 9722.25 Output Total 330 755 114 Balance 2184.597 174.200 5439.25 Weight 79.6 kg Intake: IV 1056 904 330 Anidulafungin 100 mg In 130 130 Sodium Chloride 0.9% 100 ml @ 84 mls/hr IVPB DAILY [facility] Rx#:[id number] Mvi, Adult No.4 with Vit 450 585 K 10 ml Trace (Conc-1Ml/ Dose) 1 ml Potassium Chloride 40 meq Calcium Gluconate 1 gm Magnesium Sulfate gm 0.5 gm Potassium Acetate 10 meq In Amino Acid 5%-D15w 1, 000 ml @ 45 mls/hr IV . [id number] [facility] Rx#:[id number] Piperacillin-Tazobactam 3 200 100 100 .375 gm In Sodium Chloride 0.9% 100 ml @ 25 mls/hr IVPB Q8HR [facility] Rx# :[id number] Pressure bag 36 39 Sodium Chloride 0.45% 1, 240 180 100 000 ml @ 50 mls/hr IV . Q20H [facility] Rx#:[id number] Intake, IV Titration 1458.597 373.541 974.25 Amount Albumin Human 25% 50 ml 50 In Empty Bag 1 bag @ 50 mls/hr IVPB ONCE ONE Rx#: [id number] Cisatracurium 200 mg In 40.697 Sodium Chloride 0.9% 180 ml @ 1 MCG/KG/MIN 4.66 mls/hr IV .Q24H [facility] Rx#: [id number] Insulin Regular 100 unit 30.633 16.775 In Sodium Chloride 0.9% 100 ml @ Per Protocol IV .Q0M [facility] Rx#:[id number] Lactated Ringers 1,000 ml 1000 @ 999 mls/hr IV .Q1H1M [facility] Rx#:[id number] Mvi, Adult No.4 with Vit 974.25 K 10 ml Trace (Conc-1Ml/ Dose) 1 ml Calcium Gluconate 1 gm Magnesium Sulfate gm 0.5 gm Sodium Acetate 20 meq In Amino Acid 5%-D15w 1,000 ml @ 45 mls/hr IV .[id number] [facility] Rx#:[id number] Norepinephrine 32 mg In 67.795 8.876 Sodium Chloride 0.9% 218 ml @ 0.05 MCG/KG/MIN 1.82 mls/hr IV .Q24H [facility] Rx#: [id number] Norepinephrine 32 mg In 20.076 Sodium Chloride 0.9% 250 ml @ 0.1 MCG/KG/MIN 4.28 mls/hr IV .Q24H [facility] Rx#: [id number] Propofol 1,000 mg In 299.396 197.89 Empty Bag 1 bag @ Titrate IV .Q0M [facility] Rx#: [id number] fentaNYL (PF) 1,000 mcg 100 In Sodium Chloride 0.9% 80 ml @ 0.62 MCG/KG/HR 5. 02 mls/hr IV .[id number] [facility] Rx#:[id number] Output: Gastric Drainage 100 Drainage 30 20 40 Right Abdomen 30 20 40 Urine 200 235 74 Stool 100 400 Other: Voiding Method Indwelling Catheter Indwelling Catheter # Voids 2 ABP, PAP, CO, CI - Last Documented Arterial Blood Pressure 134/47 - Labs CBC & Chem 7: 08/17/18 04:20 08/17/18 04:20 Labs: Abnormal Lab Results - Last 24 Hours (Table) 08/16/18 08/16/18 08/16/18 Range/Units 11:14 12:14 13:35 WBC (3.8-10.6) k/uL RBC (3.80-5.40) m/uL Hgb (11.4-16.0) gm/dL Hct (34.0-46.0) % MCHC (31.0-37.0) g/dL RDW (11.5-15.5) % Plt Count (150-450) k/uL Neutrophils # (1.3-7.7) k/uL Lymphocytes # (1.0-4.8) k/uL ABG pH (7.35-7.45) ABG pCO2 (35-45) mmHg ABG HCO3 (21-25) mmol/L ABG O2 Saturation (94-97) % Chloride (98-107) mmol/L Carbon Dioxide (22-30) mmol/L BUN (7-17) mg/dL Creatinine (0.52-1.04) mg/dL Glucose (74-99) mg/dL POC Glucose (mg/dL) 162 H 152 H 149 H (75-99) mg/dL Alkaline Phosphatase (38-126) U/L Total Protein (6.3-8.2) g/dL Albumin (3.5-5.0) g/dL 08/16/18 08/16/18 08/16/18 Range/Units 14:08 15:50 17:17 WBC (3.8-10.6) k/uL RBC (3.80-5.40) m/uL Hgb (11.4-16.0) gm/dL Hct (34.0-46.0) % MCHC (31.0-37.0) g/dL RDW (11.5-15.5) % Plt Count (150-450) k/uL Neutrophils # (1.3-7.7) k/uL Lymphocytes # (1.0-4.8) k/uL ABG pH (7.35-7.45) ABG pCO2 (35-45) mmHg ABG HCO3 (21-25) mmol/L ABG O2 Saturation (94-97) % Chloride (98-107) mmol/L Carbon Dioxide (22-30) mmol/L BUN (7-17) mg/dL Creatinine (0.52-1.04) mg/dL Glucose (74-99) mg/dL POC Glucose (mg/dL) 139 H 139 H 137 H (75-99) mg/dL Alkaline Phosphatase (38-126) U/L Total Protein (6.3-8.2) g/dL Albumin (3.5-5.0) g/dL 08/16/18 08/16/18 08/16/18 Range/Units 18:19 20:17 22:16 WBC (3.8-10.6) k/uL RBC (3.80-5.40) m/uL Hgb (11.4-16.0) gm/dL Hct (34.0-46.0) % MCHC (31.0-37.0) g/dL RDW (11.5-15.5) % Plt Count (150-450) k/uL Neutrophils # (1.3-7.7) k/uL Lymphocytes # (1.0-4.8) k/uL ABG pH (7.35-7.45) ABG pCO2 (35-45) mmHg ABG HCO3 (21-25) mmol/L ABG O2 Saturation (94-97) % Chloride (98-107) mmol/L Carbon Dioxide (22-30) mmol/L BUN (7-17) mg/dL Creatinine (0.52-1.04) mg/dL Glucose (74-99) mg/dL POC Glucose (mg/dL) 128 H 128 H 125 H (75-99) mg/dL Alkaline Phosphatase (38-126) U/L Total Protein (6.3-8.2) g/dL Albumin (3.5-5.0) g/dL 08/16/18 08/17/18 08/17/18 Range/Units 23:59 02:24 04:20 WBC 12.0 H (3.8-10.6) k/uL RBC 2.52 L (3.80-5.40) m/uL Hgb 7.4 L (11.4-16.0) gm/dL Hct 24.8 L (34.0-46.0) % MCHC 29.7 L (31.0-37.0) g/dL RDW 19.3 H (11.5-15.5) % Plt Count 59 L (150-450) k/uL Neutrophils # 10.7 H (1.3-7.7) k/uL Lymphocytes # 0.8 L (1.0-4.8) k/uL ABG pH (7.35-7.45) ABG pCO2 (35-45) mmHg ABG HCO3 (21-25) mmol/L ABG O2 Saturation (94-97) % Chloride (98-107) mmol/L Carbon Dioxide (22-30) mmol/L BUN (7-17) mg/dL Creatinine (0.52-1.04) mg/dL Glucose (74-99) mg/dL POC Glucose (mg/dL) 126 H 117 H (75-99) mg/dL Alkaline Phosphatase (38-126) U/L Total Protein (6.3-8.2) g/dL Albumin (3.5-5.0) g/dL 08/17/18 08/17/18 08/17/18 Range/Units 04:20 04:40 06:10 WBC (3.8-10.6) k/uL RBC (3.80-5.40) m/uL Hgb (11.4-16.0) gm/dL Hct (34.0-46.0) % MCHC (31.0-37.0) g/dL RDW (11.5-15.5) % Plt Count (150-450) k/uL Neutrophils # (1.3-7.7) k/uL Lymphocytes # (1.0-4.8) k/uL ABG pH (7.35-7.45) ABG pCO2 (35-45) mmHg ABG HCO3 (21-25) mmol/L ABG O2 Saturation (94-97) % Chloride 110 H (98-107) mmol/L Carbon Dioxide 18 L (22-30) mmol/L BUN 70 H (7-17) mg/dL Creatinine 1.34 H (0.52-1.04) mg/dL Glucose 128 H (74-99) mg/dL POC Glucose (mg/dL) 138 H 130 H (75-99) mg/dL Alkaline Phosphatase 138 H (38-126) U/L Total Protein 5.0 L (6.3-8.2) g/dL Albumin 2.2 L (3.5-5.0) g/dL 08/17/18 08/17/18 Range/Units 07:48 08:38 WBC (3.8-10.6) k/uL RBC (3.80-5.40) m/uL Hgb (11.4-16.0) gm/dL Hct (34.0-46.0) % MCHC (31.0-37.0) g/dL RDW (11.5-15.5) % Plt Count (150-450) k/uL Neutrophils # (1.3-7.7) k/uL Lymphocytes # (1.0-4.8) k/uL ABG pH 7.18 L* (7.35-7.45) ABG pCO2 51 H (35-45) mmHg ABG HCO3 19 L (21-25) mmol/L ABG O2 Saturation 97.1 H (94-97) % Chloride (98-107) mmol/L Carbon Dioxide (22-30) mmol/L BUN (7-17) mg/dL Creatinine (0.52-1.04) mg/dL Glucose (74-99) mg/dL POC Glucose (mg/dL) 135 H (75-99) mg/dL Alkaline Phosphatase (38-126) U/L Total Protein (6.3-8.2) g/dL Albumin (3.5-5.0) g/dL Microbiology - Last 24 Hours (Table) 08/10/18 18:30 Blood Culture - Final Blood No Growth after 144 hours 08/13/18 14:50 Blood Culture - Preliminary Blood No Growth after 72 hours Assessment and Plan (1) Abdominal pain Current Visit: Yes Status: Acute Code(s): R10.9 - UNSPECIFIED ABDOMINAL PAIN SNOMED Code(s): 63206430 (2) Decreased oral intake Current Visit: Yes Status: Acute Code(s): R63.8 - OTHER SYMPTOMS AND SIGNS CONCERNING FOOD AND FLUID INTAKE SNOMED Code(s): 593110312 (3) Colonic diverticular abscess Current Visit: Yes Status: Acute Code(s): K57.20 - DVTRCLI OF LG INT W PERFORATION AND ABSCESS W/O BLEEDING SNOMED Code(s): 713382451 (4) Partial bowel obstruction Current Visit: Yes Status: Acute Code(s): K56.600 - PARTIAL INTESTINAL OBSTRUCTION, UNSPECIFIED TO CAUSE SNOMED Code(s): 25370313 <Brian Fang - Last Filed: 08/17/18 14:37> Subjective As above. Covering for Dr. Jacobson today. Patient remains acidotic. White blood cell count improved. Appears comfortable on the ventilator currently. Continue broad-spectrum antibiotics. Continue local wound care. Objective - Vital Signs Vital signs: Vital Signs Temp 97.5 F L 08/17/18 04:00 Pulse 90 08/17/18 14:00 Resp 39 H 08/17/18 14:00 BP 97/56 08/14/18 17:00 Pulse Ox 94 L 08/17/18 14:00 Intake & Output 08/16/18 08/17/18 08/17/18 18:59 06:59 18:59 Intake Total 2514.597 8802.649 5950.25 Output Total 330 755 579 Balance 2184.597 522.541 975.25 Weight 79.6 kg 79.6 kg Intake: IV 1056 904 480 Anidulafungin 100 mg In 130 130 Sodium Chloride 0.9% 100 ml @ 84 mls/hr IVPB DAILY [facility] Rx#:[id number] Mvi, Adult No.4 with Vit 450 585 K 10 ml Trace (Conc-1Ml/ Dose) 1 ml Potassium Chloride 40 meq Calcium Gluconate 1 gm Magnesium Sulfate gm 0.5 gm Potassium Acetate 10 meq In Amino Acid 5%-D15w 1, 000 ml @ 45 mls/hr IV . [id number] [facility] Rx#:[id number] Piperacillin-Tazobactam 3 200 100 100 .375 gm In Sodium Chloride 0.9% 100 ml @ 25 mls/hr IVPB Q8HR [facility] Rx# :[id number] Pressure bag 36 39 Sodium Chloride 0.45% 1, 240 180 250 000 ml @ 50 mls/hr IV . Q20H [facility] Rx#:[id number] Intake, IV Titration 1458.597 198.175 0204.25 Amount Albumin Human 25% 50 ml 50 In Empty Bag 1 bag @ 50 mls/hr IVPB ONCE ONE Rx#: [id number] Cisatracurium 200 mg In 40.697 Sodium Chloride 0.9% 180 ml @ 1 MCG/KG/MIN 4.66 mls/hr IV .Q24H [facility] Rx#: [id number] Insulin Regular 100 unit 30.633 16.775 In Sodium Chloride 0.9% 100 ml @ Per Protocol IV .Q0M [facility] Rx#:[id number] Lactated Ringers 1,000 ml 1000 @ 999 mls/hr IV .Q1H1M [facility] Rx#:[id number] Mvi, Adult No.4 with Vit 974.25 K 10 ml Trace (Conc-1Ml/ Dose) 1 ml Calcium Gluconate 1 gm Magnesium Sulfate gm 0.5 gm Sodium Acetate 20 meq In Amino Acid 5%-D15w 1,000 ml @ 45 mls/hr IV .[id number] [facility] Rx#:[id number] Norepinephrine 32 mg In 67.795 8.876 Sodium Chloride 0.9% 218 ml @ 0.05 MCG/KG/MIN 1.82 mls/hr IV .Q24H [facility] Rx#: [id number] Norepinephrine 32 mg In 20.076 Sodium Chloride 0.9% 250 ml @ 0.1 MCG/KG/MIN 4.28 mls/hr IV .Q24H [facility] Rx#: [id number] Propofol 1,000 mg In 299.396 197.89 100 Empty Bag 1 bag @ Titrate IV .Q0M [facility] Rx#: [id number] fentaNYL (PF) 1,000 mcg 100 In Sodium Chloride 0.9% 80 ml @ 0.62 MCG/KG/HR 5. 02 mls/hr IV .[id number] [facility] Rx#:[id number] Output: Gastric Drainage 100 Drainage 30 20 60 Right Abdomen 30 20 60 Urine 200 235 219 Stool 100 400 300 Other: Voiding Method Indwelling Catheter Indwelling Catheter Indwelling Catheter # Voids 2 ABP, PAP, CO, CI - Last Documented Arterial Blood Pressure 142/49 - Labs CBC & Chem 7: 08/17/18 04:20 08/17/18 04:20 Labs: Abnormal Lab Results - Last 24 Hours (Table) 08/16/18 08/16/18 08/16/18 Range/Units 15:50 17:17 18:19 WBC (3.8-10.6) k/uL RBC (3.80-5.40) m/uL Hgb (11.4-16.0) gm/dL Hct (34.0-46.0) % MCHC (31.0-37.0) g/dL RDW (11.5-15.5) % Plt Count (150-450) k/uL Neutrophils # (1.3-7.7) k/uL Lymphocytes # (1.0-4.8) k/uL ABG pH (7.35-7.45) ABG pCO2 (35-45) mmHg ABG HCO3 (21-25) mmol/L ABG O2 Saturation (94-97) % Chloride (98-107) mmol/L Carbon Dioxide (22-30) mmol/L BUN (7-17) mg/dL Creatinine (0.52-1.04) mg/dL Glucose (74-99) mg/dL POC Glucose (mg/dL) 139 H 137 H 128 H (75-99) mg/dL Alkaline Phosphatase (38-126) U/L Total Protein (6.3-8.2) g/dL Albumin (3.5-5.0) g/dL 08/16/18 08/16/18 08/16/18 Range/Units 20:17 22:16 23:59 WBC (3.8-10.6) k/uL RBC (3.80-5.40) m/uL Hgb (11.4-16.0) gm/dL Hct (34.0-46.0) % MCHC (31.0-37.0) g/dL RDW (11.5-15.5) % Plt Count (150-450) k/uL Neutrophils # (1.3-7.7) k/uL Lymphocytes # (1.0-4.8) k/uL ABG pH (7.35-7.45) ABG pCO2 (35-45) mmHg ABG HCO3 (21-25) mmol/L ABG O2 Saturation (94-97) % Chloride (98-107) mmol/L Carbon Dioxide (22-30) mmol/L BUN (7-17) mg/dL Creatinine (0.52-1.04) mg/dL Glucose (74-99) mg/dL POC Glucose (mg/dL) 128 H 125 H 126 H (75-99) mg/dL Alkaline Phosphatase (38-126) U/L Total Protein (6.3-8.2) g/dL Albumin (3.5-5.0) g/dL 08/17/18 08/17/18 08/17/18 Range/Units 02:24 04:20 04:20 WBC 12.0 H (3.8-10.6) k/uL RBC 2.52 L (3.80-5.40) m/uL Hgb 7.4 L (11.4-16.0) gm/dL Hct 24.8 L (34.0-46.0) % MCHC 29.7 L (31.0-37.0) g/dL RDW 19.3 H (11.5-15.5) % Plt Count 59 L (150-450) k/uL Neutrophils # 10.7 H (1.3-7.7) k/uL Lymphocytes # 0.8 L (1.0-4.8) k/uL ABG pH (7.35-7.45) ABG pCO2 (35-45) mmHg ABG HCO3 (21-25) mmol/L ABG O2 Saturation (94-97) % Chloride 110 H (98-107) mmol/L Carbon Dioxide 18 L (22-30) mmol/L BUN 70 H (7-17) mg/dL Creatinine 1.34 H (0.52-1.04) mg/dL Glucose 128 H (74-99) mg/dL POC Glucose (mg/dL) 117 H (75-99) mg/dL Alkaline Phosphatase 138 H (38-126) U/L Total Protein 5.0 L (6.3-8.2) g/dL Albumin 2.2 L (3.5-5.0) g/dL 08/17/18 08/17/18 08/17/18 Range/Units 04:40 06:10 07:48 WBC (3.8-10.6) k/uL RBC (3.80-5.40) m/uL Hgb (11.4-16.0) gm/dL Hct (34.0-46.0) % MCHC (31.0-37.0) g/dL RDW (11.5-15.5) % Plt Count (150-450) k/uL Neutrophils # (1.3-7.7) k/uL Lymphocytes # (1.0-4.8) k/uL ABG pH 7.18 L* (7.35-7.45) ABG pCO2 51 H (35-45) mmHg ABG HCO3 19 L (21-25) mmol/L ABG O2 Saturation 97.1 H (94-97) % Chloride (98-107) mmol/L Carbon Dioxide (22-30) mmol/L BUN (7-17) mg/dL Creatinine (0.52-1.04) mg/dL Glucose (74-99) mg/dL POC Glucose (mg/dL) 138 H 130 H (75-99) mg/dL Alkaline Phosphatase (38-126) U/L Total Protein (6.3-8.2) g/dL Albumin (3.5-5.0) g/dL 08/17/18 08/17/18 08/17/18 Range/Units 08:38 10:41 14:20 WBC (3.8-10.6) k/uL RBC (3.80-5.40) m/uL Hgb (11.4-16.0) gm/dL Hct (34.0-46.0) % MCHC (31.0-37.0) g/dL RDW (11.5-15.5) % Plt Count (150-450) k/uL Neutrophils # (1.3-7.7) k/uL Lymphocytes # (1.0-4.8) k/uL ABG pH (7.35-7.45) ABG pCO2 (35-45) mmHg ABG HCO3 (21-25) mmol/L ABG O2 Saturation (94-97) % Chloride (98-107) mmol/L Carbon Dioxide (22-30) mmol/L BUN (7-17) mg/dL Creatinine (0.52-1.04) mg/dL Glucose (74-99) mg/dL POC Glucose (mg/dL) 135 H 143 H 165 H (75-99) mg/dL Alkaline Phosphatase (38-126) U/L Total Protein (6.3-8.2) g/dL Albumin (3.5-5.0) g/dL Microbiology - Last 24 Hours (Table) 08/10/18 18:30 Blood Culture - Final Blood No Growth after 144 hours 08/13/18 14:50 Blood Culture - Preliminary Blood No Growth after 72 hours
[2018-08-17 10:44] LABS: Glucose,Whole Blood 143 mg/dL (75-99)
[2018-08-17 11:20] VITALS: BMI 35.4
--- NOTE | 2018-08-17 11:32 | P.PN ---
Subjective Progress Note Date: 08/17/18 Principal diagnosis: Acute hypoxic respiratory failure secondary to ARDS, and abdominal sepsis. Patient was reevaluated today on 08/14/2018, remains on mechanical ventilation, she remains on relatively high PEEP of 12, and high FiO2 of 65% with marginal O2 saturation. O2 saturation was 93% at best. ABG could not be done this morning, the right radial arterial line was nonfunctional and it was removed. And she had issues related to her left radial arterial line which was discontinued because of ischemic changes of the left thumb. Patient remains on assist control rate of 30 tidal volume of 350 PEEP of 12 and FiO2 of 65%. Remains on fentanyl roughly about 50 mcg/m, insulin drip at 4.5 units per hour, and propofol drip at 40 mcg/kg/m. Considering the patient is still requiring high FiO2 and high PEEP, and she seems to be a bit tachypneic, I went ahead and recommended that the patient gets to be placed on Nimbex. She is scheduled to undergo tracheostomy today. Chest x-ray showed significant bilateral interstitial changes consistent with ARDS, significant subcutaneous emphysema is noted, no evidence of pneumothorax, and no evidence of pneumomediastinum. Fortunately, the patient is not requiring any pressors at this point. Urine output seems to be adequate, the pressure is adequate. She does have a net positive fluid balance. There is however significant amount of seepage noted from the skin surfaces specially skin of lower extremities. Colostomy is nonfunctional ileostomy is functioning. Patient remains on TPN. Necrotic left stump remains about the same. Patient was reevaluated today on 08/15/2018, she underwent tracheostomy yesterday. Postoperative ABG was poor, hence she was placed back on 100% FiO2 overnight, PEEP remains at 12, her gases this morning showed significant improvement, hence I was able to cut down the FiO2 to 55%, and I increased the PEEP to 15. Follow-up ABG this morning showed a pO2 of 98, pCO2 of 74 pH of 7.13. CBC is showing leukocytosis again with WBC count of 23.5, hemoglobin is 10. Platelets are 118,000. Basic metabolic profile is normal, renal profile showed a BUN of 48 creatinine of 0.75. Patient is now on multiple drips including propofol, 40 mcg/kg/m, fentanyl at 25 mcg/h, norepinephrine at 3.5 mcg /m. She is also on Nimbex drip. Titrated as per protocol. Her ventilator settings this morning were adjusted, she is presently on assist control rate of 56. Tidal volume of 350, FiO2 is 55%, and PEEP is 15. Chest x-ray continues to show diffuse bilateral interstitial infiltrates and airspace disease. No evidence of pneumothorax, and no evidence of pneumomediastinum. Recent blood cultures from 08/13/2018 remain negative. And urine cultures have been negative since 08/09/2018. Patient remains on DuoNeb updrafts,anidulafungin, Solu-Cortef which I will cut down to 50 mg every 8 hours, Zosyn, and vancomycin. Patient was reevaluated in the ICU again today on 08/16/2018. Patient remains on mechanical ventilation via tracheostomy. Remains on the same ventilator settings which are FiO2 of 50%, tidal volume of 350 assist-control rate is 36 PEEP remains high at 15. ABG this morning was marginal pO2 was noted to be 64 pCO2 is 56 pH of 7.19. Patient remains on multiple drips including propofol at 50 mcg/kg/m, Nimbex 1 mcg/kg/m which I plan to hold today fentanyl at 0.67 mcg/ kg/h and she is on norepinephrine at 0.08 mcg/kg/m. Urine output is marginal at best, patient is quite swollen and edematous, but I believe she is intravascularly depleted. Did not respond to albumin infusions followed by Lasix yesterday, hence I will give the patient fluids today, and hopefully will improve her urine output and bit more. May even consider a sodium bicarb drip, although the acidosis is mostly respiratory in nature, does have some metabolic component and that is believed to be related to her sepsis and hypoperfusion. Chest x-ray is basically the same continues to show bilateral infiltrates consistent with ARDS. Airway mechanics were reviewed, her peak airway pressure is in the low 40s, and her plateau pressures are in the range of 33-36. Patient remains sedated and paralyzed. I'm hoping I could get her off the Nimbex today, but considering patient is still requiring high PEEP, may not be able to tolerate coming off Nimbex easily. Patient remains on broad-spectrum antibiotics as per infectious disease on the case. All meds were reviewed, chest x-ray was reviewed as noted above. And labs were all reviewed and as noted above. Reevaluated today on 08/17/2018, remains in the intensive care unit, mechanically ventilated, remains on multiple drips, her ventilator settings are assist control rate of 36 tidal volume of 350 FiO2 of 55% PEEP is down to 10. ABG this morning showed a pO2 of 94 pCO2 of 51 pH of 7.18 which is basically a combined respiratory and metabolic acidosis. Hence I recommended starting the patient on a bicarb drip. I have also recommended cutting down the PEEP down to 10 and the FiO2 is 55% today. Chest x-ray continues to show bilateral interstitial infiltrates consistent with ARDS. Patient remains on propofol at 50 mcg/kg/m, fentanyl at 0.67 mcg/kg/m, he is also on insulin drip at 1.5 units per hour. Patient is off pressors, and off Nimbex. Continues to have relatively high peak airway pressures and plateau pressures. Consistent with ARDS/stiff lungs. Renal functioning has been worsening patient did receive albumin and Lasix last night, and did not improve much. Hence I have recommended today that we go back on a higher dose of fluids, she will be given 50 ML per hour, Lasix will be discontinued, and the sodium bicarb drip at 50 MLS per hour was also started. Patient is also receiving TPN. CBC showed WBC count of 12 hemoglobin of 7.4, at least secondary to count seems to be improving. BUN today is up to 70 creatinine is 1.34. Patient is quite edematous, she is third spacing, but I believe she is intravascularly depleted. Albumin and Lasix did not help much. Hence we'll try fluids only today. No albumin and no diuretics. Remains on multiple antibiotics including vancomycin , Zosyn and eraxix remains on TPN Objective - Vital Signs Vital signs: Vital Signs Temp 97.5 F L 08/17/18 04:00 Pulse 92 08/17/18 11:00 Resp 36 H 08/17/18 11:00 BP 97/56 08/14/18 17:00 Pulse Ox 95 08/17/18 11:00 Intake & Output 08/16/18 08/17/18 08/17/18 18:59 06:59 18:59 Intake Total 2514.597 7570.658 0868.25 Output Total 330 755 249 Balance 2184.597 815.205 8433.25 Weight 79.6 kg Intake: IV 1056 904 380 Anidulafungin 100 mg In 130 130 Sodium Chloride 0.9% 100 ml @ 84 mls/hr IVPB DAILY [facility] Rx#:[id number] Mvi, Adult No.4 with Vit 450 585 K 10 ml Trace (Conc-1Ml/ Dose) 1 ml Potassium Chloride 40 meq Calcium Gluconate 1 gm Magnesium Sulfate gm 0.5 gm Potassium Acetate 10 meq In Amino Acid 5%-D15w 1, 000 ml @ 45 mls/hr IV . [id number] [facility] Rx#:[id number] Piperacillin-Tazobactam 3 200 100 100 .375 gm In Sodium Chloride 0.9% 100 ml @ 25 mls/hr IVPB Q8HR [facility] Rx# :[id number] Pressure bag 36 39 Sodium Chloride 0.45% 1, 240 180 150 000 ml @ 50 mls/hr IV . Q20H [facility] Rx#:[id number] Intake, IV Titration 1458.597 373.541 974.25 Amount Albumin Human 25% 50 ml 50 In Empty Bag 1 bag @ 50 mls/hr IVPB ONCE ONE Rx#: [id number] Cisatracurium 200 mg In 40.697 Sodium Chloride 0.9% 180 ml @ 1 MCG/KG/MIN 4.66 mls/hr IV .Q24H [facility] Rx#: [id number] Insulin Regular 100 unit 30.633 16.775 In Sodium Chloride 0.9% 100 ml @ Per Protocol IV .Q0M [facility] Rx#:[id number] Lactated Ringers 1,000 ml 1000 @ 999 mls/hr IV .Q1H1M [facility] Rx#:[id number] Mvi, Adult No.4 with Vit 974.25 K 10 ml Trace (Conc-1Ml/ Dose) 1 ml Calcium Gluconate 1 gm Magnesium Sulfate gm 0.5 gm Sodium Acetate 20 meq In Amino Acid 5%-D15w 1,000 ml @ 45 mls/hr IV .[id number] [facility] Rx#:[id number] Norepinephrine 32 mg In 67.795 8.876 Sodium Chloride 0.9% 218 ml @ 0.05 MCG/KG/MIN 1.82 mls/hr IV .Q24H [facility] Rx#: [id number] Norepinephrine 32 mg In 20.076 Sodium Chloride 0.9% 250 ml @ 0.1 MCG/KG/MIN 4.28 mls/hr IV .Q24H [facility] Rx#: [id number] Propofol 1,000 mg In 299.396 197.89 Empty Bag 1 bag @ Titrate IV .Q0M [facility] Rx#: [id number] fentaNYL (PF) 1,000 mcg 100 In Sodium Chloride 0.9% 80 ml @ 0.62 MCG/KG/HR 5. 02 mls/hr IV .[id number] [facility] Rx#:[id number] Output: Gastric Drainage 100 Drainage 30 20 40 Right Abdomen 30 20 40 Urine 200 235 109 Stool 100 400 100 Other: Voiding Method Indwelling Catheter Indwelling Catheter Indwelling Catheter # Voids 2 ABP, PAP, CO, CI - Last Documented Arterial Blood Pressure 136/48 - Exam Physical Exam: Revealed a 58-year-old female on mechanical ventilation, fully sedated not paralyzed Head: Atraumatic, normocephalic. Some eid HEENT:[Neck is supple.] [No neck masses.] [No thyromegaly.] [No JVD.] PERRLA, EOMI, no icterus. Dry mucous membranes were noted. Chest: Good breath sound bilaterally, no crackles or rhonchi or wheezes. symmetrical chest expansion was noted. Subcutaneous emphysema noted in the anterior chest wall. Cardiac Exam: [Normal S1 and S2, no S3 gallop, no murmur.] Abdomen: [Abdominal wound, remains open, colostomy and ileostomy tubes were noted. Dark material noted in both legs. Abdominal wall is swollen and edematous. Bowel sounds are hypoactive. Necrosis of the subcutaneous tissue along the wound borders noted bilaterally. Neurological Exam: Cannot be assessed sedated Psychiatric: Cannot be assessed. Skin/extremities. Evidence of poor perfusion to the tips of the fingers in both hands however more pronounced in the left thumb area with ischemic changes and necrosis. Tips of the other fingers in the right hand are also noted to show some dark discoloration at the tips mostly. significant edema noted in both lower extremities. And both are seeping serous drainage. - Labs CBC & Chem 7: 08/17/18 04:20 08/17/18 04:20 Labs: Abnormal Lab Results - Last 24 Hours (Table) 08/16/18 08/16/18 08/16/18 Range/Units 11:14 12:14 13:35 WBC (3.8-10.6) k/uL RBC (3.80-5.40) m/uL Hgb (11.4-16.0) gm/dL Hct (34.0-46.0) % MCHC (31.0-37.0) g/dL RDW (11.5-15.5) % Plt Count (150-450) k/uL Neutrophils # (1.3-7.7) k/uL Lymphocytes # (1.0-4.8) k/uL ABG pH (7.35-7.45) ABG pCO2 (35-45) mmHg ABG HCO3 (21-25) mmol/L ABG O2 Saturation (94-97) % Chloride (98-107) mmol/L Carbon Dioxide (22-30) mmol/L BUN (7-17) mg/dL Creatinine (0.52-1.04) mg/dL Glucose (74-99) mg/dL POC Glucose (mg/dL) 162 H 152 H 149 H (75-99) mg/dL Alkaline Phosphatase (38-126) U/L Total Protein (6.3-8.2) g/dL Albumin (3.5-5.0) g/dL 08/16/18 08/16/18 08/16/18 Range/Units 14:08 15:50 17:17 WBC (3.8-10.6) k/uL RBC (3.80-5.40) m/uL Hgb (11.4-16.0) gm/dL Hct (34.0-46.0) % MCHC (31.0-37.0) g/dL RDW (11.5-15.5) % Plt Count (150-450) k/uL Neutrophils # (1.3-7.7) k/uL Lymphocytes # (1.0-4.8) k/uL ABG pH (7.35-7.45) ABG pCO2 (35-45) mmHg ABG HCO3 (21-25) mmol/L ABG O2 Saturation (94-97) % Chloride (98-107) mmol/L Carbon Dioxide (22-30) mmol/L BUN (7-17) mg/dL Creatinine (0.52-1.04) mg/dL Glucose (74-99) mg/dL POC Glucose (mg/dL) 139 H 139 H 137 H (75-99) mg/dL Alkaline Phosphatase (38-126) U/L Total Protein (6.3-8.2) g/dL Albumin (3.5-5.0) g/dL 08/16/18 08/16/18 08/16/18 Range/Units 18:19 20:17 22:16 WBC (3.8-10.6) k/uL RBC (3.80-5.40) m/uL Hgb (11.4-16.0) gm/dL Hct (34.0-46.0) % MCHC (31.0-37.0) g/dL RDW (11.5-15.5) % Plt Count (150-450) k/uL Neutrophils # (1.3-7.7) k/uL Lymphocytes # (1.0-4.8) k/uL ABG pH (7.35-7.45) ABG pCO2 (35-45) mmHg ABG HCO3 (21-25) mmol/L ABG O2 Saturation (94-97) % Chloride (98-107) mmol/L Carbon Dioxide (22-30) mmol/L BUN (7-17) mg/dL Creatinine (0.52-1.04) mg/dL Glucose (74-99) mg/dL POC Glucose (mg/dL) 128 H 128 H 125 H (75-99) mg/dL Alkaline Phosphatase (38-126) U/L Total Protein (6.3-8.2) g/dL Albumin (3.5-5.0) g/dL 08/16/18 08/17/18 08/17/18 Range/Units 23:59 02:24 04:20 WBC 12.0 H (3.8-10.6) k/uL RBC 2.52 L (3.80-5.40) m/uL Hgb 7.4 L (11.4-16.0) gm/dL Hct 24.8 L (34.0-46.0) % MCHC 29.7 L (31.0-37.0) g/dL RDW 19.3 H (11.5-15.5) % Plt Count 59 L (150-450) k/uL Neutrophils # 10.7 H (1.3-7.7) k/uL Lymphocytes # 0.8 L (1.0-4.8) k/uL ABG pH (7.35-7.45) ABG pCO2 (35-45) mmHg ABG HCO3 (21-25) mmol/L ABG O2 Saturation (94-97) % Chloride (98-107) mmol/L Carbon Dioxide (22-30) mmol/L BUN (7-17) mg/dL Creatinine (0.52-1.04) mg/dL Glucose (74-99) mg/dL POC Glucose (mg/dL) 126 H 117 H (75-99) mg/dL Alkaline Phosphatase (38-126) U/L Total Protein (6.3-8.2) g/dL Albumin (3.5-5.0) g/dL 08/17/18 08/17/18 08/17/18 Range/Units 04:20 04:40 06:10 WBC (3.8-10.6) k/uL RBC (3.80-5.40) m/uL Hgb (11.4-16.0) gm/dL Hct (34.0-46.0) % MCHC (31.0-37.0) g/dL RDW (11.5-15.5) % Plt Count (150-450) k/uL Neutrophils # (1.3-7.7) k/uL Lymphocytes # (1.0-4.8) k/uL ABG pH (7.35-7.45) ABG pCO2 (35-45) mmHg ABG HCO3 (21-25) mmol/L ABG O2 Saturation (94-97) % Chloride 110 H (98-107) mmol/L Carbon Dioxide 18 L (22-30) mmol/L BUN 70 H (7-17) mg/dL Creatinine 1.34 H (0.52-1.04) mg/dL Glucose 128 H (74-99) mg/dL POC Glucose (mg/dL) 138 H 130 H (75-99) mg/dL Alkaline Phosphatase 138 H (38-126) U/L Total Protein 5.0 L (6.3-8.2) g/dL Albumin 2.2 L (3.5-5.0) g/dL 0208/17/18 08/17/18 Range/Units 07:48 08:38 10:41 WBC (3.8-10.6) k/uL RBC (3.80-5.40) m/uL Hgb (11.4-16.0) gm/dL Hct (34.0-46.0) % MCHC (31.0-37.0) g/dL RDW (11.5-15.5) % Plt Count (150-450) k/uL Neutrophils # (1.3-7.7) k/uL Lymphocytes # (1.0-4.8) k/uL ABG pH 7.18 L* (7.35-7.45) ABG pCO2 51 H (35-45) mmHg ABG HCO3 19 L (21-25) mmol/L ABG O2 Saturation 97.1 H (94-97) % Chloride (98-107) mmol/L Carbon Dioxide (22-30) mmol/L BUN (7-17) mg/dL Creatinine (0.52-1.04) mg/dL Glucose (74-99) mg/dL POC Glucose (mg/dL) 135 H 143 H (75-99) mg/dL Alkaline Phosphatase (38-126) U/L Total Protein (6.3-8.2) g/dL Albumin (3.5-5.0) g/dL Microbiology - Last 24 Hours (Table) 08/10/18 18:30 Blood Culture - Final Blood No Growth after 144 hours 08/13/18 14:50 Blood Culture - Preliminary Blood No Growth after 72 hours Assessment and Plan Assessment: Impression: Acute hypoxic respiratory failure secondary to ARDS secondary to abdominal sepsis. 2 complicated diverticular abscess with bowel perforation, status post exploratory laparotomy and sigmoid colectomy and ostomy appendectomy postoperative day # 18 3 status post repeat exploratory laparotomy and small bowel resection and abscess drainage and diverting ileostomy postoperative day # 9 4 acute septic shock secondary to intra-abdominal abscess 5 excessive volume overload and hypoalbuminemia contributing to significant swelling and third spacing with significant bipedal edema. Patient is intravascularly depleted. Did not respond to albumin and Lasix infusions. We will hold Lasix and give more fluids today. 6 open wound/abdominal wound with necrosis of the wound surfaces status post debridement. 7 extensive subcutaneous emphysema probably from pneumomediastinum and status post horizontal incision made in the skin and fascia to allow drainage of subcutaneous air. 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 We'll cut down the dose to 50 mg IV push every 8 hours. 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 May require surgical resection. 11 status post tracheostomy, postoperative day # 3 12 acute kidney injury secondary to acute tubular necrosis. And sepsis. And the patient is also intravascularly depleted contributing to her acute kidney injury. Recommendation: Continue present supportive care measures, continue ventilatory support, nutritional support,/TPN. Continue GI and DVT prophylaxis. PEEP was cut down to 10 and FiO2 was placed at 55% today. patient is not ready for any weaning trials. I believe her prognosis is extremely poor, and chances of pulling through this is less than 5%. was updated again on her condition. Today I went ahead and started the patient on more fluids, started a sodium bicarb drip, changed PEEP down to 10, continue present antibiotics, antifungal therapy, and if the patient continues to do well may consider daily sedation interruption and weaning trials of possible. Hopefully the patient will tolerate lower PEEP and continues to oxygenate well on a lower PEEP. Then there will be no need to use any Nimbex and maybe could cut down on the sedation. Patient remains extremely ill, critical care time is 45 minutes Time with Patient: Greater than 30
[2018-08-17 14:24] LABS: Glucose,Whole Blood 165 mg/dL (75-99)
[2018-08-17 16:10] LABS: Glucose,Whole Blood 169 mg/dL (75-99)
[2018-08-17] MEDS: NOREPINEPHRINE 32 MG in SODIUM CHLORIDE 0.9% 218 ML IV SCH (16:22)
[2018-08-17] MEDS: fentaNYL (PF) 1,000 MCG in SODIUM CHLORIDE 0.9% 80 ML IV SCH (16:22)
[2018-08-17 17:54] LABS: Glucose,Whole Blood 178 mg/dL (75-99)
--- NOTE | 2018-08-17 19:59 | P.PN ---
Subjective Progress Note Date: 08/17/18 (delayed charting patient seen at 0845) Principal diagnosis: abdominal pain Patient is a 58-year-old female with no significant past medical history o who presented to the emergency department at the recommendations of her PCP for dehydration, nausea, and vomiting. In the emergency department she underwent an extensive evaluation. Computed tomography scan of the abdomen showed diverticular abscess with partial bowel obstruction she was admitted for further management. Initial laboratory analysis showed a sodium of 132, carbon dioxide 21, and a negative urinalysis. She was started on IV fluids, antibiotics and was admitted. General surgery was consulted. Patient initially wanted conservative management did not want surgery. Interventional radiology was consulted and she underwent abscess ranges placement of percutaneous drain on 07/28/18. She was found to have an elevated PTT and hematology was consulted. They felt that this was likely due to poor nutritional intake and ordered additional vitamin K. Her PT INR normalized with additional vitamin K. She was seen by ID who discontinue meropenem and started her on Zosyn. She had initially been progressing well. Overnight on she developed increasing pain and nausea. She started requiring IV narcotics for treatment of her pain. She then became tachycardic. Morning blood work on 07/30 showed a depressed white blood cell count at 2.5, and carbon dioxide of 12. Stat CT with IV contrast as well as a stat lactic acid and a [address] abdomen and pelvis showed free air. Case discussed with Dr. Jacobson and patient was taken urgently to the operating room for ex-lap due to perforated viscus. During the procedure, the patient was noted to have fecal peritonitis and underwent a sigmoid colectomy with end colostomy. She was transferred to the ICU post-operatively and was started on IV pressors. The patient was extubated on 07/31/18. However, she continued to require Levophed. ID recommended the patient to be switched to Unasyn and Flagyl. A random cortisol level was drawn and was 22, for which patient was started on hydrocortisone for suspected adrenal insufficiency. On 08/02 the patient developed respiratory distress and was re-intubated. She was also noted to have L thumb discoloration with history of art line placement on that wrist. Vascular surgery was consulted and did not recommend urgent surgical intervention. Her pressors were able to taken off momentarily on 08/06 but required to be restarted on 08/07. She had a dusky appearance to the wound edges and was taken back to the OR on 08/09 and underwent small bowel resection with abdominal wound debridement. Patient seen and examined at bedside. Sedated on vent. O2 needs decreasing over the last 24 hours. Off levophed over night. Unable to wean sedation. Objective - Vital Signs Vital signs: Vital Signs Temp 97.5 F L 08/17/18 04:00 Pulse 92 08/17/18 19:00 Resp 36 H 08/17/18 19:00 BP 97/56 08/14/18 17:00 Pulse Ox 91 L 08/17/18 19:00 Intake & Output 08/17/18 08/17/18 08/18/18 06:59 18:59 06:59 Intake Total 5992.867 7999.451 92.796 Output Total 755 944 40 Balance 053.649 2178.451 52.796 Weight 79.6 kg 79.6 kg Intake: IV 904 730 50 Anidulafungin 100 mg In 130 Sodium Chloride 0.9% 100 ml @ 84 mls/hr IVPB DAILY JESSICA Rx#:[id number] Mvi, Adult No.4 with Vit 585 K 10 ml Trace (Conc-1Ml/ Dose) 1 ml Potassium Chloride 40 meq Calcium Gluconate 1 gm Magnesium Sulfate gm 0.5 gm Potassium Acetate 10 meq In Amino Acid 5%-D15w 1, 000 ml @ 45 mls/hr IV . [id number] JESSICA Rx#:[id number] Piperacillin-Tazobactam 3 100 200 .375 gm In Sodium Chloride 0.9% 100 ml @ 25 mls/hr IVPB Q8HR JESSICA Rx# :[id number] Pressure bag 39 Sodium Chloride 0.45% 1, 180 400 50 000 ml @ 50 mls/hr IV . Q20H JESSICA Rx#:[id number] Intake, IV Titration 100.283 8300.451 42.796 Amount Albumin Human 25% 50 ml 50 In Empty Bag 1 bag @ 50 mls/hr IVPB ONCE ONE Rx#: [id number] Insulin Regular 100 unit 16.775 26.75 In Sodium Chloride 0.9% 100 ml @ Per Protocol IV .Q0M JESSICA Rx#:[id number] Mvi, Adult No.4 with Vit 974.25 K 10 ml Trace (Conc-1Ml/ Dose) 1 ml Calcium Gluconate 1 gm Magnesium Sulfate gm 0.5 gm Sodium Acetate 20 meq In Amino Acid 5%-D15w 1,000 ml @ 45 mls/hr IV .[id number] JESSICA Rx#:[id number] Norepinephrine 32 mg In 8.876 Sodium Chloride 0.9% 218 ml @ 0.05 MCG/KG/MIN 1.82 mls/hr IV .Q24H JESSICA Rx#: [id number] Propofol 1,000 mg In 197.89 200 1.99 Empty Bag 1 bag @ Titrate IV .Q0M JESSICA Rx#: [id number] fentaNYL (PF) 1,000 mcg 100 92.201 14.056 In Sodium Chloride 0.9% 80 ml @ 0.62 MCG/KG/HR 5. 02 mls/hr IV .[id number] JESSICA Rx#:[id number] Lipid 0 Sodium Chloride 0.45% 1, 0 000 ml @ 50 mls/hr IV . Q20H JESSICA Rx#:[id number] Output: Gastric Drainage 100 Drainage 20 100 Right Abdomen 20 100 Urine 235 344 40 Stool 400 500 Other: Voiding Method Indwelling Catheter Indwelling Catheter # Voids 2 ABP, PAP, CO, CI - Last Documented Arterial Blood Pressure 132/49 - Exam General: ill appearing, sedated on vent, no distress, appears at stated age Derm: cool, dry, left thumb dusky no skin sloughing, dusky appearance all finger tips right hand. Head: atraumatic, normocephalic, symmetric Eyes: PERRL, no lid lesion anicteric sclera Mouth: no lip lesion, mucus membranes moist Cardiovascular: S1S2 tachy, no murmur, positive posterior tibial pulse bilateral , anarsarca Lungs: course bs bilateral, no accessory muscle use, on vent with trach Abdominal: soft, nontender to palpation through sedation, no guarding, no appreciable organomegaly, dressing with moderate soak through, + ostomy X 2. Ext: no gross muscle atrophy, diffuse anasarca with blisters, no contractures Neuro: no withdrawal to pain but currently on sedation. Psych:sedated on vent - Labs CBC & Chem 7: 08/17/18 04:20 08/17/18 04:20 Labs: Abnormal Lab Results - Last 24 Hours (Table) 02/13/19 02/13/19 02/13/19 Range/Units 20:17 22:16 23:59 WBC (3.8-10.6) k/uL RBC (3.80-5.40) m/uL Hgb (11.4-16.0) gm/dL Hct (34.0-46.0) % MCHC (31.0-37.0) g/dL RDW (11.5-15.5) % Plt Count (150-450) k/uL Neutrophils # (1.3-7.7) k/uL Lymphocytes # (1.0-4.8) k/uL ABG pH (7.35-7.45) ABG pCO2 (35-45) mmHg ABG HCO3 (21-25) mmol/L ABG O2 Saturation (94-97) % Chloride (98-107) mmol/L Carbon Dioxide (22-30) mmol/L BUN (7-17) mg/dL Creatinine (0.52-1.04) mg/dL Glucose (74-99) mg/dL POC Glucose (mg/dL) 128 H 125 H 126 H (75-99) mg/dL Alkaline Phosphatase (38-126) U/L Total Protein (6.3-8.2) g/dL Albumin (3.5-5.0) g/dL 08/17/18 08/17/18 08/17/18 Range/Units 02:24 04:20 04:20 WBC 12.0 H (3.8-10.6) k/uL RBC 2.52 L (3.80-5.40) m/uL Hgb 7.4 L (11.4-16.0) gm/dL Hct 24.8 L (34.0-46.0) % MCHC 29.7 L (31.0-37.0) g/dL RDW 19.3 H (11.5-15.5) % Plt Count 59 L (150-450) k/uL Neutrophils # 10.7 H (1.3-7.7) k/uL Lymphocytes # 0.8 L (1.0-4.8) k/uL ABG pH (7.35-7.45) ABG pCO2 (35-45) mmHg ABG HCO3 (21-25) mmol/L ABG O2 Saturation (94-97) % Chloride 110 H (98-107) mmol/L Carbon Dioxide 18 L (22-30) mmol/L BUN 70 H (7-17) mg/dL Creatinine 1.34 H (0.52-1.04) mg/dL Glucose 128 H (74-99) mg/dL POC Glucose (mg/dL) 117 H (75-99) mg/dL Alkaline Phosphatase 138 H (38-126) U/L Total Protein 5.0 L (6.3-8.2) g/dL Albumin 2.2 L (3.5-5.0) g/dL 08/17/18 08/17/18 08/17/18 Range/Units 04:40 06:10 07:48 WBC (3.8-10.6) k/uL RBC (3.80-5.40) m/uL Hgb (11.4-16.0) gm/dL Hct (34.0-46.0) % MCHC (31.0-37.0) g/dL RDW (11.5-15.5) % Plt Count (150-450) k/uL Neutrophils # (1.3-7.7) k/uL Lymphocytes # (1.0-4.8) k/uL ABG pH 7.18 L* (7.35-7.45) ABG pCO2 51 H (35-45) mmHg ABG HCO3 19 L (21-25) mmol/L ABG O2 Saturation 97.1 H (94-97) % Chloride (98-107) mmol/L Carbon Dioxide (22-30) mmol/L BUN (7-17) mg/dL Creatinine (0.52-1.04) mg/dL Glucose (74-99) mg/dL POC Glucose (mg/dL) 138 H 130 H (75-99) mg/dL Alkaline Phosphatase (38-126) U/L Total Protein (6.3-8.2) g/dL Albumin (3.5-5.0) g/dL 08/17/18 08/17/18 08/17/18 Range/Units 08:38 10:41 14:20 WBC (3.8-10.6) k/uL RBC (3.80-5.40) m/uL Hgb (11.4-16.0) gm/dL Hct (34.0-46.0) % MCHC (31.0-37.0) g/dL RDW (11.5-15.5) % Plt Count (150-450) k/uL Neutrophils # (1.3-7.7) k/uL Lymphocytes # (1.0-4.8) k/uL ABG pH (7.35-7.45) ABG pCO2 (35-45) mmHg ABG HCO3 (21-25) mmol/L ABG O2 Saturation (94-97) % Chloride (98-107) mmol/L Carbon Dioxide (22-30) mmol/L BUN (7-17) mg/dL Creatinine (0.52-1.04) mg/dL Glucose (74-99) mg/dL POC Glucose (mg/dL) 135 H 143 H 165 H (75-99) mg/dL Alkaline Phosphatase (38-126) U/L Total Protein (6.3-8.2) g/dL Albumin (3.5-5.0) g/dL 08/17/18 08/17/18 Range/Units 16:07 17:51 WBC (3.8-10.6) k/uL RBC (3.80-5.40) m/uL Hgb (11.4-16.0) gm/dL Hct (34.0-46.0) % MCHC (31.0-37.0) g/dL RDW (11.5-15.5) % Plt Count (150-450) k/uL Neutrophils # (1.3-7.7) k/uL Lymphocytes # (1.0-4.8) k/uL ABG pH (7.35-7.45) ABG pCO2 (35-45) mmHg ABG HCO3 (21-25) mmol/L ABG O2 Saturation (94-97) % Chloride (98-107) mmol/L Carbon Dioxide (22-30) mmol/L BUN (7-17) mg/dL Creatinine (0.52-1.04) mg/dL Glucose (74-99) mg/dL POC Glucose (mg/dL) 169 H 178 H (75-99) mg/dL Alkaline Phosphatase (38-126) U/L Total Protein (6.3-8.2) g/dL Albumin (3.5-5.0) g/dL Microbiology - Last 24 Hours (Table) 08/13/18 14:50 Blood Culture - Preliminary Blood No Growth after 96 hours 08/10/18 18:30 Blood Culture - Final Blood No Growth after 144 hours Assessment and Plan Assessment: Diverticulitis with abscess and bowel perforation with septic shock s/p sigmoid colectomy, small bowel resection X 2 and appendectomy and debridement of wound necrosis - additional intraabdominal abscess - wean levophed as able - Surgery recs - ID recs: polymicrobial infection, zosyn and flagyl, ? need for gram + coverage with worsening CXR Non anion gap metabolic and respiratory acidosis - on Bicarb gtt - repeat ABG and BMP in AM ANDRY - hope for improvement with treatment of acidosis - hold off more diuretic at this time - avoid additional nephrotoxic agents - repeat BMP in AM ARDS/ MODS (Multiorgan failure) - treatment of infections - critical care recs Pneumomediastinum - likely due to high levels of peep - improving - continue to follow CXR - pulmonary recs Anemia, dilutational due to prolonged ICU stay - stable - follow CBC - transfuse for HgB <6 Relative adrenal insufficiency - stress dose steroids, decrease / if remains of pressors consider decrease again in AM Hyperglycemia due to steroids and TPN - prediabetes - A1C 6.1, diet modification on discharge - follow BS and continue insulin gtt Acute hypoxic respiratory failure due ARDS - vent management per ICU team - CXR reviewed appear fluid overloaded on lasix BID - Consider trach in the next few days if no improvement and patient stable Post-op ileus - on TPN - NGT to suction - general surgery recs Severe Protein calorie malnutrition - on TPN Left thumb ischemia - vascular surgery recs appreciated, conservative management at this time. Thromboctypenia, reactive to sepsis - follow CBC - HIT AB negative Hyponatremia, hypokalemia, hypophosphatemia, and hypomagnesemia resolved Coagulopathy, resolved Anion Gap metabolic acidosis, resolved lactic acidosis, improved Transaminitis, resolved DVT prophylaxis: SCDS due to thrombocytopenia Anticipated discharge: undetermined Place:[facility] A total of 45 minutes, complex care of this patient.
[2018-08-17 20:22] LABS: Glucose,Whole Blood 93 mg/dL (75-99)
[2018-08-17 20:48] LABS: ABG Base Excess -8.2 mmol/L; ABG HCO3 20 mmol/L (21-25); ABG Oxygen Saturation 91.9 % (94-97); ABG PCO2 48 mmHg (35-45); ABG PH 7.22 (7.35-7.45); ABG PO2 67 mmHg (83-108); ABG TCO2 21 mmol/L (19-24)
[2018-08-17 21:35] LABS: Glucose,Whole Blood 193 mg/dL (75-99)
[2018-08-17 21:46] LABS: Anisocytosis Slight; HCT 21.9 % (34.0-46.0); Hypochromasia Marked; MCH 30.2 pg (25.0-35.0); MCHC 31.3 g/dL (31.0-37.0); MCV 96.5 fL (80.0-100.0); Macrocytosis Slight; Mean Platelet Volume 10.8; Poikilocytosis Slight; RBC 2.27 m/uL (3.80-5.40); RDW 19.6 % (11.5-15.5); WBC 10.4 k/uL (3.8-10.6)
[2018-08-17 21:49] LABS: Platelet Count 53 k/uL (150-450)
[2018-08-17 21:51] LABS: HGB 6.9 gm/dL (11.4-16.0)
[2018-08-17 22:33] LABS: Glucose,Whole Blood 163 mg/dL (75-99)
--- NOTE | 2018-08-17 23:05 | PN ---
PROGRESS NOTE DATE OF SERVICE: 08/17/2018 REASON FOR FOLLOWUP: Abdominal sepsis. INTERVAL HISTORY: The patient was seen on rounds early this afternoon. The patient has been afebrile. The patient was hemodynamically stable, not on pressor support. FiO2 at 55%. No other changes reported by the nursing staff. PHYSICAL EXAMINATION: Blood pressure 142/59 with a pulse of 90, temperature of . She is 90% on 55% FiO2. General description is a middle-aged female lying in bed in no distress. HEENT EXAMINATION: Pallor. LUNGS: Unlabored breathing. Decreased breath sounds at the bases. No wheeze. HEART: S1, S2. Regular rate and rhythm. ABDOMEN: Soft. Midline incision open and packed. EXTREMITIES: Two plus edema of feet. LABS: Hemoglobin 6.9, white count 10.4. BUN of 70, creatinine 1.34. DIAGNOSTIC IMPRESSION AND PLAN: Patient with abdominal sepsis in this patient who does have a complicated abdominal history with perforated sigmoid diverticulitis followed by perforated small bowel requiring surgery x2; also with a tracheostomy. Patient's overall prognosis remains guarded. She is currently covered with broad-spectrum antibiotic in the form of vancomycin, Zosyn, antifungals. Continue supportive care. MMODL / IJN: [id number] /
[2018-08-17 23:35] LABS: Glucose,Whole Blood 181 mg/dL (75-99)
[2018-08-18 00:01] VITALS: BP 128/52
[2018-08-18 00:53] LABS: Glucose,Whole Blood 173 mg/dL (75-99)
[2018-08-18 01:24] LABS: Glucose,Whole Blood 151 mg/dL (75-99)
[2018-08-18 01:56] LABS: Glucose,Whole Blood 160 mg/dL (75-99)
[2018-08-18] MEDS: PROPOFOL 1,000 MG in EMPTY BAG 1 BAG IV SCH (03:03)
[2018-08-18 03:14] LABS: Glucose,Whole Blood 150 mg/dL (75-99)
[2018-08-18 04:03] LABS: Glucose,Whole Blood 153 mg/dL (75-99)
[2018-08-18 04:24] LABS: Albumin 2.1 g/dL (3.5-5.0); Calcium 8.3 mg/dL (8.4-10.2); Magnesium 2.1 mg/dL (1.6-2.3); Potassium 4.6 mmol/L (3.5-5.1); Total Bilirubin 1.2 mg/dL (0.2-1.3); Total Protein 4.9 g/dL (6.3-8.2)
[2018-08-18 04:25] LABS: Anisocytosis Slight; HCT 28.8 % (34.0-46.0); Hypochromasia Marked; MCH 30.9 pg (25.0-35.0); MCHC 31.9 g/dL (31.0-37.0); Macrocytosis Slight; Mean Platelet Volume 10.1; Platelet Count 62 k/uL (150-450); Poikilocytosis Slight; RBC 2.97 m/uL (3.80-5.40); RDW 18.3 % (11.5-15.5)
[2018-08-18 04:30] LABS: Vancomycin,Random 25.2 ug/mL
[2018-08-18 04:51] LABS: HGB 9.2 gm/dL (11.4-16.0)
[2018-08-18 05:12] LABS: Band Neutrophils % 15 %; Eosinophils # (M) 0.13 k/uL (0-0.7); Neutrophils % (M) 80 %; Nucleated Red Blood Cells 4 /100 WBC (0-0); Total Cells Counted 200; WBC 12.5 k/uL (3.8-10.6)
[2018-08-18 05:13] LABS: Polychromasia Present
[2018-08-18] MEDS: SODIUM CHLORIDE 0.45% 1,000 ML IV SCH (05:37)
[2018-08-18] MEDS: METOCLOPRAMIDE 5 MG/ML 2 ML VIAL IVP SCH ×4 (05:37→23:52)
[2018-08-18] MEDS: DEXTROSE 5% IN WATER 1,000 ML with SODIUM BICARB (1 MEQ/ML) 150 ML IV SCH ×2 (05:37→23:49)
[2018-08-18] MEDS: [UNRECOGNIZED DRUG - REMARK] IV SCH ×6 (06:11)
[2018-08-18 06:21] LABS: Glucose,Whole Blood 83 mg/dL (75-99)
--- NOTE | 2018-08-18 07:19 | XR ---
EXAMINATION TYPE: XR chest 1V portable DATE OF EXAM: 08/18/2018 COMPARISON: 08/17/2018 HISTORY: ARDS. Follow-up exam. Respiratory failure. TECHNIQUE: Single frontal view of the chest is obtained. FINDINGS: Diffuse subcutaneous emphysema is seen in the supraclavicular region and to a lesser degre e in the axillary regions. Enteric tube and left-sided subclavian central venous catheter are unchanged in position as is the mi dline tracheostomy. Cardiomediastinal silhouette is within normal limits. Alveolar and interstitial opacities have become more confluent in the interim in the right hilar region and right infrahilar region. [place] of t he left lung base remains with opacities scattered to lesser degree throughout the lungs with relativ e apical and peripheral sparing. IMPRESSION: Increasing confluence in the right perihilar and infrahilar region with diffuse intersti tial and alveolar opacities compatible with the patient's provided diagnosis of ARDS. Degree of subcu taneous emphysema is unchanged from the prior.
[2018-08-18 08:20] LABS: ABG Base Excess -7.6 mmol/L; ABG HCO3 20 mmol/L (21-25); ABG Oxygen Saturation 91.7 % (94-97); ABG PCO2 52 mmHg (35-45); ABG PO2 67 mmHg (83-108); ABG TCO2 22 mmol/L (19-24)
[2018-08-18] MEDS: IPRATROPIUM-ALBUTEROL 3 ML NEB INHALATION SCH ×4 (08:24→19:15)
[2018-08-18 09:25] LABS: Glucose,Whole Blood 130 mg/dL (75-99)
[2018-08-18] MEDS: PIPERACILLIN-TAZOBACTAM 3.375 GM in SODIUM CHLORIDE 0.9% 100 ML IVPB SCH ×3 (10:06→23:52)
[2018-08-18] MEDS: HYDROCORTISONE SUCCINATE 100 MG/2 ML VIAL IV SCH ×3 (10:07→23:52)
[2018-08-18] MEDS: CHLORHEXIDINE GLUCONATE 15 ML CUP MUCOUS MEM SCH ×2 (10:07→20:47)
[2018-08-18] MEDS: ANIDULAFUNGIN 100 MG in SODIUM CHLORIDE 0.9% 100 ML IVPB SCH (10:07)
[2018-08-18] MEDS: PANTOPRAZOLE 40 MG/10 ML VIAL IVP SCH (10:07)
--- NOTE | 2018-08-18 10:29 | P.PN ---
<Maya Reyes A - Last Filed: 08/18/18 10:29> Subjective Progress Note Date: 08/18/18 CHIEF COMPLAINT: Abdominal pain HISTORY OF PRESENT ILLNESS: Patient examined at the bedside. patient s/p trach and wound debridement. POD #4. Patient remains sedated on mechanical ventilation. She remains a full code. No family present at the bedside. PHYSICAL EXAM: VITAL SIGNS: Currently stable. GENERAL: Sedated on ventilator. HEENT: Trach noted. OG tube noted. No sclera icterus. Extraocular movements grossly intact. Dry mucusa with old bloody drainage noted. Head is normocephalic. No nasal drainage. NECK: Supple without lymphadenopathy. CHEST: Equal bilateral excursions. Currently vented. CARDIOVASCULAR: Regular rate with regular rhythm. ABDOMEN: Distended. Ostomy x 2 with serous drainage on left. Dark brown/black drainage on right. Abdominal dressing CDI. NEUROLOGIC: Unable to assess secondary to intubation PSYCH: Unable to assess secondary to intubation ASSESSMENT: 1. Small bowel obstruction with perforated sigmoid colon and fecal peritonitis 2. Status post sigmoid colectomy with end colostomy, takedown of splenic flexure, small bowel resection 2, and appendectomy 3. Postoperative ileus 4. S/P repeat exploratory laparotomy and small bowel resection and abscess drainage and diverting ileostomy 5. S/P tracheostomy PLAN: 1. ICU management per lab tech. 2. Continue TPN 3. Daily wet to dry dressing changes of abdominal wound 4. Patients prognosis is extremely poor. No further wound debridements or surgical procedures will be performed per Dr. Jacobson. Nurse practitioner note has been reviewed by physician. Signing provider agrees with the documented findings, assessment, and plan of care. Objective - Vital Signs Vital signs: Vital Signs Temp 97.6 F 08/18/18 08:00 Pulse 98 08/18/18 10:00 Resp 38 H 08/18/18 10:00 BP 128/52 08/17/18 23:59 Pulse Ox 88 L 08/18/18 10:00 Intake & Output 08/17/18 08/18/18 08/18/18 18:59 06:59 18:59 Intake Total 7807.891 9327.463 491 Output Total 944 540 90 Balance 5874.139 6108.463 401 Weight 79.6 kg Intake: IV 730 1621 491 Anidulafungin 100 mg In 130 100 Sodium Chloride 0.9% 100 ml @ 84 mls/hr IVPB DAILY [facility] Rx#:[id number] Dextrose 5% in Water 1, 175 000 ml @ 75 mls/hr IV . [id number] JESSICA with Sodium Bicarb (1 Meq/ml) 150 ml Rx#:[id number] Mvi, Adult No.4 with Vit 570 K 10 ml Trace (Conc-1Ml/ Dose) 1 ml In Amino Acid 5%-D15w+Lytes*E* 1,000 ml @ 30 mls/hr IV .Q24H [facility] Rx#:[id number] Mvi, Adult No.4 with Vit 90 K 10 ml Trace (Conc-1Ml/ Dose) 1 ml Parenteral Electrolytes 20 ml Potassium Chloride 20 meq In Amino Acid 5%-D15w 1, 000 ml @ 45 mls/hr IV . Q23H8M [facility] Rx#:[id number] Piperacillin-Tazobactam 3 200 100 100 .375 gm In Sodium Chloride 0.9% 100 ml @ 25 mls/hr IVPB Q8HR [facility] Rx# :[id number] Pressure bag 36 6 Sodium Chloride 0.45% 1, 400 650 150 000 ml @ 50 mls/hr IV . Q20H [facility] Rx#:[id number] TPN 135 Intake, IV Titration 1266.451 238.463 Amount Insulin Regular 100 unit 53.004 In Sodium Chloride 0.9% 100 ml @ Per Protocol IV .Q0M [facility] Rx#:[id number] Mvi, Adult No.4 with Vit 974.25 K 10 ml Trace (Conc-1Ml/ Dose) 1 ml Calcium Gluconate 1 gm Magnesium Sulfate gm 0.5 gm Sodium Acetate 20 meq In Amino Acid 5%-D15w 1,000 ml @ 45 mls/hr IV .[id number] [facility] Rx#:[id number] Propofol 1,000 mg In 200 171.403 Empty Bag 1 bag @ Titrate IV .Q0M [facility] Rx#: [id number] fentaNYL (PF) 1,000 mcg 92.201 14.056 In Sodium Chloride 0.9% 80 ml @ 0.62 MCG/KG/HR 5. 02 mls/hr IV .[id number] [facility] Rx#:[id number] Blood Product 310 Rc Cpda-1 Unit 310 [id number] Lipid 0 Sodium Chloride 0.45% 1, 0 000 ml @ 50 mls/hr IV . Q20H [facility] Rx#:[id number] Output: Drainage 100 135 Left Upper Abdomen 10 Right Abdomen 100 Right Lower Abdomen 25 Right Upper Abdomen 100 Urine 344 295 90 Stool 500 110 Other: Voiding Method Indwelling Catheter Indwelling Catheter # Voids 2 ABP, PAP, CO, CI - Last Documented Arterial Blood Pressure 115/47 - Labs CBC & Chem 7: 08/18/18 03:51 08/18/18 03:51 Labs: Abnormal Lab Results - Last 24 Hours (Table) 08/11/18 08/17/18 08/17/18 Range/Units 09:50 10:41 14:20 WBC (3.8-10.6) k/uL RBC (3.80-5.40) m/uL Hgb (11.4-16.0) gm/dL Hct (34.0-46.0) % RDW (11.5-15.5) % Plt Count (150-450) k/uL Neutrophils # (Manual) (1.3-7.7) k/uL Lymphocytes # (Manual) (1.0-4.8) k/uL Nucleated RBCs (0-0) /100 WBC ABG pH (7.35-7.45) ABG pCO2 (35-45) mmHg ABG pO2 (83-108) mmHg ABG HCO3 (21-25) mmol/L ABG O2 Saturation (94-97) % Sodium (137-145) mmol/L Carbon Dioxide (22-30) mmol/L BUN (7-17) mg/dL Creatinine (0.52-1.04) mg/dL Glucose (74-99) mg/dL POC Glucose (mg/dL) 143 H 165 H (75-99) mg/dL Calcium (8.4-10.2) mg/dL Phosphorus (2.5-4.5) mg/dL Alkaline Phosphatase (38-126) U/L Total Protein (6.3-8.2) g/dL Albumin (3.5-5.0) g/dL Crossmatch See Detail 08/17/18 08/17/18 08/17/18 Range/Units 16:07 17:51 20:46 WBC (3.8-10.6) k/uL RBC (3.80-5.40) m/uL Hgb (11.4-16.0) gm/dL Hct (34.0-46.0) % RDW (11.5-15.5) % Plt Count (150-450) k/uL Neutrophils # (Manual) (1.3-7.7) k/uL Lymphocytes # (Manual) (1.0-4.8) k/uL Nucleated RBCs (0-0) /100 WBC ABG pH 7.22 L (7.35-7.45) ABG pCO2 48 H (35-45) mmHg ABG pO2 67 L (83-108) mmHg ABG HCO3 20 L (21-25) mmol/L ABG O2 Saturation 91.9 L (94-97) % Sodium (137-145) mmol/L Carbon Dioxide (22-30) mmol/L BUN (7-17) mg/dL Creatinine (0.52-1.04) mg/dL Glucose (74-99) mg/dL POC Glucose (mg/dL) 169 H 178 H (75-99) mg/dL Calcium (8.4-10.2) mg/dL Phosphorus (2.5-4.5) mg/dL Alkaline Phosphatase (38-126) U/L Total Protein (6.3-8.2) g/dL Albumin (3.5-5.0) g/dL Crossmatch 08/17/18 08/17/18 08/17/18 Range/Units 21:15 21:24 21:24 WBC (3.8-10.6) k/uL RBC 2.27 L (3.80-5.40) m/uL Hgb 6.9 L* (11.4-16.0) gm/dL Hct 21.9 L (34.0-46.0) % RDW 19.6 H (11.5-15.5) % Plt Count 53 L (150-450) k/uL Neutrophils # (Manual) (1.3-7.7) k/uL Lymphocytes # (Manual) (1.0-4.8) k/uL Nucleated RBCs (0-0) /100 WBC ABG pH (7.35-7.45) ABG pCO2 (35-45) mmHg ABG pO2 (83-108) mmHg ABG HCO3 (21-25) mmol/L ABG O2 Saturation (94-97) % Sodium (137-145) mmol/L Carbon Dioxide (22-30) mmol/L BUN (7-17) mg/dL Creatinine (0.52-1.04) mg/dL Glucose (74-99) mg/dL POC Glucose (mg/dL) 193 H (75-99) mg/dL Calcium (8.4-10.2) mg/dL Phosphorus (2.5-4.5) mg/dL Alkaline Phosphatase (38-126) U/L Total Protein (6.3-8.2) g/dL Albumin (3.5-5.0) g/dL Crossmatch See Detail 08/17/18 08/17/18 08/18/18 Range/Units 22:19 23:18 00:03 WBC (3.8-10.6) k/uL RBC (3.80-5.40) m/uL Hgb (11.4-16.0) gm/dL Hct (34.0-46.0) % RDW (11.5-15.5) % Plt Count (150-450) k/uL Neutrophils # (Manual) (1.3-7.7) k/uL Lymphocytes # (Manual) (1.0-4.8) k/uL Nucleated RBCs (0-0) /100 WBC ABG pH (7.35-7.45) ABG pCO2 (35-45) mmHg ABG pO2 (83-108) mmHg ABG HCO3 (21-25) mmol/L ABG O2 Saturation (94-97) % Sodium (137-145) mmol/L Carbon Dioxide (22-30) mmol/L BUN (7-17) mg/dL Creatinine (0.52-1.04) mg/dL Glucose (74-99) mg/dL POC Glucose (mg/dL) 163 H 181 H 173 H (75-99) mg/dL Calcium (8.4-10.2) mg/dL Phosphorus (2.5-4.5) mg/dL Alkaline Phosphatase (38-126) U/L Total Protein (6.3-8.2) g/dL Albumin (3.5-5.0) g/dL Crossmatch 08/18/18 08/18/18 08/18/18 Range/Units 01:20 01:53 03:00 WBC (3.8-10.6) k/uL RBC (3.80-5.40) m/uL Hgb (11.4-16.0) gm/dL Hct (34.0-46.0) % RDW (11.5-15.5) % Plt Count (150-450) k/uL Neutrophils # (Manual) (1.3-7.7) k/uL Lymphocytes # (Manual) (1.0-4.8) k/uL Nucleated RBCs (0-0) /100 WBC ABG pH (7.35-7.45) ABG pCO2 (35-45) mmHg ABG pO2 (83-108) mmHg ABG HCO3 (21-25) mmol/L ABG O2 Saturation (94-97) % Sodium (137-145) mmol/L Carbon Dioxide (22-30) mmol/L BUN (7-17) mg/dL Creatinine (0.52-1.04) mg/dL Glucose (74-99) mg/dL POC Glucose (mg/dL) 151 H 160 H 150 H (75-99) mg/dL Calcium (8.4-10.2) mg/dL Phosphorus (2.5-4.5) mg/dL Alkaline Phosphatase (38-126) U/L Total Protein (6.3-8.2) g/dL Albumin (3.5-5.0) g/dL Crossmatch 08/18/18 08/18/18 08/18/18 Range/Units 03:51 03:51 03:59 WBC 12.5 H (3.8-10.6) k/uL RBC 2.97 L (3.80-5.40) m/uL Hgb 9.2 L D (11.4-16.0) gm/dL Hct 28.8 L (34.0-46.0) % RDW 18.3 H (11.5-15.5) % Plt Count 62 L (150-450) k/uL Neutrophils # (Manual) 11.80 H (1.3-7.7) k/uL Lymphocytes # (Manual) 0.50 L (1.0-4.8) k/uL Nucleated RBCs 4 H (0-0) /100 WBC ABG pH (7.35-7.45) ABG pCO2 (35-45) mmHg ABG pO2 (83-108) mmHg ABG HCO3 (21-25) mmol/L ABG O2 Saturation (94-97) % Sodium 135 L (137-145) mmol/L Carbon Dioxide 20 L (22-30) mmol/L BUN 81 H (7-17) mg/dL Creatinine 1.56 H (0.52-1.04) mg/dL Glucose 145 H (74-99) mg/dL POC Glucose (mg/dL) 153 H (75-99) mg/dL Calcium 8.3 L (8.4-10.2) mg/dL Phosphorus 5.0 H (2.5-4.5) mg/dL Alkaline Phosphatase 134 H (38-126) U/L Total Protein 4.9 L (6.3-8.2) g/dL Albumin 2.1 L (3.5-5.0) g/dL Crossmatch 08/18/18 08/18/18 Range/Units 08:12 09:21 WBC (3.8-10.6) k/uL RBC (3.80-5.40) m/uL Hgb (11.4-16.0) gm/dL Hct (34.0-46.0) % RDW (11.5-15.5) % Plt Count (150-450) k/uL Neutrophils # (Manual) (1.3-7.7) k/uL Lymphocytes # (Manual) (1.0-4.8) k/uL Nucleated RBCs (0-0) /100 WBC ABG pH 7.20 L (7.35-7.45) ABG pCO2 52 H (35-45) mmHg ABG pO2 67 L (83-108) mmHg ABG HCO3 20 L (21-25) mmol/L ABG O2 Saturation 91.7 L (94-97) % Sodium (137-145) mmol/L Carbon Dioxide (22-30) mmol/L BUN (7-17) mg/dL Creatinine (0.52-1.04) mg/dL Glucose (74-99) mg/dL POC Glucose (mg/dL) 130 H (75-99) mg/dL Calcium (8.4-10.2) mg/dL Phosphorus (2.5-4.5) mg/dL Alkaline Phosphatase (38-126) U/L Total Protein (6.3-8.2) g/dL Albumin (3.5-5.0) g/dL Crossmatch Microbiology - Last 24 Hours (Table) 08/13/18 14:50 Blood Culture - Preliminary Blood No Growth after 96 hours Assessment and Plan (1) Abdominal pain Current Visit: Yes Status: Acute Code(s): R10.9 - UNSPECIFIED ABDOMINAL PAIN SNOMED Code(s): 69400772 (2) Decreased oral intake Current Visit: Yes Status: Acute Code(s): R63.8 - OTHER SYMPTOMS AND SIGNS CONCERNING FOOD AND FLUID INTAKE SNOMED Code(s): 082185961 (3) Colonic diverticular abscess Current Visit: Yes Status: Acute Code(s): K57.20 - DVTRCLI OF LG INT W PERFORATION AND ABSCESS W/O BLEEDING SNOMED Code(s): 907349791 (4) Partial bowel obstruction Current Visit: Yes Status: Acute Code(s): K56.600 - PARTIAL INTESTINAL OBSTRUCTION, UNSPECIFIED TO CAUSE SNOMED Code(s): 97112465 <Brian Fang - Last Filed: 08/18/18 14:14> Subjective Patient remains on ventilator. Acidotic by ABGs. Some skin breakdown around the left-sided ostomy site. Patient remains on TPN. Bilious fluid through the ileostomy. Continue supportive care. Objective - Vital Signs Vital signs: Vital Signs Temp 97.6 F 08/18/18 12:00 Pulse 99 08/18/18 13:00 Resp 25 H 08/18/18 13:00 BP 128/52 08/17/18 23:59 Pulse Ox 89 L 08/18/18 13:00 Intake & Output 08/17/18 08/18/18 08/18/18 18:59 06:59 18:59 Intake Total 4964.893 9831.463 785 Output Total 944 540 145 Balance 7084.389 7994.463 640 Weight 79.6 kg 79.6 kg Intake: IV 730 1621 785 Anidulafungin 100 mg In 130 100 Sodium Chloride 0.9% 100 ml @ 84 mls/hr IVPB DAILY [facility] Rx#:[id number] Dextrose 5% in Water 1, 175 000 ml @ 75 mls/hr IV . [id number] JESSICA with Sodium Bicarb (1 Meq/ml) 150 ml Rx#:[id number] Mvi, Adult No.4 with Vit 570 K 10 ml Trace (Conc-1Ml/ Dose) 1 ml In Amino Acid 5%-D15w+Lytes*E* 1,000 ml @ 30 mls/hr IV .Q24H [facility] Rx#:[id number] Mvi, Adult No.4 with Vit 90 K 10 ml Trace (Conc-1Ml/ Dose) 1 ml Parenteral Electrolytes 20 ml Potassium Chloride 20 meq In Amino Acid 5%-D15w 1, 000 ml @ 45 mls/hr IV . Q23H8M [facility] Rx#:[id number] Piperacillin-Tazobactam 3 200 100 100 .375 gm In Sodium Chloride 0.9% 100 ml @ 25 mls/hr IVPB Q8HR [facility] Rx# :[id number] Pressure bag 36 15 Sodium Chloride 0.45% 1, 400 650 300 000 ml @ 50 mls/hr IV . Q20H [facility] Rx#:[id number] TPN 270 Intake, IV Titration 1266.451 238.463 Amount Insulin Regular 100 unit 53.004 In Sodium Chloride 0.9% 100 ml @ Per Protocol IV .Q0M [facility] Rx#:[id number] Mvi, Adult No.4 with Vit 974.25 K 10 ml Trace (Conc-1Ml/ Dose) 1 ml Calcium Gluconate 1 gm Magnesium Sulfate gm 0.5 gm Sodium Acetate 20 meq In Amino Acid 5%-D15w 1,000 ml @ 45 mls/hr IV .[id number] [facility] Rx#:[id number] Propofol 1,000 mg In 200 171.403 Empty Bag 1 bag @ Titrate IV .Q0M [facility] Rx#: [id number] fentaNYL (PF) 1,000 mcg 92.201 14.056 In Sodium Chloride 0.9% 80 ml @ 0.62 MCG/KG/HR 5. 02 mls/hr IV .[id number] [facility] Rx#:[id number] Blood Product 310 Rc Cpda-1 Unit 310 [id number] Lipid 0 Sodium Chloride 0.45% 1, 0 000 ml @ 50 mls/hr IV . Q20H [facility] Rx#:[id number] Output: Drainage 100 135 Left Upper Abdomen 10 Right Abdomen 100 Right Lower Abdomen 25 Right Upper Abdomen 100 Urine 344 295 145 Stool 500 110 Other: Voiding Method Indwelling Catheter Indwelling Catheter Indwelling Catheter # Voids 2 ABP, PAP, CO, CI - Last Documented Arterial Blood Pressure 130/46 - Labs CBC & Chem 7: 08/18/18 03:51 08/18/18 03:51 Labs: Abnormal Lab Results - Last 24 Hours (Table) 08/11/18 08/17/18 08/17/18 Range/Units 09:50 14:20 16:07 WBC (3.8-10.6) k/uL RBC (3.80-5.40) m/uL Hgb (11.4-16.0) gm/dL Hct (34.0-46.0) % RDW (11.5-15.5) % Plt Count (150-450) k/uL Neutrophils # (Manual) (1.3-7.7) k/uL Lymphocytes # (Manual) (1.0-4.8) k/uL Nucleated RBCs (0-0) /100 WBC ABG pH (7.35-7.45) ABG pCO2 (35-45) mmHg ABG pO2 (83-108) mmHg ABG HCO3 (21-25) mmol/L ABG O2 Saturation (94-97) % Sodium (137-145) mmol/L Carbon Dioxide (22-30) mmol/L BUN (7-17) mg/dL Creatinine (0.52-1.04) mg/dL Glucose (74-99) mg/dL POC Glucose (mg/dL) 165 H 169 H (75-99) mg/dL Calcium (8.4-10.2) mg/dL Phosphorus (2.5-4.5) mg/dL Alkaline Phosphatase (38-126) U/L Total Protein (6.3-8.2) g/dL Albumin (3.5-5.0) g/dL Crossmatch See Detail 08/17/18 08/17/18 08/17/18 Range/Units 17:51 20:46 21:15 WBC (3.8-10.6) k/uL RBC (3.80-5.40) m/uL Hgb (11.4-16.0) gm/dL Hct (34.0-46.0) % RDW (11.5-15.5) % Plt Count (150-450) k/uL Neutrophils # (Manual) (1.3-7.7) k/uL Lymphocytes # (Manual) (1.0-4.8) k/uL Nucleated RBCs (0-0) /100 WBC ABG pH 7.22 L (7.35-7.45) ABG pCO2 48 H (35-45) mmHg ABG pO2 67 L (83-108) mmHg ABG HCO3 20 L (21-25) mmol/L ABG O2 Saturation 91.9 L (94-97) % Sodium (137-145) mmol/L Carbon Dioxide (22-30) mmol/L BUN (7-17) mg/dL Creatinine (0.52-1.04) mg/dL Glucose (74-99) mg/dL POC Glucose (mg/dL) 178 H 193 H (75-99) mg/dL Calcium (8.4-10.2) mg/dL Phosphorus (2.5-4.5) mg/dL Alkaline Phosphatase (38-126) U/L Total Protein (6.3-8.2) g/dL Albumin (3.5-5.0) g/dL Crossmatch 08/17/18 08/17/18 08/17/18 Range/Units 21:24 21:24 22:19 WBC (3.8-10.6) k/uL RBC 2.27 L (3.80-5.40) m/uL Hgb 6.9 L* (11.4-16.0) gm/dL Hct 21.9 L (34.0-46.0) % RDW 19.6 H (11.5-15.5) % Plt Count 53 L (150-450) k/uL Neutrophils # (Manual) (1.3-7.7) k/uL Lymphocytes # (Manual) (1.0-4.8) k/uL Nucleated RBCs (0-0) /100 WBC ABG pH (7.35-7.45) ABG pCO2 (35-45) mmHg ABG pO2 (83-108) mmHg ABG HCO3 (21-25) mmol/L ABG O2 Saturation (94-97) % Sodium (137-145) mmol/L Carbon Dioxide (22-30) mmol/L BUN (7-17) mg/dL Creatinine (0.52-1.04) mg/dL Glucose (74-99) mg/dL POC Glucose (mg/dL) 163 H (75-99) mg/dL Calcium (8.4-10.2) mg/dL Phosphorus (2.5-4.5) mg/dL Alkaline Phosphatase (38-126) U/L Total Protein (6.3-8.2) g/dL Albumin (3.5-5.0) g/dL Crossmatch See Detail 08/17/18 08/18/18 08/18/18 Range/Units 23:18 00:03 01:20 WBC (3.8-10.6) k/uL RBC (3.80-5.40) m/uL Hgb (11.4-16.0) gm/dL Hct (34.0-46.0) % RDW (11.5-15.5) % Plt Count (150-450) k/uL Neutrophils # (Manual) (1.3-7.7) k/uL Lymphocytes # (Manual) (1.0-4.8) k/uL Nucleated RBCs (0-0) /100 WBC ABG pH (7.35-7.45) ABG pCO2 (35-45) mmHg ABG pO2 (83-108) mmHg ABG HCO3 (21-25) mmol/L ABG O2 Saturation (94-97) % Sodium (137-145) mmol/L Carbon Dioxide (22-30) mmol/L BUN (7-17) mg/dL Creatinine (0.52-1.04) mg/dL Glucose (74-99) mg/dL POC Glucose (mg/dL) 181 H 173 H 151 H (75-99) mg/dL Calcium (8.4-10.2) mg/dL Phosphorus (2.5-4.5) mg/dL Alkaline Phosphatase (38-126) U/L Total Protein (6.3-8.2) g/dL Albumin (3.5-5.0) g/dL Crossmatch 08/18/18 08/18/18 08/18/18 Range/Units 01:53 03:00 03:51 WBC 12.5 H (3.8-10.6) k/uL RBC 2.97 L (3.80-5.40) m/uL Hgb 9.2 L D (11.4-16.0) gm/dL Hct 28.8 L (34.0-46.0) % RDW 18.3 H (11.5-15.5) % Plt Count 62 L (150-450) k/uL Neutrophils # (Manual) 11.80 H (1.3-7.7) k/uL Lymphocytes # (Manual) 0.50 L (1.0-4.8) k/uL Nucleated RBCs 4 H (0-0) /100 WBC ABG pH (7.35-7.45) ABG pCO2 (35-45) mmHg ABG pO2 (83-108) mmHg ABG HCO3 (21-25) mmol/L ABG O2 Saturation (94-97) % Sodium (137-145) mmol/L Carbon Dioxide (22-30) mmol/L BUN (7-17) mg/dL Creatinine (0.52-1.04) mg/dL Glucose (74-99) mg/dL POC Glucose (mg/dL) 160 H 150 H (75-99) mg/dL Calcium (8.4-10.2) mg/dL Phosphorus (2.5-4.5) mg/dL Alkaline Phosphatase (38-126) U/L Total Protein (6.3-8.2) g/dL Albumin (3.5-5.0) g/dL Crossmatch 08/18/18 08/18/18 08/18/18 Range/Units 03:51 03:59 08:12 WBC (3.8-10.6) k/uL RBC (3.80-5.40) m/uL Hgb (11.4-16.0) gm/dL Hct (34.0-46.0) % RDW (11.5-15.5) % Plt Count (150-450) k/uL Neutrophils # (Manual) (1.3-7.7) k/uL Lymphocytes # (Manual) (1.0-4.8) k/uL Nucleated RBCs (0-0) /100 WBC ABG pH 7.20 L (7.35-7.45) ABG pCO2 52 H (35-45) mmHg ABG pO2 67 L (83-108) mmHg ABG HCO3 20 L (21-25) mmol/L ABG O2 Saturation 91.7 L (94-97) % Sodium 135 L (137-145) mmol/L Carbon Dioxide 20 L (22-30) mmol/L BUN 81 H (7-17) mg/dL Creatinine 1.56 H (0.52-1.04) mg/dL Glucose 145 H (74-99) mg/dL POC Glucose (mg/dL) 153 H (75-99) mg/dL Calcium 8.3 L (8.4-10.2) mg/dL Phosphorus 5.0 H (2.5-4.5) mg/dL Alkaline Phosphatase 134 H (38-126) U/L Total Protein 4.9 L (6.3-8.2) g/dL Albumin 2.1 L (3.5-5.0) g/dL Crossmatch 08/18/18 08/18/18 Range/Units 09:21 12:31 WBC (3.8-10.6) k/uL RBC (3.80-5.40) m/uL Hgb (11.4-16.0) gm/dL Hct (34.0-46.0) % RDW (11.5-15.5) % Plt Count (150-450) k/uL Neutrophils # (Manual) (1.3-7.7) k/uL Lymphocytes # (Manual) (1.0-4.8) k/uL Nucleated RBCs (0-0) /100 WBC ABG pH (7.35-7.45) ABG pCO2 (35-45) mmHg ABG pO2 (83-108) mmHg ABG HCO3 (21-25) mmol/L ABG O2 Saturation (94-97) % Sodium (137-145) mmol/L Carbon Dioxide (22-30) mmol/L BUN (7-17) mg/dL Creatinine (0.52-1.04) mg/dL Glucose (74-99) mg/dL POC Glucose (mg/dL) 130 H 140 H (75-99) mg/dL Calcium (8.4-10.2) mg/dL Phosphorus (2.5-4.5) mg/dL Alkaline Phosphatase (38-126) U/L Total Protein (6.3-8.2) g/dL Albumin (3.5-5.0) g/dL Crossmatch Microbiology - Last 24 Hours (Table) 08/13/18 14:50 Blood Culture - Preliminary Blood No Growth after 96 hours
[2018-08-18] MEDS ORDERED: FUROSEMIDE 10 MG/ML 10 ML VIAL IV STA (11:41)
--- NOTE | 2018-08-18 11:44 | P.NPCON ---
History of Present Illness - Reason for Consult acute renal failure - History of Present Illness Reason for consultation: Acute kidney injury History of present illness: Patient is a 58-year-old female seen in renal conservation for acute kidney injury. Patient was initially sent to the hospital on July 26 by her PCP for dehydration. She's been having abdominal pain for 6 months. Further imaging revealed patient was noted to have small bowel obstruction with perforated sigmoid colon with fecal peritonitis. She subsequently underwent sigmoid colectomy and small bowel resection this admission. She continues to require mechanical ventilation. She underwent tracheostomy this admission. She is maintained on IV antibiotics and has been requiring Levophed intermittently. She has an NG tube in place. Urine output has been 15-20 mL an hour. She was also receiving IV vancomycin and vancomycin level on August 16 was up to 30. Her hemoglobin was 6.9 yesterday for which she received 1 unit of blood. Hemoglobin is up to 9.2 today. She is maintained on a bicarb drip at 75 mL an hour. She is also on TPN. Vital signs are stable. General: NG tube noted. Tracheostomy noted. Generalized edema. HEENT: Head exam is unremarkable. Neck is without jugular venous distension. LUNGS: Lungs are clear to auscultation and percussion. Breath sounds decreased. HEART: Rate and Rhythm are regular. First and second heart sounds normal. No murmurs, rubs or gallops. ABDOMEN: Bowel sounds decreased. EXTREMITITES: 2+ edema. Past Medical History Past Medical History: No Reported History History of Any Multi-Drug Resistant Organisms: None Reported Past Surgical History: Hysterectomy, Orthopedic Surgery Past Psychological History: No Psychological Hx Reported Smoking Status: Never smoker Past Alcohol Use History: Occasional Past Drug Use History: None Reported - Past Family History Mother Family Medical History: Coronary Artery Disease (CAD), Diabetes Mellitus Father Family Medical History: Diabetes Mellitus Additional Family Medical History / Comment(s): [email or web address] Medications and Allergies Home Medications Medication Instructions Recorded Confirmed Type Omeprazole 20 mg PO DAILY 07/26/18 07/27/18 History Sucralfate [Carafate] 1 gram PO TID 07/26/18 07/26/18 History Allergies Allergy/AdvReac Type Severity Reaction Status Date / Time No Known Allergies Allergy Verified 07/26/18 20:15 Physical Exam Vitals: Vital Signs Temp Pulse Resp BP Pulse Ox 08/18/18 11:00 94 37 H 87 L 08/18/18 10:30 98 34 H 88 L 08/18/18 10:00 98 38 H 88 L 08/18/18 09:30 100 55 H 89 L 08/18/18 09:00 98 36 H 90 L 08/18/18 08:51 93 08/18/18 08:30 98 36 H 90 L 08/18/18 08:28 97 08/18/18 08:00 97.6 F 99 36 H 90 L 08/18/18 07:30 97 36 H 90 L 08/18/18 07:00 101 H 37 H 90 L 08/18/18 06:30 102 H 36 H 90 L 08/18/18 06:00 103 H 39 H 90 L 08/18/18 05:30 101 H 36 H 90 L 08/18/18 05:00 102 H 36 H 90 L 08/18/18 04:30 104 H 36 H 90 L 08/18/18 04:00 98.3 F 103 H 36 H 90 L 08/18/18 03:30 102 H 36 H 90 L 08/18/18 03:00 105 H 36 H 89 L 08/18/18 02:30 107 H 36 H 90 L 08/18/18 02:00 108 H 38 H 90 L 08/18/18 01:45 108 H 36 H 90 L 08/18/18 01:30 107 H 36 H 90 L 08/18/18 01:15 98.2 F 108 H 36 H 90 L 08/18/18 01:00 107 H 36 H 90 L 08/18/18 00:45 98 F 107 H 36 H 90 L 08/18/18 00:30 97.8 F 102 H 37 H 89 L 08/18/18 00:15 104 H 36 H 89 L 08/18/18 00:14 97.4 F L 100 36 H 89 L 08/18/18 00:00 97 F L 105 H 36 H 89 L 08/17/18 23:59 97.5 F L 101 H 40 H 128/52 89 L 08/17/18 23:30 107 H 36 H 89 L 08/17/18 23:00 95.9 F L 97 36 H 90 L 08/17/18 22:30 96 36 H 91 L 08/17/18 22:00 95 F L 94 37 H 88 L 08/17/18 21:30 89 36 H 88 L 08/17/18 21:00 92.7 F L 88 36 H 88 L 08/17/18 20:30 86 36 H 90 L 08/17/18 20:25 80 08/17/18 20:11 90 08/17/18 20:00 92 F L 86 36 H 93 L 08/17/18 19:30 91 36 H 92 L 08/17/18 19:00 92 36 H 91 L 08/17/18 18:00 87 37 H 92 L 08/17/18 17:00 87 27 H 92 L 08/17/18 16:17 79 08/17/18 16:00 87 36 H 97 08/17/18 15:41 91 08/17/18 15:00 92 38 H 98 08/17/18 14:00 90 39 H 94 L 08/17/18 13:00 91 34 H 95 08/17/18 12:00 87 23 94 L 08/17/18 11:52 78 Intake and Output 08/17/18 08/18/18 08/18/18 22:59 06:59 14:59 Intake Total 1042.756 8959.829 589 Output Total 465 440 110 Balance 717.057 2376.829 479 Intake: IV 769 1102 589 Anidulafungin 100 mg In 100 Sodium Chloride 0.9% 100 ml @ 84 mls/hr IVPB DAILY JESSICA Rx#:[id number] Dextrose 5% in Water 1, 175 000 ml @ 75 mls/hr IV . [id number] JESSICA with Sodium Bicarb (1 Meq/ml) 150 ml Rx#:[id number] Mvi, Adult No.4 with Vit 135 435 K 10 ml Trace (Conc-1Ml/ Dose) 1 ml In Amino Acid 5%-D15w+Lytes*E* 1,000 ml @ 30 mls/hr IV .Q24H JESSICA Rx#:[id number] Mvi, Adult No.4 with Vit 90 K 10 ml Trace (Conc-1Ml/ Dose) 1 ml Parenteral Electrolytes 20 ml Potassium Chloride 20 meq In Amino Acid 5%-D15w 1, 000 ml @ 45 mls/hr IV . Q23H8M JESSICA Rx#:[id number] Piperacillin-Tazobactam 3 100 100 100 .375 gm In Sodium Chloride 0.9% 100 ml @ 25 mls/hr IVPB Q8HR JESSICA Rx# :[id number] Pressure bag 9 27 9 Sodium Chloride 0.45% 1, 350 450 200 000 ml @ 50 mls/hr IV . Q20H JESSICA Rx#:[id number] TPN 180 Intake, IV Titration 238.835 191.829 Amount Insulin Regular 100 unit 30.588 22.416 In Sodium Chloride 0.9% 100 ml @ Per Protocol IV .Q0M JESSICA Rx#:[id number] Propofol 1,000 mg In 101.99 169.413 Empty Bag 1 bag @ Titrate IV .Q0M JESSICA Rx#: [id number] fentaNYL (PF) 1,000 mcg 106.257 In Sodium Chloride 0.9% 80 ml @ 0.62 MCG/KG/HR 5. 02 mls/hr IV .[id number] JESSICA Rx#:[id number] Blood Product 310 Rc Cpda-1 Unit 310 [id number] Lipid 0 Sodium Chloride 0.45% 1, 0 000 ml @ 50 mls/hr IV . Q20H JESSICA Rx#:[id number] Output: Drainage 40 135 Left Upper Abdomen 10 Right Abdomen 40 Right Lower Abdomen 25 Right Upper Abdomen 100 Urine 225 195 110 Stool 200 110 Other: Voiding Method Indwelling Catheter Indwelling Catheter Indwelling Catheter # Voids 2 ABP, PAP, CO, CI - Last 8 Hours Arterial Blood Pressure 113/45 Arterial Blood Pressure 108/43 Arterial Blood Pressure 115/47 Arterial Blood Pressure 123/50 Arterial Blood Pressure 131/52 Arterial Blood Pressure 132/53 Arterial Blood Pressure 128/48 Arterial Blood Pressure 116/44 Arterial Blood Pressure 122/46 Arterial Blood Pressure 119/45 Arterial Blood Pressure 110/42 Arterial Blood Pressure 120/46 Arterial Blood Pressure 121/46 Arterial Blood Pressure 115/45 Arterial Blood Pressure 118/45 Results - Lab Results Most recent lab results ABG pH 7.20 (7.35-7.45) L 08/18/18 08:12 ABG pCO2 52 mmHg (35-45) H 08/18/18 08:12 ABG pO2 67 mmHg (83-108) L 08/18/18 08:12 ABG HCO3 20 mmol/L (21-25) L 08/18/18 08:12 ABG O2 Saturation 91.7 % (94-97) L 08/18/18 08:12 Calcium 8.3 mg/dL (8.4-10.2) L 08/18/18 03:51 Phosphorus 5.0 mg/dL (2.5-4.5) H 08/18/18 03:51 Magnesium 2.1 mg/dL (1.6-2.3) 08/18/18 03:51 08/18/18 03:51 08/18/18 03:51 Assessment and Plan Plan: Assessment: 1. Acute kidney injury secondary to ATN secondary to septic shock as well as a component of acute anemia and vancomycin toxicity. Baseline creatinine is 1. It is up to 1.56 today. 2. Septic shock secondary to fecal peritonitis. Maintained on IV antibiotics. Fluid culture was positive for E. coli and streptococcus species. Infectious disease following. 3. Small bowel obstruction with perforated sigmoid colon status post sigmoid colectomy and small bowel resection. 4. Mixed acute hypoxic and hypercapnic respiratory failure status post tracheostomy this admission. 5. Acute blood loss anemia status post blood transfusion. 6. Generalized anasarca. 7. Metabolic acidosis secondary to acute kidney injury maintained on bicarb drip. Plan: Maintain isotonic bicarbonate drip to be run at 75 mL an hour. Lasix 80 mg IV once today. Vancomycin has been discontinued. Continue to monitor renal function and urine output. Overall prognosis remains poor. Thank you for the consultation. I will continue to follow patient with you during her hospital stay.
[2018-08-18 12:44] LABS: Glucose,Whole Blood 140 mg/dL (75-99)
[2018-08-18] MEDS: NOREPINEPHRINE 32 MG in SODIUM CHLORIDE 0.9% 218 ML IV SCH ×2 (14:33→18:37)
[2018-08-18 14:38] LABS: Glucose,Whole Blood 146 mg/dL (75-99)
[2018-08-18] MEDS: INSULIN ASPART (NovoLOG) 100 UNIT/ML VIAL SQ SCH ×3 (14:48→23:47)
--- NOTE | 2018-08-18 16:33 | P.PN ---
Subjective Progress Note Date: 08/18/18 Principal diagnosis: Acute hypoxic respiratory failure secondary to ARDS, and abdominal sepsis. Patient was reevaluated today on 08/14/2018, remains on mechanical ventilation, she remains on relatively high PEEP of 12, and high FiO2 of 65% with marginal O2 saturation. O2 saturation was 93% at best. ABG could not be done this morning, the right radial arterial line was nonfunctional and it was removed. And she had issues related to her left radial arterial line which was discontinued because of ischemic changes of the left thumb. Patient remains on assist control rate of 30 tidal volume of 350 PEEP of 12 and FiO2 of 65%. Remains on fentanyl roughly about 50 mcg/m, insulin drip at 4.5 units per hour, and propofol drip at 40 mcg/kg/m. Considering the patient is still requiring high FiO2 and high PEEP, and she seems to be a bit tachypneic, I went ahead and recommended that the patient gets to be placed on Nimbex. She is scheduled to undergo tracheostomy today. Chest x-ray showed significant bilateral interstitial changes consistent with ARDS, significant subcutaneous emphysema is noted, no evidence of pneumothorax, and no evidence of pneumomediastinum. Fortunately, the patient is not requiring any pressors at this point. Urine output seems to be adequate, the pressure is adequate. She does have a net positive fluid balance. There is however significant amount of seepage noted from the skin surfaces specially skin of lower extremities. Colostomy is nonfunctional ileostomy is functioning. Patient remains on TPN. Necrotic left stump remains about the same. Patient was reevaluated today on 08/15/2018, she underwent tracheostomy yesterday. Postoperative ABG was poor, hence she was placed back on 100% FiO2 overnight, PEEP remains at 12, her gases this morning showed significant improvement, hence I was able to cut down the FiO2 to 55%, and I increased the PEEP to 15. Follow-up ABG this morning showed a pO2 of 98, pCO2 of 74 pH of 7.13. CBC is showing leukocytosis again with WBC count of 23.5, hemoglobin is 10. Platelets are 118,000. Basic metabolic profile is normal, renal profile showed a BUN of 48 creatinine of 0.75. Patient is now on multiple drips including propofol, 40 mcg/kg/m, fentanyl at 25 mcg/h, norepinephrine at 3.5 mcg /m. She is also on Nimbex drip. Titrated as per protocol. Her ventilator settings this morning were adjusted, she is presently on assist control rate of 56. Tidal volume of 350, FiO2 is 55%, and PEEP is 15. Chest x-ray continues to show diffuse bilateral interstitial infiltrates and airspace disease. No evidence of pneumothorax, and no evidence of pneumomediastinum. Recent blood cultures from 08/13/2018 remain negative. And urine cultures have been negative since 08/09/2018. Patient remains on DuoNeb updrafts,anidulafungin, Solu-Cortef which I will cut down to 50 mg every 8 hours, Zosyn, and vancomycin. Patient was reevaluated in the ICU again today on 08/16/2018. Patient remains on mechanical ventilation via tracheostomy. Remains on the same ventilator settings which are FiO2 of 50%, tidal volume of 350 assist-control rate is 36 PEEP remains high at 15. ABG this morning was marginal pO2 was noted to be 64 pCO2 is 56 pH of 7.19. Patient remains on multiple drips including propofol at 50 mcg/kg/m, Nimbex 1 mcg/kg/m which I plan to hold today fentanyl at 0.67 mcg/ kg/h and she is on norepinephrine at 0.08 mcg/kg/m. Urine output is marginal at best, patient is quite swollen and edematous, but I believe she is intravascularly depleted. Did not respond to albumin infusions followed by Lasix yesterday, hence I will give the patient fluids today, and hopefully will improve her urine output and bit more. May even consider a sodium bicarb drip, although the acidosis is mostly respiratory in nature, does have some metabolic component and that is believed to be related to her sepsis and hypoperfusion. Chest x-ray is basically the same continues to show bilateral infiltrates consistent with ARDS. Airway mechanics were reviewed, her peak airway pressure is in the low 40s, and her plateau pressures are in the range of 33-36. Patient remains sedated and paralyzed. I'm hoping I could get her off the Nimbex today, but considering patient is still requiring high PEEP, may not be able to tolerate coming off Nimbex easily. Patient remains on broad-spectrum antibiotics as per infectious disease on the case. All meds were reviewed, chest x-ray was reviewed as noted above. And labs were all reviewed and as noted above. Reevaluated today on 08/17/2018, remains in the intensive care unit, mechanically ventilated, remains on multiple drips, her ventilator settings are assist control rate of 36 tidal volume of 350 FiO2 of 55% PEEP is down to 10. ABG this morning showed a pO2 of 94 pCO2 of 51 pH of 7.18 which is basically a combined respiratory and metabolic acidosis. Hence I recommended starting the patient on a bicarb drip. I have also recommended cutting down the PEEP down to 10 and the FiO2 is 55% today. Chest x-ray continues to show bilateral interstitial infiltrates consistent with ARDS. Patient remains on propofol at 50 mcg/kg/m, fentanyl at 0.67 mcg/kg/m, he is also on insulin drip at 1.5 units per hour. Patient is off pressors, and off Nimbex. Continues to have relatively high peak airway pressures and plateau pressures. Consistent with ARDS/stiff lungs. Renal functioning has been worsening patient did receive albumin and Lasix last night, and did not improve much. Hence I have recommended today that we go back on a higher dose of fluids, she will be given 50 ML per hour, Lasix will be discontinued, and the sodium bicarb drip at 50 MLS per hour was also started. Patient is also receiving TPN. CBC showed WBC count of 12 hemoglobin of 7.4, at least secondary to count seems to be improving. BUN today is up to 70 creatinine is 1.34. Patient is quite edematous, she is third spacing, but I believe she is intravascularly depleted. Albumin and Lasix did not help much. Hence we'll try fluids only today. No albumin and no diuretics. Remains on multiple antibiotics including vancomycin , Zosyn and eraxix remains on TPN Reevaluated today on 08/18/2018, remains in the ICU, remains mechanically ventilated, remains on multiple drips but she is not requiring any pressors at this point. Tried to go down on the propofol, and as soon as the dose was cut down, patient became extremely agitated, tachycardic, restless, and her respirator rate was up in the 40s. Hence had to be placed back on propofol and she is also on fentanyl, but off Nimbex. Her fentanyl is 50 mcg/h, and her propofol is 45 mcg/kg/m. Her ventilator settings are tidal volume of 350 assist control rate of 36,FiO2 is 55% PEEP is 12.CBC showed WBC count of 12.5 hemoglobin is 9.2, required blood transfusion yesterday for a hemoglobin of 6.9ABG today showed a pO2 of 67 pCO2 of 52 pH of 7.20, remains on bicarb drip. Renal functioning is a bit worse today, her baseline creatinine is 0.57, it was 1.34 yesterday, and it is 1.56 today. Nephrology was consulted on this patient , and the recommendation was to continue bicarb drip, and given 1 dose of Lasix 80 mg IV push 1 today. Patient remains on TPN, remains on antibiotics as per infectious disease, her lung mechanics were reviewed again, lungs are becoming stiff and again, plateau pressures is in the low 30s. Objective - Vital Signs Vital signs: Vital Signs Temp 97.6 F 08/18/18 12:00 Pulse 96 08/18/18 15:35 Resp 36 H 08/18/18 15:00 BP 128/52 08/17/18 23:59 Pulse Ox 90 L 08/18/18 15:00 Intake & Output 08/17/18 08/18/18 08/18/18 18:59 06:59 18:59 Intake Total 1864.578 8676.463 981 Output Total 944 540 200 Balance 4480.688 5059.463 781 Weight 79.6 kg 84.1 kg Intake: IV 730 1621 981 Anidulafungin 100 mg In 130 100 Sodium Chloride 0.9% 100 ml @ 84 mls/hr IVPB DAILY JESSICA Rx#:[id number] Dextrose 5% in Water 1, 175 000 ml @ 75 mls/hr IV . [id number] JESSICA with Sodium Bicarb (1 Meq/ml) 150 ml Rx#:[id number] Mvi, Adult No.4 with Vit 570 K 10 ml Trace (Conc-1Ml/ Dose) 1 ml In Amino Acid 5%-D15w+Lytes*E* 1,000 ml @ 30 mls/hr IV .Q24H JESSICA Rx#:[id number] Mvi, Adult No.4 with Vit 90 K 10 ml Trace (Conc-1Ml/ Dose) 1 ml Parenteral Electrolytes 20 ml Potassium Chloride 20 meq In Amino Acid 5%-D15w 1, 000 ml @ 45 mls/hr IV . [id number] JESSICA Rx#:[id number] Piperacillin-Tazobactam 3 200 100 100 .375 gm In Sodium Chloride 0.9% 100 ml @ 25 mls/hr IVPB Q8HR JESSICA Rx# :[id number] Pressure bag 36 21 Sodium Chloride 0.45% 1, 400 650 400 000 ml @ 50 mls/hr IV . Q20H JESSICA Rx#:[id number] TPN 360 Intake, IV Titration 1266.451 238.463 Amount Insulin Regular 100 unit 53.004 In Sodium Chloride 0.9% 100 ml @ Per Protocol IV .Q0M JESSICA Rx#:[id number] Mvi, Adult No.4 with Vit 974.25 K 10 ml Trace (Conc-1Ml/ Dose) 1 ml Calcium Gluconate 1 gm Magnesium Sulfate gm 0.5 gm Sodium Acetate 20 meq In Amino Acid 5%-D15w 1,000 ml @ 45 mls/hr IV .[id number] JESSICA Rx#:[id number] Propofol 1,000 mg In 200 171.403 Empty Bag 1 bag @ Titrate IV .Q0M JESSICA Rx#: [id number] fentaNYL (PF) 1,000 mcg 92.201 14.056 In Sodium Chloride 0.9% 80 ml @ 0.62 MCG/KG/HR 5. 02 mls/hr IV .[id number] JESSICA Rx#:[id number] Blood Product 310 Rc Cpda-1 Unit 310 [id number] Lipid 0 Sodium Chloride 0.45% 1, 0 000 ml @ 50 mls/hr IV . Q20H JESSICA Rx#:[id number] Output: Drainage 100 135 Left Upper Abdomen 10 Right Abdomen 100 Right Lower Abdomen 25 Right Upper Abdomen 100 Urine 344 295 200 Stool 500 110 Other: Voiding Method Indwelling Catheter Indwelling Catheter Indwelling Catheter # Voids 2 ABP, PAP, CO, CI - Last Documented Arterial Blood Pressure 117/50 - Exam Physical Exam: Revealed a 58-year-old female on mechanical ventilation, fully sedated Head: Atraumatic, normocephalic. HEENT:[Neck is supple.] [No neck masses.] [No thyromegaly.] [No JVD.] PERRLA, EOMI, no icterus. Dry mucous membranes were noted. orogastric tube was noted .tracheostomy is intact Chest: Good breath sound bilaterally, no crackles or rhonchi or wheezes. symmetrical chest expansion was noted. Subcutaneous emphysema noted in the anterior chest wall. Cardiac Exam: [Normal S1 and S2, no S3 gallop, no murmur.] Abdomen: [Abdominal wound, remains open, colostomy and ileostomy tubes were noted. Dark material noted in both legs. Abdominal wall is swollen and edematous. Bowel sounds are hypoactive. Necrosis of the subcutaneous tissue along the wound borders noted bilaterally. Neurological Exam: Cannot be assessed sedated , noted to be extremely agitated with even slight decrease in her sedation medication/propofol Psychiatric: Cannot be assessed. Skin/extremities. unchanged, there is Evidence of poor perfusion to the tips of the fingers in both hands however more pronounced in the left thumb area with ischemic changes and necrosis. Tips of the other fingers in the right hand are also noted to show some dark discoloration at the tips mostly. significant edema noted in both lower extremities. And both are seeping serous drainage. - Labs CBC & Chem 7: 08/18/18 03:51 08/18/18 03:51 Labs: Abnormal Lab Results - Last 24 Hours (Table) 08/11/18 08/17/18 08/17/18 Range/Units 09:50 17:51 20:46 WBC (3.8-10.6) k/uL RBC (3.80-5.40) m/uL Hgb (11.4-16.0) gm/dL Hct (34.0-46.0) % RDW (11.5-15.5) % Plt Count (150-450) k/uL Neutrophils # (Manual) (1.3-7.7) k/uL Lymphocytes # (Manual) (1.0-4.8) k/uL Nucleated RBCs (0-0) /100 WBC ABG pH 7.22 L (7.35-7.45) ABG pCO2 48 H (35-45) mmHg ABG pO2 67 L (83-108) mmHg ABG HCO3 20 L (21-25) mmol/L ABG O2 Saturation 91.9 L (94-97) % Sodium (137-145) mmol/L Carbon Dioxide (22-30) mmol/L BUN (7-17) mg/dL Creatinine (0.52-1.04) mg/dL Glucose (74-99) mg/dL POC Glucose (mg/dL) 178 H (75-99) mg/dL Calcium (8.4-10.2) mg/dL Phosphorus (2.5-4.5) mg/dL Alkaline Phosphatase (38-126) U/L Total Protein (6.3-8.2) g/dL Albumin (3.5-5.0) g/dL Crossmatch See Detail 08/17/18 08/17/18 08/17/18 Range/Units 21:15 21:24 21:24 WBC (3.8-10.6) k/uL RBC 2.27 L (3.80-5.40) m/uL Hgb 6.9 L* (11.4-16.0) gm/dL Hct 21.9 L (34.0-46.0) % RDW 19.6 H (11.5-15.5) % Plt Count 53 L (150-450) k/uL Neutrophils # (Manual) (1.3-7.7) k/uL Lymphocytes # (Manual) (1.0-4.8) k/uL Nucleated RBCs (0-0) /100 WBC ABG pH (7.35-7.45) ABG pCO2 (35-45) mmHg ABG pO2 (83-108) mmHg ABG HCO3 (21-25) mmol/L ABG O2 Saturation (94-97) % Sodium (137-145) mmol/L Carbon Dioxide (22-30) mmol/L BUN (7-17) mg/dL Creatinine (0.52-1.04) mg/dL Glucose (74-99) mg/dL POC Glucose (mg/dL) 193 H (75-99) mg/dL Calcium (8.4-10.2) mg/dL Phosphorus (2.5-4.5) mg/dL Alkaline Phosphatase (38-126) U/L Total Protein (6.3-8.2) g/dL Albumin (3.5-5.0) g/dL Crossmatch See Detail 08/17/18 08/17/18 08/18/18 Range/Units 22:19 23:18 00:03 WBC (3.8-10.6) k/uL RBC (3.80-5.40) m/uL Hgb (11.4-16.0) gm/dL Hct (34.0-46.0) % RDW (11.5-15.5) % Plt Count (150-450) k/uL Neutrophils # (Manual) (1.3-7.7) k/uL Lymphocytes # (Manual) (1.0-4.8) k/uL Nucleated RBCs (0-0) /100 WBC ABG pH (7.35-7.45) ABG pCO2 (35-45) mmHg ABG pO2 (83-108) mmHg ABG HCO3 (21-25) mmol/L ABG O2 Saturation (94-97) % Sodium (137-145) mmol/L Carbon Dioxide (22-30) mmol/L BUN (7-17) mg/dL Creatinine (0.52-1.04) mg/dL Glucose (74-99) mg/dL POC Glucose (mg/dL) 163 H 181 H 173 H (75-99) mg/dL Calcium (8.4-10.2) mg/dL Phosphorus (2.5-4.5) mg/dL Alkaline Phosphatase (38-126) U/L Total Protein (6.3-8.2) g/dL Albumin (3.5-5.0) g/dL Crossmatch 08/18/18 08/18/18 08/18/18 Range/Units 01:20 01:53 03:00 WBC (3.8-10.6) k/uL RBC (3.80-5.40) m/uL Hgb (11.4-16.0) gm/dL Hct (34.0-46.0) % RDW (11.5-15.5) % Plt Count (150-450) k/uL Neutrophils # (Manual) (1.3-7.7) k/uL Lymphocytes # (Manual) (1.0-4.8) k/uL Nucleated RBCs (0-0) /100 WBC ABG pH (7.35-7.45) ABG pCO2 (35-45) mmHg ABG pO2 (83-108) mmHg ABG HCO3 (21-25) mmol/L ABG O2 Saturation (94-97) % Sodium (137-145) mmol/L Carbon Dioxide (22-30) mmol/L BUN (7-17) mg/dL Creatinine (0.52-1.04) mg/dL Glucose (74-99) mg/dL POC Glucose (mg/dL) 151 H 160 H 150 H (75-99) mg/dL Calcium (8.4-10.2) mg/dL Phosphorus (2.5-4.5) mg/dL Alkaline Phosphatase (38-126) U/L Total Protein (6.3-8.2) g/dL Albumin (3.5-5.0) g/dL Crossmatch 08/18/18 08/18/18 08/18/18 Range/Units 03:51 03:51 03:59 WBC 12.5 H (3.8-10.6) k/uL RBC 2.97 L (3.80-5.40) m/uL Hgb 9.2 L D (11.4-16.0) gm/dL Hct 28.8 L (34.0-46.0) % RDW 18.3 H (11.5-15.5) % Plt Count 62 L (150-450) k/uL Neutrophils # (Manual) 11.80 H (1.3-7.7) k/uL Lymphocytes # (Manual) 0.50 L (1.0-4.8) k/uL Nucleated RBCs 4 H (0-0) /100 WBC ABG pH (7.35-7.45) ABG pCO2 (35-45) mmHg ABG pO2 (83-108) mmHg ABG HCO3 (21-25) mmol/L ABG O2 Saturation (94-97) % Sodium 135 L (137-145) mmol/L Carbon Dioxide 20 L (22-30) mmol/L BUN 81 H (7-17) mg/dL Creatinine 1.56 H (0.52-1.04) mg/dL Glucose 145 H (74-99) mg/dL POC Glucose (mg/dL) 153 H (75-99) mg/dL Calcium 8.3 L (8.4-10.2) mg/dL Phosphorus 5.0 H (2.5-4.5) mg/dL Alkaline Phosphatase 134 H (38-126) U/L Total Protein 4.9 L (6.3-8.2) g/dL Albumin 2.1 L (3.5-5.0) g/dL Crossmatch 08/18/18 08/18/18 08/18/18 Range/Units 08:12 09:21 12:31 WBC (3.8-10.6) k/uL RBC (3.80-5.40) m/uL Hgb (11.4-16.0) gm/dL Hct (34.0-46.0) % RDW (11.5-15.5) % Plt Count (150-450) k/uL Neutrophils # (Manual) (1.3-7.7) k/uL Lymphocytes # (Manual) (1.0-4.8) k/uL Nucleated RBCs (0-0) /100 WBC ABG pH 7.20 L (7.35-7.45) ABG pCO2 52 H (35-45) mmHg ABG pO2 67 L (83-108) mmHg ABG HCO3 20 L (21-25) mmol/L ABG O2 Saturation 91.7 L (94-97) % Sodium (137-145) mmol/L Carbon Dioxide (22-30) mmol/L BUN (7-17) mg/dL Creatinine (0.52-1.04) mg/dL Glucose (74-99) mg/dL POC Glucose (mg/dL) 130 H 140 H (75-99) mg/dL Calcium (8.4-10.2) mg/dL Phosphorus (2.5-4.5) mg/dL Alkaline Phosphatase (38-126) U/L Total Protein (6.3-8.2) g/dL Albumin (3.5-5.0) g/dL Crossmatch 08/18/18 Range/Units 14:35 WBC (3.8-10.6) k/uL RBC (3.80-5.40) m/uL Hgb (11.4-16.0) gm/dL Hct (34.0-46.0) % RDW (11.5-15.5) % Plt Count (150-450) k/uL Neutrophils # (Manual) (1.3-7.7) k/uL Lymphocytes # (Manual) (1.0-4.8) k/uL Nucleated RBCs (0-0) /100 WBC ABG pH (7.35-7.45) ABG pCO2 (35-45) mmHg ABG pO2 (83-108) mmHg ABG HCO3 (21-25) mmol/L ABG O2 Saturation (94-97) % Sodium (137-145) mmol/L Carbon Dioxide (22-30) mmol/L BUN (7-17) mg/dL Creatinine (0.52-1.04) mg/dL Glucose (74-99) mg/dL POC Glucose (mg/dL) 146 H (75-99) mg/dL Calcium (8.4-10.2) mg/dL Phosphorus (2.5-4.5) mg/dL Alkaline Phosphatase (38-126) U/L Total Protein (6.3-8.2) g/dL Albumin (3.5-5.0) g/dL Crossmatch Microbiology - Last 24 Hours (Table) 08/13/18 14:50 Blood Culture - Preliminary Blood No Growth after 96 hours Assessment and Plan Assessment: Impression: Acute hypoxic respiratory failure secondary to ARDS secondary to abdominal sepsis.fecal peritonitis 2 complicated diverticular abscess with bowel perforation, status post exploratory laparotomy and sigmoid colectomy and ostomy appendectomy postoperative day #19 3 status post repeat exploratory laparotomy and small bowel resection and abscess drainage and diverting ileostomy postoperative day #10 4 acute septic shock secondary to intra-abdominal abscess 5 excessive volume overload and hypoalbuminemia contributing to significant swelling and third spacing with significant bipedal edema. Patient is intravascularly depleted. Did not respond to albumin and Lasix infusions. 6 open wound/abdominal wound with necrosis of the wound surfaces status post debridement. 7 extensive subcutaneous emphysema probably from pneumomediastinum and status post horizontal incision made in the skin and fascia to allow drainage of subcutaneous air. 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 May require surgical resection. 11 status post tracheostomy, postoperative day #4 12 acute kidney injury secondary to acute tubular necrosis. And sepsis. And the patient is also intravascularly depleted contributing to her acute kidney injury. Recommendation: Continue present supportive care measures, continue ventilatory support, nutritional support,/TPN. Continue GI and DVT prophylaxis. PEEP is back up to 12, FiO2 remains at 55% patient is not ready for any weaning trials. I believe her prognosis is extremely poor, and chances of pulling through this is less than 5%. has been updated on a daily basis. continue bicarb drip, continue present antibiotics, antifungal therapy, could not hold sedation medication today as the patient became extremely agitated tachycardic and tachypneic. nephrology was consulted and recommended that we continue bicarb drip, continue Lasix intermittently. Again overall the patient is extremely ill, prognosis is extremely poor, and is updated on the bases on her condition. Comes next week, if no major changes noted, may have to consult ethics committee. Will follow. Critical care time is 34 minutes Time with Patient: Greater than 30
--- NOTE | 2018-08-18 16:48 | P.PN ---
Subjective Progress Note Date: 08/18/18 Principal diagnosis: abdominal pain Patient is a 58-year-old female with no significant past medical history o who presented to the emergency department at the recommendations of her PCP for dehydration, nausea, and vomiting. In the emergency department she underwent an extensive evaluation. Computed tomography scan of the abdomen showed diverticular abscess with partial bowel obstruction she was admitted for further management. Initial laboratory analysis showed a sodium of 132, carbon dioxide 21, and a negative urinalysis. She was started on IV fluids, antibiotics and was admitted. General surgery was consulted. Patient initially wanted conservative management did not want surgery. Interventional radiology was consulted and she underwent abscess ranges placement of percutaneous drain on 07/28/18. She was found to have an elevated PTT and hematology was consulted. They felt that this was likely due to poor nutritional intake and ordered additional vitamin K. Her PT INR normalized with additional vitamin K. She was seen by ID who discontinue meropenem and started her on Zosyn. She had initially been progressing well. Overnight on she developed increasing pain and nausea. She started requiring IV narcotics for treatment of her pain. She then became tachycardic. Morning blood work on 07/30 showed a depressed white blood cell count at 2.5, and carbon dioxide of 12. Stat CT with IV contrast as well as a stat lactic acid and a [address] abdomen and pelvis showed free air. Case discussed with Dr. Jacobson and patient was taken urgently to the operating room for ex-lap due to perforated viscus. During the procedure, the patient was noted to have fecal peritonitis and underwent a sigmoid colectomy with end colostomy. She was transferred to the ICU post-operatively and was started on IV pressors. The patient was extubated on 07/31/18. However, she continued to require Levophed. ID recommended the patient to be switched to Unasyn and Flagyl. A random cortisol level was drawn and was 22, for which patient was started on hydrocortisone for suspected adrenal insufficiency. On 08/02 the patient developed respiratory distress and was re-intubated. She was also noted to have L thumb discoloration with history of art line placement on that wrist. Vascular surgery was consulted and did not recommend urgent surgical intervention. Her pressors were able to taken off momentarily on 08/06 but required to be restarted on 2/4. She had a dusky appearance to the wound edges and was taken back to the OR on 08/09 and underwent small bowel resection with abdominal wound debridement. She underwent an echocardiogram which showed a hyperdynamic left ventricle with ejection fraction 70%. She was weaned off pressors by 08/11/18. Patient developed subcutaneous emphysema on the morning of 08/11. Chest x-ray showed no evidence of pneumothorax. Determine and anticipated complication of high PEEP ventilation required for her ARDS. Her hgb dropped on the morning of 08/11 and she was transfused 2 units of packed red blood cells. She was maintained coverage and broad-spectrum antibiotics with Vanco, Zosyn, and Eraxis. She had her trach placed on 08/14 along with debridement of her abdominal wall wound. She had placement of a right brachial art line on 08/[address] Carlisle. Her Solu-Cortef was decreased and 08/15 her norepinephrine did have to be restarted but was stopped by 08/16. On 08/16 surgery felt that there will be no additional surgical procedures performed. She did have an elevated vancomycin trough on 08/15 and then developed some elevated creatinines. Nephrology was consulted who recommended resuming Lasix. Her hemoglobin dropped overnight on 08/18 and she was given 1 additional unit of packed red blood cells. Patient seen and examined at bedside. Sedated on vent. Received 1 unit packed red blood cells overnight. Propofol was momentarily held as bottles were changed and patient immediately started breathing over the vent pressuring a respiratory rate of 45. She is having multiple areas of skin breakdown secondary to blisters that have unroofed from her diffuse anasarca. Objective - Vital Signs Vital signs: Vital Signs Temp 97.6 F 08/18/18 12:00 Pulse 96 08/18/18 15:35 Resp 36 H 08/18/18 15:00 BP 128/52 08/17/18 23:59 Pulse Ox 90 L 08/18/18 15:00 Intake & Output 08/17/18 08/18/18 08/18/18 18:59 06:59 18:59 Intake Total 7519.843 5779.463 981 Output Total 944 540 200 Balance 6187.126 1005.463 781 Weight 79.6 kg 84.1 kg Intake: IV 730 1621 981 Anidulafungin 100 mg In 130 100 Sodium Chloride 0.9% 100 ml @ 84 mls/hr IVPB DAILY [facility] Rx#:[id number] Dextrose 5% in Water 1, 175 000 ml @ 75 mls/hr IV . [id number] [facility] with Sodium Bicarb (1 Meq/ml) 150 ml Rx#:[id number] Mvi, Adult No.4 with Vit 570 K 10 ml Trace (Conc-1Ml/ Dose) 1 ml In Amino Acid 5%-D15w+Lytes*E* 1,000 ml @ 30 mls/hr IV .Q24H [facility] Rx#:[id number] Mvi, Adult No.4 with Vit 90 K 10 ml Trace (Conc-1Ml/ Dose) 1 ml Parenteral Electrolytes 20 ml Potassium Chloride 20 meq In Amino Acid 5%-D15w 1, 000 ml @ 45 mls/hr IV . Q23H8M [facility] Rx#:[id number] Piperacillin-Tazobactam 3 200 100 100 .375 gm In Sodium Chloride 0.9% 100 ml @ 25 mls/hr IVPB Q8HR [facility]ESS[facility] Rx# :[id number] Pressure bag 36 21 Sodium Chloride 0.45% 1, 400 650 400 000 ml @ 50 mls/hr IV . Q20H [facility] Rx#:[id number] TPN 360 Intake, IV Titration 1266.451 238.463 Amount Insulin Regular 100 unit 53.004 In Sodium Chloride 0.9% 100 ml @ Per Protocol IV .Q0M [facility] Rx#:[id number] Mvi, Adult No.4 with Vit 974.25 K 10 ml Trace (Conc-1Ml/ Dose) 1 ml Calcium Gluconate 1 gm Magnesium Sulfate gm 0.5 gm Sodium Acetate 20 meq In Amino Acid 5%-D15w 1,000 ml @ 45 mls/hr IV .[id number] [facility] Rx#:[id number] Propofol 1,000 mg In 200 171.403 Empty Bag 1 bag @ Titrate IV .Q0M [facility] Rx#: [id number] fentaNYL (PF) 1,000 mcg 92.201 14.056 In Sodium Chloride 0.9% 80 ml @ 0.62 MCG/KG/HR 5. 02 mls/hr IV .[id number] [facility] Rx#:[id number] Blood Product 310 Rc Cpda-1 Unit 310 [id number] Lipid 0 Sodium Chloride 0.45% 1, 0 000 ml @ 50 mls/hr IV . Q20H [facility] Rx#:[id number] Output: Drainage 100 135 Left Upper Abdomen 10 Right Abdomen 100 Right Lower Abdomen 25 Right Upper Abdomen 100 Urine 344 295 200 Stool 500 110 Other: Voiding Method Indwelling Catheter Indwelling Catheter Indwelling Catheter # Voids 2 ABP, PAP, CO, CI - Last Documented Arterial Blood Pressure 117/50 - Exam General: ill appearing, sedated on vent, mod distress, appears older than stated age Derm: cool, dry, left thumb dusky no skin sloughing, dusky appearance all finger tips right hand. Head: atraumatic, normocephalic, symmetric Eyes: PERRL, no lid lesion anicteric sclera Mouth: no lip lesion, mucus membranes moist Cardiovascular: S1S2 tachy, no murmur, positive posterior tibial pulse bilateral , anarsarca Lungs: course bs bilateral, no accessory muscle use, on vent with trach Abdominal: soft, nontender to palpation through sedation, no guarding, no appreciable organomegaly, dressing with moderate soak through, + ostomy X 2. Ext: no gross muscle atrophy, diffuse anasarca with blisters, no contractures Neuro: no withdrawal to pain but currently on sedation. Psych:sedated on vent - Labs CBC & Chem 7: 08/18/18 03:51 08/18/18 03:51 Labs: Abnormal Lab Results - Last 24 Hours (Table) 08/11/18 08/17/18 08/17/18 Range/Units 09:50 16:07 17:51 WBC (3.8-10.6) k/uL RBC (3.80-5.40) m/uL Hgb (11.4-16.0) gm/dL Hct (34.0-46.0) % RDW (11.5-15.5) % Plt Count (150-450) k/uL Neutrophils # (Manual) (1.3-7.7) k/uL Lymphocytes # (Manual) (1.0-4.8) k/uL Nucleated RBCs (0-0) /100 WBC ABG pH (7.35-7.45) ABG pCO2 (35-45) mmHg ABG pO2 (83-108) mmHg ABG HCO3 (21-25) mmol/L ABG O2 Saturation (94-97) % Sodium (137-145) mmol/L Carbon Dioxide (22-30) mmol/L BUN (7-17) mg/dL Creatinine (0.52-1.04) mg/dL Glucose (74-99) mg/dL POC Glucose (mg/dL) 169 H 178 H (75-99) mg/dL Calcium (8.4-10.2) mg/dL Phosphorus (2.5-4.5) mg/dL Alkaline Phosphatase (38-126) U/L Total Protein (6.3-8.2) g/dL Albumin (3.5-5.0) g/dL Crossmatch See Detail 08/17/18 08/17/18 08/17/18 Range/Units 20:46 21:15 21:24 WBC (3.8-10.6) k/uL RBC 2.27 L (3.80-5.40) m/uL Hgb 6.9 L* (11.4-16.0) gm/dL Hct 21.9 L (34.0-46.0) % RDW 19.6 H (11.5-15.5) % Plt Count 53 L (150-450) k/uL Neutrophils # (Manual) (1.3-7.7) k/uL Lymphocytes # (Manual) (1.0-4.8) k/uL Nucleated RBCs (0-0) /100 WBC ABG pH 7.22 L (7.35-7.45) ABG pCO2 48 H (35-45) mmHg ABG pO2 67 L (83-108) mmHg ABG HCO3 20 L (21-25) mmol/L ABG O2 Saturation 91.9 L (94-97) % Sodium (137-145) mmol/L Carbon Dioxide (22-30) mmol/L BUN (7-17) mg/dL Creatinine (0.52-1.04) mg/dL Glucose (74-99) mg/dL POC Glucose (mg/dL) 193 H (75-99) mg/dL Calcium (8.4-10.2) mg/dL Phosphorus (2.5-4.5) mg/dL Alkaline Phosphatase (38-126) U/L Total Protein (6.3-8.2) g/dL Albumin (3.5-5.0) g/dL Crossmatch 08/17/18 08/17/18 08/17/18 Range/Units 21:24 22:19 23:18 WBC (3.8-10.6) k/uL RBC (3.80-5.40) m/uL Hgb (11.4-16.0) gm/dL Hct (34.0-46.0) % RDW (11.5-15.5) % Plt Count (150-450) k/uL Neutrophils # (Manual) (1.3-7.7) k/uL Lymphocytes # (Manual) (1.0-4.8) k/uL Nucleated RBCs (0-0) /100 WBC ABG pH (7.35-7.45) ABG pCO2 (35-45) mmHg ABG pO2 (83-108) mmHg ABG HCO3 (21-25) mmol/L ABG O2 Saturation (94-97) % Sodium (137-145) mmol/L Carbon Dioxide (22-30) mmol/L BUN (7-17) mg/dL Creatinine (0.52-1.04) mg/dL Glucose (74-99) mg/dL POC Glucose (mg/dL) 163 H 181 H (75-99) mg/dL Calcium (8.4-10.2) mg/dL Phosphorus (2.5-4.5) mg/dL Alkaline Phosphatase (38-126) U/L Total Protein (6.3-8.2) g/dL Albumin (3.5-5.0) g/dL Crossmatch See Detail 08/18/18 08/18/18 08/18/18 Range/Units 00:03 01:20 01:53 WBC (3.8-10.6) k/uL RBC (3.80-5.40) m/uL Hgb (11.4-16.0) gm/dL Hct (34.0-46.0) % RDW (11.5-15.5) % Plt Count (150-450) k/uL Neutrophils # (Manual) (1.3-7.7) k/uL Lymphocytes # (Manual) (1.0-4.8) k/uL Nucleated RBCs (0-0) /100 WBC ABG pH (7.35-7.45) ABG pCO2 (35-45) mmHg ABG pO2 (83-108) mmHg ABG HCO3 (21-25) mmol/L ABG O2 Saturation (94-97) % Sodium (137-145) mmol/L Carbon Dioxide (22-30) mmol/L BUN (7-17) mg/dL Creatinine (0.52-1.04) mg/dL Glucose (74-99) mg/dL POC Glucose (mg/dL) 173 H 151 H 160 H (75-99) mg/dL Calcium (8.4-10.2) mg/dL Phosphorus (2.5-4.5) mg/dL Alkaline Phosphatase (38-126) U/L Total Protein (6.3-8.2) g/dL Albumin (3.5-5.0) g/dL Crossmatch 08/18/18 08/18/18 08/18/18 Range/Units 03:00 03:51 03:51 WBC 12.5 H (3.8-10.6) k/uL RBC 2.97 L (3.80-5.40) m/uL Hgb 9.2 L D (11.4-16.0) gm/dL Hct 28.8 L (34.0-46.0) % RDW 18.3 H (11.5-15.5) % Plt Count 62 L (150-450) k/uL Neutrophils # (Manual) 11.80 H (1.3-7.7) k/uL Lymphocytes # (Manual) 0.50 L (1.0-4.8) k/uL Nucleated RBCs 4 H (0-0) /100 WBC ABG pH (7.35-7.45) ABG pCO2 (35-45) mmHg ABG pO2 (83-108) mmHg ABG HCO3 (21-25) mmol/L ABG O2 Saturation (94-97) % Sodium 135 L (137-145) mmol/L Carbon Dioxide 20 L (22-30) mmol/L BUN 81 H (7-17) mg/dL Creatinine 1.56 H (0.52-1.04) mg/dL Glucose 145 H (74-99) mg/dL POC Glucose (mg/dL) 150 H (75-99) mg/dL Calcium 8.3 L (8.4-10.2) mg/dL Phosphorus 5.0 H (2.5-4.5) mg/dL Alkaline Phosphatase 134 H (38-126) U/L Total Protein 4.9 L (6.3-8.2) g/dL Albumin 2.1 L (3.5-5.0) g/dL Crossmatch 08/18/18 08/18/18 08/18/18 Range/Units 03:59 08:12 09:21 WBC (3.8-10.6) k/uL RBC (3.80-5.40) m/uL Hgb (11.4-16.0) gm/dL Hct (34.0-46.0) % RDW (11.5-15.5) % Plt Count (150-450) k/uL Neutrophils # (Manual) (1.3-7.7) k/uL Lymphocytes # (Manual) (1.0-4.8) k/uL Nucleated RBCs (0-0) /100 WBC ABG pH 7.20 L (7.35-7.45) ABG pCO2 52 H (35-45) mmHg ABG pO2 67 L (83-108) mmHg ABG HCO3 20 L (21-25) mmol/L ABG O2 Saturation 91.7 L (94-97) % Sodium (137-145) mmol/L Carbon Dioxide (22-30) mmol/L BUN (7-17) mg/dL Creatinine (0.52-1.04) mg/dL Glucose (74-99) mg/dL POC Glucose (mg/dL) 153 H 130 H (75-99) mg/dL Calcium (8.4-10.2) mg/dL Phosphorus (2.5-4.5) mg/dL Alkaline Phosphatase (38-126) U/L Total Protein (6.3-8.2) g/dL Albumin (3.5-5.0) g/dL Crossmatch 08/18/18 08/18/18 Range/Units 12:31 14:35 WBC (3.8-10.6) k/uL RBC (3.80-5.40) m/uL Hgb (11.4-16.0) gm/dL Hct (34.0-46.0) % RDW (11.5-15.5) % Plt Count (150-450) k/uL Neutrophils # (Manual) (1.3-7.7) k/uL Lymphocytes # (Manual) (1.0-4.8) k/uL Nucleated RBCs (0-0) /100 WBC ABG pH (7.35-7.45) ABG pCO2 (35-45) mmHg ABG pO2 (83-108) mmHg ABG HCO3 (21-25) mmol/L ABG O2 Saturation (94-97) % Sodium (137-145) mmol/L Carbon Dioxide (22-30) mmol/L BUN (7-17) mg/dL Creatinine (0.52-1.04) mg/dL Glucose (74-99) mg/dL POC Glucose (mg/dL) 140 H 146 H (75-99) mg/dL Calcium (8.4-10.2) mg/dL Phosphorus (2.5-4.5) mg/dL Alkaline Phosphatase (38-126) U/L Total Protein (6.3-8.2) g/dL Albumin (3.5-5.0) g/dL Crossmatch Microbiology - Last 24 Hours (Table) 08/13/18 14:50 Blood Culture - Preliminary Blood No Growth after 96 hours Assessment and Plan Assessment: Diverticulitis with abscess and bowel perforation with septic shock s/p sigmoid colectomy, small bowel resection X 2 and appendectomy and debridement of wound necrosis - Surgery recs no additional procedures - ID recs: polymicrobial infection Eraxis, zosyn, off vanco after elevated level Non anion gap metabolic and respiratory acidosis, improving - on Bicarb gtt - repeat ABG and BMP in AM ANDRY - had elevated vanc level - nephro recs: lasix - avoid additional nephrotoxic agents - repeat BMP in AM ARDS/ MODS (Multiorgan failure) - treatment of infections - critical care recs Pneumomediastinum - likely due to high levels of peep - improving - continue to follow CXR - pulmonary recs Anemia - s/p 1 unit pRBC 08/17 and 3 units in total - follow CBC - transfuse for HgB <6 Relative adrenal insufficiency - stress dose steroids, decrease 08/15 decrease again 08/19 Hyperglycemia due to steroids and TPN - prediabetes - A1C 6.1, diet modification on discharge - follow BS and SSI Acute hypoxic respiratory failure due ARDS - vent management per ICU team Post-op ileus - on TPN - NGT to suction - general surgery recs Severe Protein calorie malnutrition - on TPN Left thumb ischemia - vascular surgery recs appreciated, conservative management at this time. Thromboctypenia, reactive to sepsis - follow CBC - HIT AB negative Hyponatremia, hypokalemia, hypophosphatemia, and hypomagnesemia resolved Coagulopathy, resolved Anion Gap metabolic acidosis, resolved lactic acidosis, improved Transaminitis, resolved DVT prophylaxis: SCDS due to thrombocytopenia Anticipated discharge: undetermined Place:[facility] A total of 35 minutes, complex care of this patient.
[2018-08-18 18:31] LABS: Glucose,Whole Blood 192 mg/dL (75-99)
[2018-08-19] MEDS: SODIUM CHLORIDE 0.45% 1,000 ML IV SCH (00:11)
[2018-08-19] MEDS: fentaNYL (PF) 1,000 MCG in SODIUM CHLORIDE 0.9% 80 ML IV SCH ×2 (00:21→18:32)
[2018-08-19 00:22] LABS: Glucose,Whole Blood 177 mg/dL (75-99)
[2018-08-19 00:22] LABS: Glucose,Whole Blood 70 mg/dL (75-99)
[2018-08-19] MEDS: IPRATROPIUM-ALBUTEROL 3 ML NEB INHALATION PRN ×2 (03:14→23:30)
[2018-08-19] MEDS ORDERED: CISATRACURIUM 2 MG/ML 5 ML VIAL IV ONE (04:13)
[2018-08-19] MEDS: CISATRACURIUM 200 MG in SODIUM CHLORIDE 0.9% 180 ML IV SCH (04:33)
[2018-08-19 04:35] LABS: Anisocytosis Slight; HCT 27.7 % (34.0-46.0); HGB 8.9 gm/dL (11.4-16.0); Hypochromasia Moderate; MCH 30.6 pg (25.0-35.0); MCV 95.6 fL (80.0-100.0); Macrocytosis Slight; Mean Platelet Volume 10.6; Poikilocytosis Moderate; RBC 2.89 m/uL (3.80-5.40); RDW 19.1 % (11.5-15.5)
[2018-08-19 04:44] LABS: Magnesium 1.9 mg/dL (1.6-2.3); Potassium 4.4 mmol/L (3.5-5.1); Total Bilirubin 1.2 mg/dL (0.2-1.3); Total Protein 4.9 g/dL (6.3-8.2)
[2018-08-19 04:48] LABS: Vancomycin,Random 24.1 ug/mL
[2018-08-19 05:46] LABS: Glucose,Whole Blood 139 mg/dL (75-99)
[2018-08-19] MEDS: INSULIN ASPART (NovoLOG) 100 UNIT/ML VIAL SQ SCH ×3 (05:49→18:29)
[2018-08-19] MEDS: METOCLOPRAMIDE 5 MG/ML 2 ML VIAL IVP SCH ×3 (05:50→18:29)
[2018-08-19 06:27] LABS: Band Neutrophils % 28 %; Lymphocytes # (M) 0.62 k/uL (1.0-4.8); Metamyelocytes # (M) 0.21 k/uL (0); Metamyelocytes % 1 %; Monocytes # (M) 0.21 k/uL (0-1.0); Neutrophils % (M) 69 %; Nucleated Red Blood Cells 2 /100 WBC (0-0); Platelet Count 64 k/uL (150-450); Total Cells Counted 200; WBC 20.7 k/uL (3.8-10.6)
[2018-08-19 06:30] LABS: Polychromasia Present
[2018-08-19 06:31] LABS: Basophilic Stippling Present
[2018-08-19] MEDS: [UNRECOGNIZED DRUG - REMARK] IV SCH ×6 (07:00)
[2018-08-19] MEDS: IPRATROPIUM-ALBUTEROL 3 ML NEB INHALATION SCH ×4 (07:31→19:10)
--- NOTE | 2018-08-19 07:43 | XR ---
EXAMINATION TYPE: XR chest 1V portable DATE OF EXAM: 08/19/2018 COMPARISON: 08/18/2018 HISTORY: SOB, Follow Up FINDINGS: Indwelling tubes and catheters are unchanged. Perihilar and basilar infiltrates are unchanged. Stable appearance of the cardio-mediastinal structures at this time. Pleural effusion unchanged. IMPRESSION: 1. Stable portable chest. Clinical correlation and follow up until resolution is recommended.
--- NOTE | 2018-08-19 07:55 | PN ---
PROGRESS NOTE DATE OF SERVICE: 08/18/2018. REASON FOR FOLLOWUP: Abdominal sepsis. INTERVAL HISTORY: The patient is currently afebrile. The patient is hemodynamically stable. Not on any pressor support. FiO2 currently at 55%. The patient remains to be sedated on the vent as the patient gets very jittery when sedation is cut back per the medical team. PHYSICAL EXAMINATION: Blood pressure is 145/58 with a pulse of 103, temperature is 97.6. She is 94% on 65% FiO2. General description is middle-aged female lying in bed in no distress. Respiratory system: Unlabored breathing. Clear to auscultation anteriorly. Heart S1, S2. Regular rate and rhythm. ABDOMEN: Soft. Midline incision is currently packed. Did have output both in the ostomy and colostomy. Extremities with 2+ edema of feet. LABS: Hemoglobin 9.1, white count 12.5, BUN of 81, creatinine 1.53. DIAGNOSTIC IMPRESSION AND PLAN: Patient with abdominal sepsis from a perforated sigmoid diverticulitis followed by small bowel leak status post extensive surgery. The patient failed to be extubated tracheostomy. The patient overall prognosis remains to be guarded. The patient is currently broadly covered with Zosyn, vancomycin and that will be continued for now watching her clinical course and kidney function closely. Continue supportive care. MMODL / IJN: [id number] /
[2018-08-19 08:38] LABS: ABG HCO3 22 mmol/L (21-25); ABG PCO2 60 mmHg (35-45); ABG PO2 78 mmHg (83-108); ABG TCO2 24 mmol/L (19-24)
[2018-08-19 08:41] LABS: ABG PH 7.16 (7.35-7.45)
[2018-08-19] MEDS: HYDROCORTISONE SUCCINATE 100 MG/2 ML VIAL IV SCH ×2 (09:26→16:40)
[2018-08-19] MEDS: PANTOPRAZOLE 40 MG/10 ML VIAL IVP SCH (09:26)
[2018-08-19] MEDS: PIPERACILLIN-TAZOBACTAM 3.375 GM in SODIUM CHLORIDE 0.9% 100 ML IVPB SCH ×3 (09:58→16:41)
[2018-08-19] MEDS: ANIDULAFUNGIN 100 MG in SODIUM CHLORIDE 0.9% 100 ML IVPB SCH (10:18)
[2018-08-19] MEDS: PROPOFOL 1,000 MG in EMPTY BAG 1 BAG IV SCH ×2 (11:44→17:02)
[2018-08-19] MEDS: CHLORHEXIDINE GLUCONATE 15 ML CUP MUCOUS MEM SCH ×2 (11:49→20:32)
[2018-08-19 12:14] LABS: Glucose,Whole Blood 101 mg/dL (75-99)
[2018-08-19] MEDS: DEXTROSE 5% IN WATER 1,000 ML with SODIUM BICARB (1 MEQ/ML) 150 ML IV SCH (12:22)
--- NOTE | 2018-08-19 13:07 | P.PN ---
Subjective Progress Note Date: 08/19/18 Principal diagnosis: Acute hypoxic respiratory failure secondary to ARDS, and abdominal sepsis. Patient was reevaluated today on 08/14/2018, remains on mechanical ventilation, she remains on relatively high PEEP of 12, and high FiO2 of 65% with marginal O2 saturation. O2 saturation was 93% at best. ABG could not be done this morning, the right radial arterial line was nonfunctional and it was removed. And she had issues related to her left radial arterial line which was discontinued because of ischemic changes of the left thumb. Patient remains on assist control rate of 30 tidal volume of 350 PEEP of 12 and FiO2 of 65%. Remains on fentanyl roughly about 50 mcg/m, insulin drip at 4.5 units per hour, and propofol drip at 40 mcg/kg/m. Considering the patient is still requiring high FiO2 and high PEEP, and she seems to be a bit tachypneic, I went ahead and recommended that the patient gets to be placed on Nimbex. She is scheduled to undergo tracheostomy today. Chest x-ray showed significant bilateral interstitial changes consistent with ARDS, significant subcutaneous emphysema is noted, no evidence of pneumothorax, and no evidence of pneumomediastinum. Fortunately, the patient is not requiring any pressors at this point. Urine output seems to be adequate, the pressure is adequate. She does have a net positive fluid balance. There is however significant amount of seepage noted from the skin surfaces specially skin of lower extremities. Colostomy is nonfunctional ileostomy is functioning. Patient remains on TPN. Necrotic left stump remains about the same. Patient was reevaluated today on 08/15/2018, she underwent tracheostomy yesterday. Postoperative ABG was poor, hence she was placed back on 100% FiO2 overnight, PEEP remains at 12, her gases this morning showed significant improvement, hence I was able to cut down the FiO2 to 55%, and I increased the PEEP to 15. Follow-up ABG this morning showed a pO2 of 98, pCO2 of 74 pH of 7.13. CBC is showing leukocytosis again with WBC count of 23.5, hemoglobin is 10. Platelets are 118,000. Basic metabolic profile is normal, renal profile showed a BUN of 48 creatinine of 0.75. Patient is now on multiple drips including propofol, 40 mcg/kg/m, fentanyl at 25 mcg/h, norepinephrine at 3.5 mcg /m. She is also on Nimbex drip. Titrated as per protocol. Her ventilator settings this morning were adjusted, she is presently on assist control rate of 56. Tidal volume of 350, FiO2 is 55%, and PEEP is 15. Chest x-ray continues to show diffuse bilateral interstitial infiltrates and airspace disease. No evidence of pneumothorax, and no evidence of pneumomediastinum. Recent blood cultures from 08/13/2018 remain negative. And urine cultures have been negative since 08/09/2018. Patient remains on DuoNeb updrafts,anidulafungin, Solu-Cortef which I will cut down to 50 mg every 8 hours, Zosyn, and vancomycin. Patient was reevaluated in the ICU again today on 08/16/2018. Patient remains on mechanical ventilation via tracheostomy. Remains on the same ventilator settings which are FiO2 of 50%, tidal volume of 350 assist-control rate is 36 PEEP remains high at 15. ABG this morning was marginal pO2 was noted to be 64 pCO2 is 56 pH of 7.19. Patient remains on multiple drips including propofol at 50 mcg/kg/m, Nimbex 1 mcg/kg/m which I plan to hold today fentanyl at 0.67 mcg/ kg/h and she is on norepinephrine at 0.08 mcg/kg/m. Urine output is marginal at best, patient is quite swollen and edematous, but I believe she is intravascularly depleted. Did not respond to albumin infusions followed by Lasix yesterday, hence I will give the patient fluids today, and hopefully will improve her urine output and bit more. May even consider a sodium bicarb drip, although the acidosis is mostly respiratory in nature, does have some metabolic component and that is believed to be related to her sepsis and hypoperfusion. Chest x-ray is basically the same continues to show bilateral infiltrates consistent with ARDS. Airway mechanics were reviewed, her peak airway pressure is in the low 40s, and her plateau pressures are in the range of 33-36. Patient remains sedated and paralyzed. I'm hoping I could get her off the Nimbex today, but considering patient is still requiring high PEEP, may not be able to tolerate coming off Nimbex easily. Patient remains on broad-spectrum antibiotics as per infectious disease on the case. All meds were reviewed, chest x-ray was reviewed as noted above. And labs were all reviewed and as noted above. Reevaluated today on 08/17/2018, remains in the intensive care unit, mechanically ventilated, remains on multiple drips, her ventilator settings are assist control rate of 36 tidal volume of 350 FiO2 of 55% PEEP is down to 10. ABG this morning showed a pO2 of 94 pCO2 of 51 pH of 7.18 which is basically a combined respiratory and metabolic acidosis. Hence I recommended starting the patient on a bicarb drip. I have also recommended cutting down the PEEP down to 10 and the FiO2 is 55% today. Chest x-ray continues to show bilateral interstitial infiltrates consistent with ARDS. Patient remains on propofol at 50 mcg/kg/m, fentanyl at 0.67 mcg/kg/m, he is also on insulin drip at 1.5 units per hour. Patient is off pressors, and off Nimbex. Continues to have relatively high peak airway pressures and plateau pressures. Consistent with ARDS/stiff lungs. Renal functioning has been worsening patient did receive albumin and Lasix last night, and did not improve much. Hence I have recommended today that we go back on a higher dose of fluids, she will be given 50 ML per hour, Lasix will be discontinued, and the sodium bicarb drip at 50 MLS per hour was also started. Patient is also receiving TPN. CBC showed WBC count of 12 hemoglobin of 7.4, at least secondary to count seems to be improving. BUN today is up to 70 creatinine is 1.34. Patient is quite edematous, she is third spacing, but I believe she is intravascularly depleted. Albumin and Lasix did not help much. Hence we'll try fluids only today. No albumin and no diuretics. Remains on multiple antibiotics including vancomycin , Zosyn and eraxix remains on TPN Reevaluated today on 08/18/2018, remains in the ICU, remains mechanically ventilated, remains on multiple drips but she is not requiring any pressors at this point. Tried to go down on the propofol, and as soon as the dose was cut down, patient became extremely agitated, tachycardic, restless, and her respirator rate was up in the 40s. Hence had to be placed back on propofol and she is also on fentanyl, but off Nimbex. Her fentanyl is 50 mcg/h, and her propofol is 45 mcg/kg/m. Her ventilator settings are tidal volume of 350 assist control rate of 36,FiO2 is 55% PEEP is 12.CBC showed WBC count of 12.5 hemoglobin is 9.2, required blood transfusion yesterday for a hemoglobin of 6.9ABG today showed a pO2 of 67 pCO2 of 52 pH of 7.20, remains on bicarb drip. Renal functioning is a bit worse today, her baseline creatinine is 0.57, it was 1.34 yesterday, and it is 1.56 today. Nephrology was consulted on this patient , and the recommendation was to continue bicarb drip, and given 1 dose of Lasix 80 mg IV push 1 today. Patient remains on TPN, remains on antibiotics as per infectious disease, her lung mechanics were reviewed again, lungs are becoming stiff and again, plateau pressures is in the low 30s. Patient was reevaluated today on 08/19/2018, remains in the ICU, on mechanical ventilation, same ventilator settings as noted above. Remains on propofol, Nimbex, and fentanyl, last night she required to be placed on norepinephrine because of low blood pressure. Patient required Nimbex because she was getting extremely tachypneic, tachycardic, and was not synchronous with mechanical ventilation. Her chest x-ray continues to show diffuse ARDS picture. Her urine output is becoming worse. Patient remains on bicarb drip which I increased to 100 mL per hour. All her labs were reviewed. And chest x-ray reviewed. ABG reviewed.she is clearly developing leukocytosis with WBC count of 20.7. Her pO2 is 78 pCO2 of 60 pH of 7.16.renal profile is worsening. BUN is 89 creatinine is 1.81. Overall the patient seems to be getting worse, and at this point I strongly believe that this is a medical futility situation. Her CODE STATUS has been changed yesterday to DO NOT RESUSCITATE CODE STATUS, at this point I think the should be approached again regarding possibly considering comfort care measures because at this point again this is a medical futility situation. Objective - Vital Signs Vital signs: Vital Signs Temp 98.4 F 08/19/18 12:00 Pulse 116 H 08/19/18 12:30 Resp 13 08/19/18 12:30 BP 128/52 08/17/18 23:59 Pulse Ox 91 L 08/19/18 12:30 Intake & Output 08/18/18 08/19/18 08/19/18 18:59 06:59 18:59 Intake Total 4249.933 2466.201 1199.219 Output Total 290 262 245 Balance 0967.984 6849.201 954.219 Weight 84.1 kg Intake: IV 1375 1276 718 Anidulafungin 100 mg In 100 100 Sodium Chloride 0.9% 100 ml @ 84 mls/hr IVPB DAILY [facility] Rx#:[id number] Piperacillin-Tazobactam 3 200 100 75 .375 gm In Sodium Chloride 0.9% 100 ml @ 25 mls/hr IVPB Q8HR [facility] Rx# :[id number] Pressure bag 30 36 18 Sodium Chloride 0.45% 1, 550 600 300 000 ml @ 50 mls/hr IV . Q20H [facility] Rx#:[id number] TPN 495 540 225 Intake, IV Titration 916.378 1288.201 481.219 Amount Cisatracurium 200 mg In 1.176 Sodium Chloride 0.9% 180 ml @ 1 MCG/KG/MIN 5.04 mls/hr IV .Q24H [facility] Rx#: [id number] Dextrose 5% in Water 1, 450 000 ml @ 100 mls/hr IV . [id number] JESSICA with Sodium Bicarb (1 Meq/ml) 150 ml Rx#:[id number] Mvi, Adult No.4 with Vit 1037 K 10 ml Trace (Conc-1Ml/ Dose) 1 ml Calcium Gluconate 1 gm Magnesium Sulfate gm 0.5 gm Sodium Acetate 30 meq In Amino Acid 5%-D15w 1,000 ml @ 45 mls/hr IV .Q23H3M [facility] Rx#:[id number] Norepinephrine 32 mg In 0.182 20.472 31.219 Sodium Chloride 0.9% 218 ml @ 0.05 MCG/KG/MIN 1.82 mls/hr IV .Q24H [facility] Rx#: [id number] Propofol 1,000 mg In 100 Empty Bag 1 bag @ Titrate IV .Q0M [facility] Rx#: [id number] fentaNYL (PF) 1,000 mcg 19.553 In Sodium Chloride 0.9% 80 ml @ 0.62 MCG/KG/HR 5. 02 mls/hr IV .[id number] [facility] Rx#:[id number] Output: Drainage 30 40 125 Left Upper Abdomen 10 75 Right Abdomen 50 Right Lower Abdomen 30 30 Urine 260 222 120 Other: Voiding Method Indwelling Catheter Indwelling Catheter Indwelling Catheter ABP, PAP, CO, CI - Last Documented Arterial Blood Pressure 118/52 - Exam Physical Exam: Revealed a 58-year-old female on mechanical ventilation, sedated and paralyzed, on Nimbex fentanyl and propofol. Head: Atraumatic, normocephalic. HEENT:[Neck is supple.] [No neck masses.] [No thyromegaly.] [No JVD.] PERRLA, EOMI, no icterus. Dry mucous membranes were noted. orogastric tube was noted .tracheostomy is intact Chest: crackles at the bases, no rhonchi and no wheezes. Symmetrical chest expansion. Subcutaneous emphysema is palpable. Cardiac Exam: [tachycardic,Normal S1 and S2, no S3 gallop, no murmur.] Abdomen: [Abdominal wound, remains open, colostomy and ileostomy tubes were noted. Dark material noted in both legs. Abdominal wall is swollen and edematous. Bowel sounds are hypoactive. Necrosis of the subcutaneous tissue along the wound borders noted bilaterally. Neurological Exam: Cannot be assessed sedated , sedated and paralyzed Psychiatric: Cannot be assessed. Skin/extremities. unchanged, there is Evidence of poor perfusion to the tips of the fingers in both hands however more pronounced in the left thumb area with ischemic changes and necrosis. Tips of the other fingers in the right hand are also noted to show some dark discoloration at the tips mostly. significant edema noted in both lower extremities. And both are seeping serous drainage. - Labs CBC & Chem 7: 08/19/18 04:20 08/19/18 04:20 Labs: Abnormal Lab Results - Last 24 Hours (Table) 08/17/18 08/18/18 08/18/18 Range/Units 21:24 14:35 18:27 WBC (3.8-10.6) k/uL RBC (3.80-5.40) m/uL Hgb (11.4-16.0) gm/dL Hct (34.0-46.0) % RDW (11.5-15.5) % Plt Count (150-450) k/uL Neutrophils # (Manual) (1.3-7.7) k/uL Lymphocytes # (Manual) (1.0-4.8) k/uL Metamyelocytes # (Man) (0) k/uL Nucleated RBCs (0-0) /100 WBC ABG pH (7.35-7.45) ABG pCO2 (35-45) mmHg ABG pO2 (83-108) mmHg Sodium (137-145) mmol/L Carbon Dioxide (22-30) mmol/L BUN (7-17) mg/dL Creatinine (0.52-1.04) mg/dL Glucose (74-99) mg/dL POC Glucose (mg/dL) 146 H 192 H (75-99) mg/dL Calcium (8.4-10.2) mg/dL Phosphorus (2.5-4.5) mg/dL Alkaline Phosphatase (38-126) U/L Total Protein (6.3-8.2) g/dL Albumin (3.5-5.0) g/dL Crossmatch See Detail 08/18/18 08/18/18 08/19/18 Range/Units 23:38 23:42 04:20 WBC 20.7 H (3.8-10.6) k/uL RBC 2.89 L (3.80-5.40) m/uL Hgb 8.9 L (11.4-16.0) gm/dL Hct 27.7 L (34.0-46.0) % RDW 19.1 H (11.5-15.5) % Plt Count 64 L (150-450) k/uL Neutrophils # (Manual) 20.00 H (1.3-7.7) k/uL Lymphocytes # (Manual) 0.62 L (1.0-4.8) k/uL Metamyelocytes # (Man) 0.21 H (0) k/uL Nucleated RBCs 2 H (0-0) /100 WBC ABG pH (7.35-7.45) ABG pCO2 (35-45) mmHg ABG pO2 (83-108) mmHg Sodium (137-145) mmol/L Carbon Dioxide (22-30) mmol/L BUN (7-17) mg/dL Creatinine (0.52-1.04) mg/dL Glucose (74-99) mg/dL POC Glucose (mg/dL) 70 L 177 H (75-99) mg/dL Calcium (8.4-10.2) mg/dL Phosphorus (2.5-4.5) mg/dL Alkaline Phosphatase (38-126) U/L Total Protein (6.3-8.2) g/dL Albumin (3.5-5.0) g/dL Crossmatch 08/19/18 08/19/18 08/19/18 Range/Units 04:20 05:43 08:36 WBC (3.8-10.6) k/uL RBC (3.80-5.40) m/uL Hgb (11.4-16.0) gm/dL Hct (34.0-46.0) % RDW (11.5-15.5) % Plt Count (150-450) k/uL Neutrophils # (Manual) (1.3-7.7) k/uL Lymphocytes # (Manual) (1.0-4.8) k/uL Metamyelocytes # (Man) (0) k/uL Nucleated RBCs (0-0) /100 WBC ABG pH 7.16 L* (7.35-7.45) ABG pCO2 60 H (35-45) mmHg ABG pO2 78 L (83-108) mmHg Sodium 133 L (137-145) mmol/L Carbon Dioxide 21 L (22-30) mmol/L BUN 89 H (7-17) mg/dL Creatinine 1.81 H (0.52-1.04) mg/dL Glucose 137 H (74-99) mg/dL POC Glucose (mg/dL) 139 H (75-99) mg/dL Calcium 8.0 L (8.4-10.2) mg/dL Phosphorus 5.0 H (2.5-4.5) mg/dL Alkaline Phosphatase 142 H (38-126) U/L Total Protein 4.9 L (6.3-8.2) g/dL Albumin 2.0 L (3.5-5.0) g/dL Crossmatch 08/19/18 Range/Units 12:10 WBC (3.8-10.6) k/uL RBC (3.80-5.40) m/uL Hgb (11.4-16.0) gm/dL Hct (34.0-46.0) % RDW (11.5-15.5) % Plt Count (150-450) k/uL Neutrophils # (Manual) (1.3-7.7) k/uL Lymphocytes # (Manual) (1.0-4.8) k/uL Metamyelocytes # (Man) (0) k/uL Nucleated RBCs (0-0) /100 WBC ABG pH (7.35-7.45) ABG pCO2 (35-45) mmHg ABG pO2 (83-108) mmHg Sodium (137-145) mmol/L Carbon Dioxide (22-30) mmol/L BUN (7-17) mg/dL Creatinine (0.52-1.04) mg/dL Glucose (74-99) mg/dL POC Glucose (mg/dL) 101 H (75-99) mg/dL Calcium (8.4-10.2) mg/dL Phosphorus (2.5-4.5) mg/dL Alkaline Phosphatase (38-126) U/L Total Protein (6.3-8.2) g/dL Albumin (3.5-5.0) g/dL Crossmatch Microbiology - Last 24 Hours (Table) 08/18/ 13:10 Gram Stain - Preliminary Ascites Fluid Body Fluid Culture - Preliminary 08/13/18 14:50 Blood Culture - Preliminary Blood No Growth after 120 hours Assessment and Plan Assessment: Impression: 1Acute hypoxic respiratory failure secondary to ARDS secondary to abdominal sepsis.fecal peritonitis 2 complicated diverticular abscess with bowel perforation, status post exploratory laparotomy and sigmoid colectomy and ostomy appendectomy postoperative day #20 3 status post repeat exploratory laparotomy and small bowel resection and abscess drainage and diverting ileostomy postoperative day #11 4 acute septic shock secondary to intra-abdominal abscess 5 excessive volume overload and hypoalbuminemia contributing to significant swelling and third spacing with significant bipedal edema. Patient is intravascularly depleted. Did not respond to albumin and Lasix infusions. 6 open wound/abdominal wound with necrosis of the wound surfaces status post debridement. 7 extensive subcutaneous emphysema probably from pneumomediastinum and status post horizontal incision made in the skin and fascia to allow drainage of subcutaneous air. 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 May require surgical resection. 11 status post tracheostomy, postoperative day #5 12 acute kidney injury secondary to acute tubular necrosis. And sepsis. And the patient is also intravascularly depleted contributing to her acute kidney injury. 13 multi system organ failure, at this point I believe the medical care is futile, and I believe the should be approached again patient is doing poorly and has been doing poorly every day, I believe it is time to really seriously consider comfort care measures. Mortality is basically 100%. Recommendation: Continue present supportive care measures, continue ventilatory support, nutritional support,/TPN. Continue GI and DVT prophylaxis. PEEP is back up to 12, FiO2 remains at 65% patient is not ready for any weaning trials. clearly the patient has multisystem organ failure, and chances of recovery is basically 0%. Condition is futile, and will approach the again regarding comfort care measures, and it is best to let the patient go in peace comfort and dignity. Critical care time is 35 minutes Time with Patient: Greater than 30
[2018-08-19] MEDS ORDERED: ALBUMIN HUMAN 25% 50 ML in EMPTY BAG 1 BAG IVPB ONE (13:19)
[2018-08-19] MEDS ORDERED: FUROSEMIDE 10 MG/ML 10 ML VIAL IV ONE (14:00)
--- NOTE | 2018-08-19 14:34 | PN ---
PROGRESS NOTE Patient is seen for followup for acute kidney injury secondary to ATN and vancomycin toxicity. Renal function is worse with serum creatinine up to 1.8 from 1.5 yesterday. Urine output remains borderline as well at about 15-20 mL/hour. The patient remains on Levophed at about 8 mics. She is maintained on sedation, TPN, and a bicarb drip at 100 mL an hour. Heart rate 118 per minute. On examination, heart rate is 118 per minute, blood pressure 118/52. Examination of the heart S1, S2. Examination of lungs bilateral breath sounds are heard. Abdomen is soft, distended, nontender. Wound dressed. Incision is dressed. Examination lower extremities shows severe edema about 4+ bilaterally. [employer] exam cannot be performed. LAB: Show sodium 133, potassium 4.4, BUN 89, serum creatinine 1.8, hemoglobin at 8.9 g/dL. ASSESSMENT: 1. Acute kidney injury, acute tubular necrosis from sepsis as well as vancomycin toxicity, currently oliguric with borderline urine output given the significant the interstitial edema and weeping along with worsening renal failure. The patient will likely require renal replacement therapy if renal function continues to worsen. At this time, her prognosis is poor. I am not sure if this will be the appropriate next step. 2. Sepsis from bowel perforation and fecal peritonitis. 3. Vent dependent respiratory failure. 4. Acute anemia, most likely from blood loss, status post packed RBCs transfusion. No active bleeding noted at this time. 5. Metabolic acidosis. Maintained on bicarb. PLAN: DC to half-normal saline at 50 mL an hour. Continue with TPN. Continue with bicarb drip. Add Lasix 100 mg q.8 hours. If renal function continues to deteriorate, we will need to consider renal replacement therapy. However, I am not sure if this is an appropriate next step given her overall general condition and poor prognosis. MMODL / IJN: [id number] /
--- NOTE | 2018-08-19 17:24 | P.PN ---
Subjective Progress Note Date: 08/19/18 Principal diagnosis: abdominal pain Patient is a 58-year-old female with no significant past medical history o who presented to the emergency department at the recommendations of her PCP for dehydration, nausea, and vomiting. In the emergency department she underwent an extensive evaluation. Computed tomography scan of the abdomen showed diverticular abscess with partial bowel obstruction she was admitted for further management. Initial laboratory analysis showed a sodium of 132, carbon dioxide 21, and a negative urinalysis. She was started on IV fluids, antibiotics and was admitted. General surgery was consulted. Patient initially wanted conservative management did not want surgery. Interventional radiology was consulted and she underwent abscess ranges placement of percutaneous drain on 07/28/18. She was found to have an elevated PTT and hematology was consulted. They felt that this was likely due to poor nutritional intake and ordered additional vitamin K. Her PT INR normalized with additional vitamin K. She was seen by ID who discontinue meropenem and started her on Zosyn. She had initially been progressing well. Overnight on she developed increasing pain and nausea. She started requiring IV narcotics for treatment of her pain. She then became tachycardic. Morning blood work on 07/30 showed a depressed white blood cell count at 2.5, and carbon dioxide of 12. Stat CT with IV contrast as well as a stat lactic acid and a [address] abdomen and pelvis showed free air. Case discussed with Dr. Jacobson and patient was taken urgently to the operating room for ex-lap due to perforated viscus. During the procedure, the patient was noted to have fecal peritonitis and underwent a sigmoid colectomy with end colostomy. She was transferred to the ICU post-operatively and was started on IV pressors. The patient was extubated on 07/31/18. However, she continued to require Levophed. ID recommended the patient to be switched to Unasyn and Flagyl. A random cortisol level was drawn and was 22, for which patient was started on hydrocortisone for suspected adrenal insufficiency. On 08/02 the patient developed respiratory distress and was re-intubated. She was also noted to have L thumb discoloration with history of art line placement on that wrist. Vascular surgery was consulted and did not recommend urgent surgical intervention. Her pressors were able to taken off momentarily on 08/06 but required to be restarted on 2/4. She had a dusky appearance to the wound edges and was taken back to the OR on 08/09 and underwent small bowel resection with abdominal wound debridement. She underwent an echocardiogram which showed a hyperdynamic left ventricle with ejection fraction 70%. She was weaned off pressors by 08/11/18. Patient developed subcutaneous emphysema on the morning of 08/11. Chest x-ray showed no evidence of pneumothorax. Determine and anticipated complication of high PEEP ventilation required for her ARDS. Her hgb dropped on the morning of 08/11 and she was transfused 2 units of packed red blood cells. She was maintained coverage and broad-spectrum antibiotics with Vanco, Zosyn, and Eraxis. She had her trach placed on 08/14 along with debridement of her abdominal wall wound. She had placement of a right brachial art line on 08/[address] Carlisle. Her Solu-Cortef was decreased and 08/15 her norepinephrine did have to be restarted but was stopped by 08/16. On 08/16 surgery felt that there will be no additional surgical procedures performed. She did have an elevated vancomycin trough on 08/15 and then developed some elevated creatinines. Nephrology was consulted who recommended resuming Lasix. Her hemoglobin dropped overnight on 08/18 and she was given 1 additional unit of packed red blood cells. SHe became hypothermic and hypotensive on 08/18 and levophed was restarted. She was more acidotic despite the bicarb gtt and was placed on paralytics again the morning of 08/20. Her WBC count started to increase again. Patient seen and examined at bedside. Sedated on vent. required levophed to be restarted overnight, on nibex due to acidosis, increased bicarb gtt, on bear hugger, minimal urine output. Objective - Vital Signs Vital signs: Vital Signs Temp 98.8 F 08/19/18 07:30 Pulse 122 H 08/19/18 07:40 Resp 36 H 08/19/18 07:30 BP 128/52 08/17/18 23:59 Pulse Ox 91 L 08/19/18 07:30 Intake & Output 08/18/18 08/19/18 08/19/18 18:59 06:59 18:59 Intake Total 1860.273 7781.201 444 Output Total 290 262 160 Balance 3025.426 1743.201 284 Weight 84.1 kg Intake: IV 1375 1276 294 Anidulafungin 100 mg In 100 Sodium Chloride 0.9% 100 ml @ 84 mls/hr IVPB DAILY [facility] Rx#:[id number] Piperacillin-Tazobactam 3 200 100 .375 gm In Sodium Chloride 0.9% 100 ml @ 25 mls/hr IVPB Q8HR [facility] Rx# :[id number] Pressure bag 30 36 9 Sodium Chloride 0.45% 1, 550 600 150 000 ml @ 50 mls/hr IV . Q20H [facility] Rx#:[id number] TPN 495 540 135 Intake, IV Titration 0.182 1078.201 150 Amount Cisatracurium 200 mg In 1.176 Sodium Chloride 0.9% 180 ml @ 1 MCG/KG/MIN 5.04 mls/hr IV .Q24H [facility] Rx#: [id number] Dextrose 5% in Water 1, 150 000 ml @ 75 mls/hr IV . [id number] [facility] with Sodium Bicarb (1 Meq/ml) 150 ml Rx#:[id number] Mvi, Adult No.4 with Vit 1037 K 10 ml Trace (Conc-1Ml/ Dose) 1 ml Calcium Gluconate 1 gm Magnesium Sulfate gm 0.5 gm Sodium Acetate 30 meq In Amino Acid 5%-D15w 1,000 ml @ 45 mls/hr IV .Q23H3M [facility] Rx#:[id number] Norepinephrine 32 mg In 0.182 20.472 Sodium Chloride 0.9% 218 ml @ 0.05 MCG/KG/MIN 1.82 mls/hr IV .Q24H [facility] Rx#: [id number] fentaNYL (PF) 1,000 mcg 19.553 In Sodium Chloride 0.9% 80 ml @ 0.62 MCG/KG/HR 5. 02 mls/hr IV .[id number] [facility] Rx#:[id number] Output: Drainage 30 40 125 Left Upper Abdomen 10 75 Right Abdomen 50 Right Lower Abdomen 30 30 Urine 260 222 35 Other: Voiding Method Indwelling Catheter Indwelling Catheter ABP, PAP, CO, CI - Last Documented Arterial Blood Pressure 112/51 - Exam General: ill appearing, sedated on vent, mod distress, appears older than stated age Derm: cool, dry, left thumb dusky no skin sloughing, dusky appearance all finger tips right hand. Head: atraumatic, normocephalic, symmetric Eyes: Pupil fixed and pinpoint, scleral edema, no lid lesion anicteric sclera Mouth: dry lips with cracking and blood, mucus membranes moist Cardiovascular: S1S2 tachy, no murmur, positive posterior tibial pulse bilateral , anarsarca with sloughing of blister roof Lungs: course bs bilateral, no accessory muscle use, on vent with trach Abdominal: soft, nontender to palpation through sedation, no guarding, no appreciable organomegaly, dressing with moderate soak through, + ostomy X 2. Ext: no gross muscle atrophy, diffuse anasarca with blisters, no contractures Neuro: no withdrawal to pain but currently on sedation. Psych:sedated on vent - Labs CBC & Chem 7: 08/19/18 04:20 08/19/18 04:20 Labs: Abnormal Lab Results - Last 24 Hours (Table) 08/17/18 08/18/18 08/18/18 Range/Units 21:24 12:31 14:35 WBC (3.8-10.6) k/uL RBC (3.80-5.40) m/uL Hgb (11.4-16.0) gm/dL Hct (34.0-46.0) % RDW (11.5-15.5) % Plt Count (150-450) k/uL Neutrophils # (Manual) (1.3-7.7) k/uL Lymphocytes # (Manual) (1.0-4.8) k/uL Metamyelocytes # (Man) (0) k/uL Nucleated RBCs (0-0) /100 WBC ABG pH (7.35-7.45) ABG pCO2 (35-45) mmHg ABG pO2 (83-108) mmHg Sodium (137-145) mmol/L Carbon Dioxide (22-30) mmol/L BUN (7-17) mg/dL Creatinine (0.52-1.04) mg/dL Glucose (74-99) mg/dL POC Glucose (mg/dL) 140 H 146 H (75-99) mg/dL Calcium (8.4-10.2) mg/dL Phosphorus (2.5-4.5) mg/dL Alkaline Phosphatase (38-126) U/L Total Protein (6.3-8.2) g/dL Albumin (3.5-5.0) g/dL Crossmatch See Detail 08/18/18 08/18/18 08/18/18 Range/Units 18:27 23:38 23:42 WBC (3.8-10.6) k/uL RBC (3.80-5.40) m/uL Hgb (11.4-16.0) gm/dL Hct (34.0-46.0) % RDW (11.5-15.5) % Plt Count (150-450) k/uL Neutrophils # (Manual) (1.3-7.7) k/uL Lymphocytes # (Manual) (1.0-4.8) k/uL Metamyelocytes # (Man) (0) k/uL Nucleated RBCs (0-0) /100 WBC ABG pH (7.35-7.45) ABG pCO2 (35-45) mmHg ABG pO2 (83-108) mmHg Sodium (137-145) mmol/L Carbon Dioxide (22-30) mmol/L BUN (7-17) mg/dL Creatinine (0.52-1.04) mg/dL Glucose (74-99) mg/dL POC Glucose (mg/dL) 192 H 70 L 177 H (75-99) mg/dL Calcium (8.4-10.2) mg/dL Phosphorus (2.5-4.5) mg/dL Alkaline Phosphatase (38-126) U/L Total Protein (6.3-8.2) g/dL Albumin (3.5-5.0) g/dL Crossmatch 08/19/18 08/19/18 08/19/18 Range/Units 04:20 04:20 05:43 WBC 20.7 H (3.8-10.6) k/uL RBC 2.89 L (3.80-5.40) m/uL Hgb 8.9 L (11.4-16.0) gm/dL Hct 27.7 L (34.0-46.0) % RDW 19.1 H (11.5-15.5) % Plt Count 64 L (150-450) k/uL Neutrophils # (Manual) 20.00 H (1.3-7.7) k/uL Lymphocytes # (Manual) 0.62 L (1.0-4.8) k/uL Metamyelocytes # (Man) 0.21 H (0) k/uL Nucleated RBCs 2 H (0-0) /100 WBC ABG pH (7.35-7.45) ABG pCO2 (35-45) mmHg ABG pO2 (83-108) mmHg Sodium 133 L (137-145) mmol/L Carbon Dioxide 21 L (22-30) mmol/L BUN 89 H (7-17) mg/dL Creatinine 1.81 H (0.52-1.04) mg/dL Glucose 137 H (74-99) mg/dL POC Glucose (mg/dL) 139 H (75-99) mg/dL Calcium 8.0 L (8.4-10.2) mg/dL Phosphorus 5.0 H (2.5-4.5) mg/dL Alkaline Phosphatase 142 H (38-126) U/L Total Protein 4.9 L (6.3-8.2) g/dL Albumin 2.0 L (3.5-5.0) g/dL Crossmatch 08/19/18 Range/Units 08:36 WBC (3.8-10.6) k/uL RBC (3.80-5.40) m/uL Hgb (11.4-16.0) gm/dL Hct (34.0-46.0) % RDW (11.5-15.5) % Plt Count (150-450) k/uL Neutrophils # (Manual) (1.3-7.7) k/uL Lymphocytes # (Manual) (1.0-4.8) k/uL Metamyelocytes # (Man) (0) k/uL Nucleated RBCs (0-0) /100 WBC ABG pH 7.16 L* (7.35-7.45) ABG pCO2 60 H (35-45) mmHg ABG pO2 78 L (83-108) mmHg Sodium (137-145) mmol/L Carbon Dioxide (22-30) mmol/L BUN (7-17) mg/dL Creatinine (0.52-1.04) mg/dL Glucose (74-99) mg/dL POC Glucose (mg/dL) (75-99) mg/dL Calcium (8.4-10.2) mg/dL Phosphorus (2.5-4.5) mg/dL Alkaline Phosphatase (38-126) U/L Total Protein (6.3-8.2) g/dL Albumin (3.5-5.0) g/dL Crossmatch Microbiology - Last 24 Hours (Table) 08/18/18 13:10 Gram Stain - Preliminary Ascites Fluid Body Fluid Culture - Preliminary 08/13/18 14:50 Blood Culture - Preliminary Blood No Growth after 120 hours Assessment and Plan Assessment: Diverticulitis with abscess and bowel perforation with septic shock s/p sigmoid colectomy, small bowel resection X 2 and appendectomy and debridement of wound necrosis - Surgery recs no additional procedures - ID recs: polymicrobial infection Eraxis, zosyn, off vanco after elevated level Leukocytosis - will defer to ID if warrants reculture or addition of MRSA coverage, ? daptp use with hx of high vanc trough already on pseudomonal coverage and antifungal. Non anion gap metabolic and respiratory acidosis, improving -Bicarb gtt increased on 08/19 - repeat ABG and BMP in AM ANDRY, oliguric - had elevated vanc level - nephro recs: lasix increased, may need HD but is poor candidate due to overall status - avoid additional nephrotoxic agents - repeat BMP in AM ARDS/ MODS (Multiorgan failure) - treatment of infections - critical care recs Pneumomediastinum - likely due to high levels of peep - improving - continue to follow CXR - pulmonary recs Anemia - s/p 1 unit pRBC 08/17 and 3 units in total - follow CBC - transfuse for HgB <6 Relative adrenal insufficiency - stress dose steroids, decrease 08/15, will hold of decreasing again due to vasopressor use Hyperglycemia due to steroids and TPN - prediabetes - A1C 6.1, diet modification on discharge - follow BS and SSI Acute hypoxic respiratory failure due ARDS - vent management per ICU team Post-op ileus - on TPN - NGT to suction - general surgery recs Severe Protein calorie malnutrition - on TPN Left thumb ischemia - vascular surgery recs appreciated, conservative management at this time. Thromboctypenia, reactive to sepsis - follow CBC - HIT AB negative Hyponatremia, hypokalemia, hypophosphatemia, and hypomagnesemia resolved Coagulopathy, resolved Anion Gap metabolic acidosis, resolved lactic acidosis, improved Transaminitis, resolved Poor overall prognosis. I do not anticipate that she will survive this hospital stay. DVT prophylaxis: SCDS due to thrombocytopenia Anticipated discharge: undetermined Place: undetermined A total of 35 minutes, complex care of this patient.
--- NOTE | 2018-08-19 18:04 | P.PN ---
Subjective Progress Note Date: 08/19/18 CHIEF COMPLAINT: Perforated diverticulitis. HISTORY OF PRESENT ILLNESS: The patient is a 58-year-old female status post colectomy with colostomy creation, small bowel resection, appendectomy, 07/30/18 , postop day 20, followed by tracheostomy and abdominal wound debridement 2018, now postop day 5. Per discussion with nursing team, patient is DO NOT RESUSCITATE. She's pending Comfort Care measures. She has moderate volume fluid shifts including still on pressors. She is fully sedated with full ventilatory support. PHYSICAL EXAM: VITAL SIGNS: Reviewed GENERAL: Well-developed on full ventilatory support HEENT: No sclera icterus. Extraocular movements grossly intact. Head is atraumatic, normocephalic. NECK: Tracheostomy intact. No cell or surround the neck. CHEST: Full ventilatory support with mechanical ventilation. CARDIOVASCULAR: Palpable 2+ radial pulses. Tachycardic ABDOMEN: Dressing intact. No peritonitis. MUSCULOSKELETAL: No clubbing. Has edema lower extremities. NEUROLOGIC: Deferred due to sedation PSYCH: Deferred due to sedation SKIN: Poorly perfused. Moderate weeping of the skin and multiholed the skin. LABS: Reviewed ASSESSMENT: 1. s/p colectomy 2. Sepsis PLAN: 1. Patient DO NOT RESUSCITATE. 2. No additional surgical intervention. 3. Comfort care measures advised Objective - Vital Signs Vital signs: Vital Signs Temp 98.4 F 08/19/18 12:00 Pulse 116 H 08/19/18 15:55 Resp 13 08/19/18 12:30 BP 128/52 08/17/18 23:59 Pulse Ox 91 L 08/19/18 12:30 Intake & Output 08/18/18 08/19/18 08/19/18 18:59 06:59 18:59 Intake Total 3830.629 8796.201 2076.164 Output Total 290 262 360 Balance 2858.287 5301.201 1716.164 Weight 84.1 kg Intake: IV 1375 1276 933 0.9 NS 60 Anidulafungin 100 mg In 100 100 Sodium Chloride 0.9% 100 ml @ 84 mls/hr IVPB DAILY [facility] Rx#:[id number] Piperacillin-Tazobactam 3 200 100 75 .375 gm In Sodium Chloride 0.9% 100 ml @ 25 mls/hr IVPB Q8HR [facility] Rx# :[id number] Pressure bag 30 36 33 Sodium Chloride 0.45% 1, 550 600 350 000 ml @ 50 mls/hr IV . Q20H [facility] Rx#:[id number] TPN 495 540 315 Intake, IV Titration 317.614 7769.201 1143.164 Amount Albumin Human 25% 50 ml 50 In Empty Bag 1 bag @ 50 mls/hr IVPB ONCE ONE Rx#: [id number] Cisatracurium 200 mg In 1.176 Sodium Chloride 0.9% 180 ml @ 1 MCG/KG/MIN 5.04 mls/hr IV .Q24H [facility] Rx#: [id number] Dextrose 5% in Water 1, 950 000 ml @ 100 mls/hr IV . [id number] [facility] with Sodium Bicarb (1 Meq/ml) 150 ml Rx#:[id number] Mvi, Adult No.4 with Vit 1037 K 10 ml Trace (Conc-1Ml/ Dose) 1 ml Calcium Gluconate 1 gm Magnesium Sulfate gm 0.5 gm Sodium Acetate 30 meq In Amino Acid 5%-D15w 1,000 ml @ 45 mls/hr IV .Q23H3M [facility] Rx#:[id number] Norepinephrine 32 mg In 0.182 20.472 43.164 Sodium Chloride 0.9% 218 ml @ 0.05 MCG/KG/MIN 1.82 mls/hr IV .Q24H [facility] Rx#: [id number] Propofol 1,000 mg In 100 100 Empty Bag 1 bag @ Titrate IV .Q0M [facility] Rx#: [id number] fentaNYL (PF) 1,000 mcg 19.553 In Sodium Chloride 0.9% 80 ml @ 0.62 MCG/KG/HR 5. 02 mls/hr IV .[id number] [facility] Rx#:[id number] Output: Drainage 30 40 125 Left Upper Abdomen 10 75 Right Abdomen 50 Right Lower Abdomen 30 30 Urine 260 222 235 Other: Voiding Method Indwelling Catheter Indwelling Catheter Indwelling Catheter ABP, PAP, CO, CI - Last Documented Arterial Blood Pressure 118/52 - Labs CBC & Chem 7: 08/19/18 04:20 08/19/18 04:20 Labs: Abnormal Lab Results - Last 24 Hours (Table) 08/17/18 08/18/18 08/18/18 Range/Units 21:24 18:27 23:38 WBC (3.8-10.6) k/uL RBC (3.80-5.40) m/uL Hgb (11.4-16.0) gm/dL Hct (34.0-46.0) % RDW (11.5-15.5) % Plt Count (150-450) k/uL Neutrophils # (Manual) (1.3-7.7) k/uL Lymphocytes # (Manual) (1.0-4.8) k/uL Metamyelocytes # (Man) (0) k/uL Nucleated RBCs (0-0) /100 WBC ABG pH (7.35-7.45) ABG pCO2 (35-45) mmHg ABG pO2 (83-108) mmHg Sodium (137-145) mmol/L Carbon Dioxide (22-30) mmol/L BUN (7-17) mg/dL Creatinine (0.52-1.04) mg/dL Glucose (74-99) mg/dL POC Glucose (mg/dL) 192 H 70 L (75-99) mg/dL Calcium (8.4-10.2) mg/dL Phosphorus (2.5-4.5) mg/dL Alkaline Phosphatase (38-126) U/L Total Protein (6.3-8.2) g/dL Albumin (3.5-5.0) g/dL Crossmatch See Detail 08/18/18 08/19/18 08/19/18 Range/Units 23:42 04:20 04:20 WBC 20.7 H (3.8-10.6) k/uL RBC 2.89 L (3.80-5.40) m/uL Hgb 8.9 L (11.4-16.0) gm/dL Hct 27.7 L (34.0-46.0) % RDW 19.1 H (11.5-15.5) % Plt Count 64 L (150-450) k/uL Neutrophils # (Manual) 20.00 H (1.3-7.7) k/uL Lymphocytes # (Manual) 0.62 L (1.0-4.8) k/uL Metamyelocytes # (Man) 0.21 H (0) k/uL Nucleated RBCs 2 H (0-0) /100 WBC ABG pH (7.35-7.45) ABG pCO2 (35-45) mmHg ABG pO2 (83-108) mmHg Sodium 133 L (137-145) mmol/L Carbon Dioxide 21 L (22-30) mmol/L BUN 89 H (7-17) mg/dL Creatinine 1.81 H (0.52-1.04) mg/dL Glucose 137 H (74-99) mg/dL POC Glucose (mg/dL) 177 H (75-99) mg/dL Calcium 8.0 L (8.4-10.2) mg/dL Phosphorus 5.0 H (2.5-4.5) mg/dL Alkaline Phosphatase 142 H (38-126) U/L Total Protein 4.9 L (6.3-8.2) g/dL Albumin 2.0 L (3.5-5.0) g/dL Crossmatch 08/19/18 08/19/18 08/19/18 Range/Units 05:43 08:36 12:10 WBC (3.8-10.6) k/uL RBC (3.80-5.40) m/uL Hgb (11.4-16.0) gm/dL Hct (34.0-46.0) % RDW (11.5-15.5) % Plt Count (150-450) k/uL Neutrophils # (Manual) (1.3-7.7) k/uL Lymphocytes # (Manual) (1.0-4.8) k/uL Metamyelocytes # (Man) (0) k/uL Nucleated RBCs (0-0) /100 WBC ABG pH 7.16 L* (7.35-7.45) ABG pCO2 60 H (35-45) mmHg ABG pO2 78 L (83-108) mmHg Sodium (137-145) mmol/L Carbon Dioxide (22-30) mmol/L BUN (7-17) mg/dL Creatinine (0.52-1.04) mg/dL Glucose (74-99) mg/dL POC Glucose (mg/dL) 139 H 101 H (75-99) mg/dL Calcium (8.4-10.2) mg/dL Phosphorus (2.5-4.5) mg/dL Alkaline Phosphatase (38-126) U/L Total Protein (6.3-8.2) g/dL Albumin (3.5-5.0) g/dL Crossmatch Microbiology - Last 24 Hours (Table) 08/13/18 14:50 Blood Culture - Final Blood No Growth after 144 hours 08/18/18 13:10 Gram Stain - Preliminary Ascites Fluid Body Fluid Culture - Preliminary Assessment and Plan (1) S/P small bowel resection Current Visit: Yes Status: Acute Code(s): Z90.49 - ACQUIRED ABSENCE OF OTHER SPECIFIED PARTS OF DIGESTIVE TRACT SNOMED Code(s): 721232190173364 (2) Colostomy present Current Visit: Yes Status: Acute Code(s): Z93.3 - COLOSTOMY STATUS SNOMED Code(s): 166025434 (3) ARDS (adult respiratory distress syndrome) Current Visit: Yes Status: Acute Code(s): J80 - ACUTE RESPIRATORY DISTRESS SYNDROME SNOMED Code(s): 36033042 (4) Acute respiratory failure with hypoxia Current Visit: Yes Status: Acute Code(s): J96.01 - ACUTE RESPIRATORY FAILURE WITH HYPOXIA SNOMED Code(s): 83584609 (5) Colonic diverticular abscess Current Visit: Yes Status: Acute Code(s): K57.20 - DVTRCLI OF LG INT W PERFORATION AND ABSCESS W/O BLEEDING SNOMED Code(s): 975988147 (6) Sepsis Current Visit: Yes Status: Acute Code(s): A41.9 - SEPSIS, UNSPECIFIED ORGANISM SNOMED Code(s): 65571632
[2018-08-19 18:06] LABS: Glucose,Whole Blood 137 mg/dL (75-99)
[2018-08-19] MEDS: FUROSEMIDE 10 MG/ML 10 ML VIAL IV SCH ×2 (21:01→23:40)
[2018-08-19 21:36] LABS: Creatine Kinase 26 U/L (30-135); Lipase 143 U/L (23-300)
--- NOTE | 2018-08-19 23:10 | PN ---
PROGRESS NOTE DATE OF SERVICE: 08/19/2018. REASON FOR FOLLOWUP: Abdominal sepsis. INTERVAL HISTORY: The patient is currently afebrile. The patient did require vasopressor support. Patient is currently . The patient sedated on the vent. PHYSICAL EXAM: On examination, blood pressure 110/40, pulse 109, temperature 97.3, she is 99% on room air. GENERAL: Elderly female lying in bed in no 1istress. RESPIRATORY SYSTEM: Unlabored breathing. Clear to auscultation anteriorly. HEART: S1, S2. Regular rate and rhythm. ABDOMEN: Colostomy bag. EXTREMITIES: No edema of the feet. LABS: Hemoglobin 8.1, white count 20.7, BUN of 9, creatinine is 1.1. DIAGNOSTIC IMPRESSION AND PLAN: Patient with abdominal sepsis in this patient who had extensive abdominal surgery x2. Patient currently covered with Zosyn and vancomycin and with . The patient was switched to NO CODE with possible comfort care as per nursing staff. Continue supportive care. MMODL / IJN: [id number] /
[2018-08-20] MEDS: HYDROCORTISONE SUCCINATE 100 MG/2 ML VIAL IV SCH ×4 (00:27→23:17)
[2018-08-20] MEDS: METOCLOPRAMIDE 5 MG/ML 2 ML VIAL IVP SCH ×5 (00:29→23:17)
[2018-08-20 00:34] LABS: Glucose,Whole Blood 165 mg/dL (75-99)
[2018-08-20] MEDS: INSULIN ASPART (NovoLOG) 100 UNIT/ML VIAL SQ SCH ×4 (00:37→17:41)
[2018-08-20] MEDS: PIPERACILLIN-TAZOBACTAM 3.375 GM in SODIUM CHLORIDE 0.9% 100 ML IVPB SCH ×3 (00:37→23:18)
[2018-08-20] MEDS: DEXTROSE 5% IN WATER 1,000 ML with SODIUM BICARB (1 MEQ/ML) 150 ML IV SCH ×2 (02:33→12:58)
[2018-08-20] MEDS: IPRATROPIUM-ALBUTEROL 3 ML NEB INHALATION PRN (03:31)
[2018-08-20] MEDS: CISATRACURIUM 200 MG in SODIUM CHLORIDE 0.9% 180 ML IV SCH ×2 (03:46→19:16)
[2018-08-20] MEDS: [UNRECOGNIZED DRUG - REMARK] IV SCH ×6 (03:47)
[2018-08-20 04:19] LABS: Anisocytosis Slight; HCT 24.7 % (34.0-46.0); Hypochromasia Moderate; MCH 30.8 pg (25.0-35.0); MCHC 32.6 g/dL (31.0-37.0); MCV 94.7 fL (80.0-100.0); Macrocytosis Slight; Mean Platelet Volume 11.6; Poikilocytosis Moderate; RBC 2.61 m/uL (3.80-5.40); WBC 12.4 k/uL (3.8-10.6)
[2018-08-20 04:27] LABS: Platelet Count 36 k/uL (150-450)
[2018-08-20 04:32] LABS: Albumin 1.9 g/dL (3.5-5.0); Calcium 7.7 mg/dL (8.4-10.2); Magnesium 1.8 mg/dL (1.6-2.3); Phosphorus 5.3 mg/dL (2.5-4.5); Potassium 3.9 mmol/L (3.5-5.1); Total Bilirubin 1.4 mg/dL (0.2-1.3); Total Protein 4.8 g/dL (6.3-8.2)
[2018-08-20] MEDS: PROPOFOL 1,000 MG in EMPTY BAG 1 BAG IV SCH ×3 (04:35→18:15)
[2018-08-20 05:00] LABS: Band Neutrophils % 16 %; Eosinophils # (M) 0.12 k/uL (0-0.7); Lymphocytes # (M) 0.62 k/uL (1.0-4.8); Monocytes # (M) 0.12 k/uL (0-1.0); Myelocytes # (M) 0.74 k/uL (0); Myelocytes % 6 %; Neutrophils % (M) 72 %; Nucleated Red Blood Cells 0 /100 WBC (0-0); Total Cells Counted 200
[2018-08-20 05:01] LABS: Basophilic Stippling Present; Polychromasia Present
[2018-08-20 05:37] LABS: ABG Base Excess -5.9 mmol/L; ABG HCO3 22 mmol/L (21-25); ABG Oxygen Saturation 89.6 % (94-97); ABG PCO2 56 mmHg (35-45); ABG PO2 63 mmHg (83-108); ABG TCO2 24 mmol/L (19-24)
[2018-08-20] MEDS: IPRATROPIUM-ALBUTEROL 3 ML NEB INHALATION SCH ×4 (06:03→19:17)
[2018-08-20 06:13] LABS: Glucose,Whole Blood 147 mg/dL (75-99)
--- NOTE | 2018-08-20 08:02 | XR ---
EXAMINATION TYPE: XR chest 1V portable DATE OF EXAM: 08/20/2018 Comparison: 08/19/2018 Clinical History: 58-year-old female Intubated, ARDS, Findings: Tracheostomy cannula. NG tube is in place. Left subclavian CVC tip in the right atrium. Heart upper l imits of normal in size. Continued diffuse perihilar, interstitial, and multifocal patchy and conflue nt airspace opacities, greatest within the mid and lower lungs. Impression: Continued diffuse interstitial and airspace disease. Possible slight worsening aeration in the lower lungs.
[2018-08-20] MEDS: FUROSEMIDE 10 MG/ML 10 ML VIAL IV SCH ×3 (08:26→23:17)
[2018-08-20] MEDS: PANTOPRAZOLE 40 MG/10 ML VIAL IVP SCH (08:26)
[2018-08-20] MEDS: CHLORHEXIDINE GLUCONATE 15 ML CUP MUCOUS MEM SCH ×2 (08:39→20:51)
[2018-08-20] MEDS: ANIDULAFUNGIN 100 MG in SODIUM CHLORIDE 0.9% 100 ML IVPB SCH (08:53)
[2018-08-20] MEDS ORDERED: [UNRECOGNIZED DRUG - REMARK] IV SCH ×8 (09:00)
--- NOTE | 2018-08-20 09:26 | P.PN ---
Subjective Progress Note Date: 08/20/18 Principal diagnosis: abdominal pain Patient is a 58-year-old female with no significant past medical history o who presented to the emergency department at the recommendations of her PCP for dehydration, nausea, and vomiting. In the emergency department she underwent an extensive evaluation. Computed tomography scan of the abdomen showed diverticular abscess with partial bowel obstruction she was admitted for further management. Initial laboratory analysis showed a sodium of 132, carbon dioxide 21, and a negative urinalysis. She was started on IV fluids, antibiotics and was admitted. General surgery was consulted. Patient initially wanted conservative management did not want surgery. Interventional radiology was consulted and she underwent abscess ranges placement of percutaneous drain on 07/28/18. She was found to have an elevated PTT and hematology was consulted. They felt that this was likely due to poor nutritional intake and ordered additional vitamin K. Her PT INR normalized with additional vitamin K. She was seen by ID who discontinue meropenem and started her on Zosyn. She had initially been progressing well. Overnight on she developed increasing pain and nausea. She started requiring IV narcotics for treatment of her pain. She then became tachycardic. Morning blood work on 07/30 showed a depressed white blood cell count at 2.5, and carbon dioxide of 12. Stat CT with IV contrast as well as a stat lactic acid and a [address] abdomen and pelvis showed free air. Case discussed with Dr. Jacobson and patient was taken urgently to the operating room for ex-lap due to perforated viscus. During the procedure, the patient was noted to have fecal peritonitis and underwent a sigmoid colectomy with end colostomy. She was transferred to the ICU post-operatively and was started on IV pressors. The patient was extubated on 07/31/18. However, she continued to require Levophed. ID recommended the patient to be switched to Unasyn and Flagyl. A random cortisol level was drawn and was 22, for which patient was started on hydrocortisone for suspected adrenal insufficiency. On 08/02 the patient developed respiratory distress and was re-intubated. She was also noted to have L thumb discoloration with history of art line placement on that wrist. Vascular surgery was consulted and did not recommend urgent surgical intervention. Her pressors were able to taken off momentarily on 08/06 but required to be restarted on 2/4. She had a dusky appearance to the wound edges and was taken back to the OR on 08/09 and underwent small bowel resection with abdominal wound debridement. She underwent an echocardiogram which showed a hyperdynamic left ventricle with ejection fraction 70%. She was weaned off pressors by 08/11/18. Patient developed subcutaneous emphysema on the morning of 08/11. Chest x-ray showed no evidence of pneumothorax. Determine and anticipated complication of high PEEP ventilation required for her ARDS. Her hgb dropped on the morning of 08/11 and she was transfused 2 units of packed red blood cells. She was maintained coverage and broad-spectrum antibiotics with Vanco, Zosyn, and Eraxis. She had her trach placed on 08/14 along with debridement of her abdominal wall wound. She had placement of a right brachial art line on 08/[address] Carlisle. Her Solu-Cortef was decreased and 08/15 her norepinephrine did have to be restarted but was stopped by 08/16. On 08/16 surgery felt that there will be no additional surgical procedures performed. She did have an elevated vancomycin trough on 08/15 and then developed some elevated creatinines. Nephrology was consulted who recommended resuming Lasix. Her hemoglobin dropped overnight on 08/18 and she was given 1 additional unit of packed red blood cells. SHe became hypothermic and hypotensive on 08/18 and levophed was restarted. She was more acidotic despite the bicarb gtt and was placed on paralytics again the morning of 08/20. Her WBC count started to increase again. Again discussed prognosis at [facility] with on 08/19 and explained that she is not a dialysis candidate at this time due to hemodynamic instability. Patient seen and examined at bedside. No new events overnight. still on paralytics, levo, and with marginal urine output. Objective - Vital Signs Vital signs: Vital Signs Temp 97.6 F 08/20/18 04:00 Pulse 104 H 08/20/18 07:00 Resp 36 H 08/20/18 07:00 BP 128/52 08/17/18 23:59 Pulse Ox 88 L 08/20/18 07:00 Intake & Output 08/19/18 08/20/18 08/20/18 18:59 06:59 18:59 Intake Total 2224.670 2796.897 351.278 Output Total 395 1105 45 Balance 3159.066 6289.897 306.278 Intake: IV 956 321 36 0.9 NS 80 185 30 Anidulafungin 100 mg In 100 Sodium Chloride 0.9% 100 ml @ 84 mls/hr IVPB DAILY [facility] Rx#:[id number] Piperacillin-Tazobactam 3 75 100 .375 gm In Sodium Chloride 0.9% 100 ml @ 25 mls/hr IVPB Q8HR [facility] Rx# :[id number] Pressure bag 36 36 6 Sodium Chloride 0.45% 1, 350 000 ml @ 50 mls/hr IV . Q20H [facility] Rx#:[id number] TPN 315 Intake, IV Titration 8073.526 2291.897 315.278 Amount Albumin Human 25% 50 ml 50 In Empty Bag 1 bag @ 50 mls/hr IVPB ONCE ONE Rx#: [id number] Cisatracurium 200 mg In 198.824 Sodium Chloride 0.9% 180 ml @ 1 MCG/KG/MIN 5.04 mls/hr IV .Q24H [facility] Rx#: [id number] Dextrose 5% in Water 1, 1050 1200 200 000 ml @ 100 mls/hr IV . [id number] JESSICA with Sodium Bicarb (1 Meq/ml) 150 ml Rx#:[id number] Mvi, Adult No.4 with Vit 935.25 K 10 ml Trace (Conc-1Ml/ Dose) 1 ml Calcium Gluconate 1 gm Magnesium Sulfate gm 0.5 gm Sodium Acetate 30 meq In Amino Acid 5%-D15w 1,000 ml @ 45 mls/hr IV .Q23H3M [facility] Rx#:[id number] Norepinephrine 32 mg In 56.487 41.823 15.278 Sodium Chloride 0.9% 218 ml @ 0.05 MCG/KG/MIN 1.82 mls/hr IV .Q24H [facility] Rx#: [id number] Propofol 1,000 mg In 100 100 100 Empty Bag 1 bag @ Titrate IV .Q0M [facility] Rx#: [id number] fentaNYL (PF) 1,000 mcg 12.183 In Sodium Chloride 0.9% 80 ml @ 0.62 MCG/KG/HR 5. 02 mls/hr IV .[id number] [facility] Rx#:[id number] Output: Drainage 125 325 Left Upper Abdomen 75 225 Right Abdomen 50 Right Lower Abdomen 100 Urine 270 450 45 Stool 330 Other: Voiding Method Indwelling Catheter Indwelling Catheter Indwelling Catheter ABP, PAP, CO, CI - Last Documented Arterial Blood Pressure 97/44 - Exam General: ill appearing, sedated on vent, no distress, appears older than stated age Derm: cool, dry, left thumb dusky no skin sloughing, dusky appearance all finger tips right hand. Head: atraumatic, normocephalic, symmetric Eyes: Pupil fixed and pinpoint, scleral edema, no lid lesion anicteric sclera Mouth: dry lips with cracking and blood, mucus membranes dry Cardiovascular: S1S2 tachy, no murmur, positive posterior tibial pulse bilateral , anarsarca with sloughing of blister roof Lungs: course bs bilateral, no accessory muscle use, on vent with trach Abdominal: soft, nontender to palpation through sedation, no guarding, no appreciable organomegaly, dressing in place with YESSENIA drain, + ostomy X 2. Ext: no gross muscle atrophy, diffuse anasarca with blisters, no contractures Neuro: no withdrawal to pain but currently on sedation. Psych:sedated on vent - Labs CBC & Chem 7: 08/20/18 04:05 08/20/18 04:05 Labs: Abnormal Lab Results - Last 24 Hours (Table) 08/19/18 08/19/18 08/19/18 Range/Units 04:20 12:10 18:02 WBC (3.8-10.6) k/uL RBC (3.80-5.40) m/uL Hgb (11.4-16.0) gm/dL Hct (34.0-46.0) % RDW (11.5-15.5) % Plt Count (150-450) k/uL Neutrophils # (Manual) (1.3-7.7) k/uL Lymphocytes # (Manual) (1.0-4.8) k/uL Myelocytes # (Manual) (0) k/uL ABG pH (7.35-7.45) ABG pCO2 (35-45) mmHg ABG pO2 (83-108) mmHg ABG O2 Saturation (94-97) % Sodium (137-145) mmol/L Chloride (98-107) mmol/L BUN (7-17) mg/dL Creatinine (0.52-1.04) mg/dL Glucose (74-99) mg/dL POC Glucose (mg/dL) 101 H 137 H (75-99) mg/dL Calcium (8.4-10.2) mg/dL Phosphorus (2.5-4.5) mg/dL Total Bilirubin (0.2-1.3) mg/dL Alkaline Phosphatase (38-126) U/L Creatine Kinase 26 L (30-135) U/L Total Protein (6.3-8.2) g/dL Albumin (3.5-5.0) g/dL 08/20/18 08/20/18 08/20/18 Range/Units 00:31 04:05 04:05 WBC 12.4 H (3.8-10.6) k/uL RBC 2.61 L (3.80-5.40) m/uL Hgb 8.0 L (11.4-16.0) gm/dL Hct 24.7 L (34.0-46.0) % RDW 19.0 H (11.5-15.5) % Plt Count 36 L (150-450) k/uL Neutrophils # (Manual) 10.90 H (1.3-7.7) k/uL Lymphocytes # (Manual) 0.62 L (1.0-4.8) k/uL Myelocytes # (Manual) 0.74 H (0) k/uL ABG pH (7.35-7.45) ABG pCO2 (35-45) mmHg ABG pO2 (83-108) mmHg ABG O2 Saturation (94-97) % Sodium 130 L (137-145) mmol/L Chloride 94 L (98-107) mmol/L BUN 91 H (7-17) mg/dL Creatinine 2.30 H (0.52-1.04) mg/dL Glucose 141 H (74-99) mg/dL POC Glucose (mg/dL) 165 H (75-99) mg/dL Calcium 7.7 L (8.4-10.2) mg/dL Phosphorus 5.3 H (2.5-4.5) mg/dL Total Bilirubin 1.4 H (0.2-1.3) mg/dL Alkaline Phosphatase 140 H (38-126) U/L Creatine Kinase (30-135) U/L Total Protein 4.8 L (6.3-8.2) g/dL Albumin 1.9 L (3.5-5.0) g/dL 08/20/18 08/20/18 Range/Units 05:32 06:11 WBC (3.8-10.6) k/uL RBC (3.80-5.40) m/uL Hgb (11.4-16.0) gm/dL Hct (34.0-46.0) % RDW (11.5-15.5) % Plt Count (150-450) k/uL Neutrophils # (Manual) (1.3-7.7) k/uL Lymphocytes # (Manual) (1.0-4.8) k/uL Myelocytes # (Manual) (0) k/uL ABG pH 7.20 L (7.35-7.45) ABG pCO2 56 H (35-45) mmHg ABG pO2 63 L (83-108) mmHg ABG O2 Saturation 89.6 L (94-97) % Sodium (137-145) mmol/L Chloride (98-107) mmol/L BUN (7-17) mg/dL Creatinine (0.52-1.04) mg/dL Glucose (74-99) mg/dL POC Glucose (mg/dL) 147 H (75-99) mg/dL Calcium (8.4-10.2) mg/dL Phosphorus (2.5-4.5) mg/dL Total Bilirubin (0.2-1.3) mg/dL Alkaline Phosphatase (38-126) U/L Creatine Kinase (30-135) U/L Total Protein (6.3-8.2) g/dL Albumin (3.5-5.0) g/dL Microbiology - Last 24 Hours (Table) 08/18/18 13:10 Gram Stain - Preliminary Ascites Fluid Body Fluid Culture - Preliminary Gram Neg Bacilli 08/13/18 14:50 Blood Culture - Final Blood No Growth after 144 hours Assessment and Plan Assessment: Diverticulitis with abscess and bowel perforation with septic shock s/p sigmoid colectomy, small bowel resection X 2 and appendectomy and debridement of wound necrosis - Surgery recs no additional procedures - ID recs: polymicrobial infection Eraxis, zosyn, off vanco after elevated level Non anion gap metabolic and respiratory acidosis, improving -Bicarb gtt increased on 08/19 - treatment of ANDRY as able. - follow acidosis ANDRY, oliguric - had elevated vanc level - nephro recs: lasix - D/W Dr. Kraft and we both agree not a HD candidate due to hemodynamic instability - avoid additional nephrotoxic agents - repeat BMP in AM ARDS/ MODS (Multiorgan failure) - treatment of infections - critical care recs Pneumomediastinum - likely due to high levels of peep - improving - continue to follow CXR - pulmonary recs Anemia - s/p 1 unit pRBC 08/17 and 3 units in total - follow CBC - transfuse for HgB <6 Relative adrenal insufficiency - stress dose steroids, decrease 08/15, will hold of decreasing again due to vasopressor use Hyperglycemia due to steroids and TPN - prediabetes - A1C 6.1, diet modification on discharge - follow BS and SSI Acute hypoxic respiratory failure due ARDS - vent management per ICU team Post-op ileus - on TPN - NGT to suction - general surgery recs Severe Protein calorie malnutrition - on TPN Left thumb ischemia - vascular surgery recs appreciated, conservative management at this time. Thromboctypenia, reactive to sepsis - follow CBC - HIT AB negative Hyponatremia, hypokalemia, hypophosphatemia, and hypomagnesemia resolved Coagulopathy, resolved Anion Gap metabolic acidosis, resolved lactic acidosis, improved Transaminitis, resolved Poor overall prognosis. I do not anticipate that she will survive this hospital stay. Have discussed with 08/17,, and will again today DVT prophylaxis: SCDS due to thrombocytopenia Anticipated discharge: undetermined Place: undetermined A total of 35 minutes, complex care of this patient.
--- NOTE | 2018-08-20 10:08 | PN ---
PROGRESS NOTE Patient is seen for followup for acute kidney injury. Patient's renal function has deteriorated. Serum creatinine is up to 2.3. She remains oliguric with urine output at about 15-20 mL an hour. The patient is also significantly fluid overloaded with blisters noted in the lower extremities. Ideally, she would need to be dialyzed at this point. However, given her overall general condition and hypotension, I am not sure if she will be able to tolerate renal replacement therapy. EXAMINATION: Today blood pressure is 97/44, heart rate 104 per minute. She is afebrile. Examination shows bilateral breath sounds are heard. ABDOMEN: Soft. Abdominal wound is dressed. Examination of lower extremity shows 4+ edema with blisters noted. [employer] HEL[employer] exam cannot be performed. The patient has an NG tube in with dark colored NG aspirate. LAB: Show sodium 130, potassium 3.9, BUN 91, serum creatinine 2.3, hemoglobin of 8.0 g/dL. ASSESSMENT: 1. Acute kidney injury, ATN from sepsis as well as vancomycin toxicity. Ideally, patient needs to be dialyzed given her significant volume overload and worsening renal function. However, I do not believe the patient is a good candidate for renal replacement therapy. We may be able to try a few treatments. However, on the long run, I do not think this will benefit her much. 2. Severe sepsis secondary to perforated ileum secondary to perforated bowel and fecal peritonitis. 3. Acute hypoxic respiratory failure, currently on mechanical ventilation. 4. Gastrointestinal bleed. PLAN: Overall prognosis is very poor. The patient is not an ideal candidate for long-term dialysis. She may not tolerate renal replacement therapy well given her overall general condition. I believe this has been discussed with the family. MMODL / IJN: [id number] /
[2018-08-20 11:50] LABS: Glucose,Whole Blood 105 mg/dL (75-99)
--- NOTE | 2018-08-20 12:01 | P.PN ---
Subjective Progress Note Date: 08/20/18 Principal diagnosis: Acute hypoxic respiratory failure secondary to ARDS, and abdominal sepsis. Patient was reevaluated today on 08/14/2018, remains on mechanical ventilation, she remains on relatively high PEEP of 12, and high FiO2 of 65% with marginal O2 saturation. O2 saturation was 93% at best. ABG could not be done this morning, the right radial arterial line was nonfunctional and it was removed. And she had issues related to her left radial arterial line which was discontinued because of ischemic changes of the left thumb. Patient remains on assist control rate of 30 tidal volume of 350 PEEP of 12 and FiO2 of 65%. Remains on fentanyl roughly about 50 mcg/m, insulin drip at 4.5 units per hour, and propofol drip at 40 mcg/kg/m. Considering the patient is still requiring high FiO2 and high PEEP, and she seems to be a bit tachypneic, I went ahead and recommended that the patient gets to be placed on Nimbex. She is scheduled to undergo tracheostomy today. Chest x-ray showed significant bilateral interstitial changes consistent with ARDS, significant subcutaneous emphysema is noted, no evidence of pneumothorax, and no evidence of pneumomediastinum. Fortunately, the patient is not requiring any pressors at this point. Urine output seems to be adequate, the pressure is adequate. She does have a net positive fluid balance. There is however significant amount of seepage noted from the skin surfaces specially skin of lower extremities. Colostomy is nonfunctional ileostomy is functioning. Patient remains on TPN. Necrotic left stump remains about the same. Patient was reevaluated today on 08/15/2018, she underwent tracheostomy yesterday. Postoperative ABG was poor, hence she was placed back on 100% FiO2 overnight, PEEP remains at 12, her gases this morning showed significant improvement, hence I was able to cut down the FiO2 to 55%, and I increased the PEEP to 15. Follow-up ABG this morning showed a pO2 of 98, pCO2 of 74 pH of 7.13. CBC is showing leukocytosis again with WBC count of 23.5, hemoglobin is 10. Platelets are 118,000. Basic metabolic profile is normal, renal profile showed a BUN of 48 creatinine of 0.75. Patient is now on multiple drips including propofol, 40 mcg/kg/m, fentanyl at 25 mcg/h, norepinephrine at 3.5 mcg /m. She is also on Nimbex drip. Titrated as per protocol. Her ventilator settings this morning were adjusted, she is presently on assist control rate of 56. Tidal volume of 350, FiO2 is 55%, and PEEP is 15. Chest x-ray continues to show diffuse bilateral interstitial infiltrates and airspace disease. No evidence of pneumothorax, and no evidence of pneumomediastinum. Recent blood cultures from 08/13/2018 remain negative. And urine cultures have been negative since 08/09/2018. Patient remains on DuoNeb updrafts,anidulafungin, Solu-Cortef which I will cut down to 50 mg every 8 hours, Zosyn, and vancomycin. Patient was reevaluated in the ICU again today on 08/16/2018. Patient remains on mechanical ventilation via tracheostomy. Remains on the same ventilator settings which are FiO2 of 50%, tidal volume of 350 assist-control rate is 36 PEEP remains high at 15. ABG this morning was marginal pO2 was noted to be 64 pCO2 is 56 pH of 7.19. Patient remains on multiple drips including propofol at 50 mcg/kg/m, Nimbex 1 mcg/kg/m which I plan to hold today fentanyl at 0.67 mcg/ kg/h and she is on norepinephrine at 0.08 mcg/kg/m. Urine output is marginal at best, patient is quite swollen and edematous, but I believe she is intravascularly depleted. Did not respond to albumin infusions followed by Lasix yesterday, hence I will give the patient fluids today, and hopefully will improve her urine output and bit more. May even consider a sodium bicarb drip, although the acidosis is mostly respiratory in nature, does have some metabolic component and that is believed to be related to her sepsis and hypoperfusion. Chest x-ray is basically the same continues to show bilateral infiltrates consistent with ARDS. Airway mechanics were reviewed, her peak airway pressure is in the low 40s, and her plateau pressures are in the range of 33-36. Patient remains sedated and paralyzed. I'm hoping I could get her off the Nimbex today, but considering patient is still requiring high PEEP, may not be able to tolerate coming off Nimbex easily. Patient remains on broad-spectrum antibiotics as per infectious disease on the case. All meds were reviewed, chest x-ray was reviewed as noted above. And labs were all reviewed and as noted above. Reevaluated today on 08/17/2018, remains in the intensive care unit, mechanically ventilated, remains on multiple drips, her ventilator settings are assist control rate of 36 tidal volume of 350 FiO2 of 55% PEEP is down to 10. ABG this morning showed a pO2 of 94 pCO2 of 51 pH of 7.18 which is basically a combined respiratory and metabolic acidosis. Hence I recommended starting the patient on a bicarb drip. I have also recommended cutting down the PEEP down to 10 and the FiO2 is 55% today. Chest x-ray continues to show bilateral interstitial infiltrates consistent with ARDS. Patient remains on propofol at 50 mcg/kg/m, fentanyl at 0.67 mcg/kg/m, he is also on insulin drip at 1.5 units per hour. Patient is off pressors, and off Nimbex. Continues to have relatively high peak airway pressures and plateau pressures. Consistent with ARDS/stiff lungs. Renal functioning has been worsening patient did receive albumin and Lasix last night, and did not improve much. Hence I have recommended today that we go back on a higher dose of fluids, she will be given 50 ML per hour, Lasix will be discontinued, and the sodium bicarb drip at 50 MLS per hour was also started. Patient is also receiving TPN. CBC showed WBC count of 12 hemoglobin of 7.4, at least secondary to count seems to be improving. BUN today is up to 70 creatinine is 1.34. Patient is quite edematous, she is third spacing, but I believe she is intravascularly depleted. Albumin and Lasix did not help much. Hence we'll try fluids only today. No albumin and no diuretics. Remains on multiple antibiotics including vancomycin , Zosyn and eraxix remains on TPN Reevaluated today on 08/18/2018, remains in the ICU, remains mechanically ventilated, remains on multiple drips but she is not requiring any pressors at this point. Tried to go down on the propofol, and as soon as the dose was cut down, patient became extremely agitated, tachycardic, restless, and her respirator rate was up in the 40s. Hence had to be placed back on propofol and she is also on fentanyl, but off Nimbex. Her fentanyl is 50 mcg/h, and her propofol is 45 mcg/kg/m. Her ventilator settings are tidal volume of 350 assist control rate of 36,FiO2 is 55% PEEP is 12.CBC showed WBC count of 12.5 hemoglobin is 9.2, required blood transfusion yesterday for a hemoglobin of 6.9ABG today showed a pO2 of 67 pCO2 of 52 pH of 7.20, remains on bicarb drip. Renal functioning is a bit worse today, her baseline creatinine is 0.57, it was 1.34 yesterday, and it is 1.56 today. Nephrology was consulted on this patient , and the recommendation was to continue bicarb drip, and given 1 dose of Lasix 80 mg IV push 1 today. Patient remains on TPN, remains on antibiotics as per infectious disease, her lung mechanics were reviewed again, lungs are becoming stiff and again, plateau pressures is in the low 30s. Patient was reevaluated today on 08/19/2018, remains in the ICU, on mechanical ventilation, same ventilator settings as noted above. Remains on propofol, Nimbex, and fentanyl, last night she required to be placed on norepinephrine because of low blood pressure. Patient required Nimbex because she was getting extremely tachypneic, tachycardic, and was not synchronous with mechanical ventilation. Her chest x-ray continues to show diffuse ARDS picture. Her urine output is becoming worse. Patient remains on bicarb drip which I increased to 100 mL per hour. All her labs were reviewed. And chest x-ray reviewed. ABG reviewed.she is clearly developing leukocytosis with WBC count of 20.7. Her pO2 is 78 pCO2 of 60 pH of 7.16.renal profile is worsening. BUN is 89 creatinine is 1.81. Overall the patient seems to be getting worse, and at this point I strongly believe that this is a medical futility situation. Her CODE STATUS has been changed yesterday to DO NOT RESUSCITATE CODE STATUS, at this point I think the should be approached again regarding possibly considering comfort care measures because at this point again this is a medical futility situation. Patient was reevaluated today on 08/20/2018, seems to be deteriorating further. She is now back on a higher dose of norepinephrine, she is now on high FiO2, and PEEP remains at 12, she is still on sodium bicarb drip, and his urine output is marginal at best. Obviously her pulmonary status is worsening, her hemodynamic status is worsening, renal status is worsening, and in the overall picture seems extremely hopeless. Clearly the patient is not in any shape that she couldn't tolerate hemodialysis, and at this point I believe the should be approached again regarding possibly considering comfort care measures , or even consider medical ethics committee to evaluate the patient and discussed with the again.patient is now on 100% FiO2, PEEP of 12, assist control rate of 36, tidal volume of 350.patient is now on propofol, fentanyl, norepinephrine, and Nimbex. Considering increasing her PEEP again to get her FiO2 down, but no matter what I do, I feel the condition is hopeless.ABG today showed a pO2 of 63 pCO2 of 56 pH of 7.20.WBC count is 12.4 hemoglobin is 8. Her bands are 16%, I am almost certain that the patient has abdominal sepsis again, however she is not a candidate or she is not stable enough for any further abdominal surgery intervention.being followed by surgery , and they felt basically the same.renal profile seems to be worsening BUN is 91 creatinine 2.30. Objective - Vital Signs Vital signs: Vital Signs Temp 97.6 F 08/20/18 04:00 Pulse 93 08/20/18 11:41 Resp 36 H 08/20/18 07:00 BP 128/52 08/17/18 23:59 Pulse Ox 88 L 08/20/18 07:00 Intake & Output 08/19/18 08/20/18 08/20/18 18:59 06:59 18:59 Intake Total 2224.670 2796.897 980.995 Output Total 395 1105 133 Balance 7054.866 2499.897 847.995 Intake: IV 956 321 190 0.9 NS 80 185 75 Anidulafungin 100 mg In 100 100 Sodium Chloride 0.9% 100 ml @ 84 mls/hr IVPB DAILY JESSICA Rx#:[id number] Piperacillin-Tazobactam 3 75 100 .375 gm In Sodium Chloride 0.9% 100 ml @ 25 mls/hr IVPB Q8HR JESSICA Rx# :[id number] Pressure bag 36 36 15 Sodium Chloride 0.45% 1, 350 000 ml @ 50 mls/hr IV . Q20H JESSICA Rx#:[id number] TPN 315 Intake, IV Titration 3384.490 3574.897 790.995 Amount Albumin Human 25% 50 ml 50 In Empty Bag 1 bag @ 50 mls/hr IVPB ONCE ONE Rx#: [id number] Cisatracurium 200 mg In 198.824 79.207 Sodium Chloride 0.9% 180 ml @ 1 MCG/KG/MIN 5.04 mls/hr IV .Q24H [facility] Rx#: [id number] Dextrose 5% in Water 1, 1050 1200 500 000 ml @ 100 mls/hr IV . [id number] JESSICA with Sodium Bicarb (1 Meq/ml) 150 ml Rx#:[id number] Mvi, Adult No.4 with Vit 935.25 K 10 ml Trace (Conc-1Ml/ Dose) 1 ml Calcium Gluconate 1 gm Magnesium Sulfate gm 0.5 gm Sodium Acetate 30 meq In Amino Acid 5%-D15w 1,000 ml @ 45 mls/hr IV .Q23H3M [facility] Rx#:[id number] Mvi, Adult No.4 with Vit 90 K 10 ml Trace (Conc-1Ml/ Dose) 1 ml Calcium Gluconate 1 gm Magnesium Sulfate gm 0.5 gm Sodium Acetate 30 meq Sodium Chloride 2.5MEQ/ml Vial 25 meq Potassium Chloride 20 meq In Amino Acid 5%- D15w 1,000 ml @ 45 mls/hr IV .[id number] [facility] Rx#: [id number] Norepinephrine 32 mg In 56.487 41.823 21.788 Sodium Chloride 0.9% 218 ml @ 0.05 MCG/KG/MIN 1.82 mls/hr IV .Q24H [facility] Rx#: [id number] Propofol 1,000 mg In 100 100 100 Empty Bag 1 bag @ Titrate IV .Q0M [facility] Rx#: [id number] fentaNYL (PF) 1,000 mcg 12.183 In Sodium Chloride 0.9% 80 ml @ 0.62 MCG/KG/HR 5. 02 mls/hr IV .[id number] [facility] Rx#:[id number] Output: Drainage 125 325 Left Upper Abdomen 75 225 Right Abdomen 50 Right Lower Abdomen 100 Urine 270 450 133 Stool 330 Other: Voiding Method Indwelling Catheter Indwelling Catheter Indwelling Catheter ABP, PAP, CO, CI - Last Documented Arterial Blood Pressure 97/44 - Exam Physical Exam: Revealed a 58-year-old female on mechanical ventilation, sedated and paralyzed, on Nimbex fentanyl and propofol.and on norepinephrine. Head: Atraumatic, normocephalic. HEENT:[Neck is supple.] [No neck masses.] [No thyromegaly.] [No JVD.] PERRLA, EOMI, no icterus. Dry mucous membranes were noted. orogastric tube was noted .tracheostomy is intact Chest: crackles and rhonchi noted bilaterally. Symmetrical chest expansion. Cardiac Exam: [tachycardic,Normal S1 and S2, no S3 gallop, no murmur.] Abdomen: [Abdominal wound, remains open, colostomy and ileostomy tubes were noted. Dark material noted in both legs. Abdominal wall is swollen and edematous. Bowel sounds are hypoactive. Necrosis of the subcutaneous tissue along the wound borders noted bilaterally. Neurological Exam: Cannot be assessed sedated , sedated and paralyzed Psychiatric: Cannot be assessed. Skin/extremities. unchanged,significant swelling in lower extremities noted with serous drainage from the skin and developing skin vesicles. there is Evidence of poor perfusion to the tips of the fingers in both hands however more pronounced in the left thumb area with ischemic changes and necrosis. Tips of the other fingers in the right hand are also noted to show some dark discoloration at the tips mostly. significant edema noted in both lower extremities. And both are seeping serous drainage. - Labs CBC & Chem 7: 08/20/18 04:05 08/20/18 04:05 Labs: Abnormal Lab Results - Last 24 Hours (Table) 08/19/18 08/19/18 08/19/18 Range/Units 04:20 12:10 18:02 WBC (3.8-10.6) k/uL RBC (3.80-5.40) m/uL Hgb (11.4-16.0) gm/dL Hct (34.0-46.0) % RDW (11.5-15.5) % Plt Count (150-450) k/uL Neutrophils # (Manual) (1.3-7.7) k/uL Lymphocytes # (Manual) (1.0-4.8) k/uL Myelocytes # (Manual) (0) k/uL ABG pH (7.35-7.45) ABG pCO2 (35-45) mmHg ABG pO2 (83-108) mmHg ABG O2 Saturation (94-97) % Sodium (137-145) mmol/L Chloride (98-107) mmol/L BUN (7-17) mg/dL Creatinine (0.52-1.04) mg/dL Glucose (74-99) mg/dL POC Glucose (mg/dL) 101 H 137 H (75-99) mg/dL Calcium (8.4-10.2) mg/dL Phosphorus (2.5-4.5) mg/dL Total Bilirubin (0.2-1.3) mg/dL Alkaline Phosphatase (38-126) U/L Creatine Kinase 26 L (30-135) U/L Total Protein (6.3-8.2) g/dL Albumin (3.5-5.0) g/dL 08/20/18 08/20/18 08/20/18 Range/Units 00:31 04:05 04:05 WBC 12.4 H (3.8-10.6) k/uL RBC 2.61 L (3.80-5.40) m/uL Hgb 8.0 L (11.4-16.0) gm/dL Hct 24.7 L (34.0-46.0) % RDW 19.0 H (11.5-15.5) % Plt Count 36 L (150-450) k/uL Neutrophils # (Manual) 10.90 H (1.3-7.7) k/uL Lymphocytes # (Manual) 0.62 L (1.0-4.8) k/uL Myelocytes # (Manual) 0.74 H (0) k/uL ABG pH (7.35-7.45) ABG pCO2 (35-45) mmHg ABG pO2 (83-108) mmHg ABG O2 Saturation (94-97) % Sodium 130 L (137-145) mmol/L Chloride 94 L (98-107) mmol/L BUN 91 H (7-17) mg/dL Creatinine 2.30 H (0.52-1.04) mg/dL Glucose 141 H (74-99) mg/dL POC Glucose (mg/dL) 165 H (75-99) mg/dL Calcium 7.7 L (8.4-10.2) mg/dL Phosphorus 5.3 H (2.5-4.5) mg/dL Total Bilirubin 1.4 H (0.2-1.3) mg/dL Alkaline Phosphatase 140 H (38-126) U/L Creatine Kinase (30-135) U/L Total Protein 4.8 L (6.3-8.2) g/dL Albumin 1.9 L (3.5-5.0) g/dL 08/20/18 08/20/18 08/20/18 Range/Units 05:32 06:11 11:47 WBC (3.8-10.6) k/uL RBC (3.80-5.40) m/uL Hgb (11.4-16.0) gm/dL Hct (34.0-46.0) % RDW (11.5-15.5) % Plt Count (150-450) k/uL Neutrophils # (Manual) (1.3-7.7) k/uL Lymphocytes # (Manual) (1.0-4.8) k/uL Myelocytes # (Manual) (0) k/uL ABG pH 7.20 L (7.35-7.45) ABG pCO2 56 H (35-45) mmHg ABG pO2 63 L (83-108) mmHg ABG O2 Saturation 89.6 L (94-97) % Sodium (137-145) mmol/L Chloride (98-107) mmol/L BUN (7-17) mg/dL Creatinine (0.52-1.04) mg/dL Glucose (74-99) mg/dL POC Glucose (mg/dL) 147 H 105 H (75-99) mg/dL Calcium (8.4-10.2) mg/dL Phosphorus (2.5-4.5) mg/dL Total Bilirubin (0.2-1.3) mg/dL Alkaline Phosphatase (38-126) U/L Creatine Kinase (30-135) U/L Total Protein (6.3-8.2) g/dL Albumin (3.5-5.0) g/dL Microbiology - Last 24 Hours (Table) 08/18/18 13:10 Gram Stain - Preliminary Ascites Fluid Body Fluid Culture - Preliminary Gram Neg Bacilli 08/13/18 14:50 Blood Culture - Final Blood No Growth after 144 hours Assessment and Plan Assessment: Impression: 1Acute hypoxic respiratory failure secondary to ARDS secondary to abdominal sepsis.fecal peritonitis 2 complicated diverticular abscess with bowel perforation, status post exploratory laparotomy and sigmoid colectomy and ostomy appendectomy postoperative day #21 3 status post repeat exploratory laparotomy and small bowel resection and abscess drainage and diverting ileostomy postoperative day #12 4 acute septic shock secondary to intra-abdominal abscess 5 excessive volume overload and hypoalbuminemia contributing to significant swelling and third spacing with significant bipedal edema. Patient is intravascularly depleted. Did not respond to albumin and Lasix infusions. 6 open wound/abdominal wound with necrosis of the wound surfaces status post debridement. 7 extensive subcutaneous emphysema probably from pneumomediastinum and status post horizontal incision made in the skin and fascia to allow drainage of subcutaneous air. 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 May require surgical resection. 11 status post tracheostomy, postoperative day #6 12 acute kidney injury secondary to acute tubular necrosis. And sepsis. And the patient is also intravascularly depleted contributing to her acute kidney injury. 13 multi system organ failure, condition is futile, and medical mortality is 100 %. Recommendation: continue present supportive care measures, I am convinced that this is a medical futility situation, will need to be reapproach again regarding comfort care measures, patient is not stable for any surgical intervention, not stable for hemodialysis, her overall condition is extremely poor, and if the does not agree with comfort care measures, may have to consider medical ethics committee evaluation. This is clearly a futile condition. We'll continue to follow. Critical care time is 35 minutes Time with Patient: Greater than 30
[2018-08-20] MEDS: fentaNYL (PF) 1,000 MCG in SODIUM CHLORIDE 0.9% 80 ML IV SCH (13:57)
[2018-08-20] MEDS: NOREPINEPHRINE 32 MG in SODIUM CHLORIDE 0.9% 218 ML IV SCH (13:57)
[2018-08-20 17:34] LABS: Glucose,Whole Blood 157 mg/dL (75-99)
--- NOTE | 2018-08-20 22:32 | PN ---
PROGRESS NOTE DATE OF SERVICE: 08/20/2018. REASON FOR FOLLOWUP: Abdominal sepsis. INTERVAL HISTORY: The patient is currently afebrile. Patient has no , however, is requiring more and more FiO2 to maintain sats. Remains to be sedated on the vent. OG to suction. PHYSICAL EXAMINATION: Blood pressure is 150/54 with a pulse of 101, temperature 96, she is 88% on 100% FiO2. GENERAL DESCRIPTION: A middle aged female, intubated on the vent. RESPIRATORY SYSTEM: Unlabored breathing with decreased breath sounds at the bases. HEART: S1, S2. Regular rate and rhythm. ABDOMEN: Soft. Midline incision site with minimal . No redness or any foul- smelling drainage. EXTREMITIES: 3+ edema of feet. LABS: Hemoglobin is 8 with a white count of 12.4, BUN of 91, creatinine 2.0. DIAGNOSTIC IMPRESSION AND PLAN: Patient with abdominal sepsis. The patient required multiple surgeries. The patient with evidence of renal failure. Vanco will be discontinued. Daptomycin will be added. Currently on Zosyn. Overall prognosis is extremely guarded. The patient has been admitted NO CODE. was present at bedside, his questions were answered. MMODL / IJN: [id number] /
[2018-08-21 00:20] VITALS: TEMP 97.1
[2018-08-21 00:43] LABS: Glucose,Whole Blood 135 mg/dL (75-99)
[2018-08-21] MEDS: INSULIN ASPART (NovoLOG) 100 UNIT/ML VIAL SQ SCH ×2 (01:11→06:05)
[2018-08-21] MEDS: DEXTROSE 5% IN WATER 1,000 ML with SODIUM BICARB (1 MEQ/ML) 150 ML IV SCH (01:15)
[2018-08-21] MEDS: fentaNYL (PF) 1,000 MCG in SODIUM CHLORIDE 0.9% 80 ML IV SCH (04:18)
[2018-08-21 04:57] LABS: ABG Base Excess -4.7 mmol/L; ABG HCO3 24 mmol/L (21-25); ABG Oxygen Saturation 86.6 % (94-97); ABG PCO2 70 mmHg (35-45); ABG PO2 62 mmHg (83-108); ABG TCO2 26 mmol/L (19-24)
[2018-08-21 05:21] LABS: Anisocytosis Slight; HCT 26.9 % (34.0-46.0); HGB 8.5 gm/dL (11.4-16.0); Hypochromasia Moderate; MCHC 31.5 g/dL (31.0-37.0); MCV 95.2 fL (80.0-100.0); Macrocytosis Slight; Mean Platelet Volume 11.2; Platelet Count 32 k/uL (150-450); Poikilocytosis Moderate; RBC 2.83 m/uL (3.80-5.40); RDW 19.1 % (11.5-15.5)
[2018-08-21 05:41] LABS: Albumin 1.9 g/dL (3.5-5.0); Calcium 7.4 mg/dL (8.4-10.2); Magnesium 1.8 mg/dL (1.6-2.3); Phosphorus 5.8 mg/dL (2.5-4.5); Potassium 3.9 mmol/L (3.5-5.1); Total Bilirubin 1.5 mg/dL (0.2-1.3); Total Protein 4.8 g/dL (6.3-8.2)
[2018-08-21 05:58] LABS: Glucose,Whole Blood 126 mg/dL (75-99)
[2018-08-21] MEDS: METOCLOPRAMIDE 5 MG/ML 2 ML VIAL IVP SCH (06:05)
--- NOTE | 2018-08-21 06:23 | P.PN ---
Subjective Progress Note Date: 08/20/18 Principal diagnosis: Patient seen and evaluated. is at bedside. Comfort care and poor prognosis described. No additional surgical intervention advised. Objective - Vital Signs Vital signs: Vital Signs Temp 96 F L 08/20/18 20:00 Pulse 106 H 08/20/18 21:00 Resp 36 H 08/20/18 21:00 BP 128/52 08/17/18 23:59 Pulse Ox 87 L 08/20/18 21:00 Intake & Output 08/20/18 08/20/18 08/21/18 06:59 18:59 06:59 Intake Total 2796.897 2336.882 542.532 Output Total 880 338 455 Balance 9270.442 3624.882 87.532 Weight 87.815 kg Intake: IV 321 416 54 0.9 NS 185 180 45 Anidulafungin 100 mg In 100 Sodium Chloride 0.9% 100 ml @ 84 mls/hr IVPB DAILY [facility] Rx#:[id number] Piperacillin-Tazobactam 3 100 100 .375 gm In Sodium Chloride 0.9% 100 ml @ 25 mls/hr IVPB Q8HR [facility] Rx# :[id number] Pressure bag 36 36 9 Intake, IV Titration 2475.897 1920.882 488.532 Amount Cisatracurium 200 mg In 198.824 79.207 38.556 Sodium Chloride 0.9% 180 ml @ 1 MCG/KG/MIN 5.04 mls/hr IV .Q24H [facility] Rx#: [id number] Dextrose 5% in Water 1, 1200 1200 300 000 ml @ 100 mls/hr IV . [id number] [facility] with Sodium Bicarb (1 Meq/ml) 150 ml Rx#:[id number] Mvi, Adult No.4 with Vit 935.25 K 10 ml Trace (Conc-1Ml/ Dose) 1 ml Calcium Gluconate 1 gm Magnesium Sulfate gm 0.5 gm Sodium Acetate 30 meq In Amino Acid 5%-D15w 1,000 ml @ 45 mls/hr IV .Q23H3M [facility] Rx#:[id number] Mvi, Adult No.4 with Vit 405 135 K 10 ml Trace (Conc-1Ml/ Dose) 1 ml Calcium Gluconate 1 gm Magnesium Sulfate gm 0.5 gm Sodium Acetate 30 meq Sodium Chloride 2.5MEQ/ml Vial 25 meq Potassium Chloride 20 meq In Amino Acid 5%- D15w 1,000 ml @ 45 mls/hr IV .[id number] [facility] Rx#: [id number] Norepinephrine 32 mg In 41.823 23.967 14.976 Sodium Chloride 0.9% 218 ml @ 0.05 MCG/KG/MIN 1.82 mls/hr IV .Q24H [facility] Rx#: [id number] Propofol 1,000 mg In 100 200 Empty Bag 1 bag @ Titrate IV .Q0M [facility] Rx#: [id number] fentaNYL (PF) 1,000 mcg 12.708 In Sodium Chloride 0.9% 80 ml @ 0.62 MCG/KG/HR 5. 02 mls/hr IV .[id number] [facility] Rx#:[id number] Output: Gastric Drainage 400 Drainage 100 35 Right Abdomen 35 Right Lower Abdomen 100 Urine 450 303 55 Stool 330 Other: Voiding Method Indwelling Catheter Indwelling Catheter Indwelling Catheter ABP, PAP, CO, CI - Last Documented Arterial Blood Pressure 103/49 - Labs CBC & Chem 7: 08/21/18 04:50 08/21/18 04:50 Labs: Abnormal Lab Results - Last 24 Hours (Table) 08/20/18 08/20/18 08/20/18 Range/Units 00:31 04:05 04:05 WBC 12.4 H (3.8-10.6) k/uL RBC 2.61 L (3.80-5.40) m/uL Hgb 8.0 L (11.4-16.0) gm/dL Hct 24.7 L (34.0-46.0) % RDW 19.0 H (11.5-15.5) % Plt Count 36 L (150-450) k/uL Neutrophils # (Manual) 10.90 H (1.3-7.7) k/uL Lymphocytes # (Manual) 0.62 L (1.0-4.8) k/uL Myelocytes # (Manual) 0.74 H (0) k/uL ABG pH (7.35-7.45) ABG pCO2 (35-45) mmHg ABG pO2 (83-108) mmHg ABG O2 Saturation (94-97) % Sodium 130 L (137-145) mmol/L Chloride 94 L (98-107) mmol/L BUN 91 H (7-17) mg/dL Creatinine 2.30 H (0.52-1.04) mg/dL Glucose 141 H (74-99) mg/dL POC Glucose (mg/dL) 165 H (75-99) mg/dL Calcium 7.7 L (8.4-10.2) mg/dL Phosphorus 5.3 H (2.5-4.5) mg/dL Total Bilirubin 1.4 H (0.2-1.3) mg/dL Alkaline Phosphatase 140 H (38-126) U/L Total Protein 4.8 L (6.3-8.2) g/dL Albumin 1.9 L (3.5-5.0) g/dL 08/20/18 08/20/18 08/20/18 Range/Units 05:32 06:11 11:47 WBC (3.8-10.6) k/uL RBC (3.80-5.40) m/uL Hgb (11.4-16.0) gm/dL Hct (34.0-46.0) % RDW (11.5-15.5) % Plt Count (150-450) k/uL Neutrophils # (Manual) (1.3-7.7) k/uL Lymphocytes # (Manual) (1.0-4.8) k/uL Myelocytes # (Manual) (0) k/uL ABG pH 7.20 L (7.35-7.45) ABG pCO2 56 H (35-45) mmHg ABG pO2 63 L (83-108) mmHg ABG O2 Saturation 89.6 L (94-97) % Sodium (137-145) mmol/L Chloride (98-107) mmol/L BUN (7-17) mg/dL Creatinine (0.52-1.04) mg/dL Glucose (74-99) mg/dL POC Glucose (mg/dL) 147 H 105 H (75-99) mg/dL Calcium (8.4-10.2) mg/dL Phosphorus (2.5-4.5) mg/dL Total Bilirubin (0.2-1.3) mg/dL Alkaline Phosphatase (38-126) U/L Total Protein (6.3-8.2) g/dL Albumin (3.5-5.0) g/dL 08/20/18 Range/Units 17:19 WBC (3.8-10.6) k/uL RBC (3.80-5.40) m/uL Hgb (11.4-16.0) gm/dL Hct (34.0-46.0) % RDW (11.5-15.5) % Plt Count (150-450) k/uL Neutrophils # (Manual) (1.3-7.7) k/uL Lymphocytes # (Manual) (1.0-4.8) k/uL Myelocytes # (Manual) (0) k/uL ABG pH (7.35-7.45) ABG pCO2 (35-45) mmHg ABG pO2 (83-108) mmHg ABG O2 Saturation (94-97) % Sodium (137-145) mmol/L Chloride (98-107) mmol/L BUN (7-17) mg/dL Creatinine (0.52-1.04) mg/dL Glucose (74-99) mg/dL POC Glucose (mg/dL) 157 H (75-99) mg/dL Calcium (8.4-10.2) mg/dL Phosphorus (2.5-4.5) mg/dL Total Bilirubin (0.2-1.3) mg/dL Alkaline Phosphatase (38-126) U/L Total Protein (6.3-8.2) g/dL Albumin (3.5-5.0) g/dL Microbiology - Last 24 Hours (Table) 08/18/18 13:10 Gram Stain - Preliminary Ascites Fluid Body Fluid Culture - Preliminary Gram Neg Bacilli Assessment and Plan (1) S/P small bowel resection Current Visit: Yes Status: Acute Code(s): Z90.49 - ACQUIRED ABSENCE OF OTHER SPECIFIED PARTS OF DIGESTIVE TRACT SNOMED Code(s): 668349089967170 (2) Colostomy present Current Visit: Yes Status: Acute Code(s): Z93.3 - COLOSTOMY STATUS SNOMED Code(s): 417826295 (3) ARDS (adult respiratory distress syndrome) Current Visit: Yes Status: Acute Code(s): J80 - ACUTE RESPIRATORY DISTRESS SYNDROME SNOMED Code(s): 65175975 (4) Acute respiratory failure with hypoxia Current Visit: Yes Status: Acute Code(s): J96.01 - ACUTE RESPIRATORY FAILURE WITH HYPOXIA SNOMED Code(s): 69775153 (5) Colonic diverticular abscess Current Visit: Yes Status: Acute Code(s): K57.20 - DVTRCLI OF LG INT W PERFORATION AND ABSCESS W/O BLEEDING SNOMED Code(s): 788761076 (6) Sepsis Current Visit: Yes Status: Acute Code(s): A41.9 - SEPSIS, UNSPECIFIED ORGANISM SNOMED Code(s): 44287251
[2018-08-21 06:32] LABS: Total Cells Counted 200
[2018-08-21 07:13] LABS: Band Neutrophils % 20 %; Lymphocytes # (M) 0.31 k/uL (1.0-4.8); Metamyelocytes # (M) 0.52 k/uL (0); Metamyelocytes % 5 %; Monocytes # (M) 0.21 k/uL (0-1.0); Myelocytes # (M) 0.21 k/uL (0); Myelocytes % 2 %; Neutrophils % (M) 69 %; Nucleated Red Blood Cells 2 /100 WBC (0-0); WBC 10.4 k/uL (3.8-10.6)
[2018-08-21 07:15] LABS: Polychromasia Present
[2018-08-21 07:16] LABS: Large Platelets Present; Toxic Granulation Present
[2018-08-21] MEDS: IPRATROPIUM-ALBUTEROL 3 ML NEB INHALATION SCH ×2 (07:35→11:47)
[2018-08-21 08:24] VITALS: PULSE 0; RESP 0
[2018-08-21] MEDS ORDERED: DAPTOmycin 500 MG in SODIUM CHLORIDE 0.9% 50 ML IVPB SCH (09:00)
--- NOTE | 2018-08-21 09:54 | PN ---
PROGRESS NOTE This is a 58-year-old female well known to me. I actually saw her initially when I was here 3 weeks ago. She ended up with an exploratory laparotomy due to a diverticular abscess. She had a sigmoid colectomy, colostomy and appendectomy at that time. She is postop day #22. Unfortunately, she developed severe acute hypoxemic respiratory failure secondary to septic ARDS. The patient had a repeat exploratory laparotomy with small-bowel resection and abscess drainage with diverting ileostomy and she is postop day #13 on that. Unfortunately, she has had continued deterioration. She was finally made DO NOT RESUSCITATE by her . This morning, I am called to the bedside because she has a blood pressure of 40. She is already currently maxed out on all sorts of medications here. For that reason, I talked to the and he decides to make the patient comfort measures only. The patient is doing very, very poorly obviously. She remains on the ventilator though. Her ventilator settings include the assist-control mode rate of 36, tidal volume 350, FiO2 100%, PEEP of 14. Blood gases on those setting show a PaO2 of 62, a PaCO2 of 70, and a pH 7.15. These blood gases are consistent with a profound respiratory acidosis and hypoxemia. She is currently on Levophed or norepinephrine at 11 mcg/minute, Nimbex at 1 mg/minute, Diprivan at 45 mcg/kg per minute, TPN at 45 mL an hour, D5W with 3 amps of bicarb at 100 mL an hour. The patient is also on fentanyl drip at 50 mcg/hour. The patient has E coli group A and group B streptococci as well as anaerobic bacteria and various wound samples. The patient was initially extubated on the and re-intubated on the and had her tracheostomy performed on August 14. Currently, she is unresponsive. She is sedated and paralyzed. Current vital signs include a respiratory rate which was about 40 breaths per minute, a heart rate which was about 100 beats per minute, a blood pressure of somewhere between 40 to 70 systolic. Last temperature was 97.1. Saturations were in the high 70s and low 80s. Currently sedated and paralyzed. There is no orally placed endotracheal tube. HEENT examination is grossly unremarkable. NECK: Supple. Full range of motion. Cardiovascular examination reveals tachycardia. Heart rate about 105. S1, S2 normal. Heart sounds are distant. Lungs reveal coarse bilateral rhonchi. Breath sounds are equal bilaterally but diminished throughout. Abdomen is soft. No bowel sounds. The wound is open and weeping. Extremities are quite edematous. There is diffuse anasarca and edema. Skin is without obvious rash, although there is some areas of ecchymoses. The left thumb is cyanotic. Neurologic examination could not be properly evaluated. LABS: Labs are reviewed. Today her white count 10.4, hemoglobin 8.5, hematocrit 26.9, platelet count is 32,000. Blood gases show PO2 of 62 and pCO2 of 70 and the pH is 7.15, that is on 100% and 14 of PEEP. Sodium 129, potassium 3.9, chloride 89, CO2 is 24, anion gap is 16. BUN and creatinine was 94 and 2.53. Her total bilirubin was 1.5, alkaline phosphatase was 158. Phosphorus is 5.8. Calcium is 7.4. Albumin 1.9. Microbiology is evaluated. Chest x-ray shows diffuse bilateral infiltrates consistent with the acute respiratory distress syndrome. The tracheostomy is noted. ASSESSMENT: 1. Postoperative day #22, status post exploratory laparotomy for diverticular abscess, with bowel perforation, with a subsequent sigmoid colectomy, colostomy and appendectomy. Again, this is postop day #22. Subsequent re-exploration postoperative day #13 with a small-bowel resection, drainage of abscess and diverting ileostomy. 2. Acute respiratory failure, hypoxemic in nature secondary to septic ARDS. 3. Acute septic shock secondary to intraabdominal abscess. 4. Diffuse anasarca and edema secondary to excess fluid and hypoalbuminemia. 5. Status post weeping open abdominal wound with necrotic edges. 6. Extensive subcutaneous emphysema from pneumomediastinum. 7. History of chronic anemia. 8. Adrenal insufficiency. 9. 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 10.Status post tracheostomy, postoperative day #7. 11.Acute kidney injury, probably secondary to acute tubular necrosis from sepsis. 12.Multiorgan system failure. PLAN: I did have a discussion with the . is agreeable to moving the patient to a comfort care status. He is on his way into the hospital. The patient is currently on maximal medical therapy without improvement. She had been given every chance to turn around. She has been maintained on all sorts of medications over the course of her hospitalization here. She remains on good antibiotics. Unfortunately, she has not responded to the therapy. Additional recommendations and suggestions are forthcoming. Prognosis is very poor. CRITICAL CARE TIME: 36 minutes. ELENA / ESPERANZA: [id number] /
[2018-08-21] MEDS ORDERED: [UNRECOGNIZED DRUG - REMARK] IV SCH ×8 (11:00)
--- NOTE | 2018-08-21 18:13 | P.DS ---
Providers Date of admission: 07/26/18 23:20 Expected date of discharge: 08/21/18 Attending physician: Saurabh Blankenship MD Consults: 07/28/18 09:26 Consult Physician Routine Consulting Provider: Eyad Robles Consult Reason/Comments: Elevated INR, not on anticoagulation Do you want consulting provider notified?: Yes 07/28/18 10:27 Consult Physician Routine Consulting Provider: Velia Ulloa Consult Reason/Comments: antibiotic guidance Do you want consulting provider notified?: Yes 07/30/18 09:33 Consult Physician Routine Consulting Provider: Yoni De La Paz Consult Reason/Comments: sepsis Do you want consulting provider notified?: Yes 07/31/18 10:51 Consult Physician Routine Consulting Provider: Rohit Jacobson Consult Reason/Comments: surgical Do you want consulting provider notified?: Already Contacted 08/02/18 03:01 Consult Physician Stat Consulting Provider: Toby Dallas Consult Reason/Comments: L thumb blue-purple, no radial pulse Do you want consulting provider notified?: Yes 08/18/18 09:51 Consult Physician Routine Consulting Provider: Erik Jacome Consult Reason/Comments: acute renal failure Do you want consulting provider notified?: Yes Primary care physician: Nathanael Wagner Hospital Course: Discharge Diagnosis: Diverticulitis with abscess and bowel perforation with septic shock s/p sigmoid colectomy, small bowel resection X 2 and appendectomy and debridement of wound necrosis Multiorgan dysfunction syndrome ARDS Non-anion gap metabolic acidosis Hypercapnic respiratory acidosis Oliguric Acute kidney injury with ATN Pneumomediastinum Acute blood loss anemia Relative adrenal insufficiency Hyperglycemic secondary to steroids and TPN Acute hypoxic respiratory failure secondary to ARDS Postoperative ileus Severe protein calorie malnutrition Left thumb necrosis Thrombocytopenia Hyponatremia Hypokalemia Hypophosphatemia Hypomagnesemia Coagulopathy Lactic acidosis Transaminitis Hospital Course: Patient is a 58-year-old female with no significant past medical history who presented to the emergency department at the recommendations of her PCP for dehydration, nausea, and vomiting. In the emergency department she underwent an extensive evaluation. Computed tomography scan of the abdomen showed diverticular abscess with partial bowel obstruction she was admitted for further management. Initial laboratory analysis showed a sodium of 132, carbon dioxide 21, and a negative urinalysis. She was started on IV fluids, antibiotics, and was admitted. General surgery was consulted. Patient initially wanted conservative management and did not want surgery. Interventional radiology was consulted and she underwent abscess drained with placement of percutaneous drain on 07/28/18. She was found to have an elevated PTT and hematology was consulted. They felt that this was likely due to poor nutritional intake and ordered additional vitamin K. Her PT INR normalized with additional vitamin K. She was seen by ID who discontinue meropenem and started her on Zosyn. She had initially been progressing well. Overnight on she developed increasing pain and nausea. She started requiring IV narcotics for treatment of her pain. She then became tachycardic. Morning blood work on 07/30 showed a depressed white blood cell count at 2.5, and carbon dioxide of 12. Stat CT with IV contrast as well as a stat lactic acid and a 1 L fluid bolus was ordered. CT abdomen and pelvis showed free air. Case discussed with Dr. Jacobson and patient was taken urgently to the operating room for ex-lap due to perforated viscus. During the procedure, the patient was noted to have fecal peritonitis and underwent a sigmoid colectomy with end colostomy. She was transferred to the ICU post-operatively and was started on IV pressors. The patient was extubated on 07/31/18. However, she continued to require Levophed. ID recommended the patient to be switched to Unasyn and Flagyl. A random cortisol level was drawn and was 22, for which patient was started on hydrocortisone for suspected adrenal insufficiency. On 08/02 the patient developed respiratory distress and was re-intubated. She was also noted to have L thumb discoloration with history of art line placement on that wrist she was round to have right radial artery occlusion. Vascular surgery was consulted and did not recommend urgent surgical intervention. Her pressors were able to taken off momentarily on 08/06 but required to be restarted on 08/07. She had a dusky appearance to the wound edges and was taken back to the OR on 08/09 and underwent small bowel resection with abdominal wound debridement. She underwent an echocardiogram which showed a hyperdynamic left ventricle with ejection fraction 70%. She was weaned off pressors by 08/11/18. Patient developed subcutaneous emphysema on the morning of 08/11. Chest x-ray showed no evidence of pneumothorax but did demonstrate pneumomediastinum which was an anticipated complication of high PEEP ventilation required for her ARDS. Her hgb dropped on the morning of 08/11 and she was transfused 2 units of packed red blood cells. She was maintained coverage and broad-spectrum antibiotics with Vanco, Zosyn, and Eraxis. She had her trach placed on 08/14 along with debridement of her abdominal wall wound. She had placement of a right brachial art line on 08/[address] Carlisle. Her Solu-Cortef was decreased and 08/15 her norepinephrine did have to be restarted but was stopped by 08/16. On 08/16 surgery felt that there will be no additional surgical procedures performed due to her overall poor preformace status and lack of clinical improvement. She did have an elevated vancomycin trough on 08/15 and then developed some elevated creatinine. Nephrology was consulted who recommended resuming Lasix. Her hemoglobin dropped overnight on 08/18 and she was given 1 additional unit of packed red blood cells. She became hypothermic and hypotensive on 08/18 and levophed was restarted. She was more acidotic despite the bicarb gtt and was placed on paralytics again the morning of 08/20. Her WBC count started to increase again. She became oliguric but was determined not to be a dialysis candidate secondary to her hemodynamic instability. She was made a DO NOT RESUSCITATE and 08/19. Multiple conversations were had with her over the course of her care explaining that she had not shown any signs of improvement and had actually been declining throughout her hospitalization. On 08/20 she needed to be placed back on 100% on the ventilator. She continued to be hypoxic and her PEEP was again increased. She continued to do poorly and remained hypoxic. Her was contacted that there was nothing more we can do on the ventilator to keep her oxygen levels up. She subsequently on 08/21 at 0821. A total of 40 minutes of time were spent preparing this complex discharge summary . Patient Condition at Discharge: Serious Plan - Discharge Summary New Discharge Prescriptions: No Action Sucralfate [Carafate] 1 gram PO TID Omeprazole 20 mg PO DAILY Discharge Medication List Omeprazole 20 mg PO DAILY 07/26/18 [History] Sucralfate [Carafate] 1 gram PO TID 07/26/18 [History] Follow up Appointment(s)/Referral(s): Nathanael Wagner MD [Primary Care Provider] - 1-2 days Rohit Jacobson MD [STAFF PHYSICIAN] - 1 Week Activity/Diet/Wound Care/Special Instructions: If pt goes home with the drain, the dressing will require changing on Tuesday, Aug 04, 2018. Call interventional radiology to set this up. If pt goes home with the drain, teach to flush with 10cc NS BID. per Dr Fleming's instructions. Discharge Disposition: - Preliminary Cause of Preliminary Cause of : diverticulitis with perforation
[2018-08-22 09:01] LABS: ABG PH 7.15 (7.35-7.45)
== END 2018-08-21 13:50 | disposition expired | DRG 3 ==
LOC: EC 16:58 → 6PED 23:20 → 2SICU 07-30 12:24
PROVIDERS: ADMIT Internal Medicine; ATTEND Internal Medicine
PROC: 30233L1 Transfusion of Nonautologous Fresh Plasma into Peripheral Vein, Percutaneous Approach (ICD-10-PCS; 2018-07-27)
PROC: 0D9N30Z Drainage of Sigmoid Colon with Drainage Device, Percutaneous Approach (ICD-10-PCS; 2018-07-28)
PROC: 0DBN0ZZ Excision of Sigmoid Colon, Open Approach (ICD-10-PCS; 2018-07-30)
PROC: 0D1N0Z4 Bypass Sigmoid Colon to Cutaneous, Open Approach (ICD-10-PCS; 2018-07-30)
PROC: 0DB80ZZ Excision of Small Intestine, Open Approach (ICD-10-PCS; 2018-07-30)
PROC: 0DTJ0ZZ Resection of Appendix, Open Approach (ICD-10-PCS; 2018-07-30)
PROC: 5A1945Z Respiratory Ventilation, 24-96 Consecutive Hours (ICD-10-PCS; 2018-07-30)
PROC: 0BH17EZ Insertion of Endotracheal Airway into Trachea, Via Natural or Artificial Opening (ICD-10-PCS; 2018-07-30)
PROC: 5A1955Z Respiratory Ventilation, Greater than 96 Consecutive Hours (ICD-10-PCS; 2018-08-02)
PROC: 0BH17EZ Insertion of Endotracheal Airway into Trachea, Via Natural or Artificial Opening (ICD-10-PCS; 2018-08-02)
PROC: 0DB80ZZ Excision of Small Intestine, Open Approach (ICD-10-PCS; 2018-08-08)
PROC: 0D1B0Z4 Bypass Ileum to Cutaneous, Open Approach (ICD-10-PCS; 2018-08-08)
PROC: 0W9G0ZZ Drainage of Peritoneal Cavity, Open Approach (ICD-10-PCS; 2018-08-08)
PROC: 30243N1 Transfusion of Nonautologous Red Blood Cells into Central Vein, Percutaneous Approach (ICD-10-PCS; principal; 2018-08-11)
PROC: 5A1955Z Respiratory Ventilation, Greater than 96 Consecutive Hours (ICD-10-PCS; 2018-08-14)
PROC: 03HY32Z Insertion of Monitoring Device into Upper Artery, Percutaneous Approach (ICD-10-PCS; 2018-08-14)
PROC: 4A133B1 Monitoring of Arterial Pressure, Peripheral, Percutaneous Approach (ICD-10-PCS; 2018-08-14)
PROC: 4A133J1 Monitoring of Arterial Pulse, Peripheral, Percutaneous Approach (ICD-10-PCS; 2018-08-14)
PROC: 0B110F4 Bypass Trachea to Cutaneous with Tracheostomy Device, Open Approach (ICD-10-PCS; 2018-08-14 07:30)
DX: A41.9 Sepsis, unspecified organism (principal); E43 Unspecified severe protein-calorie malnutrition; J96.01 Acute respiratory failure with hypoxia; J96.02 Acute respiratory failure with hypercapnia; K65.1 Peritoneal abscess; K72.00 Acute and subacute hepatic failure without coma; N17.0 Acute kidney failure with tubular necrosis; R65.21 Severe sepsis with septic shock; D62 Acute posthemorrhagic anemia; D68.9 Coagulation defect, unspecified; E27.40 Unspecified adrenocortical insufficiency; E87.1 Hypo-osmolality and hyponatremia; E87.4 Mixed disorder of acid-base balance; I74.2 Embolism and thrombosis of arteries of the upper extremities; K56.600 Partial intestinal obstruction, unspecified as to cause; K56.7 Ileus, unspecified; K57.20 Diverticulitis of large intestine with perforation and abscess without bleeding; T79.7XXA Traumatic subcutaneous emphysema, initial encounter; T81.30XA Disruption of wound, unspecified, initial encounter; Z99.11 Dependence on respirator [ventilator] status; I96 Gangrene, not elsewhere classified; T81.31XA Disruption of external operation (surgical) wound, not elsewhere classified, initial encounter; T81.41XA Infection following a procedure, superficial incisional surgical site, initial encounter; Z51.5 Encounter for palliative care; Z66 Do not resuscitate; D69.6 Thrombocytopenia, unspecified; D72.819 Decreased white blood cell count, unspecified; E56.1 Deficiency of vitamin K; E77.8 Other disorders of glycoprotein metabolism; E83.39 Other disorders of phosphorus metabolism; E83.42 Hypomagnesemia; E86.0 Dehydration; E87.6 Hypokalemia; G89.29 Other chronic pain; I50.9 Heart failure, unspecified; K21.9 Gastro-esophageal reflux disease without esophagitis; K66.8 Other specified disorders of peritoneum; R73.03 Prediabetes; T36.8X5A Adverse effect of other systemic antibiotics, initial encounter; T38.0X5A Adverse effect of glucocorticoids and synthetic analogues, initial encounter; Z79.899 Other long term (current) drug therapy; Z82.0 Family history of epilepsy and other diseases of the nervous system; Z82.49 Family history of ischemic heart disease and other diseases of the circulatory system; Z83.3 Family history of diabetes mellitus; Z90.710 Acquired absence of both cervix and uterus
CPT/HCPCS: 36415; 36600; 71045; 74018; 74176; 74177; 75989; 77012; 80048; 80053; 80202; 81001; 82040; 82150; 82330; 82533; 82550; 82607; 82728; 82747; 82805; 83036; 83540; 83550; 83605; 83690; 83735; 84100; 84132; 84478; 85025; 85027; 85045; 85049; 85384; 85610; 85730; 86022; 86850; 86900; 86901; 86920; 87040; 87070; 87075; 87077; 87086; 87186; 87205; 88302; 88307; 93005; 93306; 94002; 94003; 94640; 94660; 96361; 96365; 99285